=== PATIENT | male | born 1950 | race Caucasian/White ===

== ENCOUNTER → 2017-10-10 11:02 | Outpatient (CLI) | payer MEDICARE, OTHER, SELFPAY ==
[2017-10-10 09:46] VITALS: BP 143/83; BMI 28.7
[2017-10-10 12:02] LABS: Absolute Neutrophil Count 2.9 X10^3/uL (2.0-7.7); Basophil# 0.03 X10^3/uL; Basophil% 0.5 % (0-1); Eosinophil# 0.08 X10^3/uL; Eosinophils% 1.4 % (0-5); Hemoglobin 15.8 g/dl (13.0-16.5); Lymphocyte % 37.4 % (19-41); Mean Corp Hgb Conc 32.9 g/gl (32-36); Mean Corpuscular Hgb 33.9 pg (27.0-32.0); Monocyte# 0.67 X10^3/uL; Monocyte% 11.4 % (0-10); Neutrophil # 2.89 X10^3/uL (2.7-7.7); Neutrophil % 49.1 % (47-70); POSITIVE COUNT NO; POSITIVE DIFFERENTIAL NO; POSITIVE MORPHOLOGY NO; Platelet Count 171 K/mm3 (150-450); RBC Distribution Width SD 52.3 fl (35.1-43.9); Red Blood Count 4.66 M/mm3 (4.6-6.2); White Blood Count 5.9 K/mm3 (4.4-11.0)
[2017-10-10 12:29] LABS: AST(SGOT) 16 U/L (15-37); Alanine Aminotransfer ALT/SGPT 26 U/L (16-61); Albumin, Serum 3.8 g/dL (3.2-5.0); Alkaline Phosphatase 64 U/L (45-117); Anion Gap 5 (5-15); BUN 15 mg/dL (7-18); BUN/Creat Ratio 14.9 RATIO (10-20); Calcium,Total 8.8 mg/dL (8.5-10.1); Chloride 106 mmol/L (98-107); Cholesterol 232 mg/dL (200); Creatinine, Serum 1.01 mg/dL (0.70-1.30); EST Glomerular Filtration Rate 78 mL/min (>60); Est Glom Filt Rate - Afr Amer 95 mL/min (>60); Globulin 3.7 g/dL (2.2-4.2); Glucose 93 mg/dL (70-110); High Density Lipoprotein 37 mg/dL; Potassium 4.5 mmol/L (3.5-5.1); Protein, Total 7.5 g/dL (6.4-8.2); Sodium Level 138 mmol/L (136-145); Thyroid Stim Hormone (TSH) 1.85 uIU/mL (0.358-3.74); Triglycerides 117 mg/dL; Very Low Density Lipoprotein 23 mg/dL (5-40)
== END ==
PROVIDERS: Family Provider Internal Medicine; PCP Internal Medicine; Visit Provider Nurse Practitioner Family
DX: E78.5 Hyperlipidemia, unspecified (principal); J44.9 Chronic obstructive pulmonary disease, unspecified; G47.33 Obstructive sleep apnea (adult) (pediatric); N40.0 Benign prostatic hyperplasia without lower urinary tract symptoms; K64.9 Unspecified hemorrhoids; E66.9 Obesity, unspecified; Z13.29 Encounter for screening for other suspected endocrine disorder
CPT/HCPCS: 80053; 80061; 84443; 85025

== ENCOUNTER → 2017-12-04 09:36 | Outpatient (CLI) | payer MEDICARE, OTHER, SELFPAY ==
--- NOTE | 2017-12-04 09:55 | EKG12_ITS ---
Test Reason : PRE-OP Blood Pressure : / mmHG Vent. Rate : 050 BPM Atrial Rate : 050 BPM P-R Int : 150 ms QRS Dur : 088 ms QT Int : 448 ms P-R-T Axes : 062 073 064 degrees QTc Int : 408 ms Sinus bradycardia Otherwise normal ECG Confirmed by ISABEL GUNDERSON, OBN ([id number]), editor school photograph CARLY NOE ([id number]) on 12/05/2017 3:20:13 PM Referred By: Yang Abdul Confirmed By:BON HALL MD
--- NOTE | 2017-12-04 10:10 | RAD_ITS ---
STUDY: X-RAY CHEST REASON FOR EXAM: Male, 67 years old. Post operative evaluation for left knee arthroscopy, medial meniscectomy and chondroplasty. TECHNIQUE: PA and lateral views of the chest. COMPARISON: Prior chest radiograph of June 18, 2017. FINDINGS: Mild hyperexpansion. Negative for consolidation, focal atelectasis or pleural effusion. There is no demonstrated pleural abnormality. Normal size heart. Normal mediastinum and cher. Normal visualized pulmonary arteries. Normal visualized aortic arch and descending thoracic aorta. There are diffuse degenerative changes of the visualized thoracic spine. Normal visualized ribs, clavicles, and shoulders. There is no demonstrated abnormality of the visualized soft tissue structures of the upper abdomen. RAD/Chest PA and Lateral IMPRESSION: Mild hyperexpansion suggesting a component of COPD without other acute cardiopulmonary findings. Electronically Signed: Maribell Ellison MD at 22:43 EDT , Service support ,
[2017-12-04 10:30] LABS: Hematocrit 49.5 % (40-54); Hemoglobin 16.3 g/dl (13.0-16.5); Mean Corp Hgb Conc 32.9 g/gl (32-36); Mean Corpuscular Hgb 33.7 pg (27.0-32.0); Mean Corpuscular Volume 102.3 fL (80-94); Mean Platelet Vol. 10.1 fl (6.2-12.0); Platelet Count 160 K/mm3 (150-450); RBC Distribution Width CV 13.6 % (11.6-14.6); RBC Distribution Width SD 51.1 fl (35.1-43.9); Red Blood Count 4.84 M/mm3 (4.6-6.2); White Blood Count 5.3 K/mm3 (4.4-11.0)
[2017-12-04 10:33] LABS: Scan Indicated on CBC? Y/N NO
[2017-12-04 10:53] LABS: Anion Gap 6 (5-15); BUN 14 mg/dL (7-18); BUN/Creat Ratio 14.2 RATIO (10-20); Calcium,Total 8.8 mg/dL (8.5-10.1); Chloride 104 mmol/L (98-107); Creatinine, Serum 0.98 mg/dL (0.70-1.30); EST Glomerular Filtration Rate 81 mL/min (>60); Est Glom Filt Rate - Afr Amer 98 mL/min (>60); Glucose 104 mg/dL (74-106); Potassium 4.4 mmol/L (3.5-5.1); Sodium Level 137 mmol/L (136-145)
== END ==
PROVIDERS: Family Provider Internal Medicine; PCP Internal Medicine; Visit Provider Orthopaedic Surgery
DX: Z01.810 Encounter for preprocedural cardiovascular examination (principal); Z01.811 Encounter for preprocedural respiratory examination; Z01.818 Encounter for other preprocedural examination
CPT/HCPCS: 36415; 71046; 80048; 85027; 93005

== ENCOUNTER → 2017-12-13 11:09 | Outpatient (CLI) | payer MEDICARE, OTHER, SELFPAY ==
--- NOTE | 2017-12-13 11:11 | VDLE_ITS ---
Reason For Study: LLE PAIN RIGHT LEFT CFV is compressible, spontaneous, phasic, GSV is normal. competent and demonstrates normal CFV is compressible, spontaneous, phasic, augmentation. competent, and demonstrates normal Procedure augmentation. Exam performed in department. FV is compressible, spontaneous, phasic, The study was technically difficult. competent and demonstrates normal PT could not tolerate compression at left augmentation. knee area; relied on color and pulsed wave POP V is spontaneous, phasic, competent and doppler. demonstrates normal augmentation. Unable to A preliminary report was called and/or faxed compress due to knee pain; relied on color to Dr. Abdul @ [phone] @ 11:45 am. doppler and pulsed wave doppler to assess. T/P Trunk is compressible. PTV is compressible. LT PerV is compressible. Interpretation Summary Deep veins of the left lower extremity are patent and compressible segmentally. There is no evidence of left lower extremity deep vein thrombosis. Valvular competence appears intact within the proximal deep venous system on the left . The left greater saphenous vein appears patent and compressible segmentally. Ordering Physician: Yang Abdul Referring Physician: Wade Padilla Performed By: Deana Downey, SABRINA, RVT
== END ==
PROVIDERS: Family Provider Internal Medicine; PCP Internal Medicine; Visit Provider Orthopaedic Surgery
DX: M79.662 Pain in left lower leg (principal); M17.12 Unilateral primary osteoarthritis, left knee; S83.232A Complex tear of medial meniscus, current injury, left knee, initial encounter; X58.XXXA Exposure to other specified factors, initial encounter; Y93.9 Activity, unspecified; Y92.9 Unspecified place or not applicable; Y99.9 Unspecified external cause status
CPT/HCPCS: 93971

== ENCOUNTER 2018-04-12 18:05 | Emergency (ER) | payer MEDICARE, OTHER, SELFPAY ==
[2018-04-12 18:06] VITALS: BP 119/68; PULSE 76; RESP 16; TEMP 36.9; O2SAT 99; BMI 28.8
[2018-04-12 18:52] LABS: D-Dimer Quantitative (DVT/PE) 1.02 FEU/ug/m (0.27-0.49)
--- NOTE | 2018-04-12 19:07 | ED.VISSUMM ---
- ER Visit Summary Date of Service: 04/12/18 Chief Complaint: [Pain and swelling left leg] History of Present Illness: The patient is a 67 M [presents the emergency department with complaint of pain and swelling in his left leg that he has had off and on for quite some time. Patient states that he supposed to wear compression stockings in his left leg but has not on a regular basis.] Patient states that today he was working in the yard when he came in he noticed some rash and redness to the foot and ankle became concerned. Patient also is complaining of discomfort in his ankle and is concerned about possibility of gout. Patient denies any trauma to his leg. He denies recent travel or surgery. 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 Physical Examination: [HEENT-PERRLA, EOMI. Cranial nerves II through XII grossly intact. TMs clear. Mucous membranes moist. No adenopathy. Cardiovascular-regular rate and rhythm without murmur or ectopy Lungs-clear to auscultation, chest wall stable without crepitus or subcu emphysema Abdomen-normoactive bowel sounds, soft, nontender, no rebound or rigidity, no peritoneal signs. Extremities-intact ?4, normal range of motion, normal pulses, atraumatic. Left leg-patient does have some faint erythema over the area of the ankle and dorsum of the foot with patchy erythematous rash noted. No lymphogenic streaking noted. Neurovascular intact. Patient has some mild soft tissue swelling about the ankle. Mild tenderness on range of motion of the ankle. D-dimer obtained was elevated at one-point Test Results: [02.] Emergency Department Course and Treatment: Patient was given 1 dose of Xarelto 20 mg p.o. and 1 dose of Keflex 500 mg's p.o. [] Treatment Plan: [Patient will be treated with Keflex and I will have him come back tomorrow to have an ultrasound of the left lower extremity rule out DVT. At this point my suspicion for gout is low although I did advise patient to use ibuprofen as tolerated for discomfort. Patient also states he has pain medication at home.] Disposition: [Discharged home in stable condition] Impression: [Left ankle pain Cellulitis] This note was generated with [employer] dictation software. It may contain incorrect words, spelling, and punctuation that were not noted in review of the chart prior to signing ED Disposition - Plan for ED Patient: Chief Complaint: Lower Extremity Injury Referrals: Wade Padilla MD [Primary Care Provider] -
--- NOTE | 2018-04-12 19:10 | ED.RN ---
DR MITCHELL NOTIFIED OF DDIMER RESULTS
--- NOTE | 2018-04-12 19:14 | ED.DEP ---
ED Disposition - Plan for ED Patient: Chief Complaint: Lower Extremity Injury Instructions: ED Infec Skin Cellulitis Prescriptions: Cephalexin [Keflex] 500 mg PO Q6 #40 cap Referrals: Wade Padilla MD [Primary Care Provider] - 5-7 Days
[2018-04-12] MEDS: Cephalexin Suspension 250 MG/5 ML PO.SYRINGE 500 MG PO (19:30)
[2018-04-12] MEDS: Rivaroxaban 20 MG Tablet PO (19:30)
== END 2018-04-12 19:36 | disposition home or self-care (01) ==
PROVIDERS: Emergency Provider Emergency Medicine; Family Provider Internal Medicine; PCP Internal Medicine
DX: M25.572 Pain in left ankle and joints of left foot (principal); L03.116 Cellulitis of left lower limb; R74.9 Abnormal serum enzyme level, unspecified; G47.30 Sleep apnea, unspecified; Z72.0 Tobacco use; Z79.82 Long term (current) use of aspirin; Z79.899 Other long term (current) drug therapy; Z86.718 Personal history of other venous thrombosis and embolism
CPT/HCPCS: 85379; 99283

== ENCOUNTER 2018-04-13 09:49 | Emergency (ER) | payer MEDICARE, OTHER, SELFPAY ==
[2018-04-13 09:50] VITALS: BP 149/74; PULSE 55; RESP 18; TEMP 36.6; O2SAT 96; BMI 27.1
--- NOTE | 2018-04-13 10:10 | VDLE_ITS ---
Reason For Study: SWELLING Procedure LEFT Exam performed portable in patient room. GSV is normal. A preliminary report was called and/or faxed CFV is compressible, spontaneous, phasic, to ED. competent, and demonstrates normal augmentation. FV is compressible, spontaneous, phasic, competent and demonstrates normal augmentation. POP V is compressible, spontaneous, phasic, competent and demonstrates normal augmentation. T/P Trunk is compressible. PTV is compressible. LT PerV is compressible. Interpretation Summary Deep veins of the left lower extremity are patent and compressible segmentally. There is no evidence of left lower extremity deep vein thrombosis. Valvular competence appears intact within the proximal deep venous system on the left . The left greater saphenous vein appears patent and compressible segmentally. Ordering Physician: Kathia Gamez Referring Physician: Ida Cruz Performed By: Lilli Pham, SABRINA, RVT
--- NOTE | 2018-04-13 10:11 | ED.VISSUMM ---
- ER Visit Summary Date of Service: 04/13/18 Chief Complaint: [] Rash to the left leg, now the right leg, now the hands, sore throat needs duplex scan History of Present Illness: The patient is a 67 M [] he reports that basically for a few days he has noticed swelling to the left lower extremity with a rash he does report history of DVT in that lower extremity related to knee surgery about a year or 2 ago, he has had persistent intermittent edema to that extremity, then in January 2018 had recurrent knee surgery in his knee condition and leg problems seem to improve, he reports was out working in the yard he suffered no direct trauma he cannot explain why he has a rash and he indicates he has history of gout and is concerned that gout may be contributing to part of his condition Was seen yesterday in the emergency department workup was generally unremarkable he was instructed to have a duplex scan done today, to rule out DVT in the left leg, he was not called by the duplex technologist he reports and he presents to the emergency department to obtain a duplex scan, In addition today he reports he noticed small similar bumps on the right leg that are present on the left leg but they were not present yesterday, he further reports that today he has the same types of bumps on the palms of his hands, he has had a sore throat for a few days he did not mention to the physicians yesterday There is also believe that his granddaughter has similar lesions on her hands and feet and sore throat He indicates he believes his daughter might have some type of a URI process Been eating and drinking well no chest pain shortness of breath no fever no cough his review of systems otherwise negative Physical Examination: [] Is resting comfortably in the bed he has about 2+ edema to the left ankle region, he does have small papules scattered throughout the foot dorsal plantar left, he has similar lesions now on the right foot dorsal and plantar surface, he has no real pain to the extremity except some mild discomfort when he tries to dorsiflex the left ankle there is no signs of joint infection, he has no skin breakdown petechia or purpura anywhere in his body, his hands he has similar small bumps on the palms of his hands and dorsal surface of hands, his throat shows some redness no obvious vesicles Is resting in the bed no distress speaking full sentences his neck is very supple his lungs are clear his heart tones are normal the abdomen soft nontender the upper lower extremity skin exam are as above Now this all began with left lower extremity rash and edema and some mild pain the patient has progressed now to have rash on both lower extremities and the hands and a sore throat this is consistent with ghmo-bznc-tfa-mouth condition, 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 and was to obtain an outpatient duplex scan he is interested in having the duplex scan done and will contact the duplex tach and they will be in to do his scan shortly The patient's labs CBC chemistry are all generally unremarkable x-ray of the ankle were unremarkable duplex scan showed no signs of DVT may be some regional lymph nodes While in the ED the patient's granddaughter came in to be evaluated by the other providers and was found to have emve-uyiq-fej-mouth disease Test Results: [] Explained all the above the patient I explained to visually no signs of cellulitis this is likely abpt-synd-gwd-mouth disease contributing to his constellation of symptoms he was given 1 dose of Keflex yesterday I provide him additional dose of Keflex as a iwvb-gja-fcc measure if he feels the rash is getting worse he can take the Keflex otherwise and follow-up his family doctor tomorrow if he needs walking aid such as a walker will provide that Aircast and he will return for change in symptoms and we also discussed the concept of pdkl-ihgt-hyf-mouth disease contagious nature how to manage the condition etc. Emergency Department Course and Treatment: [] Treatment Plan: [] Disposition: [] Home stable Impression: [] Lesions on hand and feet oral cavity suspect hand-foot mouth disease, left lower extremity edema This note was generated with [employer] dictation software. It may contain incorrect words, spelling, and punctuation that were not noted in review of the chart prior to signing ED Disposition - Plan for ED Patient: Chief Complaint: Cellulitis Referrals: Wade Padilla MD [Primary Care Provider] -
--- NOTE | 2018-04-13 10:16 | ED.DCSUM_ITS ---
- ER Visit Summary Date of Service: 04/13/18 Chief Complaint: [] Rash to the left leg, now the right leg, now the hands, sore throat needs duplex scan History of Present Illness: The patient is a 67 M [] he reports that basically for a few days he has noticed swelling to the left lower extremity with a rash he does report history of DVT in that lower extremity related to knee surgery about a year or 2 ago, he has had persistent intermittent edema to that extremity, then in January 2018 had recurrent knee surgery in his knee condition and leg problems seem to improve, he reports was out working in the yard he suffered no direct trauma he cannot explain why he has a rash and he indicates he has history of gout and is concerned that gout may be contributing to part of his condition Was seen yesterday in the emergency department workup was generally unremarkable he was instructed to have a duplex scan done today, to rule out DVT in the left leg, he was not called by the duplex technologist he reports and he presents to the emergency department to obtain a duplex scan, In addition today he reports he noticed small similar bumps on the right leg that are present on the left leg but they were not present yesterday, he further reports that today he has the same types of bumps on the palms of his hands, he has had a sore throat for a few days he did not mention to the physicians yesterday There is also believe that his granddaughter has similar lesions on her hands and feet and sore throat He indicates he believes his daughter might have some type of a URI process Been eating and drinking well no chest pain shortness of breath no fever no cough his review of systems otherwise negative Physical Examination: [] Is resting comfortably in the bed he has about 2+ edema to the left ankle region, he does have small papules scattered throughout the foot dorsal plantar left, he has similar lesions now on the right foot dorsal and plantar surface, he has no real pain to the extremity except some mild discomfort when he tries to dorsiflex the left ankle there is no signs of joint infection, he has no skin breakdown petechia or purpura anywhere in his body, his hands he has similar small bumps on the palms of his hands and dorsal surface of hands, his throat shows some redness no obvious vesicles Is resting in the bed no distress speaking full sentences his neck is very supple his lungs are clear his heart tones are normal the abdomen soft nontender the upper lower extremity skin exam are as above Now this all began with left lower extremity rash and edema and some mild pain the patient has progressed now to have rash on both lower extremities and the hands and a sore throat this is consistent with fhva-fexm-ixl-mouth condition, 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 and was to obtain an outpatient duplex scan he is interested in having the duplex scan done and will contact the duplex tach and they will be in to do his scan shortly The patient's labs CBC chemistry are all generally unremarkable x-ray of the ankle were unremarkable duplex scan showed no signs of DVT may be some regional lymph nodes While in the ED the patient's granddaughter came in to be evaluated by the other providers and was found to have txie-iyeh-mie-mouth disease Test Results: [] Explained all the above the patient I explained to visually no signs of cellulitis this is likely nyda-puvi-yhh-mouth disease contributing to his constellation of symptoms he was given 1 dose of Keflex yesterday I provide him additional dose of Keflex as a iyqo-iii-jxj measure if he feels the rash is getting worse he can take the Keflex otherwise and follow-up his family doctor tomorrow if he needs walking aid such as a walker will provide that Aircast and he will return for change in symptoms and we also discussed the concept of hand- para-obx-jjkrw disease contagious nature how to manage the condition etc. Emergency Department Course and Treatment: [] Treatment Plan: [] Disposition: [] Home stable Impression: [] Lesions on hand and feet oral cavity suspect hand-foot mouth disease, left lower extremity edema This note was generated with [employer] dictation software. It may contain incorrect words, spelling, and punctuation that were not noted in review of the chart prior to signing ED Disposition - Plan for ED Patient: Chief Complaint: Cellulitis Referrals: Wade Padilla MD [Primary Care Provider] -
--- NOTE | 2018-04-13 10:30 | RAD_ITS ---
STUDY: X-RAY - LEFT ANKLE REASON FOR EXAM: Male, 67 years old. History of rash. No known injury. TECHNIQUE: 3 view(s) of the ankle. COMPARISON: None. FINDINGS: Normal visualized distal tibia and fibula. Normal medial and lateral malleoli. Normal tibiotalar articulation and ankle mortise. There is a plantar calcaneal spur. The visualized subtalar, talonavicular, calcaneocuboid and tarsal articulations are normal. There is no demonstrated fracture. There is diffuse soft tissue swelling. RAD/Ankle min 3 Views IMPRESSION: Diffuse soft tissue swelling. No demonstrated acute osseous injury. Electronically Signed: Silver Fam MD at 11:20 EDT Tel , Service support ,
[2018-04-13 10:49] LABS: Absolute Lymphocyte Count 1.51 X10^3/ul (0.83-4.51); Absolute Neutrophil Count 1.4 X10^3/uL (2.0-7.7); Basophil# 0.02 X10^3/uL; Basophil% 0.5 % (0-1); Eosinophil# 0.06 X10^3/uL; Eosinophils% 1.6 % (0-5); Hematocrit 46.3 % (40-54); Hemoglobin 15.1 g/dl (13.0-16.5); Lymphocyte # 1.51 X10^3/ul (4.0); Mean Corp Hgb Conc 32.6 g/gl (32-36); Mean Corpuscular Hgb 33.6 pg (27.0-32.0); Mean Corpuscular Volume 103.1 fL (80-94); Mean Platelet Vol. 9.6 fl (6.2-12.0); Monocyte# 0.74 X10^3/uL; Monocyte% 20.1 % (0-10); Neutrophil # 1.35 X10^3/uL (2.7-7.7); Neutrophil % 36.8 % (47-70); Platelet Count 141 K/mm3 (150-450); RBC Distribution Width SD 53.1 fl (35.1-43.9); Red Blood Count 4.49 M/mm3 (4.6-6.2); White Blood Count 3.7 K/mm3 (4.4-11.0)
[2018-04-13 10:50] LABS: POSITIVE COUNT NO; POSITIVE DIFFERENTIAL NO; POSITIVE MORPHOLOGY NO
[2018-04-13] MEDS: Ondansetron 4 MG/2 ML Vial IV (10:58)
[2018-04-13] MEDS: 0.9% Normal Saline 1,000 ML 100 ML IV (10:58)
[2018-04-13] MEDS: Morphine 4 MG/ML Syringe IV (10:58)
[2018-04-13 11:01] LABS: Anion Gap 9 (5-15); BUN 11 mg/dL (7-18); BUN/Creat Ratio 12.2 RATIO (10-20); Calcium,Total 8.6 mg/dL (8.5-10.1); Chloride 106 mmol/L (98-107); EST Glomerular Filtration Rate 89 mL/min (>60); Est Glom Filt Rate - Afr Amer 108 mL/min (>60); Estimated Creatinine Clearance 84.83 ml/min; Glucose 96 mg/dL (74-106); Potassium 4.3 mmol/L (3.5-5.1); Sodium Level 141 mmol/L (136-145)
--- NOTE | 2018-04-13 12:54 | ED.DEP ---
ED Disposition - Plan for ED Patient: Chief Complaint: Cellulitis Instructions: ED Hand Foot Mouth Disease Ch Prescriptions: Hydrocodone/Acetaminophen [[place] 5-325 Tablet] 1 ea PO BID #7 tab Referrals: Wade Padilla MD [Primary Care Provider] -
--- NOTE | 2018-04-13 12:58 | DCINST.ED_ITS ---
ED Disposition - Plan for ED Patient: Chief Complaint: Cellulitis Instructions: ED Hand Foot Mouth Disease Ch Prescriptions: Cephalexin [Keflex] 500 mg PO Q6 #40 cap Hydrocodone/Acetaminophen [[place] 5-325 Tablet] 1 ea PO BID #7 tab Referrals: Wade Padilla MD [Primary Care Provider] -
--- NOTE | 2018-04-13 13:22 | ED.DEP ---
ED Disposition - Plan for ED Patient: Chief Complaint: Cellulitis Instructions: ED Hand Foot Mouth Disease Ch Prescriptions: Cephalexin [Keflex] 500 mg PO Q6 #40 cap Hydrocodone/Acetaminophen [[place] 5-325 Tablet] 1 ea PO BID #7 tab Walker [Ultra-Light Rollator] 1 ea MC BID #1 ea Referrals: Wade Padilla MD [Primary Care Provider] -
[2018-04-13 13:38] VITALS: BP 138/87; PULSE 58; RESP 16; O2SAT 98
== END 2018-04-13 13:39 | disposition home or self-care (01) ==
PROVIDERS: Emergency Provider Emergency Medicine; Family Provider Internal Medicine; PCP Internal Medicine
DX: B08.4 Enteroviral vesicular stomatitis with exanthem (principal); R60.0 Localized edema; Z79.82 Long term (current) use of aspirin; Z79.899 Other long term (current) drug therapy; Z86.718 Personal history of other venous thrombosis and embolism
CPT/HCPCS: 73610; 80048; 85025; 93971; 96361; 96374; 96375; 99284; J7030; A4216; J2405

== ENCOUNTER → 2018-04-28 08:53 | Outpatient (CLI) | payer MEDICARE, OTHER, SELFPAY ==
[2017-10-15 09:11] VITALS: BP 150/72
[2017-10-15 09:26] VITALS: BMI 28.7
[2018-04-28 09:46] VITALS: PULSE 55; PULSE 57; PULSE 67; PULSE 74; PULSE 77; PULSE 78; PULSE 79; O2SAT 96; O2SAT 97; O2SAT 98; O2SAT 99
--- NOTE | 2018-04-28 13:23 | PCM.PSN.6M ---
PSN 6 Minute Walk Test - 6 Minute Walk Test 6 Minute Walk Test: 6 Minute Walk Test PSN:6-Minute Walk Test Start: 04/28/18 09:46 Freq: Status: Active Protocol: RESP.6MINW Document 04/28/18 09:46 JERILYN (Rec: 04/28/18 09:48 JERILYN [id number]) 6 Minute Walk Test Date Performed 04/28/18 Time Performed 09:05 Height 5 ft 10 in Weight: 87.543 kg Weight in Pounds 193.[address]: Oswaldo La Assistive device used: None Pre-test Oxygen Delivery Method Room Air Pulse Ox (%) 98 Pulse Rate (60-100 beats/min) 55 L Dyspnea David Scale (0-10) 0 Exertion David Scale (6-20) 6 1st minute Oxygen Delivery Method Room Air Pulse Ox (%) 98 Pulse Rate (60-100 beats/min) 67 2nd minute Oxygen Delivery Method Room Air Pulse Ox (%) 97 Pulse Rate (60-100 beats/min) 74 3rd minute Oxygen Delivery Method Room Air Pulse Ox (%) 99 Pulse Rate (60-100 beats/min) 77 4th minute Oxygen Delivery Method Room Air Pulse Ox (%) 98 Pulse Rate (60-100 beats/min) 78 5th minute Oxygen Delivery Method Room Air Pulse Ox (%) 96 Pulse Rate (60-100 beats/min) 79 6th minute Oxygen Delivery Method Room Air Pulse Ox (%) 98 Pulse Rate (60-100 beats/min) 79 Dyspnea David Scale (0-10) 0.5 Exertion David Scale (6-20) 13 Post-test Oxygen Delivery Method Room Air Pulse Ox (%) 99 Pulse Rate (60-100 beats/min) 57 L Full Laps Walked 18 Partial Lap, Number of Tiles Walked 10 Total Distance Walked (ft) 1072 - Interpretation Interpretation: The patient was able to ambulate 1072 feet over the course of 6 minutes on room air with no assistive devices or breaks. There is no significant desaturation or tachycardia noted. These findings are consistent with a normal exercise tolerance. - Recommendations Recommendations: No supplemental oxygen is indicated at this time.
== END ==
PROVIDERS: Family Provider Internal Medicine; PCP Internal Medicine; Visit Provider Nurse Practitioner Acute Care
DX: J41.0 Simple chronic bronchitis (principal)
CPT/HCPCS: 94618

== ENCOUNTER → 2018-05-02 08:00 | Outpatient (CLI) | payer MEDICARE, OTHER, SELFPAY | PROVIDERS: Family Provider Internal Medicine; PCP Internal Medicine; Visit Provider Internal Medicine | DX: R06.02 Shortness of breath (principal); E78.5 Hyperlipidemia, unspecified; I10 Essential (primary) hypertension | CPT/HCPCS: 93005; 93306 ==

== ENCOUNTER → 2018-05-08 06:44 | Outpatient (CLI) | payer MEDICARE, OTHER, SELFPAY ==
[2017-10-15 09:11] VITALS: BP 150/72
[2017-10-15 09:26] VITALS: BMI 28.7
--- NOTE | 2018-05-08 11:12 | PFT ---
INTRODUCTION: The patient is a 67-year-old male that presents for pulmonary function testing secondary to a diagnosis of dyspnea. Respiratory therapy reports good patient effort. Bronchodilators were used during testing. Forced expiration spirometry INTERPRETATION: Forced expiration spirometry demonstrates no evidence of a large airways obstructive ventilatory defect. There was no significant response to aerosolized bronchodilators. Spirograms are of good quality and plateau normally. The respiratory flow volume loop appears normal. Body plethysmography was performed and reveals lung volumes to be within normal limits. Diffusing capacity by single breath CO is also within normal limits. IMPRESSION: Grossly normal pulmonary function testing.
== END ==
PROVIDERS: Family Provider Internal Medicine; PCP Internal Medicine; Visit Provider Nurse Practitioner Acute Care
DX: J41.0 Simple chronic bronchitis (principal); R06.00 Dyspnea, unspecified
CPT/HCPCS: 94060; 94726; 94729

== ENCOUNTER → 2018-05-10 08:27 | Outpatient (CLI) | payer MEDICARE, OTHER, SELFPAY ==
[2018-05-10 10:18] LABS: Anion Gap 8 (5-15); BUN 17 mg/dL (7-18); BUN/Creat Ratio 17.8 RATIO (10-20); Calcium,Total 8.9 mg/dL (8.5-10.1); Chloride 105 mmol/L (98-107); Cholesterol 149 mg/dL (200); Creatinine, Serum 0.96 mg/dL (0.70-1.30); EST Glomerular Filtration Rate 83 mL/min (>60); Est Glom Filt Rate - Afr Amer 101 mL/min (>60); Glucose 104 mg/dL (74-106); High Density Lipoprotein 36 mg/dL; Potassium 4.2 mmol/L (3.5-5.1); Sodium Level 139 mmol/L (136-145); T4 Free Direct 0.87 ng/dL (0.76-1.46); Triglycerides 97 mg/dL; Very Low Density Lipoprotein 19 mg/dL (5-40)
== END ==
PROVIDERS: Family Provider Internal Medicine; PCP Internal Medicine; Visit Provider Internal Medicine
DX: I10 Essential (primary) hypertension (principal); E78.5 Hyperlipidemia, unspecified; R00.1 Bradycardia, unspecified
CPT/HCPCS: 36415; 80048; 80061; 84439; 84443

== ENCOUNTER → 2018-06-16 11:29 | Outpatient (CLI) | payer MEDICARE, OTHER, SELFPAY ==
--- NOTE | 2018-06-16 11:32 | RAD_ITS ---
STUDY: X-RAY - PELVIS AND RIGHT HIP REASON FOR EXAM: Male, 67 years old. Right hip pain. TECHNIQUE: Radiological exam, hip, unilateral, with pelvis when performed; 2 or 3 views. COMPARISON: None. FINDINGS: There is a non-specific bowel gas pattern. Normal visualized soft tissue structures. Normal bilateral iliac wings, sacroiliac joints and visualized sacrum. Normal bilateral superior and inferior pubic rami. Normal pubic symphysis. Normal bilateral ischial tuberosities. Normal visualized femoral head. Normal acetabulum. Normal hip joint. RAD/HIP, UNI W/ Pelvis 2-3 Views IMPRESSION: Normal x-ray examination of the pelvis and right hip. Electronically Signed: Fitz Rayo MD at 13:42 EDT , Service support ,
--- NOTE | 2018-06-16 11:32 | RAD_ITS ---
STUDY: X-RAY - LUMBAR SPINE REASON FOR EXAM: Male, 67 years old. Low back pain. TECHNIQUE: 5 view(s) of the lumbar spine were obtained. COMPARISON: None FINDINGS: Normal lumbar lordosis. There is no substantial scoliosis. There is a normal alignment of the vertebrae. 6 lumbar type vertebral bodies. 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 Using the above convention, there is minimal anterior wedging of the superior endplates of L1 and L2 vertebral bodies. Mild narrowing of the L4-L5 disc space height. Minimal posterior intradiscal calcification at L5 L6 disc level. No acute fractures. Extensive vascular calcifications of the lower abdominal aorta and the common iliac arteries. RAD/L/S Spine Min 4 Views IMPRESSION: 1. No acute osseous abnormality of the lumbar spine. 2. 6 lumbar type vertebral bodies. 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 3. Minimal anterior wedging of the L1 and L2 superior endplates may be developmental or from remote injury. 4. Mild L4-L5 degenerative disc space height narrowing. 5. Minimal posterior intradiscal calcifications at L5 L6 disc level. Electronically Signed: Fitz Rayo MD at 13:45 EDT , Service support ,
== END ==
PROVIDERS: Family Provider Internal Medicine; PCP Internal Medicine; Referring Provider Internal Medicine; Visit Provider Internal Medicine
DX: M54.9 Dorsalgia, unspecified (principal); M25.551 Pain in right hip
CPT/HCPCS: 72110; 73502

== ENCOUNTER 2018-06-25 19:45 | Emergency (ER) | payer MEDICARE, OTHER, SELFPAY ==
[2018-06-25 19:46] VITALS: BP 138/77; PULSE 78; RESP 18; TEMP 36.4; O2SAT 96; BMI 28.0
--- NOTE | 2018-06-25 20:25 | ED.VISSUMM ---
- ER Visit Summary Date of Service: 06/25/18 Chief Complaint: Back pain History of Present Illness: The patient is a [address] Abdul and Dr. Padilla. 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 States that over the same timeframe he is developed low back pain. He describes an aching pain that is 10 out of 10 severity at worst and 9 out of 10 currently. Is worsened by nothing including movement. States that it is partially relieved by a hot tub and ice. He is taken a Medrol Dosepak, [place], and nabumetone without relief. States that it radiates to the anterior surface of his right thigh and he has right hip pain as well. He denies any numbness or weakness. No problems with his bowels or his bladder. No groin numbness. No other trauma. No fall or MVA. Physical Examination: Vitals: Stable. Afebrile. General: A&O x 3. NAD. Cardiovascular exam: Regular rate and rhythm, no murmur, rub or gallop. Respiratory exam: Clear to auscultation bilaterally. No wheezes or stridor. Abdominal exam: Soft, nontender, nondistended, normal bowel sounds. No peritoneal signs. Back: Moderate tenderness to palpation over the paraspinous musculature in the right lumbar region. No point tenderness. Negative straight leg bilaterally. 5/5 DF, PF, EHL bilaterally. Normal sensation to light touch throughout. No rash to suggest shingles. Extremity: No clubbing, cyanosis, or edema. No pain with internal or external rotation of his hip. Test Results: Patient had already had x-rays of his LS spine and hip. These were reviewed as were the reads and it showed nothing acute. Emergency Department Course and Treatment: Had a prolonged discussion the patient at this time I do not have a whole lot more to offer. He was given a dose of Kenalog IM. Treatment Plan: I suggested to the patient that if his back began hurting when he started this job that he take some time off and see if it improves. He will have his [place] changed to Percocet. I also discussed with him getting in to see Dr. Chantell Pandya as soon as possible. With pain radiating to his right leg he may have a radiculopathy. The signs and symptoms of cauda equina syndrome were discussed and he was instructed to return for these. Disposition: To home in improved and stable condition. Impression: 1. Low back pain. This note was generated with [employer] dictation software. It may contain incorrect words, spelling, and punctuation that were not noted in review of the chart prior to signing ED Disposition - Plan for ED Patient: Disposition: Home or Assisted Living Chief Complaint: Back Instructions: ED Neck Back Pain General Prescriptions: Oxycodone HCl/Acetaminophen [Percocet 5/325] 1 tablet PO Q6H PRN PRN 5 Days #20 tablet PRN Reason: Pain Docusate Sodium [Colace] 100 mg PO DAILY #20 capsule Referrals: Yang Abdul DO [STAFF PHYSICIAN] - As soon as possible
[2018-06-25] MEDS: Triamcinolone Acetonide 40 MG/ML Vial 80 MG IM (20:34)
[2018-06-25] MEDS: oxyCODONE 5 MG Tablet PO (20:35)
== END 2018-06-25 20:51 | disposition home or self-care (01) ==
LOC: ED 20:41
PROVIDERS: Emergency Provider Emergency Medicine; Family Provider Internal Medicine; PCP Internal Medicine
DX: M54.5 Low back pain (principal); M25.551 Pain in right hip; M79.651 Pain in right thigh; I10 Essential (primary) hypertension; R05 Cough; G47.33 Obstructive sleep apnea (adult) (pediatric); Z72.0 Tobacco use; Z79.82 Long term (current) use of aspirin; Z79.899 Other long term (current) drug therapy
CPT/HCPCS: 96372; 99282

== ENCOUNTER 2018-06-30 03:04 | Emergency (ER) | payer MEDICARE, OTHER, SELFPAY ==
[2018-06-30 03:05] VITALS: BP 174/78; PULSE 65; RESP 18; TEMP 36.4; O2SAT 96; BMI 28.0
--- NOTE | 2018-06-30 03:42 | RAD_ITS ---
STUDY: X-RAY - RIGHT KNEE REASON FOR EXAM: Male, 67 years old. Pain TECHNIQUE: 4 view(s) of the knee. COMPARISON: None. FINDINGS: Normal visualized distal femur. Normal visualized proximal tibia and fibula. Normal proximal tibiofibular articulation. Normal medial femorotibial compartment. Normal lateral femorotibial compartment. Normal patellofemoral articulation. There is prepatellar soft tissue swelling. There is NO joint effusion. RAD/Knee 4 or More Views IMPRESSION: Normal x-ray examination of the knee. Electronically Signed: Rahat Alvarez MD at 4:13 EDT , Service support ,
[2018-06-30] MEDS: Ondansetron 4 MG/2 ML Vial IM (04:03)
[2018-06-30] MEDS: morphine 10 MG/ML Syringe 8 MG IM (04:04)
--- NOTE | 2018-06-30 04:46 | CT_ITS ---
STUDY: CT ABDOMEN AND PELVIS WITHOUT CONTRAST REASON FOR EXAM: Male, 67 years old. Flank pain RADIATION DOSAGE (If Supplied By Facility): CTDIvol = ( 16.20 ) mGy, DLP = ( 781.06 ) mGycm TECHNIQUE: Transaxial images were obtained from the dome of the diaphragm to the symphysis pubis without oral contrast, and without intravenous contrast. Sagittal and coronal images were reconstructed. Individualized dose optimization techniques were used for this CT. COMPARISON: 11/19/2016 FINDINGS: The visualized lung bases are unremarkable. The visualized portions of the heart are within normal limits. Normal liver. Normal gallbladder and extrahepatic biliary system. Normal spleen. Normal pancreas. Normal bilateral adrenal glands. Normal right kidney. Normal left kidney. Normal visualized stomach. Normal small intestine. Normal colon. The appendix is visualized and appears normal. There is diffuse atherosclerotic calcification of the abdominal aorta, without a demonstrated aneurysm. Normal inferior vena cava. Normal retroperitoneum. Normal urinary bladder. There is NO ascites or free air, abscess or adenopathy. Normal abdominal wall. Normal osseous structures. CT/Abdomen/Pelvis without Cont IMPRESSION: There is NO acute intra-abdominal abnormality. Electronically Signed: Rahat Alvarez MD at 6:05 EDT , Service support ,
[2018-06-30] MEDS: diazePAM 5 MG Tablet PO (05:00)
--- NOTE | 2018-06-30 05:05 | ED.DCSUM_ITS ---
- ER Visit Summary Date of Service: 06/30/18 Chief Complaint: Back pain History of Present Illness: The patient is a 67 M presenting with back pain. He states this has been ongoing for the past month. He was seen in the ED last week for same complaints. He has been on steroids, muscle relaxers, and Perco cet. He states he does still have Percocet available to him. He does not believe it is helping. He had no new injury. He states this started after going back to work a month ago. 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 He denies fever. Denies chest pain or shortness of breath. Denies bowel or bladder incontinence. Physical Examination: Vitals are stable. Patient is afebrile. Alert no acute distress. HEENT exam is unremarkable. Neck is supple. Lungs are clear and equal bilaterally. Heart is regular rate and rhythm. Abdomen is soft nontender nondistended. Back: Right paraspinal lumbar muscle tenderness, no midline tenderness Extremities mild anterior right knee tenderness with no effusion. No erythema or warmth. Active full range of motion. Skin is warm and dry. No focal neurologic deficit. Remainder of exam is unremarkable. Emergency Department Course and Treatment: Patient given morphine, Zofran IM. Right knee x-ray shows no acute process. He declined lumbar x-ray. He was given Valium p.o. CT abdomen pelvis without contrast shows no acute process. On reevaluation, patient is resting comfortably. He is advised to follow-up with his primary care physician and his orthopedic surgeon as scheduled. Advised return to ED for worsening complaints. Disposition: Discharge home Impression: Acute on chronic back pain This note was generated with [employer] dictation software. It may contain incorrect words, spelling, and punctuation that were not noted in review of the chart prior to signing ED Disposition - Plan for ED Patient: Chief Complaint: Back Instructions: ED Neck Back Pain General Referrals: Wade Padilla MD [Primary Care Provider] - Yang Abdul DO [STAFF PHYSICIAN] -
--- NOTE | 2018-06-30 06:26 | ED.DEP ---
ED Disposition - Plan for ED Patient: Chief Complaint: Back Instructions: ED Neck Back Pain General Referrals: Wade Padilla MD [Primary Care Provider] - Yang Abdul DO [STAFF PHYSICIAN] -
[2018-06-30 06:35] VITALS: BP 140/76; PULSE 83; RESP 16; O2SAT 93
== END 2018-06-30 07:11 | disposition home or self-care (01) ==
LOC: ED 03:45
PROVIDERS: Emergency Provider Emergency Medicine; Family Provider Internal Medicine; PCP Internal Medicine
DX: M54.9 Dorsalgia, unspecified (principal); G89.29 Other chronic pain; M25.551 Pain in right hip; I10 Essential (primary) hypertension; K59.00 Constipation, unspecified; Z72.0 Tobacco use; Z79.82 Long term (current) use of aspirin; Z79.899 Other long term (current) drug therapy
CPT/HCPCS: 73564; 74176; 96372; 99282; 99283; J2405

== ENCOUNTER 2018-06-30 15:20 | Emergency (ER) | payer MEDICARE, OTHER, SELFPAY ==
[2018-06-30 15:21] VITALS: BP 165/77; PULSE 62; RESP 18; TEMP 36.6; O2SAT 97; BMI 27.3
[2018-06-30] MEDS: HYDROmorphone 1 MG/ML Syringe IM (16:00)
--- NOTE | 2018-06-30 16:01 | ED.DCSUM_ITS ---
- ER Visit Summary Date of Service: 06/30/18 Chief Complaint: Right hip pain History of Present Illness: The patient is a 67 M in the ER earlier this morning by the overnight physician. At that time had a CT of his abdomen done which showed no acute abnormality. He states he has had recent LS spine and right hip x-rays which were unremarkable I did review these films and I agree. He is complaining of pain primarily in his right hip radiates down to his right groin. He denies any fall or trauma. No fever. He is on no blood thinners. He does state at times he is tingling or numbness in his right foot but currently that is not the case. He denies any weakness. He denies any bowel or bladder in continence. He was placed on Percocet for this which is causing some constipation but he did have a bowel movement today. He denies any fever. He denies any weight loss. He denies any prior back surgery. Physical Examination: Well-appearing older male. Vital signs are stable afebrile. H EENT exam unremarkable. Lungs clear to auscultation bilaterally. Heart regular rhythm no murmur. Abdomen soft nontender. Normal bowel sounds no peritoneal signs. Patient is moving all 4 extremities. Neurovascular intact. 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 5 out of 5 dorsi plantar flexion and dorsiflexion in both lower extremities. Normal touch sensation. No cauda equina. No saddle anesthesia. Negative straight leg raise bilaterally. His back is currently nontender both to the spine and paraspinal soft tissues. Negative SI joint tenderness. He does have reproducible pain on his right hip. And is worse with internal rotation of his right hip. Test Results: None done. I did review the patient's recent LS spine films which were unremarkable. In his right hip and pelvis x-ray again both were unremarkable. Emergency Department Course and Treatment: Treated with IM Dilaudid. On repeat exam his pain is improved with IM Dilaudid. Explained to patient that he needs an MRI of his hip if this does not show a specific cause of his hip pain that he needs an MRI of his LS spine. He is frustrated that this can be done today explained to him these are outpatient test and need insurance authorization. I have his primary care physician on page to discuss this with her. Treatment Plan: Continue his Percocet for pain. Follow-up with his primary care physician to get the MRI is ordered of his right hip and/or lumbar spine. Disposition: Discharge Impression: Acute right hip pain of musculoskeletal etiology This note was generated with [employer] dictation software. It may contain incorrect words, spelling, and punctuation that were not noted in review of the chart prior to signing ED Disposition - Plan for ED Patient: Chief Complaint: Back Referrals: Wade Padilla MD [Primary Care Provider] -
--- NOTE | 2018-06-30 17:21 | ED.DEP ---
ED Disposition - Plan for ED Patient: Disposition: Home or Assisted Living Chief Complaint: Back Referrals: Wade Padilla MD [Primary Care Provider] - As soon as possible Additional Instructions: Continue your Percocet for pain. Call follow-up with your primary care physician Dr. Padilla. You will need to have the schedule you an MRI of your hip and if that does not specifically diagnose the cause your pain you may need an MRI of your lower back.
[2018-06-30 17:26] VITALS: RESP 18
== END 2018-06-30 17:35 | disposition home or self-care (01) ==
PROVIDERS: Emergency Provider Emergency Medicine; Family Provider Internal Medicine; PCP Internal Medicine
DX: M25.551 Pain in right hip (principal); M54.9 Dorsalgia, unspecified; G89.29 Other chronic pain; I10 Essential (primary) hypertension; K59.00 Constipation, unspecified; Z72.0 Tobacco use; Z79.82 Long term (current) use of aspirin; Z79.899 Other long term (current) drug therapy

== ENCOUNTER 2018-07-05 09:03 | Inpatient (IN) | payer MEDICARE, OTHER, SELFPAY ==
[2018-07-05 09:11] VITALS: BP 169/69; PULSE 68; RESP 18; TEMP 36.7; O2SAT 96; BMI 27.0
[2018-07-05 09:19] VITALS: BP 168/56; RESP 18
--- NOTE | 2018-07-05 09:26 | CT_ITS ---
STUDY: CT ABDOMEN AND PELVIS WITHOUT CONTRAST REASON FOR EXAM: Male, 67 years old. No bowel movement for 10 days, low back pain RADIATION DOSAGE (If Supplied By Facility): CTDIvol = ( 18.62 ) mGy, DLP = ( 907.14 ) mGycm TECHNIQUE: Transaxial images were obtained from the dome of the diaphragm to the symphysis pubis without oral contrast, and without intravenous contrast. Sagittal and coronal images were reconstructed. Individualized dose optimization techniques were used for this CT. COMPARISON: 06/30/2018 FINDINGS: The visualized lung bases are unremarkable. The visualized portions of the heart are within normal limits. Normal liver. Normal gallbladder and extrahepatic biliary system. Normal spleen. Normal pancreas. Normal bilateral adrenal glands. Normal right kidney. Normal left kidney. Normal visualized stomach. Normal small intestine. Probable constipation. The appendix is visualized and appears normal. There is diffuse atherosclerotic calcification of the abdominal aorta, without a demonstrated aneurysm. Normal inferior vena cava. Normal retroperitoneum. Normal urinary bladder. There are prostatic calcifications. Normal abdominal wall. Normal osseous structures. CT/Abdomen/Pelvis without Cont IMPRESSION: Probable constipation. No CT evidence of acute abdominopelvic pathology. No evidence of appendicitis, acute intestinal pathology, or acute obstructive uropathy. Electronically Signed: Cal Ramirez MD at 10:23 EDT Tel , Service support ,
[2018-07-05] MEDS: proMETHazine 25 MG/ML Syringe 6.25 MG IV (09:44)
[2018-07-05] MEDS: 0.9% Normal Saline 1,000 ML 1000 ML IV (09:44)
[2018-07-05] MEDS: HYDROmorphone 1 MG/ML Syringe IV ×2 (09:46→11:07)
[2018-07-05 10:07] LABS: Absolute Lymphocyte Count 2.33 X10^3/ul (0.83-4.51); Absolute Neutrophil Count 4.6 X10^3/uL (2.0-7.7); Basophil# 0.02 X10^3/uL; Basophil% 0.3 % (0-1); Eosinophils% 1.3 % (0-5); Hematocrit 47.4 % (40-54); Hemoglobin 16.3 g/dl (13.0-16.5); Lymphocyte # 2.33 X10^3/ul (4.0); Lymphocyte % 30.9 % (19-41); Mean Corp Hgb Conc 34.4 g/gl (32-36); Mean Corpuscular Hgb 35.1 pg (27.0-32.0); Mean Corpuscular Volume 101.9 fL (80-94); Mean Platelet Vol. 9.3 fl (6.2-12.0); Monocyte# 0.53 X10^3/uL; Neutrophil # 4.55 X10^3/uL (2.7-7.7); Neutrophil % 60.2 % (47-70); Platelet Count 173 K/mm3 (150-450); RBC Distribution Width SD 52.1 fl (35.1-43.9); Red Blood Count 4.65 M/mm3 (4.6-6.2); White Blood Count 7.6 K/mm3 (4.4-11.0)
[2018-07-05 10:09] LABS: POSITIVE COUNT NO; POSITIVE DIFFERENTIAL NO; POSITIVE MORPHOLOGY NO
[2018-07-05 10:17] LABS: Anion Gap 6 (5-15); BUN 23 mg/dL (7-18); BUN/Creat Ratio 23.8 RATIO (10-20); Calcium,Total 8.9 mg/dL (8.5-10.1); Chloride 103 mmol/L (98-107); Creatinine, Serum 0.97 mg/dL (0.70-1.30); EST Glomerular Filtration Rate 82 mL/min (>60); Est Glom Filt Rate - Afr Amer 100 mL/min (>60); Estimated Creatinine Clearance 78.71 ml/min; Glucose 91 mg/dL (74-106); Sodium Level 134 mmol/L (136-145)
[2018-07-05 10:30] LABS: Bacteria 0 SEEN /hpf (None Seen); Mucous, Urine 0 SEEN /hpf (<or=2+); Red Blood Cells-Urine 0 SEEN /hpf (0-5); White Blood Cells 0 SEEN /hpf (0-5)
[2018-07-05 10:35] LABS: Color, Urine Yellow (Yellow); Glucose, Dipstick Normal (Normal); Ketone-Dipstick Negative (Negative); Leukocyte Esterase-Dipstick Negative /ul (Negative); Nitrite-Dipstick Negative (Negative); Occult Blood-Urine Negative /ul (Negative); Protein-Dipstick Negative (Negative); Specific Gravity, Urine 1.015 (1.002-1.030); Urine Bilirubin Dipstick Negative (Negative); Urine Clarity Clear (Clear); Urine Urobilinogen Normal (Normal)
[2018-07-05 10:45] LABS: Squamous Epithelial Cells - UA 0-5 SEEN /hpf (0-5)
--- NOTE | 2018-07-05 10:54 | ED.DCSUM_ITS ---
- ER Visit Summary Date of Service: 07/05/18 Chief Complaint: [Right hip and groin pain and constipation] History of Present Illness: The patient is a 67 M [presents the emergency department complaint of right hip and groin pain that he has had for at least a month. Patient is currently being seen by orthopedics and had an MRI of his hip and lumbar spine yesterday but he has no results. Patient denies any falls or injuries. Patient denies weakness in the extremities. He denies any saddle anesthesia. Patient states that he is not had a bowel movement in about 10 days. Patient has used enemas but only getting small results. Patient states that the pain at times is positional and he stands while I am in the room with him. Patient denies any trauma to his back or hip. He has not had any fevers.] Physical Examination: HEENT-PERRLA, EOMI. Cranial nerves II through XII grossly intact. TMs clear. Mucous membranes moist. No adenopathy. Cardiovascular-regular rate and rhythm without murmur or ectopy Lungs-clear to auscultation, chest wall stable without crepitus or subcu emphysema Abdomen-normoactive bowel sounds, soft, nontender, no rebound or rigidity, no peritoneal signs. Patient has some mild tenderness in the right groin on palpation however no masses or hernias palpated. Testicles are both descended and nontender. No evidence for torsion. Rectal exam-no masses palpated, no impaction Back exam-no significant tenderness over the thoracic or lumbar spine. Patient has no tenderness over the paraspinal musculature. Patient does have tenderness over the right SI joint. He does have a positive straight leg raise with pain at 30 degrees while laying supine. Deep tendon reflexes are plus 2 out of 4 bilaterally at the patella and Achilles. Patient has normal L5 extension. She has normal sensation to light touch. Extremities-intact ?4, normal range of motion, normal pulses, atraumatic]. Patient has no erythema or warmth over of the right hip. And no significant pain noted with logrolling or range of motion at the hip itself. Test Results: [CBC with differential obtained was normal. Chemistries were normal. Urinalysis was normal. CT abdomen pelvis showed evidence for constipation otherwise nothing acute.] Emergency Department Course and Treatment: [She was medicated with Dilaudid and Zofran and had no pain relief with that he was given a second dose of Dilaudid. Patient continues to complain of significant pain.] I do not feel patient has a septic hip. I suspect patient may have a lumbar radiculopathy. Treatment Plan: [Patient will be admitted for pain control and further evaluation of his back and hip pain. Disposition: [Admit] Impression: [Intractable right hip pain-suspect radiculopathy Constipation] This note was generated with [employer] dictation software. It may contain incorrect words, spelling, and punctuation that were not noted in review of the chart prior to signing ED Disposition - Plan for ED Patient: Chief Complaint: Other, Pain/Inj Referrals: Wade Padilla MD [Primary Care Provider] -
--- NOTE | 2018-07-05 11:00 | NURSING ---
DR PERERA FOR DR MITCHELL
--- NOTE | 2018-07-05 11:02 | NURSING ---
MED SURG INTRACTABLE PAIN, CONSTIPATION TREVER
[2018-07-05 11:03] VITALS: BP 164/65; PULSE 51; RESP 16; O2SAT 96
[2018-07-05 12:50] VITALS: BP 171/73; PULSE 57; RESP 18; TEMP 36.6; O2SAT 94; BMI 27.4
[2018-07-05 12:52] VITALS: BMI 27.3
--- NOTE | 2018-07-05 12:54 | HP.PCM_ITS ---
Problem List (1) Acute right hip pain Status: Acute (2) Constipation Status: Acute Qualifiers: Constipation type: drug induced constipation Qualified Code(s): K59.03 - Drug induced constipation (3) Hypertension Status: Chronic (4) BPH (benign prostatic hyperplasia) Status: Chronic Qualifiers: Lower urinary tract symptom presence: symptoms present Lower urinary tract symptom detail: urinary frequency Qualified Code(s): N40.1 - Benign prostatic hyperplasia with lower urinary tract symptoms; R35.0 - Frequency of micturition (5) Hyperlipidemia Status: Chronic Qualifiers: Hyperlipidemia type: unspecified Qualified Code(s): E78.5 - Hyperlipidemia, unspecified (6) Tobacco abuse Status: Chronic (7) LIZA (obstructive sleep apnea) Status: Chronic (8) COPD (chronic obstructive pulmonary disease) Status: Chronic Qualifiers: COPD type: unspecified COPD Qualified Code(s): J44.9 - Chronic obstructive pulmonary disease, unspecified History of Present Illness Date of Admission: 07/05/18 Chief Complaint: Right hip pain severe Patient is a 67-year-old white male with known history of hypertension, COPD, BPH, heart murmur, hyperlipidemia, tobacco use, obstructive sleep apnea on CPAP, who has been having right hip pain for over 1 month, on as needed pain medications, coming in with intractable hip pain and constipation. 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 Went to see his primary care orthopedist starting about 2 weeks ago for progressive pack pain and was tried on NSAIDs, steroid injections, and Percocet for increasing pain. Patient states that his pain is 10 out of 10 sharp stabbing with numbness and tingling assoc iated. Increased pain nothing decreased pain sometimes ice packs and hot tub. Patient is also getting relief and sometimes my Percocet and ran out of medications however yesterday. Patient however had an MRI of the back, CT scan today showed some constipation as it was a stone search for differential for the pain. We are asked to admit for further evaluation and care Past Medical History Past Medical History (Chronic Problems): Chronic Problems (Last Updated 07/05/18 @ 12:55 by Howard Hudson MD) COPD (chronic obstructive pulmonary disease) (Chronic) LIZA (obstructive sleep apnea) (Chronic) Tobacco abuse (Chronic) Hyperlipidemia (Chronic) Peripheral neuropathy (Chronic) Obesity (Chronic) Hemorrhoids (Chronic) BPH (benign prostatic hyperplasia) (Chronic) Chronic bronchitis (Chronic) Carotid artery stenosis (Chronic) Hypertension (Chronic) SOB (shortness of breath) (Chronic) Medical History: Medical History (Last Updated 07/05/18 @ 12:55 by Howard Hudson MD) Hernia K46.9 [address] had a [address] for umbilical hernia Acute sinusitis J01.90 Asthma with acute exacerbation J45.901 Cough R05 Dyspnea R06.00 Wheezing R06.2 Bronchitis J40 COPD (chronic obstructive pulmonary disease) J44.9 Chronic sinusitis J32.9 Heart murmur R01.1 Hyperlipidemia E78.5 Hypersomnia G47.10 Tobacco abuse Z72.0 Allergies Iodinated Contrast- Oral and IV Dye [Iodinated Contrast Media - IV Dye] Allergy (Verified 07/05/18 09:15) Unknown Home Medications: Ambulatory Orders Medication Instructions Recorded c-pap MISCELLANEOUS 10/10/17 Aspirin [Aspirin, Baby] 81 mg PO DAILY@0800 04/12/18 Walker [Ultra-Light Rollator] 1 ea MC BID #1 ea 04/13/18 hydrochlorothiazide 25 mg tablet 25 mg PO QDAY #90 tab 05/30/18 oxycodone-acetaminophen 5 mg-325 1 tab PO Q6H 06/30/18 mg tablet rosuvastatin 10 mg tablet 10 mg PO DAILY 06/30/18 Gabapentin [Neurontin] 300 mg PO TIDCM 07/05/18 Sennosides/Docusate Sodium 1 each PO DAILY 07/05/18 [Docusate Sodium-Sennosides Tab] Surgical History: Surgical History (Last Updated 07/05/18 @ 12:55 by Howard Hudson MD) hammer toe surgery H/O knee surgery Z98.890 Left arthroscopic x2 Right foot operation after an accident Right nostril growth removed ruptured naval Surgical History: herniorrhaphy, - - Rafael, please see above Psychiatric History: No pertinent psych hx Lives: Spouse/ Significant Other Smoking Status: Current every day smoker - Patient smokes half a pack to pack per day for 40 years Tobacco Use: Cigarettes Alcohol: Occasional Drugs: None - *Family History Maternal Family History: Family History (Last Reviewed 06/30/18 @ 14:41 by Ysabel Arellano) Father Lung cancer Uncle Cancer Grandfather Myocardial infarction Grandmother Myocardial infarction Mother Myocardial infarction, Onset Age: 90 Review of Systems Constitutional: Reports: Fatigue Eyes: Denies: Blurred vision, Cataracts, Drainage HEENT: Reports: Difficulty Swallowing - Some sore throat. Denies: Head Aches, Sinus Congestion, Sinus Drainage Cardiovascular: Denies: Chest Pain, Palpitations Respiratory: Denies: Cough, Shortness of breath at rest, Sputum production Gastrointestinal: Denies: Abdominal Pain, Nausea, Vomiting Genitourinary: Reports: Frequency - Has BPH, Hesitancy Musculoskeletal: Reports: Back Pain, Joint Tenderness - Right hip Skin: Denies: Rash, Wounds Neurological: Denies: Numbness, Tingling, Focal weakness Psychiatric: Denies: Anxiety, Depression, Homicidal Ideations, Suicidal Ideations Hematologic/ Lymphatic: Denies: Easy Bruising, Easy Bleeding VTE Information - Inpt Only VTE Present on Admission: Yes VTE Mechan Device Prophylaxis: SCD's VTE Pharm Prophylaxis ordered?: Yes Patient Problems: Active and Suspected Problems (Last Updated 07/05/18 @ 12:55 by Howard Hudson MD) Acute right hip pain (Acute) Constipation (Acute) Subjective: As above - Physical Exam General: Alert, Oriented x3, Cooperative HEENT: Atraumatic, PERRLA, EOMI Oral: No Gingival or Mucosal Lesions/ Ulcerations, Dry Mucosa Neck: Supple, No JVD, Trachea Midline Lungs: No rales, Diminished - Prolonged expiratory phase, Wheezes Cardiovascular: Regular rate, Normal S1, Normal S2, Murmur - Systolic Abdomen: Bowel Sounds Present, Non Tender, Non-Distended, Distended Extremities: No clubbing, No cyanosis, No edema, Tenderness - Patient is tender to palpation as well leg on manipulation, - - Postop surgical changes with cramping of toe Skin: No rashes, No breakdown Musculoskeletal: Tenderness - Positive back pain on tenderness on palpation and manipulation Lymphatic: No Cervical, Supraclavicular, or Inguinal Adenopathy Neurological: Cranial nerves II-XII grossly intact, Neuro grossly intact Psych/Mental Status: Normal Affect, Appropriate, Alert and oriented to time, place, person, mood and affect Vital Signs Temp Pulse Resp BP Pulse Ox 98.1 F 51 L 16 164/65 H 96 07/05/18 09:11 07/05/18 11:03 07/05/18 11:03 07/05/18 11:03 07/05/18 11:03 Oxygen Delivery Method Room Air Weight: 87.997 kg Body Mass Index (BMI) 27.0 Laboratory Tests Past 24 Hrs 07/05/18 07/05/18 07/05/18 09:57 09:57 10:25 WBC 7.6 RBC 4.65 Hgb 16.3 Hct 47.4 MCV 101.9 H MCH 35.1 H MCHC 34.4 RDW 14.0 RDW Differential 52.1 H Plt Count 173 MPV 9.3 Immature Gran % (Auto) 0.300 Neut % (Auto) 60.2 Lymph % (Auto) 30.9 [place] % (Auto) 7.0 Eos % (Auto) 1.3 Baso % (Auto) 0.3 Absolute Neuts (auto) 4.6 Absolute Lymphs (auto) 2.33 Total Counted Not Reportable Sodium 134 L Potassium 4.0 Chloride 103 Carbon Dioxide 25.0 Anion Gap 6 BUN 23 H Creatinine 0.97 Estim Creat Clear Calc 78.71 Est GFR (MDRD) Af Amer 100 Est GFR (MDRD) Non-Af 82 BUN/Creatinine Ratio 23.8 H Glucose 91 Calcium 8.9 Urine Color Yellow Urine Clarity Clear Urine pH 6.0 Ur Specific Knox 1.015 Urine Protein Negative Urine Glucose (UA) Normal Urine Ketones Negative Urine Occult Blood Negative Urine Nitrite Negative Urine Bilirubin Negative Urine Urobilinogen Normal Ur Leukocyte Esterase Negative Urine RBC 0 SEEN Urine WBC 0 SEEN Ur Squamous Epith Cells 0-5 SEEN Urine Bacteria 0 SEEN Urine Mucus 0 SEEN Assessment/Plan All Active Problems (Last Updated 07/05/18 @ 12:55 by Howard Hudson MD) dyspnea (Acute) PND (post-nasal drip) (Acute) Hand, foot and mouth disease (Acute) Sacroiliitis (Acute) Acute right hip pain (Acute) Constipation (Acute) Patient is a 67-year-old white male with known history of hypertension, COPD, BPH, heart murmur, hyperlipidemia, tobacco use, obstructive sleep apnea on CPAP, who has been having right hip pain for over 1 month, on as needed pain medications, coming in with intractable hip pain and constipation. Acute right hip pain MRI has already been done waiting for read, will consult orthopedics again PT OT patient has been ambulating with a rolling walker currently. We will give patient as needed oxycodone, morphine, L, await recommendations of PT OT and orthopedics. We will try to treat patient's pain aggressively as possible and monitor recommendations of orthopedics. Constipation Patient likely has constipation secondary to pain medications. We will give MiraLAX, Colace, Dulcolax suppository and Fleet enemas as needed. Hypertension Start home medications, as needed hydralazine for blood pressure is probably secondary to pain. BPH (benign prostatic hyperplasia) Was supposed to get a procedure however did not wish it, will start patient on Flomax, which will also help with blood pressure. Hyperlipidemia Continue statin therapy Tobacco abuse Counseled patient to stop smoking, nicotine patch LIZA (obstructive sleep apnea) CPAP at night COPD (chronic obstructive pulmonary disease) PRN DuoNeb's, patient seems to be satting okay Diet cardiac CODE STATUS full DVT heparin SCDs Disposition patient admitted to hospital for further evaluation and care and orthopedic evaluation. Unclear patient's treatment course as we need more information i.e. MRI results for further determination. Chart is dictated with certified emergency vehicle technician software. Errors may occur in dictation that may change providers meaning. This note was generated with [employer] dictation software. It may contain incorrect words, spelling, and punctuation that were not noted in checking the note before signing. Code Visit OBSV E&M: 60887 Initial observation care L3
[2018-07-05] MEDS: 0.9% Normal Saline 1,000 ML 125 ML IV ×2 (13:34→20:50)
[2018-07-05] MEDS: Heparin Injection (Vial) 5,000 UNIT/ML VIAL 5000 UNIT SC ×2 (13:34→20:54)
[2018-07-05] MEDS: Gabapentin 300 MG Capsule PO ×2 (13:34→17:51)
[2018-07-05] MEDS: Docusate Sodium 100 MG Capsule 200 MG PO (13:34)
[2018-07-05] MEDS: Morphine 2 MG/ML Syringe IV ×2 (13:38→22:24)
[2018-07-05] MEDS: oxyCODONE 5 MG Tablet 10 MG PO ×2 (15:13→20:44)
[2018-07-05] MEDS: Acetaminophen 325 MG Tablet 650 MG PO (15:13)
[2018-07-05 15:42] VITALS: BP 124/47; PULSE 55; RESP 18; TEMP 36.6; O2SAT 92
[2018-07-05] MEDS: Magnesium Citrate 300 ML PO (15:44)
[2018-07-05] MEDS: Mineral Oil 1 BOTTLE ENEMA 1 ML RECTAL (15:49)
[2018-07-05] MEDS: Tamsulosin HCl 0.4 MG Capsule PO (15:53)
[2018-07-05 20:37] VITALS: BP 134/55; PULSE 58; RESP 18; TEMP 36.6; O2SAT 93
[2018-07-05] MEDS: Famotidine 20 MG Tablet PO (20:54)
--- NOTE | 2018-07-05 20:56 | NURSING ---
[facility] CALLED TO SET UP HOME CPAP
[2018-07-05] MEDS: 0.9% NaCl Peripheral Flush Adult/Peds IV (22:25)
[2018-07-06] MEDS: Acetaminophen 325 MG Tablet 650 MG PO ×2 (00:14→20:31)
[2018-07-06] MEDS: oxyCODONE 5 MG Tablet 10 MG PO ×5 (01:22→21:32)
[2018-07-06] MEDS: 0.9% Normal Saline 1,000 ML 125 ML IV (04:01)
[2018-07-06 04:15] VITALS: BP 132/55; PULSE 59; RESP 16; TEMP 36.6; O2SAT 94
[2018-07-06] MEDS: 0.9% NaCl Peripheral Flush Adult/Peds IV ×4 (04:16→20:10)
[2018-07-06] MEDS: HYDROmorphone 1 MG/ML Syringe IV ×4 (04:16→20:10)
[2018-07-06] MEDS: Heparin Injection (Vial) 5,000 UNIT/ML VIAL 5000 UNIT SC ×2 (05:57→15:04)
[2018-07-06 07:31] LABS: Absolute Lymphocyte Count 2.19 X10^3/ul (0.83-4.51); Absolute Neutrophil Count 2.8 X10^3/uL (2.0-7.7); Basophil# 0.02 X10^3/uL; Basophil% 0.4 % (0-1); Eosinophils% 1.8 % (0-5); Hematocrit 42.6 % (40-54); Hemoglobin 13.9 g/dl (13.0-16.5); Lymphocyte # 2.19 X10^3/ul (4.0); Lymphocyte % 38.8 % (19-41); Mean Corp Hgb Conc 32.6 g/gl (32-36); Mean Corpuscular Hgb 33.9 pg (27.0-32.0); Mean Corpuscular Volume 103.9 fL (80-94); Mean Platelet Vol. 9.6 fl (6.2-12.0); Monocyte# 0.52 X10^3/uL; Monocyte% 9.2 % (0-10); Neutrophil # 2.82 X10^3/uL (2.7-7.7); Neutrophil % 49.8 % (47-70); Platelet Count 155 K/mm3 (150-450); White Blood Count 5.7 K/mm3 (4.4-11.0)
[2018-07-06 07:49] LABS: POSITIVE COUNT NO; POSITIVE DIFFERENTIAL NO; POSITIVE MORPHOLOGY NO
[2018-07-06 08:08] LABS: ALB/GLOB Ratio 0.9 RATIO (0.9-2.4); AST(SGOT) 12 U/L (15-37); Alanine Aminotransfer ALT/SGPT 23 U/L (16-61); Alkaline Phosphatase 48 U/L (45-117); Anion Gap 8 (5-15); BUN 17 mg/dL (7-18); BUN/Creat Ratio 19.7 RATIO (10-20); Calcium,Total 7.9 mg/dL (8.5-10.1); Chloride 107 mmol/L (98-107); Creatinine, Serum 0.86 mg/dL (0.70-1.30); EST Glomerular Filtration Rate 94 mL/min (>60); Est Glom Filt Rate - Afr Amer 113 mL/min (>60); Estimated Creatinine Clearance 88.77 ml/min; Globulin 3.3 g/dL (2.2-4.2); Glucose 100 mg/dL (74-106); Magnesium 2.6 mg/dL (1.6-2.6); Phosphorus 2.7 mg/dL (2.5-4.9); Potassium 3.9 mmol/L (3.5-5.1); Protein, Total 6.3 g/dL (6.4-8.2); Sodium Level 140 mmol/L (136-145)
[2018-07-06 08:15] VITALS: BP 150/62; PULSE 56; RESP 16; TEMP 36.6; O2SAT 95
[2018-07-06] MEDS: Aspirin 81 MG TAB.CHEW PO (08:40)
[2018-07-06] MEDS: Gabapentin 300 MG Capsule PO ×3 (08:40→17:46)
[2018-07-06] MEDS: hydroCHLOROthiazide 25 MG Tablet PO (09:59)
[2018-07-06] MEDS: Famotidine 20 MG Tablet PO ×2 (09:59→21:32)
[2018-07-06] MEDS: Atorvastatin Calcium 20 MG Tablet PO (10:04)
--- NOTE | 2018-07-06 11:54 | PCM.PN.HOSP ---
Patient Problems: Active and Suspected Problems (Last Updated 07/05/18 @ 12:55 by Howard Hudson MD) Acute right hip pain (Acute) Constipation (Acute) Subjective: Patient is a 67-year-old white male with known history of hypertension, COPD, BPH, heart murmur, hyperlipidemia, tobacco use, obstructive sleep apnea on CPAP, who has been having right hip pain for over 1 month, on as needed pain medications, coming in with intractable hip pain and constipation. Patient's MCV was noticed to be elevated, check to be b-12 level see if this is secondary to neuropathy due to vitamin deficiency. Will go ahead and supplement patient with 1 dose of B12, patient has had several bowel movements, still having extreme amount of pain, waiting for orthopedic opinion, trying to pull up MRI from outpatient visit. Patient has worked with PT OT having intractable pain and mobility. Vitals/I&O's: Vital Signs Temp Pulse Resp BP Pulse Ox 97.8 F 56 L 16 150/62 H 95 07/06/18 08:15 07/06/18 08:15 07/06/18 08:15 07/06/18 08:15 07/06/18 08:15 Oxygen Delivery Method Room Air Weight: 89.131 kg Body Mass Index (BMI) 27.3 Intake and Output for Last 24 Hours 07/04/18 07/05/18 07/06/18 23:59 23:59 23:59 Intake Total 275 / 275 2074 / 2074 Output Total 2500 / 2500 Balance 275 / 275 -426 / -426 General: Alert, Oriented x3, Cooperative HEENT: Atraumatic, PERRLA, EOMI, Normocephalic Neck: Supple, No JVD, Negative Carotid Bruits Lungs: Clear to auscultation, Normal air movement Cardiovascular: Regular rate, No murmurs Abdomen: Bowel Sounds Present, Soft, Non Tender, Passing Flatus Extremities: No clubbing, No cyanosis, No edema, Capillary Refill Less than 3 Seconds, Tenderness - Patient having severe pain in the right hip and back area on manipulation Skin: No rashes, No breakdown Musculoskeletal: Tenderness Lymphatic: No Cervical, Supraclavicular, or Inguinal Adenopathy Neurological: Cranial nerves II-XII grossly intact, Neuro grossly intact Psych/Mental Status: Normal Affect, Appropriate, Alert and oriented to time, place, person, mood and affect Laboratory Results 07/06/18 07:00: WBC 5.7, RBC 4.10 L, Hgb 13.9, Hct 42.6, MCV 103.9 H, MCH 33.9 H, MCHC 32.6, RDW 14.0, RDW Differential 53.0 H, Plt Count 155, MPV 9.6, Immature Gran % (Auto) 0.000, Neut % (Auto) 49.8, Lymph % (Auto) 38.8, Hinds % (Auto) 9.2, Eos % (Auto) 1.8, Baso % (Auto) 0.4, Absolute Neuts (auto) 2.8, Absolute Lymphs (auto) 2.19, Total Counted Not Reportable 07/06/18 07:00: Sodium 140, Potassium 3.9, Chloride 107, Carbon Dioxide 25.0, Anion Gap 8, BUN 17, Creatinine 0.86, Estim Creat Clear Calc 88.77, Est GFR (MDRD) Af Amer 113, Est GFR (MDRD) Non-Af 94, BUN/Creatinine Ratio 19.7, Glucose 100, Calcium 7.9 L, Phosphorus 2.7, Magnesium 2.6, Total Bilirubin 0.40, AST 12 L, ALT 23, Alkaline Phosphatase 48, Total Protein 6.3 L, Albumin 3.0 L, Globulin 3.3, Albumin/Globulin Ratio 0.9 07/06/18 07:00: Vitamin B12 Pending Current Medications Acetaminophen (Tylenol) 650 mg PO Q4H PRN PRN PRN Reason: PAIN Last Admin: 07/06/18 00:14 Dose: 650 mg Albuterol/Ipratropium (Duoneb) 3 ml INHALATION Q6H.RT PRN PRN Reason: sob Aspirin (Aspirin, Baby) 81 mg PO DAILY@0800 REPLACED BY [facility] Last Admin: 07/06/18 08:40 Dose: 81 mg Atorvastatin Calcium (Lipitor) 20 mg PO DAILY REPLACED BY [facility] Last Admin: 07/06/18 10:04 Dose: 20 mg Cyanocobalamin (Vitamin B12) 1,000 mcg IM X1 ONE Stop: 07/06/18 11:54 Docusate Sodium (Colace) 200 mg PO BID REPLACED BY [facility] Last Admin: 07/06/18 09:56 Dose: Not Given Famotidine (Pepcid) 20 mg PO BID REPLACED BY [facility] Last Admin: 07/06/18 09:59 Dose: 20 mg Gabapentin (Neurontin) 300 mg PO TIDCM REPLACED BY [facility] Last Admin: 07/06/18 08:40 Dose: 300 mg Heparin Sodium (Porcine) (Heparin Na) 5,000 unit SC Q8 REPLACED BY [facility] Last Admin: 07/06/18 05:57 Dose: 5,000 unit Hydralazine HCl (Apresoline Iv) 5 mg IV Q4H PRN PRN PRN Reason: BLOOD PRESSURE ELEVATION Hydrochlorothiazide (Hctz) 25 mg PO DAILY REPLACED BY [facility] Last Admin: 07/06/18 09:59 Dose: 25 mg Hydromorphone HCl (Dilaudid Inj) 1 mg IV Q4H PRN PRN PRN Reason: SEVERE PAIN (6-10/10) Last Admin: 07/06/18 08:40 Dose: 1 mg Sodium Chloride () 1,000 mls @ 125 mls/hr IV .Q8H REPLACED BY [facility] Stop: 07/06/18 12:43 Last Admin: 07/06/18 04:01 Dose: 125 mls/hr Magnesium Hydroxide (Milk Of Magnesia) 30 ml PO DAILY PRN PRN PRN Reason: Constipation Nicotine (Nicoderm Cq (Pbkc)) 21 mg TRANSDERM. DAILY REPLACED BY [facility] Last Admin: 07/06/18 09:59 Dose: 21 mg Ondansetron HCl (Zofran) 4 mg IV Q6H PRN PRN PRN Reason: NAUSEA Oxycodone HCl (Oxyir) 10 mg PO Q4H PRN PRN PRN Reason: SEVERE PAIN (6-10/10) Last Admin: 07/06/18 10:09 Dose: 10 mg Sodium Chloride () 5 - 30 ml IV UD PRN PRN Reason: SALINE FLUSH Last Admin: 07/06/18 08:40 Dose: 10 ml Tamsulosin HCl (Flomax) 0.4 mg PO DAILY@1730 REPLACED BY [facility] Last Admin: 07/05/18 15:53 Dose: 0.4 mg Throat Lozenges (Cepacol Sore Throat Lozenge) 2 lozenge MUCOUS MEM Q2H PRN PRN PRN Reason: SORE THROAT Medical Necessity - Tobacco Use Smoking Status: Current every day smoker Tobacco Use: Cigarettes Assessment/Plan All Active Problems (Last Updated 07/05/18 @ 12:55 by Howard Hudson MD) dyspnea (Acute) PND (post-nasal drip) (Acute) Hand, foot and mouth disease (Acute) Sacroiliitis (Acute) Acute right hip pain (Acute) Constipation (Acute) Patient is a 67-year-old white male with known history of hypertension, COPD, BPH, heart murmur, hyperlipidemia, tobacco use, obstructive sleep apnea on CPAP, who has been having right hip pain for over 1 month, on as needed pain medications, coming in with intractable hip pain and constipation. Acute right hip pain MRI has already been done according to the patient had passed the nursing staff to try to find, awaiting orthopedics consultation, continue to work with PT OT, will try to correct for low B12 levels given the patient has elevated MCV which could cause neuropathy to be worse. We will continue current pain medications. Constipation Resolved continue current regimen, constipation secondary to pain medications. Hypertension Continue home medications, as needed hydralazine increased blood pressure is probably secondary to pain. BPH (benign prostatic hyperplasia) Was supposed to get a procedure however did not wish it, on Flomax Hyperlipidemia Continue statin therapy Tobacco abuse Counseled patient to stop smoking, nicotine patch LIZA (obstructive sleep apnea) CPAP at night COPD (chronic obstructive pulmonary disease) PRN DuoNeb's, patient seems to be satting okay Diet cardiac CODE STATUS full DVT heparin SCDs Disposition orthopedics, official read of MRI, will continue current therapy. Chart is dictated with pathology secretary/transcriptionist software. Errors may occur in dictation that may change providers meaning. This note was generated with [employer] dictation software. It may contain incorrect words, spelling, and punctuation that were not noted in checking the note before signing.
--- NOTE | 2018-07-06 11:58 | PN_ITS ---
Patient Problems: Active and Suspected Problems (Last Updated 07/05/18 @ 12:55 by Howard Hudson MD) Acute right hip pain (Acute) Constipation (Acute) Subjective: Patient is a 67-year-old white male with known history of hypertension, COPD, BPH, heart murmur, hyperlipidemia, tobacco use, obstructive sleep apnea on CPAP, who has been having right hip pain for over 1 month, on as needed pain medications, coming in with intractable hip pain and constipation. Patient's MCV was noticed to be elevated, check to be b-12 level see if this is secondary to neuropathy due to vitamin deficiency. Will go ahead and supplement patient with 1 dose of B12, patient has had several bowel movements, still having extreme amount of pain, waiting for orthopedic opinion, trying to pull up MRI from outpatient visit. Patient has worked with PT OT having intractable pain and mobility. Vitals/I&O's: Vital Signs Temp Pulse Resp BP Pulse Ox 97.8 F 56 L 16 150/62 H 95 07/06/18 08:15 07/06/18 08:15 07/06/18 08:15 07/06/18 08:15 07/06/18 08:15 Oxygen Delivery Method Room Air Weight: 89.131 kg Body Mass Index (BMI) 27.3 Intake and Output for Last 24 Hours 07/04/18 07/05/18 07/06/18 23:59 23:59 23:59 Intake Total 275 / 275 2074 / 2074 Output Total 2500 / 2500 Balance 275 / 275 -426 / -426 General: Alert, Oriented x3, Cooperative HEENT: Atraumatic, PERRLA, EOMI, Normocephalic Neck: Supple, No JVD, Negative Carotid Bruits Lungs: Clear to auscultation, Normal air movement Cardiovascular: Regular rate, No murmurs Abdomen: Bowel Sounds Present, Soft, Non Tender, Passing Flatus Extremities: No clubbing, No cyanosis, No edema, Capillary Refill Less than 3 Seconds, Tenderness - Patient having severe pain in the right hip and back area on manipulation Skin: No rashes, No breakdown Musculoskeletal: Tenderness Lymphatic: No Cervical, Supraclavicular, or Inguinal Adenopathy Neurological: Cranial nerves II-XII grossly intact, Neuro grossly intact Psych/Mental Status: Normal Affect, Appropriate, Alert and oriented to time, place, person, mood and affect Laboratory Results 07/06/18 07:00: WBC 5.7, RBC 4.10 L, Hgb 13.9, Hct 42.6, MCV 103.9 H, MCH 33.9 H , MCHC 32.6, RDW 14.0, RDW Differential 53.0 H, Plt Count 155, MPV 9.6, Immature Gran % (Auto) 0.000, Neut % (Auto) 49.8, Lymph % (Auto) 38.8, [place] % (Auto) 9.2, Eos % (Auto) 1.8, Baso % (Auto) 0.4, Absolute Neuts (auto) 2.8, Absolute Lymphs (auto) 2.19, Total Counted Not Reportable 07/06/18 07:00: Sodium 140, Potassium 3.9, Chloride 107, Carbon Dioxide 25.0, Anion Gap 8, BUN 17, Creatinine 0.86, Estim Creat Clear Calc 88.77, Est GFR (MDRD) Af Amer 113, Est GFR (MDRD) Non-Af 94, BUN/Creatinine Ratio 19.7, Glucose 100, Calcium 7.9 L, Phosphorus 2.7, Magnesium 2.6, Total Bilirubin 0.40, AST 12 L, ALT 23, Alkaline Phosphatase 48, Total Protein 6.3 L, Albumin 3.0 L, Globulin 3.3, Albumin/Globulin Ratio 0.9 07/06/18 07:00: Vitamin B12 Pending Current Medications Acetaminophen (Tylenol) 650 mg PO Q4H PRN PRN PRN Reason: PAIN Last Admin: 07/06/18 00:14 Dose: 650 mg Albuterol/Ipratropium (Duoneb) 3 ml INHALATION Q6H.RT PRN PRN Reason: sob Aspirin (Aspirin, Baby) 81 mg PO DAILY@0800 [facility] Last Admin: 07/06/18 08:40 Dose: 81 mg Atorvastatin Calcium (Lipitor) 20 mg PO DAILY [facility] Last Admin: 07/06/18 10:04 Dose: 20 mg Cyanocobalamin (Vitamin B12) 1,000 mcg IM X1 ONE Stop: 07/06/18 11:54 Docusate Sodium (Colace) 200 mg PO BID [facility] Last Admin: 07/06/18 09:56 Dose: Not Given Famotidine (Pepcid) 20 mg PO BID [facility] Last Admin: 07/06/18 09:59 Dose: 20 mg Gabapentin (Neurontin) 300 mg PO TIDCM [facility] Last Admin: 07/06/18 08:40 Dose: 300 mg Heparin Sodium (Porcine) (Heparin Na) 5,000 unit SC Q8 [facility] Last Admin: 07/06/18 05:57 Dose: 5,000 unit Hydralazine HCl (Apresoline Iv) 5 mg IV Q4H PRN PRN PRN Reason: BLOOD PRESSURE ELEVATION Hydrochlorothiazide (Hctz) 25 mg PO DAILY [facility] Last Admin: 07/06/18 09:59 Dose: 25 mg Hydromorphone HCl (Dilaudid Inj) 1 mg IV Q4H PRN PRN PRN Reason: SEVERE PAIN (6-10/10) Last Admin: 07/06/18 08:40 Dose: 1 mg Sodium Chloride () 1,000 mls @ 125 mls/hr IV .Q8H [facility] Stop: 07/06/18 12:43 Last Admin: 07/06/18 04:01 Dose: 125 mls/hr Magnesium Hydroxide (Milk Of Magnesia) 30 ml PO DAILY PRN PRN PRN Reason: Constipation Nicotine (Nicoderm Cq (Pbkc)) 21 mg TRANSDERM. DAILY [facility] Last Admin: 07/06/18 09:59 Dose: 21 mg Ondansetron HCl (Zofran) 4 mg IV Q6H PRN PRN PRN Reason: NAUSEA Oxycodone HCl (Oxyir) 10 mg PO Q4H PRN PRN PRN Reason: SEVERE PAIN (6-10/10) Last Admin: 07/06/18 10:09 Dose: 10 mg Sodium Chloride () 5 - 30 ml IV UD PRN PRN Reason: SALINE FLUSH Last Admin: 07/06/18 08:40 Dose: 10 ml Tamsulosin HCl (Flomax) 0.4 mg PO DAILY@1730 [facility] Last Admin: 07/05/18 15:53 Dose: 0.4 mg Throat Lozenges (Cepacol Sore Throat Lozenge) 2 lozenge MUCOUS MEM Q2H PRN PRN PRN Reason: SORE THROAT Medical Necessity - Tobacco Use Smoking Status: Current every day smoker Tobacco Use: Cigarettes Assessment/Plan All Active Problems (Last Updated 07/05/18 @ 12:55 by Howard Hudson MD) dyspnea (Acute) PND (post-nasal drip) (Acute) Hand, foot and mouth disease (Acute) Sacroiliitis (Acute) Acute right hip pain (Acute) Constipation (Acute) Patient is a 67-year-old white male with known history of hypertension, COPD, BPH, heart murmur, hyperlipidemia, tobacco use, obstructive sleep apnea on CPAP, who has been having right hip pain for over 1 month, on as needed pain medications, coming in with intractable hip pain and constipation. Acute right hip pain MRI has already been done according to the patient had passed the nursing staff to try to find, awaiting orthopedics consultation, continue to work with PT OT, will try to correct for low B12 levels given the patient has elevated MCV which could cause neuropathy to be worse. We will continue current pain medications. Constipation Resolved continue current regimen, constipation secondary to pain med ications. Hypertension Continue home medications, as needed hydralazine increased blood pressure is probably secondary to pain. BPH (benign prostatic hyperplasia) Was supposed to get a procedure however did not wish it, on Flomax Hyperlipidemia Continue statin therapy Tobacco abuse Counseled patient to stop smoking, nicotine patch LIZA (obstructive sleep apnea) CPAP at night COPD (chronic obstructive pulmonary disease) PRN DuoNeb's, patient seems to be satting okay Diet cardiac CODE STATUS full DVT heparin SCDs Disposition orthopedics, official read of MRI, will continue current therapy. Chart is dictated with clinical staff rn software. Errors may occur in dictation that may change providers meaning. This note was generated with Nitro PDF dictation software. It may contain incorrect words, spelling, and punctuation that were not noted in checking the note before signing.
--- NOTE | 2018-07-06 14:29 | CON.PCM_ITS ---
Reason for Consult Date of Consultation: 07/06/18 History of Present Illness: The patient is a 67 year old male that has been having right lower back pain for approximately 1 month. Patient cannot remember one specific injury or cause. He did go back to work about 6 weeks ago. Patient also had been treated for dkav-abip-jxn-mouth disease he believes in March. Patient's right lower back and buttock pain have radiated to the right lateral hip, groin, with pain down to the right anterior knee. He denies any significant pain below the knee. He does have some numbness going down to the right foot and toes. Patient has been seen by his primary care physician for this. Patient has been seen by Dr. Dawson phipps. MRI of the lumbar spine in hip was performed July 04 at [facility]. Reports currently not available. Patient states pain started off a month ago as a constant mild ache. Pain has gotten more severe. He has been to the emergency room 4 times for this. Most recently he was there yesterday and was admitted for the first time. Only new complaint was increasing groin pain. Back pain, bowel bladder function have not changed over the past week or 2. patient has not been to physical therapy. He has tried medications at home including Percocet that he has been on several weeks. He developed constipation at about the same time he started using the Percocet. Patient also has been using gabapentin. He has done enemas at home. He had enema yesterday which was successful. He is still passing gas. Patient states his bladder function has not been completely normal. He feels his urinary stream has changed. Patient has not lost control of his urinary function.l he has been on oral steroids with minimal relief. Patient has had injections at the ER that were successful for pain. He denies fever chills nausea vomiting or weight loss. He does have trouble sleeping because of his night pain. He is currently laying on his side. He states his pain was 10 out of 10 yesterday. He states it is almost just as bad now. Despite this he seems to be laying comfortably speaking easily in full sentences. he has used a walker intermittently since his woop-qago-hxa-mouth disease [] Past Medical History Past Medical History (Chronic Problems): Chronic Problems (Last Updated 07/05/18 @ 12:55 by Howard Hudson MD) COPD (chronic obstructive pulmonary disease) (Chronic) LIZA (obstructive sleep apnea) (Chronic) Tobacco abuse (Chronic) Hyperlipidemia (Chronic) Peripheral neuropathy (Chronic) Obesity (Chronic) Hemorrhoids (Chronic) BPH (benign prostatic hyperplasia) (Chronic) Chronic bronchitis (Chronic) Carotid artery stenosis (Chronic) Hypertension (Chronic) SOB (shortness of breath) (Chronic) Medical History: Medical History (Last Updated 07/05/18 @ 12:55 by Howard Hudson MD) Hernia K46.9 Patient had a mass place for umbilical hernia Acute sinusitis J01.90 Asthma with acute exacerbation J45.901 Cough R05 Dyspnea R06.00 Wheezing R06.2 Bronchitis J40 COPD (chronic obstructive pulmonary disease) J44.9 Chronic sinusitis J32.9 Heart murmur R01.1 Hyperlipidemia E78.5 Hypersomnia G47.10 Tobacco abuse Z72.0 Allergies Iodinated Contrast- Oral and IV Dye [Iodinated Contrast Media - IV Dye] Allergy (Verified 07/05/18 09:15) Unknown Home Medications: Ambulatory Orders Medication Instructions Recorded c-pap MISCELLANEOUS 10/10/17 Aspirin [Aspirin, Baby] 81 mg PO DAILY@0800 04/12/18 Walker [Ultra-Light Rollator] 1 ea MC BID #1 ea 04/13/18 hydrochlorothiazide 25 mg tablet 25 mg PO QDAY #90 tab 05/30/18 oxycodone-acetaminophen 5 mg-325 1 tab PO Q6H 06/30/18 mg tablet rosuvastatin 10 mg tablet 10 mg PO DAILY 06/30/18 Gabapentin [Neurontin] 300 mg PO TIDCM 07/05/18 Sennosides/Docusate Sodium 1 each PO DAILY 07/05/18 [Docusate Sodium-Sennosides Tab] Surgical History: Surgical History (Last Updated 07/05/18 @ 12:55 by Howard Hudson MD) hammer toe surgery H/O knee surgery Z98.890 Left arthroscopic x2 Right foot operation after an accident Right nostril growth removed ruptured naval Surgical History: herniorrhaphy, - - Rafael, please see above Psychiatric History: No pertinent psych hx Lives: Spouse/ Significant Other Smoking Status: Current every day smoker Tobacco Use: Cigarettes Alcohol: Occasional Drugs: None - *Family History Maternal Family History: Family History (Last Reviewed 06/30/18 @ 14:41 by Alvivilion Arellano) Father Lung cancer Uncle Cancer Grandfather Myocardial infarction Grandmother Myocardial infarction Mother Myocardial infarction, Onset Age: 90 Patient Problems: Active and Suspected Problems (Last Updated 07/05/18 @ 12:55 by Howard Hudson MD) Acute right hip pain (Acute) Constipation (Acute) Objective: Patient seems to be laying comfortably on his left side. He has pain on palpation to lower lumbar spine and right sacroiliac joint region. He has pain about the right buttock. No significant pain directly over the right greater trochanteric bursa. No warmth or redness or abnormal masses palpated. He had normal sensation about the buttock, and diffusely about the right and left lower extremities. He has grade 5 strength throughout the legs. He has a positive straight leg raise on the right. Positive contralateral straight leg raise on the left. He had normal reflexes at the knees and ankles. 1 beat clonus bilaterally. Negative Babinski signs. No calf pain or swelling. Negative Homans sign. X-rays and CAT scans of the lumbar spine, pelvis, hips reviewed showing no obvious acute fractures or dislocations of the lumbar spine or hips. Minimal degenerative change of the hips. Moderate degenerative change of the lumbar spine. Laboratory work and vital signs reviewed - Physical Exam Vital Signs Temp Pulse Resp BP Pulse Ox 97.8 F 56 L 16 150/62 H 95 07/06/18 08:15 07/06/18 08:15 07/06/18 08:15 07/06/18 08:15 07/06/18 08:15 Oxygen Delivery Method Room Air Weight: 89.131 kg Body Mass Index (BMI) 27.3 Intake and Output for Last 24 Hours 07/04/18 07/05/18 07/06/18 23:59 23:59 23:59 Intake Total 275 / 275 2074 / 2074 Output Total 2500 / 2500 Balance 275 / 275 -426 / -426 Laboratory Tests Past 24 Hrs 07/06/18 07/06/18 07/06/18 07:00 07:00 07:00 WBC 5.7 RBC 4.10 L Hgb 13.9 Hct 42.6 MCV 103.9 H MCH 33.9 H MCHC 32.6 RDW 14.0 RDW Differential 53.0 H Plt Count 155 MPV 9.6 Immature Gran % (Auto) 0.000 Neut % (Auto) 49.8 Lymph % (Auto) 38.8 [place] % (Auto) 9.2 Eos % (Auto) 1.8 Baso % (Auto) 0.4 Absolute Neuts (auto) 2.8 Absolute Lymphs (auto) 2.19 Total Counted Not Reportable Sodium 140 Potassium 3.9 Chloride 107 Carbon Dioxide 25.0 Anion Gap 8 BUN 17 Creatinine 0.86 Estim Creat Clear Calc 88.77 Est GFR (MDRD) Af Amer 113 Est GFR (MDRD) Non-Af 94 BUN/Creatinine Ratio 19.7 Glucose 100 Calcium 7.9 L Phosphorus 2.7 Magnesium 2.6 Total Bilirubin 0.40 AST 12 L ALT 23 Alkaline Phosphatase 48 Total Protein 6.3 L Albumin 3.0 L Globulin 3.3 Albumin/Globulin Ratio 0.9 Vitamin B12 Pending Assessment/Plan All Active Problems (Last Updated 07/05/18 @ 12:55 by Howard Hduson MD) dyspnea (Acute) PND (post-nasal drip) (Acute) Hand, foot and mouth disease (Acute) Sacroiliitis (Acute) Acute right hip pain (Acute) Constipation (Acute) Low back right hip and leg pain?probable lumbar radiculopathy I will attempt to review his MRI at the office today. We will try to expedite a copy of the MRI reports making it to [facility] as soon as possible Saturday. I will make Dr. Abdul aware of the patient's hospitalization. he understands I do not do back surgery and Dr. Abdul does not do back surgery. Possible referral for pain management and/or spine surgeon consult may be recommended depending upon clinical course and MRI findings. Continue with current pain medications. Patient can be weightbearing as tolerated with assistance as needed. Walker if needed.
[2018-07-06 15:01] VITALS: BP 160/67; PULSE 69; RESP 16; TEMP 36.7; O2SAT 99
[2018-07-06] MEDS: Cyanocobalamin (B12) 1,000 MCG/ML Vial 1000 MCG IM (15:07)
[2018-07-06] MEDS: Tamsulosin HCl 0.4 MG Capsule PO (17:46)
--- NOTE | 2018-07-06 20:23 | NURSING ---
[address] Noriega who informed this RN that he was able to read MRI results that were taken in the Office on Saturday07/04/18 and that pt has a hernia disc at L2, L3 and that Dr. Noriega spoke with a Spine Surgeon at [facility] who is willing to accept this pt. and that he will need to be transferred up their tonight or when bed available. [address] Ramsey, maintenance supervisor 2nd shift Hospitalist of this new information and that she will work on his paper work. 1924 Went into room to inform pt of results that Dr. Noriega told me.. showed pt were L2, L3 were on the spine. Pt asking questions ex. how long surgery, what they do, recovery time. Informed pt that this RN does not know this information that when pt goes to [facility] that he would meet with the Dr. [place] and he would be able to answer all his questions prior to going to surgery.. Pt unsure of what to do, pt wants to speak to . 1934 Pt unsure what to do unable to reach . [address] Noriega so he could talk with pt and answer some of his questions this RN can not answer - Pt spoke with Dr. Noriega. 2019 Pt reached at this time and is talking with her.
--- NOTE | 2018-07-06 20:27 | NURSING ---
Surendra, the delivery supervisor for the transport center at [facility] ([phone]) called this RN to ask about transferring this pt. I advised him that the pt had just received this news and was trying to decide what to do. I told him I would advise him as soon as we know. He indicated they would have a bed available for this pt once the pt made his decision.
[2018-07-06 20:45] VITALS: BP 158/67; PULSE 64; RESP 18; TEMP 36.6
--- NOTE | 2018-07-06 21:00 | NURSING ---
pt and son here. pt has decided to go to [facility] as he was advised earlier by Dr. Noriega that he needs surgery for his back. Charge nurse and other primary rn aware.
--- NOTE | 2018-07-06 21:00 | PCM.DC.SUM ---
Discharge Date and Diagnosis - Problem List Patient Problems: Active and Suspected Problems (Last Updated 07/05/18 @ 12:55 by Howard Hudson MD) Acute right hip pain (Acute) Constipation (Acute) Date of Admission: 07/05/18 Date of Discharge: 07/06/18 - Primary Discharge Diagnosis Active and Suspected Problems (Last Updated 07/05/18 @ 12:55 by Howard Hudson MD) (1) Acute on chronic right hip pain and right lower extremity radiculopathy pain secondary to Large L2-L3 herniated disc (2) Abdominal discomfort secondary to Acute Constipation (3) HTN (4) HLD (5) LIZA (6) Chronic COPD (7) Tobacco use - Secondary Discharge Diagnosis Chronic Problems (Last Updated 07/05/18 @ 12:55 by Howard Hudson MD) COPD (chronic obstructive pulmonary disease) (Chronic) LIZA (obstructive sleep apnea) (Chronic) Tobacco abuse (Chronic) Hyperlipidemia (Chronic) Peripheral neuropathy (Chronic) Obesity (Chronic) Hemorrhoids (Chronic) BPH (benign prostatic hyperplasia) (Chronic) Chronic bronchitis (Chronic) Carotid artery stenosis (Chronic) Hypertension (Chronic) SOB (shortness of breath) (Chronic) Hospital Course and Treatment Dr. Noriega Orthopedic surgery Operations: None Procedures: None Summary of Care Provided: The patient is a 67 y/o M w/ PMHx: HTN, HLD, LIAZ on q HS CPAP, Chronic COPD, Tobacco use who presented to the [facility] ED on 07/05/18 with history of ongoing progressively worsening R hip and RLE radicular pain x 1 months with severe debility and as a result of recently increased narcotics acute constipation. Patient was admitted to CT, bowel regimen initiated w/ CT A/P only notable for constipation, Dr. Noriega orthopedic surgery consulted and evaluation performed w/ MRI lumbar spine performed recently in the office and upon his review noted large L2-L3 herniated disc as etiology for his ongoing pain. Dr. Noriega assisted in arranging transfer to [facility]/ Orthopedic Surgeon Dr. [place]. Patient discussed transfer recommendations with Dr. Noriega and once amenable patient was transferred with planned surgical intervention. VS: T 97.9, heart rate 64, BP 158/67, respiratory rate 18, 99% on room air. General: Alert, Oriented x3, Cooperative HEENT: Atraumatic, PERRLA, EOMI, Normocephalic Neck: Supple, No JVD, Negative Carotid Bruits Lungs: Clear to auscultation, Normal air movement Cardiovascular: Regular rate, No murmurs Abdomen: Bowel Sounds Present, Soft, Non Tender, Passing Flatus Extremities: No clubbing, No cyanosis, No edema, Capillary Refill Less than 3 Seconds, Tenderness - Patient having severe pain in the right hip and back area on manipulation Skin: No rashes, No breakdown Musculoskeletal: Tenderness Lymphatic: No Cervical, Supraclavicular, or Inguinal Adenopathy Neurological: Cranial nerves II-XII grossly intact, Neuro grossly intact Psych/Mental Status: Normal Affect, Appropriate, Alert and oriented to time, place, person, mood and affect Patient Problems: Active and Suspected Problems (Last Updated 07/05/18 @ 12:55 by Howard Hudson MD) Acute right hip pain (Acute) Constipation (Acute) - Physical Exam Vital Signs Temp Pulse Resp BP Pulse Ox 97.9 F 64 18 158/67 H 99 07/06/18 20:45 07/06/18 20:45 07/06/18 20:45 07/06/18 20:45 07/06/18 15:01 Oxygen Delivery Method Room Air Weight: 196 lb 8 oz Body Mass Index (BMI) 27.3 Intake and Output for Last 24 Hours 07/04/18 07/05/18 07/06/18 23:59 23:59 23:59 Intake Total 275 / 275 2474 / 2474 Output Total 3050 / 3050 Balance 275 / 275 -576 / -576 Laboratory Tests Past 24 Hrs 07/06/18 07/06/18 07/06/18 07:00 07:00 07:00 WBC 5.7 RBC 4.10 L Hgb 13.9 Hct 42.6 MCV 103.9 H MCH 33.9 H MCHC 32.6 RDW 14.0 RDW Differential 53.0 H Plt Count 155 MPV 9.6 Immature Gran % (Auto) 0.000 Neut % (Auto) 49.8 Lymph % (Auto) 38.8 [place] % (Auto) 9.2 Eos % (Auto) 1.8 Baso % (Auto) 0.4 Absolute Neuts (auto) 2.8 Absolute Lymphs (auto) 2.19 Total Counted Not Reportable Sodium 140 Potassium 3.9 Chloride 107 Carbon Dioxide 25.0 Anion Gap 8 BUN 17 Creatinine 0.86 Estim Creat Clear Calc 88.77 Est GFR (MDRD) Af Amer 113 Est GFR (MDRD) Non-Af 94 BUN/Creatinine Ratio 19.7 Glucose 100 Calcium 7.9 L Phosphorus 2.7 Magnesium 2.6 Total Bilirubin 0.40 AST 12 L ALT 23 Alkaline Phosphatase 48 Total Protein 6.3 L Albumin 3.0 L Globulin 3.3 Albumin/Globulin Ratio 0.9 Vitamin B12 Pending Home Medications: Medications to take at Discharge c-pap MISCELLANEOUS 10/10/17 Aspirin [Aspirin, Baby] 81 mg PO DAILY@0800 04/12/18 Walker [Ultra-Light Rollator] 1 ea MC BID #1 ea 04/13/18 hydrochlorothiazide 25 mg tablet 25 mg PO QDAY #90 tab 05/30/18 oxycodone-acetaminophen 5 mg-325 mg tablet 1 tab PO Q6H 06/30/18 rosuvastatin 10 mg tablet 10 mg PO DAILY 06/30/18 Gabapentin [Neurontin] 300 mg PO TIDCM 07/05/18 Sennosides/Docusate Sodium [Docusate Sodium-Sennosides Tab] 1 each PO DAILY 07/05/18 Primary Care Physician: Wade Padilla MD [Primary Care Provider] - Disposition: Acute care Hospital Minutes spent on discharge:: 35 Patient Condition:: Fair Medical Necessity - Tobacco Use Smoking Status: Current every day smoker Tobacco Use: Cigarettes Meaningful Use Info Meaningful Use Diagnoses (Choose all that apply): None applicable Code Visit Inpatient E&M: 33230 Disch Hosp
--- NOTE | 2018-07-06 21:04 | DS.PCM_ITS ---
Discharge Date and Diagnosis - Problem List Patient Problems: Active and Suspected Problems (Last Updated 07/05/18 @ 12:55 by Howard Hudson MD) Acute right hip pain (Acute) Constipation (Acute) Date of Admission: 07/05/18 Date of Discharge: 07/06/18 - Primary Discharge Diagnosis Active and Suspected Problems (Last Updated 07/05/18 @ 12:55 by Howard Hudson MD) (1) Acute on chronic right hip pain and right lower extremity radiculopathy pain secondary to Large L2-L3 herniated disc (2) Abdominal discomfort secondary to Acute Constipation (3) HTN (4) HLD (5) LIZA (6) Chronic COPD (7) Tobacco use - Secondary Discharge Diagnosis Chronic Problems (Last Updated 07/05/18 @ 12:55 by Howard Hudson MD) COPD (chronic obstructive pulmonary disease) (Chronic) LIZA (obstructive sleep apnea) (Chronic) Tobacco abuse (Chronic) Hyperlipidemia (Chronic) Peripheral neuropathy (Chronic) Obesity (Chronic) Hemorrhoids (Chronic) BPH (benign prostatic hyperplasia) (Chronic) Chronic bronchitis (Chronic) Carotid artery stenosis (Chronic) Hypertension (Chronic) SOB (shortness of breath) (Chronic) Hospital Course and Treatment Dr. Noriega Orthopedic surgery Operations: None Procedures: None Summary of Care Provided: The patient is a 67 y/o M w/ PMHx: HTN, HLD, LIZA on q HS CPAP, Chronic COPD, Tobacco use who presented to the [facility] ED on 07/05/18 with history of ongoing progressively worsening R hip and RLE radicular pain x 1 months with severe debility and as a result of recently increased narcotics acute constipation. Patient was admitted to DC, bowel regimen initiated w/ CT A/P only notable for constipation, Dr. Noriega orthopedic surgery consulted and evaluation performed w / MRI lumbar spine performed recently in the office and upon his review noted large L2-L3 herniated disc as etiology for his ongoing pain. Dr. Noriega assisted in arranging transfer to [facility]/ Orthopedic Surgeon Dr. Spain. Patient discussed transfer recommendations with Dr. Noriega and once amenable patient was transferred with planned surgical intervention. VS: T 97.9, heart rate 64, BP 158/67, respiratory rate 18, 99% on room air. General: Alert, Oriented x3, Cooperative HEENT: Atraumatic, PERRLA, EOMI, Normocephalic Neck: Supple, No JVD, Negative Carotid Bruits Lungs: Clear to auscultation, Normal air movement Cardiovascular: Regular rate, No murmurs Abdomen: Bowel Sounds Present, Soft, Non Tender, Passing Flatus Extremities: No clubbing, No cyanosis, No edema, Capillary Refill Less than 3 Seconds, Tenderness - Patient having severe pain in the right hip and back area on manipulation Skin: No rashes, No breakdown Musculoskeletal: Tenderness Lymphatic: No Cervical, Supraclavicular, or Inguinal Adenopathy Neurological: Cranial nerves II-XII grossly intact, Neuro grossly intact Psych/Mental Status: Normal Affect, Appropriate, Alert and oriented to time, place, person, mood and affect Patient Problems: Active and Suspected Problems (Last Updated 07/05/18 @ 12:55 by Howard Hudson MD) Acute right hip pain (Acute) Constipation (Acute) - Physical Exam Vital Signs Temp Pulse Resp BP Pulse Ox 97.9 F 64 18 158/67 H 99 07/06/18 20:45 07/06/18 20:45 07/06/18 20:45 07/06/18 20:45 07/06/18 15:01 Oxygen Delivery Method Room Air Weight: 196 lb 8 oz Body Mass Index (BMI) 27.3 Intake and Output for Last 24 Hours 07/04/18 07/05/18 07/06/18 23:59 23:59 23:59 Intake Total 275 / 275 2474 / 2474 Output Total 3050 / 3050 Balance 275 / 275 -576 / -576 Laboratory Tests Past 24 Hrs 07/06/18 07/06/18 07/06/18 07:00 07:00 07:00 WBC 5.7 RBC 4.10 L Hgb 13.9 Hct 42.6 MCV 103.9 H MCH 33.9 H MCHC 32.6 RDW 14.0 RDW Differential 53.0 H Plt Count 155 MPV 9.6 Immature Gran % (Auto) 0.000 Neut % (Auto) 49.8 Lymph % (Auto) 38.8 Pitkin % (Auto) 9.2 Eos % (Auto) 1.8 Baso % (Auto) 0.4 Absolute Neuts (auto) 2.8 Absolute Lymphs (auto) 2.19 Total Counted Not Reportable Sodium 140 Potassium 3.9 Chloride 107 Carbon Dioxide 25.0 Anion Gap 8 BUN 17 Creatinine 0.86 Estim Creat Clear Calc 88.77 Est GFR (MDRD) Af Amer 113 Est GFR (MDRD) Non-Af 94 BUN/Creatinine Ratio 19.7 Glucose 100 Calcium 7.9 L Phosphorus 2.7 Magnesium 2.6 Total Bilirubin 0.40 AST 12 L ALT 23 Alkaline Phosphatase 48 Total Protein 6.3 L Albumin 3.0 L Globulin 3.3 Albumin/Globulin Ratio 0.9 Vitamin B12 Pending Home Medications: Medications to take at Discharge c-pap MISCELLANEOUS 10/10/17 Aspirin [Aspirin, Baby] 81 mg PO DAILY@0800 04/12/18 Walker [Ultra-Light Rollator] 1 ea MC BID #1 ea 04/13/18 hydrochlorothiazide 25 mg tablet 25 mg PO QDAY #90 tab 05/30/18 oxycodone-acetaminophen 5 mg-325 mg tablet 1 tab PO Q6H 06/30/18 rosuvastatin 10 mg tablet 10 mg PO DAILY 06/30/18 Gabapentin [Neurontin] 300 mg PO TIDCM 07/05/18 Sennosides/Docusate Sodium [Docusate Sodium-Sennosides Tab] 1 each PO DAILY 07/05/18 Primary Care Physician: Wade Padilla MD [Primary Care Provider] - Disposition: Acute care Hospital Minutes spent on discharge:: 35 Patient Condition:: Fair Medical Necessity - Tobacco Use Smoking Status: Current every day smoker Tobacco Use: Cigarettes Meaningful Use Info Meaningful Use Diagnoses (Choose all that apply): None applicable Code Visit Inpatient E&M: 70731 Disch Hosp
--- NOTE | 2018-07-06 21:40 | NURSING ---
Called report to Heather Quezada [phone] for room # 830.
--- NOTE | 2018-07-06 21:45 | NURSING ---
Directed transport back to pt's room. Pt's and son were in the room.
[2018-07-07 08:35] LABS: Vitamin B12 234 pg/mL (211-911)
== END 2018-07-06 21:58 | disposition short-term general hospital (02) | DRG 552 ==
LOC: ED 09:35 → MS3 11:29
PROVIDERS: Admitting Provider Internal Medicine; Emergency Provider Emergency Medicine; Family Provider Internal Medicine; PCP Internal Medicine; Visit Provider Internal Medicine
DX: M51.16 Intervertebral disc disorders with radiculopathy, lumbar region (principal); N40.0 Benign prostatic hyperplasia without lower urinary tract symptoms; E78.5 Hyperlipidemia, unspecified; G47.33 Obstructive sleep apnea (adult) (pediatric); J44.9 Chronic obstructive pulmonary disease, unspecified; I10 Essential (primary) hypertension; Z72.0 Tobacco use; K59.00 Constipation, unspecified; G62.9 Polyneuropathy, unspecified
CPT/HCPCS: 36415; 74176; 80048; 80053; 81001; 82607; 83735; 84100; 85025; 97162; 97166; 99282; 99406; J7030; A4216; J3420

== ENCOUNTER 2018-07-10 12:27 | Inpatient (IN) | payer MEDICARE, OTHER, SELFPAY ==
[2018-07-10 12:40] VITALS: BP 129/66; PULSE 60; RESP 18; TEMP 36.5; O2SAT 93; BMI 27.3; BMI 27.4
--- NOTE | 2018-07-10 13:08 | HP.PCM.COS_ITS ---
History of Present Illness Date of Admission: 07/10/18 Chief Complaint: Microdiscectomy, L2-L3 right The patient is a 67 year old right handed male who was admitted to the rehab unit for rehabilitation, s/p Microdiscectomy, L2 - L3 right, by Dr. Spain, of [facility], with out complications, he originally was discharged home on 07/08. He was doing well postoperatively and his leg pain was essentially gone. He is admitted today for worsening pain and continued problems with constipation and bloating. He has a PMH of HTN, COPD, BPH, ILZA on CPAP and HLD. He presented to this [facility] about a week ago with worsening right hip pain and RLE radicular pain. He was then transferred on the to [place] under the care of Dr. Spain for surgical intervention of his L2-3 herniated disk which he had on 07/07. He lives with his spouse in a single story home, he was previously completely functionally independent and is admitted to the rehab unit in order to restore his previous level of functional independence. Past Medical History Past Medical History (Chronic Problems): Chronic Problems (Last Updated 07/05/18 @ 12:55 by Howard Hudson MD) COPD (chronic obstructive pulmonary disease) (Chronic) LIZA (obstructive sleep apnea) (Chronic) Tobacco abuse (Chronic) Hyperlipidemia (Chronic) Peripheral neuropathy (Chronic) Obesity (Chronic) Hemorrhoids (Chronic) BPH (benign prostatic hyperplasia) (Chronic) Chronic bronchitis (Chronic) Carotid artery stenosis (Chronic) Hypertension (Chronic) SOB (shortness of breath) (Chronic) Medical History: Medical History (Last Updated 07/05/18 @ 12:55 by Howard Hudson MD) Acute sinusitis J01.90 Asthma with acute exacerbation J45.901 Cough R05 Dyspnea R06.00 Hernia K46.9 Patient had a mass place for umbilical hernia Wheezing R06.2 Bronchitis J40 COPD (chronic obstructive pulmonary disease) J44.9 Chronic sinusitis J32.9 Heart murmur R01.1 Hyperlipidemia E78.5 Hypersomnia G47.10 Tobacco abuse Z72.0 Allergies Iodinated Contrast- Oral and IV Dye [Iodinated Contrast Media - IV Dye] Allergy (Verified 07/10/18 13:00) Unknown per pt had to lay flat for 8 hours after receiving it years agol Home Medications: Ambulatory Orders Medication Instructions Recorded Aspirin [Aspirin, Baby] 81 mg PO DAILY@0800 04/12/18 rosuvastatin 10 mg tablet 10 mg PO DAILY 06/30/18 Gabapentin [Neurontin] 300 mg PO TIDCM 07/05/18 Hydrochlorothiazide [Hctz] 25 mg PO QDAY 07/10/18 Surgical History: Surgical History (Last Updated 07/05/18 @ 12:55 by Howard Hudson MD) hammer toe surgery H/O knee surgery Z98.890 Left arthroscopic x2 Right foot operation after an accident Right nostril growth removed ruptured naval Surgical History: herniorrhaphy, - - Hammertoe, please see above Psychiatric History: No pertinent psych hx Lives: Spouse/ Significant Other Smoking Status: Heavy Smoker (>10/day) Tobacco Use: Cigarettes Alcohol: Occasional Drugs: None Review of Systems Constitutional: Denies: Chills, Fever, Weight Change HEENT: Denies: Head Aches, Sinus Congestion, Sinus Drainage Cardiovascular: Denies: Chest Pain, Palpitations Respiratory: Denies: Cough, Shortness of breath at rest, Sputum production Gastrointestinal: Denies: Abdominal Pain, Nausea, Vomiting Genitourinary: Denies: Dysuria Musculoskeletal: Denies: Joint Pain, Joint Tenderness Skin: Denies: Rash, Wounds Neurological: Denies: Numbness, Tingling, Focal weakness Psychiatric: Denies: Anxiety, Depression, Homicidal Ideations, Suicidal Ideations Hematologic/ Lymphatic: Denies: Easy Bruising, Easy Bleeding VTE Information - Inpt Only VTE Present on Admission: No VTE Mechan Device Prophylaxis: SCD's, Knee High NELSY Hose VTE Pharm Prophylaxis ordered?: Yes - Physical Exam General: Alert, Oriented x3, Cooperative HEENT: Atraumatic, PERRLA, EOMI, Normocephalic Neck: Supple, No JVD, Negative Carotid Bruits Lungs: Clear to auscultation, Normal air movement Cardiovascular: Regular rate, No murmurs Abdomen: Bowel Sounds Present, Soft, Non Tender Extremities: No edema, Capillary Refill Less than 3 Seconds Skin: No rashes, No breakdown Musculoskeletal: No Tenderness to Palpation of Joints or Extremities Neurological: Cranial nerves II-XII grossly intact Psych/Mental Status: Normal Affect, Appropriate Vital Signs Temp Pulse Resp BP Pulse Ox 97.7 F L 60 18 129/66 H 93 07/10/18 12:40 07/10/18 12:40 07/10/18 12:40 07/10/18 12:40 07/10/18 12:40 Oxygen Delivery Method Room Air Weight: 89 kg Body Mass Index (BMI) 27.3 Assessment/Plan All Active Problems (Last Updated 07/05/18 @ 12:55 by Howard Hudson MD) dyspnea (Acute) PND (post-nasal drip) (Acute) Hand, foot and mouth disease (Acute) Sacroiliitis (Acute) Acute right hip pain (Acute) Constipation (Acute) Debility status post Microdiscectomy, L2-L3 right surgery. Goal of rehab is pentecostalism of prior level of functional independence. Plan: - Physical therapy for gait and balance - Occupational Therapy for ADLs - As needed analgesics - Bowel protocol - DVT prophylaxis: Lovenox, SCDs and Nelsy Helenes - Hx of HTN - continue home medication of HCTZ - Tobacco Abuse => start on Nicoderm patch 14mg x21 days - Hx BPH => stable - continue home medication - Hx HLD - continue Lipitor 20mg at hs - LIZA - on CPAP at home - continue here on his settings - Hx of COPD - may do Duonebs if needed - Constipation - Senna 2 tabs BID, Miralax BID, and MOM - Neuropathy/pain - continue on home dose of GPN
--- NOTE | 2018-07-10 13:47 | PCM.PN.HOSP ---
Subjective: 67 yo M with ah/o HTN, COPD, BPH, LIZA on CPAP and HLD presenting for rehab after he presented to this hospital about a week ago with worsening right hip pain and RLE radicular pain. He was transferred on the to [place] under the care of Dr. Spain for surgical intervention of his L2-3 herniated disk which he had on 07/07. He is doing well postoperatively and his leg pain is essentially gone. He is having leg pain and continued problems with constipation and bloating. Vitals/I&O's: Vital Signs Temp Pulse Resp BP Pulse Ox 97.7 F L 60 18 129/66 H 93 07/10/18 12:40 07/10/18 12:40 07/10/18 12:40 07/10/18 12:40 07/10/18 12:40 Oxygen Delivery Method Room Air Weight: 196 lb 3.382 oz Body Mass Index (BMI) 27.3 General: Alert, Oriented x3, Cooperative, No apparent distress HEENT: Atraumatic, PERRLA, EOMI, Normocephalic Oral: Moist Mucosa Neck: Supple, No JVD Lungs: Clear to auscultation, Normal air movement, No rhonchi, No wheeze, No rales Cardiovascular: Regular rate, Regular Rhythm, Normal S1, Normal S2, Murmur Abdomen: Soft, Non Tender, Non-Distended, No Hepato-splenomegaly Extremities: No edema, Capillary Refill Less than 3 Seconds Skin: No rashes, No breakdown, Incision - Dressing intact Neurological: Neuro grossly intact, Sensory exam intact to light touch and pain Psych/Mental Status: Normal Affect, Appropriate Current Medications Aspirin (Aspirin, Baby) 81 mg PO DAILY@0800 [facility] Gabapentin (Neurontin) 300 mg PO TIDCM [facility] Hydrochlorothiazide (Hctz) 25 mg PO QDAY [facility] Non-Formulary Medication (Rosuvastatin Calcium [Rosuvastatin Calcium]) 10 mg PO DAILY [facility] Medical Necessity - Tobacco Use Smoking Status: Heavy Smoker (>10/day) Tobacco Use: Cigarettes Assessment/Plan All Active Problems (Last Updated 07/05/18 @ 12:55 by Howard Hudson MD) dyspnea (Acute) PND (post-nasal drip) (Acute) Hand, foot and mouth disease (Acute) Sacroiliitis (Acute) Acute right hip pain (Acute) Constipation (Acute) 1. S/p Surgical intervention for L2-3 herniated disk/constipation - c./w pain medications PRN, try to wean Juliet given his constipation - Miralax and colace BID, can add an enema if needed - PT/OT 2. HTN/HLD - stable at the moment SBP 129 - C/w home medications 3. BPH - stable - C/w home medications 4. LIZA - he wear CPAP at home and can continue here 5. COPD - stable at the moment no wheezing on exam and he denies SOB - Can do duonebs if needed DVT: Ambulation Code Visit Inpatient E&M: 32739 Subs Hosp L3
--- NOTE | 2018-07-10 13:52 | PN_ITS ---
Subjective: 67 yo M with ah/o HTN, COPD, BPH, LIZA on CPAP and HLD presenting for rehab after he presented to this hospital about a week ago with worsening right hip pain and RLE radicular pain. He was transferred on the to [place] under the care of Dr. Spain for surgical intervention of his L2-3 herniated disk which he had on 07/07. He is doing well postoperatively and his leg pain is essentially gone. He is having leg pain and continued problems with constipation and bloating. Vitals/I&O's: Vital Signs Temp Pulse Resp BP Pulse Ox 97.7 F L 60 18 129/66 H 93 07/10/18 12:40 07/10/18 12:40 07/10/18 12:40 07/10/18 12:40 07/10/18 12:40 Oxygen Delivery Method Room Air Weight: 196 lb 3.382 oz Body Mass Index (BMI) 27.3 General: Alert, Oriented x3, Cooperative, No apparent distress HEENT: Atraumatic, PERRLA, EOMI, Normocephalic Oral: Moist Mucosa Neck: Supple, No JVD Lungs: Clear to auscultation, Normal air movement, No rhonchi, No wheeze, No rales Cardiovascular: Regular rate, Regular Rhythm, Normal S1, Normal S2, Murmur Abdomen: Soft, Non Tender, Non-Distended, No Hepato-splenomegaly Extremities: No edema, Capillary Refill Less than 3 Seconds Skin: No rashes, No breakdown, Incision - Dressing intact Neurological: Neuro grossly intact, Sensory exam intact to light touch and pain Psych/Mental Status: Normal Affect, Appropriate Current Medications Aspirin (Aspirin, Baby) 81 mg PO DAILY@0800 [facility] Gabapentin (Neurontin) 300 mg PO TIDCM [facility] Hydrochlorothiazide (Hctz) 25 mg PO QDAY [facility] Non-Formulary Medication (Rosuvastatin Calcium [Rosuvastatin Calcium]) 10 mg PO DAILY [facility] Medical Necessity - Tobacco Use Smoking Status: Heavy Smoker (>10/day) Tobacco Use: Cigarettes Assessment/Plan All Active Problems (Last Updated 07/05/18 @ 12:55 by Howard Hudson MD) dyspnea (Acute) PND (post-nasal drip) (Acute) Hand, foot and mouth disease (Acute) Sacroiliitis (Acute) Acute right hip pain (Acute) Constipation (Acute) 1. S/p Surgical intervention for L2-3 herniated disk/constipation - c./w pain medications PRN, try to wean Juliet given his constipation - Miralax and colace BID, can add an enema if needed - PT/OT 2. HTN/HLD - stable at the moment SBP 129 - C/w home medications 3. BPH - stable - C/w home medications 4. LIZA - he wear CPAP at home and can continue here 5. COPD - stable at the moment no wheezing on exam and he denies SOB - Can do duonebs if needed DVT: Ambulation Code Visit Inpatient E&M: 00080 Subs Hosp L3
[2018-07-10] MEDS: oxyCODONE 5 MG Tablet PO ×3 (14:17→23:29)
[2018-07-10] MEDS: NYSTATIN 500,000 UNIT/5 ML UDC 500000 UNIT PO ×3 (14:51→20:20)
[2018-07-10] MEDS: Magnesium Hydroxide 30 ML UDC PO (14:51)
[2018-07-10] MEDS: Aspirin 81 MG TAB.CHEW PO (14:52)
[2018-07-10] MEDS: Gabapentin 300 MG Capsule PO ×2 (14:52→21:38)
[2018-07-10] MEDS: hydroCHLOROthiazide 25 MG Tablet PO (14:53)
[2018-07-10] MEDS: Senna/Docusate Sodium 1 Tablet 2 TABLET PO ×2 (14:54→20:22)
[2018-07-10] MEDS: Atorvastatin Calcium 20 MG Tablet PO (20:19)
[2018-07-10] MEDS: Polyethylene Glycol 3350 17 GM PACKET PO (20:20)
[2018-07-10 20:26] VITALS: BP 148/69; PULSE 57; RESP 18; TEMP 36.4; O2SAT 97
--- NOTE | 2018-07-10 22:46 | NURSING ---
Reviewed and agree with LPNs fims and handoff
[2018-07-11 05:12] LABS: Absolute Lymphocyte Count 1.95 X10^3/ul (0.83-4.51); Absolute Neutrophil Count 3.9 X10^3/uL (2.0-7.7); Basophil# 0.02 X10^3/uL; Basophil% 0.3 % (0-1); Eosinophils% 1.5 % (0-5); Hematocrit 41.9 % (40-54); Hemoglobin 14.3 g/dl (13.0-16.5); Lymphocyte # 1.95 X10^3/ul (4.0); Mean Corp Hgb Conc 34.1 g/gl (32-36); Mean Corpuscular Hgb 34.7 pg (27.0-32.0); Mean Corpuscular Volume 101.7 fL (80-94); Mean Platelet Vol. 9.5 fl (6.2-12.0); Monocyte# 0.76 X10^3/uL; Monocyte% 11.3 % (0-10); Neutrophil # 3.88 X10^3/uL (2.7-7.7); Neutrophil % 57.6 % (47-70); POSITIVE COUNT NO; POSITIVE DIFFERENTIAL NO; POSITIVE MORPHOLOGY NO; Platelet Count 157 K/mm3 (150-450); RBC Distribution Width CV 13.5 % (11.6-14.6); RBC Distribution Width SD 49.4 fl (35.1-43.9); Red Blood Count 4.12 M/mm3 (4.6-6.2); White Blood Count 6.7 K/mm3 (4.4-11.0)
[2018-07-11 05:41] LABS: ALB/GLOB Ratio 0.8 RATIO (0.9-2.4); AST(SGOT) 13 U/L (15-37); Alanine Aminotransfer ALT/SGPT 22 U/L (16-61); Albumin, Serum 2.8 g/dL (3.2-5.0); Alkaline Phosphatase 47 U/L (45-117); Anion Gap 7 (5-15); BUN 16 mg/dL (7-18); BUN/Creat Ratio 20.5 RATIO (10-20); Calcium,Total 8.4 mg/dL (8.5-10.1); Chloride 101 mmol/L (98-107); Creatinine, Serum 0.78 mg/dL (0.70-1.30); EST Glomerular Filtration Rate 105 mL/min (>60); Est Glom Filt Rate - Afr Amer 127 mL/min (>60); Estimated Creatinine Clearance 76.35 ml/min; Globulin 3.7 g/dL (2.2-4.2); Glucose 105 mg/dL (74-106); Phosphorus 3.6 mg/dL (2.5-4.9); Potassium 4.1 mmol/L (3.5-5.1); Protein, Total 6.5 g/dL (6.4-8.2); Sodium Level 135 mmol/L (136-145)
[2018-07-11] MEDS: oxyCODONE 5 MG Tablet PO ×3 (05:54→20:04)
[2018-07-11 07:46] VITALS: BP 132/70; PULSE 55; RESP 16; TEMP 36.6; O2SAT 95
[2018-07-11] MEDS: Polyethylene Glycol 3350 17 GM PACKET PO ×2 (09:45→20:04)
[2018-07-11] MEDS: Senna/Docusate Sodium 1 Tablet 2 TABLET PO ×2 (09:45→20:04)
[2018-07-11] MEDS: Gabapentin 300 MG Capsule PO ×3 (09:45→17:08)
[2018-07-11] MEDS: hydroCHLOROthiazide 25 MG Tablet PO (09:45)
[2018-07-11] MEDS: Aspirin 81 MG TAB.CHEW PO (09:45)
[2018-07-11] MEDS: NYSTATIN 500,000 UNIT/5 ML UDC 500000 UNIT PO ×4 (09:47→20:04)
--- NOTE | 2018-07-11 10:42 | NURSING ---
Vania from Dr. Loza's office tel. stated we can start pt on Lovenox per our doctor's judgment, pt has appt with Dr. Loza on 07/28/2018 at 1300 and doctor wants to take out ashleigh then.
[2018-07-11] MEDS: fentaNYL 25 MCG Patch TRANSDERM. (11:23)
[2018-07-11 11:45] VITALS: O2SAT 98
--- NOTE | 2018-07-11 14:57 | REHABEVAL_ITS ---
Admission Information Status Changes from Prescreening?: No changes Identified Actual Problem List:: Pain, ALteration in Cmfrt, Mobility Impaired, Self Care Deficit, Ineffect.D/C Plan r/t Psy Potential Problem List:: DVT, Bleeding, Infection, UTI, Aspiration, Falls, Skin Integrity, Depression Risk of Complications DVT: LMWH, NELSY Hose, Sequential Compression Device Bleeding: Monitor Lab Values, Nursing to Teach Precautions for anti-coagulation therapy., Wound, if applicable, to be assessed every shift., Stroke patients assessed for lethargy or change in status. Infection: Clinical Staff to Monitor for S/S of infection:, S/S of infection include fever, redness, warmth, etc. Urinary Tract Infection: Monitor for frequency, burning, discomfort, or incontinence., Nursing will obtain urine sample for urinalysis and C&S when ordered. Aspiration: Clinical staff will monitor for coughing, drooling, congestion., Speech will evaluate swallowing and dsyphasia., Nursing will monitor patient swallowing during meals. Falls: Patient will be evaluated for Fall Precautions, Patient will be placed on Fall Precautions as indicated per protocol. Skin Breakdown: Nursing will assess skin daily using assessment tool., Nursing will place on Skin Breakdown Precautions as indicated. Pain: Clinical staff will assess patient's pain level per protocol., Medications will be given, if needed, and the pain level reassessed., Other methods: Massage, distraction, decrease stimulus, etc. used PRN. Plan of Care Patient requires physician specializing in physical medicine and rehab oversight to provide close medical supervision of rehab issues including: Pain Management, Sleep Problems, Bowel and Bladder, Medical and co-morbidity Management, DVT prophylaxis, Rehabilitation Leadership, Coordination of treatment team Patient needs Physical Therapy: For a minimum of 1 hour, At least 5 out of 7 days Patient needs Physical Therapy to improve:: Mobility, Mobility, Mobility, Strengthening, Transfers, Stretching, ROM, Endurance, Stairs, Gait, Balance Patient needs Occupational Therapy: For a minimum of 1 hour, At least 5 out of 7 days Patient needs Occupational Therapy to improve ADL's incl.: Eating, Grooming, Bathing, Dressing, Toileting, Toilet transfers, Community Reintegration, Higher functioning activities, Household tasks, Adaptive Equipment, Splinting, Other activities as determined Patient requires 24/ Rehabilitation Nursing for: Pain Issues, Identifying and preventing risk factors, Monitoring and reporting current medical conditions, Assisting with ambulation, transfer, and all ADL's, Teaching patients about disease process and medications, Family teaching, Providing safe environment, Bowel and Bladder Issues, Skin integrity, Medication Management Patient needs Director Of Academic Support/ Case Management for: Discharge Planning, Arranging Home Equipment or Services, Family Interventions Patient needs Dietary and Nutrition Services for: Adequate Nutrition, Nutritional Supplements, Nutritional Education Goals Patient will remain: free from falls, or injury at time of discharge. Patient will perform bed mobility at: MOD I level of assist. Patient will complete transfers from bed to chair at: MOD I level of assist. Patient will ambulate: 100 feet, with MOD I assist, with LRD Patient will complete upper body dressing at: MOD I level of assist. Patient will complete lower body dressing at: MOD I level of assist. Patient will complete toileting at: MOD I level of assist. Patient will perform bathing at: MOD I level of assist. Patient will complete grooming at: MOD I level of assist. Patient will complete home management skills at: MOD I level of assist. Patient will achieve: 12 stairs, at MOD I assist Patient will have pain level of: of 3 or less Patient's skin will: remain intact, free from infection. Patient will receive: adequate nutrition. Discharge Planning Pt Prognosis for Sig. Practical Improv. w/in Reasonable Time: Good Anticipated D/C Destination: Home with Outpt Therapy Was Preadmission Assessment Accurate?: Yes
--- NOTE | 2018-07-11 16:13 | CASEMGMT ---
Reviewed and approved social work student attached documentation. IKE HallW, PRIVATE HOUSEHOLD WORKER
[2018-07-11] MEDS: Magnesium Hydroxide 30 ML UDC PO (17:08)
--- NOTE | 2018-07-11 17:14 | CHAPLAIN ---
Type of Pastoral Visit _x__ Initial Visit ___ Follow-up Visit ___ On-call Visit ___ General Patient Visit ___ Spiritual Assessment ___ Family Conference ___ Bereavement ___ Rapid Response ___ Code Blue ___ Other (describe below) Pastoral Care Referral From _x__ Patient ___ Family ___ Nurse ___ Physician ___ News Broadcaster ___ Outsole Rounder ___ Other (describe below) Sacrament/Intervention _x__ Active listening ___ Anointing ___ Baptist ___ Bereavement ___ Communion _x__ Lawanda exploration ___ _x__ Life review _x__ Prayer ___ Reconciliation ___ Sacrament of Sick ___ Supportive presence ___ Wedding ___ Other (describe below) Pastoral Comments patient is talkative and would like to have future visits from photographic reproduction technician; pt sees his lawanda as very important in life; pt shares his life story and recent illness;
[2018-07-11] MEDS: Atorvastatin Calcium 20 MG Tablet PO (20:04)
[2018-07-11] MEDS: Calcium Carbonate 500 MG Tablet PO (20:05)
[2018-07-11 20:14] VITALS: BP 118/61; PULSE 71; RESP 16; TEMP 36.8; O2SAT 95
--- NOTE | 2018-07-12 05:30 | NURSING ---
Reviewed and agree with LPNs fims and handoff
[2018-07-12 06:55] VITALS: O2SAT 95
[2018-07-12] MEDS: hydroCHLOROthiazide 25 MG Tablet PO (08:56)
[2018-07-12] MEDS: Gabapentin 300 MG Capsule PO ×3 (08:56→17:28)
[2018-07-12] MEDS: Polyethylene Glycol 3350 17 GM PACKET PO (08:56)
[2018-07-12] MEDS: Senna/Docusate Sodium 1 Tablet 2 TABLET PO (08:56)
[2018-07-12] MEDS: Aspirin 81 MG TAB.CHEW PO (08:56)
[2018-07-12] MEDS: Enoxaparin 40 MG/0.4 ML Syringe SC (08:56)
[2018-07-12] MEDS: NYSTATIN 500,000 UNIT/5 ML UDC 500000 UNIT PO ×4 (08:57→22:51)
[2018-07-12 10:00] VITALS: BP 132/66; PULSE 73; RESP 16; TEMP 36.4; O2SAT 97
--- NOTE | 2018-07-12 11:27 | VDLE_ITS ---
Reason For Study: LE Pain RIGHT LEFT GSV is normal. GSV is normal. CFV is compressible, spontaneous, phasic, CFV is compressible, spontaneous, phasic, competent and demonstrates normal competent, and demonstrates normal augmentation. augmentation. FV is compressible, spontaneous, phasic, FV is compressible, spontaneous, phasic, competent and demonstrates normal competent and demonstrates normal augmentation. augmentation. POP V is compressible, spontaneous, phasic, POP V is compressible, spontaneous, phasic, competent and demonstrates normal competent and demonstrates normal augmentation. augmentation. T/P Trunk is compressible. T/P Trunk is compressible. PTV is compressible. PTV is compressible. RT PerV is compressible. LT PerV is compressible. Procedure Exam performed in department. A preliminary report was called and/or faxed to RU Nurse. <> Interpretation Summary No evidence for acute deep venous thrombosis bilateral lower extremities with patent and compressible bilateral great saphenous veins. Ordering Physician: Cruzito Montoya Referring Physician: Wade Padilla Performed By: Nora Cole RVT and Student
--- NOTE | 2018-07-12 11:51 | PCM.PN.HOSP ---
Patient Problems: Active and Suspected Problems (Last Updated 07/05/18 @ 12:55 by Howard Hudson MD) Chest pain (Acute) Subjective: had some transient midsternal chest tightness yesterday, associated with diaphoresis. Also, developed Left calf tenderness (had a DVT years ago in same leg with similar symptoms. Vitals/I&O's: Vital Signs Temp Pulse Resp BP Pulse Ox 36.4 C L 73 16 132/66 H 97 07/12/18 10:00 07/12/18 10:00 07/12/18 10:00 07/12/18 10:00 07/12/18 10:00 Oxygen Delivery Method Room Air Weight: 89 kg Body Mass Index (BMI) 27.3 Intake and Output for Last 24 Hours 07/10/18 07/11/18 07/12/18 23:59 23:59 23:59 Intake Total 480 / 480 240 / 240 Output Total 300 / 300 500 / 500 Balance -300 / -300 -20 / -20 240 / 240 General: Alert, Cooperative, No apparent distress HEENT: Atraumatic, Normocephalic Oral: Moist Mucosa, No Gingival or Mucosal Lesions/ Ulcerations Neck: No Nodes, Thyroid Normal Size and Texture Lungs: Clear to auscultation, Normal air movement, No rhonchi, No wheeze Cardiovascular: Regular rate, Regular Rhythm, Normal S1, Normal S2, No murmurs Abdomen: Bowel Sounds Present, Soft, Non Tender, Non-Distended, No Hepato-splenomegaly Extremities: No edema, - - left calf tenderness, without palpable cords Skin: No rashes, No breakdown Psych/Mental Status: Normal Affect, Appropriate Current Medications Aspirin (Aspirin, Baby) 81 mg PO DAILY@0800 [facility] Last Admin: 07/12/18 08:56 Dose: 81 mg Atorvastatin Calcium (Lipitor) 20 mg PO QHS [facility] Last Admin: 07/11/18 20:04 Dose: 20 mg Bisacodyl (Dulcolax) 10 mg RECTAL .PRN X 1 PRN PRN Reason: Constipation Calcium Carbonate (Tums) 500 mg PO Q4H PRN PRN PRN Reason: INDIGESTION Last Admin: 07/11/18 20:05 Dose: 500 mg Enoxaparin Sodium (Lovenox) 40 mg SC DAILY@0600 [facility] Fentanyl (Duragesic Patch) 25 mcg TRANSDERM. Q72H [facility] Last Admin: 07/11/18 11:23 Dose: 25 mcg Gabapentin (Neurontin) 300 mg PO TIDCM [facility] Last Admin: 07/12/18 11:28 Dose: 300 mg Hydrochlorothiazide (Hctz) 25 mg PO DAILY [facility] Last Admin: 07/12/18 08:56 Dose: 25 mg Magnesium Hydroxide (Milk Of Magnesia) 30 ml PO .PRN X 1 PRN PRN Reason: Constipation Last Admin: 07/11/18 17:08 Dose: 30 ml Nicotine (Nicoderm Cq (Pbkc)) 14 mg TRANSDERM. DAILY [facility] Last Admin: 07/12/18 08:57 Dose: 14 mg Nystatin (Nystatin) 500,000 unit PO 4X/DAY [facility] Last Admin: 07/12/18 08:57 Dose: 500,000 unit Oxycodone HCl (Oxyir) 5 - 10 mg PO Q4H PRN PRN PRN Reason: PAIN Last Admin: 07/11/18 20:04 Dose: 10 mg Polyethylene Glycol (Miralax) 17 gm PO BID [facility] Last Admin: 07/12/18 08:56 Dose: 17 gm Senna/Docusate Sodium (Senokot-S, Shelia-Colace) 2 tablet PO BID [facility] Last Admin: 07/12/18 08:56 Dose: 2 tablet Medical Necessity - Tobacco Use Smoking Status: Heavy Smoker (>10/day) Tobacco Use: Cigarettes Assessment/Plan All Active Problems (Last Updated 07/05/18 @ 12:55 by Howard Hudson MD) dyspnea (Acute) PND (post-nasal drip) (Acute) Hand, foot and mouth disease (Acute) Sacroiliitis (Acute) Acute right hip pain (Acute) Constipation (Acute) Chest pain (Acute) 1. chest pain: concern for PE check CTA chest 2. left calf tenderness duplex ordered 3. s/p L2-3 microdiscectomy continue with rehab services follow up with Dr. Loza as outpt 4. DVT proph: LMWH, however, if + VTE, then this will be discontinued in lieu of a NOAC Code Visit Inpatient E&M: 77194 Subs Hosp L2
--- NOTE | 2018-07-12 11:56 | PN_ITS ---
Patient Problems: Active and Suspected Problems (Last Updated 07/05/18 @ 12:55 by Howard Hudson MD) Chest pain (Acute) Subjective: had some transient midsternal chest tightness yesterday, associated with diaphoresis. Also, developed Left calf tenderness (had a DVT years ago in same leg with similar symptoms. Vitals/I&O's: Vital Signs Temp Pulse Resp BP Pulse Ox 36.4 C L 73 16 132/66 H 97 07/12/18 10:00 07/12/18 10:00 07/12/18 10:00 07/12/18 10:00 07/12/18 10:00 Oxygen Delivery Method Room Air Weight: 89 kg Body Mass Index (BMI) 27.3 Intake and Output for Last 24 Hours 07/10/18 07/11/18 07/12/18 23:59 23:59 23:59 Intake Total 480 / 480 240 / 240 Output Total 300 / 300 500 / 500 Balance -300 / -300 -20 / -20 240 / 240 General: Alert, Cooperative, No apparent distress HEENT: Atraumatic, Normocephalic Oral: Moist Mucosa, No Gingival or Mucosal Lesions/ Ulcerations Neck: No Nodes, Thyroid Normal Size and Texture Lungs: Clear to auscultation, Normal air movement, No rhonchi, No wheeze Cardiovascular: Regular rate, Regular Rhythm, Normal S1, Normal S2, No murmurs Abdomen: Bowel Sounds Present, Soft, Non Tender, Non-Distended, No Hepato- splenomegaly Extremities: No edema, - - left calf tenderness, without palpable cords Skin: No rashes, No breakdown Psych/Mental Status: Normal Affect, Appropriate Current Medications Aspirin (Aspirin, Baby) 81 mg PO DAILY@0800 [facility] Last Admin: 07/12/18 08:56 Dose: 81 mg Atorvastatin Calcium (Lipitor) 20 mg PO QHS [facility] Last Admin: 07/11/18 20:04 Dose: 20 mg Bisacodyl (Dulcolax) 10 mg RECTAL .PRN X 1 PRN PRN Reason: Constipation Calcium Carbonate (Tums) 500 mg PO Q4H PRN PRN PRN Reason: INDIGESTION Last Admin: 07/11/18 20:05 Dose: 500 mg Enoxaparin Sodium (Lovenox) 40 mg SC DAILY@0600 [facility] Fentanyl (Duragesic Patch) 25 mcg TRANSDERM. Q72H [facility] Last Admin: 07/11/18 11:23 Dose: 25 mcg Gabapentin (Neurontin) 300 mg PO TIDCM [facility] Last Admin: 07/12/18 11:28 Dose: 300 mg Hydrochlorothiazide (Hctz) 25 mg PO DAILY [facility] Last Admin: 07/12/18 08:56 Dose: 25 mg Magnesium Hydroxide (Milk Of Magnesia) 30 ml PO .PRN X 1 PRN PRN Reason: Constipation Last Admin: 07/11/18 17:08 Dose: 30 ml Nicotine (Nicoderm Cq (Pbkc)) 14 mg TRANSDERM. DAILY [facility] Last Admin: 07/12/18 08:57 Dose: 14 mg Nystatin (Nystatin) 500,000 unit PO 4X/DAY [facility] Last Admin: 07/12/18 08:57 Dose: 500,000 unit Oxycodone HCl (Oxyir) 5 - 10 mg PO Q4H PRN PRN PRN Reason: PAIN Last Admin: 07/11/18 20:04 Dose: 10 mg Polyethylene Glycol (Miralax) 17 gm PO BID [facility] Last Admin: 07/12/18 08:56 Dose: 17 gm Senna/Docusate Sodium (Senokot-S, Shelia-Colace) 2 tablet PO BID [facility] Last Admin: 07/12/18 08:56 Dose: 2 tablet Medical Necessity - Tobacco Use Smoking Status: Heavy Smoker (>10/day) Tobacco Use: Cigarettes Assessment/Plan All Active Problems (Last Updated 07/05/18 @ 12:55 by Howard Hudson MD) dyspnea (Acute) PND (post-nasal drip) (Acute) Hand, foot and mouth disease (Acute) Sacroiliitis (Acute) Acute right hip pain (Acute) Constipation (Acute) Chest pain (Acute) 1. chest pain: * concern for PE * check CTA chest 2. left calf tenderness * duplex ordered 3. s/p L2-3 microdiscectomy * continue with rehab services * follow up with Dr. Loza as outpt 4. DVT proph: * LMWH, however, if + VTE, then this will be discontinued in lieu of a NOAC Code Visit Inpatient E&M: 22486 Subs Hosp L2
[2018-07-12] MEDS: oxyCODONE 5 MG Tablet PO ×3 (12:10→22:57)
--- NOTE | 2018-07-12 13:30 | NURSING ---
Dr. Montoya ordered CT of chest with contrast. Patient allergy is listed as contrast. He is unaware of the reaction, per patient he had a facet spinal block about 15 years ago and his surgeon told him to list it as an allergy. The hospital no longer assists to contact. I spoke with Millicent in [place], she pulled up a report that patient had a CT of chest with contrast to r/o PEs on 10/11/2007 as an out patient and no allergic reaction documentation was noted. I spoke with patient about his CT of chest in 2007, he does not recall a reaction. Dr. Montoya aware of this. new order for contrast allergy steroid preparation protocol for the 13-hour prep. patient is agreeable. patient is not in acute distress. Patient will have CT scan done at 0700 on 07/13/2018.
[2018-07-12] MEDS: Calcium Carbonate 500 MG Tablet PO ×2 (14:29→23:09)
[2018-07-12] MEDS: predniSONE 20 MG Tablet 50 MG PO (18:09)
[2018-07-12 19:00] VITALS: BP 142/68; PULSE 62; RESP 15; TEMP 36.9; O2SAT 96
[2018-07-12 22:00] VITALS: PULSE 62; RESP 15; O2SAT 96
[2018-07-12] MEDS: Atorvastatin Calcium 20 MG Tablet PO (22:51)
[2018-07-13] MEDS: predniSONE 20 MG Tablet 50 MG PO ×2 (01:12→06:03)
[2018-07-13] MEDS: Enoxaparin 40 MG/0.4 ML Syringe SC (06:04)
[2018-07-13] MEDS: 0.9% NaCl Peripheral Flush Adult/Peds IV (06:05)
--- NOTE | 2018-07-13 07:00 | CT_ITS ---
STUDY: CTA CHEST REASON FOR EXAM: Male, 67 years old. Acute substernal chest pain RADIATION DOSAGE (If Supplied By Facility): CTDIvol = ( 13.80 ) mGy, DLP = ( 518.05 ) mGycm TECHNIQUE: The examination was performed with the intravenous administration of 75ML ml of Isovue 370 contrast material. Post-processing of the angiographic images was performed, with multiplanar reformation and 3D reconstruction. Individualized dose optimization techniques were used for this CT. COMPARISON: None. FINDINGS: Normal enhancement of the main pulmonary artery and right and left pulmonary arteries. Normal enhancement of the bilateral peripheral pulmonary arteries. There is no demonstrated pulmonary embolism. Normal thoracic aorta and visualized great vessels. There is no demonstrated aortic dissection. Normal heart and pericardium. Normal mediastinum. Normal hilar regions. There is peribronchial thickening. The lungs are well expanded. Normal pulmonary parenchyma. Normal pleura. Normal chest wall structures. There are degenerative changes of thoracic spine. Normal visualized upper abdomen. CT/CTA Chest W/WO Contrast IMPRESSION: No demonstrated PE, or thoracic aortic aneurysm or dissection Chronic interstitial changes with evidence of chronic bronchitis but no superimposed acute pulmonary process Degenerative bony changes Electronically Signed: Papa Pearson MD at 8:34 EST , Service support ,
[2018-07-13 07:12] VITALS: BP 125/75; PULSE 70; RESP 16; TEMP 36.8; O2SAT 94
[2018-07-13 07:50] VITALS: O2SAT 94
--- NOTE | 2018-07-13 07:54 | NURSING ---
patient was taken down for ct scan by life science research assistant at 0730 instead of 0700 d/t request from CT d/t there was a generator check. patient returned at this time to unit. no adverse reaction noted from IV contrast. patient is sitting up eating breakfast and fluids encouraged.
[2018-07-13] MEDS: Aspirin 81 MG TAB.CHEW PO (08:45)
[2018-07-13] MEDS: NYSTATIN 500,000 UNIT/5 ML UDC 500000 UNIT PO ×4 (08:45→20:48)
[2018-07-13] MEDS: Gabapentin 300 MG Capsule PO ×3 (08:45→17:07)
[2018-07-13] MEDS: hydroCHLOROthiazide 25 MG Tablet PO (08:45)
[2018-07-13] MEDS: oxyCODONE 5 MG Tablet PO ×2 (08:47→20:57)
--- NOTE | 2018-07-13 12:43 | PCA ---
pt. ambulated over 150 ft. in halls with minimal assistance.
--- NOTE | 2018-07-13 12:53 | PCM.PN.HOSP ---
Patient Problems: Active and Suspected Problems (Last Updated 07/05/18 @ 12:55 by Howard Hudson MD) Chest pain (Acute) Subjective: had another episode today of diaphoresis--no chest pain, no syncope. Vitals/I&O's: Vital Signs Temp Pulse Resp BP Pulse Ox 36.8 C 70 16 125/75 H 94 07/13/18 07:12 07/13/18 07:12 07/13/18 07:12 07/13/18 07:12 07/13/18 07:50 Oxygen Delivery Method Room Air Weight: 89 kg Body Mass Index (BMI) 27.3 Intake and Output for Last 24 Hours 07/11/18 07/12/18 07/13/18 23:59 23:59 22:59 Intake Total 480 / 480 740 / 740 580 / 580 Output Total 500 / 500 200 / 200 250 / 250 Balance -20 / -20 540 / 540 330 / 330 General: Alert, Cooperative, No apparent distress HEENT: Atraumatic, Normocephalic Oral: Moist Mucosa, No Gingival or Mucosal Lesions/ Ulcerations Psych/Mental Status: Normal Affect, Appropriate Current Medications Aspirin (Aspirin, Baby) 81 mg PO DAILY@0800 [facility] Last Admin: 07/13/18 08:45 Dose: 81 mg Atorvastatin Calcium (Lipitor) 20 mg PO QHS [facility] Last Admin: 07/12/18 22:51 Dose: 20 mg Bisacodyl (Dulcolax) 10 mg RECTAL .PRN X 1 PRN PRN Reason: Constipation Calcium Carbonate (Tums) 500 mg PO Q4H PRN PRN PRN Reason: INDIGESTION Last Admin: 07/12/18 23:09 Dose: 500 mg Enoxaparin Sodium (Lovenox) 40 mg SC DAILY@0600 [facility] Last Admin: 07/13/18 06:04 Dose: 40 mg Fentanyl (Duragesic Patch) 25 mcg TRANSDERM. Q72H [facility] Last Admin: 07/11/18 11:23 Dose: 25 mcg Gabapentin (Neurontin) 300 mg PO TIDCM [facility] Last Admin: 07/13/18 12:14 Dose: 300 mg Hydrochlorothiazide (Hctz) 25 mg PO DAILY [facility] Last Admin: 07/13/18 08:45 Dose: 25 mg Magnesium Hydroxide (Milk Of Magnesia) 30 ml PO .PRN X 1 PRN PRN Reason: Constipation Last Admin: 07/11/18 17:08 Dose: 30 ml Nicotine (Nicoderm Cq (Pbkc)) 14 mg TRANSDERM. DAILY [facility] Last Admin: 07/13/18 08:45 Dose: 14 mg Nystatin (Nystatin) 500,000 unit PO 4X/DAY [facility] Last Admin: 07/13/18 08:45 Dose: 500,000 unit Oxycodone HCl (Oxyir) 5 - 10 mg PO Q4H PRN PRN PRN Reason: PAIN Last Admin: 07/13/18 08:47 Dose: 10 mg Polyethylene Glycol (Miralax) 17 gm PO BID [facility] Last Admin: 07/12/18 18:12 Dose: Not Given Senna/Docusate Sodium (Senokot-S, Shelia-Colace) 2 tablet PO BID [facility] Last Admin: 07/12/18 18:12 Dose: Not Given Sodium Chloride () 5 - 30 ml IV UD PRN PRN Reason: SALINE FLUSH Last Admin: 07/13/18 06:05 Dose: 10 ml Medical Necessity - Tobacco Use Smoking Status: Heavy Smoker (>10/day) Tobacco Use: Cigarettes Assessment/Plan All Active Problems (Last Updated 07/05/18 @ 12:55 by Howard Hudson MD) Chest pain (Acute) dyspnea (Acute) PND (post-nasal drip) (Acute) Hand, foot and mouth disease (Acute) Sacroiliitis (Acute) Acute right hip pain (Acute) Constipation (Acute) 1. diaphoresis: CTA negative for PE may be vasovagal. 2. left calf tenderness duplex ordered improved 3. s/p L2-3 microdiscectomy continue with rehab services follow up with Dr. Loza as outpt 4. DVT proph: LMWH, however, if + VTE, then this will be discontinued in lieu of a NOAC Greater than 25 minutes of which greater than 50% of the time was discussing results and diaphoresis. Code Visit Inpatient E&M: 85205 Subs Hosp L2
--- NOTE | 2018-07-13 12:59 | PN_ITS ---
Patient Problems: Active and Suspected Problems (Last Updated 07/05/18 @ 12:55 by Howard Hudson MD) Chest pain (Acute) Subjective: had another episode today of diaphoresis--no chest pain, no syncope. Vitals/I&O's: Vital Signs Temp Pulse Resp BP Pulse Ox 36.8 C 70 16 125/75 H 94 07/13/18 07:12 07/13/18 07:12 07/13/18 07:12 07/13/18 07:12 07/13/18 07:50 Oxygen Delivery Method Room Air Weight: 89 kg Body Mass Index (BMI) 27.3 Intake and Output for Last 24 Hours 07/11/18 07/12/18 07/13/18 23:59 23:59 22:59 Intake Total 480 / 480 740 / 740 580 / 580 Output Total 500 / 500 200 / 200 250 / 250 Balance -20 / -20 540 / 540 330 / 330 General: Alert, Cooperative, No apparent distress HEENT: Atraumatic, Normocephalic Oral: Moist Mucosa, No Gingival or Mucosal Lesions/ Ulcerations Psych/Mental Status: Normal Affect, Appropriate Current Medications Aspirin (Aspirin, Baby) 81 mg PO DAILY@0800 [facility] Last Admin: 07/13/18 08:45 Dose: 81 mg Atorvastatin Calcium (Lipitor) 20 mg PO QHS [facility] Last Admin: 07/12/18 22:51 Dose: 20 mg Bisacodyl (Dulcolax) 10 mg RECTAL .PRN X 1 PRN PRN Reason: Constipation Calcium Carbonate (Tums) 500 mg PO Q4H PRN PRN PRN Reason: INDIGESTION Last Admin: 07/12/18 23:09 Dose: 500 mg Enoxaparin Sodium (Lovenox) 40 mg SC DAILY@0600 [facility] Last Admin: 07/13/18 06:04 Dose: 40 mg Fentanyl (Duragesic Patch) 25 mcg TRANSDERM. Q72H [facility] Last Admin: 07/11/18 11:23 Dose: 25 mcg Gabapentin (Neurontin) 300 mg PO TIDCM [facility] Last Admin: 07/13/18 12:14 Dose: 300 mg Hydrochlorothiazide (Hctz) 25 mg PO DAILY [facility] Last Admin: 07/13/18 08:45 Dose: 25 mg Magnesium Hydroxide (Milk Of Magnesia) 30 ml PO .PRN X 1 PRN PRN Reason: Constipation Last Admin: 07/11/18 17:08 Dose: 30 ml Nicotine (Nicoderm Cq (Pbkc)) 14 mg TRANSDERM. DAILY [facility] Last Admin: 07/13/18 08:45 Dose: 14 mg Nystatin (Nystatin) 500,000 unit PO 4X/DAY [facility] Last Admin: 07/13/18 08:45 Dose: 500,000 unit Oxycodone HCl (Oxyir) 5 - 10 mg PO Q4H PRN PRN PRN Reason: PAIN Last Admin: 07/13/18 08:47 Dose: 10 mg Polyethylene Glycol (Miralax) 17 gm PO BID [facility] Last Admin: 07/12/18 18:12 Dose: Not Given Senna/Docusate Sodium (Senokot-S, Shelia-Colace) 2 tablet PO BID [facility] Last Admin: 07/12/18 18:12 Dose: Not Given Sodium Chloride () 5 - 30 ml IV UD PRN PRN Reason: SALINE FLUSH Last Admin: 07/13/18 06:05 Dose: 10 ml Medical Necessity - Tobacco Use Smoking Status: Heavy Smoker (>10/day) Tobacco Use: Cigarettes Assessment/Plan All Active Problems (Last Updated 07/05/18 @ 12:55 by Howard Hudson MD) Chest pain (Acute) dyspnea (Acute) PND (post-nasal drip) (Acute) Hand, foot and mouth disease (Acute) Sacroiliitis (Acute) Acute right hip pain (Acute) Constipation (Acute) 1. diaphoresis: * CTA negative for PE * may be vasovagal. 2. left calf tenderness * duplex ordered * improved 3. s/p L2-3 microdiscectomy * continue with rehab services * follow up with Dr. Loza as outpt 4. DVT proph: * LMWH, however, if + VTE, then this will be discontinued in lieu of a NOAC Greater than 25 minutes of which greater than 50% of the time was discussing results and diaphoresis. Code Visit Inpatient E&M: [id number] Subs Hosp L2
[2018-07-13] MEDS: Atorvastatin Calcium 20 MG Tablet PO (20:48)
[2018-07-13 21:05] VITALS: BP 139/72; PULSE 62; RESP 18; TEMP 36.4; O2SAT 93
[2018-07-14] MEDS: Enoxaparin 40 MG/0.4 ML Syringe SC (06:19)
[2018-07-14 09:01] VITALS: BP 116/53; PULSE 61; RESP 18; TEMP 36.5; O2SAT 95
[2018-07-14] MEDS: hydroCHLOROthiazide 25 MG Tablet PO (09:07)
[2018-07-14] MEDS: Gabapentin 300 MG Capsule PO ×3 (09:07→17:08)
[2018-07-14] MEDS: Aspirin 81 MG TAB.CHEW PO (09:07)
--- NOTE | 2018-07-14 12:28 | PCM.PN.NEU ---
Subjective: Patient seen and examined, over the weekend has a couple of episodes where he was diaphoretic. Denies any dizziness, shortness of breath or chest pains. We discussed the possibility of the Duragesic patch or the nicotine patch causing his 'Hot Flashes will decrease both to a lower dose and see how he feels tomorrow. Pain is well controlled. No issues with GI/. - Physical Exam General: Alert, Oriented x3, Cooperative HEENT: Atraumatic, PERRLA, EOMI, Normocephalic Neck: Supple, No JVD, Negative Carotid Bruits Lungs: Clear to auscultation, Normal air movement Cardiovascular: Regular rate, No murmurs Abdomen: Bowel Sounds Present, Soft, Non Tender Extremities: No edema, Capillary Refill Less than 3 Seconds Skin: No rashes, No breakdown Musculoskeletal: No Tenderness to Palpation of Joints or Extremities Neurological: Cranial nerves II-XII grossly intact Psych/Mental Status: Normal Affect, Appropriate, Alert and oriented to time, place, person, mood and affect Vital Signs Temp Pulse Resp BP Pulse Ox 97.7 F L 61 18 116/53 L 95 07/14/18 09:01 07/14/18 09:01 07/14/18 09:01 07/14/18 09:01 07/14/18 09:01 Oxygen Delivery Method Room Air Weight: 89 kg Body Mass Index (BMI) 27.3 Intake and Output for Last 24 Hours 07/13/18 07/13/18 07/14/18 00:59 23:59 23:59 Intake Total Output Total Balance Active Medications Aspirin (Aspirin, Baby) 81 mg PO DAILY@0800 [facility] Last Admin: 07/14/18 09:07 Dose: 81 mg Atorvastatin Calcium (Lipitor) 20 mg PO QHS [facility] Last Admin: 07/13/18 20:48 Dose: 20 mg Bisacodyl (Dulcolax) 10 mg RECTAL .PRN X 1 PRN PRN Reason: Constipation Calcium Carbonate (Tums) 500 mg PO Q4H PRN PRN PRN Reason: INDIGESTION Last Admin: 07/12/18 23:09 Dose: 500 mg Enoxaparin Sodium (Lovenox) 40 mg SC DAILY@0600 [facility] Last Admin: 07/14/18 06:19 Dose: 40 mg Fentanyl (Duragesic Patch) 12 mcg TRANSDERM. Q72H [facility] Last Admin: 07/14/18 10:38 Dose: 12 mcg Gabapentin (Neurontin) 300 mg PO TIDCM [facility] Last Admin: 07/14/18 09:07 Dose: 300 mg Hydrochlorothiazide (Hctz) 25 mg PO DAILY [facility] Last Admin: 07/14/18 09:07 Dose: 25 mg Magnesium Hydroxide (Milk Of Magnesia) 30 ml PO .PRN X 1 PRN PRN Reason: Constipation Last Admin: 07/11/18 17:08 Dose: 30 ml Nicotine (Nicoderm Cq (Pbkc)) 7 mg TRANSDERM. DAILY [facility] Last Admin: 07/14/18 10:29 Dose: 7 mg Oxycodone HCl (Oxyir) 5 - 10 mg PO Q4H PRN PRN PRN Reason: PAIN Last Admin: 07/13/18 20:57 Dose: 10 mg Polyethylene Glycol (Miralax) 17 gm PO DAILY PRN PRN Reason: Constipation Senna/Docusate Sodium (Senokot-S, Shelia-Colace) 2 tablet PO BID [facility] Last Admin: 07/14/18 09:05 Dose: Not Given Sodium Chloride () 5 - 30 ml IV UD PRN PRN Reason: SALINE FLUSH Last Admin: 07/13/18 06:05 Dose: 10 ml Medical Necessity - Tobacco Use Smoking Status: Heavy Smoker (>10/day) Tobacco Use: Cigarettes Assessment/Plan All Active Problems (Last Updated 07/05/18 @ 12:55 by Howard Hudson MD) Chest pain (Acute) dyspnea (Acute) PND (post-nasal drip) (Acute) Hand, foot and mouth disease (Acute) Sacroiliitis (Acute) Acute right hip pain (Acute) Constipation (Acute) Debility status post Microdiscectomy, L2-L3 right surgery. Goal of rehab is nondenominational of prior level of functional independence. Plan: - Physical therapy for gait and balance - Occupational Therapy for ADLs - As needed analgesics - Bowel protocol - DVT prophylaxis: Lovenox, SCDs and Sumit Hoses - Hx of HTN - continue home medication of HCTZ - Tobacco Abuse => start on Nicoderm patch 14mg x21 days - Hx BPH => stable - continue home medication - Hx HLD - continue Lipitor 20mg at hs - LIZA - on CPAP at home - continue here on his settings - Hx of COPD - may do Duonebs if needed - Constipation - Senna 2 tabs BID, Miralax BID, and MOM - Neuropathy/pain - continue on home dose of GPN
[2018-07-14] MEDS: oxyCODONE 5 MG Tablet PO ×2 (13:06→21:35)
[2018-07-14 21:30] VITALS: BP 118/57; PULSE 48; RESP 16; TEMP 36.5; O2SAT 98
[2018-07-14] MEDS: Calcium Carbonate 500 MG Tablet PO (21:34)
[2018-07-14] MEDS: Atorvastatin Calcium 20 MG Tablet PO (21:35)
[2018-07-15] MEDS: oxyCODONE 5 MG Tablet PO ×3 (04:08→21:04)
--- NOTE | 2018-07-15 04:51 | NURSING ---
Reviewed and agree with HEAD OF TRAINING AND DEVELOPMENT documentation and FIMs charting.
--- NOTE | 2018-07-15 04:55 | NURSING ---
Reviewed and agree with FAMILY SUPPORT WORKER documentation and FIMS charting.
[2018-07-15] MEDS: Enoxaparin 40 MG/0.4 ML Syringe SC (05:03)
[2018-07-15] MEDS: Aspirin 81 MG TAB.CHEW PO (07:54)
[2018-07-15] MEDS: Gabapentin 300 MG Capsule PO ×3 (07:54→16:57)
[2018-07-15] MEDS: hydroCHLOROthiazide 25 MG Tablet PO (07:54)
[2018-07-15 08:45] VITALS: BP 106/50; PULSE 51; RESP 18; TEMP 36.8; O2SAT 96
--- NOTE | 2018-07-15 10:52 | PCM.PN.NEU ---
Subjective: Patient seen and examined. This morning had a bright red rash on the right neck and chin area which has resolved, origin unknown. Denies rash anywhere else, or itching from rash site. Denies any more diaphoretic episodes, since Duragesic patch and nicotine patch strength was decreased yesterday. He is tolerating therapy, he walked greater than 300 feet with a cane. Pain is well controlled on current medication. - Physical Exam General: Alert, Oriented x3, Cooperative HEENT: Atraumatic, PERRLA, EOMI, Normocephalic Neck: Supple, No JVD, Negative Carotid Bruits Lungs: Clear to auscultation, Normal air movement Cardiovascular: Regular rate, No murmurs Abdomen: Bowel Sounds Present, Soft, Non Tender Extremities: No edema, Capillary Refill Less than 3 Seconds Skin: No rashes, No breakdown Musculoskeletal: No Tenderness to Palpation of Joints or Extremities Neurological: Cranial nerves II-XII grossly intact Psych/Mental Status: Normal Affect, Appropriate, Alert and oriented to time, place, person, mood and affect Vital Signs Temp Pulse Resp BP Pulse Ox 98.2 F 51 L 18 106/50 L 96 07/15/18 08:45 07/15/18 08:45 07/15/18 08:45 07/15/18 08:45 07/15/18 08:45 Oxygen Delivery Method Room Air Weight: 89 kg Body Mass Index (BMI) 27.3 Intake and Output for Last 24 Hours 07/13/18 07/14/18 07/15/18 23:59 23:59 23:59 Intake Total 240 / 240 Output Total Balance 240 / 240 Active Medications Aspirin (Aspirin, Baby) 81 mg PO DAILY@0800 [facility] Last Admin: 07/15/18 07:54 Dose: 81 mg Atorvastatin Calcium (Lipitor) 20 mg PO QHS [facility] Last Admin: 07/14/18 21:35 Dose: 20 mg Bisacodyl (Dulcolax) 10 mg RECTAL .PRN X 1 PRN PRN Reason: Constipation Calcium Carbonate (Tums) 500 mg PO Q4H PRN PRN PRN Reason: INDIGESTION Last Admin: 07/14/18 21:34 Dose: 500 mg Enoxaparin Sodium (Lovenox) 40 mg SC DAILY@0600 [facility] Last Admin: 07/15/18 05:03 Dose: 40 mg Fentanyl (Duragesic Patch) 12 mcg TRANSDERM. Q72H [facility] Last Admin: 07/14/18 10:38 Dose: 12 mcg Gabapentin (Neurontin) 300 mg PO TIDCM [facility] Last Admin: 07/15/18 07:54 Dose: 300 mg Hydrochlorothiazide (Hctz) 25 mg PO DAILY [facility] Last Admin: 07/15/18 07:54 Dose: 25 mg Magnesium Hydroxide (Milk Of Magnesia) 30 ml PO .PRN X 1 PRN PRN Reason: Constipation Last Admin: 07/11/18 17:08 Dose: 30 ml Nicotine (Nicoderm Cq (Pbkc)) 7 mg TRANSDERM. DAILY [facility] Last Admin: 07/15/18 07:54 Dose: 7 mg Oxycodone HCl (Oxyir) 5 - 10 mg PO Q4H PRN PRN PRN Reason: PAIN Last Admin: 07/15/18 04:08 Dose: 10 mg Polyethylene Glycol (Miralax) 17 gm PO DAILY PRN PRN Reason: Constipation Senna/Docusate Sodium (Senokot-S, Shelia-Colace) 2 tablet PO BID [facility] Last Admin: 07/15/18 07:55 Dose: Not Given Sodium Chloride () 5 - 30 ml IV UD PRN PRN Reason: SALINE FLUSH Last Admin: 07/13/18 06:05 Dose: 10 ml Medical Necessity - Tobacco Use Smoking Status: Heavy Smoker (>10/day) Tobacco Use: Cigarettes Assessment/Plan All Active Problems (Last Updated 07/05/18 @ 12:55 by Howard Hudson MD) Chest pain (Acute) dyspnea (Acute) PND (post-nasal drip) (Acute) Hand, foot and mouth disease (Acute) Sacroiliitis (Acute) Acute right hip pain (Acute) Constipation (Acute) Debility status post Microdiscectomy, L2-L3 right surgery. Goal of rehab is confucianist of prior level of functional independence. Plan: - Physical therapy for gait and balance - Occupational Therapy for ADLs - As needed analgesics - Bowel protocol - DVT prophylaxis: Lovenox, SCDs and Sumit Hoses - Hx of HTN - continue home medication of HCTZ - Tobacco Abuse => start on Nicoderm patch 14mg x21 days - Hx BPH => stable - continue home medication - Hx HLD - continue Lipitor 20mg at hs - LIZA - on CPAP at home - continue here on his settings - Hx of COPD - may do Duonebs if needed - Constipation - Senna 2 tabs BID, Miralax BID, and MOM - Neuropathy/pain - continue on home dose of GPN
--- NOTE | 2018-07-15 10:57 | PN.NEURO_ITS ---
Subjective: Patient seen and examined. This morning had a bright red rash on the right neck and chin area which has resolved, origin unknown. Denies rash anywhere else, or itching from rash site. Denies any more diaphoretic episodes, since Duragesic patch and nicotine patch strength was decreased yesterday. He is tolerating therapy, he walked greater than 300 feet with a cane. Pain is well controlled on current medication. - Physical Exam General: Alert, Oriented x3, Cooperative HEENT: Atraumatic, PERRLA, EOMI, Normocephalic Neck: Supple, No JVD, Negative Carotid Bruits Lungs: Clear to auscultation, Normal air movement Cardiovascular: Regular rate, No murmurs Abdomen: Bowel Sounds Present, Soft, Non Tender Extremities: No edema, Capillary Refill Less than 3 Seconds Skin: No rashes, No breakdown Musculoskeletal: No Tenderness to Palpation of Joints or Extremities Neurological: Cranial nerves II-XII grossly intact Psych/Mental Status: Normal Affect, Appropriate, Alert and oriented to time, place, person, mood and affect Vital Signs Temp Pulse Resp BP Pulse Ox 98.2 F 51 L 18 106/50 L 96 07/15/18 08:45 07/15/18 08:45 07/15/18 08:45 07/15/18 08:45 07/15/18 08:45 Oxygen Delivery Method Room Air Weight: 89 kg Body Mass Index (BMI) 27.3 Intake and Output for Last 24 Hours 07/13/18 07/14/18 07/15/18 23:59 23:59 23:59 Intake Total 240 / 240 Output Total Balance 240 / 240 Active Medications Aspirin (Aspirin, Baby) 81 mg PO DAILY@0800 [facility] Last Admin: 07/15/18 07:54 Dose: 81 mg Atorvastatin Calcium (Lipitor) 20 mg PO QHS [facility] Last Admin: 07/14/18 21:35 Dose: 20 mg Bisacodyl (Dulcolax) 10 mg RECTAL .PRN X 1 PRN PRN Reason: Constipation Calcium Carbonate (Tums) 500 mg PO Q4H PRN PRN PRN Reason: INDIGESTION Last Admin: 07/14/18 21:34 Dose: 500 mg Enoxaparin Sodium (Lovenox) 40 mg SC DAILY@0600 [facility] Last Admin: 07/15/18 05:03 Dose: 40 mg Fentanyl (Duragesic Patch) 12 mcg TRANSDERM. Q72H [facility] Last Admin: 07/14/18 10:38 Dose: 12 mcg Gabapentin (Neurontin) 300 mg PO TIDCM [facility] Last Admin: 07/15/18 07:54 Dose: 300 mg Hydrochlorothiazide (Hctz) 25 mg PO DAILY [facility] Last Admin: 07/15/18 07:54 Dose: 25 mg Magnesium Hydroxide (Milk Of Magnesia) 30 ml PO .PRN X 1 PRN PRN Reason: Constipation Last Admin: 07/11/18 17:08 Dose: 30 ml Nicotine (Nicoderm Cq (Pbkc)) 7 mg TRANSDERM. DAILY [facility] Last Admin: 07/15/18 07:54 Dose: 7 mg Oxycodone HCl (Oxyir) 5 - 10 mg PO Q4H PRN PRN PRN Reason: PAIN Last Admin: 07/15/18 04:08 Dose: 10 mg Polyethylene Glycol (Miralax) 17 gm PO DAILY PRN PRN Reason: Constipation Senna/Docusate Sodium (Senokot-S, Shelia-Colace) 2 tablet PO BID [facility] Last Admin: 07/15/18 07:55 Dose: Not Given Sodium Chloride () 5 - 30 ml IV UD PRN PRN Reason: SALINE FLUSH Last Admin: 07/13/18 06:05 Dose: 10 ml Medical Necessity - Tobacco Use Smoking Status: Heavy Smoker (>10/day) Tobacco Use: Cigarettes Assessment/Plan All Active Problems (Last Updated 07/05/18 @ 12:55 by Howard Hudson MD) Chest pain (Acute) dyspnea (Acute) PND (post-nasal drip) (Acute) Hand, foot and mouth disease (Acute) Sacroiliitis (Acute) Acute right hip pain (Acute) Constipation (Acute) Debility status post Microdiscectomy, L2-L3 right surgery. Goal of rehab is sikh of prior level of functional independence. Plan: - Physical therapy for gait and balance - Occupational Therapy for ADLs - As needed analgesics - Bowel protocol - DVT prophylaxis: Lovenox, SCDs and Sumit Hoses - Hx of HTN - continue home medication of HCTZ - Tobacco Abuse => start on Nicoderm patch 14mg x21 days - Hx BPH => stable - continue home medication - Hx HLD - continue Lipitor 20mg at hs - LIZA - on CPAP at home - continue here on his settings - Hx of COPD - may do Duonebs if needed - Constipation - Senna 2 tabs BID, Miralax BID, and MOM - Neuropathy/pain - continue on home dose of GPN
[2018-07-15] MEDS: Pantoprazole Sodium 40 MG Tablet PO (12:49)
[2018-07-15 20:15] VITALS: BP 113/46; PULSE 57; RESP 19; TEMP 36.6; O2SAT 96
[2018-07-15] MEDS: Atorvastatin Calcium 20 MG Tablet PO (21:04)
--- NOTE | 2018-07-16 02:38 | NURSING ---
Reviewed and agree with LIVING SUPERVISOR documentation and FIMs charting.
[2018-07-16] MEDS: Enoxaparin 40 MG/0.4 ML Syringe SC (05:06)
[2018-07-16] MEDS: oxyCODONE 5 MG Tablet PO ×4 (05:08→21:53)
--- NOTE | 2018-07-16 05:23 | NURSING ---
Actual weight captured today with w/c, legs, & blanket = 21.8kg and pt weight of 61.6kg.
[2018-07-16 09:16] VITALS: BP 114/51; PULSE 50; RESP 18; TEMP 36.5; O2SAT 96
[2018-07-16] MEDS: hydroCHLOROthiazide 25 MG Tablet PO (09:32)
[2018-07-16] MEDS: Pantoprazole Sodium 40 MG Tablet PO (09:33)
[2018-07-16] MEDS: Gabapentin 300 MG Capsule PO ×3 (09:33→17:17)
[2018-07-16] MEDS: Aspirin 81 MG TAB.CHEW PO (09:33)
--- NOTE | 2018-07-16 12:07 | PCM.PN.NEU ---
- Physical Exam Vital Signs Temp Pulse Resp BP Pulse Ox 36.5 C L 50 L 18 114/51 L 96 07/16/18 09:16 07/16/18 09:16 07/16/18 09:16 07/16/18 09:16 07/16/18 09:16 Oxygen Delivery Method Room Air Weight: 61.6 kg Body Mass Index (BMI) 27.3 Intake and Output for Last 24 Hours 07/14/18 07/15/18 07/16/18 23:59 23:59 23:59 Intake Total 480 / 480 240 / 240 Balance 480 / 480 240 / 240 Medical Necessity - Tobacco Use Smoking Status: Heavy Smoker (>10/day) Tobacco Use: Cigarettes Assessment/Plan All Active Problems (Last Updated 07/05/18 @ 12:55 by Howard Hudson MD) Chest pain (Acute) dyspnea (Acute) PND (post-nasal drip) (Acute) Hand, foot and mouth disease (Acute) Sacroiliitis (Acute) Acute right hip pain (Acute) Constipation (Acute) Debility status post Microdiscectomy, L2-L3 right surgery. Goal of rehab is oriental orthodox of prior level of functional independence. Plan: - Physical therapy for gait and balance - Occupational Therapy for ADLs - As needed analgesics - Bowel protocol - DVT prophylaxis: Lovenox, SCDs and Sumit Hoses - Hx of HTN - continue home medication of HCTZ - Tobacco Abuse => start on Nicoderm patch 14mg x21 days - Hx BPH => stable - continue home medication - Hx HLD - continue Lipitor 20mg at hs - LIZA - on CPAP at home - continue here on his settings - Hx of COPD - may do Duonebs if needed - Constipation - Senna 2 tabs BID, Miralax BID, and MOM - Neuropathy/pain - continue on home dose of GPN
[2018-07-16 21:39] VITALS: BP 139/57; PULSE 56; RESP 16; TEMP 36.5; O2SAT 97
[2018-07-16 21:45] VITALS: PULSE 56; RESP 16; O2SAT 97
[2018-07-16] MEDS: Senna/Docusate Sodium 1 Tablet 2 TABLET PO (21:53)
[2018-07-16] MEDS: Atorvastatin Calcium 20 MG Tablet PO (21:53)
--- NOTE | 2018-07-17 02:38 | NURSING ---
REVIEWED AND AGREE WITH REGULATORY COMPLIANCE OFFICER'S FIM AND HANDOFF CHARTING.
[2018-07-17] MEDS: Enoxaparin 40 MG/0.4 ML Syringe SC (05:40)
[2018-07-17] MEDS: oxyCODONE 5 MG Tablet PO ×4 (06:19→20:35)
[2018-07-17 07:05] VITALS: BP 121/65; PULSE 97; RESP 20; TEMP 36.6; O2SAT 95
--- NOTE | 2018-07-17 07:20 | NURSING ---
pt reports that he feels that he is not emptying all the way with some discomfort with urination and some burning , pt bladder scanned and value 546cc. day shift rn made aware
[2018-07-17] MEDS: hydroCHLOROthiazide 25 MG Tablet PO (08:11)
[2018-07-17] MEDS: Pantoprazole Sodium 40 MG Tablet PO (08:11)
[2018-07-17] MEDS: Gabapentin 300 MG Capsule PO ×3 (08:11→17:25)
[2018-07-17] MEDS: Aspirin 81 MG TAB.CHEW PO (08:11)
[2018-07-17] MEDS: Senna/Docusate Sodium 1 Tablet 2 TABLET PO ×2 (08:11→20:35)
[2018-07-17 10:00] VITALS: PULSE 64
--- NOTE | 2018-07-17 11:31 | PCM.PN.NEU ---
Patient Problems: Active and Suspected Problems (Last Updated 07/05/18 @ 12:55 by Howard Hudson MD) Urinary retention (Acute) Constipation (Acute) Subjective: No issues overnight. Staffed in team meeting today. All questions were answered. With PT for transfers he is stand by assist, walks with cane. With OT ADLs-set up /stand by assist, minimal assist while using bath tubs, but stand by assist for shower, uses equipment. 67 M with PMH HTN, HLD, COPD, BPH, LIZA on CPAP, admitted to [facility] on 07/10/2018 with debility s/p microdiscectomy at L2-L3 by Dr. Spain at [facility], for > 3 hrs therapy daily, with a goal of returning back home at or near his prior level of functional independence. Following admission he has been tolerating therapies well. His incision ashleigh are to be removed by surgeon on 07/28/18. Following admission patient had LE venous Dopplers which did not show any DVT, and CTA chest which did not show any PE. - Physical Exam General: Alert HEENT: Normocephalic Neck: Supple Lungs: Normal air movement Cardiovascular: Normal S1, Normal S2 Abdomen: Bowel Sounds Present Extremities: No cyanosis Neurological: - - consious, alert, AoAx3, CN 2-12 grossly intact, moves all 4 extremities, denies any sensory loss, no cerebellar signs, Reflexes + B/L B/S/T/K/A, gait deferred Psych/Mental Status: Normal Affect Vital Signs Temp Pulse Resp BP Pulse Ox 97.8 F 64 20 H 121/65 H 95 07/17/18 07:05 07/17/18 10:00 07/17/18 07:05 07/17/18 07:05 07/17/18 07:05 Oxygen Delivery Method Room Air Weight: 61.6 kg Body Mass Index (BMI) 27.3 Intake and Output for Last 24 Hours 07/15/18 07/16/18 07/17/18 23:59 23:59 23:59 Intake Total 480 / 480 240 / 240 240 / 240 Balance 480 / 480 240 / 240 240 / 240 Medical Necessity - Tobacco Use Smoking Status: Heavy Smoker (>10/day) Tobacco Use: Cigarettes Assessment/Plan All Active Problems (Last Updated 07/05/18 @ 12:55 by Howard Hudson MD) Urinary retention (Acute) Chest pain (Resolved) dyspnea (Acute) PND (post-nasal drip) (Acute) Hand, foot and mouth disease (Acute) Sacroiliitis (Acute) Acute right hip pain (Acute) Constipation (Acute) 67 M with PMH HTN, HLD, COPD, BPH, LIZA on CPAP, admitted to [facility] on 07/10/2018 with debility s/p microdiscectomy at L2-L3 by Dr. Spain at [facility], for > 3 hrs therapy daily, with a goal of returning back home at or near his prior level of functional independence. Following admission he has been tolerating therapies well. His incision ashleigh are to be removed by surgeon on 07/28/18. Following admission patient had LE venous Dopplers which did not show any DVT, and CTA chest which did not show any PE. Per patient he was diagnosed with BPH, has urinary retention while sitting but not while standing up and per patient he has been recommended surgery/procedure by his urologist (he does not remember the name of the urologist and not further details available at this point). Plan: - Physical therapy for gait and balance - Occupational Therapy for ADLs - As needed analgesics - Bowel protocol - DVT prophylaxis: Lovenox, SCDs and Sumit Hoses - Hx of HTN - continue home medication of HCTZ - Hx HLD - continue Lipitor 20mg at hs - Tobacco Abuse => start on Nicoderm patch 14mg x21 days - Hx BPH => started on Flomax - LIZA - on CPAP at home - continue here on his settings - Hx of COPD - may do Duonebs if needed - Constipation - Senna 2 tabs BID, Miralax BID, and MOM - Pain - continue on home dose of GPN. On Fentanyl patch - GI/DVT prophylaxis - Fall precautions - Further medical management per hospitalist recommendations.
--- NOTE | 2018-07-17 12:05 | CASEMGMT ---
Team meeting held. Patient present as well as patient family. No discharge date set at this time. Patient to continue with further care and treatment on the Inpatient Rehab Unit. Patient approved 20 days with Medicare with a discharge on or by 07/30/18. Patient is doing well. Plan is to re-team patient on Saturday and then set a discharge date from there. Patient plans to discharge to home with spouse at time of discharge. Support given. Will continue to follow. LINDA Hall, LAUNDRY ATTENDANT
--- NOTE | 2018-07-17 14:14 | NURSING ---
pt voided 150cc approx 45min ago, bladder scanned at this time for 441cc. pt now voided 175cc. will cont to monitor.
--- NOTE | 2018-07-17 14:15 | NURSING ---
warm prune juice given per pt request for no bm since 07/14.
--- NOTE | 2018-07-17 14:22 | PCM.PN.HOSP ---
Patient Problems: Active and Suspected Problems (Last Updated 07/05/18 @ 12:55 by Howard Hudson MD) Urinary retention (Acute) Constipation (Acute) Subjective: No further chest pain. Constipation. Urinary retention, which is chronic issue. Vitals/I&O's: Vital Signs Temp Pulse Resp BP Pulse Ox 36.6 C 64 20 H 121/65 H 95 07/17/18 07:05 07/17/18 10:00 07/17/18 07:05 07/17/18 07:05 07/17/18 07:05 Oxygen Delivery Method Room Air Weight: 61.6 kg Body Mass Index (BMI) 27.3 Intake and Output for Last 24 Hours 07/15/18 07/16/18 07/17/18 23:59 23:59 23:59 Intake Total 480 / 480 240 / 240 480 / 480 Balance 480 / 480 240 / 240 480 / 480 General: Alert, Cooperative, No apparent distress HEENT: Atraumatic, Normocephalic Neurological: Coordination normal, Gait narrow based and stable Psych/Mental Status: Normal Affect, Appropriate Current Medications Acetaminophen (Tylenol) 650 mg PO Q6H PRN PRN PRN Reason: PAIN Aspirin (Aspirin, Baby) 81 mg PO DAILY@0800 [facility] Last Admin: 07/17/18 08:11 Dose: 81 mg Atorvastatin Calcium (Lipitor) 20 mg PO QHS [facility] Last Admin: 07/16/18 21:53 Dose: 20 mg Bisacodyl (Dulcolax) 10 mg RECTAL .PRN X 1 PRN PRN Reason: Constipation Calcium Carbonate (Tums) 500 mg PO Q4H PRN PRN PRN Reason: INDIGESTION Last Admin: 07/14/18 21:34 Dose: 500 mg Enoxaparin Sodium (Lovenox) 40 mg SC DAILY@0600 [facility] Last Admin: 07/17/18 05:40 Dose: 40 mg Fentanyl (Duragesic Patch) 12 mcg TRANSDERM. Q72H [facility] Last Admin: 07/17/18 10:05 Dose: 12 mcg Gabapentin (Neurontin) 300 mg PO TIDCM [facility] Last Admin: 07/17/18 11:18 Dose: 300 mg Hydrochlorothiazide (Hctz) 25 mg PO DAILY [facility] Last Admin: 07/17/18 08:11 Dose: 25 mg Magnesium Hydroxide (Milk Of Magnesia) 30 ml PO .PRN X 1 PRN PRN Reason: Constipation Last Admin: 07/11/18 17:08 Dose: 30 ml Nicotine (Nicoderm Cq (Pbkc)) 7 mg TRANSDERM. DAILY [facility] Last Admin: 07/17/18 10:04 Dose: 7 mg Oxycodone HCl (Oxyir) 5 - 10 mg PO Q4H PRN PRN PRN Reason: PAIN Last Admin: 07/17/18 11:18 Dose: 10 mg Pantoprazole Sodium (Protonix) 40 mg PO DAILY [facility] Last Admin: 07/17/18 08:11 Dose: 40 mg Polyethylene Glycol (Miralax) 17 gm PO DAILY PRN PRN Reason: Constipation Senna/Docusate Sodium (Senokot-S, Shelia-Colace) 2 tablet PO BID [facility] Last Admin: 07/17/18 08:11 Dose: 2 tablet Sodium Chloride () 5 - 30 ml IV UD PRN PRN Reason: SALINE FLUSH Last Admin: 07/13/18 06:05 Dose: 10 ml Tamsulosin HCl (Flomax) 0.4 mg PO DAILY@1730 [facility] Medical Necessity - Tobacco Use Smoking Status: Heavy Smoker (>10/day) Tobacco Use: Cigarettes Assessment/Plan All Active Problems (Last Updated 07/05/18 @ 12:55 by Howard Hudson MD) Urinary retention (Acute) Chest pain (Resolved) dyspnea (Acute) PND (post-nasal drip) (Acute) Hand, foot and mouth disease (Acute) Sacroiliitis (Acute) Acute right hip pain (Acute) Constipation (Acute) 1. diaphoresis: resolved, may be due to medications CTA negative for PE may be vasovagal. 2. left calf tenderness likely 2/2 muscle strain duplex negative 3. s/p L2-3 microdiscectomy continue with rehab services follow up with Dr. Loza as outpt 4. DVT proph: LMWH Code Visit Inpatient E&M: 51316 Subs Hosp L1
--- NOTE | 2018-07-17 14:25 | PN_ITS ---
Patient Problems: Active and Suspected Problems (Last Updated 07/05/18 @ 12:55 by Howard Hudson MD) Urinary retention (Acute) Constipation (Acute) Subjective: No further chest pain. Constipation. Urinary retention, which is chronic issue. Vitals/I&O's: Vital Signs Temp Pulse Resp BP Pulse Ox 36.6 C 64 20 H 121/65 H 95 07/17/18 07:05 07/17/18 10:00 07/17/18 07:05 07/17/18 07:05 07/17/18 07:05 Oxygen Delivery Method Room Air Weight: 61.6 kg Body Mass Index (BMI) 27.3 Intake and Output for Last 24 Hours 07/15/18 07/16/18 07/17/18 23:59 23:59 23:59 Intake Total 480 / 480 240 / 240 480 / 480 Balance 480 / 480 240 / 240 480 / 480 General: Alert, Cooperative, No apparent distress HEENT: Atraumatic, Normocephalic Neurological: Coordination normal, Gait narrow based and stable Psych/Mental Status: Normal Affect, Appropriate Current Medications Acetaminophen (Tylenol) 650 mg PO Q6H PRN PRN PRN Reason: PAIN Aspirin (Aspirin, Baby) 81 mg PO DAILY@0800 [facility] Last Admin: 07/17/18 08:11 Dose: 81 mg Atorvastatin Calcium (Lipitor) 20 mg PO QHS [facility] Last Admin: 07/16/18 21:53 Dose: 20 mg Bisacodyl (Dulcolax) 10 mg RECTAL .PRN X 1 PRN PRN Reason: Constipation Calcium Carbonate (Tums) 500 mg PO Q4H PRN PRN PRN Reason: INDIGESTION Last Admin: 07/14/18 21:34 Dose: 500 mg Enoxaparin Sodium (Lovenox) 40 mg SC DAILY@0600 [facility] Last Admin: 07/17/18 05:40 Dose: 40 mg Fentanyl (Duragesic Patch) 12 mcg TRANSDERM. Q72H [facility] Last Admin: 07/17/18 10:05 Dose: 12 mcg Gabapentin (Neurontin) 300 mg PO TIDCM [facility] Last Admin: 07/17/18 11:18 Dose: 300 mg Hydrochlorothiazide (Hctz) 25 mg PO DAILY [facility] Last Admin: 07/17/18 08:11 Dose: 25 mg Magnesium Hydroxide (Milk Of Magnesia) 30 ml PO .PRN X 1 PRN PRN Reason: Constipation Last Admin: 07/11/18 17:08 Dose: 30 ml Nicotine (Nicoderm Cq (Pbkc)) 7 mg TRANSDERM. DAILY [facility] Last Admin: 07/17/18 10:04 Dose: 7 mg Oxycodone HCl (Oxyir) 5 - 10 mg PO Q4H PRN PRN PRN Reason: PAIN Last Admin: 07/17/18 11:18 Dose: 10 mg Pantoprazole Sodium (Protonix) 40 mg PO DAILY [facility] Last Admin: 07/17/18 08:11 Dose: 40 mg Polyethylene Glycol (Miralax) 17 gm PO DAILY PRN PRN Reason: Constipation Senna/Docusate Sodium (Senokot-S, Shelia-Colace) 2 tablet PO BID [facility] Last Admin: 07/17/18 08:11 Dose: 2 tablet Sodium Chloride () 5 - 30 ml IV UD PRN PRN Reason: SALINE FLUSH Last Admin: 07/13/18 06:05 Dose: 10 ml Tamsulosin HCl (Flomax) 0.4 mg PO DAILY@1730 [facility] Medical Necessity - Tobacco Use Smoking Status: Heavy Smoker (>10/day) Tobacco Use: Cigarettes Assessment/Plan All Active Problems (Last Updated 07/05/18 @ 12:55 by Howard Hudson MD) Urinary retention (Acute) Chest pain (Resolved) dyspnea (Acute) PND (post-nasal drip) (Acute) Hand, foot and mouth disease (Acute) Sacroiliitis (Acute) Acute right hip pain (Acute) Constipation (Acute) 1. diaphoresis: * resolved, may be due to medications * CTA negative for PE * may be vasovagal. 2. left calf tenderness * likely 2/2 muscle strain * duplex negative 3. s/p L2-3 microdiscectomy * continue with rehab services * follow up with Dr. Loza as outpt 4. DVT proph: * LMWH Code Visit Inpatient E&M: 44755 Subs Hosp L1
[2018-07-17] MEDS: Tamsulosin HCl 0.4 MG Capsule PO (17:25)
[2018-07-17 20:32] VITALS: BP 119/60; PULSE 60; RESP 18; TEMP 36.4; O2SAT 96
[2018-07-17] MEDS: Atorvastatin Calcium 20 MG Tablet PO (20:35)
[2018-07-17 20:45] VITALS: PULSE 60; RESP 18
[2018-07-18] MEDS: oxyCODONE 5 MG Tablet PO ×4 (03:26→18:12)
[2018-07-18] MEDS: Enoxaparin 40 MG/0.4 ML Syringe SC (06:14)
[2018-07-18 07:00] VITALS: BP 118/50; PULSE 59; RESP 20; TEMP 36.6; O2SAT 98
[2018-07-18] MEDS: hydroCHLOROthiazide 25 MG Tablet PO (08:13)
[2018-07-18] MEDS: Pantoprazole Sodium 40 MG Tablet PO (08:13)
[2018-07-18] MEDS: Aspirin 81 MG TAB.CHEW PO (08:13)
[2018-07-18] MEDS: Senna/Docusate Sodium 1 Tablet 2 TABLET PO ×2 (08:13→20:18)
[2018-07-18] MEDS: Gabapentin 300 MG Capsule PO ×3 (08:13→18:11)
--- NOTE | 2018-07-18 12:17 | PN.NEURO_ITS ---
Patient Problems: Active and Suspected Problems (Last Updated 07/05/18 @ 12:55 by Howard Hudson MD) Urinary retention (Acute) Constipation (Acute) Subjective: No issues overnight. Discussed care with nursing staff. Patient complaints of some burning in the urine with flank pain. - Physical Exam General: Alert HEENT: Normocephalic Neck: Supple Lungs: Normal air movement Cardiovascular: Normal S1, Normal S2 Abdomen: Bowel Sounds Present Extremities: No cyanosis Neurological: - - consious, alert, AoAx3, CN 2-12 grossly intact, moves all 4 extremities, denies any sensory loss, no cerebellar signs, Reflexes + B/L B/S/T/K/A, gait deferred Psych/Mental Status: Normal Affect Vital Signs Temp Pulse Resp BP Pulse Ox 97.9 F 59 L 20 H 118/50 L 98 07/18/18 07:00 07/18/18 07:00 07/18/18 07:00 07/18/18 07:00 07/18/18 07:00 Oxygen Delivery Method Room Air Weight: 61.6 kg Body Mass Index (BMI) 27.3 Intake and Output for Last 24 Hours 07/16/18 07/17/18 07/18/18 23:59 23:59 23:59 Intake Total 240 / 240 480 / 480 240 / 240 Balance 240 / 240 480 / 480 240 / 240 Medical Necessity - Tobacco Use Smoking Status: Heavy Smoker (>10/day) Tobacco Use: Cigarettes Assessment/Plan All Active Problems (Last Updated 07/05/18 @ 12:55 by Howard Hudson MD) Urinary retention (Acute) Chest pain (Resolved) dyspnea (Acute) PND (post-nasal drip) (Acute) Hand, foot and mouth disease (Acute) Sacroiliitis (Acute) Acute right hip pain (Acute) Constipation (Acute) 67 M with PMH HTN, HLD, COPD, BPH, LIZA on CPAP, admitted to [facility] on 07/10/2018 with debility s/p microdiscectomy at L2-L3 by Dr. Spain at [facility], for > 3 hrs therapy daily, with a goal of returning back home at or near his prior level of functional independence. Following admission he has been tolerating therapies well. His incision ashleigh are to be removed by surgeon on 07/28/18. Following admission patient had LE venous Dopplers which did not show any DVT, and CTA chest which did not show any PE. Per patient he was diagnosed with BPH, has urinary retention while sitting but not while standing up and per patient he has been recommended surgery/procedure by his urologist (he does not remember the name of the urologist and not further details available at this point). Plan: - Physical therapy for gait and balance - Occupational Therapy for ADLs - As needed analgesics - Bowel protocol - DVT prophylaxis: Amarilis, Zoraida and Sumit Jin - Check UA and renal ultrasound (for burning/pain while urinating and flank pain) - Hx of HTN - continue home medication of HCTZ - Hx HLD - continue Lipitor 20mg at hs - Tobacco Abuse => start on Nicoderm patch 14mg x21 days - Hx BPH => started on Flomax - LIZA - on CPAP at home - continue here on his settings - Hx of COPD - may do Duonebs if needed - Constipation - Senna 2 tabs BID, Miralax BID, and MOM - Pain - continue on home dose of GPN. On Fentanyl patch - GI/DVT prophylaxis - Fall precautions - Further medical management per hospitalist recommendations.
--- NOTE | 2018-07-18 13:17 | US_ITS ---
STUDY: RENAL ULTRASOUND - COMPLETE REASON FOR EXAM: Male, 67 years old. Bilateral flank pain TECHNIQUE: Ultrasound evaluation of the kidneys was performed with real-time and static wilson-scale imaging. COMPARISON: Previous ultrasound of the abdomen of October 20, 2016 FINDINGS: RIGHT KIDNEY: Normal location of the right kidney, which is normal in size. The right kidney measures 12.5 x 5.3 x 5.2 cm. There is a normal cortex of the right kidney. The renal cortex measures 1.6 cm. There is no right renal mass or cyst. There are no right renal calculi. There is no right hydronephrosis. DISTAL RIGHT URETER: There is non-visualization of the distal right ureter. There is no demonstrated right ureterovesical junction calculus. There is a visualized right ureteral jet. LEFT KIDNEY: Normal location of the left kidney, which is normal in size. The left kidney measures 13.2 x 4.9 x 4.8 cm. There is a normal cortex of the left kidney. The renal cortex measures 1.9 cm. There is no left renal mass or cyst. There are no left renal calculi. There is no left hydronephrosis. DISTAL LEFT URETER: There is non-visualization of the distal left ureter. There is no demonstrated left ureterovesical junction calculus. There is a visualized left ureteral jet. BLADDER: The distended urinary bladder has a volume of 246 ml. There is a normal wall thickness of the distended urinary bladder. There is no demonstrated mass within the urinary bladder. There are no demonstrated bladder calculi. The prostate is generous in size, measuring 4.2 x 5.0 x 2.4 cm. US/Kidney and Bladder IMPRESSION: Unremarkable kidneys. The prostate is generous in size. Electronically Signed: Brandan South MD at 16:57 EST , Service support ,
[2018-07-18 15:06] LABS: Bacteria 0 SEEN /hpf (None Seen); Mucous, Urine 0 SEEN /hpf (<or=2+); Red Blood Cells-Urine 0 SEEN /hpf (0-5); Squamous Epithelial Cells - UA 0 SEEN /hpf (0-5); White Blood Cells 0 SEEN /hpf (0-5)
[2018-07-18 16:01] LABS: Color, Urine Yellow (Yellow); Glucose, Dipstick Normal (Normal); Ketone-Dipstick Negative (Negative); Leukocyte Esterase-Dipstick Negative /ul (Negative); Nitrite-Dipstick Negative (Negative); Occult Blood-Urine Negative /ul (Negative); Protein-Dipstick Negative (Negative); Urine Bilirubin Dipstick Negative (Negative); Urine Clarity Clear (Clear); Urine Urobilinogen Normal (Normal)
[2018-07-18] MEDS: Tamsulosin HCl 0.4 MG Capsule PO (18:11)
--- NOTE | 2018-07-18 18:13 | NURSING ---
Dr. Gaston aware of UA and Kub results, nno's at this time.
[2018-07-18 19:04] VITALS: BP 116/60; PULSE 59; RESP 16; TEMP 36.4; O2SAT 98
[2018-07-18] MEDS: Atorvastatin Calcium 20 MG Tablet PO (20:18)
[2018-07-18 22:00] VITALS: PULSE 59; RESP 15; O2SAT 98
[2018-07-19] MEDS: oxyCODONE 5 MG Tablet PO ×2 (04:06→13:53)
[2018-07-19] MEDS: Enoxaparin 40 MG/0.4 ML Syringe SC (05:05)
[2018-07-19 07:57] VITALS: BP 113/55; PULSE 53; RESP 20; TEMP 36.4; O2SAT 95
[2018-07-19] MEDS: Senna/Docusate Sodium 1 Tablet 2 TABLET PO (08:03)
[2018-07-19] MEDS: hydroCHLOROthiazide 25 MG Tablet PO (08:04)
[2018-07-19] MEDS: Gabapentin 300 MG Capsule PO ×3 (08:04→16:54)
[2018-07-19] MEDS: Aspirin 81 MG TAB.CHEW PO (08:04)
[2018-07-19] MEDS: Pantoprazole Sodium 40 MG Tablet PO (08:04)
--- NOTE | 2018-07-19 13:25 | PCM.PN.NEU ---
Patient Problems: Active and Suspected Problems (Last Updated 07/05/18 @ 12:55 by Howard Hudson MD) Urinary retention (Acute) Constipation (Acute) Subjective: No new complaints. Tolerating p.o. Tolerating therapies. No insomnia. Back pain is controlled. - Physical Exam General: Alert, Oriented x3, Cooperative, No apparent distress Neurological: Cranial nerves II-XII grossly intact, Neuro grossly intact Psych/Mental Status: Normal Affect, Alert and oriented to time, place, person, mood and affect Vital Signs Temp Pulse Resp BP Pulse Ox 36.4 C L 53 L 20 H 113/55 L 95 07/19/18 07:57 07/19/18 07:57 07/19/18 07:57 07/19/18 07:57 07/19/18 07:57 Oxygen Delivery Method Room Air Weight: 61.6 kg Body Mass Index (BMI) 27.3 Intake and Output for Last 24 Hours 07/17/18 07/18/18 07/19/18 23:59 23:59 23:59 Intake Total 480 / 480 720 / 720 480 / 480 Balance 480 / 480 720 / 720 480 / 480 Laboratory Tests Past 24 Hrs 07/18/18 14:30 Urine Color Yellow Urine Clarity Clear Urine pH 6.0 Ur Specific [place] 1.010 Urine Protein Negative Urine Glucose (UA) Normal Urine Ketones Negative Urine Occult Blood Negative Urine Nitrite Negative Urine Bilirubin Negative Urine Urobilinogen Normal Ur Leukocyte Esterase Negative Urine RBC 0 SEEN Urine WBC 0 SEEN Ur Squamous Epith Cells 0 SEEN Urine Bacteria 0 SEEN Urine Mucus 0 SEEN Medical Necessity - Tobacco Use Smoking Status: Heavy Smoker (>10/day) Tobacco Use: Cigarettes Assessment/Plan All Active Problems (Last Updated 07/05/18 @ 12:55 by Howard Hudson MD) Urinary retention (Acute) Chest pain (Resolved) dyspnea (Acute) PND (post-nasal drip) (Acute) Hand, foot and mouth disease (Acute) Sacroiliitis (Acute) Acute right hip pain (Acute) Constipation (Acute) Debility status post Microdiscectomy, L2-L3 right surgery. Goal of rehab is quaker of prior level of functional independence. Plan: - Physical therapy for gait and balance - Occupational Therapy for ADLs - As needed analgesics - Bowel protocol - DVT prophylaxis: Lovenox, SCDs and Sumit Hoses - Hx of HTN - continue home medication of HCTZ - Tobacco Abuse => start on Nicoderm patch 14mg x21 days: No evidence of withdrawal at this point - Hx BPH => stable - continue home medication: ultrasound shows enlarged prostate but stable otherwise - Hx HLD - continue Lipitor 20mg at hs - LIZA - on CPAP at home - continue here on his settings - Hx of COPD - may do Duonebs if needed - Constipation - Senna 2 tabs BID, Miralax BID, and MOM and resolved - Neuropathy/pain - continue on home dose of GPN
--- NOTE | 2018-07-19 14:30 | NURSING ---
Patient yelled at [facility] about having to wait to use the restroom on Saturday. Then patient was apologetic to [facility] and stated that it was not the staff's fault today. patient's sister is present and was tearful because patient yelled at his sister when she asked him to stop yelling at the STAY CUTTER. The STAY CUTTER came and got this nurse and I addressed his complaints. He also went on and stating that the unit was short staff yesterday and I proceeded to tell him that the unit was appropriately staffed based on our census. Then he apologized. He also complained that previous shift pulled his curtain and he could not see the white board. I asked if he called to ask the curtain to pulled back he sated, no. I asked if this occurs that the curtain is pulled to far, to ask for the curtain to pulled back to see the white board and that I will pass it along to the next shift. He also stated that he called to be up in the w/c but no one came to put him in it so he can wheel in the hallways. I stated that this nurse answered his call light and when I went right into his room he was on the phone and I asked him to call me when he was off to get up in the w/c. He stated, That's right, I forgot. He proceeded to apologized. I did discuss that physical therapy did give him the approval to be up in his w/c only in the multipurpose room and in hallways. As well as not to self transfer from w/c and can not be allowed to sit in room up in w/c. patient verbalized understanding. Kyleigh Garcia national account director aware and she will address this with patient on Saturday. Patient was updated that Kyleigh will speak with patient on Saturday, he stated, That is not necessary.
[2018-07-19] MEDS: Tamsulosin HCl 0.4 MG Capsule PO (16:54)
--- NOTE | 2018-07-19 18:00 | NURSING ---
Patient did not have any further complaints this shift. patient talkative and smiling. patient was up in w/c multiple times with family present and was off unit before supper with family on ground floor to say bye to sister that was leaving the hospital.
--- NOTE | 2018-07-19 19:13 | NURSING ---
Per therapy, pt is okay to be in W/C self propelling throughout hallways and in MP room. Pt is not allowed to be in W/C while in room and is to call out to staff to for transferring into W/C. Pt verbalized understanding of this.
[2018-07-19] MEDS: Atorvastatin Calcium 20 MG Tablet PO (19:41)
--- NOTE | 2018-07-19 20:15 | NURSING ---
upon doing hs assessment, pt voicing concerns of prior incident today with lashing out at staff. pt apologetic. when this nurse stated, i understand your frustrations. this nurse attempted to proceed with hs assessment. pt became tearful and stating that staff from previous shift did not answer his call light when he called, and had to call x2 to go to the restroom. this nurse told pt that in report, this nurse was told that his call light was answered whenever he had to go to the restroom. pt stated well i asked to get up and get in my wheelchair and they never came. This nurse told pt that in report, nurse from previous shift stated that she walked in to get tray and was going to get pt in wheelchair, but pt was on the phone, so she wanted to come back after the conversation was finished. pt states no one will take me to the bathroom, next time i need to go to the bathroom, i'm not wasting my clothes, i'll shit on your things. this nurse told pt that when he has to use the restroom, put on his call light and staff will immediately assist as long as we are not in another room with a patient. pt states that when you get more people up here, you should have more staff to help the patients. this nurse responded sir, our unit has the appropriate number of staff members for the patients. there are times whena patient requires a little more assistance and there are 2 of us helping. I understand your frustrations, but we will try to assist you as soon as possible when you ring. pt understanding of the situation. this nurse told pt that [facility] L[facility] would take care of the situation and we would do what we can until then. pt understands. pt states there is something in my medications that is making me crazy. its giving me mood swings. this nurse went over all medications with pt and what medications were for. pt states my son went crazy on oxycodone. this nurse asked patient if he had an allergy to oxycodone and pt was unaware of an allergy. this nurse told pt that tylenol 650 can be utilized instead of oxy for pain to see if that helps with his mood. pt agreeable and stated he would call for pain medication when needed. this nurse told pt that we can address his concerns about medication with the dr on saturday. pt understanding.
[2018-07-19] MEDS: Acetaminophen 325 MG Tablet 650 MG PO (21:40)
[2018-07-19 22:00] VITALS: BP 117/66; PULSE 87; RESP 20; TEMP 36.7; O2SAT 95
--- NOTE | 2018-07-20 01:19 | NURSING ---
When checking on pt well being at , pt states I am fine. Voiced no c/o. Encouragement given to call staff for any needs and transfers. Pt agreeable. Approx one hour later, pt talking about possible side effects from oxyir...I'm not myself and I never lash out like I have been - I wonder if it is the meds. Pt states I'm not taking any more oxyir, just the tylenol. Pt also concerned about having to have bm urgently and staff not arriving in time. This RN explained need to stay in bed or chair until staff arrived. RN explained to pt that once PT and OT cleared pt to get up byself (MOD I) that he could then freely go to the bathroom without calling for help. This would only be when PT and OT felt he was safe enough to do so. Pt appears to understand and appears to be agreeable. Pt appears more relaxed at by the end of conversation. JACKERMAN in room with RN during discussion. Pt aware that Christina, nurse community marketing manager will talk also with him on Saturday to answer any questions
--- NOTE | 2018-07-20 02:02 | NURSING ---
Reviewed and agree with LPNs fims and handoff
[2018-07-20] MEDS: Acetaminophen 325 MG Tablet 650 MG PO ×3 (04:02→19:48)
[2018-07-20] MEDS: Enoxaparin 40 MG/0.4 ML Syringe SC (06:48)
[2018-07-20 07:18] VITALS: BP 105/53; PULSE 52; RESP 16; TEMP 36.6; O2SAT 96
[2018-07-20] MEDS: Pantoprazole Sodium 40 MG Tablet PO (07:39)
[2018-07-20] MEDS: Aspirin 81 MG TAB.CHEW PO (07:39)
[2018-07-20] MEDS: hydroCHLOROthiazide 25 MG Tablet PO (07:39)
[2018-07-20] MEDS: Gabapentin 300 MG Capsule PO ×3 (07:39→17:07)
--- NOTE | 2018-07-20 11:29 | NURSING ---
up and ambulated around halls with walker and standby assist today
--- NOTE | 2018-07-20 14:50 | NURSING ---
patient had no complaints this shift. patient talkative and pleasant with staff and patients. patient stated that he does not want to take prn oxyir because he feels that the oxyir is causing him confusion and feeling emotional.
[2018-07-20] MEDS: Tamsulosin HCl 0.4 MG Capsule PO (17:07)
[2018-07-20] MEDS: Atorvastatin Calcium 20 MG Tablet PO (19:47)
[2018-07-20 20:00] VITALS: BP 114/53; PULSE 60; RESP 16; TEMP 36.6; O2SAT 95
--- NOTE | 2018-07-21 01:02 | NURSING ---
REviewed and agree with LPNs fims and handoff
[2018-07-21] MEDS: Acetaminophen 325 MG Tablet 650 MG PO ×4 (02:27→22:28)
[2018-07-21] MEDS: Enoxaparin 40 MG/0.4 ML Syringe SC (06:15)
[2018-07-21] MEDS: Gabapentin 300 MG Capsule PO ×3 (08:51→16:31)
[2018-07-21] MEDS: Aspirin 81 MG TAB.CHEW PO (08:51)
[2018-07-21] MEDS: Pantoprazole Sodium 40 MG Tablet PO (08:51)
[2018-07-21] MEDS: hydroCHLOROthiazide 25 MG Tablet PO (08:51)
[2018-07-21 08:58] VITALS: BP 134/59; PULSE 55; RESP 18; TEMP 36.4; O2SAT 95
--- NOTE | 2018-07-21 09:59 | PCM.PN.NEU ---
Patient Problems: Active and Suspected Problems (Last Updated 07/05/18 @ 12:55 by Howard Hudson MD) Urinary retention (Acute) Constipation (Acute) Subjective: The patient is somewhat upset today about his restrictions but he was addressed in team meeting and it is felt that he can be made modified independent today with discharge to home on Saturday. No new complaints. He wants to discontinue his OxyContin. - Physical Exam General: Alert, Oriented x3, Cooperative Neurological: Cranial nerves II-XII grossly intact Psych/Mental Status: Normal Affect Vital Signs Temp Pulse Resp BP Pulse Ox 36.4 C L 55 L 18 134/59 H 95 07/21/18 08:58 07/21/18 08:58 07/21/18 08:58 07/21/18 08:58 07/21/18 08:58 Oxygen Delivery Method Room Air Weight: 61.6 kg Body Mass Index (BMI) 27.3 Intake and Output for Last 24 Hours 07/19/18 07/20/18 07/21/18 23:59 23:59 23:59 Intake Total 480 / 480 240 / 240 240 / 240 Balance 480 / 480 240 / 240 240 / 240 Current Home Med List Medication Instructions Recorded Confirmed Type Aspirin [Aspirin, Baby] 81 mg PO DAILY@0800 04/12/18 07/10/18 History rosuvastatin 10 mg tablet 10 mg PO DAILY 06/30/18 07/10/18 History Gabapentin [Neurontin] 300 mg PO TIDCM 07/05/18 07/10/18 History Hydrochlorothiazide [Hctz] 25 mg PO QDAY 07/10/18 07/10/18 History Medical Necessity - Tobacco Use Smoking Status: Heavy Smoker (>10/day) Tobacco Use: Cigarettes Assessment/Plan All Active Problems (Last Updated 07/05/18 @ 12:55 by Howard Hudson MD) Urinary retention (Acute) Chest pain (Resolved) dyspnea (Acute) PND (post-nasal drip) (Acute) Hand, foot and mouth disease (Acute) Sacroiliitis (Acute) Acute right hip pain (Acute) Constipation (Acute) Debility status post Microdiscectomy, L2-L3 right surgery. Goal of rehab is confucianist of prior level of functional independence. Plan: - Physical therapy for gait and balance - Occupational Therapy for ADLs - As needed analgesics - Bowel protocol - DVT prophylaxis: Lovenox, SCDs and Sumit Hoses - Hx of HTN - continue home medication of HCTZ - Tobacco Abuse => start on Nicoderm patch 14mg x21 days: No evidence of withdrawal at this point - Hx BPH => stable - continue home medication: ultrasound shows enlarged prostate but stable otherwise - Hx HLD - continue Lipitor 20mg at hs - LIZA - on CPAP at home - continue here on his settings - Hx of COPD - may do Duonebs if needed - Constipation - Senna 2 tabs BID, Miralax BID, and MOM and resolved - Neuropathy/pain - continue on home dose of GPN Plan for DC home on Saturday.
--- NOTE | 2018-07-21 10:09 | DCINST_ITS ---
- Discharge Diagnoses Current Active Problems: Current Active and Chronic Problems (Last Updated 07/05/18 @ 12:55 by Howard Hudson MD) Urinary retention (Acute) Constipation (Acute) Reason(s) for Visit for Discharge Instructions: debility s/p laminectomy You will use the following diet at home:: No restrictions Your food should be the consistency of: Regular Your liquids should be the consistency of: Regular/Thin Discharge Activity: Return to Normal Activity, May Not Drive Weight Bearing Status: Weight bearing as tolerated Lifting Restrictions: 10 lbs Call your doctor if your incision/area has: Continuous Slow Oozing, Sudden Increased Bleeding, Increased Pain/ Swelling Call your doctor if you observe: Fever of 101 or Higher Allergies/Adverse Reactions: Allergies Iodinated Contrast- Oral and IV Dye [Iodinated Contrast Media - IV Dye] Allergy (Verified 07/13/18 11:41) Unknown per patient unsure of reaction had facet spinal block about 15 years ago and per patient his surgeon said to torey iv contrast as allergy. patient was premedicated with 13-hour prep with prednisone before CT of chest with IV contrast on 07/13/2018, no reaction noted after CT. Medications to take at Discharge Aspirin [Aspirin, Baby] 81 mg PO DAILY@0800 04/12/18 rosuvastatin 10 mg tablet 10 mg PO DAILY 06/30/18 Hydrochlorothiazide [Hctz] 25 mg PO QDAY 07/10/18 Acetaminophen [Tylenol Tablet] 650 mg PO Q6H PRN PRN tablet 07/21/18 Gabapentin [Neurontin] 300 mg PO TIDCM #90 cap 07/21/18 Pantoprazole Sodium [Protonix] 40 mg PO DAILY #30 tab 07/21/18 Tamsulosin HCl [Flomax] 0.4 mg PO DAILY@1730 #30 cap 07/21/18 The following prescriptions were given: Pantoprazole Sodium [Protonix] 40 mg PO DAILY #30 tab Tamsulosin HCl [Flomax] 0.4 mg PO DAILY@1730 #30 cap Gabapentin [Neurontin] 300 mg PO TIDCM #90 cap Primary Care Physician: Wade Padilla MD [Primary Care Provider] - Test Results: Test results from this visit will be discussed in further detail at your follow- up appointment, if applicable. Please Follow Up With: Dr. Loza
--- NOTE | 2018-07-21 10:09 | PCM.RU.DC ---
Rehab Discharge Summary DATE OF ADMISSION: 07/10/18 DATE OF DISCHARGE: 07/21/18 - Rehab Diagnosis debility s/p laminectomy Patient Problems: Active and Suspected Problems (Last Updated 07/05/18 @ 12:55 by Howard Hudson MD) Urinary retention (Acute) Constipation (Acute) - Physical Exam General: Alert, Oriented x3, Cooperative, No apparent distress HEENT: PERRLA, EOMI, Normocephalic Neurological: Cranial nerves II-XII grossly intact Psych/Mental Status: Normal Affect Vital Signs Temp Pulse Resp BP Pulse Ox 36.4 C L 55 L 18 134/59 H 95 07/21/18 08:58 07/21/18 08:58 07/21/18 08:58 07/21/18 08:58 07/21/18 08:58 Oxygen Delivery Method Room Air Weight: 61.6 kg Body Mass Index (BMI) 27.3 Intake and Output for Last 24 Hours 07/19/18 07/20/18 07/21/18 23:59 23:59 23:59 Intake Total 480 / 480 240 / 240 240 / 240 Balance 480 / 480 240 / 240 240 / 240 Discharge Diet: No Restrictions Discharge Activity: Return to Normal Activity, May Not Drive Weight Bearing Status: Weight bearing as tolerated Lifting Restrict to (lbs):: 10 Call your doctor if your incision/area has: Continuous Slow Oozing, Sudden Increased Bleeding, Increased Pain/ Swelling Call your doctor if you observe: Fever of 101 or Higher Home Medications: Medications to take at Discharge RX: Aspirin [Aspirin, Baby] 81 mg PO DAILY@0800 04/12/18 rosuvastatin 10 mg tablet 10 mg PO DAILY 06/30/18 RX: Hydrochlorothiazide [Hctz] 25 mg PO QDAY 07/10/18 RX: Acetaminophen [Tylenol Tablet] 650 mg PO Q6H PRN PRN tablet 07/21/18 RX: Gabapentin [Neurontin] 300 mg PO TIDCM #90 cap 07/21/18 RX: Pantoprazole Sodium [Protonix] 40 mg PO DAILY #30 tab 07/21/18 RX: Tamsulosin HCl [Flomax] 0.4 mg PO DAILY@1730 #30 cap 07/21/18 Following Prescrptions Were Given to Patient: RX: Pantoprazole Sodium [Protonix] 40 mg PO DAILY #30 tab RX: Tamsulosin HCl [Flomax] 0.4 mg PO DAILY@1730 #30 cap RX: Gabapentin [Neurontin] 300 mg PO TIDCM #90 cap Primary Care Physician: Wade Padilla MD [Primary Care Provider] - Please Follow Up With: Dr. Loza Disposition: Home Minutes spent on discharge:: 40 Patient Condition:: Good Rehab Course The patient is a 67 year old right handed male who was admitted to the rehab unit for rehabilitation, s/p Microdiscectomy, L2 - L3 right, by Dr. Spain, of [facility], with out complications, he originally was discharged home on 07/08. He was doing well postoperatively and his leg pain was essentially gone. He is admitted today for worsening pain and continued problems with constipation and bloating. He has a PMH of HTN, COPD, BPH, LIZA on CPAP and HLD. He presented to this [facility] with worsening right hip pain and RLE radicular pain. He was then transferred on the to [place] under the care of Dr. Spain for surgical intervention of his L2-3 herniated disk which he had on 07/07. He lives with his spouse in a single story home, he was previously completely functionally independent and is admitted to the rehab unit in order to restore his previous level of functional independence. Therapies were initiated and well-tolerated. He did well. He improved to the extent that he could be discharged home in good condition with outpatient therapies. Meaningful Use Info Meaningful Use Diagnoses (Choose all that apply): None applicable
--- NOTE | 2018-07-21 16:02 | CASEMGMT ---
Addendum entered by Michelle Potter 07/21/18 16:34: Spoke with pt and he would like outpt PT at [facility]. Pt has walker and cane. He will obtain needed bathroom DME at store of choice. LINDA Dunham Original Note: Team meeting held today with pt present. Pt is progressing well in therapy and d/c date has been set for 07/23/18. Pt will be returning home with his . Therapy is recommending outpt PT and pt is agreeable. SW will continue to followup for d/c planning. LINDA Dunham
--- NOTE | 2018-07-21 16:06 | CHAPLAIN ---
Type of Pastoral Visit ___ Initial Visit _x__ Follow-up Visit ___ On-call Visit ___ General Patient Visit ___ Spiritual Assessment ___ Family Conference ___ Bereavement ___ Rapid Response ___ Code Blue ___ Other (describe below) Pastoral Care Referral From _x__ Patient ___ Family ___ Nurse ___ Physician ___ Nuclear Design Engineer ___ Flavor Extractor ___ Other (describe below) Sacrament/Intervention _x__ Active listening ___ Anointing ___ Alevism ___ Bereavement ___ Communion ___ Lawanda exploration ___ ___ Life review _x__ Prayer ___ Reconciliation ___ Sacrament of Sick ___ Supportive presence ___ Wedding ___ Other (describe below) Pastoral Comments patient expressed concerns of bathroom assistance and privacy curtains; this issue has been addressed he says; pt wanted to repeat his health history with surgery at another facility; pt was talkative and animated; pt speaks of great care from therapists and seeing good progress; pt is looking forward to discharge; pt welcomes prayer support and visit of nurse practitioner manager
[2018-07-21] MEDS: Tamsulosin HCl 0.4 MG Capsule PO (16:31)
[2018-07-21 20:00] VITALS: BP 139/66; PULSE 66; RESP 18; TEMP 36.4; O2SAT 95
[2018-07-21] MEDS: Atorvastatin Calcium 20 MG Tablet PO (20:23)
--- NOTE | 2018-07-22 03:39 | NURSING ---
Reviewed and agree with PHP DEVELOPER documentation and FIMs charting.
[2018-07-22] MEDS: Acetaminophen 325 MG Tablet 650 MG PO ×4 (04:34→23:04)
[2018-07-22] MEDS: Enoxaparin 40 MG/0.4 ML Syringe SC (05:05)
[2018-07-22 07:03] VITALS: BP 110/57; PULSE 53; RESP 18; TEMP 36.6; O2SAT 100
[2018-07-22] MEDS: Aspirin 81 MG TAB.CHEW PO (07:48)
[2018-07-22] MEDS: Gabapentin 300 MG Capsule PO ×3 (07:48→16:49)
[2018-07-22] MEDS: Pantoprazole Sodium 40 MG Tablet PO (07:49)
[2018-07-22] MEDS: hydroCHLOROthiazide 25 MG Tablet PO (07:49)
--- NOTE | 2018-07-22 16:31 | CASEMGMT ---
Addendum entered by Lory Miles 07/22/18 16:34: Correction: Discharge date is 07/23/18. Original Note: Social Work Telephone call Juliana Weldon, outpatient physical therapy appointment set up for 07/25/18 @ 9:00am. Order faxed. Spoke with patient in room. Patient agreeable to appointment time and date. Patient reporting to have no further needs at this time. Patient spouse to provide transportation home for patient at time of discharge. Support given. Proposed discharge date: 07/25/18 PLAN: Discharge to home with spouse and outpatient physical therapy. Lory Miles, LINDA, DETAIL ASSEMBLER
[2018-07-22] MEDS: Tamsulosin HCl 0.4 MG Capsule PO (16:49)
[2018-07-22 21:00] VITALS: PULSE 50; RESP 16; O2SAT 99
[2018-07-22 21:01] VITALS: BP 120/48; PULSE 50; RESP 16; TEMP 36.6; O2SAT 99
[2018-07-22] MEDS: Atorvastatin Calcium 20 MG Tablet PO (21:16)
--- NOTE | 2018-07-23 03:57 | NURSING ---
Reviewed and agree with INTEGRATION AIDE documentation and FIMs charting.
[2018-07-23] MEDS: Enoxaparin 40 MG/0.4 ML Syringe SC (05:36)
[2018-07-23] MEDS: Acetaminophen 325 MG Tablet 650 MG PO ×2 (05:36→16:18)
[2018-07-23] MEDS: Aspirin 81 MG TAB.CHEW PO (07:59)
[2018-07-23] MEDS: Pantoprazole Sodium 40 MG Tablet PO (07:59)
[2018-07-23] MEDS: hydroCHLOROthiazide 25 MG Tablet PO (07:59)
[2018-07-23] MEDS: Gabapentin 300 MG Capsule PO ×3 (07:59→16:18)
[2018-07-23 09:49] VITALS: BP 136/69; PULSE 54; RESP 18; TEMP 36.4; O2SAT 97
--- NOTE | 2018-07-23 16:08 | NURSING ---
Patient getting discharged today and expressed concern that he wants to make sure we are not to take out his ashleigh here before he leaves. This nurse called Dr. Loza orthopedic surgeon office and clinical desk staff confirmed that will take out the ashleigh on Saturday at his f/u appt which is the information nursing had here at this hospital. Patient given this information. He verbalized understanding. This nurse told patient his ashleigh to back are intact, no redness noted, no swellling, no drainage. Incision looks WNL.
[2018-07-23] MEDS: Tamsulosin HCl 0.4 MG Capsule PO (16:20)
[2018-07-23 18:45] VITALS: BP 136/69; PULSE 54; RESP 16; TEMP 36.4; O2SAT 97
--- NOTE | 2018-07-23 18:45 | NURSING ---
Patient and verbalized understanding to discharge instructions given, patient received prescriptions from [facility], given instruct on incisional care. l
--- NOTE | 2018-07-23 19:33 | NURSING ---
Grace LEMA and this nurse wasted 12 mcg duragesic patch in RX destroyer.
== END 2018-07-23 18:45 | disposition home or self-care (01) | DRG 561 ==
PROVIDERS: Nurse Practitioner Acute Care; Psychiatry & Neurology Neurology; Admitting Provider Psychiatry & Neurology Neurology; Family Provider Internal Medicine; PCP Internal Medicine; Referring Provider Psychiatry & Neurology Neurology; Visit Provider Internal Medicine
DX: Z47.89 Encounter for other orthopedic aftercare (principal); I10 Essential (primary) hypertension; G47.33 Obstructive sleep apnea (adult) (pediatric); J44.9 Chronic obstructive pulmonary disease, unspecified; E78.5 Hyperlipidemia, unspecified; G62.9 Polyneuropathy, unspecified; F17.210 Nicotine dependence, cigarettes, uncomplicated; M46.1 Sacroiliitis, not elsewhere classified; M51.26 Other intervertebral disc displacement, lumbar region; K59.00 Constipation, unspecified; N40.1 Benign prostatic hyperplasia with lower urinary tract symptoms; R33.8 Other retention of urine
CPT/HCPCS: 36415; 71275; 76770; 80053; 81001; 83735; 84100; 85025; 93970; 97110; 97116; 97162; 97166; 97530; 97535; 99406; Q9967; A4216

== ENCOUNTER → 2018-09-26 13:02 | Outpatient (CLI) | payer MEDICARE, OTHER, SELFPAY ==
[2018-07-29 10:07] VITALS: BMI 27.8
[2018-09-26 13:13] LABS: Bacteria 0 SEEN /hpf (None Seen); Mucous, Urine 0 SEEN /hpf (<or=2+); Red Blood Cells-Urine 0 SEEN /hpf (0-5); Squamous Epithelial Cells - UA 0 SEEN /hpf (0-5); White Blood Cells 0 SEEN /hpf (0-5)
[2018-09-26 14:20] LABS: Color, Urine Yellow (Yellow); Glucose, Dipstick Normal (Normal); Ketone-Dipstick Negative (Negative); Leukocyte Esterase-Dipstick Negative /ul (Negative); Nitrite-Dipstick Negative (Negative); Occult Blood-Urine Negative /ul (Negative); Protein-Dipstick Negative (Negative); Urine Bilirubin Dipstick Negative (Negative); Urine Clarity Clear (Clear); Urine Urobilinogen Normal (Normal)
[2018-09-26 14:26] LABS: Anion Gap 8 (5-15); BUN 12 mg/dL (7-18); Chloride 105 mmol/L (98-107); Creatinine, Serum 0.86 mg/dL (0.70-1.30); EST Glomerular Filtration Rate 94 mL/min (>60); Est Glom Filt Rate - Afr Amer 114 mL/min (>60); Glucose 82 mg/dL (74-106); Potassium 4.2 mmol/L (3.5-5.1); Sodium Level 139 mmol/L (136-145)
[2018-09-26 14:38] LABS: Cholesterol 231 mg/dL (200); High Density Lipoprotein 45 mg/dL; Triglycerides 156 mg/dL; Very Low Density Lipoprotein 31 mg/dL (5-40)
--- OUTSIDE RECORDS SUMMARY | 2018-12-01 03:04 | XMS RPT_ITS ---
:1950 Author Organization [employer] Address [address] [place] [address] Phone Care Team Providers Name Role Phone Cruz'Kunal PA-CGrace Unavailable Reason for Visit Reason For Visit Description Start Date Postop - 1st visit Preliminary reason for visit data, not yet signed by the author as of lower back post L2-L3 Microdiscectomy on 07/06/2018 Preliminary reason for visit data, not yet signed by the author as of Chief Complaint Chief Complaint Description Start Date lower back post L2-L3 Microdiscectomy on 07/06/2018 Preliminary chief complaint data, not yet signed by the author as of Instructions Instruction Description Start Date Please follow-up with Primary Care Physician or Blast Hole Driller for treatment or adjustment of medication regarding elevated blood pressure.Patient advised to follow-up with Primary Care Physician for BMI management. Plan of Care Type Date Detail Patient education \cps-[email or web address]\CPS_PtEducation\ht n.pdf Medications Medication Instructions Start Date Stop Date Generic Name NDC Provider DID NOT BRING DID NOT Grace LIST BRING LIST D'Kunal PA-C Conditions or Problems Problem Name Problem Onset Status Entry Provider Comment Standard Annotate Code Date Date Description S/P lumbar 914628299 Active Grace History of L2-3 microdiscectomy (SNOMED CT) 09/27 10/03 D'Kunal operative PA-C procedure on lumbar spinal structure Allergies, Adverse Reactions, Alerts Observed no known allergies at Social History Concept Description Observation Name Observation Value Units Start Date Alcohol use ETOH USE No Preliminary social history data, not yet signed by the author as of Details of drug DRUG USE No misuse behavior Preliminary social history data, not yet signed by the author as of Unknown if ever SMOK STATUS unknown if ever smoked smoked Preliminary social history data, not yet signed by the author as of Vital Signs Date Name Value Unit Description BMI (Body Mass 28.00 kg/m2 Body Mass Index Index) [Ratio] Preliminary vital sign data, not yet signed by the author as of BP Diastolic 64 mm[Hg] blood pressure, diastolic Preliminary vital sign data, not yet signed by the author as of BP Diastolic 64 mm[Hg] blood pressure, diastolic, second observation Preliminary vital sign data, not yet signed by the author as of BP Systolic 159 mm[Hg] blood pressure, systolic Preliminary vital sign data, not yet signed by the author as of BP Systolic 147 mm[Hg] blood pressure, systolic, second observation Preliminary vital sign data, not yet signed by the author as of Heart Rate 57 /min pulse rate E&M Preliminary vital sign data, not yet signed by the author as of Height 71 [in_us] height E&M Preliminary vital sign data, not yet signed by the author as of Height 180 cm height in centimeters E&M Preliminary vital sign data, not yet signed by the author as of Weight Measured 200 [lb_av] weight E&M Preliminary vital sign data, not yet signed by the author as of Weight Measured 91 kg weight in kilograms E&M Preliminary vital sign data, not yet signed by the author as of Results Date Name Value Unit Range Flag Description Office Visit: Postop - 1st visit, Rm: 1 MEDS REVIEW Done Documentation of current medications (procedure) Preliminary observation data, not yet signed by the author as of Preliminary observation data, not yet signed by the author as of SMOK STATUS unknown if ever Tobacco smoked smoking status NJIS Preliminary observation data, not yet signed by the author as of Clinical Summary: HMSPatientID OOP account number Clinical Summary: Scanned ROS Summary ROS COMM Painful genitourinary system Urination,Frequenent review of systems, Urination comments ROS: Complains genitourinary review of systems, E&M ROS GI COM Heart Gastrointestional Burn,Constipation,Nausea review of systems, ,Diarrhea,Blood In Stool comment ROS: GI Complains ROS gastrointestinal E&M ROS ENDO COM Weight Loss endocrine system, review of, comments ROS ENDO Complains endocrine ROS ROS MSK COMM Pain,Stiffness,Arthritis ROS Musculoskeletal comments ROS:MUSCSKEL Complains ROS musculoskeletal E&M ROSPSYCHCOMM Difficulty Sleeping ROS Psych comment ROS: PSYCH Complains ROS psychiatric E&M ROS_HEME_COM Abnormal Bruising Review of Systems heme/lymphatic comment ROS HEME Complains ROS hematologic/lymphati c E&M ROS SKIN Denies ROS skin E&M ROS ENT COMM Runny Nose,Sore ROS ENT comment Throat,Dentures ROS ENT Complains ROS ENT E&M ROS GEN COMM Chills,Sweats,Fatigue ROS General Comments ROS:GENERAL Complains ROS general E&M ROS_NEUR_COM Numbness,Tingling Review of Systems Neurologic comment ROS: NEURO Complains ROS neurological E&M ROSPULMCOMM Shortness Of ROS Pulmonary Breath,Cough,Wheezing,As comment thma ROS:PULMON Complains ROS pulmonary E&M ROS CARD COM Ankle Swelling,Leg ROS Cardiac: Swelling,Murmur Comments ROS: CARDIAC Complains ROS cardiovascular E&M Procedures Code Procedure Name Date Entry Date G8730 Pain assessment documented as positive - follow-up documented G8427 Current medications documented 4004F-8P Tobacco screening or cessation counseling not performed - unknown reason G8417 BMI documented as above normal parameters - follow-up documented G8950 Blood pressure outside of normal parameters - follow-up documented [id number] Patient Encounter Medications Administered No information available. Immunizations No information available. Advance Directives There may be information available, but it has not been provided by the sender. Assessments There may be information available, but it has not been provided by the sender. Review of Systems There may be information available, but it has not been provided by the sender. Family History There may be information available, but it has not been provided by the sender. History of Past Illness There may be information available, but it has not been provided by the sender. History of Present Illness There may be information available, but it has not been provided by the sender.
--- OUTSIDE RECORDS SUMMARY | 2018-12-01 03:04 | XMS RPT_ITS ---
:1950 Author Organization [employer] Address [address] [place] [address] Phone Care Team Providers Name Role Phone Daniel Spain MD Unavailable Reason for Visit Reason For Visit Description Start Date Postop - subsequent visit Preliminary reason for visit data, not [...] as of Instructions Instruction Description Start Date Patient advised to follow-up with Primary Care Physician for BMI management. Plan of Care Type Date Detail Appointment 10:20 AM Daniel Spain MD, [address] [facility], [place], [address], Pending order MRI lumbar with and without contrast Patient education \cps-sql1\CPS_PtEducation\qu [id number], \cps-sql1\CPS_PtEducation\qu itting_[id number] Medications Medication Instructions Start Stop Generic Name NDC Provider Date Date FLOMAX 0.4 MG 1 cap daily TAMSULOSIN 10547770633 Daniel Quezada CAPS 8 HCL Grabiel GUNDERSON ASPIRIN ADULT 1 tab daily ASPIRIN 26264657966 Daniel Quezada LOW DOSE 81 MG 8 Grabiel GUNDERSON BANNER DID NOT BRING DID NOT BRING Grace LIST 9 LIST D'Kunal PA-C Conditions or Problems Problem Name Problem Onset Status Entry Provider Comment Standard Annotate Code Date Date Description Radiculopathy [id number] Active Daniel M Lumbar of lumbar (SNOMED 09/26 09/26 Grabiel GUNDERSON radiculopathy region CT) 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 Daniel M Spondylolisthesis esis at L4-L5 (SNOMED 09/26 09/[address]) S/P lumbar 211011917 Active Grace History of L2-3 microdiscecto (SNOMED 09/27 10/[address]) PA-C procedure on lumbar spinal structure Allergies, Adverse Reactions, Alerts Allergy Name Reaction Start Date Severity Status Provider Description IODINE - IV patient is unsure Critical Active Daniel M if he is truely Grabiel GUNDERSON allergic to this but would like it listed Social History Concept Description Observation Name Observation Value Units Start Date Current every day SMOK STATUS current everyday smoker smoker Preliminary social history data, not yet signed by the author as of Vital Signs Date Name Value Unit Description BMI (Body Mass 28.00 kg/m2 Body Mass Index Index) [Ratio] Preliminary vital sign data, not yet signed by the author as of BP Diastolic 71 mm[Hg] blood pressure, diastolic Preliminary vital sign data, not yet signed by the author as of BP Systolic 135 mm[Hg] blood pressure, systolic Preliminary vital sign [...] Range Flag Description Office Visit: Postop - subsequent visit, Rm: 22 MEDS REVIEW Done Documentation of current medications (procedure) Preliminary observation data, not yet signed by the author as of SMOK STATUS current everyday Tobacco smoker smoking status NHIS Preliminary observation data, not yet signed by the author as of Preliminary observation data, not yet signed by the author as of Clinical Summary: HMSPatientID OOP account number Procedures Code Procedure Name Date Entry Date CPT-42408 XR LUMBAR 4VWS FLEX/EX G8730 Pain assessment documented as positive - follow-up documented G8427 Current medications documented 4004F-8P Tobacco screening or cessation counseling not performed - unknown reason G8417 BMI documented as above normal parameters - follow-up documented G8783 Blood pressure within normal parameters - no follow-up required [facility]-[id number] Patient Encounter Medications Administered No information available. [...]
--- OUTSIDE RECORDS SUMMARY | 2018-12-01 03:05 | XMS RPT_ITS ---
:1950 Author Organization [place] Support Name Relationship Address Phone [employer] Unavailable [address] + [place] [address] RAFF, TROY Unavailable [address] + [place] [address] [employer] Unavailable [address] + [place] [address] RAFF, TROY Unavailable [address] + [place] [address] [employer] Unavailable [address] + [place] [address] RAFF, TROY Unavailable [address] + [place] [address] [employer] Unavailable [address] + [place] [address] RAFF, TROY Unavailable [address] + [place] [address] [employer] Unavailable [address] + [place] [address] RAFF, TROY Unavailable [address] + [place] [address] [employer] Unavailable [address] + [place] [address] RAFF, TROY Unavailable [address] + [place] [address] [employer] Unavailable [address] + [place] [address] RAFF, TROY Unavailable [address] + [place] [address] [employer] Unavailable [address] + [place] [address] RAFF, TROY Unavailable [address] + [place] [address] [employer] Unavailable [address] + [place] [address] RAFF, TROY Unavailable [address] + [place] [address] [employer] Unavailable [address] + [place] [address] RAFF, TROY Unavailable [address] + [place] [address] [employer] Unavailable [address] + [place] [address] RAFF, TROY Unavailable [address] + [place] [address] [employer] Unavailable [address] + [place] [address] RAFF, TROY Unavailable [address] + [place] [address] [employer] Unavailable [address] + [place] [address] RAFF, TROY Unavailable [address] + [place] [address] [employer] Unavailable [address] + [place] [address] RAFF, TROY Unavailable [address] + [place] [address] [employer] Unavailable [address] + [place] [address] RAFF, TROY Unavailable [address] + [place] [address] [employer] Unavailable [address] + [place] [address] RAFF, TROY Unavailable [address] + [place] [address] [employer] Unavailable [address] + [place] [address] RAFF, TROY Unavailable [address] + [place] [address] [employer] Unavailable [address] + [place] [address] RAFF, TROY Unavailable [address] + [place] [address] [employer] Unavailable [address] + [place] [address] RAFF, TROY Unavailable [address] + [place] [address] [employer] Unavailable [address] + [place] [address] RAFF, TROY Unavailable [address] + [place] [address] [employer] Unavailable [address] + [place] [address] RAFF, TROY Unavailable [address] + [place] [address] [employer] Unavailable [address] + [place] [address] RAFF, TROY Unavailable [address] + [place] [address] [employer] Unavailable [address] + [place] [address] RAFF, TROY Unavailable [address] + [place] [address] [employer] Unavailable [address] + [place] [address] RAFF, TROY Unavailable [address] + [place] [address] [employer] Unavailable [address] + [place] [address] RAFF, TROY Unavailable [address] + [place] [address] [employer] Unavailable [address] + [place] [address] RAFF, TROY Unavailable [address] + [place] [address] [employer] Unavailable [address] + [place] [address] RAFF, TROY Unavailable [address] + [place] [address] [employer] Unavailable [address] + [place] [address] RAFF, TROY Unavailable [address] + [place] [address] [employer] Unavailable [address] + [place] [address] RAFF, TROY Unavailable [address] + [place] [address] [employer] Unavailable [address] + [place] [address] RAFF, TROY Unavailable [address] + [place] [address] [employer] Unavailable [address] + [place] [address] RAFF, TROY Unavailable [address] + [place] [address] [employer] Unavailable [address] + [place] [address] RAFF, TROY Unavailable [address] + [place] [address] [employer] Unavailable [address] + [place] [address] RAFF, TROY Unavailable [address] + [place] [address] [employer] Unavailable [address] + [place] [address] RAFF, TROY Unavailable [address] + [place] [address] [employer] Unavailable [address] + [place] [address] RAFF, TROY Unavailable [address] + [place] [address] [employer] Unavailable [address] + [place] [address] RAFF, TROY Unavailable [address] + [place] [address] [employer] Unavailable [address] + [place] [address] RAFF, TROY Unavailable [address] + [place] [address] Care Team Providers Name Role Phone Chris Scanlon NATURAL SCIENCES MANAGER-C Attending Unavailable Chris Scanlon NATURAL SCIENCES MANAGER-C Referring Unavailable Oleghe, Efewongbe Primary Care Unavailable Daniel Spain Consulting Unavailable Lexii Montoya Attending Unavailable Chris Scanlon NATURAL SCIENCES MANAGER-C Attending Unavailable Oleghe, Efewongbe Referring Unavailable Oleghe, Efewongbe Primary Care Unavailable Chris Scanlon NATURAL SCIENCES MANAGER-C Attending Unavailable Oleghe, Efewongbe Primary Care Unavailable Stephie Dickinson Attending Unavailable Oleghe, Efewongbe Referring Unavailable Yang Abdul Attending Unavailable Yang Abdul Referring Unavailable Oleghe, Efewongbe Primary Care Unavailable Yang Abdul Attending Unavailable Oleghe, Efewongbe Primary Care Unavailable Chris Scanlon NP-Ya Attending Unavailable Oleghe, Efewongbe Referring Unavailable Oleghe, Efewongbe Primary Care Unavailable Josafat Rhodes Attending Unavailable Yang Abdul Referring Unavailable Oleghe, Efewongbe Primary Care Unavailable Ungur Remus Attending Unavailable Ungur, Remus Referring Unavailable Oleghe, Efewongbe Primary Care Unavailable Jeannette Gamez Attending Unavailable Chris Scanlon NATURAL SCIENCES MANAGER-C Attending Unavailable Oleghe, Efewongbe Referring Unavailable Oleghe, Efewongbe Primary Care Unavailable Stephie Dickinson Attending Unavailable Stephie Dickinson Referring Unavailable Oleghe, Efewongbe Primary Care Unavailable Oleghe, Efewongbe Attending Unavailable Oleghe, Efewongbe Referring Unavailable Oleghe, Efewongbe Primary Care Unavailable Oleghe, Efewongbe Attending Unavailable Oleghe, Efewongbe Referring Unavailable Oleghe, Efewongbe Primary Care Unavailable Stephie Dickinson Attending Unavailable Stephie Dickinson Referring Unavailable Oleghe, Efewongbe Primary Care Unavailable Oswaldo La Attending Unavailable Stephie Dickinson Referring Unavailable Oleghe, Efewongbe Attending Unavailable Oleghe, Efewongbe Referring Unavailable Oleghe, Efewongbe Primary Care Unavailable Livan Oconnor D.O. Attending Unavailable Stephie Dickinson Referring Unavailable Howard Cheng Attending Unavailable Oleghe, Efewongbe Referring Unavailable Oleghe, Efewongbe Attending Unavailable Oleghe, Efewongbe Referring Unavailable Oleghe, Efewongbe Primary Care Unavailable Oleghe, Efewongbe Attending Unavailable Oleghe, Efewongbe Referring Unavailable Oleghe, Efewongbe Attending Unavailable Oleghe, Efewongbe Referring Unavailable Oleghe, Efewongbe Primary Care Unavailable Oleghe, Efewongbe Primary Care Unavailable Reno Tesfaye Attending Unavailable Oleghe, Efewongbe Primary Care Unavailable Bruna Torrez Attending Unavailable Chris Scanlon NP-C Attending Unavailable Oleghe, Efewongbe Referring Unavailable Oleghe, Efewongbe Primary Care Unavailable Yazan Coles Attending Unavailable Oleghe, Efewongbe Primary Care Unavailable Howard Hudson Admitting Unavailable Howard Hudson Attending Unavailable Yang Abdul Consulting Unavailable Howard Hudson Admitting Unavailable Howard Hudson Attending Unavailable Oleghe, Efewongbe Primary Care Unavailable Howard Hudson Consulting Unavailable Howard Hudson Admitting Unavailable Oleghe, Efewongbe Primary Care Unavailable Yang Abdul Consulting Unavailable Sushma Ramsey Attending Unavailable Howard Hudson Consulting Unavailable Justin, Michael Admitting Unavailable Justin, Michael Referring Unavailable Oleghe, Efewongbe Primary Care Unavailable Babak Nicholson F Consulting Unavailable Chris Pete Attending Unavailable Justin, Michael Admitting Unavailable KoBabak garcia F Attending Unavailable Justin, Michael Referring Unavailable Oleghe, Efewongbe Primary Care Unavailable Kyleeonitima Babak F Consulting Unavailable Justin, Michael Consulting Unavailable Justin, Michael Admitting Unavailable Cruzito Montoya Attending Unavailable Justin, Michael Referring Unavailable Oleghe, Efewongbe Primary Care Unavailable Kotsonis, Babak F Consulting Unavailable Jopperi, Cruzito Consulting Unavailable Justin, Michael Admitting Unavailable Jopperi, Cruzito Attending Unavailable Margoth, Michael Referring Unavailable Oleghe, Efewongbe Primary Care Unavailable Kotsonis, Babak F Consulting Unavailable Jopperi, Cruzito Consulting Unavailable Margoth, Michael Admitting Unavailable Jopperi, Cruzito Attending Unavailable Justin, Michael Referring Unavailable Olee, Efewongbe Primary Care Unavailable Lyn, Babak F Consulting Unavailable Jopperi, Cruzito Consulting Unavailable Chris Scanlon NATURAL SCIENCES MANAGER-C Attending Unavailable Oleghe, Efewongbe Referring Unavailable Fredo Stuart Attending Unavailable Jopperi, Cruzito Referring Unavailable PROBLEMS PROBLEMS DATE TYPE CONDITION / CODE ATTENDING STATUS SOURCE 07/29/2018 Unknown R30.0 - Dysuria / Chris Scanlon NATURAL SCIENCES MANAGER-C Active [place] R30.0(ICD-10) [facility] Repository 08/07/2018 Unknown M79.661 - Pain in Fredo Stuart Active [place] right lower leg / Community M79.661(ICD-10) Hospital Repository 08/07/2018 Unknown M79.662 - Pain in Fredo Stuart Active [place] left lower leg / Community M79.662(ICD-10) Hospital Repository 06/25/2018 Unknown M54.9 - Dorsalgia, Reno Tesfaye Active [place] unspecified / Community M54.9(ICD-10) Hospital Repository 06/16/2018 Unknown M25.551 - Pain in Oleamairanie, Active [place] right hip / [facility] M25.551(ICD-10) Hospital Repository 05/30/2018 Unknown I10 - Essential Oleghe, Active [place] (primary) [facility] hypertension / Hospital I10(ICD-10) Repository 05/10/2018 Unknown E78.5 - Oleghe, Active [place] Hyperlipidemia, [facility] unspecified / Hospital E78.5(ICD-10) Repository 05/08/2018 Unknown J41.0 - Simple Dickinson, Active [place] chronic bronchitis / [facility] J41.0(ICD-10) Hospital Repository 05/26/2018 Unknown R06.00 - Dyspnea, Livan Brown, Active [place] unspecified / [facility] R06.00(ICD-10) Hospital Repository 05/29/2018 Unknown R06.02 - Shortness Howard Cheng Active [place] of breath / Community R06.02(ICD-10) Hospital Repository 04/13/2018 Unknown R52 - Pain, Yamilkayekaran, Active [place] unspecified / [facility] Hospital Repository 01/09/2018 Unknown E66.9 - Obesity, Scanlon, Chris NATURAL SCIENCES MANAGER-C Active [place] unspecified / Community E66.9(ICD-10) Hospital Repository 12/27/2017 Unknown Z01.810 - Encounter Yang Abdul Active [place] for preprocedural [facility] examination / Repository Z01.810(ICD-10) 01/15/2018 Unknown R00.1 - Bradycardia, Meagan, Josafat Active [place] unspecified / Community R00.1(ICD-10) Hospital Repository 11/05/2017 Unknown G47.33 - Obstructive Dickinson, Active [place] sleep apnea (adult) [facility] (pediatric) / Hospital G47.33(ICD-10) Repository 11/05/2017 Unknown Z72.0 - Tobacco use Dickinson, Active [place] / Z72.0(ICD-10) [facility] Repository 11/05/2017 Unknown R09.82 - Postnasal Dickinson, Active [place] drip / [facility] R09.82(ICD-10) Hospital Repository 10/10/2017 Unknown K64.9 - Unspecified Scanlon, Chris NATURAL SCIENCES MANAGER-C Active [place] hemorrhoids / Community K64.9(ICD-10) Hospital Repository 10/10/2017 Unknown J44.9 - Chronic Scanlon, Chris NATURAL SCIENCES MANAGER-C Active [place] obstructive Community pulmonary disease, Hospital unspecified / Repository J44.9(ICD-10) 10/10/2017 Unknown N40.0 - Benign Scanlon, Chris NATURAL SCIENCES MANAGER-C Active [place] prostatic Community hyperplasia without Hospital lower urinary tract Repository symptoms / N40.0(ICD-10) 10/10/2017 Unknown Z13.29 - Encounter Scanlon, Chris NATURAL SCIENCES MANAGER-C Active [place] for screening for Community other suspected Hospital endocrine disorder / Repository Z13.29(ICD-10) 10/10/2017 Unknown Z12.5 - Encounter Scanlon, Chris NATURAL SCIENCES MANAGER-C Active [place] for screening for Community malignant neoplasm Hospital of prostate / Repository Z12.5(ICD-10) PROCEDURES PROCEDURES No Procedure Records FoundRESULTS RESULTS URINALYSIS, COMPLETE Collected: 09/26/2018 Status: F Source: [place] 1:12 PM [facility] REPOSITORY Order Comment: How was Urine Obtained? WIND TECHNICIAN TO SPECIFY TYPE CODE TESTS RESULT OUT OF RANGE REFERENCE UNITS LAB L400.3000 Yellow COLOR Normal Yellow LAB L400.3050 Clear Normal CLARITY Clear LAB L400.3200 Normal mg/dl Normal GLUCOSE, UR Normal LAB L400.3300 Negative mg/dL Normal BILIRUBIN URINE Negative LAB L400.3400 Negative mg/dl Normal KETONE UR Negative LAB L400.3465 1.002-1.030 Normal SP.GR. DIPSTX 1.010 LAB L400.3550 5.0 - 8.0 pH UR Normal 6.0 LAB L400.3600 Negative mg/dl PROT Normal DIPSTX Negative LAB L400.3700 Normal mg/dl Normal UROBILI Normal LAB L400.3750 Negative Normal NITRITE UR Negative LAB L400.3780 Negative /ul Normal OCCULT BLOOD-UR Negative LAB L400.3800 Negative /ul LEUK Normal ESTERASE Negative LAB L400.4050 0-5 /hpf WBC 0 Normal SEEN LAB L400.4100 0-5 /hpf 0 Normal RBC-UA SEEN LAB L400.4150 0-5 /hpf SQUAM 0 Normal EPI SEEN LAB L400.4300 None Seen /hpf 0 Normal BACTERIA SEEN LAB L400.4350 <or=2+ /hpf 0 Normal MUCUS, URINE SEEN Performed By: #### L400.0001 #### [facility] [address] [place], [place], [address] BASIC METABOLIC Collected: 09/26/2018 Status: F Source: [place] PROFILE (BMP) 1:12 PM [facility] REPOSITORY TYPE CODE TESTS RESULT OUT OF RANGE REFERENCE UNITS LAB L501.0100 74-106 mg/dL Normal GLU 82 Result Comment: Please note revised GLUCOSE reference range effective 2017. LAB L501.1000 7-18 mg/dL Normal BUN 12 LAB L501.1100 0.70-1.30 mg/dL Normal CREAT,SERUM 0.86 Result Comment: The validity of the calculated GFR AND GFRAA in patients over 70 years has not been determined. Clinical correlation is essential. LAB L501.1110 >60 mL/min Normal EST GFR 94 Result Comment: Non- GFR Calc LAB L501.1115 >60 mL/min Normal EST GFR - AA 114 Result Comment: GFR Calc LAB L501.1300 10-20 RATIO Normal BUN/CRE 14.0 LAB L501.2200 8.5-10.1 mg/dL CA Normal 9.0 LAB L501.5300 136-145 mmol/L NA Normal 139 LAB L501.5600 3.5-5.1 mmol/L K Normal 4.2 LAB L501.5900 98-107 mmol/L CL Normal 105 LAB L501.6100 21.0-32.0 mmol/L Normal CO2 26.0 LAB L501.6200 5-15 Normal GAP 8 Performed By: #### L500.2500 #### [facility] [address] [place], [address] LIPID PROFILE Collected: 09/26/2018 Status: F Source: [place] 1:12 PM [facility] REPOSITORY TYPE CODE TESTS RESULT OUT OF RANGE REFERENCE UNITS LAB L501.4900 200 mg/dL High CHOL 231 Result Comment: <200 mg/dL Desirable 200-240 mg/dL Borderline >240 mg/dL High Risk LAB L501.5000 mg/dL Normal TRIG 156 Result Comment: The drugs N-Acetylcysteine and Metamizole may falsely depress this assay. Serum Triglycerides Reference Interval Normal <150 mg/dL Borderline high 150 - 199 mg/dL High 200 - 499 mg/dL Very High > or = 500 mg/dL LAB L501.6400 mg/dL Normal HDL 45 Result Comment: The drugs N-Acetylcysteine and Metamizole may falsely depress this assay. Reference Range HDL <40 mg/dL Low HDL Cholesterol HDL >or= 60 mg/dL High HDL Cholesterol LAB L501.6500 0-130 mg/dL High LDL 155 LAB L501.6600 5-40 mg/dL Normal VLDL 31 Performed By: #### L500.4100 #### [facility] [address] [place], [address] INTERNAL MEDICINE Observed: 08/05/2018 Status: F Source: [place] OFFICE VISIT 11:22 AM [facility] REPOSITORY [facility] [address] [place] [address] [place] [address] OFFICE VISIT Date of Service: 07/29/18 MR#: [id number] Acct: [id number] Name: NAKUL BASSETT Rep #: [id number] : 1950 Provider: Chris Scanlon NP Age/Sex: 67/M [place] [facility] Status: Signed Intake Vital Signs07/29/18 Height 5 ft 10 in Intake Visit Reasons: SCHED BY IP REHAB Chief Complaint: f/u post surgery Is patient in pain?: No Allergies Iodinated Contrast- Oral and IV Dye [Iodinated Contrast Media - IV Dye] Allergy (Verified 07/13/18 11:41) Unknown Medications Aspirin [Aspirin, Baby] 81 mg PO DAILY@0800 04/12/18 [History Confirmed 07/29/18] rosuvastatin 10 mg tablet 10 mg PO DAILY 06/30/18 [History Confirmed 07/10/18] Hydrochlorothiazide [Hctz] 25 mg PO QDAY 07/10/18 [History Confirmed 07/29/18] Acetaminophen [Tylenol Tablet] 650 mg PO Q6H PRN PRN tab 07/21/18 [Rx Confirmed 07/29/18] Pantoprazole Sodium [Protonix] 40 mg PO DAILY #30 tab 07/21/18 [Rx Confirmed 07/29/18] Tamsulosin HCl [Flomax] 0.4 mg PO DAILY@1730 #30 cap 07/21/18 [Rx Confirmed 07/29/18] docusate sodium 50 mg capsule 50 mg PO DAILY 07/29/18 [History Confirmed 07/29/18] fluticasone 50 mcg/actuation blister powder for inhalation 1 inh INHALATION BID 07/29/18 [History Confirmed 07/29/18] nicotine 7 mg/24 hr daily transdermal patch 1 patch TRANSDERMAL Q24H #30 patch 07/29/18 [Rx Confirmed 07/29/18] PFSH Medical History Acute sinusitis (Acute) Asthma with acute exacerbation (Acute) Cough (Acute) Dyspnea (Acute) Hernia (Acute) Wheezing (Acute) Bronchitis (Chronic) COPD (chronic obstructive pulmonary disease) (Chronic) Chronic sinusitis (Chronic) Heart murmur (Chronic) Hyperlipidemia (Chronic) Hypersomnia (Chronic) Tobacco abuse (Chronic) Surgical History History of back surgery (Acute) hammer toe surgery (Acute) H/O knee surgery (Resolved) Right foot operation after an accident (Resolved) Right nostril growth removed (Resolved) ruptured naval (Resolved) Family History Father Lung cancer Uncle Cancer Grandfather Myocardial infarction Grandmother Myocardial infarction Mother Myocardial infarction, Onset Age: 90 Social History Smoking Status: Heavy Smoker (>10/day) alcohol intake: current alcohol intake frequency: a few times a month substance use type: does not use what type of physical activity do you participate in: none HPI HPI Chief Complaint: f/u post surgery Details: NAKUL BASSETT, is a 67 M who presents to the office today for follow-up for recent laminectomy and rehab stay. Patient has past medical history as listed above. On July 07, 2018 patient had laminectomy, Dr. Spain, with short stay at [facility] rehab unit from July 10 - July 21. Patient presents today stating he feels much better, pain is under control with Tylenol and ice. He saw Dr. Spain yesterday who released him from his service. He is receiving physical therapy outpatient and currently using a walker. He does complain of some pain when he urinates he states this is been going on since surgery. He performs adls well at home with minimal assistance and denies any falls or numbness, tingling, or weakness to BLLE. The patient otherwise denies any fever, chills, nausea, vomiting, shortness of breath, chest pain or pressure, palpitations, orthopnea, lower extremity edema, syncope or presyncopal episodes. ROS Const Constitutional: No weight change, body ache, chills, fatigue, sleep problems, fever(s), change in appetite, snoring, weakness, frequent falls, headache(s) or excessive sweating Eyes Eyes: No change in vision, eye pain, light sensitivity or blurry vision ENT ENT: No headache(s), abnormal hearing, ear pain, tinnitus, nasal congestion, sore throat or neck pain Resp Respiratory: No snoring, cough, shortness of breath or wheezing Cardio Cardiology: No excessive sweating, chest pain at rest, chest pain with exertion, shortness of breath, dyspnea on exertion, palpitations, orthopnea or lightheadedness Gastro GI: No abdominal pain, change in bowel habits, constipation, diarrhea, vomiting, nausea/dyspepsia or cramping Genitourinary Male: Positive for other (strong odor to urine); no painful urination, urinary incontinence, urinary frequency, urinary urgency, blood in urine or testicle pain Musc Musculoskeletal: No neck pain, abnormal walking, joint pain, back pain, limited range of motion, numbness, tingling or muscle weakness Skin Skin: No redness, dry skin, itching, lesions, wounds or rash Neuro Neurology: No weakness, frequent falls, headache(s), abnormal hearing, abnormal walking, numbness, tingling, abnormal speech, dizziness or memory loss Psych Psychiatric: No change in appetite, No memory loss, No anxiety, No depression, No Thoughts of harming yourself/Others Endo Endocrine: No fatigue, excessive sweating, cold intolerance, increased thirst/drinking, heat intolerance, flushing or increased hunger Aller/Imm Allergy/Immunologic: No wheezing, itchy eyes, hives or seasonal allergy symptoms Titi/Lymp Hematologic/Lymphatic: No easy bleeding, easy bruising or enlarged lymph nodes Exam Const General: cooperative, comfortable, no acute distress Nutritional Appearance: average body habitus, well nourished Orientation: alert, oriented x3 Limitations: mental status not altered Other: Walker used with ambulation Eyes General: appearance normal, both eyes and all related structures Resp Effort AND Inspection: normal respiratory effort, able to speak in complete sentences, normal respiratory pattern, symmetric chest movement, no audible wheezes, no cough Auscultation: Bilateral: Clear to Auscultation Cardio Palpation: normal PMI Rate: regular rate Heart Sounds: S1 normal, S2 normal, normal S1 and S2, no click, no gallops, no murmurs, no rubs Musc Musculoskeletal: No joint tenderness, decreased ROM or muscle weakness Skin General: no rashes or lesions noted, elasticity normal, turgor normal Lesions: no lesions Rashes: no rashes Wounds: wounds noted (Back incision well approximated no signs or symptoms of infection) Neuro General: alert, awake, oriented x3, CN's II-XI intact bilaterally Speech: speech normal Gait: normal gait Motor: muscle tone normal throughout Extrem General: normal to inspection, normal gait, no edema, no pedal edema Psych Appearance: grossly normal Mental Status: mental status grossly normal Affect: normal affect Attitude: cooperative Thought Process: normal Assessment AND Plan 1. Debility R53.81 Plan Status post recent laminectomy with recent rehab stay. Pain and mobility improving. Patient following with outpatient physical / occupational therapy. Patient continues to use walker with ambulation. denies any recent falls 2. Status post laminectomy Z98.890 Plan See plan above 3. Dysuria R30.0 Plan Ongoing dysuria, patient sees urology. Will check UA to rule out UTI. Discussed signs and symptoms that would require urgent medical attention. Orders Orders: 4. Drug-induced constipation K59.03 Plan Resolved after discontinuing narcotic analgesics. Patient will continue Colace as needed. patient encouraged adequate fluid and fiber intake. 5. Tobacco abuse Z72.0 Plan Patient to continue with attempts at smoking cessation, the nicotine replacement patch was called to his pharmacy. Advised on how to use it. Patient to follow-up in 2 months or sooner if needed Plan Detail Other Medications New: Follow Up 2 months or sooner if needed Coding Level of Care Code Off vis,est,level 3 Diagnoses Debility R53.81 Status post laminectomy Z98.890 Dysuria R30.0 Drug-induced constipation K59.03 Constipation type: drug induced constipation Tobacco abuse Z72.0 08/05/18 1122 <Electronically signed by Chris DEL RIO> Date Chris DEL RIO Cosigner Signature: Date (if applicable) CC: DISCHARGE SUMMARY Observed: 07/23/2018 Status: F Source: [place] 11:38 AM [facility] Medical Records Department [address] [place] [address] Discharge Summary 07/21/18 1009 MR#: [id number] Acct: [id number] Name: NAKUL BASSETT Rep #: [id number] : 1950 67 From: Michael Justin MD PCP: Wade Padilla MD Status: ADM IN Location: [place] [address] Rehab Discharge Summary DATE OF ADMISSION: 07/10/18 DATE OF DISCHARGE: 07/21/18 - Rehab Diagnosis debility s/p laminectomy Patient Problems: Active and Suspected Problems (Last Updated 07/05/18 @ 12:55 by Howard Hudson MD) Urinary retention (Acute) Constipation (Acute) - Physical Exam General: Alert, Oriented x3, Cooperative, No apparent distress HEENT: PERRLA, EOMI, Normocephalic Neurological: Cranial nerves II-XII grossly intact Psych/Mental Status: Normal Affect Vital Signs Temp Pulse Resp BP Pulse Ox 36.4 C L 55 L 18 134/59 H 95 07/21/18 08:58 07/21/18 08:58 07/21/18 08:58 07/21/18 08:58 07/21/18 08:58 Oxygen Delivery Method Room Air Weight: 61.6 kg Body Mass Index (BMI) 27.3 Intake and Output for Last 24 Hours Intake Total 480 / 480 240 / 240 240 / 240 Balance 480 / 480 240 / 240 240 / 240 Discharge Diet: No Restrictions Discharge Activity: Return to Normal Activity, May Not Drive Weight Bearing Status: Weight bearing as tolerated Lifting Restrict to (lbs):: 10 Call your doctor if your incision/area has: Continuous Slow Oozing, Sudden Increased Bleeding, Increased Pain/ Swelling Call your doctor if you observe: Fever of 101 or Higher Home Medications: Medications to take at Discharge RX: Aspirin [Aspirin, Baby] 81 mg PO DAILY@0800 04/12/18 rosuvastatin 10 mg tablet 10 mg PO DAILY 06/30/18 RX: Hydrochlorothiazide [Hctz] 25 mg PO QDAY 07/10/18 RX: Acetaminophen [Tylenol Tablet] 650 mg PO Q6H PRN PRN tablet 07/21/18 RX: Gabapentin [Neurontin] 300 mg PO TIDCM #90 cap 07/21/18 RX: Pantoprazole Sodium [Protonix] 40 mg PO DAILY #30 tab 07/21/18 RX: Tamsulosin HCl [Flomax] 0.4 mg PO DAILY@1730 #30 cap 07/21/18 Following Prescrptions Were Given to Patient: RX: Pantoprazole Sodium [Protonix] 40 mg PO DAILY #30 tab RX: Tamsulosin HCl [Flomax] 0.4 mg PO DAILY@1730 #30 cap RX: Gabapentin [Neurontin] 300 mg PO TIDCM #90 cap Primary Care Physician: Wade Padilla MD [Primary Care Provider] - Please Follow Up With: Dr. Loza Disposition: Home Minutes spent on discharge:: 40 Patient Condition:: Good Rehab Course The patient is a 67 year old right handed male who was admitted to the rehab unit for rehabilitation, s/p Microdiscectomy, L2 - L3 right, by Dr. Spain, of [facility], with out complications, he originally was discharged home on 07/08. He was doing well postoperatively and his leg pain was essentially gone. He is admitted today for worsening pain and continued problems with constipation and bloating. He has a PMH of HTN, COPD, BPH, LIZA on CPAP and HLD. He presented to this [facility] with worsening right hip pain and RLE radicular pain. He was then transferred on the to [place] under the care of Dr. Spain for surgical intervention of his L2-3 herniated disk which he had on 07/07. He lives with his spouse in a single story home, he was previously completely functionally independent and is admitted to the rehab unit in order to restore his previous level of functional independence. Therapies were initiated and well-tolerated. He did well. He improved to the extent that he could be discharged home in good condition with outpatient therapies. Meaningful Use Info Meaningful Use Diagnoses (Choose all that apply): None applicable 07/23/18 1138 <Electronically signed by Michael Justin MD> Date Michael Justin MD Cosigner Signature (if applicable): Date CC: Wade Padilla MD; Michael Justin MD Signed DISCHARGE INSTRUCTION Observed: 07/21/2018 Status: F Source: [place] 10:09 AM [facility] Medical Records Department [address] [place] [address] Instructions for Home/Discharge Instructions 07/21/18 1006 MR#: [id number] Acct: [id number] Name: NAKUL BASSETT Rep #: [id number] : 1950 67 From: Michael Justin MD PCP: Wade Padilla MD Status: ADM IN - Discharge Diagnoses Current Active Problems: Current Active and Chronic Problems (Last Updated 07/05/18 @ 12:55 by Howard Hudson MD) Urinary retention (Acute) Constipation (Acute) Reason(s) for Visit for Discharge Instructions: debility s/p laminectomy You will use the following diet at home:: No restrictions Your food should be the consistency of: Regular Your liquids should be the consistency of: Regular/Thin Discharge Activity: Return to Normal Activity, May Not Drive Weight Bearing Status: Weight bearing as tolerated Lifting Restrictions: 10 lbs Call your doctor if your incision/area has: Continuous Slow Oozing, Sudden Increased Bleeding, Increased Pain/ Swelling Call your doctor if you observe: Fever of 101 or Higher Allergies/Adverse Reactions: Allergies Iodinated Contrast- Oral and IV Dye [Iodinated Contrast Media - IV Dye] Allergy (Verified 07/13/18 11:41) Unknown per patient unsure of reaction had facet spinal block about 15 years ago and per patient his surgeon said to chris iv contrast as allergy. patient was premedicated with 13-hour prep with prednisone before CT of chest with IV contrast on 07/13/2018, no reaction noted after CT. Medications to take at Discharge Aspirin [Aspirin, Baby] 81 mg PO DAILY@0800 04/12/18 rosuvastatin 10 mg tablet 10 mg PO DAILY 06/30/18 Hydrochlorothiazide [Hctz] 25 mg PO QDAY 07/10/18 Acetaminophen [Tylenol Tablet] 650 mg PO Q6H PRN PRN tablet 07/21/18 Gabapentin [Neurontin] 300 mg PO TIDCM #90 cap 07/21/18 Pantoprazole Sodium [Protonix] 40 mg PO DAILY #30 tab 07/21/18 Tamsulosin HCl [Flomax] 0.4 mg PO DAILY@1730 #30 cap 07/21/18 The following prescriptions were given: Pantoprazole Sodium [Protonix] 40 mg PO DAILY #30 tab Tamsulosin HCl [Flomax] 0.4 mg PO DAILY@1730 #30 cap Gabapentin [Neurontin] 300 mg PO TIDCM #90 cap Primary Care Physician: Wade Padilla MD [Primary Care Provider] - Test Results: Test results from this visit will be discussed in further detail at your follow-up appointment, if applicable. Please Follow Up With: Dr. Loza 07/21/18 1009 <Electronically signed by Michael Justin MD> Date Michael Justin MD CC: Wade Padilla MD; Babak Nicholson MD URINALYSIS, COMPLETE Collected: 07/18/2018 Status: F Source: [place] 2:30 PM [facility] Order Comment: Order Date: 07/18/18 How was Urine Obtained? CLEAN CATCH TYPE CODE TESTS RESULT OUT OF RANGE REFERENCE UNITS LAB L400.3000 Yellow COLOR Normal Yellow LAB L400.3050 Clear Normal CLARITY Clear LAB L400.3200 Normal mg/dl Normal GLUCOSE, UR Normal LAB L400.3300 Negative mg/dL Normal BILIRUBIN URINE Negative LAB L400.3400 Negative mg/dl Normal KETONE UR Negative LAB L400.3465 1.002-1.030 Normal SP.GR. DIPSTX 1.010 LAB L400.3550 5.0 - 8.0 pH UR Normal 6.0 LAB L400.3600 Negative mg/dl PROT Normal DIPSTX Negative LAB L400.3700 Normal mg/dl Normal UROBILI Normal LAB L400.3750 Negative Normal NITRITE UR Negative LAB L400.3780 Negative /ul Normal OCCULT BLOOD-UR Negative LAB L400.3800 Negative /ul LEUK Normal ESTERASE Negative LAB L400.4050 0-5 /hpf WBC 0 Normal SEEN LAB L400.4100 0-5 /hpf 0 Normal RBC-UA SEEN LAB L400.4150 0-5 /hpf SQUAM 0 Normal EPI SEEN LAB L400.4300 None Seen /hpf 0 Normal BACTERIA SEEN LAB L400.4350 <or=2+ /hpf 0 Normal MUCUS, URINE SEEN Performed By: #### L400.0001 #### [facility] [address] [place], [address] KIDNEY AND BLADDER Observed: 07/18/2018 Status: F Source: [place] 1:18 PM [facility] Imaging [place] [address] Kidney and Bladder MR#: [id number] Acct: [id number] Name: NAKUL BASSETT Rep #: [id number] : 1950 67 From: Brandan South MD PCP: Wade Padilla MD Status: ADM IN Study: Kidney and Bladder Date of Exam: 07/18/18 Exam# [id number] Ordering Dr: Robi Gaston MD STUDY: RENAL ULTRASOUND - COMPLETE REASON FOR EXAM: Male, 67 years old. Bilateral flank pain TECHNIQUE: Ultrasound evaluation of the kidneys was performed with real-time and static wilson-scale imaging. COMPARISON: Previous ultrasound of the abdomen of October 20, 2016 FINDINGS: RIGHT KIDNEY: Normal location of the right kidney, which is normal in size. The right kidney measures 12.5 x 5.3 x 5.2 cm. There is a normal cortex of the right kidney. The renal cortex measures 1.6 cm. There is no right renal mass or cyst. There are no right renal calculi. There is no right hydronephrosis. DISTAL RIGHT URETER: There is non-visualization of the distal right ureter. There is no demonstrated right ureterovesical junction calculus. There is a visualized right ureteral jet. LEFT KIDNEY: Normal location of the left kidney, which is normal in size. The left kidney measures 13.2 x 4.9 x 4.8 cm. There is a normal cortex of the left kidney. The renal cortex measures 1.9 cm. There is no left renal mass or cyst. There are no left renal calculi. There is no left hydronephrosis. DISTAL LEFT URETER: There is non-visualization of the distal left ureter. There is no demonstrated left ureterovesical junction calculus. There is a visualized left ureteral jet. BLADDER: The distended urinary bladder has a volume of 246 ml. There is a normal wall thickness of the distended urinary bladder. There is no demonstrated mass within the urinary bladder. There are no demonstrated bladder calculi. The prostate is generous in size, measuring 4.2 x 5.0 x 2.4 cm. US/Kidney and Bladder IMPRESSION: Unremarkable kidneys. The prostate is generous in size. Electronically Signed: Brandan South MD at 16:57 EST , Service support , CC: Rabia Gaston MD; Wade Padilla MD Hostel Parent: Signed H AND P W/ COSIGN Observed: 07/15/2018 Status: F Source: [place] 1:14 PM [facility] Medical Records Department [address] [place] [address] H AND P w/ Cosign 07/10/18 1306 MR#: [id number] Acct: [id number] Name: NAKUL BASSETT Rep #: [id number] : 1950 67 From: Keke Knight NATURAL SCIENCES MANAGER-C PCP: Wade Padilla MD Status: ADM IN Location: [place] [address] History of Present Illness Date of Admission: 07/10/18 Chief Complaint: Microdiscectomy, L2-L3 right The patient is a 67 year old right handed male who was admitted to the rehab unit for rehabilitation, s/p Microdiscectomy, L2 - L3 right, by Dr. Spain, of [facility] [place], with out complications, he originally was discharged home on 07/08. He was doing well postoperatively and his leg pain was essentially gone. He is admitted today for worsening pain and continued problems with constipation and bloating. He has a PMH of HTN, COPD, BPH, LIZA on CPAP and HLD. He presented to this [facility] about a week ago with worsening right hip pain and RLE radicular pain. He was then transferred on the to [place] under the care of Dr. Spain for surgical intervention of his L2-3 herniated disk which he had on 07/07. He lives with his spouse in a single story home, he was previously completely functionally independent and is admitted to the rehab unit in order to restore his previous level of functional independence. Past Medical History Past Medical History (Chronic Problems): Chronic Problems (Last Updated 07/05/18 @ 12:55 by Howard Hudson MD) COPD (chronic obstructive pulmonary disease) (Chronic) LIZA (obstructive sleep apnea) (Chronic) Tobacco abuse (Chronic) Hyperlipidemia (Chronic) Peripheral neuropathy (Chronic) Obesity (Chronic) Hemorrhoids (Chronic) BPH (benign prostatic hyperplasia) (Chronic) Chronic bronchitis (Chronic) Carotid artery stenosis (Chronic) Hypertension (Chronic) SOB (shortness of breath) (Chronic) Medical History: Medical History (Last Updated 07/05/18 @ 12:55 by Howard Hudson MD) Acute sinusitis J01.90 Asthma with acute exacerbation J45.901 Cough R05 Dyspnea R06.00 Hernia K46.9 Patient had a mass place for umbilical hernia Wheezing R06.2 Bronchitis J40 COPD (chronic obstructive pulmonary disease) J44.9 Chronic sinusitis J32.9 Heart murmur R01.1 Hyperlipidemia E78.5 Hypersomnia G47.10 Tobacco abuse Z72.0 Allergies Iodinated Contrast- Oral and IV Dye [Iodinated Contrast Media - IV Dye] Allergy (Verified 07/10/18 13:00) Unknown per pt had to lay flat for 8 hours after receiving it years agol Home Medications: Ambulatory Orders Medication Instructions Recorded Aspirin [Aspirin, Baby] 81 mg PO DAILY@0800 04/12/18 Surgical History: Surgical History (Last Updated 07/05/18 @ 12:55 by Howard Hudson MD) hammer toe surgery H/O knee surgery Z98.890 Left arthroscopic x2 Right foot operation after an accident Right nostril growth removed ruptured naval Surgical History: herniorrhaphy, - - Hammertoe, please see above Psychiatric History: No pertinent psych hx Lives: Spouse/ Significant Other Smoking Status: Heavy Smoker (>10/day) Tobacco Use: Cigarettes Alcohol: Occasional Drugs: None Review of Systems Constitutional: Denies: Chills, Fever, Weight Change HEENT: Denies: Head Aches, Sinus Congestion, Sinus Drainage Cardiovascular: Denies: Chest Pain, Palpitations Respiratory: Denies: Cough, Shortness of breath at rest, Sputum production Gastrointestinal: Denies: Abdominal Pain, Nausea, Vomiting Genitourinary: Denies: Dysuria Musculoskeletal: Denies: Joint Pain, Joint Tenderness Skin: Denies: Rash, Wounds Neurological: Denies: Numbness, Tingling, Focal weakness Psychiatric: Denies: Anxiety, Depression, Homicidal Ideations, Suicidal Ideations Hematologic/ Lymphatic: Denies: Easy Bruising, Easy Bleeding VTE Information - Inpt Only VTE Present on Admission: No VTE Mechan Device Prophylaxis: SCD's, Knee High NELSY Hose VTE Pharm Prophylaxis ordered?: Yes - Physical Exam General: Alert, Oriented x3, Cooperative HEENT: Atraumatic, PERRLA, EOMI, Normocephalic Neck: Supple, No JVD, Negative Carotid Bruits Lungs: Clear to auscultation, Normal air movement Cardiovascular: Regular rate, No murmurs Abdomen: Bowel Sounds Present, Soft, Non Tender Extremities: No edema, Capillary Refill Less than 3 Seconds Skin: No rashes, No breakdown Musculoskeletal: No Tenderness to Palpation of Joints or Extremities Neurological: Cranial nerves II-XII grossly intact Psych/Mental Status: Normal Affect, Appropriate Vital Signs Temp Pulse Resp BP Pulse Ox 97.7 F L 60 18 129/66 H 93 07/10/18 12:40 07/10/18 12:40 07/10/18 12:40 07/10/18 12:40 07/10/18 12:40 Oxygen Delivery Method Room Air Weight: 89 kg Body Mass Index (BMI) 27.3 Assessment/Plan All Active Problems (Last Updated 07/05/18 @ 12:55 by Howard Hudson MD) dyspnea (Acute) PND (post-nasal drip) (Acute) Hand, foot and mouth disease (Acute) Sacroiliitis (Acute) Acute right hip pain (Acute) Constipation (Acute) Debility status post Microdiscectomy, L2-L3 right surgery. Goal of rehab is mosque of prior level of functional independence. Plan: - Physical therapy for gait and balance - Occupational Therapy for ADLs - As needed analgesics - Bowel protocol - DVT prophylaxis: Lovenox, SCDs and Nelsy Hoses - Hx of HTN - continue home medication of HCTZ - Tobacco Abuse => start on Nicoderm patch 14mg x21 days - Hx BPH => stable - continue home medication - Hx HLD - continue Lipitor 20mg at hs - LIZA - on CPAP at home - continue here on his settings - Hx of COPD - may do Duonebs if needed - Constipation - Senna 2 tabs BID, Miralax BID, and MOM - Neuropathy/pain - continue on home dose of GPN 07/11/18 1721 <Electronically signed by Keke Knight NATURAL SCIENCES MANAGER-C> Date Keke Knight NATURAL SCIENCES MANAGER-C 07/15/18 1314<Electronically signed by Michael Justin MD> Cosigner Signature (if applicable): Date Michael Justin MD CC: NATURAL SCIENCES MANAGER Keke Knight; Wade Padilla MD; Michael Justin MD Signed VENOUS DUPLEX LOWER Observed: 07/14/2018 Status: F Source: [place] EXTREMITY 12:46 PM [facility] Cardiovascular Services [address] [place] [address] Venous Duplex US - Souleymane Extrem 07/14/18 1130 MR#: [id number] Acct: [id number] Name: NAKUL BASSETT Rep #: [id number] : 1950 67 From: Fredo Stuart MD Attending Dr: Chris Pete DO Status: ADM IN Ordering Dr: Cruzito Montoya DO Date: 07/12/18 Location: Sex: M C Admitted: 07/10/18 Reason For Study: LE Pain RIGHT LEFT GSV is normal. GSV is normal. CFV is compressible, spontaneous, phasic, CFV is compressible, spontaneous, phasic, competent and demonstrates normal competent, and demonstrates normal augmentation. augmentation. FV is compressible, spontaneous, phasic, FV is compressible, spontaneous, phasic, competent and demonstrates normal competent and demonstrates normal augmentation. augmentation. POP V is compressible, spontaneous, phasic, POP V is compressible, spontaneous, phasic, competent and demonstrates normal competent and demonstrates normal augmentation. augmentation. T/P Trunk is compressible. T/P Trunk is compressible. PTV is compressible. PTV is compressible. RT PerV is compressible. LT PerV is compressible. Procedure Exam performed in department. A preliminary report was called and/or faxed to RU Nurse. <> Interpretation Summary No evidence for acute deep venous thrombosis bilateral lower extremities with patent and compressible bilateral great saphenous veins. Ordering Physician: Cruzito Montoya Referring Physician: Wade Padilla Performed By: Nora Cole RVT and Student 07/14/18 1245 Date Fredo Stuart MD CC: Wade Padilla MD; Cruzito Montoya DO; Chris Pete DO; Michael Justin MD Date Dictated: 07/14/18 1130 Date Transcribed: 07/14/18 1245 Hostel Parent: Signed CTA CHEST W/WO Observed: 07/12/2018 Status: F Source: [place] CONTRAST 11:57 AM [facility] Imaging Services [address] [place] [address] CTA Chest W/WO Contrast MR#: [id number] Acct: [id number] Name: NAKUL BASSETT Rep #: [id number] : 1950 M 67 From: Declan Pearson MD PCP: Wade Padilla MD Status: ADM IN Study: CTA Chest W/WO Contrast Date of Exam: 07/13/18 Exam# [id number] Ordering Dr: Cruzito Montoya DO STUDY: CTA CHEST REASON FOR EXAM: Male, 67 years old. Acute substernal chest pain RADIATION DOSAGE (If Supplied By Facility): CTDIvol = ( 13.80 ) mGy, DLP = ( 518.05 ) mGycm TECHNIQUE: The examination was performed with the intravenous administration of 75ML ml of Isovue 370 contrast material. Post-processing of the angiographic images was performed, with multiplanar reformation and 3D reconstruction. Individualized dose optimization techniques were used for this CT. COMPARISON: None. FINDINGS: Normal enhancement of the main pulmonary artery and right and left pulmonary arteries. Normal enhancement of the bilateral peripheral pulmonary arteries. There is no demonstrated pulmonary embolism. Normal thoracic aorta and visualized great vessels. There is no demonstrated aortic dissection. Normal heart and pericardium. Normal mediastinum. Normal hilar regions. There is peribronchial thickening. The lungs are well expanded. Normal pulmonary parenchyma. Normal pleura. Normal chest wall structures. There are degenerative changes of thoracic spine. Normal visualized upper abdomen. CT/CTA Chest W/WO Contrast IMPRESSION: No demonstrated PE, or thoracic aortic aneurysm or dissection Chronic interstitial changes with evidence of chronic bronchitis but no superimposed acute pulmonary process Degenerative bony changes Electronically Signed: Papa Pearson MD at 8:34 EST , Service support , CC: Wade Padilla MD; Cruzito Montoya DO Hostel Parent: Signed CBC W/DIFF, AUTOMATED Collected: 07/11/2018 Status: F Source: [place] 5:00 AM [facility] TYPE CODE TESTS RESULT OUT OF RANGE REFERENCE UNITS LAB L100.1000 4.4-11.0 K/mm3 Normal WBC 6.7 LAB L100.1200 4.6-6.2 M/mm3 Low RBC 4.12 LAB L100.1300 13.0-16.5 g/dl Normal HGB 14.3 LAB L100.1400 40-54 % Normal HCT 41.9 LAB L100.1500 80-94 fL High MCV 101.7 LAB L100.1600 27.0-32.0 pg High MCH 34.7 LAB L100.1700 32-36 g/gl Normal MCHC 34.1 LAB L100.1810 11.6-14.6 % Normal RDW CV 13.5 LAB L100.1820 35.1-43.9 fl High RDW SD 49.4 LAB L100.1900 150-450 K/mm3 Normal PLT 157 LAB L100.2000 6.2-12.0 fl Normal MPV 9.5 LAB L100.2100 47-70 % Normal NEUT% 57.6 LAB L100.2200 19-41 % Normal LY% 29.0 LAB L100.2300 0-10 % High MONO% 11.3 LAB L100.2400 0-5 % Normal EO% 1.5 LAB L100.2500 0-1 % Normal BASO% 0.3 LAB L100.2550 0.0-0.9 % Normal IM GRAN % 0.300 Result Comment: IG% - Immature Granulocytes (promyelocytes, myelocytes and metamyelocytes) > 1% indicates that a LEFT SHIFT is Present. LAB L100.2620 2.0-7.7 X10 3/uL Normal Absolute Neut 3.9 LAB L100.2720 0.83-4.51 X10 3/ul Normal Absolute Lymph 1.95 Performed By: #### L100.0100 #### [facility] [address] [place], [address] COMPREHENSIVE METABOLIC Collected: 07/11/2018 Status: F Source: [facility] 5:00 AM [facility] TYPE CODE TESTS RESULT OUT OF RANGE REFERENCE UNITS LAB L501.0100 74-106 mg/dL Normal GLU 105 Result Comment: Fasting Glucose result from 100 to 125 mg/dL suggests IMPAIRED HOMEOSTASIS per A.D.A. criteria. Please note revised GLUCOSE reference range effective 2017. LAB L501.1000 7-18 mg/dL Normal BUN 16 LAB L501.1100 0.70-1.30 mg/dL Normal CREAT,SERUM 0.78 Result Comment: The validity of the calculated GFR AND GFRAA in patients over 70 years has not been determined. Clinical correlation is essential. LAB L501.1110 >60 mL/min Normal EST GFR 105 Result Comment: Non- GFR Calc LAB L501.1115 >60 mL/min Normal EST GFR - AA 127 Result Comment: GFR Calc LAB L501.1255 ml/min Normal Estimated CRCL 76.35 LAB L501.1300 10-20 RATIO High BUN/CRE 20.5 LAB L501.1500 6.4-8. g/dL Normal 2 T PROT 6.5 LAB L501.1800 3.2-5. g/dL Low 0 ALB 2.8 LAB L501.1950 2.2-4. g/dL Normal 2 GLOB 3.7 LAB L501.2000 0.9-2. RATIO Low 4 A/G 0.8 LAB L501.2200 8.5-10 mg/dL Low .1 CA 8.4 LAB L501.4100 15-37 U/L Low AST 13 LAB L501.4305 45-117 U/L Normal ALK P 47 LAB L501.4405 16-61 U/L Normal ALT 22 LAB L501.4600 0.20-1 mg/dL Normal .00 T BILI 0.70 LAB L501.5300 136-14 mmol/L Low 5 NA 135 LAB L501.5600 3.5-5. mmol/L Normal 1 K 4.1 LAB L501.5900 98-107 mmol/L Normal CL 101 LAB L501.6100 21.0-3 mmol/L Normal 2.0 CO2 27.0 LAB L501.6200 5-15 Normal GAP 7 Performed By: #### L500.4050, L501.2300, L501.5200 #### [facility] [address] [facility] [place], [place], [id number] PHOSPHORUS Collected: 07/11/2018 Status: F Source: [place] 5:00 AM [facility] TYPE CODE TESTS RESULT OUT OF RANGE REFERENCE UNITS LAB L501.2300 2.5-4.9 mg/dL Normal PHOS 3.6 Performed By: #### L500.4050, L501.2300, L501.5200 #### [facility] [address] [place], [place], [id number] MAGNESIUM Collected: 07/11/2018 Status: F Source: [place] 5:00 AM [facility] TYPE CODE TESTS RESULT OUT OF RANGE REFERENCE UNITS LAB L501.5200 1.6-2.6 mg/dL Normal MG 2.0 Performed By: #### L500.4050, L501.2300, L501.5200 #### [facility] [address] [place], [address] DISCHARGE SUMMARY Observed: 07/06/2018 Status: F Source: [place] 9:10 PM [facility] Medical Records Department [address] [facility] [place] [address] Discharge Summary 07/06/18 2100 MR#: [id number] Acct: [id number] Name: NAKUL BASSETT Rep #: [id number] : 1950 67 From: Sushma Ramsey PCP: Wade Padilla MD Status: ADM IN Location: [place] [address] Discharge Date and Diagnosis - Problem List Patient Problems: Active and Suspected Problems (Last Updated 07/05/18 @ 12:55 by Howard Hudson MD) Acute right hip pain (Acute) Constipation (Acute) Date of Admission: 07/05/18 Date of Discharge: 07/06/18 - Primary Discharge Diagnosis Active and Suspected Problems (Last Updated 07/05/18 @ 12:55 by Howard Hudson MD) (1) Acute on chronic right hip pain and right lower extremity radiculopathy pain secondary to Large L2-L3 herniated disc (2) Abdominal discomfort secondary to Acute Constipation (3) HTN (4) HLD (5) LIZA (6) Chronic COPD (7) Tobacco use - Secondary Discharge Diagnosis Chronic Problems (Last Updated 07/05/18 @ 12:55 by Howard Hudson MD) COPD (chronic obstructive pulmonary disease) (Chronic) LIZA (obstructive sleep apnea) (Chronic) Tobacco abuse (Chronic) Hyperlipidemia (Chronic) Peripheral neuropathy (Chronic) Obesity (Chronic) Hemorrhoids (Chronic) BPH (benign prostatic hyperplasia) (Chronic) Chronic bronchitis (Chronic) Carotid artery stenosis (Chronic) Hypertension (Chronic) SOB (shortness of breath) (Chronic) Hospital Course and Treatment Dr. Noriega Orthopedic surgery Operations: None Procedures: None Summary of Care Provided: The patient is a 67 y/o M w/ PMHx: HTN, HLD, LIZA on q HS CPAP, Chronic COPD, Tobacco use who presented to the [facility] ED on 07/05/18 with history of ongoing progressively worsening R hip and RLE radicular pain x 1 months with severe debility and as a result of recently increased narcotics acute constipation. Patient was admitted to [place], bowel regimen initiated w/ CT A/P only notable for constipation, Dr. Noriega orthopedic surgery consulted and evaluation performed w/ MRI lumbar spine performed recently in the office and upon his review noted large L2-L3 herniated disc as etiology for his ongoing pain. Dr. Noriega assisted in arranging transfer to [facility] w/ Orthopedic Surgeon Dr. Spain. Patient discussed transfer recommendations with Dr. Noriega and once amenable patient was transferred with planned surgical intervention. VS: T 97.9, heart rate 64, BP 158/67, respiratory rate 18, 99% on room air. General: Alert, Oriented x3, Cooperative HEENT: Atraumatic, PERRLA, EOMI, Normocephalic Neck: Supple, No JVD, Negative Carotid Bruits Lungs: Clear to auscultation, Normal air movement Cardiovascular: Regular rate, No murmurs Abdomen: Bowel Sounds Present, Soft, Non Tender, Passing Flatus Extremities: No clubbing, No cyanosis, No edema, Capillary Refill Less than 3 Seconds, Tenderness - Patient having severe pain in the right hip and back area on manipulation Skin: No rashes, No breakdown Musculoskeletal: Tenderness Lymphatic: No Cervical, Supraclavicular, or Inguinal Adenopathy Neurological: Cranial nerves II-XII grossly intact, Neuro grossly intact Psych/Mental Status: Normal Affect, Appropriate, Alert and oriented to time, place, person, mood and affect Patient Problems: Active and Suspected Problems (Last Updated 07/05/18 @ 12:55 by Howard Hudson MD) Acute right hip pain (Acute) Constipation (Acute) - Physical Exam Vital Signs Temp Pulse Resp BP Pulse Ox 97.9 F 64 18 158/67 H 99 07/06/18 20:45 07/06/18 20:45 07/06/18 20:45 07/06/18 20:45 07/06/18 15:01 Oxygen Delivery Method Room Air Weight: 196 lb 8 oz Body Mass Index (BMI) 27.3 Intake and Output for Last 24 Hours Intake Total 275 / 275 2474 / 2474 Output Total 3050 / 3050 Balance 275 / 275 -576 / -576 Laboratory Tests Past 24 Hrs Home Medications: Medications to take at Discharge c-pap MISCELLANEOUS 10/10/17 Aspirin [Aspirin, Baby] 81 mg PO DAILY@0800 04/12/18 Walker [Ultra-Light Rollator] 1 ea MC BID #1 ea 04/13/18 hydrochlorothiazide 25 mg tablet 25 mg PO QDAY #90 tab 05/30/18 oxycodone-acetaminophen 5 mg-325 mg tablet 1 tab PO Q6H 06/30/18 rosuvastatin 10 mg tablet 10 mg PO DAILY 06/30/18 Gabapentin [Neurontin] 300 mg PO TIDCM 07/05/18 Sennosides/Docusate Sodium [Docusate Sodium-Sennosides Tab] 1 each PO DAILY 07/05/18 Primary Care Physician: Wade Padilla MD [Primary Care Provider] - Disposition: Acute care Hospital Minutes spent on discharge:: 35 Patient Condition:: Fair Medical Necessity - Tobacco Use Smoking Status: Current every day smoker Tobacco Use: Cigarettes Meaningful Use Info Meaningful Use Diagnoses (Choose all that apply): None applicable Code Visit Inpatient E AND M: 91799 Disch Hosp 07/06/182109 <Electronically signed by Sushma Ramsey > Date Sushma Ramsey Cosigner Signature (if applicable): Date CC: Sushma Ramsey; Wade Padilla MD Signed CONSULTATION Observed: 07/06/2018 Status: F Source: JULIANA 2:36 PM [facility] Medical Records Department [address] [place] [address] Consultation 07/06/18 1424 MR#: [id number] Acct: [id number] Name: NAKUL BASSETT Rep #: [id number] : 1950 67 From: Bill Noriega MD PCP: Wade Padilla MD Status: ADM DEVI Y Location: MS3 [id number] Reason for Consult Date of Consultation: 07/06/18 History of Present Illness: The patient is a 67 year old male that has been having right lower back pain for approximately 1 month. Patient cannot remember one specific injury or cause. He did go back to work about 6 weeks ago. Patient also had been treated for sfmj-xoze-nom-mouth disease he believes in March. Patient's right lower back and buttock pain have radiated to the right lateral hip, groin, with pain down to the right anterior knee. He denies any significant pain below the knee. He does have some numbness going down to the right foot and toes. Patient has been seen by his primary care physician for this. Patient has been seen by Dr. Abdul. MRI of the lumbar spine in hip was performed July 04 at [facility] [place] [facility]. Reports currently not available. Patient states pain started off a month ago as a constant mild ache. Pain has gotten more severe. He has been to the emergency room 4 times for this. Most recently he was there yesterday and was admitted for the first time. Only new complaint was increasing groin pain. Back pain, bowel bladder function have not changed over the past week or 2. patient has not been to physical therapy. He has tried medications at home including Percocet that he has been on several weeks. He developed constipation at about the same time he started using the Percocet. Patient also has been using gabapentin. He has done enemas at home. He had enema yesterday which was successful. He is still passing gas. Patient states his bladder function has not been completely normal. He feels his urinary stream has changed. Patient has not lost control of his urinary function.l he has been on oral steroids with minimal relief. Patient has had injections at the ER that were successful for pain. He denies fever chills nausea vomiting or weight loss. He does have trouble sleeping because of his night pain. He is currently laying on his side. He states his pain was 10 out of 10 yesterday. He states it is almost just as bad now. Despite this he seems to be laying comfortably speaking easily in full sentences. he has used a walker intermittently since his nhgd-fyqo-wep-mouth disease [] Past Medical History Past Medical History (Chronic Problems): Chronic Problems (Last Updated 07/05/18 @ 12:55 by Howard Hudson MD) COPD (chronic obstructive pulmonary disease) (Chronic) LIZA (obstructive sleep apnea) (Chronic) Tobacco abuse (Chronic) Hyperlipidemia (Chronic) Peripheral neuropathy (Chronic) Obesity (Chronic) Hemorrhoids (Chronic) BPH (benign prostatic hyperplasia) (Chronic) Chronic bronchitis (Chronic) Carotid artery stenosis (Chronic) Hypertension (Chronic) SOB (shortness of breath) (Chronic) Medical History: Medical History (Last Updated 07/05/18 @ 12:55 by Howard Hudson MD) Hernia K46.9 Patient had a mass place for umbilical hernia Acute sinusitis J01.90 Asthma with acute exacerbation J45.901 Cough R05 Dyspnea R06.00 Wheezing R06.2 Bronchitis J40 COPD (chronic obstructive pulmonary disease) J44.9 Chronic sinusitis J32.9 Heart murmur R01.1 Hyperlipidemia E78.5 Hypersomnia G47.10 Tobacco abuse Z72.0 Allergies Iodinated Contrast- Oral and IV Dye [Iodinated Contrast Media - IV Dye] Allergy (Verified 07/05/18 09:15) Unknown Home Medications: Ambulatory Orders Medication Instructions Recorded c-pap MISCELLANEOUS 10/10/17 Aspirin [Aspirin, Baby] 81 mg PO DAILY@0800 04/12/18 Surgical History: Surgical History (Last Updated 07/05/18 @ 12:55 by Howard Hudson MD) hammer toe surgery H/O knee surgery Z98.890 Left arthroscopic x2 Right foot operation after an accident Right nostril growth removed ruptured naval Surgical History: herniorrhaphy, - - Ashwiniertoe, please see above Psychiatric History: No pertinent psych hx Lives: Spouse/ Significant Other Smoking Status: Current every day smoker Tobacco Use: Cigarettes Alcohol: Occasional Drugs: None - *Family History Maternal Family History: Family History (Last Reviewed 06/30/18 @ 14:41 by Ysabel Arellano) Father Lung cancer Uncle Cancer Grandfather Myocardial infarction Grandmother Myocardial infarction Mother Myocardial infarction, Onset Age: 90 Patient Problems: Active and Suspected Problems (Last Updated 07/05/18 @ 12:55 by Howard Hudson MD) Acute right hip pain (Acute) Constipation (Acute) Objective: Patient seems to be laying comfortably on his left side. He has pain on palpation to lower lumbar spine and right sacroiliac joint region. He has pain about the right buttock. No significant pain directly over the right greater trochanteric bursa. No warmth or redness or abnormal masses palpated. He had normal sensation about the buttock, and diffusely about the right and left lower extremities. He has grade 5 strength throughout the legs. He has a positive straight leg raise on the right. Positive contralateral straight leg raise on the left. He had normal reflexes at the knees and ankles. 1 beat clonus bilaterally. Negative Babinski signs. No calf pain or swelling. Negative Homans sign. X-rays and CAT scans of the lumbar spine, pelvis, hips reviewed showing no obvious acute fractures or dislocations of the lumbar spine or hips. Minimal degenerative change of the hips. Moderate degenerative change of the lumbar spine. Laboratory work and vital signs reviewed - Physical Exam Vital Signs Temp Pulse Resp BP Pulse Ox 97.8 F 56 L 16 150/62 H 95 07/06/18 08:15 07/06/18 08:15 07/06/18 08:15 07/06/18 08:15 07/06/18 08:15 Oxygen Delivery Method Room Air Weight: 89.131 kg Body Mass Index (BMI) 27.3 Intake and Output for Last 24 Hours Intake Total 275 / 275 2074 / 2074 Output Total 2500 / 2500 Balance 275 / 275 -426 / -426 Laboratory Tests Past 24 Hrs Assessment/Plan All Active Problems (Last Updated 07/05/18 @ 12:55 by Howard Hudson MD) dyspnea (Acute) PND (post-nasal drip) (Acute) Hand, foot and mouth disease (Acute) Sacroiliitis (Acute) Acute right hip pain (Acute) Constipation (Acute) Low back right hip and leg pain probable lumbar radiculopathy I will attempt to review his MRI at the office today. We will try to expedite a copy of the MRI reports making it to [facility] as soon as possible Saturday. I will make Dr. Abdul aware of the patient's hospitalization. he understands I do not do back surgery and Dr. Abdul does not do back surgery. Possible referral for pain management and/or spine surgeon consult may be recommended depending upon clinical course and MRI findings. Continue with current pain medications. Patient can be weightbearing as tolerated with assistance as needed. Walker if needed. 07/06/18 1436 <Electronically signed by Bill Noriega MD> Date Bill Noriega MD Cosigner Signature (if applicable): Date CC: Wade Padilla MD; Yang Abdul DO Signed CBC W/DIFF, AUTOMATED Collected: 07/06/2018 Status: F Source: JULIANA 7:00 AM [facility] REPOS[facility] TYPE CODE TESTS RESULT OUT OF RANGE REFERENCE UNITS LAB L100.1000 4.4-11.0 K/mm3 Normal WBC 5.7 LAB L100.1200 4.6-6.2 M/mm3 Low RBC 4.10 LAB L100.1300 13.0-16.5 g/dl Normal HGB 13.9 LAB L100.1400 40-54 % Normal HCT 42.6 LAB L100.1500 80-94 fL High MCV 103.9 LAB L100.1600 27.0-32.0 pg High MCH 33.9 LAB L100.1700 32-36 g/gl Normal MCHC 32.6 LAB L100.1810 11.6-14.6 % Normal RDW CV 14.0 LAB L100.1820 35.1-43.9 fl High RDW SD 53.0 LAB L100.1900 150-450 K/mm3 Normal PLT 155 LAB L100.2000 6.2-12.0 fl Normal MPV 9.6 LAB L100.2100 47-70 % Normal NEUT% 49.8 LAB L100.2200 19-41 % Normal LY% 38.8 LAB L100.2300 0-10 % Normal MONO% 9.2 LAB L100.2400 0-5 % Normal EO% 1.8 LAB L100.2500 0-1 % Normal BASO% 0.4 LAB L100.2550 0.0-0.9 % Normal IM GRAN % 0.000 Result Comment: IG% - Immature Granulocytes (promyelocytes, myelocytes and metamyelocytes) > 1% indicates that a LEFT SHIFT is Present. LAB L100.2620 2.0-7.7 X10 3/uL Normal Absolute Neut 2.8 LAB L100.2720 0.83-4.51 X10 3/ul Normal Absolute Lymph 2.19 Performed By: #### L100.0100 #### [facility] [address] [place], [address] COMPREHENSIVE METABOLIC Collected: 07/06/2018 Status: F Source: JULIANA PROFIL 7:00 AM [facility] TYPE CODE TESTS RESULT OUT OF RANGE REFERENCE UNITS LAB L501.0100 74-106 mg/dL Normal GLU 100 Result Comment: Fasting Glucose result from 100 to 125 mg/dL suggests IMPAIRED HOMEOSTASIS per A.D.A. criteria. Please note revised GLUCOSE reference range effective 2017. LAB L501.1000 7-18 mg/dL Normal BUN 17 LAB L501.1100 0.70-1.30 mg/dL Normal CREAT,SERUM 0.86 Result Comment: The validity of the calculated GFR AND GFRAA in patients over 70 years has not been determined. Clinical correlation is essential. LAB L501.1110 >60 mL/min Normal EST GFR 94 Result Comment: Non- GFR Calc LAB L501.1115 >60 mL/min Normal EST GFR - AA 113 Result Comment: GFR Calc LAB L501.1255 ml/min Normal Estimated CRCL 88.77 LAB L501.1300 10-20 RATIO Normal BUN/CRE 19.7 LAB L501.1500 6.4-8. g/dL Low 2 T PROT 6.3 LAB L501.1800 3.2-5. g/dL Low 0 ALB 3.0 LAB L501.1950 2.2-4. g/dL Normal 2 GLOB 3.3 LAB L501.2000 0.9-2. RATIO Normal 4 A/G 0.9 LAB L501.2200 8.5-10 mg/dL Low .1 CA 7.9 LAB L501.4100 15-37 U/L Low AST 12 LAB L501.4305 45-117 U/L Normal ALK P 48 LAB L501.4405 16-61 U/L Normal ALT 23 LAB L501.4600 0.20-1 mg/dL Normal .00 T BILI 0.40 LAB L501.5300 136-14 mmol/L Normal 5 NA 140 LAB L501.5600 3.5-5. mmol/L Normal 1 K 3.9 LAB L501.5900 98-107 mmol/L Normal CL 107 LAB L501.6100 21.0-3 mmol/L Normal 2.0 CO2 25.0 LAB L501.6200 5-15 Normal GAP 8 Performed By: #### L500.4050, L501.2300, L501.5200 #### [facility] [address] [place], [address] PHOSPHORUS Collected: 07/06/2018 Status: F Source: JULIANA 7:00 AM [facility] TYPE CODE TESTS RESULT OUT OF RANGE REFERENCE UNITS LAB L501.2300 2.5-4.9 mg/dL Normal PHOS 2.7 Performed By: #### L500.4050, L501.2300, L501.5200 #### [facility] [address] [place], [address] MAGNESIUM Collected: 07/06/2018 Status: F Source: JULIANA 7:00 AM [facility] TYPE CODE TESTS RESULT OUT OF RANGE REFERENCE UNITS LAB L501.5200 1.6-2.6 mg/dL Normal MG 2.6 Performed By: #### L500.4050, L501.2300, L501.5200 #### [facility] [address] [place], [address] VITAMIN B12 Collected: 07/06/2018 Status: F Source: JULIANA 7:00 AM [facility] Order Comment: ok to be drawn with morning labs per Amena on floor TYPE CODE TESTS RESULT OUT OF RANGE REFERENCE UNITS LAB L503.0105 211-911 pg/mL Normal Vitamin B12 234 Performed By: #### L503.0105 #### [facility] [address] [place], [address] HISTORY AND PHYSICAL Observed: 07/05/2018 Status: F Source: JULIANA EXAM 1:07 PM [facility] Medical Records Department [address] [place] [address] History and Physical 07/05/18 1248 MR#: [id number] Acct: [id number] Name: NAKUL BASSETT Rep #: [id number] : 1950 67 From: Howard Hudson MD PCP: Wade Padilla MD Status: ADM DEVI Y Location: [place] [address] Problem List (1) Acute right hip pain Status: Acute (2) Constipation Status: Acute Qualifiers: Constipation type: drug induced constipation Qualified Code(s): K59.03 - Drug induced constipation (3) Hypertension Status: Chronic (4) BPH (benign prostatic hyperplasia) Status: Chronic Qualifiers: Lower urinary tract symptom presence: symptoms present Lower urinary tract symptom detail: urinary frequency Qualified Code(s): N40.1 - Benign prostatic hyperplasia with lower urinary tract symptoms; R35.0 - Frequency of micturition (5) Hyperlipidemia Status: Chronic Qualifiers: Hyperlipidemia type: unspecified Qualified Code(s): E78.5 - Hyperlipidemia, unspecified (6) Tobacco abuse Status: Chronic (7) LIZA (obstructive sleep apnea) Status: Chronic (8) COPD (chronic obstructive pulmonary disease) Status: Chronic Qualifiers: COPD type: unspecified COPD Qualified Code(s): J44.9 - Chronic obstructive pulmonary disease, unspecified History of Present Illness Date of Admission: 07/05/18 Chief Complaint: Right hip pain severe Patient is a 67-year-old white male with known history of hypertension, COPD, BPH, heart murmur, hyperlipidemia, tobacco use, obstructive sleep apnea on CPAP, who has been having right hip pain for over 1 month, on as needed pain medications, coming in with intractable hip pain and constipation. 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 Went to see his primary care orthopedist starting about 2 weeks ago for progressive pack pain and was tried on NSAIDs, steroid injections, and Percocet for increasing pain. Patient states that his pain is 10 out of 10 sharp stabbing with numbness and tingling associated. Increased pain nothing decreased pain sometimes ice packs and hot tub. Patient is also getting relief and sometimes my Percocet and ran out of medications however yesterday. Patient however had an MRI of the back, CT scan today showed some constipation as it was a stone search for differential for the pain. We are asked to admit for further evaluation and care Past Medical History Past Medical History (Chronic Problems): Chronic Problems (Last Updated 07/05/18 @ 12:55 by Howard Hudson MD) COPD (chronic obstructive pulmonary disease) (Chronic) LIZA (obstructive sleep apnea) (Chronic) Tobacco abuse (Chronic) Hyperlipidemia (Chronic) Peripheral neuropathy (Chronic) Obesity (Chronic) Hemorrhoids (Chronic) BPH (benign prostatic hyperplasia) (Chronic) Chronic bronchitis (Chronic) Carotid artery stenosis (Chronic) Hypertension (Chronic) SOB (shortness of breath) (Chronic) Medical History: Medical History (Last Updated 07/05/18 @ 12:55 by Howard Hudson MD) Hernia K46.9 Patient had a mass place for umbilical hernia Acute sinusitis J01.90 Asthma with acute exacerbation J45.901 Cough R05 Dyspnea R06.00 Wheezing R06.2 Bronchitis J40 COPD (chronic obstructive pulmonary disease) J44.9 Chronic sinusitis J32.9 Heart murmur R01.1 Hyperlipidemia E78.5 Hypersomnia G47.10 Tobacco abuse Z72.0 Allergies Iodinated Contrast- Oral and IV Dye [Iodinated Contrast Media - IV Dye] Allergy (Verified 07/05/18 09:15) Unknown Home Medications: Ambulatory Orders Medication Instructions Recorded c-pap MISCELLANEOUS 10/10/17 Aspirin [Aspirin, Baby] 81 mg PO DAILY@0800 04/12/18 Surgical History: Surgical History (Last Updated 07/05/18 @ 12:55 by Howard Hudson MD) hammer toe surgery H/O knee surgery Z98.890 Left arthroscopic x2 Right foot operation after an accident Right nostril growth removed ruptured naval Surgical History: herniorrhaphy, - - Hammertoe, please see above Psychiatric History: No pertinent psych hx Lives: Spouse/ Significant Other Smoking Status: Current every day smoker - Patient smokes half a pack to pack per day for 40 years Tobacco Use: Cigarettes Alcohol: Occasional Drugs: None - *Family History Maternal Family History: Family History (Last Reviewed 06/30/18 @ 14:41 by Ysabel Arellano) Father Lung cancer Uncle Cancer Grandfather Myocardial infarction Grandmother Myocardial infarction Mother Myocardial infarction, Onset Age: 90 Review of Systems Constitutional: Reports: Fatigue Eyes: Denies: Blurred vision, Cataracts, Drainage HEENT: Reports: Difficulty Swallowing - Some sore throat. Denies: Head Aches, Sinus Congestion, Sinus Drainage Cardiovascular: Denies: Chest Pain, Palpitations Respiratory: Denies: Cough, Shortness of breath at rest, Sputum production Gastrointestinal: Denies: Abdominal Pain, Nausea, Vomiting Genitourinary: Reports: Frequency - Has BPH, Hesitancy Musculoskeletal: Reports: Back Pain, Joint Tenderness - Right hip Skin: Denies: Rash, Wounds Neurological: Denies: Numbness, Tingling, Focal weakness Psychiatric: Denies: Anxiety, Depression, Homicidal Ideations, Suicidal Ideations Hematologic/ Lymphatic: Denies: Easy Bruising, Easy Bleeding VTE Information - Inpt Only VTE Present on Admission: Yes VTE Mechan Device Prophylaxis: SCD's VTE Pharm Prophylaxis ordered?: Yes Patient Problems: Active and Suspected Problems (Last Updated 07/05/18 @ 12:55 by Howard Hudson MD) Acute right hip pain (Acute) Constipation (Acute) Subjective: As above - Physical Exam General: Alert, Oriented x3, Cooperative HEENT: Atraumatic, PERRLA, EOMI Oral: No Gingival or Mucosal Lesions/ Ulcerations, Dry Mucosa Neck: Supple, No JVD, Trachea Midline Lungs: No rales, Diminished - Prolonged expiratory phase, Wheezes Cardiovascular: Regular rate, Normal S1, Normal S2, Murmur - Systolic Abdomen: Bowel Sounds Present, Non Tender, Non-Distended, Distended Extremities: No clubbing, No cyanosis, No edema, Tenderness - Patient is tender to palpation as well leg on manipulation, - - Postop surgical changes with cramping of toe Skin: No rashes, No breakdown Musculoskeletal: Tenderness - Positive back pain on tenderness on palpation and manipulation Lymphatic: No Cervical, Supraclavicular, or Inguinal Adenopathy Neurological: Cranial nerves II-XII grossly intact, Neuro grossly intact Psych/Mental Status: Normal Affect, Appropriate, Alert and oriented to time, place, person, mood and affect Vital Signs Temp Pulse Resp BP Pulse Ox 98.1 F 51 L 16 164/65 H 96 07/05/18 09:11 07/05/18 11:03 07/05/18 11:03 07/05/18 11:03 07/05/18 11:03 Oxygen Delivery Method Room Air Weight: 87.997 kg Body Mass Index (BMI) 27.0 Laboratory Tests Past 24 Hrs Assessment/Plan All Active Problems (Last Updated 07/05/18 @ 12:55 by Howard Hudson MD) dyspnea (Acute) PND (post-nasal drip) (Acute) Hand, foot and mouth disease (Acute) Sacroiliitis (Acute) Acute right hip pain (Acute) Constipation (Acute) Patient is a 67-year-old white male with known history of hypertension, COPD, BPH, heart murmur, hyperlipidemia, tobacco use, obstructive sleep apnea on CPAP, who has been having right hip pain for over 1 month, on as needed pain medications, coming in with intractable hip pain and constipation. Acute right hip pain MRI has already been done waiting for read, will consult orthopedics again PT OT patient has been ambulating with a rolling walker currently. We will give patient as needed oxycodone, morphine, L, await recommendations of PT OT and orthopedics. We will try to treat patient's pain aggressively as possible and monitor recommendations of orthopedics. Constipation Patient likely has constipation secondary to pain medications. We will give MiraLAX, Colace, Dulcolax suppository and Fleet enemas as needed. Hypertension Start home medications, as needed hydralazine for blood pressure is probably secondary to pain. BPH (benign prostatic hyperplasia) Was supposed to get a procedure however did not wish it, will start patient on Flomax, which will also help with blood pressure. Hyperlipidemia Continue statin therapy Tobacco abuse Counseled patient to stop smoking, nicotine patch LIZA (obstructive sleep apnea) CPAP at night COPD (chronic obstructive pulmonary disease) PRN DuoNeb's, patient seems to be satting okay Diet cardiac CODE STATUS full DVT heparin SCDs Disposition patient admitted to hospital for further evaluation and care and orthopedic evaluation. Unclear patient's treatment course as we need more information i.e. MRI results for further determination. Chart is dictated with social work supervisor software. Errors may occur in dictation that may change providers meaning. This note was generated with [employer] dictation software. It may contain incorrect words, spelling, and punctuation that were not noted in checking the note before signing. Code Visit OBSV E AND M: 19249 Initial observation care L3 07/05/18 1307 <Electronically signed by Howard Hudson MD> Date Howard Hudson MD Cosigner Signature: Date (if applicable) CC: Wade Padilla MD; Howard Hudson MD Signed EMERGENCY DEPARTMENT Observed: 07/05/2018 Status: F Source: [place] SUMMARY 10:54 AM [facility] Medical Records Department [address] [place] [address] Emergency Department Summary 07/05/18 1049 MR#: [id number] Acct: [id number] Name: NAKUL BASSETT Rep #: [id number] : 1950 67 From: Ida Cruz DO PCP: Wade Padilla MD Status: REG ER - ER Visit Summary Date of Service: 07/05/18 Chief Complaint: [Right hip and groin pain and constipation] History of Present Illness: The patient is a 67 M [presents the emergency department complaint of right hip and groin pain that he has had for at least a month. Patient is currently being seen by orthopedics and had an MRI of his hip and lumbar spine yesterday but he has no results. Patient denies any falls or injuries. Patient denies weakness in the extremities. He denies any saddle anesthesia. Patient states that he is not had a bowel movement in about 10 days. Patient has used enemas but only getting small results. Patient states that the pain at times is positional and he stands while I am in the room with him. Patient denies any trauma to his back or hip. He has not had any fevers.] Physical Examination: HEENT-PERRLA, EOMI. Cranial nerves II through XII grossly intact. TMs clear. Mucous membranes moist. No adenopathy. Cardiovascular-regular rate and rhythm without murmur or ectopy Lungs-clear to auscultation, chest wall stable without crepitus or subcu emphysema Abdomen-normoactive bowel sounds, soft, nontender, no rebound or rigidity, no peritoneal signs. Patient has some mild tenderness in the right groin on palpation however no masses or hernias palpated. Testicles are both descended and nontender. No evidence for torsion. Rectal exam-no masses palpated, no impaction Back exam-no significant tenderness over the thoracic or lumbar spine. Patient has no tenderness over the paraspinal musculature. Patient does have tenderness over the right SI joint. He does have a positive straight leg raise with pain at 30 degrees while laying supine. Deep tendon reflexes are plus 2 out of 4 bilaterally at the patella and Achilles. Patient has normal L5 extension. She has normal sensation to light touch. Extremities-intact 4, normal range of motion, normal pulses, atraumatic]. Patient has no erythema or warmth over of the right hip. And no significant pain noted with logrolling or range of motion at the hip itself. Test Results: [CBC with differential obtained was normal. Chemistries were normal. Urinalysis was normal. CT abdomen pelvis showed evidence for constipation otherwise nothing acute.] Emergency Department Course and Treatment: [She was medicated with Dilaudid and Zofran and had no pain relief with that he was given a second dose of Dilaudid. Patient continues to complain of significant pain.] I do not feel patient has a septic hip. I suspect patient may have a lumbar radiculopathy. Treatment Plan: [Patient will be admitted for pain control and further evaluation of his back and hip pain. Disposition: [Admit] Impression: [Intractable right hip pain-suspect radiculopathy Constipation] This note was generated with [employer]ista dictation software. It may contain incorrect words, spelling, and punctuation that were not noted in review of the chart prior to signing ED Disposition - Plan for ED Patient: Chief Complaint: Other, Pain/Inj Referrals: Wade Padilla MD [Primary Care Provider] - What to do if you have Problems For any increased pain, shortness of breath, bleeding, nausea or vomiting, chest pain, or any unexpected problems, contact your Primary Care Provider. Call [facility] ([phone]) or report to the closest Emergency Room. Call 911 if necessary. 07/05/18 1050 <Electronically signed by Ida Cruz DO> Date Remus Ungkrista DO Cosigner Signature (If Indicated): Date CC: Wade Padilla MD URINALYSIS, COMPLETE Collected: 07/05/2018 Status: F Source: [place] 10:25 AM [facility] Order Comment: Order Date: 07/05/18 How was Urine Obtained? CLEAN CATCH TYPE CODE TESTS RESULT OUT OF RANGE REFERENCE UNITS LAB L400.3000 Yellow COLOR Normal Yellow LAB L400.3050 Clear Normal CLARITY Clear LAB L400.3200 Normal mg/dl Normal GLUCOSE, UR Normal LAB L400.3300 Negative mg/dL Normal BILIRUBIN URINE Negative LAB L400.3400 Negative mg/dl Normal KETONE UR Negative LAB L400.3465 1.002-1.030 Normal SP.GR. DIPSTX 1.015 LAB L400.3550 5.0 - 8.0 pH UR Normal 6.0 LAB L400.3600 Negative mg/dl PROT Normal DIPSTX Negative LAB L400.3700 Normal mg/dl Normal UROBILI Normal LAB L400.3750 Negative Normal NITRITE UR Negative LAB L400.3780 Negative /ul Normal OCCULT BLOOD-UR Negative LAB L400.3800 Negative /ul LEUK Normal ESTERASE Negative LAB L400.4050 0-5 /hpf WBC 0 Normal SEEN LAB L400.4100 0-5 /hpf 0 Normal RBC-UA SEEN LAB L400.4150 0-5 /hpf SQUAM Normal EPI 0-5 SEEN LAB L400.4300 None Seen /hpf 0 Normal BACTERIA SEEN LAB L400.4350 <or=2+ /hpf 0 Normal MUCUS, URINE SEEN Performed By: #### L400.0001 #### [facility] [address] [place], [address] CBC W/DIFF, AUTOMATED Collected: 07/05/2018 Status: F Source: [place] 9:57 AM [facility] TYPE CODE TESTS RESULT OUT OF RANGE REFERENCE UNITS LAB L100.1000 4.4-11.0 K/mm3 Normal WBC 7.6 LAB L100.1200 4.6-6.2 M/mm3 Normal RBC 4.65 LAB L100.1300 13.0-16.5 g/dl Normal HGB 16.3 LAB L100.1400 40-54 % Normal HCT 47.4 LAB L100.1500 80-94 fL High MCV 101.9 LAB L100.1600 27.0-32.0 pg High MCH 35.1 LAB L100.1700 32-36 g/gl Normal MCHC 34.4 LAB L100.1810 11.6-14.6 % Normal RDW CV 14.0 LAB L100.1820 35.1-43.9 fl High RDW SD 52.1 LAB L100.1900 150-450 K/mm3 Normal PLT 173 LAB L100.2000 6.2-12.0 fl Normal MPV 9.3 LAB L100.2100 47-70 % Normal NEUT% 60.2 LAB L100.2200 19-41 % Normal LY% 30.9 LAB L100.2300 0-10 % Normal MONO% 7.0 LAB L100.2400 0-5 % Normal EO% 1.3 LAB L100.2500 0-1 % Normal BASO% 0.3 LAB L100.2550 0.0-0.9 % Normal IM GRAN % 0.300 Result Comment: IG% - Immature Granulocytes (promyelocytes, myelocytes and metamyelocytes) > 1% indicates that a LEFT SHIFT is Present. LAB L100.2620 2.0-7.7 X10 3/uL Normal Absolute Neut 4.6 LAB L100.2720 0.83-4.51 X10 3/ul Normal Absolute Lymph 2.33 Performed By: #### L100.0100 #### [facility] [address] [place] [address]. [place], [place], [id number] BASIC METABOLIC Collected: 07/05/2018 Status: F Source: [place] PROFILE (BMP) 9:57 AM [facility] TYPE CODE TESTS RESULT OUT OF RANGE REFERENCE UNITS LAB L501.0100 74-106 mg/dL Normal GLU 91 Result Comment: Please note revised GLUCOSE reference range effective 2017. LAB L501.1000 7-18 mg/dL High BUN 23 LAB L501.1100 0.70-1.30 mg/dL Normal CREAT,SERUM 0.97 Result Comment: The validity of the calculated GFR AND GFRAA in patients over 70 years has not been determined. Clinical correlation is essential. LAB L501.1110 >60 mL/min Normal EST GFR 82 Result Comment: Non- GFR Calc LAB L501.1115 >60 mL/min Normal EST GFR - AA 100 Result Comment: GFR Calc LAB L501.1255 ml/min Normal Estimated CRCL 78.71 LAB L501.1300 10-20 RATIO High BUN/CRE 23.8 LAB L501.2200 8.5-10 mg/dL Normal .1 CA 8.9 LAB L501.5300 136-14 mmol/L Low 5 NA 134 LAB L501.5600 3.5-5. mmol/L Normal 1 K 4.0 LAB L501.5900 98-107 mmol/L Normal CL 103 LAB L501.6100 21.0-3 mmol/L Normal 2.0 CO2 25.0 LAB L501.6200 5-15 Normal GAP 6 Performed By: #### L500.2500 #### [facility] [address] [facility] [place], [address] ABDOMEN/PELVIS WITHOUT Observed: 07/05/2018 Status: F Source: [place] CONT 9:28 AM [facility] Imaging Services [address] [place] [address] Abdomen/Pelvis without Cont MR#: [id number] Acct: [id number] Name: SCARDEONTE HutchisonNAKUL A Rep #: [id number] : 1950 M 67 From: Cal Ramirez MD PCP: Wade Padilla MD Status: REG ER Study: Abdomen/Pelvis without Cont Date of Exam: 07/05/18 Exam# [id number] Ordering Dr: Ida Cruz DO STUDY: CT ABDOMEN AND PELVIS WITHOUT CONTRAST REASON FOR EXAM: Male, 67 years old. No bowel movement for 10 days, low back pain RADIATION DOSAGE (If Supplied By Facility): CTDIvol = ( 18.62 ) mGy, DLP = ( 907.14 ) mGycm TECHNIQUE: Transaxial images were obtained from the dome of the diaphragm to the symphysis pubis without oral contrast, and without intravenous contrast. Sagittal and coronal images were reconstructed. Individualized dose optimization techniques were used for this CT. COMPARISON: 06/30/2018 FINDINGS: The visualized lung bases are unremarkable. The visualized portions of the heart are within normal limits. Normal liver. Normal gallbladder and extrahepatic biliary system. Normal spleen. Normal pancreas. Normal bilateral adrenal glands. Normal right kidney. Normal left kidney. Normal visualized stomach. Normal small intestine. Probable constipation. The appendix is visualized and appears normal. There is diffuse atherosclerotic calcification of the abdominal aorta, without a demonstrated aneurysm. Normal inferior vena cava. Normal retroperitoneum. Normal urinary bladder. There are prostatic calcifications. Normal abdominal wall. Normal osseous structures. CT/Abdomen/Pelvis without Cont IMPRESSION: Probable constipation. No CT evidence of acute abdominopelvic pathology. No evidence of appendicitis, acute intestinal pathology, or acute obstructive uropathy. Electronically Signed: Cal Ramirez MD at 10:23 EDT Tel , Service support , CC: Wade Padilla MD; Ida Cruz DO Hostel Parent: Signed DISCHARGE INSTRUCTION Observed: 06/30/2018 Status: F Source: [place] 11:30 PM [facility] Medical Records Department [address] [place] [address] Discharge Instruction 06/30/18 1721 MR#: [id number] Acct: [id number] Name: NAKUL BASSETT Rep #: [id number] : 1950 67 From: Yazan Coles MD PCP: Wade Padilla MD Status: DEP ER ED Disposition - Plan for ED Patient: Disposition: Home or Assisted Living Chief Complaint: Back Referrals: Wade Padilla MD [Primary Care Provider] - As soon as possible Additional Instructions: Continue your Percocet for pain. Call follow-up with your primary care physician Dr. Padilla. You will need to have the schedule you an MRI of your hip and if that does not specifically diagnose the cause your pain you may need an MRI of your lower back. What to do if you have Problems For any increased pain, shortness of breath, bleeding, nausea or vomiting, chest pain, or any unexpected problems, contact your Primary Care Provider. Call [facility] ([phone]) or report to the closest Emergency Room. Call 911 if necessary. 06/30/18 3920 <Electronically signed by Yazan Coles MD> Date Yazan Coles MD Cosigner Signature (If Indicated): Date CC: Wade Padilla MD EMERGENCY DEPARTMENT Observed: 06/30/2018 Status: F Source: [place] SUMMARY 11:30 PM [facility] Medical Records Department [address] [place] [address] Emergency Department Summary 06/30/18 1558 MR#: [id number] Acct: [id number] Name: NAKUL BASSETT Rep #: [id number] : 1950 67 From: Yazan Coles MD PCP: Wade Padilla MD Status: DEP ER - ER Visit Summary Date of Service: 06/30/18 Chief Complaint: Right hip pain History of Present Illness: The patient is a 67 M in the ER earlier this morning by the overnight physician. At that time had a CT of his abdomen done which showed no acute abnormality. He states he has had recent LS spine and right hip x-rays which were unremarkable I did review these films and I agree. He is complaining of pain primarily in his right hip radiates down to his right groin. He denies any fall or trauma. No fever. He is on no blood thinners. He does state at times he is tingling or numbness in his right foot but currently that is not the case. He denies any weakness. He denies any bowel or bladder incontinence. He was placed on Percocet for this which is causing some constipation but he did have a bowel movement today. He denies any fever. He denies any weight loss. He denies any prior back surgery. Physical Examination: Well-appearing older male. Vital signs are stable afebrile. H EENT exam unremarkable. Lungs clear to auscultation bilaterally. Heart regular rhythm no murmur. Abdomen soft nontender. Normal bowel sounds no peritoneal signs. Patient is moving all 4 extremities. Neurovascular intact. He has 5 out of 5 renderer strength in both upper extremities. 5 out of 5 dorsi plantar flexion and dorsiflexion in both lower extremities. Normal touch sensation. No cauda equina. No saddle anesthesia. Negative straight leg raise bilaterally. His back is currently nontender both to the spine and paraspinal soft tissues. Negative SI joint tenderness. He does have reproducible pain on his right hip. And is worse with internal rotation of his right hip. Test Results: None done. I did review the patient's recent LS spine films which were unremarkable. In his right hip and pelvis x-ray again both were unremarkable. Emergency Department Course and Treatment: Treated with IM Dilaudid. On repeat exam his pain is improved with IM Dilaudid. Explained to patient that he needs an MRI of his hip if this does not show a specific cause of his hip pain that he needs an MRI of his LS spine. He is frustrated that this can be done today explained to him these are outpatient test and need insurance authorization. I have his primary care physician on page to discuss this with her. Treatment Plan: Continue his Percocet for pain. Follow-up with his primary care physician to get the MRI is ordered of his right hip and/or lumbar spine. Disposition: Discharge Impression: Acute right hip pain of musculoskeletal etiology This note was generated with [employer] dictation software. It may contain incorrect words, spelling, and punctuation that were not noted in review of the chart prior to signing ED Disposition - Plan for ED Patient: Chief Complaint: Back Referrals: Wade Padilla MD [Primary Care Provider] - What to do if you have Problems For any increased pain, shortness of breath, bleeding, nausea or vomiting, chest pain, or any unexpected problems, contact your Primary Care Provider. Call [facility] ([phone]) or report to the closest Emergency Room. Call 911 if necessary. 06/30/18 2330 <Electronically signed by Yazan Coles MD> Date Yazan Coles MD Cosigner Signature (If Indicated): Date CC: Wade Padilla MD INTERNAL MEDICINE Observed: 06/30/2018 Status: F Source: [place] OFFICE VISIT 3:13 PM [facility] Internal Medicine [facility] [place] [address] OFFICE VISIT Date of Service: 06/30/18 MR#: [id number] Acct: [id number] Name: NAKUL BASSETT Rep #: [id number] : 1950 Provider: Chris Scanlon NP Age/Sex: 67/M Location: [facility] Status: Signed Intake Vital Signs06/30/18 Height 5 ft 11 in Intake Visit Reasons: ER FU Chief Complaint: ER FU Is patient in pain?: Yes (right hip, lower back, right leg) Pain scale (1-10): 10 Allergies Iodinated Contrast- Oral and IV Dye [Iodinated Contrast Media - IV Dye] Allergy (Verified 06/30/18 04:02) Unknown Medications c-pap MISCELLANEOUS 10/10/17 [History Confirmed 06/16/18] Aspirin [Aspirin, Baby] 81 mg PO DAILY@0800 04/12/18 [History Confirmed 06/30/18] Walker [Ultra-Light Rollator] 1 ea MC BID #1 ea 04/13/18 [Rx Confirmed 06/30/18] hydrochlorothiazide 25 mg tablet 25 mg PO QDAY #90 tab 05/30/18 [Rx Confirmed 06/30/18] oxycodone-acetaminophen 5 mg-325 mg tablet 1 tab PO Q6H 06/30/18 [History Confirmed 06/30/18] rosuvastatin 10 mg tablet 10 mg PO DAILY 06/30/18 [History Confirmed 06/30/18] [facility] Medical History Hypertension (Chronic) Acute sinusitis (Acute) Asthma with acute exacerbation (Acute) Cough (Acute) Dyspnea (Acute) Wheezing (Acute) Bronchitis (Chronic) COPD (chronic obstructive pulmonary disease) (Chronic) Chronic sinusitis (Chronic) Heart murmur (Chronic) Hyperlipidemia (Chronic) Hypersomnia (Chronic) Tobacco abuse (Chronic) Surgical History hammer toe surgery (Acute) H/O knee surgery (Resolved) Right foot operation after an accident (Resolved) Right nostril growth removed (Resolved) ruptured naval (Resolved) Family History Father Lung cancer Uncle Cancer Grandfather Myocardial infarction Grandmother Myocardial infarction Mother Myocardial infarction, Onset Age: 90 Social History Smoking Status: Current every day smoker alcohol intake: current alcohol intake frequency: a few times a month substance use type: does not use what type of physical activity do you participate in: none HPI HPI Chief Complaint: ER FU Details: NAKUL BASSETT, is a 67 M who presents for a courtesy nurse visit. He was seen in the ER earlier today for back pain and was given morphine. He presents to the office now in a severe 10 out of 10 back pain that radiates to his right lower extremity. He does state that he has an appointment with Dr. Abdul on Saturday, however his pain is out of control and he cannot wait that long. He has been taking Percocet every 4 hour without any relief and is requesting stronger pain control. Patient remains tearful. Informed patient that he could trial taking his anti-inflammatories in conjunction with his Percocet, however patient still concerned over the severity of his pain and will seek medical attention at the emergency department. Brief report called to Skylar charge nurse in [facility] ER ROS Const Constitutional: Positive for headache(s); no weight change, body ache, chills, fatigue, sleep problems, fever(s), change in appetite, snoring, weakness, frequent falls or excessive sweating Eyes Eyes: No change in vision, eye pain, light sensitivity or blurry vision ENT ENT: Positive for headache(s); no abnormal hearing, ear pain, tinnitus, nasal congestion, sore throat or neck pain Resp Respiratory: No snoring, cough, shortness of breath or wheezing Cardio Cardiology: No excessive sweating, chest pain at rest, chest pain with exertion, shortness of breath, dyspnea on exertion, palpitations, orthopnea or lightheadedness Gastro GI: Positive for constipation and blood in stool; no abdominal pain, change in bowel habits, diarrhea, vomiting, nausea/dyspepsia or cramping Genitourinary Male: No painful urination, urinary incontinence, urinary frequency, urinary urgency, blood in urine, testicle pain or other Musc Musculoskeletal: Positive for back pain (lower), numbness (right) and other (pain in the right hip and leg); no neck pain, abnormal walking, joint pain, limited range of motion or tingling Skin Skin: No redness, dry skin, itching, lesions, wounds or rash Neuro Neurology: Positive for headache(s) and numbness (right); no weakness, frequent falls, abnormal hearing, abnormal walking, tingling, abnormal speech, dizziness or memory loss Psych Psychiatric: No change in appetite, No memory loss, No anxiety, No depression, No Thoughts of harming yourself/Others Endo Endocrine: No fatigue, excessive sweating, cold intolerance, increased thirst/drinking, heat intolerance, flushing or increased hunger Aller/Imm Allergy/Immunologic: No wheezing, itchy eyes, hives or seasonal allergy symptoms Titi/Lymp Hematologic/Lymphatic: No easy bleeding, easy bruising or enlarged lymph nodes Coding Level of Care Code No Charge 06/30/18 1513 <Electronically signed by Chris DEL RIO> Date Chris DEL RIO Cosigner Signature: Date (if applicable) CC: EMERGENCY DEPARTMENT Observed: 06/30/2018 Status: F Source: [place] SUMMARY 6:30 AM [facility] Medical Records Department [address] [place] [address] Emergency Department Summary 06/30/18 0503 MR#: [id number] Acct: [id number] Name: NAKUL BASSETT Rep #: [id number] : 1950 67 From: Bruna Torrez MD PCP: Wade Padilla MD Status: REG ER - ER Visit Summary Date of Service: 06/30/18 Chief Complaint: Back pain History of Present Illness: The patient is a 67 M presenting with back pain. He states this has been ongoing for the past month. He was seen in the ED last week for same complaints. He has been on steroids, muscle relaxers, and Percocet. He states he does still have Percocet available to him. He does not believe it is helping. He had no new injury. He states this started after going back to work a month ago. 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 He denies fever. Denies chest pain or shortness of breath. Denies bowel or bladder incontinence. Physical Examination: Vitals are stable. Patient is afebrile. Alert no acute distress. HEENT exam is unremarkable. Neck is supple. Lungs are clear and equal bilaterally. Heart is regular rate and rhythm. Abdomen is soft nontender nondistended. Back: Right paraspinal lumbar muscle tenderness, no midline tenderness Extremities mild anterior right knee tenderness with no effusion. No erythema or warmth. Active full range of motion. Skin is warm and dry. No focal neurologic deficit. Remainder of exam is unremarkable. Emergency Department Course and Treatment: Patient given morphine, Zofran IM. Right knee x-ray shows no acute process. He declined lumbar x-ray. He was given Valium p.o. CT abdomen pelvis without contrast shows no acute process. On reevaluation, patient is resting comfortably. He is advised to follow-up with his primary care physician and his orthopedic surgeon as scheduled. Advised return to ED for worsening complaints. Disposition: Discharge home Impression: Acute on chronic back pain This note was generated with [employer] dictation software. It may contain incorrect words, spelling, and punctuation that were not noted in review of the chart prior to signing ED Disposition - Plan for ED Patient: Chief Complaint: Back Instructions: ED Neck Back Pain General Referrals: Wade Padilla MD [Primary Care Provider] - Yang Abdul DO [STAFF PHYSICIAN] - What to do if you have Problems For any increased pain, shortness of breath, bleeding, nausea or vomiting, chest pain, or any unexpected problems, contact your Primary Care Provider. Call [facility] ([phone]) or report to the closest Emergency Room. Call 911 if necessary. 06/30/18629 <Electronically signed by Bruna Torrez MD> Date Bruna Torrez MD Cosigner Signature (If Indicated): Date CC: Wade Padilla MD DISCHARGE INSTRUCTION Observed: 06/30/2018 Status: F Source: [place] 6:27 AM [facility] Medical Records Department [address] [place] [address] Discharge Instruction 06/30/18625 MR#: [id number] Acct: [id number] Name: NAKUL BASSETT Rep #: [id number] : 1950 67 From: Bruna Torrez MD PCP: Wade Padilla MD Status: REG ER ED Disposition - Plan for ED Patient: Chief Complaint: Back Instructions: ED Neck Back Pain General Referrals: Wade Padilla MD [Primary Care Provider] - Yang Abdul DO [STAFF PHYSICIAN] - What to do if you have Problems For any increased pain, shortness of breath, bleeding, nausea or vomiting, chest pain, or any unexpected problems, contact your Primary Care Provider. Call [facility] ([phone]) or report to the closest Emergency Room. Call 911 if necessary. 06/30/18626 <Electronically signed by Bruna Torrez MD> Date Bruna Torrez MD Cosigner Signature (If Indicated): Date CC: Wade Padilla MD ABDOMEN/PELVIS WITHOUT Observed: 06/30/2018 Status: F Source: [place] CONT 4:46 AM [facility] [facility] Imaging Services [address] [place] [address] Abdomen/Pelvis without Cont MR#: [id number] Acct: [id number] Name: NAKUL BASSETT Rep #: [id number] : 1950 M 67 From: [place] PCP: Wade Padilla MD Status: REG ER Study: Abdomen/Pelvis without Cont Date of Exam: 06/30/18 Exam# [id number] Ordering Dr: Bruna Torrez MD STUDY: CT ABDOMEN AND PELVIS WITHOUT CONTRAST REASON FOR EXAM: Male, 67 years old. Flank pain RADIATION DOSAGE (If Supplied By Facility): CTDIvol = ( 16.20 ) mGy, DLP = ( 781.06 ) mGycm TECHNIQUE: Transaxial images were obtained from the dome of the diaphragm to the symphysis pubis without oral contrast, and without intravenous contrast. Sagittal and coronal images were reconstructed. Individualized dose optimization techniques were used for this CT. COMPARISON: 11/19/2016 FINDINGS: The visualized lung bases are unremarkable. The visualized portions of the heart are within normal limits. Normal liver. Normal gallbladder and extrahepatic biliary system. Normal spleen. Normal pancreas. Normal bilateral adrenal glands. Normal right kidney. Normal left kidney. Normal visualized stomach. Normal small intestine. Normal colon. The appendix is visualized and appears normal. There is diffuse atherosclerotic calcification of the abdominal aorta, without a demonstrated aneurysm. Normal inferior vena cava. Normal retroperitoneum. Normal urinary bladder. There is NO ascites or free air, abscess or adenopathy. Normal abdominal wall. Normal osseous structures. CT/Abdomen/Pelvis without Cont IMPRESSION: There is NO acute intra-abdominal abnormality. Electronically Signed: Rahat Alvarez MD at 6:05 EDT , Service support , CC: Bruna Torrez MD; Wade Padilla MD Hostel Parent: Signed KNEE 4 OR MORE Observed: 06/30/2018 Status: F Source: [place] VIEWS 3:42 AM [facility] Imaging Services [address] [place] [address] Knee 4 or More Views MR#: [id number] Acct: [id number] Name: NAKUL BASSETT Rep #: [id number] : 1950 [facility] From: Rahat Alvarez PCP: Wade Padilla MD Status: REG ER Study: Knee 4 or More Views Date of Exam: 06/30/18 Exam# [id number] Ordering Dr: Bruna Torrez MD STUDY: X-RAY - RIGHT KNEE REASON FOR EXAM: Male, 67 years old. Pain TECHNIQUE: 4 view(s) of the knee. COMPARISON: None. FINDINGS: Normal visualized distal femur. Normal visualized proximal tibia and fibula. Normal proximal tibiofibular articulation. Normal medial femorotibial compartment. Normal lateral femorotibial compartment. Normal patellofemoral articulation. There is prepatellar soft tissue swelling. There is NO joint effusion. RAD/Knee 4 or More Views IMPRESSION: Normal x-ray examination of the knee. Electronically Signed: Rahat Alvarez MD at 4:13 EDT , Service support , CC: Bruna Torrez MD; Wade Padilla MD Hostel Parent: Signed EMERGENCY DEPARTMENT Observed: 06/25/2018 Status: F Source: [place] SUMMARY 11:19 PM [facility] Medical Records Department [address] [place] [address] Emergency Department Summary 06/25/182024 MR#: [id number] Acct: [id number] Name: NAKUL BASSETT Rep #: [id number] : 1950 67 From: [place] Tesfaye MD PCP: Wade Padilla MD Status: DEP ER - ER Visit Summary Date of Service: 06/25/18 Chief Complaint: Back pain History of Present Illness: The patient is a [address] Abdul and Dr. Padilla. 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 States that over the same timeframe he is developed low back pain. He describes an aching pain that is 10 out of 10 severity at worst and 9 out of 10 currently. Is worsened by nothing including movement. States that it is partially relieved by a hot tub and ice. He is taken a Medrol Dosepak, Rhodes, and nabumetone without relief. States that it radiates to the anterior surface of his right thigh and he has right hip pain as well. He denies any numbness or weakness. No problems with his bowels or his bladder. No groin numbness. No other trauma. No fall or MVA. Physical Examination: Vitals: Stable. Afebrile. General: A AND O x 3. NAD. Cardiovascular exam: Regular rate and rhythm, no murmur, rub or gallop. Respiratory exam: Clear to auscultation bilaterally. No wheezes or stridor. Abdominal exam: Soft, nontender, nondistended, normal bowel sounds. No peritoneal signs. Back: Moderate tenderness to palpation over the paraspinous musculature in the right lumbar region. No point tenderness. Negative straight leg bilaterally. 5/5 DF, PF, EHL bilaterally. Normal sensation to light touch throughout. No rash to suggest shingles. Extremity: No clubbing, cyanosis, or edema. No pain with internal or external rotation of his hip. Test Results: Patient had already had x-rays of his LS spine and hip. These were reviewed as were the reads and it showed nothing acute. Emergency Department Course and Treatment: Had a prolonged discussion the patient at this time I do not have a whole lot more to offer. He was given a dose of Kenalog IM. Treatment Plan: I suggested to the patient that if his back began hurting when he started this job that he take some time off and see if it improves. He will have his Rhodes changed to Percocet. I also discussed with him getting in to see Dr. Chantell Pandya as soon as possible. With pain radiating to his right leg he may have a radiculopathy. The signs and symptoms of cauda equina syndrome were discussed and he was instructed to return for these. Disposition: To home in improved and stable condition. Impression: 1. Low back pain. This note was generated with [employer] dictation software. It may contain incorrect words, spelling, and punctuation that were not noted in review of the chart prior to signing ED Disposition - Plan for ED Patient: Disposition: Home or Assisted Living Chief Complaint: Back Instructions: ED Neck Back Pain General Prescriptions: Oxycodone HCl/Acetaminophen [Percocet 5/325] 1 tablet PO Q6H PRN PRN 5 Days #20 tablet PRN Reason: Pain Docusate Sodium [Colace] 100 mg PO DAILY #20 capsule Referrals: Yang Abdul, DO [STAFF PHYSICIAN] - As soon as possible What to do if you have Problems For any increased pain, shortness of breath, bleeding, nausea or vomiting, chest pain, or any unexpected problems, contact your Primary Care Provider. Call [facility] ([phone]) or report to the closest Emergency Room. Call 911 if necessary. 06/25/18 9244 <Electronically signed by Reno Tesfaye MD> Date Reno Tesfaye MD Cosigner Signature (If Indicated): Date CC: Wade Padilla MD INTERNAL MEDICINE Observed: 06/17/2018 Status: F Source: [place] OFFICE VISIT 12:12 PM [facility] [address] [place] [address] OFFICE VISIT Date of Service: 06/16/18 MR#: [id number] Acct: [id number] Name: NAKUL BASSETT Rep #: [id number] : 1950 Provider: Wade Padilla MD Age/Sex: 67/M Location[place] [facility] Status: Signed Intake Vital Signs06/16/18 Height 5 ft 10 in Intake Visit Reasons: 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 arm Is patient in pain?: Yes (Rt hip pain) Pain scale (1-10): 9 Allergies Iodinated Contrast- Oral and IV Dye [Iodinated Contrast Media - IV Dye] Allergy (Verified 05/30/18 08:17) Unknown Medications c-pap MISCELLANEOUS 10/10/17 [History Confirmed 06/16/18] rosuvastatin 10 mg tablet 10 mg PO QHS #90 tab 01/09/18 [Rx Confirmed 06/16/18] Aspirin [Aspirin, Baby] 81 mg PO DAILY@0800 04/12/18 [History Confirmed 06/16/18] Walker [Ultra-Light Rollator] 1 ea MC BID #1 ea 04/13/18 [Rx Confirmed 05/30/18] hydrochlorothiazide 25 mg tablet 25 mg PO QDAY #90 tab 05/30/18 [Rx Confirmed 06/16/18] methylprednisolone 4 mg tablets in a dose pack See Rx Instructions PO PER PKG DIR #21 tab 06/16/18 [Rx Confirmed 06/16/18] PFSH Medical History Hypertension (Chronic) Acute sinusitis (Acute) Asthma with acute exacerbation (Acute) Cough (Acute) Dyspnea (Acute) Wheezing (Acute) Bronchitis (Chronic) COPD (chronic obstructive pulmonary disease) (Chronic) Chronic sinusitis (Chronic) Heart murmur (Chronic) Hyperlipidemia (Chronic) Hypersomnia (Chronic) Tobacco abuse (Chronic) Surgical History hammer toe surgery (Acute) H/O knee surgery (Resolved) Right foot operation after an accident (Resolved) Right nostril growth removed (Resolved) ruptured naval (Resolved) Family History Father Lung cancer Uncle Cancer Grandfather Myocardial infarction Grandmother Myocardial infarction Mother Myocardial infarction, Onset Age: 90 Social History Smoking Status: Current every day smoker alcohol intake: current alcohol intake frequency: a few times a month substance use type: does not use what type of physical activity do you participate in: none HPI HPI Chief Complaint: Rt hip pain and lump under Rt. arm Details: NAKUL BASSETT, is a 67yo M who presents to the office today for follow-up of his right-sided pain and swelling noted in his right arm pit. During his last visit, he had reported right-sided hip / buttock pain. Anti-inflammatories were recommended however, patient presents today with persistent pain. He also reports midline low back pain. He denies any change in his bowel or bladder habits. He also denies falls. He P reports that about 2 weeks ago he noted a swelling in his right arm pit. Swelling was said to be tender. He has not noted any worsening or continued tenderness or discomfort in the area. Feels well otherwise.. ROS Const Constitutional: No weight change, body ache, chills, fatigue, sleep problems, fever(s), change in appetite, snoring, weakness, frequent falls, headache(s) or excessive sweating Eyes Eyes: No change in vision, eye pain, light sensitivity or blurry vision ENT ENT: No headache(s), abnormal hearing, ear pain, tinnitus, nasal congestion, sore throat or neck pain Resp Respiratory: No snoring, cough, shortness of breath or wheezing Cardio Cardiology: No excessive sweating, chest pain at rest, chest pain with exertion, shortness of breath, dyspnea on exertion, palpitations, orthopnea or lightheadedness Gastro GI: No abdominal pain, change in bowel habits, constipation, diarrhea, vomiting, nausea/dyspepsia or cramping Genitourinary Male: No painful urination, urinary incontinence, urinary frequency, urinary urgency, blood in urine, testicle pain or other Musc Musculoskeletal: Positive for other (Rt. hip pain); no neck pain, abnormal walking, joint pain, back pain, limited range of motion, numbness or tingling Skin Skin: Positive for lesions (under Rt arm ); no redness, dry skin, itching, wounds or rash Neuro Neurology: No weakness, frequent falls, headache(s), abnormal hearing, abnormal walking, numbness, tingling, abnormal speech, dizziness or memory loss Psych Psychiatric: No change in appetite, No memory loss, No anxiety, No depression, No Thoughts of harming yourself/Others Endo Endocrine: No fatigue, excessive sweating, cold intolerance, increased thirst/drinking, heat intolerance, flushing or increased hunger Aller/Imm Allergy/Immunologic: No wheezing, itchy eyes, hives or seasonal allergy symptoms Titi/Lymp Hematologic/Lymphatic: No easy bleeding, easy bruising or enlarged lymph nodes Exam Const General: cooperative, no acute distress Orientation: alert, awake, oriented x3 [facility] Head: atraumatic, normocephalic, normal to inspection Ears: hearing grossly normal bilaterally Resp Effort AND Inspection: normal respiratory effort, able to speak in complete sentences Auscultation: Bilateral: Clear to Auscultation Cardio Rate: regular rate Rhythm: regular rhythm Heart Sounds: S1 normal, S2 normal GI Palpation: soft, no hepatosplenomegaly Musc Musculoskeletal: Yes joint tenderness Thoracic/Lumbar Spine: paraspinal tenderness Neuro General: alert, awake, oriented x3, moves all extremities, CN's II-XI intact bilaterally Extrem General: no clubbing, cyanosis or edema Psych Appearance: grossly normal Mood: congruent mood Affect: normal affect Assessment AND Plan 1. Low back pain M54.5 Plan Persistent. Also reports persistent right hip pain. Prior NSAIDs and hydrocodone received from his orthopedic surgeon not very helpful with his pain. Prescription for Medrol Dosepak given. X-rays also ordered. Advised to follow-up with his orthopedic surgeon. May benefit from physical therapy. 2. Right axillary swelling M79.89 Plan No swelling appreciated on examination. Will monitor for now 3. Healthcare maintenance Z00.00 Plan Declined flu shot. This note was generated with [employer] software. It may contain incorrect words, spelling, and punctuation that were not noted in checking the note before signing. Plan Detail Other Orders Orders: Other Medications New: Coding Level of Care Code Off vis,est,level 3 Diagnoses Low back pain M54.5 Right axillary swelling M79.89 Healthcare maintenance Z00.00 06/17/18 1212 <Electronically signed by Wade Padilla MD> Date Wade Padilla MD Cosigner Signature: Date (if applicable) CC: HIP, UNI W/ PELVIS Observed: 06/16/2018 Status: F Source: [place] 2-3 VIEWS 11:32 AM [facility] Imaging Services [address] [place] [address] HIP, UNI W/ Pelvis 2-3 Views MR#: [id number] Acct: [id number] Name: NAKUL BASSETT Rep #: [id number] : 1950 67 From: Fitz Rayo MD PCP: Wade Padilla MD Status: REG CLI Study: HIP, UNI W/ Pelvis 2-3 Views Date of Exam: 06/16/18 Exam# [id number] Ordering Dr: Wade Padilla MD STUDY: X-RAY - PELVIS AND RIGHT HIP REASON FOR EXAM: Male, 67 years old. Right hip pain. TECHNIQUE: Radiological exam, hip, unilateral, with pelvis when performed; 2 or 3 views. COMPARISON: None. FINDINGS: There is a non-specific bowel gas pattern. Normal visualized soft tissue structures. Normal bilateral iliac wings, sacroiliac joints and visualized sacrum. Normal bilateral superior and inferior pubic rami. Normal pubic symphysis. Normal bilateral ischial tuberosities. Normal visualized femoral head. Normal acetabulum. Normal hip joint. RAD/HIP, UNI W/ Pelvis 2-3 Views IMPRESSION: Normal x-ray examination of the pelvis and right hip. Electronically Signed: Fitz Rayo MD at 13:42 EDT , Service support , CC: Wade Padilla MD Hostel Parent: Signed L/S SPINE MIN 4 Observed: 06/16/2018 Status: F Source: [place] VIEWS 11:32 AM [facility] Imaging Services [address] [place] [address] L/S Spine Min 4 Views MR#: [id number] Acct: [id number] Name: NAKUL BASSETT Rep #: [id number] : 1950 [facility] From: Fitz Rayo MD PCP: Wade Padilla MD Status: REG CLI Study: L/S Spine Min 4 Views Date of Exam: 06/16/18 Exam# [id number] Ordering Dr: Wade Padilla MD STUDY: X-RAY - LUMBAR SPINE REASON FOR EXAM: Male, 67 years old. Low back pain. TECHNIQUE: 5 view(s) of the lumbar spine were obtained. COMPARISON: None FINDINGS: Normal lumbar lordosis. There is no substantial scoliosis. There is a normal alignment of the vertebrae. 6 lumbar type vertebral bodies. 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 Using the above convention, there is minimal anterior wedging of the superior endplates of L1 and L2 vertebral bodies. Mild narrowing of the L4-L5 disc space height. Minimal posterior intradiscal calcification at L5 L6 disc level. No acute fractures. Extensive vascular calcifications of the lower abdominal aorta and the common iliac arteries. RAD/L/S Spine Min 4 Views IMPRESSION: 1. No acute osseous abnormality of the lumbar spine. 2. 6 lumbar type vertebral bodies. 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 3. Minimal anterior wedging of the L1 and L2 superior endplates may be developmental or from remote injury. 4. Mild L4-L5 degenerative disc space height narrowing. 5. Minimal posterior intradiscal calcifications at L5 L6 disc level. Electronically Signed: Fitz Rayo MD at 13:45 EDT , Service support , CC: Wade Padilla MD Hostel Parent: Signed INTERNAL MEDICINE Observed: 05/30/2018 Status: F Source: [place] OFFICE VISIT 1:23 PM [facility] [address] [place] [address] [place] [address] OFFICE VISIT Date of Service: 05/30/18 MR#: [id number] Acct: [id number] Name: NAKUL BASSETT Rep #: [id number] : 1950 Provider: Wade Padilla MD Age/Sex: 67/M Location[place] [facility] Status: Signed Intake Vital Signs05/30/18 Height 5 ft 10 in 05/30/18 Weight: 198 lb 05/30/18 Body Mass Index (BMI) 28.4 05/30/18 Blood Pressure 146/73 Intake Visit Reasons: 1 MO FU Chief Complaint: 1 Mo follow-up. Is patient in pain?: Yes (Rt hip AND low back) Pain scale (1-10): 7 Allergies Iodinated Contrast- Oral and IV Dye [Iodinated Contrast Media - IV Dye] Allergy (Verified 05/30/18 08:17) Unknown Medications c-pap MISCELLANEOUS 10/10/17 [History Confirmed 05/30/18] rosuvastatin 10 mg tablet 10 mg PO QHS #90 tab 01/09/18 [Rx Confirmed 05/30/18] Aspirin [Aspirin, Baby] 81 mg PO DAILY@0800 04/12/18 [History Confirmed 05/30/18] Walker [Ultra-Light Rollator] 1 ea MC BID #1 ea 04/13/18 [Rx Confirmed 05/30/18] hydrochlorothiazide 25 mg tablet 25 mg PO QDAY #90 tab 05/30/18 [Rx Confirmed 05/30/18] PFSH Medical History Hypertension (Chronic) Acute sinusitis (Acute) Asthma with acute exacerbation (Acute) Cough (Acute) Dyspnea (Acute) Wheezing (Acute) Bronchitis (Chronic) COPD (chronic obstructive pulmonary disease) (Chronic) Chronic sinusitis (Chronic) Heart murmur (Chronic) Hyperlipidemia (Chronic) Hypersomnia (Chronic) Tobacco abuse (Chronic) Surgical History hammer toe surgery (Acute) H/O knee surgery (Resolved) Right foot operation after an accident (Resolved) Right nostril growth removed (Resolved) ruptured naval (Resolved) Family History Father Lung cancer Uncle Cancer Grandfather Myocardial infarction Grandmother Myocardial infarction Mother Myocardial infarction, Onset Age: 90 Social History Smoking Status: Current every day smoker alcohol intake: current alcohol intake frequency: a few times a month substance use type: does not use what type of physical activity do you participate in: none HPI HPI Chief Complaint: 1 Mo follow-up. Details: NAKUL BASSETT, is a 67yo M who presents to the office today for follow-up. Recently started on hydrochlorothiazide due to poorly controlled blood pressure. He has no complaints at this time. Blood pressure though better, is still not optimal. He reports right-sided buttock and hip pain which is been ongoing for 7 days. He has no recollection of any significant trauma. Pain is said to be worse on some movements and laying down. ROS Const Constitutional: No chills, fatigue, fever(s), frequent falls, malaise, weakness, sleep problems or change in appetite Eyes Eyes: No blurry vision, change in vision, double vision, discharge or visual disturbances ENT ENT: No abnormal hearing, ear pain, ear pressure, tinnitus or dizziness/vertigo Resp Respiratory: No cough, shortness of breath or wheezing Cardio Cardiology: No chest pain at rest, chest pain with exertion, shortness of breath, dyspnea on exertion, generalized swelling, irregular heart rhythm, lightheadedness, orthopnea, fast heart rate or palpitations Gastro GI: No abdominal pain, change in bowel habits, constipation, diarrhea, nausea/dyspepsia or vomiting Genitourinary Male: No difficulty urinating, burning urination, painful urination, urinary incontinence, urinary frequency, urinary urgency, urinary hesitancy, urinary retention, blood in urine, Frequent nighttime urination/ nocturia, sexual problems, testicle lump or testicle pain Musc Musculoskeletal: Positive for joint pain (Rt hip ) and back pain (Low back); no joint swelling, limited range of motion, numbness or tingling Skin Skin: No change in skin color, itching, rash or wounds Breast Breast: No breast lump or breast pain Neuro Neurology: No frequent falls, weakness, abnormal hearing, numbness, tingling, unsteady gait/balance, dizziness, loss of vision, memory loss or visual disturbances Psych Psychiatric: No memory loss, No anxiety, No change in appetite, No depression, No Thoughts of harming yourself/Others Endo Endocrine: No fatigue, heat intolerance, increased thirst/drinking, increased hunger or increased urination Aller/Imm Allergy/Immunologic: No wheezing, itchy eyes or seasonal allergy symptoms Titi/Lymp Hematologic/Lymphatic: No easy bleeding, easy bruising or enlarged lymph nodes Exam Const General: cooperative, no acute distress Orientation: alert, awake, oriented x3 [facility] Head: atraumatic, normocephalic, normal to inspection Ears: hearing grossly normal bilaterally Resp Effort AND Inspection: normal respiratory effort, able to speak in complete sentences Auscultation: Bilateral: Clear to Auscultation Cardio Rate: regular rate Rhythm: regular rhythm Heart Sounds: S1 normal, S2 normal GI Palpation: soft, no hepatosplenomegaly Musc Musculoskeletal: Yes joint tenderness (Right sacroiliac joint) Neuro General: alert, awake, oriented x3, moves all extremities, CN's II-XI intact bilaterally Extrem General: no clubbing, cyanosis or edema Psych Appearance: grossly normal Mood: congruent mood Affect: normal affect Assessment AND Plan 1. Hypertension I10 Plan Still not optimally controlled. Increase hydrochlorothiazide to 25 mg daily. Last BMP with potassium within range. Continue increase of potassium rich foods. Continue although lifestyle and dietary modifications. Follow-up in 3 months with a BMP. Orders Orders: 2. Sacroiliitis M46.1 Plan Right sided. Anti-inflammatories recommended for now. Advised to call with worsening or persistent symptoms. 3. Carotid artery stenosis I65.29 Plan Stable. Continue follow-up with vascular surgery. Scheduled for repeat ultrasound soon. 4. LIZA (obstructive sleep apnea) G47.33 Plan Stable. CPAP use recommended. 5. Healthcare maintenance Z00.00 Plan Declines flu shot. This note was generated with [employer] dictation software. It may contain incorrect words, spelling, and punctuation that were not noted in checking the note before signing. Plan Detail Other Medications Changed: Coding Level of Care Code Off vis,est,level 4 Diagnoses Hypertension I10 Sacroiliitis M46.1 Carotid artery stenosis I65.29 LIZA (obstructive sleep apnea) G47.33 Healthcare maintenance Z00.00 05/30/18 1323 <Electronically signed by Wade Padilla MD> Date Wade Padilla MD Cosigner Signature: Date (if applicable) CC: BASIC METABOLIC Collected: 05/10/2018 Status: F Source: [place] PROFILE (BMP) 8:33 AM [facility] Order Comment: Comments: Fasting Comments: Fasting TYPE CODE TESTS RESULT OUT OF RANGE REFERENCE UNITS LAB L501.0100 74-106 mg/dL Normal GLU 104 Result Comment: Fasting Glucose result from 100 to 125 mg/dL suggests IMPAIRED HOMEOSTASIS per A.D.A. criteria. Please note revised GLUCOSE reference range effective 2017. LAB L501.1000 7-18 mg/dL Normal BUN 17 LAB L501.1100 0.70-1.30 mg/dL Normal CREAT,SERUM 0.96 Result Comment: The validity of the calculated GFR AND GFRAA in patients over 70 years has not been determined. Clinical correlation is essential. LAB L501.1110 >60 mL/min Normal EST GFR 83 Result Comment: Non- GFR Calc LAB L501.1115 >60 mL/min Normal EST GFR - AA 101 Result Comment: GFR Calc LAB L501.1300 10-20 RATIO Normal BUN/CRE 17.8 LAB L501.2200 8.5-10.1 mg/dL CA Normal 8.9 LAB L501.5300 136-145 mmol/L NA Normal 139 LAB L501.5600 3.5-5.1 mmol/L K Normal 4.2 LAB L501.5900 98-107 mmol/L CL Normal 105 LAB L501.6100 21.0-32.0 mmol/L Normal CO2 26.0 LAB L501.6200 5-15 Normal GAP 8 Performed By: #### L500.2500, L500.4100, L501.9520, L506.0400 #### [facility] [address] [place], [place], [address] LIPID PROFILE Collected: 05/10/2018 Status: F Source: [place] 8:33 AM [facility] Order Comment: Comments: Fasting Comments: Fasting TYPE CODE TESTS RESULT OUT OF RANGE REFERENCE UNITS LAB L501.4900 200 mg/dL Normal CHOL 149 Result Comment: <200 mg/dL Desirable 200-240 mg/dL Borderline >240 mg/dL High Risk LAB L501.5000 mg/dL Normal TRIG 97 Result Comment: The drugs N-Acetylcysteine and Metamizole may falsely depress this assay. Serum Triglycerides Reference Interval Normal <150 mg/dL Borderline high 150 - 199 mg/dL High 200 - 499 mg/dL Very High > or = 500 mg/dL LAB L501.6400 mg/dL Low HDL 36 Result Comment: The drugs N-Acetylcysteine and Metamizole may falsely depress this assay. Reference Range HDL <40 mg/dL Low HDL Cholesterol HDL >or= 60 mg/dL High HDL Cholesterol LAB L501.6500 0-130 mg/dL Normal LDL 94 LAB L501.6600 5-40 mg/dL Normal VLDL 19 Performed By: #### L500.2500, L500.4100, L501.9520, L506.0400 #### [facility] [address] [place], [place], [id number] THYROID STIM HORMONE Collected: 05/10/2018 Status: F Source: JULIANA (TSH) 8:33 AM [facility] REPOS[facility] Order Comment: Comments: Fasting Comments: Fasting TYPE CODE TESTS RESULT OUT OF RANGE REFERENCE UNITS LAB L501.9520 0.358-3.74 uIU/mL Normal TSH 2.30 Performed By: #### L500.2500, L500.4100, L501.9520, L506.0400 #### [facility] [address] [place], [address] T4 FREE DIRECT Collected: 05/10/2018 Status: F Source: JULIANA 8:33 AM [facility] Order Comment: Comments: Fasting Comments: Fasting TYPE CODE TESTS RESULT OUT OF RANGE REFERENCE UNITS LAB L506.0400 0.76-1.46 ng/dL Normal T4 FREE 0.87 DIRECT Performed By: #### L500.2500, L500.4100, L501.9520, L506.0400 #### [facility] [address] [place], [address] PULMONARY FUNCTION Observed: 05/08/2018 Status: F Source: JULIANA TEST 11:16 AM [facility] REPOSITORY [facility] Pulmonary Services/Neurology [address] [place] [address] MR#: [id number] Acct: [id number] Name: NAKUL BASSETT Rep #: [id number] : 1950 67 From: Livan Oconnor DO Referring Dr: Stephie Dickinson NP Status: REG CLI Ordering Dr: Date: Location: [facility] Sex: M C INTRODUCTION: The patient is a 67-year-old male that presents for pulmonary function testing secondary to a diagnosis of dyspnea. Respiratory therapy reports good patient effort. Bronchodilators were used during testing. Forced expiration spirometry INTERPRETATION: Forced expiration spirometry demonstrates no evidence of a large airways obstructive ventilatory defect. There was no significant response to aerosolized bronchodilators. Spirograms are of good quality and plateau normally. The respiratory flow volume loop appears normal. Body plethysmography was performed and reveals lung volumes to be within normal limits. Diffusing capacity by single breath CO is also within normal limits. IMPRESSION: Grossly normal pulmonary function testing. 05/08/18 1116 <Electronically signed by Livan Oconnor DO> Date Livan Oconnor DO CC: Stephie Olvera Oleghe, MD Date Dictated: 05/08/18 1112 Date Transcribed: 05/08/18 111 Hostel Parent: ISA Signed 12 LEAD ELECTROCARDIOGRAM Observed: 05/06/2018 Status: F Source: JULIANA 1:34 PM [facility] REPOSITORY [facility] Cardiovascular Services [address] [place] [address] 12 Lead EKG 05/02/18 0905 MR#: [id number] Acct: [id number] Name: NAKUL BASSETT Rep #: [id number] : 1950 67 From: Josafat Rhodes MD Attending Dr: Wade Padilla MD Status: REG CLI Ordering Dr: Wade Padilla MD Date: 05/02/18 Location: [facility] Sex: M C Admitted: Test Reason : SOB Blood Pressure : / mmHG Vent. Rate : 048 BPM Atrial Rate : 048 BPM P-R Int : 152 ms QRS Dur : 088 ms QT Int : 442 ms P-R-T Axes : 061 075 064 degrees QTc Int : 394 ms Marked sinus bradycardia Abnormal ECG Confirmed by MEAGAN GUNDERSON, JOSAFAT ([id number]), international editorial producer CARLY NORIEGA ([id number]) on 05/06/2018 1:33:56 PM Referred By: Wade Padilla Confirmed By:JOSAFAT RHODES MD 05/06/18 1334 Date Josafat Rhodes MD CC: Wade Padilla MD Signed ECHOCARDIOGRAM COMPLETE Observed: 05/05/2018 Status: F Source: JULIANA 8:39 AM [facility] REPOSITORY [facility] Cardiovascular Services [address] [place] [address] Echo Complete 05/02/18 0809 MR#: [id number] Acct: [id number] Name: NAKUL BASSETT Rep #: [id number] : 1950 67 From: Howard Cheng MD Attending Dr: Wade Padilla MD Status: REG CLI Ordering Dr: Wade Padilla MD Date: 05/02/18 Location: [facility] Sex: M C Admitted: Reason For Study: dyspnea/SOB Procedure This was a 2D Doppler, Color Flow transthoracic echocardiogram. The exam was of adequate technical quality. Exam performed in department. Left Ventricle Normal LV size. Left ventricular systolic function is normal. The estimated ejection fraction is 60 %. No regional wall motion abnormalities noted. Right Ventricle Normal RV size. Normal systolic function. Atria Normal left atrium. Normal right atrium. No doppler evidence for ASD. Mitral Valve There is moderate mitral annular calcification. Extension of the mitral annular calcification onto the mitral valve leaflets. Mild (1+) mitral valve insufficiency. Tricuspid Valve Normal tricuspid valve. Mild tricuspid valve insufficiency. Right ventricular systolic pressure estimated to be 25 mmHg. Aortic Valve Trisinus/trileaflet aortic valve. Mild focal aortic valve calcification. Mild aortic stenosis. Mild (1+) eccentric aortic valve insufficiency. Pulmonic Valve The pulmonic valve is not well visualized. Great Vessels Normal sized aortic root. Pericardium/Pleural No pericardial effusion. MMode/2D Measurements AND Calculations LVIDd: 5.1 cm IVSd: 0.95 cm LVOT diam: 2.1 cm LVIDs: 3.3 cm LVPWd: 1.2 cm LVOT area: 3.5 cm2 RVDd: 3.3 cm FS: 34.6 % Ao root diam: 3.0 cm LAV(MOD-bp): 51.7 ml LA A4 area: 17.7 cm2 LA dimension: 3.6 cm LAV(MOD-bp) Indexed: 25.1 ml/m2 LAV(MOD-sp2): 50.9 ml LAV(MOD-sp4): 50.2 ml RA A4 area: 14.8 cm2 Doppler Measurements AND Calculations MV E max josephine: 120.2 cm/sec Lat Peak E' Josephine: 8.3 cm/sec Med Peak E' Josephine: 11.6 cm/sec MV A max josephine: 84.3 cm/sec E/E' lat: 14.5 E/E' med: 10.3 MV E/A: 1.4 Ao V2 max: 287.2 cm/sec AI max josephine: 360.3 cm/sec LV V1 max: 123.5 cm/sec Ao max P.0 mmHg AI max P.0 mmHg LV V1 max P.1 mmHg Ao V2 mean: 179.5 cm/sec AI dec slope: 135.0 cm/sec2 LV V1 mean P.6 mmHg Ao mean P.7 mmHg AI P1/2t: 782.0 msec LV V1 mean: 74.7 cm/sec Ao V2 VTI: 65.2 cm LV V1 VTI: 27.6 cm ANTONINA(I,D): 1.5 cm2 ANTONINA(V,D): 1.5 cm2 SV(LVOT): 95.6 ml PA V2 max: 80.9 cm/sec TR max josephine: 238.8 cm/sec TR max P.8 mmHg Interpretation Summary Left ventricular systolic function is normal. The estimated ejection fraction is 60 %. There is moderate mitral annular calcification. Extension of the mitral annular calcification onto the mitral valve leaflets. Mild (1+) mitral valve insufficiency. Mild tricuspid valve insufficiency. Mild aortic stenosis. Mild (1+) eccentric aortic valve insufficiency. Right ventricular systolic pressure estimated to be 25 mmHg. Transmitral diastolic flow velocities suggest diastolic dysfunction (pseudonormal pattern). Ordering Physician: Wade Padilla Referring Physician: Wade Padilla Performed By: Deana Downey, SABRINA, RVT 05/05/18837 Date Howard Cheng MD CC: Wade Padilla MD Date Dictated: 05/02/18808 Date Transcribed: 05/05/18837 Hostel Parent: Signed INTERNAL MEDICINE Observed: 04/29/2018 Status: F Source: JULIANA OFFICE VISIT 4:33 PM [facility] [address] [place] [address] [place] [address] OFFICE VISIT Date of Service: 04/29/18 MR#: [id number] Acct: [id number] Name: NAKUL BASSETT Rep #: [id number] : 1950 Provider: Wade Padilla MD Age/Sex: 67/M Location: [facility] Status: Signed Intake Vital Signs04/29/18 Height 5 ft 10 in Intake Visit Reasons: 3 MO FU Chief Complaint: follow-up. Is patient in pain?: Yes (feet and abdomen from rash) Pain scale (1-10): 3 Allergies Iodinated Contrast- Oral and IV Dye [Iodinated Contrast Media - IV Dye] Allergy (Verified 04/13/18 09:50) Unknown Medications c-pap MISCELLANEOUS 10/10/17 [History Confirmed 01/09/18] rosuvastatin 10 mg tablet 10 mg PO QHS #90 tab 01/09/18 [Rx Confirmed 04/12/18] Aspirin [Aspirin, Baby] 81 mg PO DAILY@0800 04/12/18 [History Confirmed 04/12/18] Cephalexin [Keflex] 500 mg PO Q6 #40 cap 04/12/18 [Rx] Hydrocodone/Acetaminophen [Rhodes 5-325 Tablet] 1 ea PO BID #7 tab 04/13/18 [Rx] Walker [Ultra-Light Rollator] 1 ea MC BID #1 ea 04/13/18 [Rx] lidocaine 2 % mucosal solution 10 ml MUCOUS MEMBRANE Q8H PRN #100 ml 04/15/18 [Rx Confirmed 04/15/18] nabumetone 750 mg tablet 750 mg PO BID PRN 04/15/18 [History Confirmed 04/15/18] hydrochlorothiazide 25 mg tablet 12.5 mg PO QDAY #30 tab 04/29/18 [Rx Confirmed 04/29/18] PFSH Medical History Acute sinusitis (Acute) Asthma with acute exacerbation (Acute) Cough (Acute) Dyspnea (Acute) Wheezing (Acute) Bronchitis (Chronic) COPD (chronic obstructive pulmonary disease) (Chronic) Chronic sinusitis (Chronic) Heart murmur (Chronic) Hyperlipidemia (Chronic) Hypersomnia (Chronic) Tobacco abuse (Chronic) Surgical History hammer toe surgery (Acute) H/O knee surgery (Resolved) Right foot operation after an accident (Resolved) Right nostril growth removed (Resolved) ruptured naval (Resolved) Family History Father Lung cancer Uncle Cancer Grandfather Myocardial infarction Grandmother Myocardial infarction Mother Myocardial infarction, Onset Age: 90 Social History Smoking Status: Current every day smoker alcohol intake: current alcohol intake frequency: a few times a month substance use type: does not use what type of physical activity do you participate in: none HPI HPI Chief Complaint: follow-up. Details: NAKUL BASSETT, is a 67yo M who presents to the office today for follow-up. He was recently seen at the ER and had a follow-up visit here for wblk-zyni-wsb-mouth disease. Symptoms are said to be improving/resolving. Blood pressure is however noted to be again elevated. On review of his flow sheet, blood pressure has been elevated for at least 2 years. He is currently not on any medication for hypertension. He has a history of hyperlipidemia and is not compliant with his medication. Current everyday smoker and a significant family history of heart disease. ROS Const Constitutional: No weight change, body ache, chills, fatigue, sleep problems, fever(s), change in appetite, snoring, weakness, frequent falls, headache(s) or excessive sweating Eyes Eyes: No change in vision, eye pain, light sensitivity or blurry vision ENT ENT: No headache(s), abnormal hearing, ear pain, tinnitus, nasal congestion or neck pain Resp Respiratory: No snoring, cough, shortness of breath or wheezing Cardio Cardiology: No excessive sweating, chest pain with exertion, shortness of breath, dyspnea on exertion, palpitations, orthopnea or lightheadedness Gastro GI: No abdominal pain, change in bowel habits, constipation, diarrhea, vomiting, nausea/dyspepsia or cramping Genitourinary Male: No painful urination, urinary incontinence, urinary frequency, urinary urgency, blood in urine, testicle pain or other Musc Musculoskeletal: No neck pain, abnormal walking, joint pain, back pain, limited range of motion, numbness or tingling Skin Skin: No redness, dry skin, itching, lesions, wounds or rash Neuro Neurology: No weakness, frequent falls, headache(s), abnormal hearing, abnormal walking, numbness, tingling, abnormal speech, dizziness or memory loss Psych Psychiatric: No change in appetite, No memory loss, No anxiety, No depression, No Thoughts of harming yourself/Others Endo Endocrine: No fatigue, excessive sweating, cold intolerance, increased thirst/drinking, heat intolerance, flushing or increased hunger Aller/Imm Allergy/Immunologic: No wheezing, itchy eyes, hives or seasonal allergy symptoms Titi/Lymp Hematologic/Lymphatic: No easy bleeding, easy bruising or enlarged lymph nodes Exam Const General: cooperative, no acute distress Orientation: alert, awake, oriented x3 HENMT Head: atraumatic, normocephalic, normal to inspection Ears: hearing grossly normal bilaterally Resp Effort AND Inspection: normal respiratory effort, able to speak in complete sentences Auscultation: Bilateral: Clear to Auscultation Cardio Rate: regular rate Rhythm: regular rhythm Heart Sounds: S1 normal, S2 normal GI Palpation: soft, no hepatosplenomegaly Neuro General: alert, awake, oriented x3, moves all extremities, CN's II-XI intact bilaterally Extrem General: no clubbing, cyanosis or edema Psych Appearance: grossly normal Mood: congruent mood Affect: normal affect Assessment AND Plan 1. Hypertension I10 Plan Chronic. Now open to going on the medication. Will start on hydrochlorothiazide. BMP in 2 weeks. Lifestyle modifications discussed. Follow-up in 1 month. Orders Orders: 2. Hyperlipidemia E78.5 Plan Chronic. Also history of coronary artery stenosis. Scheduled for repeat ultrasound in July. Compliance with his statins discussed. Lifestyle modifications also discussed. Orders Orders: 3. SOB (shortness of breath) R06.02 Plan Also history of bilateral lower extremity swelling. Echo ordered. Smoking cessation encouraged. Follow-up with results. Orders Orders: 4. Hand, foot and mouth disease B08.4 Plan Resolving. Continue conservative management. Follow-up at next visit. This note was generated with [employer] dictation software. It may contain incorrect words, spelling, and punctuation that were not noted in checking the note before signing. Plan Detail Other Medications New: Follow Up 1 Month Coding Level of Care Code Off vis,est,level 4 Diagnoses Hypertension I10 Hyperlipidemia E78.5 SOB (shortness of breath) R06.02 Hand, foot and mouth disease B08.4 04/29/18 1633 <Electronically signed by Wade Padilla MD> Date Wade Padilla MD Cosigner Signature: Date (if applicable) CC: 6 MINUTE WALK TEST Observed: 04/28/2018 Status: F Source: JULIANA 1:23 PM [facility] REPOSITORY [facility] Pulmonary Services/Neurology [address] [place] [address] MR#: [id number] Acct: [id number] Name: NAKUL BASSETT Rep #: [id number] : 1950 67 From: Oswaldo La MD Referring Dr: Stephie Dickinson NP Date: Ordering Dr: Sex: M C Location: PSN PSN 6 Minute Walk Test - 6 Minute Walk Test 6 Minute Walk Test: 6 Minute Walk Test PSN:6-Minute Walk Test Start: 04/28/18 09:46 Freq: Status: Active Protocol: RESP.6MINW Document 04/28/18 09:46 SFENTON (Rec: 04/28/18 09:48 SFENTON [id number]) 6 Minute Walk Test Date Performed 04/28/18 Time Performed 09:05 Height 5 ft 10 in Weight: 87.543 kg Weight in Pounds 193.[address]: Oswaldo La Assistive device used: None Pre-test Oxygen Delivery Method Room Air Pulse Ox (%) 98 Pulse Rate (60-100 beats/min) 55 L Dyspnea David Scale (0-10) 0 Exertion David Scale (6-20) 6 1st minute Oxygen Delivery Method Room Air Pulse Ox (%) 98 Pulse Rate (60-100 beats/min) 67 2nd minute Oxygen Delivery Method Room Air Pulse Ox (%) 97 Pulse Rate (60-100 beats/min) 74 3rd minute Oxygen Delivery Method Room Air Pulse Ox (%) 99 Pulse Rate (60-100 beats/min) 77 4th minute Oxygen Delivery Method Room Air Pulse Ox (%) 98 Pulse Rate (60-100 beats/min) 78 5th minute Oxygen Delivery Method Room Air Pulse Ox (%) 96 Pulse Rate (60-100 beats/min) 79 6th minute Oxygen Delivery Method Room Air Pulse Ox (%) 98 Pulse Rate (60-100 beats/min) 79 Dyspnea David Scale (0-10) 0.5 Exertion David Scale (6-20) 13 Post-test Oxygen Delivery Method Room Air Pulse Ox (%) 99 Pulse Rate (60-100 beats/min) 57 L Full Laps Walked 18 Partial Lap, Number of Tiles Walked 10 Total Distance Walked (ft) 1072 - Interpretation Interpretation: The patient was able to ambulate 1072 feet over the course of 6 minutes on room air with no assistive devices or breaks. There is no significant desaturation or tachycardia noted. These findings are consistent with a normal exercise tolerance. - Recommendations Recommendations: No supplemental oxygen is indicated at this time. 04/28/183 <Electronically signed by Oswaldo La MD> Date Oswaldo La MD CC: Date Dictated: 04/28/18 1323 Date Transcribed: 04/28/181322 Hostel Parent: Oswaldo Boyd INTERNAL MEDICINE Observed: 04/16/2018 Status: F Source: JULIANA OFFICE VISIT 10:07 AM [facility] [place] [address] OFFICE VISIT Date of Service: 04/15/18 MR#: [id number] Acct: [id number] Name: NAKUL BASSETT Spencer Rep #: [id number] : 1950 Provider: Chris Scanlon NP Age/Sex: 67/M Location[place] [facility] Status: Signed Intake Vital Signs04/15/18 Height 5 ft 11 in Intake Visit Reasons: S/P [facility] ED HAND, FOOT, MOUTH Chief Complaint: hand, foot, and mouth disease Is patient in pain?: Yes (feet) Pain scale (1-10): 9 Allergies Iodinated Contrast- Oral and IV Dye [Iodinated Contrast Media - IV Dye] Allergy (Verified 04/13/18 09:50) Unknown Medications c-pap MISCELLANEOUS 10/10/17 [History Confirmed 01/09/18] rosuvastatin 10 mg tablet 10 mg PO QHS #90 tab 01/09/18 [Rx Confirmed 04/12/18] Aspirin [Aspirin, Baby] 81 mg PO DAILY@0800 04/12/18 [History Confirmed 04/12/18] Cephalexin [Keflex] 500 mg PO Q6 #40 cap 04/12/18 [Rx] Hydrocodone/Acetaminophen [Rhodes 5-325 Tablet] 1 ea PO BID #7 tab 04/13/18 [Rx] Walker [Ultra-Light Rollator] 1 ea MC BID #1 ea 04/13/18 [Rx] lidocaine 2 % mucosal solution 10 ml MUCOUS MEMBRANE Q8H PRN #100 ml 04/15/18 [Rx Confirmed 04/15/18] nabumetone 750 mg tablet 750 mg PO BID PRN 04/15/18 [History Confirmed 04/15/18] PFSH Medical History Acute sinusitis (Acute) Asthma with acute exacerbation (Acute) Cough (Acute) Dyspnea (Acute) Wheezing (Acute) Bronchitis (Chronic) COPD (chronic obstructive pulmonary disease) (Chronic) Chronic sinusitis (Chronic) Heart murmur (Chronic) Hyperlipidemia (Chronic) Hypersomnia (Chronic) Tobacco abuse (Chronic) Surgical History hammer toe surgery (Acute) H/O knee surgery (Resolved) Right foot operation after an accident (Resolved) Right nostril growth removed (Resolved) ruptured naval (Resolved) Family History Father Lung cancer Uncle Cancer Grandfather Myocardial infarction Grandmother Myocardial infarction Mother Myocardial infarction, Onset Age: 90 Social History Smoking Status: Current every day smoker alcohol intake: current alcohol intake frequency: a few times a month substance use type: does not use what type of physical activity do you participate in: none HPI HPI Chief Complaint: hand, foot, and mouth disease Details: NAKUL BASSETT, is a 67 M who presents to the office today for follow up on hand, foot, and mouth disease. His PMH includes; BPH, obesity, peripheral neuropathy, hyperlipidemia, tobacco use, LIZA, and COPD. Patient presented to the [facility] ER on April 12, 2018 for complaints of left leg swelling and pain. Patient was working in the yard and noticed some rash or redness to his left foot and ankle. He has a history of DVT in his left leg after knee surgery in the past. Patient was given 1 dose of Xarelto 20 mg until duplex study to his lower extremity could be obtained the next day and 1 dose of Keflex 500mg. Patient presented back to emergency department on April 13, 2018 for his duplex study which was was negative for DVT, Xarelto no longer continued. He did have a CBC and an x-ray which was unremarkable. He was diagnosed with rmdi-eapr-jak-mouth disease and placed on keflex as well. Patient has have pain to the left foot and describes it as a constant throbbing pain at 9/10. Patient was prescribed Percocet as needed for pain from the ER. He stated it helps with his left foot pain in addition to the Aircast that he wears for support was provided from the ER. He currently has a prescription for nabumetone that was prescribed by Dr. Chantell jhaveri as needed for pain, but has not tried taking it at this time. He does have history of bilateral lower leg edema and wears compression stockings as needed, but is unable to wear them due to the rash on the left foot. The patient otherwise denies any fever, itching, chills, nausea, vomiting, shortness of breath, chest pain or pressure, palpitations, orthopnea, syncope or presyncopal episodes. ROS Const Constitutional: No weight change, body ache, chills, fatigue, sleep problems, fever(s), change in appetite, snoring, weakness, frequent falls, headache(s) or excessive sweating Eyes Eyes: No change in vision, eye pain, light sensitivity or blurry vision ENT ENT: Positive for sore throat and nasal discharge; no headache(s) Resp Respiratory: No snoring, cough, shortness of breath or wheezing Cardio Cardiology: No excessive sweating, chest pain at rest, chest pain with exertion, shortness of breath, dyspnea on exertion, palpitations, orthopnea or lightheadedness Gastro GI: Positive for abdominal pain; no change in bowel habits, constipation, diarrhea, vomiting, nausea/dyspepsia or cramping Genitourinary Male: No painful urination, urinary incontinence, urinary frequency, urinary urgency, blood in urine, testicle pain or other Musc Musculoskeletal: Positive for tingling and numbness (hands and feet, chronic) Skin Skin: Positive for skin swelling, rash and other (hand, foot, and mouth outbreak) Breast Breast: Positive for other (hand, foot, and mouth outbreak) Neuro Neurology: Positive for tingling and numbness (hands and feet, chronic); no weakness, frequent falls, headache(s) or memory loss Psych Psychiatric: No change in appetite, No anxiety, No depression, No memory loss, No Thoughts of harming yourself/Others Endo Endocrine: No fatigue, excessive sweating, cold intolerance, increased thirst/drinking, heat intolerance, flushing or increased hunger Aller/Imm Allergy/Immunologic: No wheezing, hives or seasonal allergy symptoms Titi/Lymp Hematologic/Lymphatic: No easy bleeding, easy bruising or enlarged lymph nodes Exam Const General: cooperative, comfortable, no acute distress Nutritional Appearance: average body habitus, well nourished Orientation: alert, oriented x3 Limitations: mental status not altered [facility] Head: normal to inspection, normocephalic, atraumatic Nose: external nose normal, nares normal, no nasal polyps, no nasal discharge Face and sinus: normal facial exam, face symmetric, sinuses nontender Mouth: lip normal, tongue normal, oral mucosae normal Throat: uvula midline, posterior oropharynx abnormal (scattered small amounts of pinpoint reddened areas ) Other: denies dysphagia Eyes General: appearance normal, both eyes and all related structures Resp Effort AND Inspection: normal respiratory effort, able to speak in complete sentences, normal respiratory pattern, symmetric chest movement, no audible wheezes, no cough Auscultation: Bilateral: Clear to Auscultation Cardio Palpation: normal PMI Rate: regular rate Heart Sounds: S1 normal, S2 normal, normal S1 and S2, no click, no gallops, no murmurs, no rubs Pulses: normal peripheral pulses, radial pulses present GI Inspection: normal to inspection Auscultation: normal bowel sounds, no hyperactive bowel sounds, no hypoactive bowel sounds Palpation: soft, no hepatosplenomegaly Musc Other: pain diffusely present over left foot and ankle where vesicles are located Skin General: erythema (BLE, dorsal and plantar feet and soles of hands ) Lesions: lesion noted (vesicles dorsal and sole of feet ) Rashes: rashes noted (dorsal and plantar feet, soles of hands and orophyarnx ) Neuro General: alert, awake, oriented x3, CN's II-XI intact bilaterally Speech: speech normal Gait: normal gait Motor: muscle tone normal throughout Extrem General: full ROM, normal gait, edema Laterality: left Severity: 2+, pedal edema on the right Location: of the foot Severity: pitting and 1+, of the ankle Severity: pitting and 1+ and of the leg Severity: pitting and 1+ and on the left Location: of the foot Severity: 2+, of the ankle Severity: pitting and 2+ and of the leg Severity: 2+ Psych Appearance: grossly normal Mental Status: mental status grossly normal Affect: normal affect Attitude: cooperative Thought Process: normal Thought Content: normal Judgment: judgment good Assessment AND Plan Problems 1. Hand, foot and mouth disease B08.4 2. Left foot pain M79.672 Plan Viscous Lidocaine prescribed as needed orally due to non-raised reddened scattered areas on oropharynx. Education provided on comfort measures and reducing transmission, discussed proper hand hygeine. Discussed red flag symptoms and when to seek medical attention. Did discuss taking antinflammatories such as his nabumentone to help with pain and inflammation. Patient to continue to take Percocet as needed or nabumetone as needed. Discussed not take medications together. Continue left ankle Aircast for supportive measure. Patient to follow-up as previously scheduled or symptoms worsen. Medications New: lidocaine 2% (Lidocaine Viscous) s10 mL Mucous Membrane Q8H PRN mouth QUANG Delacruz wish/spit pain Discontinued: Plan Detail Follow Up Patient to follow-up as previously scheduled or symptoms worsen Coding Level of Care Code Off vis,est,level 3 Diagnoses Hand, foot and mouth disease B08.4 Left foot pain M79.672 04/16/18 1007 <Electronically signed by Chris DEL RIO> Date Chris DEL RIO Cosigner Signature: Date (if applicable) CC: VENOUS DUPLEX LOWER Observed: 04/13/2018 Status: F Source: [place] EXTREMITY 7:35 PM [facility] Cardiovascular Services [address] [place] [address] Venous Duplex US, Unilateral 04/13/18 1230 MR#: [id number] Acct: [id number] Name: NAKUL BASSETT Rep #: [id number] : 1950 67 From: Ivan De Luna MD Attending Dr: Status: DEP ER Ordering Dr: Jeannette Gamez MD Date: 04/13/18 Location: ED Sex: M C Admitted: Reason For Study: SWELLING Procedure LEFT Exam performed portable in patient room. GSV is normal. A preliminary report was called and/or faxed CFV is compressible, spontaneous, phasic, to ED. competent, and demonstrates normal augmentation. FV is compressible, spontaneous, phasic, competent and demonstrates normal augmentation. POP V is compressible, spontaneous, phasic, competent and demonstrates normal augmentation. T/P Trunk is compressible. PTV is compressible. LT PerV is compressible. Interpretation Summary Deep veins of the left lower extremity are patent and compressible segmentally. There is no evidence of left lower extremity deep vein thrombosis. Valvular competence appears intact within the proximal deep venous system on the left . The left greater saphenous vein appears patent and compressible segmentally. Ordering Physician: Kathia Gamez Referring Physician: Ida Cruz Performed By: Lilli Pham, RDLAYLA, RVT 04/13/181934 Date Ivan De Luna MD CC: MD Kathia Gamez; Wade Padilla MD Date Dictated: 04/13/18 1230 Date Transcribed: 04/13/181934 Hostel Parent: Signed EMERGENCY DEPARTMENT Observed: 04/13/2018 Status: F Source: [place] SUMMARY 3:40 PM [facility] Medical Records Department [address] [facility] [place] [address] Emergency Department Summary 04/13/18 1011 MR#: [id number] Acct: [id number] Name: NAKUL BASSETT Rep #: [id number] : 1950 67 From: Jeannette Gamez MD PCP: Wade Padilla MD Status: DEP ER - ER Visit Summary Date of Service: 04/13/18 Chief Complaint: [] Rash to the left leg, now the right leg, now the hands, sore throat needs duplex scan History of Present Illness: The patient is a 67 M [] he reports that basically for a few days he has noticed swelling to the left lower extremity with a rash he does report history of DVT in that lower extremity related to knee surgery about a year or 2 ago, he has had persistent intermittent edema to that extremity, then in January 2018 had recurrent knee surgery in his knee condition and leg problems seem to improve, he reports was out working in the yard he suffered no direct trauma he cannot explain why he has a rash and he indicates he has history of gout and is concerned that gout may be contributing to part of his condition Was seen yesterday in the emergency department workup was generally unremarkable he was instructed to have a duplex scan done today, to rule out DVT in the left leg, he was not called by the duplex technologist he reports and he presents to the emergency department to obtain a duplex scan, In addition today he reports he noticed small similar bumps on the right leg that are present on the left leg but they were not present yesterday, he further reports that today he has the same types of bumps on the palms of his hands, he has had a sore throat for a few days he did not mention to the physicians yesterday There is also believe that his granddaughter has similar lesions on her hands and feet and sore throat He indicates he believes his daughter might have some type of a URI process Been eating and drinking well no chest pain shortness of breath no fever no cough his review of systems otherwise negative Physical Examination: [] Is resting comfortably in the bed he has about 2+ edema to the left ankle region, he does have small papules scattered throughout the foot dorsal plantar left, he has similar lesions now on the right foot dorsal and plantar surface, he has no real pain to the extremity except some mild discomfort when he tries to dorsiflex the left ankle there is no signs of joint infection, he has no skin breakdown petechia or purpura anywhere in his body, his hands he has similar small bumps on the palms of his hands and dorsal surface of hands, his throat shows some redness no obvious vesicles Is resting in the bed no distress speaking full sentences his neck is very supple his lungs are clear his heart tones are normal the abdomen soft nontender the upper lower extremity skin exam are as above Now this all began with left lower extremity rash and edema and some mild pain the patient has progressed now to have rash on both lower extremities and the hands and a sore throat this is consistent with wqyd-acfk-bav-mouth condition, 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 and was to obtain an outpatient duplex scan he is interested in having the duplex scan done and will contact the duplex tach and they will be in to do his scan shortly The patient's labs CBC chemistry are all generally unremarkable x-ray of the ankle were unremarkable duplex scan showed no signs of DVT may be some regional lymph nodes While in the ED the patient's granddaughter came in to be evaluated by the other providers and was found to have bnvl-gopl-lpp-mouth disease Test Results: [] Explained all the above the patient I explained to visually no signs of cellulitis this is likely flle-tzqa-jym-mouth disease contributing to his constellation of symptoms he was given 1 dose of Keflex yesterday I provide him additional dose of Keflex as a smjl-wmu-spv measure if he feels the rash is getting worse he can take the Keflex otherwise and follow-up his family doctor tomorrow if he needs walking aid such as a walker will provide that Aircast and he will return for change in symptoms and we also discussed the concept of tsql-wnau-nbd-mouth disease contagious nature how to manage the condition etc. Emergency Department Course and Treatment: [] Treatment Plan: [] Disposition: [] Home stable Impression: [] Lesions on hand and feet oral cavity suspect hand-foot mouth disease, left lower extremity edema This note was generated with Evident [employer]ation software. It may contain incorrect words, spelling, and punctuation that were not noted in review of the chart prior to signing ED Disposition - Plan for ED Patient: Chief Complaint: Cellulitis Referrals: Wade Padilla MD [Primary Care Provider] - What to do if you have Problems For any increased pain, shortness of breath, bleeding, nausea or vomiting, chest pain, or any unexpected problems, contact your Primary Care Provider. Call [facility] ([phone]) or report to the closest Emergency Room. Call 911 if necessary. 04/13/18 1540 <Electronically signed by Jeannette Gamez MD> Date Jeannette Gamez MD Cosigner Signature (If Indicated): Date CC: Wade Padilla MD DISCHARGE INSTRUCTION Observed: 04/13/2018 Status: F Source: [place] 1:23 PM [facility] Medical Records Department [address] [place] [address] Discharge Instruction 04/13/18 1322 MR#: [id number] Acct: [id number] Name: NAKUL BASSETT Rep #: [id number] : 1950 67 From: Jeannette Gamez MD PCP: Wade Padilla MD Status: REG ER ED Disposition - Plan for ED Patient: Chief Complaint: Cellulitis Instructions: ED Hand Foot Mouth Disease Ch Prescriptions: Cephalexin [Keflex] 500 mg PO Q6 #40 cap Hydrocodone/Acetaminophen [Rhodes 5-325 Tablet] 1 ea PO BID #7 tab Walker [Ultra-Light Rollator] 1 ea MC BID #1 ea Referrals: Wade Padilla MD [Primary Care Provider] - What to do if you have Problems For any increased pain, shortness of breath, bleeding, nausea or vomiting, chest pain, or any unexpected problems, contact your Primary Care Provider. Call [facility] ([phone]) or report to the closest Emergency Room. Call 911 if necessary. 04/13/18 1323 <Electronically signed by Jeannette Gamez MD> Date Jeannette Gamez MD Cosigner Signature (If Indicated): Date CC: Wade Padilla MD DISCHARGE INSTRUCTION Observed: 04/13/2018 Status: F Source: [place] 12:58 PM [facility] Medical Records Department [address] [place] [address] Discharge Instruction 04/13/18 1257 MR#: [id number] Acct: [id number] Name: NAKUL BASSETT Rep #: [id number] : 1950 67 From: Jeannette Gamez MD PCP: Wade Padilla MD Status: REG ER ED Disposition - Plan for ED Patient: Chief Complaint: Cellulitis Instructions: ED Hand Foot Mouth Disease Ch Prescriptions: Cephalexin [Keflex] 500 mg PO Q6 #40 cap Hydrocodone/Acetaminophen [Rhodes 5-325 Tablet] 1 ea PO BID #7 tab Referrals: Wade Padilla MD [Primary Care Provider] - What to do if you have Problems For any increased pain, shortness of breath, bleeding, nausea or vomiting, chest pain, or any unexpected problems, contact your Primary Care Provider. Call [facility] ([phone]) or report to the closest Emergency Room. Call 911 if necessary. 04/13/18 1258 <Electronically signed by Jeannette Gamez MD> Date Jeannette Gamez MD Cosigner Signature (If Indicated): Date CC: Wade Padilla MD DISCHARGE INSTRUCTION Observed: 04/13/2018 Status: F Source: [place] 12:56 PM [facility] Medical Records Department [address] [place] [address] Discharge Instruction 04/13/18 1254 MR#: [id number] Acct: [id number] Name: NAKUL BASSETT Rep #: [id number] : 1950 67 From: Jeannette Gamez MD PCP: Wade Padilla MD Status: REG ER ED Disposition - Plan for ED Patient: Chief Complaint: Cellulitis Instructions: ED Hand Foot Mouth Disease Ch Prescriptions: Hydrocodone/Acetaminophen [Rhodes 5-325 Tablet] 1 ea PO BID #7 tab Referrals: Wade Padilla MD [Primary Care Provider] - What to do if you have Problems For any increased pain, shortness of breath, bleeding, nausea or vomiting, chest pain, or any unexpected problems, contact your Primary Care Provider. Call [facility] ([phone]) or report to the closest Emergency Room. Call 911 if necessary. 04/13/18 1256 <Electronically signed by Jeannette Gamez MD> Date Jeannette Gamez MD Cosigner Signature (If Indicated): Date CC: Wade Padilla MD CBC W/DIFF, AUTOMATED Collected: 04/13/2018 Status: F Source: [place] 10:35 AM [facility] TYPE CODE TESTS RESULT OUT OF RANGE REFERENCE UNITS LAB L100.1000 4.4-11.0 K/mm3 Low WBC 3.7 LAB L100.1200 4.6-6.2 M/mm3 Low RBC 4.49 LAB L100.1300 13.0-16.5 g/dl Normal HGB 15.1 LAB L100.1400 40-54 % Normal HCT 46.3 LAB L100.1500 80-94 fL High MCV 103.1 LAB L100.1600 27.0-32.0 pg High MCH 33.6 LAB L100.1700 32-36 g/gl Normal MCHC 32.6 LAB L100.1810 11.6-14.6 % Normal RDW CV 14.0 LAB L100.1820 35.1-43.9 fl High RDW SD 53.1 LAB L100.1900 150-450 K/mm3 Low PLT 141 LAB L100.2000 6.2-12.0 fl Normal MPV 9.6 LAB L100.2100 47-70 % Low NEUT% 36.8 LAB L100.2200 19-41 % Normal LY% 41.0 LAB L100.2300 0-10 % High MONO% 20.1 LAB L100.2400 0-5 % Normal EO% 1.6 LAB L100.2500 0-1 % Normal BASO% 0.5 LAB L100.2550 0.0-0.9 % Normal IM GRAN % 0.000 Result Comment: IG% - Immature Granulocytes (promyelocytes, myelocytes and metamyelocytes) > 1% indicates that a LEFT SHIFT is Present. LAB L100.2620 2.0-7.7 X10 3/uL Low Absolute Neut 1.4 LAB L100.2720 0.83-4.51 X10 3/ul Normal Absolute Lymph 1.51 Performed By: #### L100.0100 #### [facility] [address] [place], [place], [address] BASIC METABOLIC Collected: 04/13/2018 Status: F Source: [place] PROFILE (BMP) 10:35 AM [facility] TYPE CODE TESTS RESULT OUT OF RANGE REFERENCE UNITS LAB L501.0100 74-106 mg/dL Normal GLU 96 Result Comment: Please note revised GLUCOSE reference range effective 2017. LAB L501.1000 7-18 mg/dL Normal BUN 11 LAB L501.1100 0.70-1.30 mg/dL Normal CREAT,SERUM 0.90 Result Comment: The validity of the calculated GFR AND GFRAA in patients over 70 years has not been determined. Clinical correlation is essential. LAB L501.1110 >60 mL/min Normal EST GFR 89 Result Comment: Non- GFR Calc LAB L501.1115 >60 mL/min Normal EST GFR - AA 108 Result Comment: GFR Calc LAB L501.1255 ml/min Normal Estimated CRCL 84.83 LAB L501.1300 10-20 RATIO Normal BUN/CRE 12.2 LAB L501.2200 8.5-10 mg/dL Normal .1 CA 8.6 LAB L501.5300 136-14 mmol/L Normal 5 NA 141 LAB L501.5600 3.5-5. mmol/L Normal 1 K 4.3 LAB L501.5900 98-107 mmol/L Normal CL 106 LAB L501.6100 21.0-3 mmol/L Normal 2.0 CO2 26.0 LAB L501.6200 5-15 Normal GAP 9 Performed By: #### L500.2500 #### [facility] [address] [facility] [place], [address] ANKLE MIN 3 VIEWS Observed: 04/13/2018 Status: F Source: [place] 10:20 AM [facility] Imaging Services [address] [place] [address] Ankle min 3 Views MR#: [id number] Acct: [id number] Name: NAKUL BASSETT Rep #: [id number] : 1950 M 67 From: Silver Fam MD PCP: Wade Padilla MD Status: REG ER Study: Ankle min 3 Views Date of Exam: 04/13/18 Exam# [id number] Ordering Dr: Jeannette Gamez MD STUDY: X-RAY - LEFT ANKLE REASON FOR EXAM: Male, 67 years old. History of rash. No known injury. TECHNIQUE: 3 view(s) of the ankle. COMPARISON: None. FINDINGS: Normal visualized distal tibia and fibula. Normal medial and lateral malleoli. Normal tibiotalar articulation and ankle mortise. There is a plantar calcaneal spur. The visualized subtalar, talonavicular, calcaneocuboid and tarsal articulations are normal. There is no demonstrated fracture. There is diffuse soft tissue swelling. RAD/Ankle min 3 Views IMPRESSION: Diffuse soft tissue swelling. No demonstrated acute osseous injury. Electronically Signed: Silver Fam MD at 11:20 EDT Tel , Service support , CC: MD Kathia Gamez; Wade Padilla MD Hostel Parent: Signed DISCHARGE INSTRUCTION Observed: 04/12/2018 Status: F Source: [place] 7:17 PM [facility] Medical Records Department [address] [place] [address] Discharge Instruction 04/12/181913 MR#: [id number] Acct: [id number] Name: NAKUL BASSETT Rep #: [id number] : 1950 67 From: Ida Cruz DO PCP: Wade Padilla MD Status: REG ER ED Disposition - Plan for ED Patient: Chief Complaint: Lower Extremity Injury Instructions: ED Infec Skin Cellulitis Prescriptions: Cephalexin [Keflex] 500 mg PO Q6 #40 cap Referrals: Wade Padilla MD [Primary Care Provider] - 5-7 Days What to do if you have Problems For any increased pain, shortness of breath, bleeding, nausea or vomiting, chest pain, or any unexpected problems, contact your Primary Care Provider. Call [facility] ([phone]) or report to the closest Emergency Room. Call 911 if necessary. 04/12/181916 <Electronically signed by Ida Cruz DO> Date Ida Cruz DO Cosigner Signature (If Indicated): Date CC: Wade Padilla MD EMERGENCY DEPARTMENT Observed: 04/12/2018 Status: F Source: [place] SUMMARY 7:14 PM [facility] Medical Records Department [address] [place] [address] Emergency Department Summary 04/12/18 1907 MR#: [id number] Acct: [id number] Name: NAKUL BASSETT Rep #: [id number] : 1950 67 From: Ida Cruz DO PCP: Wade Padilla MD Status: REG ER - ER Visit Summary Date of Service: 04/12/18 Chief Complaint: [Pain and swelling left leg] History of Present Illness: The patient is a 67 M [presents the emergency department with complaint of pain and swelling in his left leg that he has had off and on for quite some time. Patient states that he supposed to wear compression stockings in his left leg but has not on a regular basis.] Patient states that today he was working in the yard when he came in he noticed some rash and redness to the foot and ankle became concerned. Patient also is complaining of discomfort in his ankle and is concerned about possibility of gout. Patient denies any trauma to his leg. He denies recent travel or surgery. 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 Physical Examination: [HEENT-PERRLA, EOMI. Cranial nerves II through XII grossly intact. TMs clear. Mucous membranes moist. No adenopathy. Cardiovascular-regular rate and rhythm without murmur or ectopy Lungs-clear to auscultation, chest wall stable without crepitus or subcu emphysema Abdomen-normoactive bowel sounds, soft, nontender, no rebound or rigidity, no peritoneal signs. Extremities-intact 4, normal range of motion, normal pulses, atraumatic. Left leg-patient does have some faint erythema over the area of the ankle and dorsum of the foot with patchy erythematous rash noted. No lymphogenic streaking noted. Neurovascular intact. Patient has some mild soft tissue swelling about the ankle. Mild tenderness on range of motion of the ankle. D-dimer obtained was elevated at one-point Test Results: [02.] Emergency Department Course and Treatment: Patient was given 1 dose of Xarelto 20 mg p.o. and 1 dose of Keflex 500 mg's p.o. [] Treatment Plan: [Patient will be treated with Keflex and I will have him come back tomorrow to have an ultrasound of the left lower extremity rule out DVT. At this point my suspicion for gout is low although I did advise patient to use ibuprofen as tolerated for discomfort. Patient also states he has pain medication at home.] Disposition: [Discharged home in stable condition] Impression: [Left ankle pain Cellulitis] This note was generated with [employer] dictation software. It may contain incorrect words, spelling, and punctuation that were not noted in review of the chart prior to signing ED Disposition - Plan for ED Patient: Chief Complaint: Lower Extremity Injury Referrals: Wade Padilla MD [Primary Care Provider] - What to do if you have Problems For any increased pain, shortness of breath, bleeding, nausea or vomiting, chest pain, or any unexpected problems, contact your Primary Care Provider. Call [facility] ([phone]) or report to the closest Emergency Room. Call 911 if necessary. 04/12/18 1914 <Electronically signed by Ida Cruz DO> Date Ida Cruz DO Cosigner Signature (If Indicated): Date CC: Wade Padilla MD D-DIMER QUANTITATIVE Collected: 04/12/2018 Status: F Source: [place] (DVT/PE) 6:30 PM [facility] REPOSITORY TYPE CODE TESTS RESULT OUT OF RANGE REFERENCE UNITS LAB L300.8000 0.27-0.49 FEU/ug/m High alert D-DIMER 1.02 QUANT Result Comment: D-Dimer ELEVATED (>0.49): Additional studies and clinical assessments are indicated to conclude diagnosis of: Deep Vein Thrombosis (DVT) or Pulmonary Embolism (PE) CRITICAL VALUE VERIFIED. CALLED TO ESPRINGER 04/12/18 1852 Rebecca Carey. RESULTS READ BACK BY SAME . Performed By: #### L300.8000 #### [facility] [address] [place], [address] INTERNAL MEDICINE Observed: 01/11/2018 Status: F Source: [place] OFFICE VISIT 9:14 AM [facility] [address] [place] [address] OFFICE VISIT Date of Service: 01/09/18 MR#: [id number] Acct: [id number] Name: NAKUL BASSETT Rep #: [id number] : 1950 Provider: Chris Scanlon NP Age/Sex: 67/M [place] [facility] Status: Signed Intake Vital Signs01/09/18 Body Mass Index (BMI) 28.7 01/09/18 Blood Pressure 143/83 01/09/18 Height 5 ft 10 in 01/09/18 Weight: 211 lb 01/09/18 Body Mass Index (BMI) 30.2 01/09/18 Blood Pressure 144/70 Intake Visit Reasons: 3 M FU Chief Complaint: 3 mo follow up Is patient in pain?: No Allergies Iodinated Contrast- Oral and IV Dye [Iodinated Contrast Media - IV Dye] Allergy (Verified 01/09/18 09:07) Unknown Medications c-pap MISCELLANEOUS 10/10/17 [History Confirmed 01/09/18] miscellaneous medical supply misc See Dose Instructions .ROUTE .MEDSUPPLY #1 ea 10/10/17 [History Confirmed 10/15/17] fluticasone 50 mcg/actuation nasal spray,suspension 2 spray INTRANASAL DAILY #16 g 10/15/17 [Rx Confirmed 01/09/18] amoxicillin 875 mg-potassium clavulanate 125 mg tablet 1 tab PO BID #20 tab 01/09/18 [Rx Confirmed 01/09/18] hydrocodone 5 mg-acetaminophen 325 mg tablet 1 tab PO Q6H PRN 01/09/18 [History Confirmed 01/09/18] meloxicam 15 mg tablet 15 mg PO QDAY 01/09/18 [History Confirmed 01/09/18] rosuvastatin 10 mg tablet 10 mg PO QHS #90 tab 01/09/18 [Rx Confirmed 01/09/18] [facility] Medical History Acute sinusitis (Acute) Asthma with acute exacerbation (Acute) Cough (Acute) Dyspnea (Acute) Wheezing (Acute) Bronchitis (Chronic) COPD (chronic obstructive pulmonary disease) (Chronic) Chronic sinusitis (Chronic) Heart murmur (Chronic) Hyperlipidemia (Chronic) Hypersomnia (Chronic) Tobacco abuse (Chronic) Surgical History hammer toe surgery (Acute) H/O knee surgery (Resolved) Right foot operation after an accident (Resolved) Right nostril growth removed (Resolved) ruptured naval (Resolved) Family History Father Lung cancer Uncle Cancer Grandfather Myocardial infarction Grandmother Myocardial infarction Mother Myocardial infarction, Onset Age: 90 Social History Smoking Status: Current every day smoker alcohol intake: current alcohol intake frequency: a few times a month substance use type: does not use what type of physical activity do you participate in: none HPI HPI Chief Complaint: 3 mo follow up Details: NAKUL BASSETT, is a 67 M who presents to the office today for a 3 month follow-up for his chronic conditions which include lower extremity peripheral neuropathy, COPD/chronic bronchitis, LIZA, hyperlipidemia, and tobacco use. With regard to his peripheral neuropathy the patient has been wearing his compression stockings throughout the day, and notes that this has significantly improved his symptoms. He notes that he also wears his CPAP every night and sometimes during daytime naps for his LIZA. He follows with pulmonary for his chronic lung disease and recently had a chest x-ray for an outpatient surgery that showed chronic changes consistent with COPD. With regard to his tobacco use, the patient notes he continues to smoke approximately half a pack of cigarettes a day, he is hesitant to try any pharmacologic management for smoking cessation at this time. With regard to his hyperlipidemia, recent lab work does show elevated LDL and cholesterol. The patient has not been on any lipid-lowering agents in the past and recent carotid artery duplex demonstrated less than 50% atherosclerotic changes bilaterally. Patient also complains of some intermittent left sinus pain, facial swelling, and fullness in his left ear for the past several weeks. He denies any associated fevers, chills, localized redness, or systemic symptoms of infection. The patient otherwise denies any nausea, vomiting, shortness of breath, chest pain or pressure, palpitations, orthopnea, lower extremity edema, syncope or presyncopal episodes. ROS Const Constitutional: Positive for decreased energy; no weakness, frequent falls, change in appetite, fatigue or excessive sweating Eyes Eyes: No blurry vision, change in vision, double vision, discharge or visual disturbances ENT ENT: Positive for ear pressure, sinus pain (L>R) and post nasal drip; no abnormal hearing, ear pain, tinnitus or dizziness/vertigo Resp Respiratory: Positive for cough (chronic); no shortness of breath or wheezing Cardio Cardiology: Positive for chest pain at rest (rare, intermittent, non-exertional, lasts seconds, in L 7th rib area) Symptoms: Sharp; no excessive sweating, orthopnea, radiating jaw, neck or arm pain or shortness of breath Gastro GI: No abdominal pain, change in bowel habits, constipation, diarrhea, nausea/dyspepsia or vomiting Genitourinary Male: No difficulty urinating, burning urination, painful urination, urinary incontinence, urinary frequency, urinary urgency, urinary hesitancy, urinary retention, blood in urine, Frequent nighttime urination/ nocturia, sexual problems, testicle lump or testicle pain Musc Musculoskeletal: Positive for other (Swelling Left face to ear off AND on); no joint pain, back pain, joint swelling, limited range of motion, muscle weakness, numbness or tingling Skin Skin: Positive for sores (Area above Rt knee); no change in skin color, itching, rash or wounds Breast Breast: No breast lump or breast pain Neuro Neurology: No abnormal hearing, numbness, tingling, unsteady gait/balance, dizziness, weakness, frequent falls, loss of vision, memory loss or visual disturbances Psych Psychiatric: No memory loss, No anxiety, No change in appetite, No depression, No Thoughts of harming yourself/Others Endo Endocrine: No fatigue, heat intolerance, increased thirst/drinking, increased hunger, increased urination or excessive sweating Aller/Imm Allergy/Immunologic: No wheezing, itchy eyes or seasonal allergy symptoms Titi/Lymp Hematologic/Lymphatic: No easy bleeding, easy bruising or enlarged lymph nodes Exam Const General: cooperative, comfortable, no acute distress, not in acute distress, well developed Nutritional Appearance: average body habitus, well nourished Orientation: alert, oriented x3 Limitations: mental status not altered [facility] Head: normal to inspection Ears: hearing grossly normal bilaterally, TM normal on the right, left TM abnormal, TM abnormal bulging on the left and with fluid behind the TM on the left Nose: external nose normal, nasal discharge clear Face and sinus: edema on the left maxilla, sinus tenderness maxillary (L>R) Mouth: oral mucosae normal Throat: postnasal drainage Neck Neck: normal visual inspection, full ROM Lymphatic: lymphadenopathy bilateral anterior cervical: tender and soft Resp Effort AND Inspection: prolonged expiratory phase, no use of accessory muscles, able to speak in complete sentences, symmetric chest movement, cough Quality of cough: dry, no respiratory distress, no pursed lip breathing Auscultation: Right: Clear to Auscultation, Inspiratory Wheezes, Bilateral: Diminished Base Tactile Fremitus: tactile fremitus absent Cardio Palpation: normal PMI Rate: regular rate Heart Sounds: S1 normal, S2 normal, normal S1 and S2, no click, no gallops, no murmurs, no rubs Musc Musculoskeletal: No muscle weakness Neuro General: alert, awake, oriented x3, CN's II-XI intact bilaterally Speech: speech normal Gait: normal gait Motor: muscle tone normal throughout Extrem General: normal to inspection, normal gait, no edema, no pedal edema, full ROM, no pedal edema Psych Appearance: grossly normal Mental Status: mental status grossly normal Affect: normal affect Speech and Movement: speech and movement normal Attitude: cooperative Thought Process: normal Thought Content: normal Judgment: judgment good Assessment AND Plan 1. Otitis media of left ear H66.92 Plan Given ear exam as above and feeling of fullness and tenderness for over a week, start patient on Augmentin twice daily for 10 days. Patient notes that he has Flonase at home, but takes it rarely. Patient encouraged to use his Flonase 1-2 sprays in each nostril twice a day. 2. Acute sinusitis J01.90 Plan See plan as above for otitis media. 3. Hyperlipidemia E78.5 Plan Patient is agreeable to starting Crestor 10 mg daily and continuing aspirin 81 mg daily. Patient is instructed on possible common side effects and advised to take the Crestor at bedtime to reduce likelihood of these. Patient is to have a CMP in 6 weeks and a repeat lipid panel in 3 months just prior to his next follow-up visit. Orders Orders: 4. Tobacco abuse Z72.0 Plan Unfortunately the patient is not interested in pharmacologic intervention for smoking cessation. He continues to smoke one half pack a day. Encouraged and advised patient that we will be available for assistance when desired. 5. HTN (hypertension) I10 Plan Patient's blood pressure slightly elevated at 144/70 in the office today. Patient notes that when he checked it at home recently his systolic blood pressure was somewhere in the 150s. Patient has not had a formal diagnosis of hypertension and is not currently on any antihypertensive. He is instructed to keep a log of blood pressures over the next 2 weeks and call the office to report these. Plan Detail Other Orders Orders: Other Medications New: Follow Up 3 months or sooner if needed Coding Level of Care Code Off vis,est,level 4 Diagnoses Otitis media of left ear H66.92 Acute sinusitis J01.90 Hyperlipidemia E78.5 Tobacco abuse Z72.0 HTN (hypertension) I10 01/11/18 0914 <Electronically signed by Chris DEL RIO> Date Chris DEL RIO Cosigner Signature: Date (if applicable) CC: VENOUS DUPLEX LOWER Observed: 12/15/2017 Status: F Source: [place] EXTREMITY 12:03 PM [facility] Cardiovascular Services [address] [place] [address] Venous Duplex US, Unilateral 12/13/17 1109 MR#: [id number] Acct: [id number] Name: NAKUL BASSETT Rep #: [id number] : 1950 67 From: Ivan De Luna MD Attending Dr: Yang Abudl DO Status: REG CLI Ordering Dr: Yang Abdul DO Date: 12/13/17 Location: CVS Sex: M C Admitted: Reason For Study: LLE PAIN RIGHT LEFT CFV is compressible, spontaneous, phasic, GSV is normal. competent and demonstrates normal CFV is compressible, spontaneous, phasic, augmentation. competent, and demonstrates normal Procedure augmentation. Exam performed in department. FV is compressible, spontaneous, phasic, The study was technically difficult. competent and demonstrates normal PT could not tolerate compression at left augmentation. knee area; relied on color and pulsed wave POP V is spontaneous, phasic, competent and doppler. demonstrates normal augmentation. Unable to A preliminary report was called and/or faxed compress due to knee pain; relied on color to Dr. Abdul @ [phone] @ 11:45 am. doppler and pulsed wave doppler to assess. T/P Trunk is compressible. PTV is compressible. LT PerV is compressible. Interpretation Summary Deep veins of the left lower extremity are patent and compressible segmentally. There is no evidence of left lower extremity deep vein thrombosis. Valvular competence appears intact within the proximal deep venous system on the left . The left greater saphenous vein appears patent and compressible segmentally. Ordering Physician: Yang Abdul Referring Physician: Wade Padilla Performed By: Deana Downey, RDCS, RVT 12/15/17 1202 Date Ivan De Luna MD CC: Wade Padilla MD; Yang Abdul DO Date Dictated: 12/13/17 1109 Date Transcribed: 12/15/17 1202 Hostel Parent: Signed 12 LEAD ELECTROCARDIOGRAM Observed: 12/05/2017 Status: F Source: JUL[place]NA 3:20 PM [facility] Cardiovascular Services [address] [place] [address] 12 Lead EKG 12/04/17 1002 MR#: [id number] Acct: [id number] Name: NAKUL BASSETT Rep #: [id number] : 1950 67 From: oJsafat Rhodes MD Attending Dr: Yang Abdul DO Status: REG CLI Ordering Dr: Yang Abdul DO Date: 12/04/17 Location: LAB Sex: M C Admitted: Test Reason : PRE-OP Blood Pressure : / mmHG Vent. Rate : 050 BPM Atrial Rate : 050 BPM P-R Int : 150 ms QRS Dur : 088 ms QT Int : 448 ms P-R-T Axes : 062 073 064 degrees QTc Int : 408 ms Sinus bradycardia Otherwise normal ECG Confirmed by MEAGAN GUNDERSON, JOSAFAT ([id number]), international editorial producer CARLY NORIEGA ([id number]) on 12/05/2017 3:20:13 PM Referred By: Yang Abdul Confirmed By:JOSAFAT RHODES MD 12/05/17 1520 Date Josafat Rhodes MD CC: Wade Padilla MD; Yang Abdul DO Signed CHEST PA AND LATERAL Observed: 12/04/2017 Status: F Source: JULIANA 10:07 AM [facility] REPOSITORY [facility] Imaging Services [address] [place] [address] Chest PA and Lateral MR#: [id number] Acct: [id number] Name: NAKUL BASSETT Rep #: [id number] : 1950 M 67 From: Maribell Ellison MD PCP: Wade Padilla MD Status: REG CLI Study: Chest PA and Lateral Date of Exam: 12/04/17 Exam# [id number] Ordering Dr: Yang Abdul DO STUDY: X-RAY CHEST REASON FOR EXAM: Male, 67 years old. Post operative evaluation for left knee arthroscopy, medial meniscectomy and chondroplasty. TECHNIQUE: PA and lateral views of the chest. COMPARISON: Prior chest radiograph of June 18, 2017. FINDINGS: Mild hyperexpansion. Negative for consolidation, focal atelectasis or pleural effusion. There is no demonstrated pleural abnormality. Normal size heart. Normal mediastinum and cher. Normal visualized pulmonary arteries. Normal visualized aortic arch and descending thoracic aorta. There are diffuse degenerative changes of the visualized thoracic spine. Normal visualized ribs, clavicles, and shoulders. There is no demonstrated abnormality of the visualized soft tissue structures of the upper abdomen. RAD/Chest PA and Lateral IMPRESSION: Mild hyperexpansion suggesting a component of COPD without other acute cardiopulmonary findings. Electronically Signed: Maribell Ellison MD at 22:43 EDT , Service support , CC: Wade Padilla MD; Yang Abdul DO Hostel Parent: Signed CBC-COMPLETE BLOOD CNT Collected: 12/04/2017 Status: F Source: JUL[place] NO DIFF 9:47 AM [facility] TYPE CODE TESTS RESULT OUT OF RANGE REFERENCE UNITS LAB L100.1000 4.4-11.0 K/mm3 Normal WBC 5.3 LAB L100.1200 4.6-6.2 M/mm3 Normal RBC 4.84 LAB L100.1300 13.0-16.5 g/dl Normal HGB 16.3 LAB L100.1400 40-54 % Normal HCT 49.5 LAB L100.1500 80-94 fL High MCV 102.3 LAB L100.1600 27.0-32.0 pg High MCH 33.7 LAB L100.1700 32-36 g/gl Normal MCHC 32.9 LAB L100.1810 11.6-14.6 % Normal RDW CV 13.6 LAB L100.1820 35.1-43.9 fl High RDW SD 51.1 LAB L100.1900 150-450 K/mm3 Normal PLT 160 LAB L100.2000 6.2-12.0 fl Normal MPV 10.1 Performed By: #### L100.0500 #### [facility] [address] [place], [address] BASIC METABOLIC Collected: 12/04/2017 Status: F Source: [place] PROFILE (BMP) 9:47 AM [facility] TYPE CODE TESTS RESULT OUT OF RANGE REFERENCE UNITS LAB L501.0100 74-106 mg/dL Normal GLU 104 Result Comment: Fasting Glucose result from 100 to 125 mg/dL suggests IMPAIRED HOMEOSTASIS per A.D.A. criteria. Please note revised GLUCOSE reference range effective 2017. LAB L501.1000 7-18 mg/dL Normal BUN 14 LAB L501.1100 0.70-1.30 mg/dL Normal CREAT,SERUM 0.98 Result Comment: The validity of the calculated GFR AND GFRAA in patients over 70 years has not been determined. Clinical correlation is essential. LAB L501.1110 >60 mL/min Normal EST GFR 81 Result Comment: Non- GFR Calc LAB L501.1115 >60 mL/min Normal EST GFR - AA 98 Result Comment: GFR Calc LAB L501.1300 10-20 RATIO Normal BUN/CRE 14.2 LAB L501.2200 8.5-10.1 mg/dL CA Normal 8.8 LAB L501.5300 136-145 mmol/L NA Normal 137 LAB L501.5600 3.5-5.1 mmol/L K Normal 4.4 LAB L501.5900 98-107 mmol/L CL Normal 104 LAB L501.6100 21.0-32.0 mmol/L Normal CO2 27.0 LAB L501.6200 5-15 Normal GAP 6 Performed By: #### L500.2500 #### [facility] [address] [place], [address] PULMONARY VISIT REPORT Observed: 10/15/2017 Status: F Source: JULIANA 12:20 PM [facility] [address] [place], [place] [address] OFFICE VISIT Date of Service: 10/15/17 MR#: [id number] Acct: [id number] Name: NAKUL BASSETT Rep #: [id number] : 1950 Provider: Stephie Dickinson Age/Sex: 66/M [facility] Status: Signed Assessment AND Plan 1. Simple chronic bronchitis J41.0 Status Chronic Plan He has not had any recent exacerbation of his bronchitis. Last pulmonary function test do not show COPD, however he continues to smoke. Repeat pulmonary function test in 6 months, follow-up with Dr. La in 6 months. The patient plans to finish the Stiolto that he currently has, he will then switch to bevespi. He will stop in the office for a sample of bevespi prior to changing medications. He has been encouraged to contact the office within 48 hours of developing symptoms of a COPD exacerbation, symptoms were covered with the patient which include increase in wheezing, purulent sputum or increase in shortness of breath. Orders Orders: 2. LIZA (obstructive sleep apnea) G47.33 Status Chronic Plan He has been successful at losing approximately 16 pounds, I did discuss the impact of obesity on obstructive sleep apnea. At some point, typically around 20% weight loss, the patient may require a titration study. The patient is using and benefiting from current CPAP settings. No indication for titration study at this time. He conveys understanding. Follow-up with Dr. La in 6 months. 3. Tobacco abuse Z72.0 Status Chronic Plan [place] 12 minute discussion with the patient on smoking cessation. He reports that he was previously smoking 1 pack per day, has cut back to one half pack per day. We discussed the nicotine addiction as well as the psychological addiction of smoking. We discussed nicotine replacements and also medication aids. At this time, he plans to stop smoking, cold turkey, once the cigarette he currently owns are gone. He would like to be smoke-free when he follows up with Dr. La in 6 months. continue to encourage smoking cessation. The patient has been educated that he will require pulmonary function testing every 6 months while he continues to smoke. 4. PND (post-nasal drip) R09.82 Status Acute Plan Postnasal drip is more bothersome at night. The patient will try Flonase 2 sprays each nostril 1 hour before bedtime. After using the medication for 2 weeks, if there is no sign of improvement with his symptoms he will stop taking the medication. Follow-up with Dr. La in 6 months. He has been encouraged to contact the office with an update on how he is doing on the new medication. Plan Detail Other Orders Orders: Other Medications New: Follow Up 6 Months ([facility]) HPI 3 M FU: Chief Complaint: LIZA HPI Comments Details: This is a 66 year old flex m, currently under the care of Dr. Padilla [facility], here to follow up for sleep apnea, chronic bronchitis. Current use of pressure support therapy is on average of 5 hours per night with current settings of 9 cmH2O. Last sleep study was completed on August 26, 2017, showing that is mild obstructive sleep apnea is controlled with a nasal continuous positive airway pressure of 9 cm of water. NAKUL denies any daytime somnolence, dry mouth in the morning, nocturia, snoring through the mask, morning headaches or difficulty with mask leaks. NAKUL reports feeling rested in the morning and is benefitting from current therapy. Compliance report was reviewed and shows 87% compliance, current AHI is 1.4 events per hour and leaks do not appear to be an issue. He has not been seen in the urgent care or emergency department for any respiratory illnesses since his last office visit. He has not required antibiotic or prednisone taper since his last office visit. He is compliant with his Stiolto daily. He denies any medication side effects such as sore throat or hoarseness. Currently, he denies any wheezing, chest tightness or shortness of breath at rest. He continues to have some mild shortness of breath on exertion. He does have a persistent dry cough. The cough is more prevalent at night, and he reports an increase in postnasal drip when lying down. He also reports an increase in nasal congestion in the morning following removing his CPAP. It typically resolves after a few hours, without additional intervention. Is not currently using any pheh-npj-weanqad medications. See complete review of systems. Intake Vital Signs10/15/17 Body Mass Index (BMI) 28.7 10/15/17 Height 5 ft 10 in 10/15/17 Weight: 203 lb Intake Visit Reasons: 3 M FU Chief Complaint: follow-up visit Accompanied by: Self Allergies Iodinated Contrast- Oral and IV Dye [Iodinated Contrast Media - IV Dye] Allergy (Verified 10/15/17 09:12) Unknown Medications c-pap MISCELLANEOUS 10/10/17 [History Confirmed 10/15/17] glycopyrrolate 9 mcg-formoterol 4.8 mcg HFA aerosol inhaler 2 puff INHALATION BID 10/10/17 [History Confirmed 10/15/17] miscellaneous medical supply misc See Dose Instructions .ROUTE .MEDSUPPLY #1 ea 10/10/17 [History Confirmed 10/15/17] fluticasone 50 mcg/actuation nasal spray,suspension 2 spray INTRANASAL DAILY #16 g 10/15/17 [Rx Confirmed 10/15/17] tiotropium 2.5 mcg-olodaterol 2.5 mcg/actuation mist for inhalation 2 puff INHALATION QDAY 10/15/17 [History Confirmed 10/15/17] [facility] Medical History Acute sinusitis (Acute) Asthma with acute exacerbation (Acute) Cough (Acute) Dyspnea (Acute) Wheezing (Acute) Bronchitis (Chronic) COPD (chronic obstructive pulmonary disease) (Chronic) Chronic sinusitis (Chronic) Heart murmur (Chronic) Hyperlipidemia (Chronic) Hypersomnia (Chronic) Tobacco abuse (Chronic) Surgical History hammer toe surgery (Acute) H/O knee surgery (Resolved) Right foot operation after an accident (Resolved) Right nostril growth removed (Resolved) ruptured naval (Resolved) Family History Father Lung cancer Uncle Cancer Grandfather Myocardial infarction Grandmother Myocardial infarction Mother Myocardial infarction, Onset Age: 90 Social History Smoking Status: Current every day smoker alcohol intake: current alcohol intake frequency: a few times a month substance use type: does not use what type of physical activity do you participate in: none Review of Systems Const CONSTITUTIONAL: Positive body ache and sleeping in chair; negative anorexia, chills, daytime sleepiness, fever(s), night sweats, oral thrush, stops breathing during sleep, weight loss, fatigue, weight loss, weight gain, frequent colds, seasonal allergies, other, headache(s) or orthopnea EETM Ear Nose Throat Mouth: Positive hearing normal, dry mouth in morning, nasal discharge and post nasal drip; negative hard of hearing, hoarseness, change in vision, itchy eyes, eye pain, swallowing Difficulty, ear pain, nose bleed, headache(s), mouth pain, nasal congestion, sinus pain, sinus pressure, sore throat or other Cardio Cardiovascular: Positive irregular heart rhythm, edema and murmur; negative chest pain, chest pain at rest, chest pain with activity, shortness of breath when lying down, palpitations or other Resp Respiratory: Positive as per HPI and cough cough: Positive productive color: Positive white; negative shortness of breath, pain with cough, wheezing, chest congestion, chest tightness, pain on inspiration, inhalers, increase use of rescue inhalers, snoring, apnea or other Gastro Gastrointestional: Negative bloody stools, change in appetite, difficulty swallowing, reflux, hematemesis, melena stool, loose stool, constipation or other Genitourinary: Positive nocturia; negative blood in urine, pain with urination or other Musc Musculoskeletal: Positive back pain; negative body pain, neck pain or other Skin/Breast Skin/Breast: Positive itching; negative dry skin, rash, unusual bruising, breast lump or other Neuro Neurological: Negative restless legs, confusion, weakness or other Psych Psychocological: Negative abnormal sleep pattern, anxiety, thoughts of hurting self/others, hopelessness or other Lymph Lymphatic: Positive easy bleeding and easy bruising; negative swollen lymph nodes or other Exam Const Constitutional: Positive conversant, cooperative, in no acute respiratory distress, healthy appearing, well developed, well nourished and good hygiene Head Head: Positive normocephalic and atraumatic; negative cyanosis of lips/distal nose Eyes Eye: Positive clear conjunctiva and nystagmus; negative scleral abnormality Ears Ear: Positive hearing normal and external ears normal; negative hard of hearing Nose Nose: Positive external nose normal and no nasal discharge; negative epistaxis Mouth Mouth: Positive post nasal drip, oral mucosae normal, no lesions, dentures and posterior oropharynx is adequate; negative malodorous breath or oral thrush present Mallampati Score: II: Mallampati Score Neck Neck: Positive normal visual inspection, full ROM and trachea midline; negative lymphadenopathy, JVD or tender Chest Wall Chest: Positive normal inspection of the chest and symmetric chest movement; negative increased A/P diameter Resp lung sounds: Positive clear to auscultation, good air exchange, normal expiratory time and normal respiratory effort; negative diminished, wheezes, rhonchi, rales, dullness to percussion or wheeze present on forced exhalation Cardio Cardiac: Positive murmur murmur: Positive RUSB, LUSB and systolic, regular rate, regular rhythm, S1 normal and S2 normal GI GI: Positive normal to inspection and normal bowel sounds; negative distended Genitourinary: Positive deferred Musc Musculoskeletal: Positive steady gait and ROM normal; negative kyphosis or scoliosis Skin Pulmonary Skin Exam: Positive intact; negative rash, lesion, ulcers, erythema, scaly or dermal atrophy Pulses Pulse: Yes pulses normal x4 extremities Extremities Extremities: Yes capillary refill normal, No clubbing, No cyanosis, No edema, No stasis dermatitis Neuro Neurologic: Yes conversant, Yes no focal neuro deficits, Yes cooperative, Yes normal cognition, Yes normal coordination, Yes understands questions, Yes normal concentration Lymph Lymphatic: No lymphadenopathy, No tenderness, No cervical adenopathy, No axillary adenopathy Psych Appearance: Positive grossly normal, eye contact and well kempt Mental Status: Positive mental status grossly normal Mood: Positive congruent mood Affect: Positive normal affect Office Procedures Smoking Cessation Time Spent greater than 10 minutes: Yes Coding Level of Care Code Off vis,est,level 4 Diagnoses Simple chronic bronchitis J41.0 Chronic bronchitis type: simple LIZA (obstructive sleep apnea) G47.33 Tobacco abuse Z72.0 PND (post-nasal drip) R09.82 Additional Codes Time Spent - greater than 10 minutes: Yes ([id number]) 10/15/17 1220 <Electronically signed by Stephie DEL RIO> Date Stephie DEL RIO Cosigner Signature: Date (if applicable) CC: Wade Padilla MD INTERNAL MEDICINE Observed: 10/11/2017 Status: F Source: JULIANA OFFICE VISIT 10:49 AM [facility] [address] [place] [address] OFFICE VISIT Date of Service: 10/10/17 MR#: [id number] Acct: [id number] Name: ANKUL BASSETT Rep #: [id number] : 1950 Provider: Chris Scanlon NP Age/Sex: 66/M Location[place] [facility] Status: Signed Intake Vital Signs10/10/17 Height 5 ft 10 in 10/10/17 Weight: 200 lb 10/10/17 Body Mass Index (BMI) 28.7 10/10/17 Blood Pressure 143/83 10/10/17 Blood Pressure Location Lt brachial Intake Visit Reasons: 3 M FU Chief Complaint: follow-up visit Is patient in pain?: Yes (tail bone intermittently) Pain scale (1-10): 7 Allergies Iodinated Contrast- Oral and IV Dye [Iodinated Contrast Media - IV Dye] Allergy (Verified 11/19/16 15:31) Unknown Medications c-pap MISCELLANEOUS 10/10/17 [History Confirmed 10/10/17] glycopyrrolate 9 mcg-formoterol 4.8 mcg HFA aerosol inhaler 2 puff INHALATION BID 10/10/17 [History Confirmed 10/10/17] miscellaneous medical supply misc See Dose Instructions .ROUTE .MEDSUPPLY #1 ea 10/10/17 [History Confirmed 10/10/17] [facility] Medical History (Reviewed 10/11/17 @ 9:46 am by QUANG Delacruz) Acute sinusitis (Acute) Asthma with acute exacerbation (Acute) Cough (Acute) Dyspnea (Acute) Wheezing (Acute) Bronchitis (Chronic) COPD (chronic obstructive pulmonary disease) (Chronic) Chronic sinusitis (Chronic) Heart murmur (Chronic) Hyperlipidemia (Chronic) Hypersomnia (Chronic) Tobacco abuse (Chronic) Surgical History (Reviewed 10/11/17 @ 9:46 am by QUANG Delacruz) hammer toe surgery (Acute) H/O knee surgery (Resolved) Right foot operation after an accident (Resolved) Right nostril growth removed (Resolved) ruptured naval (Resolved) Family History (Reviewed 10/11/17 @ 9:46 am by QUANG Delacruz) Father Lung cancer Uncle Cancer Grandfather Myocardial infarction Grandmother Myocardial infarction Mother Myocardial infarction, Onset Age: 90 Social History Smoking Status: Current every day smoker alcohol intake: current alcohol intake frequency: a few times a month substance use type: does not use what type of physical activity do you participate in: none HPI 3 M FU: Chief Complaint: follow-up visit Details: NAKUL BASSETT, is a 66 M who presents to the office today for a follow-up visit of his multiple chronic conditions and with acute complaint of rectal tags. He has a past medical history as listed above. The patient states that since his previous office visit, he has been doing well. He has been following up with multiple providers. He states that he had a venous study done by his vascular specialist and why there were no obvious abnormalities, they recommended that he start wearing compression stockings for his intermittent claudication and peripheral neuropathy. He states that he has been researching online and wonders if his peripheral neuropathy in his feet could be caused by undiagnosed diabetes. He denies any history of diabetes however. The patient states he is following up with pulmonology who diagnosed him with obstructive sleep apnea and he is currently on CPAP therapy. Unfortunately, he continues to smoke and is currently down to one half pack per day, he refuses pharmacologic therapy at this time. He also notes that he is following up with podiatry for a hammertoe surgery. In that he is following up with an orthopedic surgeon who gives him gel Visk injections in his knees for his osteoarthritis. His main concern today is that he wants his rectal tag examined. He states that he does have a past medical history of hemorrhoids, however they have not really bothered him in the past and he denies any blood in the stool. He does state he is up-to-date on his colonoscopy as he just had one within the past 2 years and was told that he had a 10 year window until it was recommended that his colonoscopy be repeated. ROS Const Constitutional: No weight change, body ache, chills, fatigue, sleep problems, fever(s), change in appetite, snoring, weakness, frequent falls, headache(s) or excessive sweating Eyes Eyes: No change in vision, eye pain, light sensitivity or blurry vision ENT ENT: No headache(s), abnormal hearing, ear pain, tinnitus, nasal congestion, sore throat or neck pain Resp Respiratory: No snoring, cough, shortness of breath or wheezing Cardio Cardiology: No excessive sweating, chest pain at rest, chest pain with exertion, shortness of breath, dyspnea on exertion, palpitations, orthopnea or lightheadedness Gastro GI: No abdominal pain, change in bowel habits, constipation, diarrhea, vomiting, nausea/dyspepsia or cramping Musc Musculoskeletal: Positive for numbness, tingling (feet and toes) and other (left knee pain); no neck pain, abnormal walking, joint pain, back pain, limited range of motion or muscle weakness Skin Skin: No redness, dry skin, itching, lesions, wounds or rash Neuro Neurology: Positive for numbness and tingling (feet and toes); no weakness, frequent falls, headache(s), abnormal hearing, abnormal walking, abnormal speech, dizziness or memory loss Psych Psychiatric: No change in appetite, No memory loss, No anxiety, No depression, No Thoughts of harming yourself/Others Endo Endocrine: No fatigue, excessive sweating, cold intolerance, increased thirst/drinking, heat intolerance, flushing or increased hunger Aller/Imm Allergy/Immunologic: No wheezing, itchy eyes, hives or seasonal allergy symptoms Titi/Lymp Hematologic/Lymphatic: No easy bleeding, easy bruising or enlarged lymph nodes Exam Const General: cooperative, comfortable, no acute distress Nutritional Appearance: average body habitus, well nourished Orientation: alert, oriented x3 Limitations: mental status not altered [facility] Head: normal to inspection Ears: hearing grossly normal bilaterally Nose: external nose normal Eyes General: appearance normal, both eyes and all related structures Resp Effort AND Inspection: normal respiratory effort, able to speak in complete sentences, normal respiratory pattern, symmetric chest movement, no audible wheezes, no cough Auscultation: Bilateral: Diminished Lung Sounds, Expiratory Wheezes Cardio Palpation: normal PMI Rate: regular rate Heart Sounds: S1 normal, S2 normal, murmur systolic II/ and at the right sternal border GI Inspection: normal to inspection Auscultation: normal bowel sounds, no hyperactive bowel sounds, no hypoactive bowel sounds Palpation: soft, no hepatosplenomegaly Rectal Exam: hemorrhoids (non thrombosed external hemorrhoids present), visual inspection abnormal hemorrhoids Musc Musculoskeletal: No joint tenderness, decreased ROM or muscle weakness Skin General: no rashes or lesions noted, elasticity normal, turgor normal Lesions: no lesions Rashes: no rashes Neuro General: alert, awake, oriented x3, CN's II-XI intact bilaterally Speech: speech normal Gait: normal gait Motor: muscle tone normal throughout Extrem General: normal to inspection, normal gait, no edema, no pedal edema Psych Appearance: grossly normal Mental Status: mental status grossly normal Affect: normal affect Attitude: cooperative Thought Process: normal Diabetic Foot Inspection: Yes calluses/corns, No foot deformity, No ulceration Pulses: L dorsalis pedis pulse: normal, R dorsalis pedis pulse: normal Monofilament exam: L great toe: decreased, R great toe: decreased Tuning fork: L great toe: normal, R great toe: normal Pinprick: L great toe: normal, R great toe: normal Assessment AND Plan 1. Hemorrhoids K64.9 Plan The patient does have hemorrhoids based on general exam. There are nonthrombosed at this time and he is not having any symptomatic rectal bleeding. Advised him to eat a high-fiber diet, not to strain while having a bowel movement, and to increase his fluid intake. 2. Peripheral neuropathy G62.9 Plan The patient does have intermittent claudication and peripheral neuropathy which he has been seen by a vascular specialist for. Venous studies reviewed, patient was advised to utilize compression stockings, however he has not started using these yet. If he continues to have neuropathy, may consider the use of gabapentin. We will however hold off at this time and advised him to utilize the compression stockings. Ordered a fasting blood glucose as well. 3. COPD (chronic obstructive pulmonary disease) J44.9 Plan Controlled on current therapy, will continue following up with pulmonary. Orders Orders: 4. LIZA (obstructive sleep apnea) G47.33 Plan Currently on CPAP therapy, continue to follow up with pulmonary. Orders Orders: 5. Hyperlipidemia E78.5 Plan Patient is not on any lipid-lowering agents and has not had lipids checked in some time, will check a lipid panel and make adjustments based on the results. Orders Orders: 6. Tobacco abuse Z72.0 Plan Unfortunately the patient continues to smoke and is unwilling to discuss cessation at this time. He states that he is currently down to one half pack per day and is not interested in pharmacologic management at this time. Plan Detail Other Orders Orders: Follow Up 3 Months Coding Level of Care Code Off vis,est,level 4 Diagnoses Hemorrhoids K64.9 Peripheral neuropathy G62.9 COPD (chronic obstructive pulmonary disease) J44.9 LIZA (obstructive sleep apnea) G47.33 Hyperlipidemia E78.5 Tobacco abuse Z72.0 10/11/17 1049 <Electronically signed by Chris Scanlon NATURAL SCIENCES MANAGER-C> Date Chris Scanlon NATURAL SCIENCES MANAGER-C Cosigner Signature: Date (if applicable) CC: CBC W/DIFF, AUTOMATED Collected: 10/10/2017 Status: F Source: [place] 11:09 AM [facility] REPOSITORY TYPE CODE TESTS RESULT OUT OF RANGE REFERENCE UNITS LAB L100.1000 4.4-11.0 K/mm3 Normal WBC 5.9 LAB L100.1200 4.6-6.2 M/mm3 Normal RBC 4.66 LAB L100.1300 13.0-16.5 g/dl Normal HGB 15.8 LAB L100.1400 40-54 % Normal HCT 48.0 LAB L100.1500 80-94 fL High MCV 103.0 LAB L100.1600 27.0-32.0 pg High MCH 33.9 LAB L100.1700 32-36 g/gl Normal MCHC 32.9 LAB L100.1810 11.6-14.6 % Normal RDW CV 14.0 LAB L100.1820 35.1-43.9 fl High RDW SD 52.3 LAB L100.1900 150-450 K/mm3 Normal PLT 171 LAB L100.2000 6.2-12.0 fl Normal MPV 10.0 LAB L100.2100 47-70 % Normal NEUT% 49.1 LAB L100.2200 19-41 % Normal LY% 37.4 LAB L100.2300 0-10 % High MONO% 11.4 LAB L100.2400 0-5 % Normal EO% 1.4 LAB L100.2500 0-1 % Normal BASO% 0.5 LAB L100.2550 0.0-0.9 % Normal IM GRAN % 0.200 Result Comment: IG% - Immature Granulocytes (promyelocytes, myelocytes and metamyelocytes) > 1% indicates that a LEFT SHIFT is Present. LAB L100.2620 2.0-7.7 X10 3/uL Normal Absolute Neut 2.9 LAB L100.2720 0.83-4.51 X10 3/ul Normal Absolute Lymph 2.20 Performed By: #### L100.0100, L500.4050, L500.4100, L501.9520 #### [facility] [address] [place], [place], [address] COMPREHENSIVE METABOLIC Collected: 10/10/2017 Status: F Source: [facility] 11:09 AM [facility] REPOSITORY TYPE CODE TESTS RESULT OUT OF RANGE REFERENCE UNITS LAB L501.0100 70-110 mg/dL Normal GLU 93 LAB L501.1000 7-18 mg/dL Normal BUN 15 LAB L501.1100 0.70-1.30 mg/dL Normal 1.01 CREAT,SERUM Result Comment: The validity of the calculated GFR AND GFRAA in patients over 70 years has not been determined. Clinical correlation is essential. LAB L501.1110 >60 mL/min Normal EST GFR 78 Result Comment: Non- GFR Calc LAB L501.1115 >60 mL/min Normal EST GFR - AA 95 Result Comment: GFR Calc LAB L501.1300 10-20 RATIO Normal BUN/CRE 14.9 LAB L501.1500 6.4-8.2 g/dL T Normal PROT 7.5 LAB L501.1800 3.2-5.0 g/dL Normal ALB 3.8 LAB L501.1950 2.2-4.2 g/dL Normal GLOB 3.7 LAB L501.2000 0.9-2.4 RATIO Normal A/G 1.0 LAB L501.2200 8.5-10.1 mg/dL CA Normal 8.8 LAB L501.4100 15-37 U/L Normal AST 16 LAB L501.4305 45-117 U/L Normal ALK P 64 LAB L501.4405 16-61 U/L Normal ALT 26 Result Comment: Please note revised ALT reference range effective 2017. LAB L501.4600 0.20-1.00 mg/dL Normal T BILI 0.40 LAB L501.5300 136-145 mmol/L Normal NA 138 LAB L501.5600 3.5-5.1 mmol/L Normal K 4.5 LAB L501.5900 98-107 mmol/L Normal CL 106 LAB L501.6100 21.0-32.0 mmol/L Normal CO2 27.0 LAB L501.6200 5-15 Normal GAP 5 Performed By: #### L100.0100, L500.4050, L500.4100, L501.9520 #### [facility] [address] [place], [place], [address] LIPID PROFILE Collected: 10/10/2017 Status: F Source: [place] 11:09 AM [facility] REPOSITORY TYPE CODE TESTS RESULT OUT OF RANGE REFERENCE UNITS LAB L501.4900 200 mg/dL High CHOL 232 Result Comment: <200 mg/dL Desirable 200-240 mg/dL Borderline >240 mg/dL High Risk LAB L501.5000 mg/dL Normal TRIG 117 Result Comment: The drugs N-Acetylcysteine and Metamizole may falsely depress this assay. Serum Triglycerides Reference Interval Normal <150 mg/dL Borderline high 150 - 199 mg/dL High 200 - 499 mg/dL Very High > or = 500 mg/dL LAB L501.6400 mg/dL Low HDL 37 Result Comment: The drugs N-Acetylcysteine and Metamizole may falsely depress this assay. Reference Range HDL <40 mg/dL Low HDL Cholesterol HDL >or= 60 mg/dL High HDL Cholesterol LAB L501.6500 0-130 mg/dL High LDL 172 LAB L501.6600 5-40 mg/dL Normal VLDL 23 Performed By: #### L100.0100, L500.4050, L500.4100, L501.9520 #### [facility] [address] [place], [place], [address] THYROID STIM HORMONE Collected: 10/10/2017 Status: F Source: JULIANA (TSH) 11:09 AM [facility] REPOSITORY TYPE CODE TESTS RESULT OUT OF RANGE REFERENCE UNITS LAB L501.9520 0.358-3.74 uIU/mL Normal TSH 1.85 Performed By: #### L100.0100, L500.4050, L500.4100, L501.9520 #### [facility] [address] [place], [address] ALLERGIES ALLERGIES DATE TYPE / CODE NAME / CODE REACTION SEVERITY SOURCE 07/13/2018 Drug Iodinated Unknown Unknown [facility] [place] Allergy/416 [facility]- [facility] 380484(SNOM and IV Repository ED CT) Dye/[id number](R XNORM) ENCOUNTERS ENCOUNTERS ADMIT/DISCHARGE ACCOUNT ADMITTING ENCOUNTER LOCATION SOURCE NUMBER CLASS 09/26/2018 [id number] Ambulatory [place] 4 [facility] ing:LAB Repository 07/29/2018/ [id number] Ambulatory BMSBuilding:B [place] 8 9 [place].[facility] Repository 07/10/2018/ [id number] [place], Inpatient [place] 8 8 [place] [facility] ing:RURoom: Repository NY388Upe: 1 07/10/2018 [id number] [place] Ambulatory BMSBuilding:B [place] 3 Michael [place].[facility] Repository 07/10/2018 [id number] [place] Ambulatory BMSBuilding:B [place] 2 [place] Repository 07/10/2018 [id number] [place] Ambulatory BMSBuilding:B [place] 6 [place].[facility] Repository 07/10/2018 [id number] [place] Ambulatory BMSBuilding:B [place] 8 [place].[facility] Repository 07/10/2018/ [id number] Ambulatory BMSBuilding:B [place] 8 2 MS.CF.[facility] Repository 07/06/2018/ [id number] [place], Inpatient [place] 8 3 [place] Encounter [facility] ing:MS7Nltc: Repository JO060Spv: 1 07/05/2018 [id number] [place] Ambulatory BMSBuilding:B [place] 6 [place] Repository 07/05/2018 [id number] [place] Ambulatory BMSBuilding:B [place] 7 [place] Repository 06/30/2018/ [id number] Emergency [place] 8 1 [facility]ED Repository 06/30/2018/ [id number] Ambulatory BMSBuilding:B [place] 8 1 MS.ELMO [facility] Repository 06/30/2018/ [id number] Emergency [place] 8 1 [facility] ing:ED Repository 06/25/2018/ [id number] Emergency [place] 8 0 [facility] ing:ED Repository 06/16/2018 [id number] Ambulatory [place] 0 [facility] ing:HPRAD Repository 06/16/2018/ [id number] Ambulatory BMSBuilding:B [place] 8 6 MS.ELMO [facility] Repository 05/30/2018/ [id number] Ambulatory BMSBuilding:B [place] 8 9 MS.ELMO [facility] Repository 05/10/2018 [id number] Ambulatory [place] 8 [facility] ing:LAB Repository 05/08/2018 [id number] Ambulatory [place] 8 [facility] ing:PSN Repository 05/08/2018 [id number] Ambulatory BMSBuilding:W [place] 7 [facility] Repository 05/02/2018 [id number] Ambulatory [place] 2 [facility] ing:CVS Repository 05/02/2018 [id number] Ambulatory BMSBuilding:W [place] 1 [facility] Repository 04/29/2018/ [id number] Ambulatory BMSBuilding:B [place] 8 0 MS.ELMO [facility] Repository 04/28/2018 [id number] Ambulatory [place] 0 [facility] ing:PSN Repository 04/28/2018 [id number] Ambulatory BMSBuilding:W [place] 8 [facility] Repository 04/15/2018/ [id number] Ambulatory BMSBuilding:B [place] 8 5 MS.[facility] Repository 04/13/2018/ [id number] Emergency [place] 8 0 [facility] ing:ED Repository 04/12/2018/ [id number] Emergency [place] 8 9 [facility] ing:ED Repository 01/09/2018/ [id number] Ambulatory BMSBuilding:B [place] 8 1 MS.BIM [facility] Repository 12/13/2017 [id number] Ambulatory [place] 7 [facility] ing:CVS Repository 12/04/2017 [id number] Ambulatory [place] 2 [facility] ing:LAB Repository 12/04/2017 [id number] Ambulatory BMSBuilding:W [place] 2 [facility] Repository 10/15/2017/ [id number] Ambulatory BMSBuilding:B [place] 8 2 [facility] Repository 10/10/2017 [id number] Ambulatory [place] 1 [facility] ing:MTLAB Repository 10/10/2017/ [id number] Ambulatory BMSBuilding:B [place] 8 3 MS.[facility] Repository 10/10/2017 [id number] Ambulatory BMSBuilding:B [place] 8 [facility] Repository PAYERS PAYERS ENCOUNTER GUARANTOR PAYER SUBSCRIBER SOURCE 09/26/2018 NAKUL Spencer Primary NAKUL A [place] [id number] Insurance:MEDICARE [facility] [id number] Number: Repository [address]Ofd: [phone] [id number] () Date:2018-09-26 09/26/2018 Secondary NAKUL A [place] Insurance:AARPPolicy RAFFDOB: [facility] Number: [id number] Hospital [id number] Repository Date:9378-56-42[address], [place] [address]XE: 09/26/2018 Tertiary NOT GIVENUNK [place] Insurance:SELF PAY [facility] Number: Effective Repository Date:2018-09-26 07/29/2018 NAKUL A Primary NAKUL A [place] [id number] Insurance:MEDICARE RAFFDOB: Community FABIOLA PART A [facility] [id number] Number: Repository [address]Odb: 330 [id number] (HP) Date:2018-07-21 07/29/2018 Secondary NAKUL A [place] Insurance:AARPPolicy RAFFDOB: Community Number: [id number] Hospital [id number] Repository Date:5751-63-78MK [address], [place] [address]KX: 07/29/2018 Tertiary NOT GIVENUNK [place] Insurance:SELF PAY [facility] Number: Effective Repository Date:2018-07-29 07/10/2018 NAKUL A Primary NAKUL A [place] [id number] Insurance:MEDICARE RAFFDOB: Community FABIOLA PART A [facility] [id number] [place] Number: Repository [address]Lli: 330 [id number] (HP) Date:2018-07-10 07/10/2018 Secondary NAKUL A [place] Insurance:AARPPolicy RAFFDOB: Community Number: [id number] Hospital [id number] Repository Date:0578-95-62[address], [place] [address]TF: 07/10/2018 Tertiary NOT GIVENUNK [place] Insurance:SELF PAY [facility] Number: Effective Repository Date:2018-07-10 07/10/2018 NAKUL A Primary NAKUL A [place] [id number] Insurance:MEDICARE RAFFDOB: Community FABIOLA PART A [facility] [id number] Number: Repository [address]Yth: 330 [id number] (HP) Date:2018-07-10 07/10/2018 Secondary NAKUL A [place] Insurance:AARPPolicy RAFFDOB: Community Number: [id number] Hospital [id number] Repository Date:7070-71-38QB [address], [place] [address]BY: 07/10/2018 Tertiary NOT GIVENUNK [place] Insurance:SELF PAY [facility] Number: Effective Repository Date:2018-07-10 07/10/2018 NAKUL A Primary NAKUL A [place] [id number] Insurance:MEDICARE RAFFDOB: Community FABIOLA PART A [facility] [id number] Number: Repository [address]Cdk: 330 [id number] (HP) Date:2018-07-10 07/10/2018 Secondary NAKUL A [place] Insurance:AARPPolicy RAFFDOB: Community Number: [id number] Hospital [id number] Repository Date:6557-40-31AI [facility] [address], [place] [address]KR: 07/10/2018 Tertiary NOT GIVENUNK [place] Insurance:SELF PAY [facility] Number: Effective Repository Date:2018-07-10 07/10/2018 NAKUL A Primary NAKUL A [place] [id number] Insurance:MEDICARE RAFFDOB: Community FABIOLA PART A [facility] [id number] [place] Number: Repository [address]Daa: 330 [id number] () Date:2018-07-10 07/10/2018 Secondary NAKUL A [place] Insurance:AARPPolicy RAFFDOB: Community Number: [id number] Hospital [id number] Repository Date:8151-27-82QI [facility] [address], [place] [address]PA: 07/10/2018 Tertiary NOT GIVENUNK [place] Insurance:SELF PAY [facility] Number: Effective Repository Date:2018-07-10 07/10/2018 NAKUL A Primary NAKUL A [place] [id number] Insurance:MEDICARE RAFFDOB: Community FABIOLA PART A [facility] [id number] [place] Number: Repository [address]Shd: [phone] [id number] (HP) Date:2018-07-10 07/10/2018 Secondary NAKUL A [place] Insurance:AARPPolicy RAFFDOB: Community Number: [id number] Hospital [id number] Repository Date:0875-21-59CP [facility] [address], [place] [address]YF: 07/10/2018 Tertiary NOT GIVENUNK [place] Insurance:SELF PAY [facility] Number: Effective Repository Date:2018-07-10 07/10/2018 NAKUL A Primary NAKUL A [place] [id number] Insurance:MEDICARE RAFFDOB: Community FABIOLA PART A [facility] [id number] Number: Repository [address]Yir: 330 [id number] () Date:2018-07-10 07/10/2018 Secondary NAKUL A [place] Insurance:AARPPolicy RAFFDOB: Community Number: [id number] Hospital [id number] Repository Date:3671-98-43CP [address], [place] [address]HV: 07/10/2018 Tertiary NOT GIVENUNK [place] Insurance:SELF PAY [facility] Number: Effective Repository Date:2018-07-10 07/06/2018 NAKUL A Primary NAKUL A [place] [id number] Insurance:MEDICARE RAFFDOB: Community FABIOLA PART A [facility] [id number] Number: Repository [address]Map: 330 [id number] (HP) Date:2018-07-05 07/06/2018 Secondary NAKUL A [place] Insurance:AARPPolicy RAFFDOB: Community Number: [id number] Hospital [id number] Repository Date:1267-66-42HW [address], [place] [address]IV: 07/06/2018 Tertiary NOT GIVENUNK [place] Insurance:SELF PAY [facility] Number: Effective Repository Date:2018-07-05 07/05/2018 NAKUL A Primary NAKUL A [place] [id number] Insurance:MEDICARE RAFFDOB: Community FABIOLA PART A [facility] [id number] Number: Repository [address]Vvy: 330 [id number] () Date:2018-07-05 07/05/2018 Secondary NAKUL A [place] Insurance:AARPPolicy RAFFDOB: Community Number: [id number] Hospital [id number] Repository Date:8538-87-36SN [address]WVV[place], [place] [address]YU: 07/05/2018 Tertiary NOT GIVENUNK [place] Insurance:SELF PAY [facility] Number: Effective Repository Date:2018-07-05 07/05/2018 NAKUL A Primary NAKUL A [place] [id number] Insurance:MEDICARE RAFFDOB: Community FABIOLA PART A [facility] [id number], [place] Number: Repository [address]Ans: 330 [id number] () Date:2018-07-05 07/05/2018 Secondary NAKUL A [place] Insurance:AARPPolicy RAFFDOB: Community Number: [id number] Hospital [id number] Repository Date:5913-35-72[address], [place] [address]MW: 07/05/2018 Tertiary NOT GIVENUNK [place] Insurance:SELF PAY [facility] Number: Effective Repository Date:2018-07-05 06/30/2018 NAKUL A Primary NAKUL A [place] [id number] Insurance:MEDICARE RAFFDOB: Community FABIOLA PART A [facility] [id number], [place] Number: Repository [id number]: 330 [id number] (HP) Date:2018-06-30 06/30/2018 Secondary NAKUL A Juliana Insurance:AARPPolicy RAFFDOB: Community Number: [id number] [facility] [id number] Repository Date:8979-24-63QM [facility] 993724[place], [place] [address]WC: 06/30/2018 Tertiary NOT GIVENUNK [place] Insurance:SELF PAY [facility] Number: Effective Repository Date:2018-06-30 06/30/2018 NAKUL A Primary NAKUL A Juliana [id number] Insurance:MEDICARE RAFFDOB: Community FABIOLA PART A [facility] [id number] Number[place] Repository [address]Erl: 330 [id number] (HP) Date:2018-06-30 06/30/2018 Secondary NAKUL A Juliana Insurance:AARPPolicy RAFFDOB: [facility] Number: [id number] Hospital [id number] Repository Date:9810-76-06JM [facility] 703953QPUOFMB, [place] [address]IA: 06/30/2018 Tertiary NOT GIVENUNK [place] Insurance:SELF PAY [facility] Number: Effective Repository Date:2018-06-30 06/30/2018 NAKUL A Primary NAKUL A Juliana [id number] Insurance:MEDICARE RAFFDOB: Community FABIOLA PART A [facility] [id number] Number: Repository [address]Jgc: 330 [id number] () Date:2018-06-30 06/30/2018 Secondary NAKUL A [place] Insurance:AARPPolicy RAFFDOB: Community Number: [id number] Hospital [id number] Repository Date:6950-90-97GF [facility] 110318BMABYTY, [place] [address]NS: 06/30/2018 Tertiary NOT GIVENUNK [place] Insurance:SELF PAY [facility] Number: Effective Repository Date:2018-06-30 06/25/2018 NAKUL A Primary NAKUL A Jul[place] [id number] Insurance:MEDICARE RAFFDOB: Community FABIOLA PART A [facility] [id number] Number[place] Repository [address]Tvj: 330 [id number] (HP) Date:2018-06-25 06/25/2018 Secondary NAKUL A [place] Insurance:AARPPolicy RAFFDOB: Community Number: [id number] Hospital [id number] Repository Date:2385-82-44IG [facility] 131044UBUVOWV, [place] [address]ZK: 06/25/2018 Tertiary NOT GIVENUNK [place] Insurance:SELF PAY [facility] Number: Effective Repository Date:2018-06-25 06/16/2018 NAKUL A Primary NAKUL A [place] [id number] Insurance:MEDICARE RAFFDOB: Community FABIOLA PART A [facility] [id number] Number: Repository [address]Nsf: 330 [id number] () Date:2018-06-16 06/16/2018 Secondary NAKUL A [place] Insurance:AARPPolicy RAFFDOB: Community Number: [id number] [facility] [id number] Repository Date:2384-18-01NH [facility] 920327XKKUNYO, [place] [address]ZJ: 06/16/2018 Tertiary NOT GIVENUNK [place] Insurance:SELF PAY [facility] Number: Effective Repository Date:2018-06-16 06/16/2018 NAKUL A Primary NAKUL A [place] [id number] Insurance:MEDICARE RAFFDOB: Community FABIOLA PART A [facility] [id number] Number: Repository [address]Gwt: 330 [id number] (HP) Date:2018-06-10 06/16/2018 Secondary NAKUL A [place] Insurance:AARPPolicy RAFFDOB: Community Number: [id number] Hospital [id number] Repository Date:8251-04-15LR [facility] 534213FJPDJAG, [place] [address]YK: 06/16/2018 Tertiary NOT GIVENUNK [place] Insurance:SELF PAY Community [facility] Number: Effective Repository Date:2018-06-16 05/30/2018 NAKUL A Primary NAKUL A [place] [id number] Insurance:MEDICARE RAFFDOB: Community FABIOLA PART A [facility] [id number], [place] Number: Repository [address]Iqx: 330 [id number] (HP) Date:2018-04-29 05/30/2018 Secondary NAKUL A [place] Insurance:AARPPolicy RAFFDOB: Community Number: [id number] Hospital [id number] Repository Date:6088-06-13MM [facility] 926772IYS[place]OA, [place] [address]ET: 05/30/2018 Tertiary NOT GIVENUNK [place] Insurance:SELF PAY [facility] Number: Effective Repository Date:2018-05-30 05/10/2018 NAKUL A Primary NAKUL A Juliana [id number] Insurance:MEDICARE RAFFDOB: [facility] FABIOLA PART A [facility] [id number] [place] Number[place] Repository [address]Loi: 330 [id number] (HP) Date:2018-05-10 05/10/2018 Secondary NAKUL A [place] Insurance:AARPPolicy RAFFDOB: Community Number: [id number] Hospital [id number] Repository Date:5988-96-56LI [facility] 778491ADZQAQF, [place] [address]KE: 05/10/2018 Tertiary NOT GIVENUNK [place] Insurance:SELF PAY [facility] Number: Effective Repository Date:2018-05-10 05/08/2018 NAKUL A Primary NAKUL A [place] [id number] Insurance:MEDICARE RAFFDOB: Community FABIOLA PART A [facility] [id number] Number: Repository [address]Abu: 330 [id number] (HP) Date:2017-10-15 05/08/2018 Secondary NAKUL A [place] Insurance:AARPPolicy RAFFDOB: Community Number: [id number] Hospital [id number] Repository Date:8268-02-90AW [address]WIREFL, [place] [address]PI: 05/08/2018 Tertiary NOT GIVENUNK [place] Insurance:SELF PAY [facility] Number: Effective Repository Date:2018-04-24 05/08/2018 NAKUL A Primary NAKUL A Jul[place] [id number] Insurance:MEDICARE RAFFDOB: Community FABIOLA PART A [facility] [id number] Number: Repository [address]Elm: (650) [id number] () Date:2017-10-15 05/08/2018 Secondary NAKUL A Jul[place] Insurance:AARPPolicy RAFFDOB: Community Number: [id number] Hospital [id number] Repository Date:2874-62-97RA [address]BYVPMEN, [place] [address]DL: 05/08/2018 Tertiary NOT GIVENUNK [place] Insurance:SELF PAY [facility] Number: Effective Repository Date:2018-05-08 05/02/2018 NAKUL A Primary NAKUL A [place] [id number] Insurance:MEDICARE RAFFDOB: Community FABIOLA PART A [facility] [id number] Number: Repository [address]Zbo: 330 [id number] () Date:2018-04-29 05/02/2018 Secondary NAKUL A [place] Insurance:AARPPolicy RAFFDOB: Community Number: [id number] Hospital [id number] Repository Date:7954-50-53VQ [address]PTLBPZO, [place] [address]NL: 05/02/2018 Tertiary NOT GIVENUNK [place] Insurance:SELF PAY [facility] Number: Effective Repository Date:2018-04-29 05/02/2018 NAKUL A Primary NAKUL A [place] [id number] Insurance:MEDICARE RAFFDOB: Community FABOILA PART A [facility] [id number], [place] Number: Repository [address]Rvk: 330 [id number] (HP) Date:2018-04-29 05/02/2018 Secondary NAKUL A [place] Insurance:AARPPolicy RAFFDOB: Community Number: [id number] Hospital [id number] Repository Date:0096-94-85XZ [address]EPKSMJD, [place] [address]QV: 05/02/2018 Tertiary NOT GIVENUNK [place] Insurance:SELF PAY Community [facility] Number: Effective Repository Date:2018-05-02 04/29/2018 NAKUL A Primary NAKUL A [place] [id number] Insurance:MEDICARE RAFFDOB: Community FABIOLA PART A [facility] [id number] [place] Number: Repository [address]Zxp: 330 [id number] (HP) Date:2018-01-09 04/29/2018 Secondary NAKUL A Jul[place] Insurance:AARPPolicy RAFFDOB: Community Number: [id number] Hospital [id number] Repository Date:7895-76-61PT [address]FUZCXBY, [place] [address]YK: 04/29/2018 Tertiary NOT GIVENUNK [place] Insurance:SELF PAY [facility] Number: Effective Repository Date:2018-04-29 04/28/2018 NAKUL A Primary NAKUL A Juliana [id number] Insurance:MEDICARE RAFFDOB: Community FABIOLA PART A [facility] [id number] [place] Number: Repository [address]Koe: 330 [id number] (HP) Date:2017-10-15 04/28/2018 Secondary NAKUL A [place] Insurance:AARPPolicy RAFFDOB: Community Number: [id number] Hospital [id number] Repository Date:4998-60-03FZ [address]YLVKMYS, [place] [address]DH: 04/28/2018 Tertiary NOT GIVENUNK [place] Insurance:SELF PAY [facility] Number: Effective Repository Date:2017-10-15 04/28/2018 NAKUL A Primary NAKUL A [place] [id number] Insurance:MEDICARE RAFFDOB: Community FABIOLA PART A olic [id number], [place] Number: Repository [address]Lze: 330 [id number] (HP) Date:2017-10-15 04/28/2018 Secondary NAKUL A [place] Insurance:AARPPolicy RAFFDOB: Community Number: [id number] Hospital [id number] Repository Date:0266-52-31KC [address]EJODQJW, [place] [address]GF: 04/28/2018 Tertiary NOT GIVENUNK [place] Insurance:SELF PA[place] [facility] Number: Effective Repository Date:2018-04-28 04/15/2018 NAKUL A Primary NAKUL A Jul[place] [id number] Insurance:MEDICARE RAFFDOB: Community FABIOLA PART A [facility] [id number], [place] Number: Repository [address]Oks: 330 [id number] () Date:2018-04-14 04/15/2018 Secondary NAKUL A [place] Insurance:AARPPolicy RAFFDOB: Community Number: [id number] Hospital [id number] Repository Date:5026-35-23AB [address]KLVPGTL, [place] [address]SP: 04/15/2018 Tertiary NOT GIVENUNK [place] Insurance:SELF PA[place] [facility] Number: Effective Repository Date:2018-04-15 04/13/2018 NAKUL A Primary NAKUL A [place] [id number] Insurance:MEDICARE RAFFDOB: Community FABIOLA PART A [facility] [id number] [place] Number[place] Repository [address]Oqs: 330 [id number] (HP) Date:2018-04-13 04/13/2018 Secondary NAKUL A [place] Insurance:AARPPolicy RAFFDOB: Community Number: [id number] Hospital [id number] Repository Date:7932-26-55PL [address]APOTJFD, [place] [address]HD: 04/13/2018 Tertiary NOT GIVENUNK [place] Insurance:SELF PAY Community [facility] Number: Effective Repository Date:2018-04-13 04/12/2018 NAKUL A Primary NAKUL A [place] [id number] Insurance:MEDICARE RAFFDOB: Community FABIOLA PART A [facility] [id number] Number: Repository [address]Erz: (196) [id number] [phone] () Date:2018-04-12 04/12/2018 Secondary NAKUL A [place] Insurance:AARPPolicy RAFFDOB: Community Number: [id number] Hospital [id number] Repository Date:3520-58-06AC [address]AHQKRBQ, [place] [address]SF: 04/12/2018 Tertiary NOT GIVENUNK [place] Insurance:SELF PAY Community [facility] Number: Effective Repository Date:2018-04-12 01/09/2018 NAKUL A Primary NAKUL A Jul[place] [id number] Insurance:MEDICARE RAFFDOB: Community FABIOLA PART A [facility] [id number], [place] Number: Repository [address]Oiq: 330 [id number] [phone] () Date:2017-10-10 01/09/2018 Secondary NAKUL A [place] Insurance:AARPPolicy RAFFDOB: Community Number: [id number] Hospital [id number] Repository Date:5120-88-53VN [address]FPYQPNG, [place] [address]LB: 01/09/2018 Tertiary NOT GIVENUNK [place] Insurance:SELF PAY Community [facility] Number: Effective Repository Date:2018-01-09 12/13/2017 NAKUL A Primary NAKUL A [place] [id number] Insurance:MEDICARE RAFFDOB: Community FABIOLA PART A [facility] [id number], [place] Number: Repository [address]Jdh: 330 [id number] [phone] (HP) Date:2017-12-13 12/13/2017 Secondary NAKUL A [place] Insurance:AARPPolicy RAFFDOB: Community Number: [id number] Hospital [id number] Repository Date:4358-99-10UB [facility] 393341KBAGDXH, [place] [address]SC: 12/13/2017 Tertiary NOT GIVENUNK [place] Insurance:SELF PAY [facility] Number: Effective Repository Date:2017-12-13 12/04/2017 NAKUL A Primary NAKUL A [place] [id number] Insurance:MEDICARE RAFFDOB: Community FABIOLA PART A [facility] [id number] [place] Number: Repository [address]Vnh: 330 [id number] [phone] (HP) Date:2017-12-04 12/04/2017 Secondary NAKUL A [place] Insurance:AARPPolicy RAFFDOB: Community Number: [id number] Hospital [id number] Repository Date:8304-09-68PV [address]AYKFPQF, [place] [address]MY: 12/04/2017 Tertiary NOT GIVENUNK [place] Insurance:SELF PA[place] [facility] Number: Effective Repository Date:2017-12-04 12/04/2017 NAKUL A Primary NAKUL A [place] [id number] Insurance:MEDICARE RAFFDOB: Community FABIOLA PART A [facility] [id number] Number: Repository [address]Dtl: 330 [id number] [phone] () Date:2017-12-04 12/04/2017 Secondary NAKUL A [place] Insurance:AARPPolicy RAFFDOB: Community Number: [id number] Hospital [id number] Repository Date:4844-24-77HV [address]LQRIBTX, [place] [address]PC: 12/04/2017 Tertiary NOT GIVENUNK [place] Insurance:SELF PA[place] [facility] Number: Effective Repository Date:2017-12-04 10/15/2017 NAKUL A Primary NAKUL A [place] [id number] Insurance:MEDICARE RAFFDOB: Community FAIBOLA PART A [facility] [id number], [place] Number: Repository [address]Bor: 330 [id number] [phone] (HP) Date:2017-08-19 10/15/2017 Secondary NAKUL A [place] Insurance:AARPPolicy RAFFDOB: Community Number: [id number] Hospital [id number] Repository Date:0325-52-04HS [facility] 793064RUMVGSM, [place] [address]ZK: 10/15/2017 Tertiary NOT GIVENUNK [place] Insurance:SELF PAY [facility] Number: Effective Repository Date:2017-08-19 10/10/2017 NAKUL A Primary NAKUL A [place] [id number] Insurance:MEDICARE RAFFDOB: Community FABIOLA PART A [facility] [id number], [place] Number: Repository [address]Tfm: 330 [id number] [phone] (HP) Date:2017-10-10 10/10/2017 Secondary NAKUL A [place] Insurance:AARPPolicy RAFFDOB: Community Number: [id number] [facility] [id number] Repository Date:5922-67-38YN [facility] 932972WPYCELR, [place] [address]DR: 10/10/2017 Tertiary NOT GIVENUNK [place] Insurance:SELF PAY [facility] Number: Effective Repository Date:2017-10-10 10/10/2017 NAKUL A Primary NAKUL A [place] [id number] Insurance:MEDICARE RAFFDOB: Community FABIOLA PART A [facility] [id number], [place] Number: Repository [address]Ieb: 330 [id number] [phone] (HP) Date:2017-08-10 10/10/2017 Secondary NAKUL A [place] Insurance:AARPPolicy RAFFDOB: Community Number: [id number] Hospital [id number] Repository Date:3280-97-98GP [address]NTZVXED, [place] [address]FP: 10/10/2017 Tertiary NOT GIVENUNK [place] Insurance:SELF PAY [facility] Number: Effective Repository Date:2017-08-10 10/10/2017 NAKUL A Primary NAKUL A [place] [id number] Insurance:MEDICARE RAFFDOB: Community FABIOLA PART A [facility] [id number], [place] Number: Repository [id number]: (170) [id number] [phone] () Date:2017-10-10 10/10/2017 Secondary NAKUL A [place] Insurance:AARPPolicy RAFFDOB: Community Number: [id number] Hospital [id number] Repository Date:8153-18-23VB [address], [place] [address]RZ: 10/10/2017 Tertiary NOT GIVENUNK [place] Insurance:SELF PAY [facility] Number: Effective Repository Date:2017-10-10
== END ==
PROVIDERS: Family Provider Internal Medicine; PCP Internal Medicine; Referring Provider Nurse Practitioner Family; Visit Provider Nurse Practitioner Family
DX: I10 Essential (primary) hypertension (principal); E78.5 Hyperlipidemia, unspecified; R30.0 Dysuria; E66.9 Obesity, unspecified
CPT/HCPCS: 36415; 80048; 80061; 81001

== ENCOUNTER → 2018-11-05 08:52 | Outpatient (CLI) | payer MEDICARE, OTHER, SELFPAY ==
[2018-10-28 08:39] VITALS: BMI 27.8
--- NOTE | 2018-11-05 08:53 | ART_ITS ---
Reason For Study: Diinished Pulses, Intermittent Claudication Procedure A bilateral lower extremity continuous wave Doppler with analog waveform analysis and ankle brachial indexes. Left Segmental Pressures Left brachial= 136mmHg. Left posterior tibial artery = 145mmHg. Left dorsalis pedis artery = 139mmHg. Right Segmental Pressures Right brachial= 131mmHg. Right posterior tibial artery = 118mmHg. Right dorsalis pedis artery = 123mmHg. Indices The right ankle brachial index by the posterior tibial artery is 0.87. The right ankle brachial index by the dorsalis pedis is 0.90. The left ankle brachial index by the posterior tibial artery is 1.07. The left ankle brachial index by the dorsalis pedis is 1.02. Interpretation Summary Biphasic and triphasic Doppler waveforms are noted at ankle level on the right. Triphasic Doppler waveforms are noted at ankle level on the left. Pulse-volume waveform amplitudes appear satisfactory at ankle and digital level bilaterally. The resting ankle-brachial index is low normal on the right, and normal on the left. There is no evidence of significant arterial occlusive disease. Ordering Physician: Chris Scanlon Referring Physician: Chris Scanlon Performed By: Vanna Quintana RDCS/RVT
== END ==
PROVIDERS: Family Provider Internal Medicine; PCP Internal Medicine; Referring Provider Nurse Practitioner Family; Visit Provider Nurse Practitioner Family
DX: I70.213 Atherosclerosis of native arteries of extremities with intermittent claudication, bilateral legs (principal)
CPT/HCPCS: 93922

== ENCOUNTER → 2018-12-18 09:38 | Outpatient (CLI) | payer MEDICARE, OTHER, SELFPAY ==
[2018-12-09 08:47] VITALS: BMI 27.8
--- NOTE | 2018-12-18 09:40 | VDLE_ITS ---
Reason For Study: LEG SWELLING RIGHT LEFT CFV is compressible, spontaneous, phasic, GSV is normal. competent and demonstrates normal CFV is compressible, spontaneous, phasic, augmentation. competent, and demonstrates normal Procedure augmentation. Exam performed in department. Acute deep vein thrombosis is noted in the A preliminary report was called and/or faxed left femoral vein. to Dr. Moore. Acute deep vein thrombosis is noted in the left popliteal vein. Acute deep vein thrombosis is noted in the left peroneal vein. Acute deep vein thrombosis is noted in the left posterior tibial vein. Acute deep vein thrombosis is noted in the left soleus vein. Interpretation Summary Acute deep vein thrombosis is noted in the left femoral vein. Acute deep vein thrombosis is noted in the left popliteal vein. Acute deep vein thrombosis is noted in the left tibio-peroneal trunk. Acute deep vein thrombosis is noted in the left peroneal vein. Acute deep vein thrombosis is noted in the left posterior tibial vein. Acute deep vein thrombosis is noted in the left soleus vein. The left common femoral vein is patent, compressible, and competent. The left greater saphenous vein appears patent and compressible segmentally. Ordering Physician: Tonny Moore Referring Physician: Wade Padilla Performed By: Nora Cole RVT
== END ==
PROVIDERS: Family Provider Internal Medicine; PCP Internal Medicine; Referring Provider Anesthesiology Pain Medicine; Visit Provider Anesthesiology Pain Medicine
DX: M79.605 Pain in left leg (principal); M79.89 Other specified soft tissue disorders
CPT/HCPCS: 93971

== ENCOUNTER 2018-12-19 12:43 | Emergency (ER) | payer MEDICARE, OTHER, SELFPAY ==
[2018-12-18 12:54] VITALS: BMI 27.8
[2018-12-19 12:44] VITALS: BP 137/65; PULSE 72; RESP 14; TEMP 36.8; O2SAT 97; BMI 26.4
--- NOTE | 2018-12-19 13:03 | ED.VIS.GEN ---
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 He was diagnosed with a DVT and placed on Lovenox and Coumadin. The Lovenox and Coumadin was started today. Apparently last evening he had increased discoloration and swelling. He has no other associated symptoms. Prior similar symptoms: Yes Recent Illness/Hospitalization: Yes - Past Medical History (1) Deep vein thrombosis (DVT) Status: Acute (2) Sacroiliitis Status: Acute (3) Urinary retention Status: Acute (4) BPH (benign prostatic hyperplasia) Status: Chronic (5) COPD (chronic obstructive pulmonary disease) Status: Chronic (6) Carotid artery stenosis Status: Chronic (7) Chronic bronchitis Status: Chronic (8) Hyperlipidemia Status: Chronic (9) Hypertension Status: Chronic (10) Intermittent claudication Status: Chronic (11) LIZA (obstructive sleep apnea) Status: Chronic (12) Obesity Status: Chronic (13) Peripheral neuropathy Status: Chronic Past Medical History - Allergies and Home Meds Allergies/Adverse Reactions: Allergies Iodinated Contrast- Oral and IV Dye [Iodinated Contrast Media - IV Dye] Allergy (Verified 07/13/18 11:41) Unknown per patient unsure of reaction had facet spinal block about 15 years ago and per patient his surgeon said to torey iv contrast as allergy. patient was premedicated with 13-hour prep with prednisone before CT of chest with IV contrast on 07/13/2018, no reaction noted after CT. Primary Care Physician: Wade Padilla MD [Primary Care Provider] - Prior records reviewed: Yes Surgical History: herniorrhaphy, - - Rafael, please see above Lives: Alone Smoking Status: Heavy Smoker (>10/day) Alcohol: None Review of Systems General: Denies: Chills, Fever, Malaise, Subjective, Sweats, Weight loss Cardiovascular: Denies: Chest pain, Palpitations, Heart racing, -, - Respiratory: Denies: Dyspnea - Patient reports baseline dyspnea. His dyspnea is no worse., Cough, Dyspnea on exertion, Orthopnea, Paroxysmal nocturnal dyspnea Gastrointestinal: Denies: Abdominal pain, Nausea, Vomiting, Diarrhea, Melena, Hematochezia Hematologic: Denies: Easy bruising, Easy bleeding Allergy: Denies: Uticaria, Swelling of the mouth, Swelling of the tongue Physical Exam Vital Signs/Narrative: Vital Signs Temp Pulse Resp BP Pulse Ox 12/19/18 12:44 98.2 F 72 14 137/65 H 97 General: Well nourished, Well developed, No Acute Distress Head: Normocephalic, Atraumatic Eyes: Perrl, EOMI. Negative for: Pale conjunctiva, Scleral icterus ENT: Moist mucous membranes, No rhinorrhea Neck: Supple, Nontender, No lymphadenopathy, No JVD, - Cardiovascular: Regular rate, Regular rhythm, No murmurs, Normal S1, Normal S2 Respiratory: No distress, CTA bilaterally, Chest nontender Extremities: Tenderness, Edema, - - Phlegmasia cerulea dolens Skin: Normal color, No rash, Rash Neurological: Alert, Oriented x3, Cranial nerves II-XII grossly intact, Normal Strength, Normal Sensation Psychological: Normal affect, Normal Mood Diagnostic/Tx/Re-eval - Medical Decision Making Since patient was just started on Lovenox and Coumadin on surprised by his symptoms. Nothing further needs to be done since he has been diagnosed with a DVT and has findings consistent with phlegmasia cerulea dolens. He was instructed to return if he develops acute shortness of breath or chest pain. ED Disposition - Plan for ED Patient: Disposition: Home or Assisted Living Diagnosis: Phlegmasia cerulea dolens of left lower extremity Instructions: ED DVT Referrals: Wade Padilla MD [Primary Care Provider] - Keep Marquez appointment
== END 2018-12-19 13:45 | disposition home or self-care (01) ==
PROVIDERS: Emergency Provider Emergency Medicine; Family Provider Internal Medicine; PCP Internal Medicine
DX: I80.202 Phlebitis and thrombophlebitis of unspecified deep vessels of left lower extremity (principal); J42 Unspecified chronic bronchitis; I65.29 Occlusion and stenosis of unspecified carotid artery; I10 Essential (primary) hypertension; E78.5 Hyperlipidemia, unspecified; I73.9 Peripheral vascular disease, unspecified; G62.9 Polyneuropathy, unspecified; M46.1 Sacroiliitis, not elsewhere classified; N40.1 Benign prostatic hyperplasia with lower urinary tract symptoms; R33.8 Other retention of urine; G47.33 Obstructive sleep apnea (adult) (pediatric); E66.9 Obesity, unspecified; F17.200 Nicotine dependence, unspecified, uncomplicated
CPT/HCPCS: 99283

== ENCOUNTER → 2018-12-22 09:18 | Outpatient (CLI) | payer MEDICARE, OTHER, SELFPAY ==
[2018-12-19 12:44] VITALS: BMI 26.4
[2018-12-22 12:28] LABS: Absolute Lymphocyte Count 1.72 X10^3/ul (0.83-4.51); Absolute Neutrophil Count 3.6 X10^3/uL (2.0-7.7); Basophil# 0.02 X10^3/uL; Basophil% 0.3 % (0-1); Eosinophil# 0.21 X10^3/uL; Eosinophils% 3.4 % (0-5); Hemoglobin 15.5 g/dl (13.0-16.5); Lymphocyte # 1.72 X10^3/ul (4.0); Lymphocyte % 27.7 % (19-41); Mean Corp Hgb Conc 35.2 g/gl (32-36); Mean Corpuscular Hgb 34.4 pg (27.0-32.0); Mean Corpuscular Volume 97.6 fL (80-94); Mean Platelet Vol. 10.3 fl (6.2-12.0); Monocyte% 11.3 % (0-10); Neutrophil # 3.56 X10^3/uL (2.7-7.7); Neutrophil % 57.1 % (47-70); Platelet Count 159 K/mm3 (150-450); Red Blood Count 4.51 M/mm3 (4.6-6.2); White Blood Count 6.2 K/mm3 (4.4-11.0)
[2018-12-22 12:39] LABS: International Normalized Ratio 1.1; Prothrombin Time (Protime)PT. 14.2 SECONDS (11.7-14.9)
[2018-12-22 12:40] LABS: POSITIVE COUNT NO; POSITIVE DIFFERENTIAL NO; POSITIVE MORPHOLOGY NO
== END ==
PROVIDERS: Family Provider Internal Medicine; PCP Internal Medicine; Visit Provider Internal Medicine
DX: I82.409 Acute embolism and thrombosis of unspecified deep veins of unspecified lower extremity (principal)
CPT/HCPCS: 36415; 85025; 85610

== ENCOUNTER → 2018-12-26 09:09 | Outpatient (CLI) | payer MEDICARE, OTHER, SELFPAY ==
[2018-12-23 11:31] VITALS: BMI 26.4
[2018-12-26 13:01] LABS: International Normalized Ratio 1.4; Prothrombin Time (Protime)PT. 17.1 SECONDS (11.7-14.9)
== END ==
LOC: EPLAB 09:10 → BIMLAB 12-29 08:48
PROVIDERS: Family Provider Internal Medicine; PCP Internal Medicine; Visit Provider Internal Medicine
DX: I82.409 Acute embolism and thrombosis of unspecified deep veins of unspecified lower extremity (principal)
CPT/HCPCS: 36415; 85610

== ENCOUNTER 2019-01-05 09:21 | Outpatient (RCR) | payer MEDICARE, OTHER, SELFPAY ==
[2018-12-23 11:31] VITALS: BMI 26.4
[2018-12-29 12:30] LABS: International Normalized Ratio 2.7; Prothrombin Time (Protime)PT. 28.7 SECONDS (11.7-14.9)
[2019-01-05 12:34] LABS: International Normalized Ratio 3.3; Prothrombin Time (Protime)PT. 33.9 SECONDS (11.7-14.9)
== END 2019-01-06 23:59 ==
LOC: BIMLAB 09:21
PROVIDERS: Family Provider Internal Medicine; PCP Internal Medicine; Visit Provider Internal Medicine
DX: I82.409 Acute embolism and thrombosis of unspecified deep veins of unspecified lower extremity (principal); Z79.01 Long term (current) use of 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s
CPT/HCPCS: 36415; 85610

== ENCOUNTER → 2019-01-12 11:13 | Outpatient (CLI) | payer MEDICARE, OTHER, SELFPAY ==
[2019-01-12 10:12] VITALS: BMI 26.4
--- NOTE | 2019-01-12 11:19 | EKG12_ITS ---
Test Reason : ESSENTIAL HTN Blood Pressure : / mmHG Vent. Rate : 058 BPM Atrial Rate : 058 BPM P-R Int : 140 ms QRS Dur : 090 ms QT Int : 432 ms P-R-T Axes : 067 078 053 degrees QTc Int : [address] abnormality, possible digitalis effect Abnormal ECG Confirmed by ISABEL GUNDERSON, BON ([id number]), photography editor ISIDRA CARLOS ([id number]) on 01/13/2019 1:34:36 PM Referred By: Wade Padilla Confirmed By:BON HALL MD
== END ==
PROVIDERS: Family Provider Internal Medicine; PCP Internal Medicine; Referring Provider Internal Medicine; Visit Provider Internal Medicine
DX: I10 Essential (primary) hypertension (principal); I82.409 Acute embolism and thrombosis of unspecified deep veins of unspecified lower extremity; N40.0 Benign prostatic hyperplasia without lower urinary tract symptoms; Z79.01 Long term (current) use of 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s
CPT/HCPCS: 36415; 80048; 84153; 85610; 93005; G0103

== ENCOUNTER → 2019-01-26 06:11 | Outpatient (CLI) | payer MEDICARE, OTHER, SELFPAY ==
[2019-01-13 10:01] VITALS: BMI 29.4
--- NOTE | 2019-01-26 10:00 | STRESSREP ---
Stress Test Report Pharmacologic myocardial perfusion stress test. 68-year-old man with a history of chest pain. Stress protocol: Resting EKG demonstrates normal sinus rhythm with a rate of 58 bpm normal intervals are noted resting blood pressures 150/68 mmHg. 0.4 mg of regadenoson was infused per usual protocol followed by rapid intravenous saline flush injection continuous EKG monitoring was performed. The patient maintained sinus rhythm throughout the recording at rest there were no ST or T wave changes noted suggest abnormal flow reserve at peak infusion nonspecific ST-T wave changes were noted. The resting blood pressures 150/68 with a final blood pressure 130/60 mmHg. Myocardial perfusion protocol. 11.9 mCi of technetium 99m sestamibi was injected at rest. 0.4 mg of regadenoson was infused per usual protocol. Peak infusion 34.8 mCi of technetium 99m sestamibi was injected stress images were obtained stress and rest images were reconstructed and compared in the short axis vertical long horizontal long axis. Gated images were also obtained per Perfusion SPECT analysis: Review of the stress images demonstrate a normal cardiac silhouette size. There is mild reduction of perfusion noted in the inferior apical wall on the stress images with mild improvement on the resting images suggesting a mild amount of inferoapical ischemia. No previous infarct is noted. Gated SPECT analysis: The gated ejection fraction is noted to be 64%. Conclusion: Mildly abnormal pharmacologic myocardial perfusion stress test with evidence of inferior apical ischemia. Preserved ejection fraction.
== END ==
PROVIDERS: Family Provider Internal Medicine; PCP Internal Medicine; Referring Provider Internal Medicine; Visit Provider Internal Medicine
DX: R07.9 Chest pain, unspecified (principal)
CPT/HCPCS: 78452; 93017; A9500; A4216; J2785

== ENCOUNTER 2019-02-02 01:27 | Emergency (ER) | payer MEDICARE, OTHER, SELFPAY ==
[2019-01-13 10:01] VITALS: BMI 29.4
[2019-02-02 01:29] VITALS: BP 171/71; PULSE 77; RESP 18; TEMP 36.6; O2SAT 94; BMI 29.9
--- NOTE | 2019-02-02 01:51 | ED.DCSUM_ITS ---
- ER Visit Summary Date of Service: 02/02/19 Chief Complaint: Left lower leg swelling and pain with known DVT History of Present Illness: The patient is a 68 M no history of DVT and swelling in his left lower leg. Patient had back surgery for a disc, left knee surgery and most recently a left foot surgery for hammertoe. He was diagnosed in December with left lower extremity DVT. He has been on Coumadin since that time. He comes in tonight stating that the pain gets worse throughout the day as the swelling increases. At times the swelling is too bad he cannot wear his compression hose. He wants to know what to do to keep the swelling down. Patient is verbally and visually obviously frustrated. Physical Examination: Older male no acute distress. Vital signs are stable and afebrile. H EENT exam unremarkable. Neck nontender. Lungs clear to auscultation bilaterally. Heart regular rhythm no murmur. Abdomen soft nontender normal bowel sounds no peritoneal signs. Patient moving all 4 extremities. He has palpable DP pulses bilaterally. He does have obvious 1+ edema in his left lower extremity compared to the right. He has calf tenderness in the left. He has a prior well-healed post surgery. Left foot is neurovascular intact with normal touch sensation. Cap refill. Left lower leg from the knee to the foot is tender due to the swelling. Neurologically is awake and alert. Left lower extremity there is no signs of compartment syndrome. Test Results: None. Patient understands he does not need emergent ultrasound at this time and is not available this evening. I offered to check his Coumadin level which he deferred. Emergency Department Course and Treatment: Patient is obviously frustrated. I tried to explain to him that there was limited we could do the night in the emergency department. The best thing for swelling was elevation and compression stockings. Treatment Plan: Patient refused [place] home pack for pain. Follow-up with his doctor. Disposition: Discharge Impression: Acute on chronic left lower extremity swelling with known history of DVT This note was generated with [employer] dictation software. It may contain incorrect words, spelling, and punctuation that were not noted in review of the chart prior to signing ED Disposition - Plan for ED Patient: Disposition: Home or Assisted Living Instructions: ED DVT Referrals: Wade Padilla MD [Primary Care Provider] - As soon as possible Additional Instructions: Continuing your current medications. Have your Coumadin level rechecked on Saturday. Elevate your leg as much as possible to decrease swelling. When she gets the swelling down begin using your compression stocking. Limited [place] for pain. Follow-up with primary care physician
--- NOTE | 2019-02-02 02:11 | ED.RN ---
PT REFUSED [facility] SAYING HE WENT BERSERK WITH OXYCODONE. TRIED TO EDUCATE PT ON HYROCODONE VS OXYCODONE. DR. BANUELOS TO BEDSIDE. PT ADVISE TO TAKE TYLENOL. HE REFUSED [facility] HOME PACK. PT STATED HE WOULD TALK WITH HIS PCP IN THE AM.
== END 2019-02-02 02:13 | disposition home or self-care (01) ==
PROVIDERS: Emergency Provider Emergency Medicine; Family Provider Internal Medicine; PCP Internal Medicine
DX: I82.402 Acute embolism and thrombosis of unspecified deep veins of left lower extremity (principal); I82.502 Chronic embolism and thrombosis of unspecified deep veins of left lower extremity; M79.89 Other specified soft tissue disorders; Z72.0 Tobacco use; Z98.890 Other specified postprocedural states; Z79.01 Long term (current) use of 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s
CPT/HCPCS: 99282

== ENCOUNTER 2019-02-03 08:31 | Outpatient (RCR) | payer MEDICARE, OTHER, SELFPAY ==
[2018-12-23 11:31] VITALS: BMI 26.4
[2019-01-12 10:12] VITALS: BMI 26.4
[2019-01-12 12:09] LABS: International Normalized Ratio 1.8; Prothrombin Time (Protime)PT. 20.6 SECONDS (11.7-14.9)
[2019-01-12 12:19] LABS: PSA,Total - Annual Screen 0.34 ng/mL (0.00-4.00)
[2019-01-12 12:32] LABS: Anion Gap 5 (5-15); BUN 13 mg/dL (7-18); BUN/Creat Ratio 11.5 RATIO (10-20); Calcium,Total 9.1 mg/dL (8.5-10.1); Chloride 105 mmol/L (98-107); Creatinine, Serum 1.13 mg/dL (0.70-1.30); EST Glomerular Filtration Rate 69 mL/min (>60); Est Glom Filt Rate - Afr Amer 83 mL/min (>60); Glucose 104 mg/dL (74-106); Potassium 4.5 mmol/L (3.5-5.1); Sodium Level 137 mmol/L (136-145)
[2019-01-19 12:34] LABS: International Normalized Ratio 2.2; Prothrombin Time (Protime)PT. 24.8 SECONDS (11.7-14.9)
[2019-02-03 12:36] LABS: International Normalized Ratio 2.5; Prothrombin Time (Protime)PT. 27.2 SECONDS (11.7-14.9)
== END 2019-02-06 23:59 ==
LOC: BIMLAB 08:31
PROVIDERS: Family Provider Internal Medicine; PCP Internal Medicine; Visit Provider Internal Medicine
DX: I82.409 Acute embolism and thrombosis of unspecified deep veins of unspecified lower extremity (principal); Z79.01 Long term (current) use of 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s
CPT/HCPCS: 36415; 80048; 84153; 85610; G0103

== ENCOUNTER → 2019-02-03 15:40 | Outpatient (CLI) | payer MEDICARE, OTHER, SELFPAY ==
[2019-02-03 13:26] VITALS: BMI 29.7
[2019-02-03 16:32] LABS: Absolute Lymphocyte Count 2.19 X10^3/ul (0.83-4.51); Absolute Neutrophil Count 3.2 X10^3/uL (2.0-7.7); Anion Gap 6 (5-15); BUN 13 mg/dL (7-18); BUN/Creat Ratio 13.6 RATIO (10-20); Basophil# 0.02 X10^3/uL; Basophil% 0.3 % (0-1); Calcium,Total 8.8 mg/dL (8.5-10.1); Chloride 104 mmol/L (98-107); Creatinine, Serum 0.96 mg/dL (0.70-1.30); EST Glomerular Filtration Rate 83 mL/min (>60); Eosinophil# 0.08 X10^3/uL; Eosinophils% 1.3 % (0-5); Est Glom Filt Rate - Afr Amer 101 mL/min (>60); Glucose 87 mg/dL (74-106); Hematocrit 44.7 % (40-54); Hemoglobin 14.9 g/dl (13.0-16.5); Lymphocyte # 2.19 X10^3/ul (4.0); Lymphocyte % 35.8 % (19-41); Mean Corp Hgb Conc 33.3 g/gl (32-36); Mean Corpuscular Hgb 33.6 pg (27.0-32.0); Mean Corpuscular Volume 100.9 fL (80-94); Mean Platelet Vol. 9.5 fl (6.2-12.0); Monocyte# 0.62 X10^3/uL; Monocyte% 10.1 % (0-10); Neutrophil % 52.5 % (47-70); Platelet Count 247 K/mm3 (150-450); Potassium 3.8 mmol/L (3.5-5.1); RBC Distribution Width CV 14.5 % (11.6-14.6); RBC Distribution Width SD 53.6 fl (35.1-43.9); Red Blood Count 4.43 M/mm3 (4.6-6.2); Sodium Level 139 mmol/L (136-145); White Blood Count 6.1 K/mm3 (4.4-11.0)
[2019-02-03 16:33] LABS: POSITIVE COUNT NO; POSITIVE DIFFERENTIAL NO; POSITIVE MORPHOLOGY NO
== END ==
PROVIDERS: Family Provider Internal Medicine; PCP Internal Medicine; Referring Provider Specialist; Visit Provider Specialist
DX: R07.9 Chest pain, unspecified (principal); I82.409 Acute embolism and thrombosis of unspecified deep veins of unspecified lower extremity; Z79.01 Long term (current) use of 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s
CPT/HCPCS: 36415; 80048; 85025; 85610

== ENCOUNTER → 2019-02-16 10:54 | Outpatient (CLI) | payer MEDICARE, OTHER, SELFPAY ==
[2019-02-03 13:26] VITALS: BMI 29.7
[2019-02-09 11:28] VITALS: BMI 29.7
--- NOTE | 2019-02-16 11:07 | ECHOD_ITS ---
Reason For Study: MURMUR Procedure This was a 2D Doppler, Color Flow transthoracic echocardiogram. Exam performed in department. Left Ventricle Normal size and thickness. The estimated ejection fraction is 55 %. Stage 1 diastolic dysfunction. No regional wall motion abnormalities noted. Right Ventricle Normal RV size. Normal systolic function. Atria Normal left atrium. Normal right atrium. No doppler evidence for ASD. Mitral Valve There is moderate mitral annular calcification. There is no mitral valve stenosis. Mild (1+) mitral valve insufficiency. Tricuspid Valve There is no tricuspid stenosis. Unable to estimate RV systolic pressure due to insufficient tricuspid regurgitant envelope. Mild tricuspid valve insufficiency. Aortic Valve Trisinus/trileaflet aortic valve. Moderate diffuse aortic valve thickening. Moderate aortic stenosis. Mild-Moderate (1-2+) aortic valve insufficiency. Pulmonic Valve There is no pulmonic valvular stenosis. No pulmonic valve insufficiency. Great Vessels Normal aortic root. Pericardium/Pleural No pericardial effusion. MMode/2D Measurements & Calculations LVIDd: 5.4 cm IVSd: 0.73 cm LVOT diam: 2.0 cm LVIDs: 3.4 cm LVPWd: 0.93 cm LVOT area: 3.0 cm2 RVDd: 3.4 cm FS: 35.8 % Ao root diam: 3.1 cm LAV(MOD-bp): 58.1 ml LA A4 area: 18.8 cm2 LAV(MOD-bp) Indexed: 27.0 ml/m2 LAV(MOD-sp2): 59.8 ml LAV(MOD-sp4): 53.5 ml LA dimension(2D): 3.9 cm RA A4 area: 14.5 cm2 Time Measurements MV dec time: 0.23 sec Doppler Measurements & Calculations MV E max al: 116.3 cm/sec Lat Peak E' Al: 8.6 cm/sec Med Peak E' Al: 7.7 cm/sec MV A max al: 96.1 cm/sec E/E' lat: 13.6 E/E' med: 15.1 MV E/A: 1.2 Ao V2 max: 309.2 cm/sec AI max al: 383.4 cm/sec LV V1 max: 132.1 cm/sec Ao max P.3 mmHg AI max P.9 mmHg LV V1 max P.0 mmHg Ao V2 mean: 212.7 cm/sec AI dec slope: 251.1 cm/sec2 LV V1 mean P.4 mmHg Ao mean P.4 mmHg AI P1/2t: 447.1 msec LV V1 mean: 86.9 cm/sec Ao V2 VTI: 68.6 cm LV V1 VTI: 29.1 cm ANTONINA(I,D): 1.3 cm2 ANTONINA(V,D): 1.3 cm2 SV(LVOT): 87.5 ml PA V2 max: 110.6 cm/sec TR max al: 216.5 cm/sec TR max P.7 mmHg Interpretation Summary The estimated ejection fraction is 55 %. Stage 1 diastolic dysfunction. Mild (1+) mitral valve insufficiency. Moderate aortic stenosis. Mild-Moderate (1-2+) aortic valve insufficiency. Ordering Physician: Bob Kennedy Referring Physician: HILDA JANG Performed By: Lilli Pham RDCS, RVT
== END ==
PROVIDERS: Family Provider Internal Medicine; PCP Internal Medicine; Referring Provider Specialist; Visit Provider Specialist
DX: R01.1 Cardiac murmur, unspecified (principal)
CPT/HCPCS: 93306

== ENCOUNTER 2019-02-19 07:31 | Day surgery (SDC) | payer MEDICARE, OTHER, SELFPAY ==
[2019-02-03 13:26] VITALS: BMI 29.7
[2019-02-09 11:28] VITALS: BMI 29.7
[2019-02-16 11:39] LABS: International Normalized Ratio 1.6; Prothrombin Time (Protime)PT. 18.8 SECONDS (11.7-14.9)
[2019-02-18 08:50] VITALS: BMI 29.7
[2019-02-19 07:46] LABS: Prothrombin Time Fingerstick 13.2 SEC (11.9-14.4)
--- NOTE | 2019-02-19 10:30 | CL.D_ITS ---
Patient Name: NAKUL BASSETT Study Date: 02/19/2019 Performing: Bob Kennedy MD Ht: 70.86 inches 180 cm : 1950 Wt: 213.85 lbs 97 kg Age: 68 Gender: male BSA: 2.17 PROCEDURE(S) PERFORMED [id number]/COR/LV CLINICAL PROFILE AND INDICATIONS Indications: Suspected CAD Heart Failure: None Stress/Imaging Date: 01/26/19Stress Test with SPECT MPI: Positive Intermediate Risk CAD Presentations: Unstable angina. CONCLUSIONS No significant obstructive CAD Preserved LV systolic function No significant or MR RECOMMENDATIONS Risk factor modification DESCRIPTION OF PROCEDURE The patient arrived to the procedure lab. The risks and benefits of the procedure as well as a full d escription of our services here and current unavailability of surgical backup were fully explained to the patient and/or their significant other prior to the catheterization. The Timeout was completed, verifying the correct patient and procedure. The patient's procedural site was prepped and draped in the usual fashion. Local anesthetic was given subcutaneously to right radial region with Lidocaine 2% . Using a modified Seldinger technique, arterial access was obtained via the right radial artery, a 6 Fr sheath was inserted. Left Coronary Artery selective angiography was performed in multiple views u sing a 5 Fr. JL3.5 catheter. Right Coronary Artery selective angiography was then performed in multip le views using a 5 Fr. JR 4 catheter.The arterial sheath was pulled and a TR Band was applied for hem ostasis w/ 15 ml air CORONARY ANGIOGRAPHY DOMINANCE: Right Dominant LEFT HEART ASSESSMENT Left Ventricular Ejection Fraction: by LV Gram 55 % LEFT MAIN: Mild luminal irregularities LEFT ANTERIOR DESCENDING ARTERY: Mild luminal irregularities CIRCUMFLEX ARTERY: Mild luminal irregularities RIGHT CORONARY ARTERY: Mild luminal irregularities VALVE FINDINGS: No Aortic Valve Stenosis No Mitral Insufficency COMPLICATIONS No Complications PROCEDURE MEDICATIONS Versed 1 mg IV Fentanyl 50 mcg IV Oxygen: 2 L/min via nasal cannula Heparin given IA 02/19/2019 09:52:16 Verapamil 2.5mg, Ntg 100mcgs, 3000 units of Heparin given IA 02/19/2019 09:52:16 SUMMARY OF HEMODYNAMIC DATA Time AIR REST ECG 08:08:59 LV 110/-16, 5 09:57:05 LV 148/-13, 15 09:57:11 LVp 144/2, 25 09:57:38 AO 117/51 (70) 09:57:43 AO 91/51 (65) 09:58:24 Signed By Bob Kennedy MD On 02/19/2019 10:29:22 Bob Kennedy MD
== END 2019-02-19 12:30 | disposition home or self-care (01) ==
LOC: CLSP 07:32
PROVIDERS: Family Provider Internal Medicine; PCP Internal Medicine; Referring Provider Specialist; Visit Provider Specialist
DX: I25.110 Atherosclerotic heart disease of native coronary artery with unstable angina pectoris (principal); J44.9 Chronic obstructive pulmonary disease, unspecified; I10 Essential (primary) hypertension; E78.5 Hyperlipidemia, unspecified; R01.1 Cardiac murmur, unspecified; G62.9 Polyneuropathy, unspecified; G47.33 Obstructive sleep apnea (adult) (pediatric); K21.9 Gastro-esophageal reflux disease without esophagitis; E66.9 Obesity, unspecified; F17.200 Nicotine dependence, unspecified, uncomplicated; Z86.718 Personal history of other venous thrombosis and embolism; Z79.01 Long term (current) use of 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s; Z79.899 Other long term (current) drug therapy
CPT/HCPCS: 36415; 36416; 85610; 93458; 99152; 99153; J7040; Q9967; C1769; C1894

== ENCOUNTER → 2019-02-23 09:59 | Outpatient (CLI) | payer MEDICARE, OTHER, SELFPAY ==
[2019-02-18 08:50] VITALS: BMI 29.7
[2019-02-23 11:03] LABS: International Normalized Ratio 1.5; Prothrombin Time (Protime)PT. 18.3 SECONDS (11.7-14.9)
[2019-02-23 11:29] LABS: ALB/GLOB Ratio 0.8 RATIO (0.9-2.4); AST(SGOT) 35 U/L (15-37); Alanine Aminotransfer ALT/SGPT 46 U/L (16-61); Albumin, Serum 3.3 g/dL (3.2-5.0); Alkaline Phosphatase 66 U/L (45-117); Anion Gap 8 (5-15); BUN 10 mg/dL (7-18); Calcium,Total 8.7 mg/dL (8.5-10.1); Chloride 102 mmol/L (98-107); EST Glomerular Filtration Rate 79 mL/min (>60); Est Glom Filt Rate - Afr Amer 96 mL/min (>60); Globulin 4.1 g/dL (2.2-4.2); Glucose 108 mg/dL (74-106); Potassium 3.7 mmol/L (3.5-5.1); Protein, Total 7.4 g/dL (6.4-8.2); Sodium Level 137 mmol/L (136-145)
== END ==
PROVIDERS: Nurse Practitioner Family; Family Provider Internal Medicine; PCP Internal Medicine; Referring Provider Specialist; Visit Provider Specialist
DX: I82.409 Acute embolism and thrombosis of unspecified deep veins of unspecified lower extremity (principal); E78.5 Hyperlipidemia, unspecified; Z79.01 Long term (current) use of 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s
CPT/HCPCS: 36415; 80053; 85610

== ENCOUNTER 2019-03-04 07:33 | Outpatient (RCR) | payer MEDICARE, OTHER, SELFPAY ==
[2019-02-07 01:11] VITALS: BMI 26.4
[2019-02-18 08:50] VITALS: BMI 29.7
[2019-02-25 09:20] LABS: International Normalized Ratio 1.8
[2019-03-04 08:57] LABS: Anion Gap 9 (5-15); BUN 14 mg/dL (7-18); BUN/Creat Ratio 14.9 RATIO (10-20); Calcium,Total 8.4 mg/dL (8.5-10.1); Chloride 105 mmol/L (98-107); Creatinine, Serum 0.94 mg/dL (0.70-1.30); EST Glomerular Filtration Rate 85 mL/min (>60); Est Glom Filt Rate - Afr Amer 103 mL/min (>60); Glucose 93 mg/dL (74-106); Potassium 3.8 mmol/L (3.5-5.1); Sodium Level 140 mmol/L (136-145)
[2019-03-04 09:29] LABS: International Normalized Ratio 2.3; Prothrombin Time (Protime)PT. 25.3 SECONDS (11.7-14.9)
== END 2019-03-08 12:00 | disposition home or self-care (01) ==
LOC: LAB 07:33
PROVIDERS: Specialist; Family Provider Internal Medicine; PCP Internal Medicine; Visit Provider Internal Medicine
DX: I82.409 Acute embolism and thrombosis of unspecified deep veins of unspecified lower extremity (principal); Z79.01 Long term (current) use of 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s
CPT/HCPCS: 36415; 80048; 85610

== ENCOUNTER 2019-03-18 09:29 | Outpatient (RCR) | payer MEDICARE, OTHER, SELFPAY ==
[2019-02-18 08:50] VITALS: BMI 29.7
[2019-03-11 12:32] LABS: International Normalized Ratio 1.7; Prothrombin Time (Protime)PT. 19.8 SECONDS (11.7-14.9)
[2019-03-18 12:57] LABS: International Normalized Ratio 2.2; Prothrombin Time (Protime)PT. 24.1 SECONDS (11.7-14.9)
== END 2019-04-08 23:59 ==
LOC: BIMLAB 09:29
PROVIDERS: Family Provider Internal Medicine; PCP Internal Medicine; Visit Provider Internal Medicine
DX: I82.409 Acute embolism and thrombosis of unspecified deep veins of unspecified lower extremity (principal); Z79.01 Long term (current) use of 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s
CPT/HCPCS: 36415; 85610

== ENCOUNTER → 2019-04-09 07:01 | Outpatient (CLI) | payer MEDICARE, OTHER, SELFPAY ==
[2019-01-13 10:01] VITALS: BMI 29.4
[2019-03-25 11:01] VITALS: BMI 29.5
--- NOTE | 2019-04-10 08:46 | PFT ---
INTRODUCTION: The patient is a 68-year-old male that presents for pulmonary function studies secondary to a diagnosis of COPD. Respiratory therapy reports good patient effort. Bronchodilators were used during testing. INTERPRETATION: Forced expiration spirometry demonstrates no evidence of a large airways obstructive ventilatory defect. There was no significant response to aerosolized bronchodilators. Spirometry and lung volumes show a nonspecific pattern with spirometry suggestive of restriction and a normal total lung capacity. Spirograms are of good quality and plateau normally. Body plethysmography was performed and reveals lung volumes to be within normal limits. Diffusing capacity by single breath CO was also within normal limits. IMPRESSION: Grossly normal PFTs.
== END ==
PROVIDERS: Family Provider Internal Medicine; PCP Internal Medicine; Referring Provider Internal Medicine Critical Care Medicine; Visit Provider Internal Medicine Critical Care Medicine
DX: J44.9 Chronic obstructive pulmonary disease, unspecified (principal)
CPT/HCPCS: 94060; 94726; 94729

== ENCOUNTER 2019-04-10 09:30 | Outpatient (RCR) | payer MEDICARE, OTHER, SELFPAY ==
[2019-03-25 11:01] VITALS: BMI 29.5
--- NOTE | 2019-04-06 15:30 | HP.OTEVAL_ITS ---
Patient's Visit Information NAKUL BASSETT is a 68 year old M, referred to Occupational Therapy by ESPERANZA CALIX, with a diagnosis of LE lymphedema. Date of Evaluation: 04/06/19 Occupational Therapist: ILMA Renee/Austen, CHT - Subjective Subjective: This 68 year old male was seen for OT eval with dx of acute embolism and thrombosis of deep vein of left LE, and left lower extremity lymphedema. Pt states he had hammer toe sx in November following Pt developed the blood clot at that time in left LE. Pt is not sure how many but at least 5. Pt is currently using a compression sock- 15-20mmHg and has a compression sock 20-30mmHg. pt states he is unable to use the 20-30 mmHg because is causes pain in his leg. Pt states when he wakes up in the am edema is not as bad as in the PM. Pt states he would like to know what more he can do to help decrease the swelling. - Pain left LE 2 Pain Intensity Range: 3 - Lymphedema (Circumferential Measure) Mid-foot: right 25cm left 26cm Ankle: right 28cm left 28cm Lower calf: right 25.5cm left 27cm Largest calf: right 38.5cm left 39cm Below knee: right 35.6 left 36cm - Lower Limb Functional Index Lower Extremity Functional Score: 33 - Goals Demonstrate a 20% reduction in edema by d/c: Yes Demonstrate adequate knowledge skin care/prec by 2nd week: Yes Demonstrate adequate knowledge therapeutic exercises by d/c: Yes Select approp compression garment w/donning/care/wear by d/c: Yes Voice need to replace compression garment every 4-6mo by dc: Yes - Rehabilitation General Assessment: Pt demo with Left LE lymphedema- Pt would benefit from skilled OT services 2-3 visits to ed. pt on lymphedema mtg, skin care and precautions. pt also with acute embolism and deep vein thromobosis of left LE limiting circulation. Due to DVT compression wrap and MLD to LE not advised. Today therapist ed. pt on lymph stim ex to stimulate circulation. Therapist disc ussed tx options for pt- pt open and agree with lymphedema ex, use of compression socks and skin care. Pt was given handout on lymph ex and demo understanding and agreee to POC. Rehabilitation Potential: Fair - Anticipated Interventions Anticipated Interventions: Education re Diagnosis, Manual Lymph Drainage, Education re Life-long lymphedema Management, Education re Skin Care and Precautions, Education re Correct Donning Tech,Care&Wearing Sched Comp Garments, Home Program - Visit Plan Frequency: 1-2x /Week Duration: 2 Weeks TEXT: Thank you for the opportunity to evaluate your patient. For Medicare and Medicare HMO plans, please review the plan of care and approve it. It will need to be FAXED BACK to us at [phone] for Medicare purposes. Please let me know if there are questions or concerns regarding this plan of care. Physician Signature: Date:
--- NOTE | 2019-07-29 18:48 | HP.OT.NRP ---
HP - Discharge Summary - Patient Information NAKUL BASSETT was seen in my office for initial evaluation on 04/06/19. The following Plan of Care was established for this patient: Initial Frequency: 1-2x /Week Initial Duration: 2 Weeks - Anticipated Interventions Anticipated Interventions: Education re Diagnosis, Manual Lymph Drainage, Education re Life-long lymphedema Management, Education re Skin Care and Precautions, Education re Correct Donning Tech,Care&Wearing Sched Comp Garments, Home Program This patient was last seen in our office 04/10/19. Pertinent comments regarding their Occupational therapy will appear below: This pt was seen for 2 OT sessions for dx of lymphedema- pt has not scheduled further apts and is d/c at this time due to time lapse in care. At this point I will be discontinuing this patient from occupational therapy. I would be happy to see this patient again in the future if found appropriate by the physician. Thank you! Hetal Monsalve, OTR/L, CHT
== END 2019-04-10 19:00 | disposition home or self-care (01) ==
LOC: OT 09:30
PROVIDERS: Family Provider Internal Medicine; PCP Internal Medicine
DX: I82.492 Acute embolism and thrombosis of other specified deep vein of left lower extremity (principal); I89.0 Lymphedema, not elsewhere classified
CPT/HCPCS: 97110; 97166; 97530

== ENCOUNTER 2019-04-13 09:50 | Outpatient (RCR) | payer MEDICARE, OTHER, SELFPAY ==
[2019-04-13 09:15] VITALS: BMI 29.5
[2019-04-13 12:33] LABS: International Normalized Ratio 2.7; Prothrombin Time (Protime)PT. 28.7 SECONDS (11.7-14.9)
== END 2019-05-09 23:59 ==
LOC: BIMLAB 09:50
PROVIDERS: PCP Internal Medicine; Visit Provider Internal Medicine
DX: I82.409 Acute embolism and thrombosis of unspecified deep veins of unspecified lower extremity (principal); Z79.01 Long term (current) use of 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s
CPT/HCPCS: 36415; 85610

== ENCOUNTER 2019-06-24 10:30 | Outpatient (RCR) | payer MEDICARE, OTHER, SELFPAY ==
[2019-03-25 11:01] VITALS: BMI 29.5
[2019-04-14 09:03] VITALS: BMI 29.4
[2019-06-24 09:31] VITALS: BMI 29.4
[2019-06-24 12:51] LABS: International Normalized Ratio 2.7; Prothrombin Time (Protime)PT. 29.1 SECONDS (11.7-14.9)
== END 2019-07-09 23:59 ==
LOC: BIMLAB 10:30
PROVIDERS: PCP Internal Medicine; Visit Provider Internal Medicine
DX: Z86.718 Personal history of other venous thrombosis and embolism (principal); Z79.01 Long term (current) use of 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s
CPT/HCPCS: 36415; 85610

== ENCOUNTER 2019-08-24 10:07 | Outpatient (RCR) | payer MEDICARE, OTHER, SELFPAY ==
[2019-08-24 09:27] VITALS: BMI 30.1
[2019-08-24 10:10] LABS: Bacteria 0 SEEN /hpf (None Seen); Mucous, Urine 0 SEEN /hpf (<or=2+); Red Blood Cells-Urine 0 SEEN /hpf (0-5); Squamous Epithelial Cells - UA 0 SEEN /hpf (0-5); White Blood Cells 0 SEEN /hpf (0-5)
[2019-08-24 12:03] LABS: Absolute Lymphocyte Count 1.83 X10^3/uL (0.83-4.51); Absolute Neutrophil Count 3.1 X10^3/uL (2.0-7.7); Basophil# 0.03 X10^3/uL; Basophil% 0.5 % (0-1); Eosinophil# 0.12 X10^3/uL; Eosinophils% 2.1 % (0-5); Hematocrit 46.1 % (40-54); Hemoglobin 15.1 g/dL (13.0-16.5); Lymphocyte # 1.83 X10^3/ul (4.0); Lymphocyte % 31.6 % (19-41); Mean Corp Hgb Conc 32.8 g/dL (32-36); Mean Corpuscular Hgb 33.2 pg (27.0-32.0); Mean Corpuscular Volume 101.3 fL (80-94); Mean Platelet Vol. 9.6 fl (6.2-12.0); Monocyte# 0.69 X10^3/uL; Monocyte% 11.9 % (0-10); NRBC Flagged by Analyzer 0 % (0-5); Neutrophil # 3.11 X10^3/uL (2.7-7.7); Neutrophil % 53.7 % (47-70); Platelet Count 188 K/mm3 (150-450); RBC Distribution Width CV 14.6 % (11.6-14.6); RBC Distribution Width SD 54.4 fl (35.1-43.9); Red Blood Count 4.55 M/mm3 (4.6-6.2); White Blood Count 5.8 K/mm3 (4.4-11.0)
[2019-08-24 12:04] LABS: Color, Urine Yellow (Yellow); Glucose, Dipstick Normal (Normal); Ketone-Dipstick Negative (Negative); Leukocyte Esterase-Dipstick Negative /ul (Negative); Nitrite-Dipstick Negative (Negative); Occult Blood-Urine Negative /ul (Negative); Protein-Dipstick Negative (Negative); Specific Gravity, Urine 1.015 (1.002-1.030); Urine Bilirubin Dipstick Negative (Negative); Urine Clarity Clear (Clear); Urine Urobilinogen Normal (Normal)
[2019-08-24 12:16] LABS: ALB/GLOB Ratio 0.9 RATIO (0.9-2.4); AST(SGOT) 19 U/L (15-37); Alanine Aminotransfer ALT/SGPT 33 U/L (16-61); Albumin, Serum 3.6 g/dL (3.2-5.0); Alkaline Phosphatase 57 U/L (45-117); Anion Gap 1 (5-15); BUN 12 mg/dL (7-18); BUN/Creat Ratio 11.7 RATIO (10-20); Calcium,Total 8.6 mg/dL (8.5-10.1); Chloride 107 mmol/L (98-107); Cholesterol 135 mg/dL (200); Creatinine, Serum 1.03 mg/dL (0.70-1.30); EST Glomerular Filtration Rate 76 mL/min (>60); Est Glom Filt Rate - Afr Amer 92 mL/min (>60); Glucose 97 mg/dL (74-106); High Density Lipoprotein 39 mg/dL; Protein, Total 7.6 g/dL (6.4-8.2); Sodium Level 137 mmol/L (136-145); Triglycerides 105 mg/dL; Very Low Density Lipoprotein 21 mg/dL (5-40)
[2019-08-24 12:16] LABS: International Normalized Ratio 2.4; Prothrombin Time (Protime)PT. 26.3 SECONDS (11.7-14.9)
[2019-08-24 13:19] LABS: PSA,Total- Diagnostic 0.24 ng/mL (0.0-4.0)
== END 2019-09-08 23:59 ==
LOC: BIMLAB 10:07
PROVIDERS: Urology; Family Provider Internal Medicine; PCP Internal Medicine; Visit Provider Internal Medicine
DX: I82.409 Acute embolism and thrombosis of unspecified deep veins of unspecified lower extremity (principal); N40.1 Benign prostatic hyperplasia with lower urinary tract symptoms; E78.5 Hyperlipidemia, unspecified; I10 Essential (primary) hypertension; Z79.01 Long term (current) use of 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s
CPT/HCPCS: 36415; 80053; 80061; 81001; 84153; 85025; 85610

== ENCOUNTER → 2019-09-07 08:43 | Outpatient (CLI) | payer MEDICARE, OTHER, SELFPAY ==
[2019-08-24 09:27] VITALS: BMI 30.1
--- NOTE | 2019-09-07 08:43 | BI_ITS ---
MAMMOGRAPHY - BILATERAL DIAGNOSTIC REASON FOR EXAM: Male, 68 years old. BILAT DX FOR RT PAIN AT NIPPLE X 1 MONTH - MALE PT - FAM HX OF MAT GRANDMOTHER @? AGE - NO PREV SURG''S - U/S DONE SAME DAY = NEGATIVE FINDINGS PERTINENT HISTORY: Non-contributory. TECHNIQUE: Digital examination. Mediolateral oblique (MLO) and craniocaudad (CC) views of both breasts were obtained. CAD: CAD was performed on this study. COMPARISON: None. FINDINGS: There is a small region of asymmetric soft tissue density in the right subareolar region. There is no border forming nodule or mass identified in this region. There are no dominant masses or suspicious pleomorphic calcifications. No other significant abnormalities are identified. BI/DIAG MAMM W/CAD, BILAT IMPRESSION: Findings most consistent with asymmetric mild right gynecomastia. Please refer to sonography performed yesterday. ASSESSMENT CATEGORY: BIRADS Category 2: Benign. A letter regarding these results will be sent to the patient by the facility within 30 days. FOLLOW UP RECOMMENDATION: Follow up recommended within 3 months. (B) Approximately 10% of breast cancers are not detected by mammography. A normal mammogram should not delay biopsy of a clinically suspicious abnormality. Electronically Signed: Adolfo Soni MD at 15:06 EST , Service support ,
--- NOTE | 2019-09-07 08:47 | US_ITS ---
STUDY: ULTRASOUND BREAST - RIGHT REASON FOR EXAM: Male, 68 years old. Right retroareolar pain x1 month. TECHNIQUE: Axial and longitudinal images of the RIGHT breast were performed with a high resolution ultrasound transducer. # OF IMAGES: 24 COMPARISON: None. FINDINGS: RIGHT Breast: The right retroareolar and right subareolar area of patient demonstrated pain was sonographically evaluated utilizing various imaging planes. There is no sonographically evident focal/discrete cyst, nodule or mass. No fluid collection is identified. US/Breast Limited Unilateral IMPRESSION: No sonographically evident pathology. ASSESSMENT CATEGORY: BIRADS Category 1: Negative. A letter regarding these results will be sent to the patient by the facility within 30 days. Electronically Signed: Adolfo Soni MD at 14:15 EST , Service support ,
--- NOTE | 2019-09-07 09:44 | ART_ITS ---
Reason For Study: Decreased pedal pulses Procedure A bilateral lower extremity continuous wave Doppler with analog waveform analysis,segmental pressures,and ankle brachial indexes with exercise. Left Segmental Pressures Left brachial= 145mmHg. Left thigh = 157mmHg. Left calf = 138mmHg. Left posterior tibial artery = 141mmHg. Left dorsalis pedis artery = 130mmHg. Left digit = 97 mmHg. The left dorsalis pedis waveforms are biphasic. The left posterior tibial artery waveforms are triphasic. Right Segmental Pressures Right brachial= 144mmHg. Right thigh = 161mmHg. Right calf = 130mmHg. Right posterior tibial artery = 123mmHg. Right dorsalis pedis artery = 112mmHg. Right digit = 107 mmHg. The right dorsalis pedis waveforms are biphasic. The right posterior tibial artery waveforms are triphasic. Indices The right ankle brachial index by the dorsalis pedis is 0.77. The right ankle brachial index by the posterior tibial artery is 0.85. The right digital-brachial index is 0.74. The right post exercise ankle brachial index is 0.39. The left ankle brachial index by the dorsalis pedis is 0.90. The left ankle brachial index by the posterior tibial artery is 0.97. The left digital-brachial index is 0.67. The left post exercise ankle brachial index is 0.57. Interpretation Summary Abnormal right lower extremity arterial indices and waveforms consistent with moderately severe occlusive disease. Exercise indices demonstrate immediate decline and there is recovery by 5 minutes. This would correlate clinically with vascular claudication Abnormal left lower extremity arterial indices and waveforms at rest consistent with minimal disease. Exercise indices however demonstrate clinically significant decline with recovery by 5 minutes. This would correlate clinically with vascular claudication Ordering Physician: Wade Padilla Referring Physician: Wade Padilla Performed By: Kerry Mcmahon RVT
== END ==
PROVIDERS: Family Provider Internal Medicine; PCP Internal Medicine; Referring Provider Internal Medicine; Visit Provider Internal Medicine
DX: N64.4 Mastodynia (principal); I73.9 Peripheral vascular disease, unspecified
CPT/HCPCS: 76642; 77062; 77066; 93924; G0279

== ENCOUNTER → 2019-09-30 09:01 | Outpatient (CLI) | payer MEDICARE, OTHER, SELFPAY ==
[2019-09-29 16:13] VITALS: BMI 30.1
[2019-09-30 12:25] LABS: International Normalized Ratio 3.3; Prothrombin Time (Protime)PT. 33.4 SECONDS (11.7-14.9)
== END ==
LOC: BIMLAB 09:03
PROVIDERS: PCP Internal Medicine; Referring Provider Internal Medicine; Visit Provider Internal Medicine
DX: I82.409 Acute embolism and thrombosis of unspecified deep veins of unspecified lower extremity (principal); Z79.01 Long term (current) use of 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s
CPT/HCPCS: 36415; 85610

== ENCOUNTER 2019-10-09 08:55 | Outpatient (RCR) | payer MEDICARE, OTHER, SELFPAY ==
[2019-10-01 07:49] VITALS: BMI 30.1
[2019-10-02 12:45] LABS: International Normalized Ratio 2.7; Prothrombin Time (Protime)PT. 28.6 SECONDS (11.7-14.9)
[2019-10-09 12:51] LABS: International Normalized Ratio 2.7; Prothrombin Time (Protime)PT. 28.4 SECONDS (11.7-14.9)
== END 2019-10-09 23:59 ==
LOC: BIMLAB 08:55
PROVIDERS: Family Provider Internal Medicine; PCP Internal Medicine; Referring Provider Internal Medicine; Visit Provider Internal Medicine
DX: I82.409 Acute embolism and thrombosis of unspecified deep veins of unspecified lower extremity (principal); Z79.01 Long term (current) use of 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s
CPT/HCPCS: 36415; 85610

== ENCOUNTER → 2019-10-19 06:23 | Outpatient (CLI) | payer MEDICARE, OTHER, SELFPAY ==
[2019-04-14 09:03] VITALS: BMI 29.4
[2019-10-13 09:03] VITALS: BMI 29.5
--- NOTE | 2019-10-20 08:44 | PFT ---
INTRODUCTION: The patient is a 68-year-old male that presents for pulmonary function studies secondary to a diagnosis of COPD. Respiratory therapy reports good patient effort. Bronchodilators were used during testing. INTERPRETATION: Forced expiration spirometry demonstrates no evidence of a large airways obstructive ventilatory defect, based upon a postbronchodilator FEV1 to FVC of 71%. There was no significant response to aerosolized bronchodilators. Spirograms are of good quality and plateau normally. Body plethysmography was performed and reveals an elevated RV. Diffusing capacity by single breath CO is within normal limits at 90% of predicted. IMPRESSION: Possible small airways disease, although technically based upon spirometry there is no evidence of a large airways obstructive defect. RV elevation is of unclear significance, but can be related to air trapping.
== END ==
PROVIDERS: PCP Internal Medicine; Referring Provider Nurse Practitioner Acute Care; Visit Provider Nurse Practitioner Acute Care
DX: I10 Essential (primary) hypertension (principal); I35.0 Nonrheumatic aortic (valve) stenosis; R60.0 Localized edema; R01.1 Cardiac murmur, unspecified
CPT/HCPCS: 94060; 94726; 94729

== ENCOUNTER 2019-10-26 21:41 | Emergency (ER) | payer MEDICARE, OTHER, SELFPAY ==
[2019-10-20 06:01] VITALS: BMI 30.1
[2019-10-26 21:42] VITALS: BP 146/75; PULSE 78; RESP 16; TEMP 37.1; O2SAT 97; BMI 27.8
--- NOTE | 2019-10-26 21:56 | ED.DCSUM_ITS ---
History of Present Illness Chief Complaint: Complaint Detail of Chief Complaint: Dysuria and frequency Informant: Patient Onset: Today Current Severity: Mild Maximum Severity: Moderate Narrative: Patient presents with dysuria and frequency. He had some low-grade fevers and chills tonight. He has some mild but low back pain. Patient has a history of BPH but denies having history of UTIs. He has no other cold symptoms. - Past Medical History (1) Deep vein thrombosis (DVT) Status: Resolved (2) Asthma with acute exacerbation Status: Chronic (3) BPH (benign prostatic hyperplasia) Status: Chronic (4) COPD (chronic obstructive pulmonary disease) Status: Chronic (5) Carotid artery stenosis Status: Chronic (6) 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 reflux disease) Status: Chronic (7) Hyperlipidemia Status: Chronic (8) Hypertension Status: Chronic Past Medical History - Allergies and Home Meds Allergies/Adverse Reactions: Allergies Iodinated Contrast Media [Iodinated Contrast Media - IV Dye] Allergy (Verified 10/26/19 21:42) Unknown per patient unsure of reaction had facet spinal block about 15 years ago and per patient his surgeon said to torey iv contrast as allergy. patient was premedicated with 13-hour prep with prednisone before CT of chest with IV contrast on 07/13/2018, no reaction noted after CT. oxycodone Adverse Reaction (Verified 10/26/19 21:42) Other 'OFF THE WALL' Primary Care Physician: Wade Padilla MD [Primary Care Provider] - Prior records reviewed: Yes Surgical History: herniorrhaphy, - - Hammertoe, please see above Smoking Status: Current some day smoker Review of Systems General: Reports: Chills, Fever Eyes: Denies: Visual changes - bilaterally ENT: Denies: Bilateral ear pain Cardiovascular: Denies: Chest pain Respiratory: Denies: Dyspnea, Cough Gastrointestinal: Reports: Abdominal pain. Denies: Nausea, Vomiting, Diarrhea Genitourinary: Reports: Dysuria, Frequency Musculoskeletal: Denies: Extremity Pain Skin: Denies: Rash Allergy: Denies: Uticaria Physical Exam Vital Signs/Narrative: Vital Signs Temp Pulse Resp BP Pulse Ox 10/26/19 21:42 98.7 F 78 16 146/75 H 97 Inital Vital Signs reviewed: Yes General: Well nourished, Well developed Head: Normocephalic ENT: Moist mucous membranes Neck: Supple Cardiovascular: Regular rate, Regular rhythm Respiratory: No distress, CTA bilaterally Abdomen: Soft, Tender - Suprapubic tenderness. Back: Negative for: CVA tenderness Skin: Normal color Neurological: Alert, Oriented x3 Psychological: Normal affect Diagnostic/Tx/Re-eval Laboratory Results 10/26/19 22:15 Urine Color Yellow Urine Clarity Sl. Cloudy Urine pH 7.0 Ur Specific [place] 1.010 Urine Protein 30 H Urine Glucose (UA) Normal Urine Ketones Negative Urine Occult Blood 50 H Urine Nitrite Positive H Urine Bilirubin Negative Urine Urobilinogen Normal Ur Leukocyte Esterase 500 H Urine RBC 0-5 SEEN Urine WBC 50-100 SEEN Ur Squamous Epith Cells 0-5 SEEN Urine Bacteria 2+ Urine Mucus 0 SEEN - Medical Decision Making Post void residual bladder scan was performed and patient has no significant retention. Urine is infected and culture has been sent. Patient has no CVA tenderness and did not believe he has pyelonephritis. Patient will treat with a 3-day course of Bactrim. He was advised to have his Coumadin level rechecked late this week. ED Disposition - Plan for ED Patient: Disposition: Home or Assisted Living Diagnosis: Cystitis Instructions: Bladder Infection, Male (Adult) Prescriptions: Smz/Tmp Ds [Bactrim Ds] 1 tab PO BID #6 tab Transmission Status: Pending to [id number] Referrals: Wade Padilla MD [Primary Care Provider] - 5-7 Days
[2019-10-26 22:29] LABS: Mucous, Urine 0 SEEN /hpf (<or=2+)
[2019-10-26 22:32] LABS: Color, Urine Yellow (Yellow); Glucose, Dipstick Normal (Normal); Ketone-Dipstick Negative (Negative); Leukocyte Esterase-Dipstick 500 /ul (Negative); Nitrite-Dipstick Positive (Negative); Occult Blood-Urine 50 /ul (Negative); Protein-Dipstick 30 mg/dl (Negative); Urine Bilirubin Dipstick Negative (Negative); Urine Clarity Sl. Cloudy (Clear); Urine Urobilinogen Normal (Normal)
[2019-10-26 22:44] LABS: Bacteria 2+ /hpf (None Seen); Red Blood Cells-Urine 0-5 SEEN /hpf (0-5); Squamous Epithelial Cells - UA 0-5 SEEN /hpf (0-5); White Blood Cells 50-100 SEEN /hpf (0-5)
[2019-10-26 23:14] VITALS: PULSE 86; RESP 16; O2SAT 98
[2019-10-26] MEDS: Smz/Tmp Ds Tablet 1 TABLET PO (23:23)
== END 2019-10-26 23:27 | disposition home or self-care (01) ==
PROVIDERS: Emergency Provider Emergency Medicine; PCP Internal Medicine
DX: N30.90 Cystitis, unspecified without hematuria (principal); N40.0 Benign prostatic hyperplasia without lower urinary tract symptoms; J44.9 Chronic obstructive pulmonary disease, unspecified; I10 Essential (primary) hypertension; E78.5 Hyperlipidemia, unspecified; M54.5 Low back pain; K21.9 Gastro-esophageal reflux disease without esophagitis; F17.200 Nicotine dependence, unspecified, uncomplicated; Z79.01 Long term (current) use of 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s; Z79.899 Other long term (current) drug therapy; Z86.718 Personal history of other venous thrombosis and embolism
CPT/HCPCS: 81001; 87086; 87088; 87186; 99283

== ENCOUNTER 2019-11-02 09:52 | Outpatient (RCR) | payer MEDICARE, OTHER, SELFPAY ==
[2019-10-01 07:49] VITALS: BMI 30.1
[2019-10-30 09:59] LABS: Prothrombin Time (Protime)PT. 38.2 SECONDS (11.7-14.9)
[2019-10-30 10:05] LABS: International Normalized Ratio 3.9
[2019-11-02 12:27] LABS: International Normalized Ratio 2.9; Prothrombin Time (Protime)PT. 30.2 SECONDS (11.7-14.9)
== END 2019-11-07 23:59 ==
LOC: BIMLAB 09:52
PROVIDERS: Family Provider Internal Medicine; PCP Internal Medicine; Referring Provider Internal Medicine; Visit Provider Internal Medicine
DX: I82.409 Acute embolism and thrombosis of unspecified deep veins of unspecified lower extremity (principal); Z79.01 Long term (current) use of 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s
CPT/HCPCS: 36415; 85610

== ENCOUNTER → 2019-11-23 10:14 | Outpatient (CLI) | payer MEDICARE, OTHER, SELFPAY ==
[2019-11-23 09:36] VITALS: BMI 27.8
[2019-11-23 12:10] LABS: Mucous, Urine 0 SEEN /hpf (<or=2+)
[2019-11-23 12:45] LABS: Absolute Lymphocyte Count 1.39 X10^3/uL (0.83-4.51); Absolute Neutrophil Count 4.5 X10^3/uL (2.0-7.7); Basophil# 0.03 X10^3/uL; Basophil% 0.4 % (0-1); Eosinophils% 1.4 % (0-5); Hemoglobin 14.6 g/dL (13.0-16.5); Lymphocyte # 1.39 X10^3/ul (4.0); Lymphocyte % 19.8 % (19-41); Mean Corp Hgb Conc 31.7 g/dL (32-36); Mean Corpuscular Hgb 32.4 pg (27.0-32.0); Mean Corpuscular Volume 102.2 fL (80-94); Mean Platelet Vol. 9.9 fl (6.2-12.0); Monocyte# 0.94 X10^3/uL; Monocyte% 13.4 % (0-10); NRBC Flagged by Analyzer 0 % (0-5); Neutrophil # 4.54 X10^3/uL (2.7-7.7); Neutrophil % 64.7 % (47-70); Platelet Count 174 K/mm3 (150-450); RBC Distribution Width CV 14.8 % (11.6-14.6); RBC Distribution Width SD 55.9 fl (35.1-43.9)
[2019-11-23 13:24] LABS: Anion Gap 9 (5-15); BUN 14 mg/dL (7-18); BUN/Creat Ratio 13.3 RATIO (10-20); Chloride 104 mmol/L (98-107); Creatinine, Serum 1.05 mg/dL (0.70-1.30); EST Glomerular Filtration Rate 74 mL/min (>60); Est Glom Filt Rate - Afr Amer 90 mL/min (>60); Glucose 92 mg/dL (74-106); Potassium 4.2 mmol/L (3.5-5.1); Sodium Level 139 mmol/L (136-145)
[2019-11-23 15:50] LABS: Color, Urine Yellow (Yellow); Glucose, Dipstick Normal (Normal); Ketone-Dipstick Negative (Negative); Leukocyte Esterase-Dipstick 500 /ul (Negative); Nitrite-Dipstick Positive (Negative); Occult Blood-Urine 25 /ul (Negative); Protein-Dipstick 15 mg/dl (Negative); Specific Gravity, Urine 1.015 (1.002-1.030); Urine Bilirubin Dipstick Negative (Negative); Urine Clarity Cloudy (Clear); Urine Urobilinogen Normal (Normal)
[2019-11-23 16:16] LABS: Bacteria 2+ /hpf (None Seen); Red Blood Cells-Urine 0-5 SEEN /hpf (0-5)
[2019-11-23 16:17] LABS: Squamous Epithelial Cells - UA 0-5 SEEN /hpf (0-5); White Blood Cells >100 SEEN /hpf (0-5)
== END ==
PROVIDERS: PCP Internal Medicine; Referring Provider Internal Medicine; Visit Provider Internal Medicine
DX: N39.0 Urinary tract infection, site not specified (principal); R30.0 Dysuria
CPT/HCPCS: 36415; 80048; 81001; 85025; 87086; 87088; 87186

== ENCOUNTER 2019-12-07 11:15 | Outpatient (RCR) | payer MEDICARE, OTHER, SELFPAY ==
[2019-11-02 10:12] VITALS: BMI 27.8
[2019-11-18 12:38] LABS: Prothrombin Time (Protime)PT. 31.2 SECONDS (11.7-14.9)
[2019-11-25 12:35] LABS: International Normalized Ratio 2.9; Prothrombin Time (Protime)PT. 30.4 SECONDS (11.7-14.9)
[2019-11-27 16:56] LABS: International Normalized Ratio 2.8; Prothrombin Time (Protime)PT. 29.6 SECONDS (11.7-14.9)
[2019-12-01 12:17] LABS: International Normalized Ratio 3.1; Prothrombin Time (Protime)PT. 31.9 SECONDS (11.7-14.9)
[2019-12-03 12:23] LABS: International Normalized Ratio 3.3
[2019-12-07 15:00] LABS: Prothrombin Time (Protime)PT. 31.4 SECONDS (11.7-14.9)
== END 2019-12-07 18:00 | disposition home or self-care (01) ==
LOC: MTLAB 11:15
PROVIDERS: Family Provider Internal Medicine; PCP Internal Medicine; Referring Provider Internal Medicine; Visit Provider Internal Medicine
DX: I82.409 Acute embolism and thrombosis of unspecified deep veins of unspecified lower extremity (principal); Z79.01 Long term (current) use of 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s
CPT/HCPCS: 36415; 85610

== ENCOUNTER → 2019-12-10 11:41 | Outpatient (CLI) | payer MEDICARE, OTHER, SELFPAY ==
[2019-12-07 13:35] VITALS: BMI 27.8
== END ==
PROVIDERS: PCP Internal Medicine; Visit Provider Internal Medicine
DX: Z79.01 Long term (current) use of 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s (principal)
CPT/HCPCS: 85610

== ENCOUNTER → 2019-12-14 | Outpatient (CLI) | payer MEDICARE, OTHER, SELFPAY ==
[2019-12-07 13:35] VITALS: BMI 27.8
[2019-12-14 17:01] LABS: Prothrombin Time (Protime)PT. 21.8 SECONDS (11.7-14.9)
== END | disposition home or self-care (01) ==
LOC: LABSPEC 16:24
PROVIDERS: PCP Internal Medicine; Referring Provider Internal Medicine; Visit Provider Internal Medicine
DX: Z79.01 Long term (current) use of 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s (principal)
CPT/HCPCS: 85610

== ENCOUNTER → 2019-12-17 15:25 | Outpatient (CLI) | payer MEDICARE, OTHER, SELFPAY ==
[2019-12-15 10:47] VITALS: BMI 27.8
[2019-12-17 16:16] LABS: Bacteria 0 SEEN /hpf (None Seen); Mucous, Urine 0 SEEN /hpf (<or=2+)
[2019-12-17 16:33] LABS: Absolute Lymphocyte Count 2.06 X10^3/uL (0.83-4.51); Absolute Neutrophil Count 6.1 X10^3/uL (2.0-7.7); Basophil# 0.02 X10^3/uL; Basophil% 0.2 % (0-1); Eosinophil# 0.12 X10^3/uL; Eosinophils% 1.3 % (0-5); Hematocrit 43.4 % (40-54); Hemoglobin 14.1 g/dL (13.0-16.5); Lymphocyte # 2.06 X10^3/ul (4.0); Lymphocyte % 22.4 % (19-41); Mean Corp Hgb Conc 32.5 g/dL (32-36); Mean Corpuscular Hgb 32.2 pg (27.0-32.0); Mean Corpuscular Volume 99.1 fL (80-94); Mean Platelet Vol. 9.6 fl (6.2-12.0); Monocyte# 0.88 X10^3/uL; Monocyte% 9.6 % (0-10); NRBC Flagged by Analyzer 0 % (0-5); Neutrophil # 6.09 X10^3/uL (2.7-7.7); Neutrophil % 66.3 % (47-70); Platelet Count 220 K/mm3 (150-450); RBC Distribution Width CV 14.4 % (11.6-14.6); RBC Distribution Width SD 52.7 fl (35.1-43.9); Red Blood Count 4.38 M/mm3 (4.6-6.2); White Blood Count 9.2 K/mm3 (4.4-11.0)
[2019-12-17 16:38] LABS: International Normalized Ratio 1.8; Prothrombin Time (Protime)PT. 19.9 SECONDS (11.7-14.9)
[2019-12-17 16:43] LABS: Color, Urine Straw (Yellow); Glucose, Dipstick Normal (Normal); Ketone-Dipstick Negative (Negative); Leukocyte Esterase-Dipstick 500 /ul (Negative); Nitrite-Dipstick Positive (Negative); Occult Blood-Urine 10 /ul (Negative); Protein-Dipstick Negative (Negative); Urine Bilirubin Dipstick Negative (Negative); Urine Clarity Cloudy (Clear); Urine Urobilinogen Normal (Normal)
[2019-12-17 16:45] LABS: Anion Gap 6 (5-15); BUN 18 mg/dL (7-18); Calcium,Total 9.4 mg/dL (8.5-10.1); Chloride 104 mmol/L (98-107); Creatinine, Serum 0.95 mg/dL (0.70-1.30); EST Glomerular Filtration Rate 84 mL/min (>60); Est Glom Filt Rate - Afr Amer 101 mL/min (>60); Glucose 122 mg/dL (74-106); Potassium 3.6 mmol/L (3.5-5.1); Sodium Level 135 mmol/L (136-145)
[2019-12-17 17:08] LABS: Squamous Epithelial Cells - UA 0-5 SEEN /hpf (0-5)
[2019-12-17 17:10] LABS: White Blood Cells 50-100 SEEN /hpf (0-5)
[2019-12-17 17:11] LABS: Transitional Epithelial - Ur 0-5 SEEN /hpf (0-5)
[2019-12-17 17:12] LABS: Red Blood Cells-Urine 0-5 SEEN /hpf (0-5)
== END ==
PROVIDERS: Nurse Practitioner Family; PCP Internal Medicine; Referring Provider Internal Medicine; Visit Provider Internal Medicine
DX: N39.0 Urinary tract infection, site not specified (principal); I82.409 Acute embolism and thrombosis of unspecified deep veins of unspecified lower extremity
CPT/HCPCS: 80048; 81001; 85025; 85610

== ENCOUNTER 2019-12-24 20:06 | Inpatient (IN) | payer MEDICARE, OTHER, SELFPAY ==
[2019-12-24 09:33] VITALS: BMI 27.8
[2019-12-24 20:07] VITALS: BP 131/86; PULSE 79; RESP 18; TEMP 36.7; O2SAT 95; BMI 28.3
[2019-12-24 20:33] LABS: Mucous, Urine 0 SEEN /hpf (<or=2+); Squamous Epithelial Cells - UA 0 SEEN /hpf (0-5)
[2019-12-24 20:39] LABS: Color, Urine Yellow (Yellow); Glucose, Dipstick Normal (Normal); Ketone-Dipstick Negative (Negative); Leukocyte Esterase-Dipstick 500 /ul (Negative); Nitrite-Dipstick Positive (Negative); Occult Blood-Urine 150 /ul (Negative); Protein-Dipstick 100 mg/dl (Negative); Specific Gravity, Urine 1.015 (1.002-1.030); Urine Clarity Cloudy (Clear); Urine Urobilinogen 4 mg/dl (Normal)
[2019-12-24 20:40] VITALS: BP 110/64; PULSE 714; RESP 18; TEMP 36.7; O2SAT 97
[2019-12-24 20:41] LABS: Urine Bilirubin Dipstick 1 mg/dL (Negative)
[2019-12-24 20:50] LABS: White Blood Cells >100 SEEN /hpf (0-5)
[2019-12-24 20:51] LABS: Bacteria 1+ /hpf (None Seen); Red Blood Cells-Urine 5-10 SEEN /hpf (0-5)
[2019-12-24] MEDS: 0.9% Normal Saline 1,000 ML 150 ML IV (20:52)
[2019-12-24 20:56] LABS: Absolute Lymphocyte Count 2.24 X10^3/uL (0.83-4.51); Absolute Neutrophil Count 5.9 X10^3/uL (2.0-7.7); Basophil# 0.03 X10^3/uL; Basophil% 0.3 % (0-1); Eosinophil# 0.18 X10^3/uL; Hematocrit 42.1 % (40-54); Hemoglobin 13.8 g/dL (13.0-16.5); Lymphocyte # 2.24 X10^3/ul (4.0); Lymphocyte % 24.3 % (19-41); Mean Corp Hgb Conc 32.8 g/dL (32-36); Mean Corpuscular Hgb 32.9 pg (27.0-32.0); Mean Corpuscular Volume 100.2 fL (80-94); Mean Platelet Vol. 8.8 fl (6.2-12.0); Monocyte# 0.83 X10^3/uL; NRBC Flagged by Analyzer 0 % (0-5); Neutrophil # 5.91 X10^3/uL (2.7-7.7); Platelet Count 243 K/mm3 (150-450); RBC Distribution Width CV 14.2 % (11.6-14.6); RBC Distribution Width SD 52.9 fl (35.1-43.9); White Blood Count 9.2 K/mm3 (4.4-11.0)
[2019-12-24 21:11] LABS: Anion Gap 7 (5-15); BUN 17 mg/dL (7-18); BUN/Creat Ratio 17.6 RATIO (10-20); Chloride 103 mmol/L (98-107); Creatinine, Serum 0.96 mg/dL (0.70-1.30); EST Glomerular Filtration Rate 82 mL/min (>60); Est Glom Filt Rate - Afr Amer 99 mL/min (>60); Estimated Creatinine Clearance 77.35 ml/min; Glucose 94 mg/dL (74-106); Potassium 3.6 mmol/L (3.5-5.1); Sodium Level 137 mmol/L (136-145)
[2019-12-24] MEDS: Phenazopyridine 95 MG Tablet 190 MG PO (21:13)
[2019-12-24] MEDS: Ciprofloxacin 400 MG/200 ML BAG 200 MG IV (21:14)
--- NOTE | 2019-12-24 21:15 | RAD_ITS ---
STUDY: X-RAY CHEST REASON FOR EXAM: Male, 69 years old. FEVER, COUGH, PT HAS UTI TECHNIQUE: Single AP portable view of the chest. COMPARISON: December 04, 2017 FINDINGS: The lungs are clear and expanded. There is no demonstrated pleural abnormality. Normal size heart. Normal mediastinum and cher. Normal visualized pulmonary arteries. Normal visualized aortic arch and descending thoracic aorta. Normal visualized thoracic spine. Normal visualized ribs, clavicles, and shoulders. There is no demonstrated abnormality of the visualized soft tissue structures of the upper abdomen. RAD/Chest 1 View (Portable) IMPRESSION: Normal x-ray examination of the chest. Electronically Signed: Rashid Lehman MD at 21:49 EDT , Service support ,
--- NOTE | 2019-12-24 21:33 | ED.VISSUMM ---
- ER Visit Summary Date of Service: 12/24/19 Chief Complaint: [Dysuria and fever] History of Present Illness: The patient is a 69 M [presents the emergency department with symptoms off and on for the last 2 to 3 months. Patient states that he is had multiple urinary tract infections and has been on multiple rounds of antibiotics. Patient started again this week with fevers as well as chills and sweats. He complains of dysuria as well as frequency. Patient noticed some bloody tissue that he passed from his penis earlier today. He denies any nausea or vomiting. He also describes a cough that he is had for weeks as well as a sore throat that he is had for weeks. Patient is a smoker and has history of COPD. Patient with history of hypertension, BPH, DVT history, hypertension, and high cholesterol.] Patient currently on cephalexin daily. Physical Examination: [HEENT-PERRLA, EOMI. Cranial nerves II through XII grossly intact. TMs clear. Mucous membranes moist. No adenopathy. Cardiovascular-regular rate and rhythm without murmur or ectopy Lungs-clear to auscultation, chest wall stable without crepitus or subcu emphysema Abdomen-normoactive bowel sounds, soft. Patient has tenderness over suprapubic region on palpation. He is got some mild guarding. There is no rebound, rigidity, or peritoneal signs. Extremities-intact ?4, normal range of motion, normal pulses, atraumatic] Test Results: [CBC with differential obtained showed a white count of 9.2, hemoglobin 13.8, hematocrit 42, placed 243. Chemistries unremarkable. INR was 2.0. Urinalysis was positive for 500 cassette esterase as well as positive for nitrites and greater than 100 W BCs and +1 bacteria.] Emergency Department Course and Treatment: [Blood cultures ordered as well as urine cultures. Lactate ordered. Patient started on Cipro 400 mg IV. His last culture from last month grew out presumptive E. coli that was sensitive to Cipro.] Treatment Plan: Admit for IV antibiotics] Disposition: [Admit] Impression: [UTI-failed outpatient therapy] This note was generated with [employer] dictation software. It may contain incorrect words, spelling, and punctuation that were not noted in review of the chart prior to signing ED Disposition - Plan for ED Patient: Referrals: Wade Padilla MD [Primary Care Provider] -
[2019-12-24 21:34] LABS: Lactic Acid 1.1 mmol/L (0.4-1.9)
--- NOTE | 2019-12-24 21:35 | HP.PCM_ITS ---
History of Present Illness Date of Admission: 12/24/19 Chief Complaint: Dysuria and fever The patient is a 69 year old M with a PMH as below who presents with 1 week symptoms of dysuria, burning with urination as well as lower abdominal pelvic pain. He says that he has had recurrent UTIs over the last 2 to 3 months and chronic chills since then. He has been given multiple doses of oral antibiotics and nothing seems to be helping. This morning he says that he was not urinating while sitting down and noticed a bloody mucus discharge which is new. He sees urology as an outpatient. He is scheduled to have a cystoscopy January 18, though that will likely change given coronavirus. He states that he had had a fever at home but he has no fevers here, is not tachycardic and he does not have a leukocytosis. He does have perineal pain. UA on admission with positive nitrites, 500 leukocyte esterase, greater than 100 WBCs, and 1+ urine bacteria. 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 use of 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 (Chronic) Skin lesion (Chronic) Intermittent claudication (Chronic) Abdominal pain (Chronic) COPD (chronic obstructive pulmonary disease) (Chronic) LIZA (obstructive sleep apnea) (Chronic) Tobacco abuse (Chronic) Hyperlipidemia (Chronic) Peripheral neuropathy (Chronic) Obesity (Chronic) Hemorrhoids (Chronic) BPH (benign prostatic hyperplasia) (Chronic) Carotid artery stenosis (Chronic) Hypertension (Chronic) SOB (shortness of breath) (Chronic) Medical History: Medical History (Last Reviewed 12/24/19 @ 09:33 by Gerda Sanchez) Post-phlebitic syndrome (Chronic) I87.009 Hypersomnia (Chronic) G47.10 Tobacco abuse (Chronic) Z72.0 Heart murmur (Chronic) R01.1 COPD (chronic obstructive pulmonary disease) (Chronic) J44.9 Chronic sinusitis (Chronic) J32.9 Hyperlipidemia (Chronic) E78.5 Asthma with acute exacerbation (Chronic) J45.901 Hernia (Chronic) K46.9 [address] had [address] for umbilical hernia Deep vein blood clot of left lower extremity (Acute) I82.402 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 reflux disease) (Chronic) K21.9 buttermaker continuous churn current use of 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 (Chronic) Z79.01 Deep vein thrombosis (DVT) (Resolved) I82.409 Skin lesion (Chronic) L98.9 Intermittent claudication (Chronic) I73.9 Chest pain (Resolved) R07.9 COPD (chronic obstructive pulmonary disease) (Chronic) J44.9 LIZA (obstructive sleep apnea) (Chronic) G47.33 Tobacco abuse (Chronic) Z72.0 Hyperlipidemia (Chronic) E78.5 Peripheral neuropathy (Chronic) G62.9 Obesity (Chronic) E66.9 Carotid artery stenosis (Chronic) I65.29 Hypertension (Chronic) I10 SOB (shortness of breath) (Chronic) R06.02 Acute sinusitis J01.90 Bronchitis J40 Cough R05 Dyspnea R06.00 History of blood clots Z86.718 Wheezing R06.2 Allergies Iodinated Contrast Media [Iodinated Contrast Media - IV Dye] Allergy (Verified 12/24/19 20:09) Unknown per patient unsure of reaction had facet spinal block about 15 years ago and per patient his surgeon said to torey iv contrast as allergy. patient was premedicated with 13-hour prep with prednisone before CT of chest with IV contrast on 07/13/2018, no reaction noted after CT. oxycodone Adverse Reaction (Verified 12/24/19 20:09) Other 'OFF THE WALL' Home Medications: Ambulatory Orders Medication Instructions Recorded tamsulosin 0.4 mg capsule 0.4 mg PO DAILY@1730 #90 cap 12/09/18 warfarin 6 mg tablet 6 mg PO MOWESA tab 04/13/19 rosuvastatin 20 mg tablet 20 mg PO DAILY #90 tab 05/07/19 calcium carbonate 600 mg calcium 600 mg PO DAILY 08/24/19 (1,500 mg) tablet hydrochlorothiazide 25 mg tablet 25 mg PO QDAY #90 tab 08/28/19 glycopyrrolate 9 mcg-formoterol 2 puff INHALATION BID 11/02/19 4.8 mcg HFA aerosol inhaler cephalexin 250 mg capsule 250 mg PO DAILY #30 cap 12/07/19 gabapentin 300 mg capsule 300 mg PO BID 90 Days #180 cap 12/07/19 albuterol sulfate 90 mcg/actuation 2 puff INHALATION Q6H PRN #8.5 g 12/15/19 aerosol inhaler benzonatate 100 mg capsule 200 mg PO QHS PRN #90 cap 12/15/19 Warfarin Sodium 4 mg PO SUTUTHFR 12/24/19 phenazopyridine 100 mg tablet 100 mg PO TID PRN 7 Days #14 tab 12/24/19 Surgical History: Surgical History (Last Reviewed 12/24/19 @ 09:33 by Gerda Sanchez) History of wisdom tooth extraction (Resolved) K08.409 History of arthroscopy of left knee (Resolved) Z98.890 Status post hammer toe correction (Resolved) Z98.890, Z87.39 History of nasal polypectomy (Resolved) Z98.890, Z87.09 History of umbilical hernia repair (Resolved) Z98.890, Z87.19 Right foot operation after an accident (Resolved) History of back surgery Z98.890 07/06/2018, microdiscectomy, L2-L3 right. Surgical History: herniorrhaphy, - - Hammertoe, please see above Psychiatric History: No pertinent psych hx Smoking Status: Current some day smoker Tobacco Use: Cigarettes Alcohol: None Drugs: None - *Family History Maternal Family History: Family History (Last Reviewed 12/24/19 @ 09:33 by Gerda Sanchez) Father Lung cancer Uncle Cancer Grandfather Myocardial infarction Grandmother Myocardial infarction Mother Myocardial infarction, Onset Age: 90 Review of Systems Constitutional: Reports: Chills, Fever HEENT: Denies: Head Aches, Sinus Congestion, Sinus Drainage Cardiovascular: Denies: Chest Pain, Palpitations Respiratory: Denies: Cough, Shortness of breath at rest, Sputum production Gastrointestinal: Denies: Abdominal Pain, Nausea, Vomiting Genitourinary: Reports: Dysuria, Frequency, Hematuria, Retention, - - Perineal tenderness Musculoskeletal: Denies: Joint Pain, Joint Tenderness Skin: Denies: Rash, Wounds Neurological: Denies: Numbness, Tingling, Focal weakness Psychiatric: Denies: Anxiety, Depression Hematologic/ Lymphatic: Denies: Easy Bruising, Easy Bleeding VTE Information - Inpt Only VTE Present on Admission: No - Physical Exam Vitals/I&O's: Vital Signs Temp Pulse Resp BP Pulse Ox 98.1 F 714 H 18 110/64 97 12/24/19 20:40 12/24/19 20:40 12/24/19 20:40 12/24/19 20:40 12/24/19 20:40 Oxygen Delivery Method Room Air Weight: 203 lb Body Mass Index (BMI) 28.3 General: Alert, Oriented x3, Cooperative, No apparent distress HEENT: Atraumatic, PERRLA, EOMI, Normocephalic Oral: Moist Mucosa Neck: Supple, No JVD Lungs: Clear to auscultation, Normal air movement, No rhonchi, No wheeze, No rales, Diminished Cardiovascular: Regular rate, Regular Rhythm, Normal S1, Normal S2, No murmurs Abdomen: Soft, Non Tender, Non-Distended, No Hepato-splenomegaly, - - perineal tenderness to palpation Extremities: No edema, Capillary Refill Less than 3 Seconds Skin: No rashes, No breakdown Neurological: Neuro grossly intact, Sensory exam intact to light touch and pain Psych/Mental Status: Normal Affect, Appropriate Laboratory Results 12/24/19 20:20: Urine Color Yellow, Urine Clarity Cloudy, Urine pH 6.0, Ur Specific [place] 1.015, Urine Protein 100 H, Urine Glucose (UA) Normal, Urine Ketones Negative, Urine Occult Blood 150 H, Urine Nitrite Positive H, Urine Bilirubin 1 H, Urine Urobilinogen 4 H, Ur Leukocyte Esterase 500 H, Urine RBC 5- 10 SEEN, Urine WBC >100 SEEN, Ur Squamous Epith Cells 0 SEEN, Urine Bacteria 1+, Urine Mucus 0 SEEN 12/24/19 20:45: WBC 9.2, RBC 4.20 L, Hgb 13.8, Hct 42.1, MCV 100.2 H, MCH 32.9 H , MCHC 32.8, RDW Std Deviation 52.9 H, RDW Coeff of Marcelle 14.2, Plt Count 243, MPV 8.8, Immature Gran % (Auto) 0.400, Neut % (Auto) 64.0, Lymph % (Auto) 24.3, Floyd % (Auto) 9.0, Eos % (Auto) 2.0, Baso % (Auto) 0.3, Absolute Neuts (auto) 5.9, Absolute Lymphs (auto) 2.24, Nucleated RBC % 0 12/24/19 20:45: PT 22.0 H, INR 2.0 12/24/19 20:45: Sodium 137, Potassium 3.6, Chloride 103, Carbon Dioxide 27.0, Anion Gap 7, BUN 17, Creatinine 0.96, Estim Creat Clear Calc 77.35, Est GFR (MDRD) Af Amer 99, Est GFR (MDRD) Non-Af 82, BUN/Creatinine Ratio 17.6, Glucose 94, Calcium 9.0 12/24/19 20:45: Lactic Acid 1.1 Current Medications Sodium Chloride () 1,000 mls @ 150 mls/hr IV .[id number] CORTNEY Last Admin: 12/24/19 20:52 Dose: 150 mls/hr Documented by: Ciprofloxacin (Cipro) 400 mg in 200 mls @ 200 mls/hr IV X1 ONE Stop: 12/24/19 22:06 Last Admin: 12/24/19 21:14 Dose: 200 mls/hr Documented by: Assessment/Plan All Active Problems (Last Reviewed 12/24/19 @ 09:33 by Gerda Sanchez) History of wisdom tooth extraction (Resolved) History of arthroscopy of left knee (Resolved) Status post hammer toe correction (Resolved) History of nasal polypectomy (Resolved) History of umbilical hernia repair (Resolved) Edema (Acute) Aortic regurgitation (Acute) Aortic stenosis (Acute) Right foot operation after an accident (Resolved) Deep vein blood clot of left lower extremity (Acute) Deep vein thrombosis (DVT) (Resolved) Urinary retention (Acute) Chest pain (Resolved) dyspnea (Acute) Acute right hip pain (Resolved) Atypical chest pain (Resolved) Chronic bronchitis (Resolved) Constipation (Resolved) Hand, foot and mouth disease (Resolved) PND (post-nasal drip) (Resolved) Sacroiliitis (Resolved) 1. Prostatitis/BPH -Not septic, he is on chronic Keflex of 250 mg p.o. daily -We will transition to treatment dose Cipro for 6 weeks -Continue with Flomax -Urine culture is pending, his previous cultures at the end of November were E. coli that were sensitive to Cipro 2. History of provoked DVTs -He had a DVT after knee surgery and then he had DVT after hammertoe surgery and therefore he has been placed on Coumadin -I recommend that he follow-up with hematology as an outpatient as he could likely discontinue his anticoagulation since both previous DVTs were provoked -In the meantime we will continue with his Coumadin, INR is 2.0 given that he is going to be on Cipro he will likely need this adjusted to a lower dosing -We will decrease by half and continue to monitor his INR 3. HTN/HLD -Blood pressure is stable, continue with his home BP medication -Continue with his statin 4. COPD/tobacco abuse -Currently in exacerbation -Advised tobacco cessation -Continue with his home inhalers DVT: Coumadin OBSV E&M: [id number] Initial observation care L3
[2019-12-24 22:01] VITALS: BP 118/53; PULSE 69; RESP 20; TEMP 37.2; O2SAT 96
[2019-12-24 22:28] VITALS: BP 135/64; PULSE 75; RESP 16; TEMP 36.7; O2SAT 96; BMI 28.6
[2019-12-24 22:30] VITALS: BMI 28.5
[2019-12-24] MEDS: Acetaminophen 325 MG Tablet 650 MG PO (23:33)
[2019-12-24] MEDS: Gabapentin 300 MG Capsule PO (23:33)
[2019-12-25] VITALS (9 sets, daily range): BP systolic 110–151; BP diastolic 51–78; PULSE 60–79; RESP 16–20; TEMP 36.3–37.1; O2SAT 92–100
[2019-12-25] MEDS: Albuterol 2.5 MG/3 ML VIAL.NEB. INHALATION (04:29)
[2019-12-25] MEDS: Phenazopyridine 95 MG Tablet PO ×2 (05:04→21:54)
[2019-12-25] MEDS: 0.9% Saline Lock 10 ML Syringe IV ×3 (05:04→21:44)
[2019-12-25 05:45] LABS: Absolute Lymphocyte Count 2.19 X10^3/uL (0.83-4.51); Basophil# 0.03 X10^3/uL; Basophil% 0.3 % (0-1); Eosinophil# 0.14 X10^3/uL; Eosinophils% 1.5 % (0-5); Hematocrit 37.9 % (40-54); Hemoglobin 12.5 g/dL (13.0-16.5); Lymphocyte # 2.19 X10^3/ul (4.0); Mean Platelet Vol. 8.8 fl (6.2-12.0); Monocyte# 0.79 X10^3/uL; Monocyte% 8.6 % (0-10); NRBC Flagged by Analyzer 0 % (0-5); Neutrophil # 5.95 X10^3/uL (2.7-7.7); Neutrophil % 65.2 % (47-70); Platelet Count 207 K/mm3 (150-450); RBC Distribution Width CV 14.4 % (11.6-14.6); RBC Distribution Width SD 52.5 fl (35.1-43.9); Red Blood Count 3.79 M/mm3 (4.6-6.2); White Blood Count 9.1 K/mm3 (4.4-11.0)
[2019-12-25 06:02] LABS: Anion Gap 8 (5-15); BUN 15 mg/dL (7-18); Calcium,Total 8.3 mg/dL (8.5-10.1); Chloride 106 mmol/L (98-107); Creatinine, Serum 0.83 mg/dL (0.70-1.30); EST Glomerular Filtration Rate 97 mL/min (>60); Est Glom Filt Rate - Afr Amer 118 mL/min (>60); Estimated Creatinine Clearance 86.73 ml/min; Glucose 108 mg/dL (74-106); Potassium 3.3 mmol/L (3.5-5.1); Sodium Level 138 mmol/L (136-145)
[2019-12-25 06:08] LABS: Prothrombin Time (Protime)PT. 22.5 SECONDS (11.7-14.9)
[2019-12-25] MEDS: Ipratropium/Albuterol Sulfate 3 ML AMPUL.NEB INHALATION ×2 (07:06→18:51)
[2019-12-25] MEDS: hydroCHLOROthiazide 25 MG Tablet PO (08:21)
[2019-12-25] MEDS: Calcium Carbonate 500 MG Tablet PO (08:21)
[2019-12-25] MEDS: Gabapentin 300 MG Capsule PO ×2 (08:21→21:44)
[2019-12-25] MEDS: Acetaminophen 325 MG Tablet 650 MG PO ×2 (08:25→16:01)
[2019-12-25] MEDS: Ciprofloxacin 500 MG Tablet PO (08:26)
--- NOTE | 2019-12-25 11:00 | CASEMGMT ---
RN CM Assessment Note Presentation: Chronic UTI Intro role of CM and purpose of RN CM assessment to patient in room. Pt is awake, alert and able to participate in assessment. Demographics, PCP and Pharmacy verified. Pt states he does not use ambulatory DME, is independent and does not anticipate dc needs. PCP: Dr. Padilla Specialists: Dr. Arechiga Preferred Pharmacy: [facility] Insurance: [facility] Prescription Benefit: yes LNOK : , Taylor Lindquist Living Arrangements: Lives in one story home, kitchen is down a few stairs. Pt states he has no care needs, is independent in ADL's. Transportation: drives DME: Cpap HHC: none. SNF: Pt states he has been to [facility] rehab in past Patient DC goals: Home DC PLAN: Home on dc. RN CM advised to contact cm for any concerns/needs that may arise. Claudio COBB RN ACM
--- NOTE | 2019-12-25 12:16 | CON.PCM_ITS ---
Problem List (1) Gross hematuria Status: Acute Reason for Consult Date of Consultation: 12/25/19 Reason for Consultation: Hematuria UTI BPH History of Present Illness: The patient is a 69 year old male who I was seen as an outpatient for a work-up for BPH and also history of recurrent UTIs. He called me late yesterday reported bright red blood and bleeding burning with urination he is on Coumadin recommended to go to the hospital he was admitted and I was consulted to see the patient. The urine is now clear orange color which is better urine cultures are pending he is on broad-spectrum antibiotics. I had to have him do a CAT scan with IV contrast to further evaluate the bladder kidneys and ureter prostate to see with causing the bleeding rule out a tumor etc. 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) Z79.01 Deep vein thrombosis (DVT) (Resolved) I82.409 Skin lesion (Chronic) L98.9 Intermittent claudication (Chronic) I73.9 Chest pain (Resolved) R07.9 COPD (chronic obstructive pulmonary disease) (Chronic) J44.9 LIZA (obstructive sleep apnea) (Chronic) G47.33 Tobacco abuse (Chronic) Z72.0 Hyperlipidemia (Chronic) E78.5 Peripheral neuropathy (Chronic) G62.9 Obesity (Chronic) E66.9 Carotid artery stenosis (Chronic) I65.29 Hypertension (Chronic) I10 SOB (shortness of breath) (Chronic) R06.02 Acute sinusitis J01.90 Bronchitis J40 Cough R05 Dyspnea R06.00 History of blood clots Z86.718 Wheezing R06.2 Allergies Iodinated Contrast Media [Iodinated Contrast Media - IV Dye] Allergy (Verified 12/24/19 20:09) Unknown per patient unsure of reaction had facet spinal block about 15 years ago and per patient his surgeon said to torey iv contrast as allergy. patient was premedicated with 13-hour prep with prednisone before CT of chest with IV contrast on 07/13/2018, no reaction noted after CT. oxycodone Adverse Reaction (Verified 12/24/19 20:09) Other 'OFF THE WALL' Home Medications: Ambulatory Orders Medication Instructions Recorded tamsulosin 0.4 mg capsule 0.4 mg PO DAILY@1730 #90 cap 12/09/18 warfarin 6 mg tablet 6 mg PO MOWESA tab 04/13/19 rosuvastatin 20 mg tablet 20 mg PO DAILY #90 tab 05/07/19 calcium carbonate 600 mg calcium 600 mg PO DAILY 08/24/19 (1,500 mg) tablet hydrochlorothiazide 25 mg tablet 25 mg PO QDAY #90 tab 08/28/19 glycopyrrolate 9 mcg-formoterol 2 puff INHALATION BID 11/02/19 4.8 mcg HFA aerosol inhaler cephalexin 250 mg capsule 250 mg PO DAILY #30 cap 12/07/19 gabapentin 300 mg capsule 300 mg PO BID 90 Days #180 cap 12/07/19 albuterol sulfate 90 mcg/actuation 2 puff INHALATION Q6H PRN #8.5 g 12/15/19 aerosol inhaler benzonatate 100 mg capsule 200 mg PO QHS PRN #90 cap 12/15/19 Finasteride 5 mg PO QHS 12/24/19 Warfarin Sodium 4 mg PO SUTUTHFR 12/24/19 phenazopyridine 100 mg tablet 100 mg PO TID PRN 7 Days #14 tab 12/24/19 Surgical History: Surgical History (Last Reviewed 12/24/19 @ 09:33 by Gerda Sanchez) History of wisdom tooth extraction (Resolved) K08.409 History of arthroscopy of left knee (Resolved) Z98.890 Status post hammer toe correction (Resolved) Z98.890, Z87.39 History of nasal polypectomy (Resolved) Z98.890, Z87.09 History of umbilical hernia repair (Resolved) Z98.890, Z87.19 Right foot operation after an accident (Resolved) History of back surgery Z98.890 07/06/2018, microdiscectomy, L2-L3 right. Surgical History: herniorrhaphy, - - Hammertoe, please see above Psychiatric History: No pertinent psych hx Smoking Status: Current every day smoker Tobacco Use: Cigarettes Alcohol: None Drugs: None - *Family History Maternal Family History: Family History (Last Reviewed 12/24/19 @ 09:33 by Gerda Sanchez) Father Lung cancer Uncle Cancer Grandfather Myocardial infarction Grandmother Myocardial infarction Mother Myocardial infarction, Onset Age: 90 Review of Systems Constitutional: Denies: Chills, Fever, Weight Change HEENT: Denies: Head Aches, Sinus Congestion, Sinus Drainage Cardiovascular: Denies: Chest Pain, Palpitations Respiratory: Denies: Cough, Shortness of breath at rest, Sputum production Gastrointestinal: Denies: Abdominal Pain, Nausea, Vomiting Genitourinary: Reports: Dysuria, Hematuria Musculoskeletal: Denies: Joint Pain, Joint Tenderness Skin: Denies: Rash, Wounds Neurological: Denies: Numbness, Tingling, Focal weakness Psychiatric: Denies: Anxiety, Depression, Homicidal Ideations, Suicidal Ideations Hematologic/ Lymphatic: Denies: Easy Bruising, Easy Bleeding Physical Exam - Physical Exam Vital Signs Temp 98.3 F 12/25/19 11:39 Pulse 69 12/25/19 11:39 Resp 16 12/25/19 11:39 BP 116/78 12/25/19 11:39 Pulse Ox 92 12/25/19 11:39 Intake & Output 12/23/19 12/24/19 12/25/19 23:59 23:59 23:59 Intake Total 200 / 320 2870 / 2870 Output Total 1350 / 1350 Balance 200 / 220 1520 / 1520 Weight: 90.3 kg 90.3 kg Intake: Oral 1870 / 1870 Intake, IV Amount 200 / 200 1000 / 1000 0.9% Normal Saline 1,000 ML @ 1000 / 1000 150 mls/hr IV .Q6H40M [facility] Rx#: [id number] Cipro 400 mg In 200 ml @ 200 200 / 200 mls/hr IV X1 ONE Rx#:[id number] Output: Urine 1350 / 1350 General: Alert, Oriented x3 HEENT: Atraumatic Oral: Moist Mucosa Lungs: Normal air movement Cardiovascular: Regular rate, Regular Rhythm Abdomen: Soft, Obese Rectal: Exam deferred Microbiology Past 72 Hours 12/24/19 20:20 Urine Culture - Preliminary Urine, Clean Catch Presumptive E. coli Laboratory Tests Past 24 Hrs 12/24/19 12/24/19 12/24/19 20:20 20:45 20:45 WBC 9.2 RBC 4.20 L Hgb 13.8 Hct 42.1 MCV 100.2 H MCH 32.9 H MCHC 32.8 RDW Std Deviation 52.9 H RDW Coeff of Marcelle 14.2 Plt Count 243 MPV 8.8 Immature Gran % (Auto) 0.400 Neut % (Auto) 64.0 Lymph % (Auto) 24.3 [place] % (Auto) 9.0 Eos % (Auto) 2.0 Baso % (Auto) 0.3 Absolute Neuts (auto) 5.9 Absolute Lymphs (auto) 2.24 Nucleated RBC % 0 PT 22.0 H INR 2.0 Sodium Potassium Chloride Carbon Dioxide Anion Gap BUN Creatinine Estim Creat Clear Calc Est GFR (MDRD) Af Amer Est GFR (MDRD) Non-Af BUN/Creatinine Ratio Glucose Lactic Acid Calcium Urine Color Yellow Urine Clarity Cloudy Urine pH 6.0 Ur Specific [place] 1.015 Urine Protein 100 H Urine Glucose (UA) Normal Urine Ketones Negative Urine Occult Blood 150 H Urine Nitrite Positive H Urine Bilirubin 1 H Urine Urobilinogen 4 H Ur Leukocyte Esterase 500 H Urine RBC 5-10 SEEN Urine WBC >100 SEEN Ur Squamous Epith Cells 0 SEEN Urine Bacteria 1+ Urine Mucus 0 SEEN 12/24/19 12/24/19 12/25/19 20:45 20:45 05:28 WBC 9.1 RBC 3.79 L Hgb 12.5 L Hct 37.9 L MCV 100.0 H MCH 33.0 H MCHC 33.0 RDW Std Deviation 52.5 H RDW Coeff of Marcelle 14.4 Plt Count 207 MPV 8.8 Immature Gran % (Auto) 0.400 Neut % (Auto) 65.2 Lymph % (Auto) 24.0 [place] % (Auto) 8.6 Eos % (Auto) 1.5 Baso % (Auto) 0.3 Absolute Neuts (auto) 6.0 Absolute Lymphs (auto) 2.19 Nucleated RBC % 0 PT INR Sodium 137 Potassium 3.6 Chloride 103 Carbon Dioxide 27.0 Anion Gap 7 BUN 17 Creatinine 0.96 Estim Creat Clear Calc 77.35 Est GFR (MDRD) Af Amer 99 Est GFR (MDRD) Non-Af 82 BUN/Creatinine Ratio 17.6 Glucose 94 Lactic Acid 1.1 Calcium 9.0 Urine Color Urine Clarity Urine pH Ur Specific [place] Urine Protein Urine Glucose (UA) Urine Ketones Urine Occult Blood Urine Nitrite Urine Bilirubin Urine Urobilinogen Ur Leukocyte Esterase Urine RBC Urine WBC Ur Squamous Epith Cells Urine Bacteria Urine Mucus 12/25/19 12/25/19 05:28 05:28 WBC RBC Hgb Hct MCV MCH MCHC RDW Std Deviation RDW Coeff of Marcelle Plt Count MPV Immature Gran % (Auto) Neut % (Auto) Lymph % (Auto) [place] % (Auto) Eos % (Auto) Baso % (Auto) Absolute Neuts (auto) Absolute Lymphs (auto) Nucleated RBC % PT 22.5 H INR 2.0 Sodium 138 Potassium 3.3 L Chloride 106 Carbon Dioxide 24.0 Anion Gap 8 BUN 15 Creatinine 0.83 Estim Creat Clear Calc 86.73 Est GFR (MDRD) Af Amer 118 Est GFR (MDRD) Non-Af 97 BUN/Creatinine Ratio 18.0 Glucose 108 H Lactic Acid Calcium 8.3 L Urine Color Urine Clarity Urine pH Ur Specific [place] Urine Protein Urine Glucose (UA) Urine Ketones Urine Occult Blood Urine Nitrite Urine Bilirubin Urine Urobilinogen Ur Leukocyte Esterase Urine RBC Urine WBC Ur Squamous Epith Cells Urine Bacteria Urine Mucus Assessment/Plan All Active Problems (Last Reviewed 12/24/19 @ 09:33 by Gerda Sanchez) Gross hematuria (Acute) History of wisdom tooth extraction (Resolved) History of arthroscopy of left knee (Resolved) Status post hammer toe correction (Resolved) History of nasal polypectomy (Resolved) History of umbilical hernia repair (Resolved) Edema (Acute) Aortic regurgitation (Acute) Aortic stenosis (Acute) Right foot operation after an accident (Resolved) Deep vein blood clot of left lower extremity (Acute) Deep vein thrombosis (DVT) (Resolved) Urinary retention (Acute) Chest pain (Resolved) dyspnea (Acute) Acute right hip pain (Resolved) Atypical chest pain (Resolved) Chronic bronchitis (Resolved) Constipation (Resolved) Hand, foot and mouth disease (Resolved) PND (post-nasal drip) (Resolved) Sacroiliitis (Resolved) 69-year-old male with multiple medical problems he is on Coumadin history of recurrent UTIs BPH obstruction recent gross hematuria. Continue with IV antibiotics until cultures come back we can then switch him to oral antibiotics and discharge with oral antibiotics I will not do a cystoscopy at this point because of the active infection will hold off but will we will do a CT scan of the abdomen pelvis with IV contrast to further evaluate the kidneys ureter and bladder and I have my office and arrange for follow-up later this week for an outpatient cystoscopy once he is on adequate antibiotics. Please call me with Questions
--- NOTE | 2019-12-25 12:19 | CT_ITS ---
STUDY: CT ABDOMEN AND PELVIS WITH AND WITHOUT CONTRAST REASON FOR EXAM: Male, 69 years old. GROSS HEMATURIA/DYSURIA/LOW PELVIC PAIN. Recent UTI and quot; -- s. Hx of asthma, COPD and HTN. Pt premedicated for iodine allergy-did fine with contrast injection. Delays of 5 min and 12 min obtained through bladder. RADIATION DOSAGE (If Supplied By Facility): CTDIvol = ( 27.01 ) mGy, DLP = ( 4243.62 ) mGycm TECHNIQUE: Transaxial images were obtained from the dome of the diaphragm to the symphysis pubis without oral contrast. 100ml Isovue 300 was administered. Sagittal and coronal images were reconstructed. Individualized dose optimization techniques were used for this CT. COMPARISON: July 05, 2018. FINDINGS: The visualized lung bases are unremarkable. The visualized portions of the heart are within normal limits. Normal liver. The gallbladder is contracted. Normal spleen. Normal pancreas. Normal bilateral adrenal glands. Normal right kidney. Normal left kidney. No stones or hydronephrosis. No abnormal enhancement. Normal visualized stomach. Normal small intestine. Normal colon. There is abundant stool. The appendix is visualized and appears normal. There is diffuse atherosclerotic calcification of the abdominal aorta, without a demonstrated aneurysm. Normal inferior vena cava. Normal retroperitoneum. There is wall thickening of the urinary bladder. There is enlargement of the prostate gland. There is 4.2 cm low-density region of the right side of the prostate gland with necrotic mass versus urethral diverticulum. There is no free fluid in the abdomen or pelvis. Normal abdominal wall. Arthritic change of the spine and sacroiliac joints and hips. CT/CT Abd/Pelvis W/WO Contrast IMPRESSION: No stones or hydronephrosis. Bladder wall thickening. Enlarged prostate gland with necrotic/cystic mass versus urethral diverticulum. Electronically Signed: Rashid Lehman MD at 14:54 EDT , Service support ,
[2019-12-25] MEDS: DiphenhydrAMINE 50 MG/ML Syringe 25 MG IV (13:09)
[2019-12-25] MEDS: Hydrocortisone Sod Succinate 100 MG/2 ML Vial 200 MG IV (13:09)
--- NOTE | 2019-12-25 13:16 | NURSING ---
pt pre medicated for ct scan. notified ct scan that meds were given
--- NOTE | 2019-12-25 15:10 | PN_ITS ---
<Flip Horne - Last Filed: 12/25/19 15:10> Patient Problems: Active and Suspected Problems (Last Reviewed 12/25/19 @ 12:[address] Matthew Arechiga MD) Gross hematuria (Acute) Reason for Visit: UTI, recurrent Subjective: no further chills, ongoing dysuria, blood in urine, rectal pain, deep perineal discomfort. No nausea/vomiting,diarrhea, no SOB, cough. Vitals/I&O's: Vital Signs Temp Pulse Resp BP Pulse Ox 98 F 62 16 118/52 L 96 12/25/19 14:44 12/25/19 14:44 12/25/19 14:44 12/25/19 14:44 12/25/19 14:44 Oxygen Delivery Method Room Air Weight: 199 lb 1.239 oz Body Mass Index (BMI) 28.5 Intake and Output for Last 24 Hours 12/23/19 12/24/19 12/25/19 23:59 23:59 23:59 Intake Total 200 / 320 2870 / 2870 Output Total 1350 / 1350 Balance 200 / 220 1520 / 1520 General: Alert, Oriented x3, Cooperative HEENT: Atraumatic, PERRLA, EOMI, Normocephalic Neck: Supple, No JVD, Negative Carotid Bruits Lungs: Clear to auscultation, Normal air movement Cardiovascular: Regular rate, No murmurs Abdomen: Bowel Sounds Present, Soft, Non Tender Extremities: No edema, Capillary Refill Less than 3 Seconds Skin: No rashes, No breakdown Musculoskeletal: No Tenderness to Palpation of Joints or Extremities Neurological: Cranial nerves II-XII grossly intact Psych/Mental Status: Normal Affect, Appropriate, Alert and oriented to time, place, person, mood and affect Microbiology Past 72 Hours 12/24/19 20:20 Urine, Clean Catch Urine Culture - Preliminary Presumptive E. coli Laboratory Results 12/24/19 20:20: Urine Color Yellow, Urine Clarity Cloudy, Urine pH 6.0, Ur Specific [place] 1.015, Urine Protein 100 H, Urine Glucose (UA) Normal, Urine Ketones Negative, Urine Occult Blood 150 H, Urine Nitrite Positive H, Urine Bilirubin 1 H, Urine Urobilinogen 4 H, Ur Leukocyte Esterase 500 H, Urine RBC 5- 10 SEEN, Urine WBC >100 SEEN, Ur Squamous Epith Cells 0 SEEN, Urine Bacteria 1+, Urine Mucus 0 SEEN 12/24/19 20:45: WBC 9.2, RBC 4.20 L, Hgb 13.8, Hct 42.1, MCV 100.2 H, MCH 32.9 H , MCHC 32.8, RDW Std Deviation 52.9 H, RDW Coeff of Marcelle 14.2, Plt Count 243, MPV 8.8, Immature Gran % (Auto) 0.400, Neut % (Auto) 64.0, Lymph % (Auto) 24.3, [place] % (Auto) 9.0, Eos % (Auto) 2.0, Baso % (Auto) 0.3, Absolute Neuts (auto) 5.9, Absolute Lymphs (auto) 2.24, Nucleated RBC % 0 12/24/19 20:45: PT 22.0 H, INR 2.0 12/24/19 20:45: Sodium 137, Potassium 3.6, Chloride 103, Carbon Dioxide 27.0, Anion Gap 7, BUN 17, Creatinine 0.96, Estim Creat Clear Calc 77.35, Est GFR (MDRD) Af Amer 99, Est GFR (MDRD) Non-Af 82, BUN/Creatinine Ratio 17.6, Glucose 94, Calcium 9.0 12/24/19 20:45: Lactic Acid 1.1 12/25/19 05:28: WBC 9.1, RBC 3.79 L, Hgb 12.5 L, Hct 37.9 L, MCV 100.0 H, MCH 33.0 H, MCHC 33.0, RDW Std Deviation 52.5 H, RDW Coeff of Marcelle 14.4, Plt Count 207, MPV 8.8, Immature Gran % (Auto) 0.400, Neut % (Auto) 65.2, Lymph % (Auto) 24.0, [place] % (Auto) 8.6, Eos % (Auto) 1.5, Baso % (Auto) 0.3, Absolute Neuts (auto) 6.0, Absolute Lymphs (auto) 2.19, Nucleated RBC % 0 12/25/19 05:28: PT 22.5 H, INR 2.0 12/25/19 05:28: Sodium 138, Potassium 3.3 L, Chloride 106, Carbon Dioxide 24.0, Anion Gap 8, BUN 15, Creatinine 0.83, Estim Creat Clear Calc 86.73, Est GFR (MDRD) Af Amer 118, Est GFR (MDRD) Non-Af 97, BUN/Creatinine Ratio 18.0, Glucose 108 H, Calcium 8.3 L Current Medications Acetaminophen (Tylenol) 650 mg PO Q6H PRN PRN PRN Reason: Pain Score 1-10/Temp > 100.7 F Last Admin: 12/25/19 08:25 Dose: 650 mg Documented by: Albuterol Sulfate (Ventolin Aerosols) 2.5 mg INHALATION Q4H PRN PRN PRN Reason: shortness of breath/wheezing Last Admin: 12/25/19 04:29 Dose: 2.5 mg Documented by: Albuterol/Ipratropium (Duoneb) 3 ml INHALATION Q6HWA.RT [facility] Last Admin: 12/25/19 14:09 Dose: Not Given Documented by: Atorvastatin Calcium (Lipitor) 40 mg PO DAILY@2200 [facility] Benzonatate (Tessalon Perle) 200 mg PO QHS PRN PRN Reason: cough [facility] Last Admin: 12/25/19 08:21 Dose: 500 mg Documented by: Ciprofloxacin HCl (Cipro) 500 mg PO BID [facility] Last Admin: 12/25/19 08:26 Dose: 500 mg Documented by: Gabapentin (Neurontin) 300 mg PO BID [facility] Last Admin: 12/25/19 08:21 Dose: 300 mg Documented by: Hydrochlorothiazide (Hctz) 25 mg PO DAILY [facility] Last Admin: 12/25/19 08:21 Dose: 25 mg Documented by: Nutritional Formula (Lactose Free) (Ensure Enlive) 120 ml PO 4X/DAY [facility] Last Admin: 12/25/19 13:14 Dose: 120 ml Documented by: Phenazopyridine HCl (Azo Standard) 95 mg PO TID PRN PRN PRN Reason: urinary pain Last Admin: 12/25/19 05:04 Dose: 95 mg Documented by: Sodium Chloride () 10 - 40 ml IV UD PRN PRN Reason: SALINE FLUSH Last Admin: 12/25/19 13:09 Dose: 10 ml Documented by: Tamsulosin HCl (Flomax) 0.4 mg PO DAILY@1730 [facility] Warfarin Sodium (Coumadin (Pbkc)) 4 mg PO SuTuThFr@1700 [facility] Warfarin Sodium (Coumadin (Pbkc)) 6 mg PO MoWeSa@1700 [facility] STROKE Vital Signs/Narrative: Vital Signs Temp Pulse Resp BP Pulse Ox 12/25/19 14:44 98 F 62 16 118/52 L 96 12/25/19 11:39 98.3 F 69 16 116/78 92 Medical Necessity - Tobacco Use Smoking Status: Current every day smoker Tobacco Use: Cigarettes Assessment/Plan All Active Problems (Last Reviewed 12/25/19 @ 12:[address] Matthew Arechiga MD) Gross hematuria (Acute) History of wisdom tooth extraction (Resolved) History of arthroscopy of left knee (Resolved) Status post hammer toe correction (Resolved) History of nasal polypectomy (Resolved) History of umbilical hernia repair (Resolved) Edema (Acute) Aortic regurgitation (Acute) Aortic stenosis (Acute) Right foot operation after an accident (Resolved) Deep vein blood clot of left lower extremity (Acute) Deep vein thrombosis (DVT) (Resolved) Urinary retention (Acute) Chest pain (Resolved) dyspnea (Acute) Acute right hip pain (Resolved) Atypical chest pain (Resolved) Chronic bronchitis (Resolved) Constipation (Resolved) Hand, foot and mouth disease (Resolved) PND (post-nasal drip) (Resolved) Sacroiliitis (Resolved) 1. Recurrent UTI, suspect prostatitis - continue cipro, change to IV. Current showing presumptive E coli. Last cx with E coli R to Amp, I to zosyn. Pt to have cysto January [address] Arechiga who has come to eval the patient. Blood cx pending. CT abd w and w/o shows no stones or hydronephrosis. There is bladder wall thickening, enlarged prostate with necrotic / cystic mass vs urethral diverticulum. No fever or leukocytosis while here. 2. Hx BPH - flomax 3. 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 INR 2.0. 4. HTN - stable 5. COPD - nicotine abuse. no exacerbation. prn aerosols. 6. HLD - statin DVT ppx: INR 2.0 This patient was seen by Flip Horne PA-C under the supervision of Dr. Elizabeth. <Hallie Elizabeth - Last Filed: 12/25/19 15:56> Vitals/I&O's: Vital Signs Temp Pulse Resp BP Pulse Ox 98 F 62 16 118/52 L 96 12/25/19 14:44 12/25/19 14:44 12/25/19 14:44 12/25/19 14:44 12/25/19 14:44 Oxygen Delivery Method Room Air Weight: 90.3 kg Body Mass Index (BMI) 28.5 Intake and Output for Last 24 Hours 12/23/19 12/24/19 12/25/19 23:59 23:59 23:59 Intake Total 200 / 320 2870 / 2870 Output Total 1350 / 1350 Balance 200 / 220 1520 / 1520 Microbiology Past 72 Hours 12/24/19 20:20 Urine, Clean Catch Urine Culture - Preliminary Presumptive E. coli Laboratory Results 12/24/19 20:20: Urine Color Yellow, Urine Clarity Cloudy, Urine pH 6.0, Ur Specific [place] 1.015, Urine Protein 100 H, Urine Glucose (UA) Normal, Urine Ketones Negative, Urine Occult Blood 150 H, Urine Nitrite Positive H, Urine Bilirubin 1 H, Urine Urobilinogen 4 H, Ur Leukocyte Esterase 500 H, Urine RBC 5- 10 SEEN, Urine WBC >100 SEEN, Ur Squamous Epith Cells 0 SEEN, Urine Bacteria 1+, Urine Mucus 0 SEEN 12/24/19 20:45: WBC 9.2, RBC 4.20 L, Hgb 13.8, Hct 42.1, MCV 100.2 H, MCH 32.9 H , MCHC 32.8, RDW Std Deviation 52.9 H, RDW Coeff of Marcelle 14.2, Plt Count 243, MPV 8.8, Immature Gran % (Auto) 0.400, Neut % (Auto) 64.0, Lymph % (Auto) 24.3, [place] % (Auto) 9.0, Eos % (Auto) 2.0, Baso % (Auto) 0.3, Absolute Neuts (auto) 5.9, Absolute Lymphs (auto) 2.24, Nucleated RBC % 0 12/24/19 20:45: PT 22.0 H, INR 2.0 12/24/19 20:45: Sodium 137, Potassium 3.6, Chloride 103, Carbon Dioxide 27.0, Anion Gap 7, BUN 17, Creatinine 0.96, Estim Creat Clear Calc 77.35, Est GFR (MDRD) Af Amer 99, Est GFR (MDRD) Non-Af 82, BUN/Creatinine Ratio 17.6, Glucose 94, Calcium 9.0 12/24/19 20:45: Lactic Acid 1.1 12/25/19 05:28: WBC 9.1, RBC 3.79 L, Hgb 12.5 L, Hct 37.9 L, MCV 100.0 H, MCH 33.0 H, MCHC 33.0, RDW Std Deviation 52.5 H, RDW Coeff of Marcelle 14.4, Plt Count 207, MPV 8.8, Immature Gran % (Auto) 0.400, Neut % (Auto) 65.2, Lymph % (Auto) 24.0, [place] % (Auto) 8.6, Eos % (Auto) 1.5, Baso % (Auto) 0.3, Absolute Neuts (auto) 6.0, Absolute Lymphs (auto) 2.19, Nucleated RBC % 0 12/25/19 05:28: PT 22.5 H, INR 2.0 12/25/19 05:28: Sodium 138, Potassium 3.3 L, Chloride 106, Carbon Dioxide 24.0, Anion Gap 8, BUN 15, Creatinine 0.83, Estim Creat Clear Calc 86.73, Est GFR (MDRD) Af Amer 118, Est GFR (MDRD) Non-Af 97, BUN/Creatinine Ratio 18.0, Glucose 108 H, Calcium 8.3 L Current Medications Acetaminophen (Tylenol) 650 mg PO Q6H PRN PRN PRN Reason: Pain Score 1-10/Temp > 100.7 F Last Admin: 12/25/19 08:25 Dose: 650 mg Documented by: Albuterol Sulfate (Ventolin Aerosols) 2.5 mg INHALATION Q4H PRN PRN PRN Reason: shortness of breath/wheezing Last Admin: 12/25/19 04:29 Dose: 2.5 mg Documented by: Albuterol/Ipratropium (Duoneb) 3 ml INHALATION Q6HWA.RT [facility] Last Admin: 12/25/19 14:09 Dose: Not Given Documented by: Atorvastatin Calcium (Lipitor) 40 mg PO DAILY@2200 [facility] Benzonatate (Tessalon Perle) 200 mg PO QHS PRN PRN Reason: cough Calcium Carbonate (Tums) 500 mg PO DAILYCM [facility] Last Admin: 12/25/19 08:21 Dose: 500 mg Documented by: Gabapentin (Neurontin) 300 mg PO BID [facility] Last Admin: 12/25/19 08:21 Dose: 300 mg Documented by: Hydrochlorothiazide (Hctz) 25 mg PO DAILY [facility] Last Admin: 12/25/19 08:21 Dose: 25 mg Documented by: Ciprofloxacin (Cipro) 400 mg in 200 mls @ 200 mls/hr IV Q12 [facility] Nutritional Formula (Lactose Free) (Ensure Enlive) 120 ml PO 4X/DAY [facility] Last Admin: 12/25/19 13:14 Dose: 120 ml Documented by: Phenazopyridine HCl (Azo Standard) 95 mg PO TID PRN PRN PRN Reason: urinary pain Last Admin: 12/25/19 05:04 Dose: 95 mg Documented by: Sodium Chloride () 10 - 40 ml IV UD PRN PRN Reason: SALINE FLUSH Last Admin: 12/25/19 13:09 Dose: 10 ml Documented by: Tamsulosin HCl (Flomax) 0.4 mg PO DAILY@1730 [facility] Warfarin Sodium (Coumadin (Pbkc)) 4 mg PO SuTuThFr@1700 [facility] Warfarin Sodium (Coumadin (Pbkc)) 6 mg PO MoWeSa@1700 [facility] STROKE Vital Signs/Narrative: Vital Signs Temp Pulse Resp BP Pulse Ox 12/25/19 14:44 98 F 62 16 118/52 L 96 Assessment/Plan This patient was seen in conjunction with TYESHA Little. I have independently interviewed and examined the patient and reviewed pertinent historical, laboratory, and other data. Please refer to TYESHA Little note for his patient's presentation, findings, and recommendations. I have reviewed and his note and concur with his documentation 9-year-old male with past medical history of hypertension, history of DVT who comes in with urinary symptoms suggestive of UTI. This is his third UTI this year. Previous urine cultures were positive for E. coli. Patient has been started on oral Cipro. Urology consulted. Physical Exam: Gen: Comfortable, not pale, not jaundiced CVS:HS I +II, regular, no murmurs RESP: CTA GI: BS present and normal, soft, nontender, no palpable organs EXT:No edema ASSESSMENT: 1. Recurrent E. coli UTI 2. 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 History of DVT 4. BPH 5. COPD, not in acute exacerbation Plan: Continue on IV Cipro Appreciate urology consult; will follow-up on recommendations Follow-up on urine culture Inpatient E&M: [id number] Subs Hosp L2
--- NOTE | 2019-12-25 15:24 | CHAPLAIN ---
Type of Pastoral Visit _x__ Initial Visit ___ Follow-up Visit ___ On-call Visit ___ General Patient Visit ___ Spiritual Assessment ___ Family Conference ___ Bereavement ___ Rapid Response ___ Code Blue ___ Other (describe below) Pastoral Care Referral From _x__ Patient ___ Family ___ Nurse ___ Physician ___ Shuttle Threader ___ Studio Operator ___ Other (describe below) Sacrament/Intervention _x__ Active listening ___ Anointing ___ Gnosticism ___ Bereavement ___ Communion _x__ Lawanda exploration ___ _x__ Life review _x__ Prayer ___ Reconciliation ___ Sacrament of Sick _x__ Supportive presence ___ Wedding ___ Other (describe below) Pastoral Comments
[2019-12-25] MEDS: Tamsulosin HCl 0.4 MG Capsule PO (16:01)
[2019-12-25] MEDS: Ciprofloxacin 400 MG/200 ML BAG 200 MG IV (21:41)
[2019-12-25] MEDS: Atorvastatin Calcium 40 MG Tablet PO (21:44)
[2019-12-25] MEDS: Benzonatate 100 MG Capsule 200 MG PO (21:54)
[2019-12-26] VITALS (9 sets, daily range): BP systolic 116–123; BP diastolic 45–88; PULSE 67–94; RESP 16–22; TEMP 36.6–36.8; O2SAT 93–95
[2019-12-26] MEDS: Ipratropium/Albuterol Sulfate 3 ML AMPUL.NEB INHALATION ×4 (00:47→18:55)
[2019-12-26] MEDS: 0.9% Saline Lock 10 ML Syringe IV ×2 (02:12→21:50)
[2019-12-26 06:01] LABS: Absolute Lymphocyte Count 1.37 X10^3/uL (0.83-4.51); Absolute Neutrophil Count 9.6 X10^3/uL (2.0-7.7); Basophil# 0.01 X10^3/uL; Basophil% 0.1 % (0-1); Eosinophil# 0.01 X10^3/uL; Eosinophils% 0.1 % (0-5); Hematocrit 37.9 % (40-54); Hemoglobin 12.5 g/dL (13.0-16.5); Lymphocyte # 1.37 X10^3/ul (4.0); Lymphocyte % 11.6 % (19-41); Mean Corpuscular Hgb 32.7 pg (27.0-32.0); Mean Corpuscular Volume 99.2 fL (80-94); Mean Platelet Vol. 8.9 fl (6.2-12.0); Monocyte# 0.75 X10^3/uL; Monocyte% 6.4 % (0-10); NRBC Flagged by Analyzer 0 % (0-5); Neutrophil % 81.5 % (47-70); Platelet Count 218 K/mm3 (150-450); RBC Distribution Width CV 14.4 % (11.6-14.6); RBC Distribution Width SD 52.4 fl (35.1-43.9); Red Blood Count 3.82 M/mm3 (4.6-6.2); White Blood Count 11.8 K/mm3 (4.4-11.0)
[2019-12-26 06:18] LABS: International Normalized Ratio 1.9
[2019-12-26 06:26] LABS: Anion Gap 7 (5-15); BUN 17 mg/dL (7-18); BUN/Creat Ratio 17.9 RATIO (10-20); Chloride 106 mmol/L (98-107); Creatinine, Serum 0.95 mg/dL (0.70-1.30); EST Glomerular Filtration Rate 83 mL/min (>60); Est Glom Filt Rate - Afr Amer 101 mL/min (>60); Estimated Creatinine Clearance 75.77 ml/min; Glucose 124 mg/dL (74-106); Sodium Level 137 mmol/L (136-145)
[2019-12-26] MEDS: Gabapentin 300 MG Capsule PO ×2 (09:06→21:50)
[2019-12-26] MEDS: hydroCHLOROthiazide 25 MG Tablet PO (09:06)
[2019-12-26] MEDS: Calcium Carbonate 500 MG Tablet PO (09:06)
[2019-12-26] MEDS: Ciprofloxacin 400 MG/200 ML BAG 200 MG IV ×2 (09:12→21:49)
[2019-12-26] MEDS: Phenazopyridine 95 MG Tablet PO ×2 (09:12→20:35)
--- NOTE | 2019-12-26 11:10 | CASEMGMT ---
TOREY VICKERS Face to Face with patient for initial transition planning/care coordination assessment. RN CM introduced self and role at [facility]. Patient sitting on edge of bed, alert and oriented. Patient willing to participate in assessment and is able to answer all questions appropriately. Care providers, pharmacy, and demographics verified. Patient wishes to discharge home, denies need for home health at this time. Patient states he has no further needs or concerns at this time. CM to follow for discharge planning needs that may arise. PCP: Randy Specialists: Marcia, commissioner of officials; Hawk, urologist; Jina, card hand [facility]: [facility] Insurance: [facility], [employer] Prescription Benefit: yes Living Will/HPOA: none LNOK: , son Living Arrangements: Patient lives with and son in 3 story home with bed and bath on first level. Patient states he is independent at home. Transportation: self/family DME/HHC: Patient states that he has raised toilet, cane, walker, grab bars, and cpap at home. Patient denies previous HHC. Disposition Plan: Patient to discharge home with family support and follow-up plans in place. Kerry COBB, RN, CM
--- NOTE | 2019-12-26 13:47 | PN_ITS ---
<Flip Horne - Last Filed: 12/26/19 13:47> Patient Problems: Active and Suspected Problems (Last Reviewed 12/25/19 @ 12:[address] Matthew Arecihga MD) Gross hematuria (Acute) Reason for Visit: dysuria, hematuria Subjective: Pt tearful, frustrated about current medical problem, and potential mass on CT. Pt agreeable to o/p surgery on Sat. No further chills. Ongoing dysuria and rectal pain. No nausea/vomiting/diarrhea. No SOB. paroxysmal coughing bouts, non productive. Vitals/I&O's: Vital Signs Temp Pulse Resp BP Pulse Ox 98.2 F 72 16 116/45 L 94 12/26/19 08:15 12/26/19 08:15 12/26/19 08:15 12/26/19 08:15 12/26/19 08:15 Oxygen Delivery Method Room Air Weight: 199 lb 1.239 oz Body Mass Index (BMI) 28.5 Intake and Output for Last 24 Hours 12/24/19 12/25/19 12/26/19 23:59 23:59 23:59 Intake Total 200 / 320 3670 / 4070 1715.25 / 1715.25 Output Total 1500 / 1500 Balance 200 / 220 2170 / 2570 1715.25 / 1715.25 General: Alert, Oriented x3, Cooperative HEENT: Atraumatic, PERRLA, EOMI, Normocephalic Neck: Supple, No JVD, Negative Carotid Bruits Lungs: Clear to auscultation, Normal air movement Cardiovascular: Regular rate, No murmurs Abdomen: Bowel Sounds Present, Soft, Non Tender Extremities: No edema, Capillary Refill Less than 3 Seconds Skin: No rashes, No breakdown Musculoskeletal: No Tenderness to Palpation of Joints or Extremities Neurological: Cranial nerves II-XII grossly intact Psych/Mental Status: Anxious, - - tearful, Alert and oriented to time, place, person, mood and affect Microbiology Past 72 Hours 12/24/19 20:20 Urine, Clean Catch Urine Culture - Final Presumptive E. coli Laboratory Results 12/26/19 05:48: PT 21.0 H, INR 1.9 12/26/19 05:48: WBC 11.8 H, RBC 3.82 L, Hgb 12.5 L, Hct 37.9 L, MCV 99.2 H, MCH 32.7 H, MCHC 33.0, RDW Std Deviation 52.4 H, RDW Coeff of Marcelle 14.4, Plt Count 218, MPV 8.9, Immature Gran % (Auto) 0.300, Neut % (Auto) 81.5 H, Lymph % (Auto) 11.6 L, Boyle % (Auto) 6.4, Eos % (Auto) 0.1, Baso % (Auto) 0.1, Absolute Neuts (auto) 9.6 H, Absolute Lymphs (auto) 1.37, Nucleated RBC % 0 12/26/19 05:48: Sodium 137, Potassium 4.0, Chloride 106, Carbon Dioxide 24.0, Anion Gap 7, BUN 17, Creatinine 0.95, Estim Creat Clear Calc 75.77, Est GFR (MDRD) Af Amer 101, Est GFR (MDRD) Non-Af 83, BUN/Creatinine Ratio 17.9, Glucose 124 H, Calcium 9.0 Current Medications Acetaminophen (Tylenol) 650 mg PO Q6H PRN PRN PRN Reason: Pain Score 1-10/Temp > 100.7 F Last Admin: 12/25/19 16:01 Dose: 650 mg Documented by: Albuterol Sulfate (Ventolin Aerosols) 2.5 mg INHALATION Q4H PRN PRN PRN Reason: shortness of breath/wheezing Last Admin: 12/25/19 04:29 Dose: 2.5 mg Documented by: Albuterol/Ipratropium (Duoneb) 3 ml INHALATION Q6HWA.RT [facility] [place] Last Admin: 12/26/19 13:21 Dose: 3 ml Documented by: Atorvastatin Calcium (Lipitor) 40 mg PO DAILY@2200 [facility] [place] Last Admin: 12/25/19 21:44 Dose: 40 mg Documented by: Benzonatate (Tessalon Perle) 200 mg PO QHS PRN PRN Reason: cough Last Admin: 12/25/19 21:54 Dose: 200 mg Documented by: [facility]) [facility] Last Admin: 12/26/19 09:06 Dose: 500 mg Documented by: Gabapentin (Neurontin) 300 mg PO BID [facility] [place] Last Admin: 12/26/19 09:06 Dose: 300 mg Documented by: Hydrochlorothiazide (Hctz) 25 mg PO DAILY [facility] [place] Last Admin: 12/26/19 09:06 Dose: 25 mg Documented by: Ciprofloxacin (Cipro) 400 mg in 200 mls @ 200 mls/hr IV Q12 [facility] [place] Last Infusion: 12/26/19 10:15 Dose: Infused Documented by: Sodium Chloride () 250 mls @ 15 mls/hr IV .[id number] PRN PRN Reason: Saline Flush Last Infusion: 12/26/19 11:01 Dose: 0 mls/hr Documented by: Nutritional Formula (Lactose Free) (Ensure Enlive) 120 ml PO 4X/DAY [facility] [place] Last Admin: 12/26/19 09:11 Dose: 120 ml Documented by: Phenazopyridine HCl (Azo Standard) 95 mg PO TID PRN PRN PRN Reason: urinary pain Last Admin: 12/26/19 09:12 Dose: 95 mg Documented by: Sodium Chloride () 10 - 40 ml IV UD PRN PRN Reason: SALINE FLUSH Last Admin: 12/26/19 02:12 Dose: 10 ml Documented by: Tamsulosin HCl (Flomax) 0.4 mg PO DAILY@1730 [facility] [place] Last Admin: 12/25/19 16:01 Dose: 0.4 mg Documented by: Warfarin Sodium (Coumadin (Pbkc)) 4 mg PO SuTuThFr@1700 [facility] [place] Last Admin: 12/25/19 16:01 Dose: 4 mg Documented by: Warfarin Sodium (Coumadin (Pbkc)) 6 mg PO MoWeSa@1700 [facility] [place] Medical Necessity - Tobacco Use Smoking Status: Current every day smoker Tobacco Use: Cigarettes Assessment/Plan All Active Problems (Last Reviewed 12/25/19 @ 12:[address] Matthew Arechiga MD) Gross hematuria (Acute) History of wisdom tooth extraction (Resolved) History of arthroscopy of left knee (Resolved) Status post hammer toe correction (Resolved) History of nasal polypectomy (Resolved) History of umbilical hernia repair (Resolved) Edema (Acute) Aortic regurgitation (Acute) Aortic stenosis (Acute) Right foot operation after an accident (Resolved) Deep vein blood clot of left lower extremity (Acute) Deep vein thrombosis (DVT) (Resolved) Urinary retention (Acute) Chest pain (Resolved) dyspnea (Acute) Acute right hip pain (Resolved) Atypical chest pain (Resolved) Chronic bronchitis (Resolved) Constipation (Resolved) Hand, foot and mouth disease (Resolved) PND (post-nasal drip) (Resolved) Sacroiliitis (Resolved) 1. Recurrent UTI, prostatitis - continue IV cipro, plan for 28 day total course. Current showing presumptive E coli. Last cx with E coli R to Amp, I to zosyn. Blood cx pending. CT abd w and w/o shows no stones or hydronephrosis. There is bladder wall thickening, enlarged prostate with necrotic / cystic mass vs urethral diverticulum. No fever or leukocytosis while here. -Dr. Arechiga has evaluated the patient and plans to have cystoscopy Saturday as o/p. -Inc WBCs. , no fever. 2. Hx BPH - flomax 3. 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 INR 1.9. pt on cipro, will check again in AM prior to supplementing coumadin. 4. HTN - stable 5. COPD - nicotine abuse. no exacerbation. prn aerosols. pt instructed to continue incentive spirometer - has his own, also added PEP therapy. 6. HLD - statin DVT ppx: INR 1.9 DC planning: likely home tomorrow if improving on 1 month course of cipro. Pt to have o/p cysto with Dr. Arechiga Sat. This patient was seen by Flip Horne PA-C under the supervision of Dr. Elizabeth. <Hallie Elizabeth - Last Filed: 12/26/19 15:04> Vitals/I&O's: Vital Signs Temp Pulse Resp BP Pulse Ox 97.9 F 81 16 118/88 H 93 12/26/19 14:08 12/26/19 14:08 12/26/19 14:08 12/26/19 14:08 12/26/19 14:08 Oxygen Delivery Method Room Air Weight: 90.3 kg Body Mass Index (BMI) 28.5 Intake and Output for Last 24 Hours 12/24/19 12/25/19 12/26/19 23:59 23:59 23:59 Intake Total 200 / 320 3670 / 4070 1715.25 / 1715.25 Output Total 1500 / 1500 Balance 200 / 220 2170 / 2570 1715.25 / 1715.25 Microbiology Past 72 Hours 12/24/19 20:20 Urine, Clean Catch Urine Culture - Final Presumptive E. coli Laboratory Results 12/26/19 05:48: PT 21.0 H, INR 1.9 12/26/19 05:48: WBC 11.8 H, RBC 3.82 L, Hgb 12.5 L, Hct 37.9 L, MCV 99.2 H, MCH 32.7 H, MCHC 33.0, RDW Std Deviation 52.4 H, RDW Coeff of Marcelle 14.4, Plt Count 218, MPV 8.9, Immature Gran % (Auto) 0.300, Neut % (Auto) 81.5 H, Lymph % (Auto) 11.6 L, Boyle % (Auto) 6.4, Eos % (Auto) 0.1, Baso % (Auto) 0.1, Absolute Neuts (auto) 9.6 H, Absolute Lymphs (auto) 1.37, Nucleated RBC % 0 12/26/19 05:48: Sodium 137, Potassium 4.0, Chloride 106, Carbon Dioxide 24.0, Anion Gap 7, BUN 17, Creatinine 0.95, Estim Creat Clear Calc 75.77, Est GFR (MDRD) Af Amer 101, Est GFR (MDRD) Non-Af 83, BUN/Creatinine Ratio 17.9, Glucose 124 H, Calcium 9.0 Current Medications Acetaminophen (Tylenol) 650 mg PO Q6H PRN PRN PRN Reason: Pain Score 1-10/Temp > 100.7 F Last Admin: 12/25/19 16:01 Dose: 650 mg Documented by: Albuterol Sulfate (Ventolin Aerosols) 2.5 mg INHALATION Q4H PRN PRN PRN Reason: shortness of breath/wheezing Last Admin: 12/25/19 04:29 Dose: 2.5 mg Documented by: Albuterol/Ipratropium (Duoneb) 3 ml INHALATION Q6HWA.RT [facility] [place] Last Admin: 12/26/19 13:21 Dose: 3 ml Documented by: Atorvastatin Calcium (Lipitor) 40 mg PO DAILY@2200 [facility] [place] Last Admin: 12/25/19 21:44 Dose: 40 mg Documented by: Benzonatate (Tessalon Perle) 200 mg PO QHS PRN PRN Reason: cough Last Admin: 12/25/19 21:54 Dose: 200 mg Documented by: Calcium Carbonate (Tums) 500 mg PO DAILYCM [facility] [place] Last Admin: 12/26/19 09:06 Dose: 500 mg Documented by: Gabapentin (Neurontin) 300 mg PO BID [facility] [place] Last Admin: 12/26/19 09:06 Dose: 300 mg Documented by: Hydrochlorothiazide (Hctz) 25 mg PO DAILY [facility] [place] Last Admin: 12/26/19 09:06 Dose: 25 mg Documented by: Ciprofloxacin (Cipro) 400 mg in 200 mls @ 200 mls/hr IV Q12 [facility] [place] Last Infusion: 12/26/19 10:15 Dose: Infused Documented by: Sodium Chloride () 250 mls @ 15 mls/hr IV .[id number] PRN PRN Reason: Saline Flush Last Infusion: 12/26/19 11:01 Dose: 0 mls/hr Documented by: Nutritional Formula (Lactose Free) (Ensure Enlive) 120 ml PO 4X/DAY [facility] [place] Last Admin: 12/26/19 14:24 Dose: 120 ml Documented by: Phenazopyridine HCl (Azo Standard) 95 mg PO TID PRN PRN PRN Reason: urinary pain Last Admin: 12/26/19 09:12 Dose: 95 mg Documented by: Sodium Chloride () 10 - 40 ml IV UD PRN PRN Reason: SALINE FLUSH Last Admin: 12/26/19 02:12 Dose: 10 ml Documented by: Tamsulosin HCl (Flomax) 0.4 mg PO DAILY@1730 [facility] [place] Last Admin: 12/25/19 16:01 Dose: 0.4 mg Documented by: Warfarin Sodium (Coumadin (Pbkc)) 4 mg PO SuTuThFr@1700 [facility] [place] Last Admin: 12/25/19 16:01 Dose: 4 mg Documented by: Warfarin Sodium (Coumadin (Pbkc)) 6 mg PO MoWeSa@1700 [facility] [place] STROKE Vital Signs/Narrative: Vital Signs Temp Pulse Resp BP Pulse Ox 12/26/19 14:08 97.9 F 81 16 118/88 H 93 12/26/19 13:21 71 16 Assessment/Plan This patient was seen in conjunction with TYESHA Little. I have independently interviewed and examined the patient and reviewed pertinent historical, laboratory, and other data. Please refer to TYESHA Little note for his patient's presentation, findings, and recommendations. I have reviewed and his note and concur with his documentation Patient was seen and examined. Complains of dysuria, frequency. Denies any fever or chills. CT scan of the abdomen and pelvis was suggestive of necrotic mass in the right prostate Physical Exam: Gen: Comfortable, not pale, not jaundiced CVS:HS I +II, regular, no murmurs RESP: CTA GI: BS present and normal, soft, nontender, no palpable organs EXT:No edema ASSESSMENT: 1. Recurrent E. coli UTI 2. Prostatitis/suspected prostatic mass/necrosis 3. History of DVT 4. BPH 5. COPD, not in acute exacerbation Plan: Continue on IV Cipro Continue on Coumadin Possible DC in a.m. Inpatient E&M: 96312 Subs Hosp L2
[2019-12-26] MEDS: Senna/Docusate Sodium 1 Tablet PO (16:21)
[2019-12-26] MEDS: traMADol 50 MG Tablet PO ×2 (16:21→23:04)
[2019-12-26] MEDS: Tamsulosin HCl 0.4 MG Capsule PO (16:23)
--- NOTE | 2019-12-26 16:26 | NURSING ---
pt INR 1.9 prior to giving 6mg of coumadin this evening- 2.3 was entered in error on MAR
[2019-12-26] MEDS: Benzonatate 100 MG Capsule 200 MG PO (21:49)
[2019-12-26] MEDS: Atorvastatin Calcium 40 MG Tablet PO (21:50)
[2019-12-26] MEDS: Acetaminophen 325 MG Tablet 650 MG PO (21:52)
[2019-12-27 02:12] VITALS: RESP 18
[2019-12-27 03:35] VITALS: BP 120/52; PULSE 64; RESP 18; TEMP 36.4; O2SAT 95
[2019-12-27] MEDS: traMADol 50 MG Tablet PO (05:46)
[2019-12-27 07:05] LABS: Absolute Lymphocyte Count 2.19 X10^3/uL (0.83-4.51); Basophil# 0.03 X10^3/uL; Basophil% 0.4 % (0-1); Eosinophil# 0.12 X10^3/uL; Eosinophils% 1.5 % (0-5); Hematocrit 37.4 % (40-54); Lymphocyte # 2.19 X10^3/ul (4.0); Lymphocyte % 27.2 % (19-41); Mean Corp Hgb Conc 32.1 g/dL (32-36); Mean Corpuscular Hgb 32.7 pg (27.0-32.0); Mean Corpuscular Volume 101.9 fL (80-94); Mean Platelet Vol. 9.2 fl (6.2-12.0); Monocyte# 0.75 X10^3/uL; Monocyte% 9.3 % (0-10); NRBC Flagged by Analyzer 0 % (0-5); Neutrophil # 4.95 X10^3/uL (2.7-7.7); Neutrophil % 61.4 % (47-70); Platelet Count 239 K/mm3 (150-450); RBC Distribution Width CV 14.5 % (11.6-14.6); RBC Distribution Width SD 55.2 fl (35.1-43.9); Red Blood Count 3.67 M/mm3 (4.6-6.2); White Blood Count 8.1 K/mm3 (4.4-11.0)
[2019-12-27 07:11] VITALS: PULSE 70; RESP 16; O2SAT 93
[2019-12-27] MEDS: Ipratropium/Albuterol Sulfate 3 ML AMPUL.NEB INHALATION (07:11)
[2019-12-27 07:46] LABS: International Normalized Ratio 2.2; Prothrombin Time (Protime)PT. 23.6 SECONDS (11.7-14.9)
[2019-12-27 08:20] VITALS: BP 107/44; PULSE 75; RESP 20; TEMP 36.6; O2SAT 95
[2019-12-27] MEDS: Gabapentin 300 MG Capsule PO (08:33)
[2019-12-27] MEDS: Polyethylene Glycol 3350 17 GM PACKET PO (08:33)
[2019-12-27] MEDS: hydroCHLOROthiazide 25 MG Tablet PO (08:33)
[2019-12-27] MEDS: Calcium Carbonate 500 MG Tablet PO (08:34)
--- NOTE | 2019-12-27 09:02 | PCM.DC ---
- Discharge Diagnoses Current Active Problems: Current Active and Chronic Problems (Last Reviewed 12/25/19 @ 12:[address] Matthew Arechiga MD) Gross hematuria (Acute) You will use the following diet at home:: Cardiac Your food should be the consistency of: Regular Your liquids should be the consistency of: Regular/Thin Discharge Activity: Return to Normal Activity Additional Instructions: Call your doctor to have your INR checked in 2 days Allergies/Adverse Reactions: Allergies Iodinated Contrast Media [Iodinated Contrast Media - IV Dye] Allergy (Verified 12/24/19 20:09) Unknown per patient unsure of reaction had facet spinal block about 15 years ago and per patient his surgeon said to torey iv contrast as allergy. patient was premedicated with 13-hour prep with prednisone before CT of chest with IV contrast on 07/13/2018, no reaction noted after CT. oxycodone Adverse Reaction (Verified 12/24/19 20:09) Other 'OFF THE WALL' Medications to take at Discharge tamsulosin 0.4 mg capsule 0.4 mg PO DAILY@1730 #90 cap 12/09/18 warfarin 6 mg tablet 6 mg PO MOWESA tab 04/13/19 rosuvastatin 20 mg tablet 20 mg PO DAILY #90 tab 05/07/19 calcium carbonate 600 mg calcium (1,500 mg) tablet 600 mg PO DAILY 08/24/19 hydrochlorothiazide 25 mg tablet 25 mg PO QDAY #90 tab 08/28/19 glycopyrrolate 9 mcg-formoterol 4.8 mcg HFA aerosol inhaler 2 puff INHALATION BID 11/02/19 gabapentin 300 mg capsule 300 mg PO BID 90 Days #180 cap 12/07/19 albuterol sulfate 90 mcg/actuation aerosol inhaler 2 puff INHALATION Q6H PRN #8.5 g 12/15/19 benzonatate 100 mg capsule 200 mg PO QHS PRN #90 cap 12/15/19 Finasteride 5 mg PO QHS 12/24/19 Warfarin Sodium 4 mg PO SUTUTHFR 12/24/19 phenazopyridine 100 mg tablet 100 mg PO TID PRN 7 Days #14 tab 12/24/19 Acetaminophen [Tylenol Tablet] 650 mg PO Q6H PRN PRN tablet 12/27/19 Ciprofloxacin [Cipro] 500 mg PO BID #48 tab 12/27/19 Magnesium Hydroxide [Milk Of Magnesia] 30 ml PO DAILY PRN PRN udc 12/27/19 traMADol [Ultram] 50 mg PO Q6H PRN PRN 5 Days #20 tablet 12/27/19 The following prescriptions were given: Ciprofloxacin [Cipro] 500 mg PO BID #48 tab Transmission Status: Pending to [id number] traMADol [Ultram] 50 mg PO Q6H PRN PRN 5 Days #20 tablet PRN Reason: Pain Score 4-10/10 Transmission Status: Received by [id number] Primary Care Physician: Wade Padilla MD [Primary Care Provider] - Please follow up with your Primary Care Physician in: 1-2 weeks Test Results: Test results from this visit will be discussed in further detail at your follow-up appointment, if applicable. Please Follow Up With: Matthew Arechiga MD - Call for instructions regarding surgery. When: Saturday Proposed Discharge Date: 12/27/19
[2019-12-27] MEDS: Ciprofloxacin 400 MG/200 ML BAG 200 MG IV (09:42)
[2019-12-27] MEDS: 0.9% Saline Lock 10 ML Syringe IV (09:43)
--- NOTE | 2019-12-27 11:14 | PCM.DC.SUM ---
<Flip Horne - Last Filed: 12/27/19 11:14> Discharge Date and Diagnosis Date of Admission: 12/24/19 Date of Discharge: 12/27/19 - Primary Discharge Diagnosis Active and Suspected Problems (Last Reviewed 12/25/19 @ 12:[address] Matthew Arechiga MD) UTI, Prostatitis Prostate mass BPH hx DVTs HTN HLD COPD no exacerbation - Secondary Discharge Diagnosis Chronic Problems (Last Reviewed 12/25/19 @ 12:[address] 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 CT/CT Abd/Pelvis W/WO Contrast IMPRESSION: No stones or hydronephrosis. Bladder wall thickening. Enlarged prostate gland with necrotic/cystic mass versus urethral diverticulum. Consults: [facility] - Urology Operations: None Procedures: None Summary of Care Provided: Hospital course: The patient is a 69 year old M with pmhx of BPH, recurrent UTIs, COPD, BPH, DVTs HTN, HLD who presented to the ER with hamaturia, dysuria, chills, and rectal pain. He had no fever or leukocytosis, however the patient had a significant + UA for UTI. He was admitted and placed on cipro for suspected prostatitis. He continued to have severe symptoms. He was supposed to have a cystoscopy with Dr. Arechiga as an outpatient on January 18, so we consulted Dr. Arechiga to eval the patient. We obtained a contrast CT of the abd/pelvis which showed bladder wall thickening, enlarged prostate with necrotic/cystic mass versus urethral diverticulum, and no hydronephrosis. Dr. Arechiga arranged for the patient to have an outpatient cystoscopy on Saturday. The patient was kept one more night on IV cipro. He continues to have symotoms however they have improved. He has no fever/leukocytosis. He was transitioned to PO cipro to complete a total of 28 days of therapy. He will need to follow up with his PCP in 1-2 weeks. Follow up with Dr. Arechiga Saturday. He was instructed to call the office tomorrow for instructions for the cysto. He was instructed to have his INR checked Saturday. He was discharged home in stable condition. This patient was seen by Flip Horne PA-C under the supervision of Doctor Elizabeth. [] - Physical Exam Vitals/I&O's: Vital Signs Temp Pulse Resp BP Pulse Ox 98 F 75 20 H 107/44 L 95 12/27/19 08:20 12/27/19 08:20 12/27/19 08:20 12/27/19 08:20 12/27/19 08:20 Oxygen Delivery Method Room Air Weight: 199 lb 1.239 oz Body Mass Index (BMI) 28.5 Intake and Output for Last 24 Hours 12/25/19 12/26/19 12/27/19 23:59 23:59 23:59 Intake Total 3670 / 4070 2715.25 / 2715.25 484 / 484 Output Total 1500 / 1500 1050 / 1050 450 / 450 Balance 2170 / 2570 1665.25 / 1665.25 34 / 34 General: Alert, Oriented x3, Cooperative HEENT: Atraumatic, PERRLA, EOMI, Normocephalic Neck: Supple, No JVD, Negative Carotid Bruits Lungs: Clear to auscultation, Normal air movement Cardiovascular: Regular rate, No murmurs Abdomen: Bowel Sounds Present, Soft, Non Tender Extremities: No edema, Capillary Refill Less than 3 Seconds Skin: No rashes, No breakdown Musculoskeletal: No Tenderness to Palpation of Joints or Extremities Neurological: Cranial nerves II-XII grossly intact Psych/Mental Status: Normal Affect, Appropriate, Alert and oriented to time, place, person, mood and affect Microbiology Past 72 Hours 12/24/19 20:47 Blood Culture (Wb) - Right Wrist Blood Culture - Preliminary No growth in 48 hours. 12/24/19 20:45 Blood Culture (Wb) - Left Wrist Blood Culture - Preliminary No growth in 48 hours. 12/24/19 20:20 Urine, Clean Catch Urine Culture - Final Presumptive E. coli Laboratory Results 12/27/19 06:01: PT 23.6 H, INR 2.2 12/27/19 06:01: WBC 8.1, RBC 3.67 L, Hgb 12.0 L, Hct 37.4 L, MCV 101.9 H, MCH 32.7 H, MCHC 32.1, RDW Std Deviation 55.2 H, RDW Coeff of Marcelle 14.5, Plt Count 239, MPV 9.2, Immature Gran % (Auto) 0.200, Neut % (Auto) 61.4, Lymph % (Auto) 27.2, Wilson % (Auto) 9.3, Eos % (Auto) 1.5, Baso % (Auto) 0.4, Absolute Neuts (auto) 5.0, Absolute Lymphs (auto) 2.19, Nucleated RBC % 0 Current Medications Acetaminophen (Tylenol) 650 mg PO Q6H PRN PRN PRN Reason: Pain Score 1-10/Temp > 100.7 F Last Admin: 12/26/19 21:52 Dose: 650 mg Documented by: Albuterol Sulfate (Ventolin Aerosols) 2.5 mg INHALATION Q4H PRN PRN PRN Reason: shortness of breath/wheezing Last Admin: 12/25/19 04:29 Dose: 2.5 mg Documented by: Albuterol/Ipratropium (Duoneb) 3 ml INHALATION Q6HWA.RT [facility] Last Admin: 12/27/19 07:11 Dose: 3 ml Documented by: Atorvastatin Calcium (Lipitor) 40 mg PO DAILY@2200 [facility] Last Admin: 12/26/19 21:50 Dose: 40 mg Documented by: Benzonatate (Tessalon Perle) 200 mg PO QHS PRN PRN Reason: cough Last Admin: 12/26/19 21:49 Dose: 200 mg Documented by: Calcium Carbonate (Tums) 500 mg PO DAILYCM [facility] Last Admin: 12/27/19 08:34 Dose: 500 mg Documented by: Gabapentin (Neurontin) 300 mg PO BID [facility] Last Admin: 12/27/19 08:33 Dose: 300 mg Documented by: Hydrochlorothiazide (Hctz) 25 mg PO DAILY [facility] Last Admin: 12/27/19 08:33 Dose: 25 mg Documented by: Ciprofloxacin (Cipro) 400 mg in 200 mls @ 200 mls/hr IV Q12 [facility] Last Infusion: 12/27/19 11:06 Dose: Infused Documented by: Sodium Chloride () 250 mls @ 15 mls/hr IV .[id number] PRN PRN Reason: Saline Flush Last Infusion: 12/27/19 11:06 Dose: Infused Documented by: Magnesium Hydroxide (Milk Of Magnesia) 30 ml PO DAILY [facility] Last Admin: 12/27/19 09:45 Dose: Not Given Documented by: Nutritional Formula (Lactose Free) (Ensure Enlive) 120 ml PO 4X/DAY [facility] Last Admin: 12/27/19 08:33 Dose: 120 ml Documented by: Phenazopyridine HCl (Azo Standard) 95 mg PO TID PRN PRN PRN Reason: urinary pain Last Admin: 12/26/19 20:35 Dose: 95 mg Documented by: Polyethylene Glycol (Miralax) 17 gm PO DAILY [facility] Last Admin: 12/27/19 08:33 Dose: 17 gm Documented by: Senna/Docusate Sodium (Senokot-S, Shelia-Colace) 1 tablet PO DAILY PRN PRN PRN Reason: Constipation Last Admin: 12/26/19 16:21 Dose: 1 tablet Documented by: Sodium Chloride () 10 - 40 ml IV UD PRN PRN Reason: SALINE FLUSH Last Admin: 12/27/19 09:43 Dose: 10 ml Documented by: Tamsulosin HCl (Flomax) 0.4 mg PO DAILY@1730 [facility] Last Admin: 12/26/19 16:23 Dose: 0.4 mg Documented by: Tramadol HCl (Ultram) 50 mg PO Q6H PRN PRN PRN Reason: Pain Score 4-10/10 Last Admin: 12/27/19 05:46 Dose: 50 mg Documented by: Warfarin Sodium (Coumadin (Pbkc)) 4 mg PO SuTuThFr@1700 [facility] Last Admin: 12/25/19 16:01 Dose: 4 mg Documented by: Warfarin Sodium (Coumadin (Pbkc)) 6 mg PO MoWeSa@1700 [facility] Last Admin: 12/26/19 16:23 Dose: 6 mg Documented by: Discharge Diet: Low fat/ Low Cholesterol, 2000 mg Sodium Diet Discharge Activity: Return to Normal Activity Home Medications: Medications to take at Discharge tamsulosin 0.4 mg capsule 0.4 mg PO DAILY@1730 #90 cap 12/09/18 warfarin 6 mg tablet 6 mg PO MOWESA tab 04/13/19 rosuvastatin 20 mg tablet 20 mg PO DAILY #90 tab 05/07/19 calcium carbonate 600 mg calcium (1,500 mg) tablet 600 mg PO DAILY 08/24/19 hydrochlorothiazide 25 mg tablet 25 mg PO QDAY #90 tab 08/28/19 glycopyrrolate 9 mcg-formoterol 4.8 mcg HFA aerosol inhaler 2 puff INHALATION BID 11/02/19 gabapentin 300 mg capsule 300 mg PO BID 90 Days #180 cap 12/07/19 albuterol sulfate 90 mcg/actuation aerosol inhaler 2 puff INHALATION Q6H PRN #8.5 g 12/15/19 benzonatate 100 mg capsule 200 mg PO QHS PRN #90 cap 12/15/19 Finasteride 5 mg PO QHS 12/24/19 Warfarin Sodium 4 mg PO SUTUTHFR 12/24/19 phenazopyridine 100 mg tablet 100 mg PO TID PRN 7 Days #14 tab 12/24/19 Acetaminophen [Tylenol Tablet] 650 mg PO Q6H PRN PRN tab 12/27/19 Ciprofloxacin [Cipro] 500 mg PO BID #48 tab 12/27/19 Magnesium Hydroxide [Milk Of Magnesia] 30 ml PO DAILY PRN PRN udc 12/27/19 traMADol [Ultram] 50 mg PO Q6H PRN PRN 5 Days #20 tab 12/27/19 Following Prescrptions Were Given to Patient: Ciprofloxacin [Cipro] 500 mg PO BID #48 tab Transmission Status: [id number] traMADol [Ultram] 50 mg PO Q6H PRN PRN 5 Days #20 tab PRN Reason: Pain Score 4-10/10 Transmission Status: Received by [id number] Primary Care Physician: Wade Padilla MD [Primary Care Provider] - Please follow up with your Primary Care Physician in: 1-2 weeks Please Follow Up With: Matthew Arechiga MD When: Saturday Please Follow Up With: Wade Padilla MD When: 1-2 weeks Disposition: Home Minutes spent on discharge:: 35 Patient Condition:: Stable Medical Necessity - Tobacco Use Smoking Status: Current every day smoker Tobacco Use: Cigarettes Meaningful Use Info Meaningful Use Diagnoses (Choose all that apply): None applicable <[place] - Last Filed: 12/27/19 12:21> Discharge Date and Diagnosis - Secondary Discharge Diagnosis Chronic Problems (Last Reviewed 12/25/19 @ 12:[address] 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 I have independently interviewed and examined the patient and reviewed pertinent historical, laboratory, and other data. Please refer to TYESHA Little note for his patient's presentation, findings, and recommendations. I have reviewed and his note and concur with his documentation 69-year-old male with past medical history of BPH, recurrent UTIs who presented with dysuria, chills, hematuria and rectal pain. Patient was admitted on IV ciprofloxacin for UTI/prostatitis. Urology was consulted and the plan was for cystoscopy in [address] time. Patient underwent [address] of the abdomen and pelvis which showed a necrotic/cystic mass versus urethral diverticulum. Urine cultures were also positive for E. coli Patient continued to complains of dysuria and frequency. No fevers seen during the hospital stay. Just charged to complete a 28 course of Cipro. His INR was therapeutic at discharge. He will follow-up and have a repeat INR done. Physical Exam: Gen: Comfortable, not pale, not jaundiced CVS:HS I +II, regular, no murmurs RESP: CTA GI: BS present and normal, soft, nontender, no palpable organs EXT:No edema - Physical Exam Vitals/I&O's: Vital Signs Temp Pulse Resp BP Pulse Ox 98 F 75 20 H 107/44 L 95 12/27/19 08:20 12/27/19 08:20 12/27/19 08:20 12/27/19 08:20 12/27/19 08:20 Oxygen Delivery Method Room Air Weight: 90.3 kg Body Mass Index (BMI) 28.5 Intake and Output for Last 24 Hours 12/25/19 12/26/19 12/27/19 23:59 23:59 23:59 Intake Total 3670 / 4070 2715.25 / 2715.25 934 / 934 Output Total 1500 / 1500 1050 / 1050 450 / 450 Balance 2170 / 2570 1665.25 / 1665.25 484 / 484 Microbiology Past 72 Hours 12/24/19 20:47 Blood Culture (Wb) - Right Wrist Blood Culture - Preliminary No growth in 48 hours. 12/24/19 20:45 Blood Culture (Wb) - Left Wrist Blood Culture - Preliminary No growth in 48 hours. 12/24/19 20:20 Urine, Clean Catch Urine Culture - Final Presumptive E. coli Laboratory Results 12/27/19 06:01: PT 23.6 H, INR 2.2 12/27/19 06:01: WBC 8.1, RBC 3.67 L, Hgb 12.0 L, Hct 37.4 L, MCV 101.9 H, MCH 32.7 H, MCHC 32.1, RDW Std Deviation 55.2 H, RDW Coeff of Marcelle 14.5, Plt Count 239, MPV 9.2, Immature Gran % (Auto) 0.200, Neut % (Auto) 61.4, Lymph % (Auto) 27.2, Wilson % (Auto) 9.3, Eos % (Auto) 1.5, Baso % (Auto) 0.4, Absolute Neuts (auto) 5.0, Absolute Lymphs (auto) 2.19, Nucleated RBC % 0 Inpatient E&M: [id number] Subs Hosp L2
--- NOTE | 2019-12-28 14:51 | CASEMGMT ---
TOREY DC PHONE CALL DC DATE: 12.27.2019 DC DISPOSITION: Home DC DIAGNOSIS: UTI Prostatitis LACE/STRATA: 07/12 F/U APPTS MADE PRIOR TO DC: no, weekend discharge PRESCRIPTIONS ACQUIRED BY PT: X Attempted call to patient's home phone. no answer, and no message machine. Attempted call to cell phone. No answer, and carrier message that phone message service is not set up. Claudio COBB RN ACM
== END 2019-12-27 11:27 | disposition home or self-care (01) | DRG 728 ==
LOC: ED 21:36 → PCU 21:47
PROVIDERS: Physician Assistant; Admitting Provider Family Medicine; Emergency Provider Emergency Medicine; PCP Internal Medicine; Visit Provider Internal Medicine
DX: N41.9 Inflammatory disease of prostate, unspecified (principal); N39.0 Urinary tract infection, site not specified; N13.8 Other obstructive and reflux uropathy; B96.20 Unspecified Escherichia coli [E. coli] as the cause of diseases classified elsewhere; R31.0 Gross hematuria; N40.1 Benign prostatic hyperplasia with lower urinary tract symptoms; R35.0 Frequency of micturition; J44.9 Chronic obstructive pulmonary disease, unspecified; I10 Essential (primary) hypertension; E78.00 Pure hypercholesterolemia, unspecified; Z79.01 Long term (current) use of 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s; Z79.899 Other long term (current) drug therapy; Z87.440 Personal history of urinary (tract) infections; Z86.718 Personal history of other venous thrombosis and embolism; E78.5 Hyperlipidemia, unspecified; K21.9 Gastro-esophageal reflux disease without esophagitis; G62.9 Polyneuropathy, unspecified; G47.33 Obstructive sleep apnea (adult) (pediatric); E66.9 Obesity, unspecified; Z68.28 Body mass index [BMI] 28.0-28.9, adult; F17.210 Nicotine dependence, cigarettes, uncomplicated
CPT/HCPCS: 36415; 71045; 74178; 80048; 81001; 83605; 85025; 85610; 87040; 87086; 87088; 87186; 94640; 94667; 94668; 97802; 99285; 99406; J7030; J7050; Q9967; A4216; J0744

== ENCOUNTER → 2019-12-24 | Outpatient (CLI) | payer MEDICARE, OTHER, SELFPAY ==
[2019-12-24 09:33] VITALS: BMI 27.8
[2019-12-24 15:54] LABS: Mucous, Urine 0 SEEN /hpf (<or=2+)
[2019-12-24 16:01] LABS: Color, Urine Yellow (Yellow); Glucose, Dipstick Normal (Normal); Ketone-Dipstick Negative (Negative); Leukocyte Esterase-Dipstick 500 /ul (Negative); Nitrite-Dipstick Negative (Negative); Occult Blood-Urine 10 /ul (Negative); Protein-Dipstick Negative (Negative); Specific Gravity, Urine 1.015 (1.002-1.030); Urine Bilirubin Dipstick Negative (Negative); Urine Clarity Sl. Cloudy (Clear); Urine Urobilinogen Normal (Normal)
[2019-12-24 16:04] LABS: Absolute Neutrophil Count 5.1 X10^3/uL (2.0-7.7); Basophil# 0.04 X10^3/uL; Basophil% 0.5 % (0-1); Eosinophil# 0.12 X10^3/uL; Eosinophils% 1.6 % (0-5); Hematocrit 40.9 % (40-54); Hemoglobin 13.3 g/dL (13.0-16.5); Lymphocyte % 23.3 % (19-41); Mean Corp Hgb Conc 32.5 g/dL (32-36); Mean Corpuscular Hgb 32.4 pg (27.0-32.0); Mean Corpuscular Volume 99.5 fL (80-94); Mean Platelet Vol. 9.4 fl (6.2-12.0); Monocyte# 0.69 X10^3/uL; Monocyte% 8.9 % (0-10); NRBC Flagged by Analyzer 0 % (0-5); Neutrophil # 5.05 X10^3/uL (2.7-7.7); Neutrophil % 65.4 % (47-70); Platelet Count 210 K/mm3 (150-450); RBC Distribution Width CV 14.5 % (11.6-14.6); RBC Distribution Width SD 52.6 fl (35.1-43.9); Red Blood Count 4.11 M/mm3 (4.6-6.2); White Blood Count 7.7 K/mm3 (4.4-11.0)
[2019-12-24 16:24] LABS: Amorphous Sediment 1+ URATE; Bacteria RARE /hpf (None Seen); Red Blood Cells-Urine 0-5 SEEN /hpf (0-5); Squamous Epithelial Cells - UA 0-5 SEEN /hpf (0-5); White Blood Cells 10-25 SEEN /hpf (0-5)
[2019-12-24 16:26] LABS: International Normalized Ratio 2.1; Prothrombin Time (Protime)PT. 23.5 SECONDS (11.7-14.9)
== END | disposition home or self-care (01) ==
LOC: LABSPEC 15:41
PROVIDERS: PCP Internal Medicine; Referring Provider Nurse Practitioner Family; Visit Provider Nurse Practitioner Family
DX: R31.9 Hematuria, unspecified (principal); R10.9 Unspecified abdominal pain; Z79.01 Long term (current) use of 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s
CPT/HCPCS: 81001; 85025; 85610; 87086; 87088; 87186

== ENCOUNTER 2019-12-28 20:41 | Emergency (ER) | payer MEDICARE, OTHER, SELFPAY ==
[2019-12-28 20:42] VITALS: BP 138/74; PULSE 82; PULSE 83; RESP 16; RESP 17; TEMP 36.7; O2SAT 94; O2SAT 95; BMI 28.3
--- NOTE | 2019-12-28 20:58 | ED.VIS.GEN ---
History of Present Illness Chief Complaint: James C/O Detail of Chief Complaint: penile bleeding around catheter Informant: Patient Onset: Today - several hrs Context: Sudden Onset Timing: Continuous Quality: oozing blood Location: penis, around catheter Current Severity: Mild Maximum Severity: Moderate Worsened by: n/a Relieved by: n/a Associated Symptoms: no new sx; pelvic and perineal pain, and pain at glans/urethral meatus Narrative: Patient was just recently admitted to the hospital for several days with a diagnosis of prostatitis, on IV Cipro, he was having hematuria and is on warfarin because of DVTs. He states the warfarin was discontinued, they are planning on rechecking his INR tomorrow, yesterday it was 2.2. He went to the office today and they attempted cystoscopy after local anesthesia but it was unable to be performed because of scar tissue. Shortly after that he had a new James placed. It has been draining urine. It started leaking blood around the catheter, with a small amount within it, but still continuing to drain, and no other new symptoms. He did not call his urologist. He called his PCP, they directed him to the ER for this problem. He denies any new systemic symptoms. 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 (4) BPH (benign prostatic hyperplasia) Status: Chronic (5) COPD (chronic obstructive pulmonary disease) Status: Chronic (6) Carotid artery stenosis Status: Chronic (7) 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 reflux disease) Status: Chronic (8) Hyperlipidemia Status: Chronic (9) Hypertension Status: Chronic (10) LIZA (obstructive sleep apnea) Status: Chronic (11) Peripheral neuropathy Status: Chronic (12) Deep vein thrombosis (DVT) Status: Resolved Past Medical History - Allergies and Home Meds Allergies/Adverse Reactions: Allergies Iodinated Contrast Media [Iodinated Contrast Media - IV Dye] Allergy (Verified 12/28/19 20:42) Unknown per patient unsure of reaction had facet spinal block about 15 years ago and per patient his surgeon said to torey iv contrast as allergy. patient was premedicated with 13-hour prep with prednisone before CT of chest with IV contrast on 07/13/2018, no reaction noted after CT. oxycodone Adverse Reaction (Verified 12/28/19 20:42) Other 'OFF THE WALL' Primary Care Physician: Wade Padilla MD [Primary Care Provider] - Surgical History: herniorrhaphy, - - Rafael Smoking Status: Current every day smoker Review of Systems General: Denies: Chills, Fever, Sweats Respiratory: Reports: Cough. Denies: Dyspnea Gastrointestinal: Reports: Abdominal pain. Denies: Nausea, Vomiting, Diarrhea Genitourinary: Reports: Hematuria Musculoskeletal: Reports: Swelling - chronic BLE. Denies: Extremity Pain Skin: Denies: Rash, Wounds Neurological: Denies: Headache, Weakness, Numbness Physical Exam Vital Signs/Narrative: Vital Signs Temp Pulse Resp BP Pulse Ox 12/28/19 20:42 98.1 F 83 17 138/74 H 94 Inital Vital Signs reviewed: Yes General: Well nourished, Well developed, No Acute Distress Head: Normocephalic, Atraumatic Eyes: Perrl, EOMI ENT: Moist mucous membranes, No rhinorrhea Neck: Supple, Nontender Respiratory: No distress Abdomen: Soft, Nondistended, Normal bowel sounds, Tender - mild throughout pelvis. Negative for: Guarding, Rebound tenderness : - - James catheter in place at the urethral meatus. It is draining dark yellow non-grossly bloody urine, there are 1 or 2 small specks of blood clot in the bag. There is a small amount of blood present at the urethral meatus around the catheter with no active bleeding. The penis and testicles are otherwise unremarkable. Extremities: Nontender, Edema Skin: Normal color, No rash, No Trauma Neurological: Alert, Oriented x3, Cranial nerves II-XII grossly intact, Normal Strength, Normal Sensation, Normal Gait Psychological: Normal affect, Normal Mood, - - angry Diagnostic/Tx/Re-eval - Medical Decision Making Discussed with Dr. Arechiga. Patient has no symptoms of anemia. He agrees that he can safely be reassured and discharged home for follow-up/surgery as scheduled later this week. His bleeding is mild, he discontinued his warfarin, his INR was 2.2 yesterday which is why he is probably still bleeding, however it will stop since he already stopped his warfarin, with time, likely a short amount. We irrigated his catheter to ensure patency, and it is patent without gross hematuria. Patient is reassured and offered some analgesics, and discharged home with a couple of ABD pads. ED Disposition - Plan for ED Patient: Disposition: Home or Assisted Living Diagnosis: Bleeding from urethra in male Instructions: ED James Catheter Care Referrals: Matthew Arechiga MD [STAFF PHYSICIAN] - Keep Marquez appointment (In the meantime, call with any questions or concerns) Additional Instructions: Given your scenario with prostatitis and recent manipulation of the urethra/prostate and on Coumadin, bleeding around the catheter is normal and expected as long as it is relatively mild which it is at this time. This will likely stop in a short period of time since you have already discontinued your warfarin, as your INR comes down. It was 2.2 yesterday/Saturday. Use pads to help control any dripping of blood. Reasons to return to the ER include hemorrhage into the catheter that does not stop, clotting off of the James catheter with no drainage, absolute hemorrhage around the catheter that is out of control, symptoms of weakness, passing out, or shortness of breath with light exertion as if your blood counts are dangerously low.
[2019-12-28] MEDS: Morphine 4 MG/ML Syringe SC (21:51)
== END 2019-12-28 22:05 | disposition home or self-care (01) ==
PROVIDERS: Emergency Provider Emergency Medicine; PCP Internal Medicine
DX: N36.8 Other specified disorders of urethra (principal); N40.0 Benign prostatic hyperplasia without lower urinary tract symptoms; R31.9 Hematuria, unspecified; R10.2 Pelvic and perineal pain; Z98.890 Other specified postprocedural states; J44.9 Chronic obstructive pulmonary disease, unspecified; I10 Essential (primary) hypertension; E78.5 Hyperlipidemia, unspecified; G62.9 Polyneuropathy, unspecified; K21.9 Gastro-esophageal reflux disease without esophagitis; G47.33 Obstructive sleep apnea (adult) (pediatric); F17.200 Nicotine dependence, unspecified, uncomplicated; Z79.01 Long term (current) use of 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s; Z79.899 Other long term (current) drug therapy; Z88.8 Allergy status to other drugs, medicaments and biological substances; Z86.718 Personal history of other venous thrombosis and embolism
CPT/HCPCS: 96372; 99282

== ENCOUNTER 2019-12-31 11:14 | Outpatient (RCR) | payer MEDICARE, OTHER, SELFPAY ==
[2019-12-07 13:35] VITALS: BMI 27.8
[2019-12-31 12:10] LABS: International Normalized Ratio 1.3; Prothrombin Time (Protime)PT. 15.6 SECONDS (11.7-14.9)
== END 2020-01-07 18:00 | disposition home or self-care (01) ==
LOC: MTLAB 11:14
PROVIDERS: Family Provider Internal Medicine; PCP Internal Medicine; Referring Provider Internal Medicine; Visit Provider Internal Medicine
DX: I82.409 Acute embolism and thrombosis of unspecified deep veins of unspecified lower extremity (principal); Z79.01 Long term (current) use of 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s
CPT/HCPCS: 36415; 85610

== ENCOUNTER 2020-01-02 10:55 | Inpatient (IN) | payer MEDICARE, OTHER, SELFPAY ==
[2020-01-01] VITALS (12 sets, daily range): BP systolic 95–180; BP diastolic 37–99; PULSE 55–91; RESP 16–18; TEMP 36.7–38.8; O2SAT 91–99; BMI 29.0
--- NOTE | 2020-01-01 09:11 | EKG12_ITS ---
Test Reason : PRE OP Blood Pressure : / mmHG Vent. Rate : 067 BPM Atrial Rate : 067 BPM P-R Int : 144 ms QRS Dur : 094 ms QT Int : 414 ms P-R-T Axes : 065 064 043 degrees QTc Int : 437 ms Normal sinus rhythm Normal ECG When compared with ECG of 12-JAN-2019 11:31, No significant change was found Confirmed by ESPERANZA BENÍTEZ ([id number]), assignment desk editor CARLY NOE ([id number] on 01/08/2020 10:35:11 AM Referred By: Matthew Arechiga Confirmed By:ESPERANZA BENÍTEZ
[2020-01-01 09:36] LABS: Prothrombin Time Fingerstick 16.8 SEC (11.9-14.4)
[2020-01-01 09:55] LABS: International Normalized Ratio 1.2; Prothrombin Time (Protime)PT. 15.1 SECONDS (11.7-14.9)
[2020-01-01] MEDS: Lactated Ringers 1,000 ML 100 ML IV ×2 (10:00→13:56)
--- NOTE | 2020-01-01 11:23 | HP.PCM_ITS ---
History of Present Illness Date of Admission: 01/01/20 Chief Complaint: Prostate mass The patient is a 69 year old male who presented to the hospital with urinary tract infection cystoscopy was done at the place catheter and a very narrow stricture in the proximal urethra CAT scan was done to demonstrate a mass within the prostate concerned that he may have prostate cancer or prostatic abscess or diverticulum today we will proceed with a cystoscopy diagnostic and a transurethral resection of the prostate. He had to go home with a catheter tomorrow after the surgery. Past Medical History Past Medical History (Chronic Problems): Chronic Problems (Last Reviewed 12/25/19 @ 12:[address] 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) 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 reflux disease) (Chronic) alf current use of 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 (Chronic) Skin lesion (Chronic) Intermittent claudication (Chronic) Abdominal pain (Chronic) COPD (chronic obstructive pulmonary disease) (Chronic) LIZA (obstructive sleep apnea) (Chronic) Tobacco abuse (Chronic) Hyperlipidemia (Chronic) Peripheral neuropathy (Chronic) Obesity (Chronic) Hemorrhoids (Chronic) BPH (benign prostatic hyperplasia) (Chronic) Carotid artery stenosis (Chronic) Hypertension (Chronic) SOB (shortness of breath) (Chronic) Medical History: Medical History (Last Reviewed 12/25/19 @ 12:[address] 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) Z79.01 Deep vein thrombosis (DVT) (Resolved) I82.409 Skin lesion (Chronic) L98.9 Intermittent claudication (Chronic) I73.9 Chest pain (Resolved) R07.9 COPD (chronic obstructive pulmonary disease) (Chronic) J44.9 LIZA (obstructive sleep apnea) (Chronic) G47.33 Tobacco abuse (Chronic) Z72.0 Hyperlipidemia (Chronic) E78.5 Peripheral neuropathy (Chronic) G62.9 Obesity (Chronic) E66.9 Carotid artery stenosis (Chronic) I65.29 Hypertension (Chronic) I10 SOB (shortness of breath) (Chronic) R06.02 Acute sinusitis J01.90 Bronchitis J40 Cough R05 Dyspnea R06.00 History of blood clots Z86.718 Wheezing R06.2 Allergies Iodinated Contrast Media [Iodinated Contrast Media - IV Dye] Allergy (Verified 01/01/20 09:24) Unknown per patient unsure of reaction had facet spinal block about 15 years ago and per patient his surgeon said to torey iv contrast as allergy. patient was premedicated with 13-hour prep with prednisone before CT of chest with IV contrast on 07/13/2018, no reaction noted after CT. oxycodone Adverse Reaction (Verified 01/01/20 09:24) Other 'OFF THE WALL' Home Medications: Ambulatory Orders Medication Instructions Recorded tamsulosin 0.4 mg capsule 0.4 mg PO DAILY@1730 #90 cap 12/09/18 rosuvastatin 20 mg tablet 20 mg PO DAILY #90 tab 05/07/19 calcium carbonate 600 mg calcium 600 mg PO DAILY 08/24/19 (1,500 mg) tablet hydrochlorothiazide 25 mg tablet 25 mg PO QDAY #90 tab 08/28/19 gabapentin 300 mg capsule 300 mg PO BID 90 Days #180 cap 12/07/19 albuterol sulfate 90 mcg/actuation 2 puff INHALATION Q6H PRN #8.5 g 12/15/19 aerosol inhaler benzonatate 100 mg capsule 200 mg PO QHS PRN #90 cap 12/15/19 Finasteride 5 mg PO QHS 12/24/19 Warfarin Sodium 4 mg PO DAILY 12/24/19 Acetaminophen [Tylenol Tablet] 650 mg PO Q6H PRN PRN tab 12/27/19 Ciprofloxacin [Cipro] 500 mg PO BID #48 tab 12/27/19 Glycopyrrolate/Formoterol Fum 2 puff INHALATION BID 12/30/19 [Bevespi Aerosphere Inhaler] Polyethylene Glycol 3350 [Miralax] 17 gm PO DAILY 12/30/19 Surgical History: Surgical History (Last Reviewed 12/24/19 @ 09:33 by Gerda Sanchez) History of wisdom tooth extraction (Resolved) K08.409 History of arthroscopy of left knee (Resolved) Z98.890 Status post hammer toe correction (Resolved) Z98.890, Z87.39 History of nasal polypectomy (Resolved) Z98.890, Z87.09 History of umbilical hernia repair (Resolved) Z98.890, Z87.19 Right foot operation after an accident (Resolved) History of back surgery Z98.890 07/06/2018, microdiscectomy, L2-L3 right. Surgical History: herniorrhaphy, - - Hammertoe Psychiatric History: No pertinent psych hx Smoking Status: Former smoker Tobacco Use: Cigarettes Review of Systems Constitutional: Denies: Chills, Fever, Weight Change HEENT: Denies: Head Aches, Sinus Congestion, Sinus Drainage Cardiovascular: Denies: Chest Pain, Palpitations Respiratory: Denies: Cough, Shortness of breath at rest, Sputum production Gastrointestinal: Denies: Abdominal Pain, Nausea, Vomiting Genitourinary: Denies: Dysuria Musculoskeletal: Denies: Joint Pain, Joint Tenderness Skin: Denies: Rash, Wounds Neurological: Denies: Numbness, Tingling, Focal weakness Psychiatric: Denies: Anxiety, Depression, Homicidal Ideations, Suicidal Ideations Hematologic/ Lymphatic: Denies: Easy Bruising, Easy Bleeding VTE Information - Inpt Only VTE Present on Admission: No VTE Mechan Device Prophylaxis: SCD's - Physical Exam Vitals/I&O's: Vital Signs Temp Pulse Resp BP Pulse Ox 99 F 71 16 129/45 H 94 01/01/20 09:46 01/01/20 09:46 01/01/20 09:46 01/01/20 09:46 01/01/20 09:46 Oxygen Delivery Method Room Air Weight: 91.8 kg Body Mass Index (BMI) 29.0 General: Alert, Oriented x3, Cooperative HEENT: Atraumatic, PERRLA, EOMI, Normocephalic Neck: Supple, No JVD, Negative Carotid Bruits Lungs: Clear to auscultation, Normal air movement Cardiovascular: Regular rate, No murmurs Abdomen: Bowel Sounds Present, Soft, Non Tender Extremities: No edema, Capillary Refill Less than 3 Seconds Skin: No rashes, No breakdown Musculoskeletal: No Tenderness to Palpation of Joints or Extremities Neurological: Cranial nerves II-XII grossly intact Psych/Mental Status: Normal Affect, Appropriate Laboratory Results 01/01/20 09:26: POC PT 16.8 H, INR 1.40 01/01/20 09:40: PT 15.1 H, INR 1.2 Current Medications Cefazolin Sodium 2 gm/ Sodium (Chloride) 110 mls @ 150 mls/hr IV PREOP ONE Stop: 01/01/20 12:13 Lactated Ringer's () 1,000 mls @ 100 mls/hr IV .Q10H [facility] Last Admin: 01/01/20 10:00 Dose: 100 mls/hr Documented by: Assessment/Plan All Active Problems (Last Reviewed 12/25/19 @ 12:[address] Matthew Arechiga MD) Gross hematuria (Acute) History of wisdom tooth extraction (Resolved) History of arthroscopy of left knee (Resolved) Status post hammer toe correction (Resolved) History of nasal polypectomy (Resolved) History of umbilical hernia repair (Resolved) Edema (Acute) Right foot operation after an accident (Resolved) Deep vein thrombosis (DVT) (Resolved) Urinary retention (Acute) Chest pain (Resolved) dyspnea (Acute) Acute right hip pain (Resolved) Atypical chest pain (Resolved) Chronic bronchitis (Resolved) Constipation (Resolved) Hand, foot and mouth disease (Resolved) PND (post-nasal drip) (Resolved) Sacroiliitis (Resolved) 69-year-old male presented with recurrent UTIs possible prostatic abscess p rostate mass we can proceed with a cystoscopy diagnostic and transurethral resection of the prostate James catheter placement he will hold go home tomorrow with a catheter to a three-way irrigation overnight.
[2020-01-01] MEDS: Cefazolin 2 GM in 0.9% Normal Saline 100 ML IV (11:28)
--- NOTE | 2020-01-01 11:30 | PROS_PTH ---
PATIENT: NAKUL BASSETT LOC: MS3 U#:[id number] AGE/SX: 69/M ROOM: [facility] [place] RE01/02/[address]: Dr. Matthew Arechiga MD : 1950 BED: 1 DIS: 01/06/2020 SPEC #: [id number] RECD: 01/01/20 14:16 STATUS: BOB NOGUEIRA #: [id number] CALOS: 01/01/20 11:[address]: Matthew Arechiga DEPT: SURGICAL PATHOLOGY RECD BY: Deuce Nam ENTERED: 01/04/20 11:24 SP TYPE: TURP OTHR DR: MD Dr. Wade Ahmadi MD Tissues: Prostate, NOS Procedures: Surgery Specimen Level IV HEADER OPERATION: Cysto, TUR, prostate, Olympus PRE-OP DIAGNOSIS: Prostate mass vs abscess, BPH, cystitis TISSUE SUBMITTED: Prostate chips MICROSCOPIC DIAGNOSIS Prostate chips, TUR: Benign prostatic hyperplasia, glandular and stromal type. Focal moderate to marked acute and chronic inflammation and abscess formation. NEERAJ:arie 01/05/20 MICROSCOPIC DESCRIPTION Slides are reviewed. GROSS DESCRIPTION Received is one container labeled with the patient's name and designated prostate chips. The specimen consists of multiple irregular fragments of pink-luna, rubbery, soft tissue that in aggregate weigh 12.1 gm and measure in aggregate 6 x 6 x 2 cm. The entire specimen is submitted in 12 cassettes. / NEERAJ:arie 01/04/20 TC:5 CPT: 92029
--- NOTE | 2020-01-01 11:31 | PCM.DC.URO ---
Discharge Diet: Light diet - advance as tolerated Discharge Activity: Return to Normal Activity Call your doctor if your incision/area has: Sudden Increased Bleeding Call your doctor if you observe: Fever of 101 or Higher, Uncontrolled pain Suture Line Care: Avoid Pulling/Pushing, Avoid Pinching/Bending Catheter: James to leg bag, James to large bag Drain: [place] Allergies/Adverse Reactions: Allergies Iodinated Contrast Media [Iodinated Contrast Media - IV Dye] Allergy (Verified 01/01/20 09:24) Unknown per patient unsure of reaction had facet spinal block about 15 years ago and per patient his surgeon said to torey iv contrast as allergy. patient was premedicated with 13-hour prep with prednisone before CT of chest with IV contrast on 07/13/2018, no reaction noted after CT. oxycodone Adverse Reaction (Verified 01/01/20 09:24) Other 'OFF THE WALL' Medications to take at Discharge tamsulosin 0.4 mg capsule 0.4 mg PO DAILY@1730 #90 cap 12/09/18 rosuvastatin 20 mg tablet 20 mg PO DAILY #90 tab 05/07/19 calcium carbonate 600 mg calcium (1,500 mg) tablet 600 mg PO DAILY 08/24/19 hydrochlorothiazide 25 mg tablet 25 mg PO QDAY #90 tab 08/28/19 gabapentin 300 mg capsule 300 mg PO BID 90 Days #180 cap 12/07/19 albuterol sulfate 90 mcg/actuation aerosol inhaler 2 puff INHALATION Q6H PRN #8.5 g 12/15/19 benzonatate 100 mg capsule 200 mg PO QHS PRN #90 cap 12/15/19 Finasteride 5 mg PO QHS 12/24/19 Acetaminophen [Tylenol Tablet] 650 mg PO Q6H PRN PRN tab 12/27/19 Ciprofloxacin [Cipro] 500 mg PO BID #48 tab 12/27/19 Glycopyrrolate/Formoterol Fum [Bevespi Aerosphere Inhaler] 2 puff INHALATION BID 12/30/19 Polyethylene Glycol 3350 [Miralax] 17 gm PO DAILY 12/30/19 Primary Care Physician: Wade Padilla MD [Primary Care Provider] - Test Results: Test results from this visit will be discussed in further detail at your follow-up appointment, if applicable. Please Follow Up With: Matthew Arechiga MD When: please call to make an appointment. Proposed Discharge Date: 01/02/20
--- NOTE | 2020-01-01 12:14 | PCM.OPRPT ---
Report of Operation Date of Procedure: 01/01/20 Pre-Operative Diagnosis: Prostate abscess Post-Operative Diagnosis: The same Surgery/Procedure Performed:: Transurethral resection of the prostate and unroofing of prostatic abscess Description of Surgical Findings:: 69-year-old male who I saw in the office this past week he was in the hospital with a UTI CAT scan was that demonstrated a prostatic mass or abscess in the prostate cystoscopy in the office was not possible because he had a stricture in the bulbar urethra at the dilators to place a catheter he was then placed on the operative schedule as soon as possible for resection of this prostatic mass/abscess. Patient was taken back to the operating room after smooth induction of anesthesia he was placed supine on the table, patient was placed in dorsolithotomy position the penis and testicles were prepped and draped in the usual sterile fashion, catheter that had been in the bladder was removed I then went into the urethra with a 21 [place] rigid cystourethroscope for diagnostic cystoscopy entire length the urethra was normal the prosthetic urethra was normal but inside the bulbar urethra there was an area where the scar tissue is been stretched out as a raw area going through the bulbar urethra and then up to the sphincter. No obvious masses within the prostate but he did have bilateral hypertrophy obstruction and small median lobe identified the trigone left and right ureteral orifice. I then proceeded with the resection of the prostate we switched over to the 24 [place] noncontinuous flow resectoscope started resection at the 6 o'clock position of the floor the prostate all the way back to the verumontanum and then as I went to the right side of the prostate I encountered a capsule I opened up the capsule and antonio pus Started pouring out from the capsule I then unroofed the capsule completely and evacuated all the pus out of the the abscess pocket I then resected more the tissue proximal and distal to the abscess pocket in order to allow to drain into the bladder and into the prosthetic cavity and opened up unroofed the prostate abscess completely I then resected the left lobe of the prostate which was normal resected the apical tissue he had a nice open channel from the verumontanum into the bladder after resection was completed all the chips were Ellik out I obtained hemostasis and put a catheter in the bladder with continuous bladder irrigation and will keep in the hospital several days for his prostatic abscess. Type of Anesthesia:: General Drains: guillen - Admit VTE Documentation VTE Present on Admission: No VTE Mechan Device Prophylaxis: SCD's
[2020-01-01] MEDS: Ketorolac 15 MG/ML Vial IV (12:58)
--- NOTE | 2020-01-01 13:35 | SUR.PHASEI ---
1320 DR. FARIA BEDSIDE IN PACU. CBI NOTED TO BE CLOTTED OFF. ATTEMPTED TO BE FLUSHED PER DR. FARIA. FLUSHED CLOT OUT. CLOTTED OFF AGAIN. RANDOLPH CBI CHANGED TO RANDOLPH CATH. CBI DISCONTINUED.
--- NOTE | 2020-01-01 14:11 | SUR.PHASEI ---
1405 DR. FARIA BEDSIDE IRRIGATED RANDOLPH CATHETER IN PACU
[2020-01-01] MEDS: Ondansetron 4 MG/2 ML Vial IV (14:50)
[2020-01-01] MEDS: 0.9% Normal Saline 1,000 ML 75 ML IV (15:10)
[2020-01-01] MEDS: Acetaminophen 325 MG Tablet 650 MG PO (17:09)
[2020-01-01] MEDS: Tamsulosin HCl 0.4 MG Capsule PO (17:10)
[2020-01-01] MEDS: Ipratropium/Albuterol Sulfate 3 ML AMPUL.NEB INHALATION (18:58)
[2020-01-01] MEDS: Ciprofloxacin 400 MG/200 ML BAG 200 MG IV (21:15)
[2020-01-01] MEDS: HYDROcodone Bitartrate/Apap 5/325 Tablet PO (21:16)
[2020-01-01] MEDS: Docusate Sodium 100 MG Capsule PO (21:18)
[2020-01-01] MEDS: Finasteride 5 MG Tablet PO (21:19)
[2020-01-01] MEDS: Atorvastatin Calcium 40 MG Tablet PO (21:19)
[2020-01-02] VITALS (10 sets, daily range): BP systolic 110–134; BP diastolic 49–70; PULSE 68–83; RESP 16–20; TEMP 36.6–37.1; O2SAT 94–97; BMI 29.0
[2020-01-02] MEDS: 0.9% Normal Saline 1,000 ML 75 ML IV (05:24)
[2020-01-02] MEDS: HYDROcodone Bitartrate/Apap 5/325 Tablet PO ×2 (05:29→12:26)
[2020-01-02 06:02] LABS: Hematocrit 31.8 % (40-54); Hemoglobin 10.6 g/dL (13.0-16.5); Mean Corp Hgb Conc 33.3 g/dL (32-36); Mean Corpuscular Hgb 33.2 pg (27.0-32.0); Mean Corpuscular Volume 99.7 fL (80-94); Mean Platelet Vol. 8.8 fl (6.2-12.0); Platelet Count 243 K/mm3 (150-450); RBC Distribution Width CV 14.8 % (11.6-14.6); Red Blood Count 3.19 M/mm3 (4.6-6.2); White Blood Count 8.3 K/mm3 (4.4-11.0)
[2020-01-02 06:23] LABS: Anion Gap 4 (5-15); BUN 11 mg/dL (7-18); BUN/Creat Ratio 11.1 RATIO (10-20); Calcium,Total 7.8 mg/dL (8.5-10.1); Chloride 102 mmol/L (98-107); Creatinine, Serum 0.99 mg/dL (0.70-1.30); EST Glomerular Filtration Rate 80 mL/min (>60); Est Glom Filt Rate - Afr Amer 97 mL/min (>60); Estimated Creatinine Clearance 72.71 ml/min; Glucose 110 mg/dL (74-106); Potassium 3.8 mmol/L (3.5-5.1); Sodium Level 131 mmol/L (136-145)
[2020-01-02] MEDS: Ipratropium/Albuterol Sulfate 3 ML AMPUL.NEB INHALATION ×3 (06:54→19:04)
--- NOTE | 2020-01-02 08:37 | PN_ITS ---
Subjective: s/; turp for prostate abscess. - Physical Exam Vitals/I&O's: Vital Signs Temp Pulse Resp BP Pulse Ox 98.3 F 80 20 H 110/49 L 95 01/02/20 05:43 01/02/20 06:45 01/02/20 06:45 01/02/20 05:43 01/02/20 07:31 Oxygen Flow Rate (L/min) 2 Oxygen Delivery Method Nasal Cannula Weight: 91.8 kg Body Mass Index (BMI) 29.0 Intake and Output for Last 24 Hours 12/31/19 01/01/20 01/02/20 23:59 23:59 23:59 Intake Total 2436.67 / 2886.67 1700 / 1700 Output Total 900 / 900 500 / 500 Balance 1536.67 / 1986.67 1200 / 1200 General: Alert, Oriented x3, Cooperative HEENT: Atraumatic, PERRLA, EOMI, Normocephalic Neck: Supple, No JVD, Negative Carotid Bruits Lungs: Clear to auscultation, Normal air movement Cardiovascular: Regular rate, No murmurs Abdomen: Bowel Sounds Present, Soft, Non Tender Extremities: No edema, Capillary Refill Less than 3 Seconds Skin: No rashes, No breakdown Musculoskeletal: No Tenderness to Palpation of Joints or Extremities Neurological: Cranial nerves II-XII grossly intact Psych/Mental Status: Normal Affect, Appropriate Laboratory Results 01/01/20 09:26: POC PT 16.8 H, INR 1.40 01/01/20 09:40: PT 15.1 H, INR 1.2 01/02/20 05:52: WBC 8.3, RBC 3.19 L, Hgb 10.6 L, Hct 31.8 L, MCV 99.7 H, MCH 33.2 H, MCHC 33.3, RDW Std Deviation 54.0 H, RDW Coeff of Marcelle 14.8 H, Plt Count 243, MPV 8.8 01/02/20 05:52: Sodium 131 L, Potassium 3.8, Chloride 102, Carbon Dioxide 25.0, Anion Gap 4 L, BUN 11, Creatinine 0.99, Estim Creat Clear Calc 72.71, Est GFR (MDRD) Af Amer 97, Est GFR (MDRD) Non-Af 80, BUN/Creatinine Ratio 11.1, Glucose 110 H, Calcium 7.8 L Current Medications Acetaminophen (Tylenol) 650 mg PO Q6H PRN PRN PRN Reason: Pain Score 1-10/Temp > 100.7 F Last Admin: 01/01/20 17:09 Dose: 650 mg Documented by: Hydrocodone Bitart/Acetaminophen ([place] 5mg-325mg) 1 - 2 tablet PO Q6H PRN PRN PRN Reason: Pain Score 1-5/10 Last Admin: 01/02/20 05:29 Dose: 2 tablet Documented by: Al Hydroxide/Mg Hydroxide (Mylanta Ii) 30 ml PO Q4H PRN PRN PRN Reason: Heartburn Albuterol Sulfate (Ventolin Aerosols) 2.5 mg INHALATION Q4H PRN PRN Reason: shortness of breath or wheezin Albuterol/Ipratropium (Duoneb) 3 ml INHALATION Q6HWA.RT [facility] Last Admin: 01/02/20 06:54 Dose: 3 ml Documented by: Atorvastatin Calcium (Lipitor) 40 mg PO QHS [facility] Last Admin: 01/01/20 21:19 Dose: 40 mg Documented by: Belladonna Alkaloids/Opium (B & O) 60 mg RECTAL Q6H PRN PRN PRN Reason: Spasm Last Admin: 01/01/20 13:10 Dose: 60 mg Documented by: Benzonatate (Tessalon Perle) 200 mg PO QHS PRN PRN Reason: cough Calcium Carbonate (Os-Zackery 500) [facility] Docusate Sodium (Colace) 100 mg PO BID [facility] Last Admin: 01/01/20 21:18 Dose: 100 mg Documented by: Finasteride (Proscar) 5 mg PO QHS [facility] Last Admin: 01/01/20 21:19 Dose: 5 mg Documented by: Gabapentin (Neurontin) [facility] Last Admin: 01/01/20 17:17 Dose: Not Given Documented by: Hydrochlorothiazide (Hctz) 25 mg PO DAILY [facility] Lactated Ringer's () 1,000 mls @ 100 mls/hr IV .Q10H [facility] Last Infusion: 01/01/20 15:12 Dose: Infused Documented by: Sodium Chloride () 1,000 mls @ 75 mls/hr IV .[id number] [facility] Last Admin: 01/02/20 05:24 Dose: 75 mls/hr Documented by: Ciprofloxacin (Cipro) 400 mg in 200 mls @ 200 mls/hr IV Q12 [facility] Last Infusion: 01/01/20 22:47 Dose: Infused Documented by: Ibuprofen (Motrin) 600 mg PO Q6H PRN PRN PRN Reason: Pain Score 1-10/10 Ondansetron HCl (Zofran) 4 mg IV Q6H PRN PRN PRN Reason: Nausea Last Admin: 01/01/20 14:50 Dose: 4 mg Documented by: Oxycodone HCl (Oxyir) 5 mg PO Q4H PRN PRN PRN Reason: Pain Score 1-10/10 Pantoprazole Sodium (Protonix) 40 mg PO DAILY [facility] Polyethylene Glycol (Miralax) 17 gm PO DAILY [facility] Sodium Chloride () 10 - 40 ml IV UD PRN PRN Reason: SALINE FLUSH Tamsulosin HCl (Flomax) 0.4 mg PO DAILY@1730 [facility] Last Admin: 01/01/20 17:10 Dose: 0.4 mg Documented by: Tolterodine Tartrate (Detrol La) 4 mg PO DAILY PRN PRN PRN Reason: Spasms Medical Necessity - Tobacco Use Smoking Status: Former smoker Tobacco Use: Cigarettes Assessment/Plan All Active Problems (Last Reviewed 12/25/19 @ 12:[address] Matthew Arechiga MD) Gross hematuria (Acute) History of wisdom tooth extraction (Resolved) History of arthroscopy of left knee (Resolved) Status post hammer toe correction (Resolved) History of nasal polypectomy (Resolved) History of umbilical hernia repair (Resolved) Edema (Acute) Right foot operation after an accident (Resolved) Deep vein thrombosis (DVT) (Resolved) Urinary retention (Acute) Chest pain (Resolved) dyspnea (Acute) Acute right hip pain (Resolved) Atypical chest pain (Resolved) Chronic bronchitis (Resolved) Constipation (Resolved) Hand, foot and mouth disease (Resolved) PND (post-nasal drip) (Resolved) Sacroiliitis (Resolved) continue with guillen to gravity out of bed continue antibiotics.
[2020-01-02] MEDS: Ciprofloxacin 400 MG/200 ML BAG 200 MG IV ×2 (09:14→22:52)
[2020-01-02] MEDS: Pantoprazole Sodium 40 MG Tablet PO (09:15)
[2020-01-02] MEDS: Polyethylene Glycol 3350 17 GM PACKET PO (09:15)
[2020-01-02] MEDS: Gabapentin 300 MG Capsule PO ×2 (09:15→17:01)
[2020-01-02] MEDS: Docusate Sodium 100 MG Capsule PO ×2 (09:16→22:54)
[2020-01-02] MEDS: Calcium (Elemental) 500 MG Tablet PO (09:16)
[2020-01-02] MEDS: hydroCHLOROthiazide 25 MG Tablet PO (09:16)
--- NOTE | 2020-01-02 12:10 | CASEMGMT ---
TOREY VICKERS assessment: Face to Face with patient for initial transition planning/care coordination assessment. TOREY VICKERS introduced self and role at [facility], pt voices understanding and consents to assessment at this time. Pt is sitting up in bed in no distress at this time. Pt is A/Ox4 at this time and answers all questions appropriately at this time. Care providers, pharmacy, and demographics verified at this time. Presentation: Prostate abscess Admitting dx: Transurethral resection of prostate and unroofing of prostatic abscess PCP: Randy Specialists: Hawk, uro; Abhinav pulm; Marcia, cardio; Caroline, ortho in [place] Preferred Pharmacy: [facility] Insurance: [facility] A/B, AARP Prescription Benefit: [employer] Living Will/HPOA: Pt states has LW/HPOA and states that he brought in to be placed on chart this visit. Pt states that his , Taylor Lindquist, is HPOA. LNOK: Taylor Lindquist, Living Arrangements: Pt states lives with in 1 story home with couple steps to kitchen and states no concerns at home at this time. Transportation: Pt states drives self and states no transportation concerns at this time. DME/HHC: Pt states has the following DME but only uses occasionally: 3-4 canes, 2 sets crutches, walker, and grab bars. Pt states no hx of HHC or SNF in the past. Pt states no concerns with going home at time of discharge. Pt states is retired. Pt states smokes about 1/2pk cigarettes daily but is 'trying to quit.' Pt states drinks ETOH occasionally. Pt states no further concerns/needs at this time. CM to follow for any further discharge planning/needs. Advised pt to ask for CM if any further questions/concerns/needs arise, voices understanding. Pt Goal: Home Plan[place] TOREY VICKERS
[2020-01-02] MEDS: Tamsulosin HCl 0.4 MG Capsule PO (17:02)
[2020-01-02] MEDS: Atorvastatin Calcium 40 MG Tablet PO (22:54)
[2020-01-02] MEDS: Finasteride 5 MG Tablet PO (22:57)
[2020-01-03] VITALS (8 sets, daily range): BP systolic 110–133; BP diastolic 43–74; PULSE 53–89; RESP 17–20; TEMP 36.2–37.2; O2SAT 94–97
[2020-01-03] MEDS: Ibuprofen 600 MG Tablet PO (03:42)
[2020-01-03] MEDS: HYDROcodone Bitartrate/Apap 5/325 Tablet PO ×3 (04:35→20:14)
[2020-01-03] MEDS: 0.9% Normal Saline 1,000 ML 50 ML IV (06:00)
[2020-01-03] MEDS: Calcium (Elemental) 500 MG Tablet PO (07:34)
[2020-01-03] MEDS: Gabapentin 300 MG Capsule PO ×2 (07:35→17:14)
[2020-01-03] MEDS: Ciprofloxacin 400 MG/200 ML BAG 200 MG IV ×2 (09:13→21:29)
[2020-01-03] MEDS: Pantoprazole Sodium 40 MG Tablet PO (10:19)
[2020-01-03] MEDS: hydroCHLOROthiazide 25 MG Tablet PO (10:20)
--- NOTE | 2020-01-03 10:52 | PCM.PROGNOTE ---
Subjective: s/p tur prostate abcess prior cx ecoli no cbi with gravity 20 fr guillen nurses will flush as needed - Physical Exam Vitals/I&O's: Vital Signs Temp Pulse Resp BP Pulse Ox 98.9 F 62 18 110/44 L 94 01/03/20 02:08 01/03/20 02:08 01/03/20 02:08 01/03/20 02:08 01/03/20 02:08 Oxygen Flow Rate (L/min) 2 Oxygen Delivery Method Room Air Weight: 91.8 kg Body Mass Index (BMI) 29.0 Intake and Output for Last 24 Hours 01/01/20 01/02/20 01/03/20 23:59 23:59 23:59 Intake Total 2436.67 / 2886.67 4495 / 4695 1305 / 1305 Output Total 900 / 900 2300 / 3275 1425 / 1425 Balance 1536.67 / 1986.67 2195 / 1420 -120 / -120 Current Medications Acetaminophen (Tylenol) 650 mg PO Q6H PRN PRN PRN Reason: Pain Score 1-10/Temp > 100.7 F Last Admin: 01/01/20 17:09 Dose: 650 mg Documented by: Hydrocodone Bitart/Acetaminophen ([place] 5mg-325mg) 1 - 2 tablet PO Q6H PRN PRN PRN Reason: Pain Score 1-5/10 Last Admin: 01/03/20 10:18 Dose: 2 tablet Documented by: Al Hydroxide/Mg Hydroxide (Mylanta Ii) 30 ml PO Q4H PRN PRN PRN Reason: Heartburn Albuterol Sulfate (Ventolin Aerosols) 2.5 mg INHALATION Q4H PRN PRN Reason: shortness of breath or wheezin Albuterol/Ipratropium (Duoneb) 3 ml INHALATION Q6HWA.RT [facility] Last Admin: 01/03/20 07:40 Dose: Not Given Documented by: Atorvastatin Calcium (Lipitor) 40 mg PO QHS [facility] Last Admin: 01/02/20 22:54 Dose: 40 mg Documented by: Belladonna Alkaloids/Opium (B & O) 60 mg RECTAL Q6H PRN PRN PRN Reason: Spasm Last Admin: 01/03/20 03:42 Dose: 60 mg Documented by: Benzonatate (Tessalon Perle) 200 mg PO QHS PRN PRN Reason: cough Calcium Carbonate (Os-Zackery 500) [facility] Last Admin: 01/03/20 07:34 Dose: 500 mg Documented by: Docusate Sodium (Colace) 100 mg PO BID [facility] Last Admin: 01/03/20 10:20 Dose: Not Given Documented by: Finasteride (Proscar) 5 mg PO QHS [facility] Last Admin: 01/02/20 22:57 Dose: 5 mg Documented by: Gabapentin (Neurontin) [facility] Last Admin: 01/03/20 07:35 Dose: 300 mg Documented by: Hydrochlorothiazide (Hctz) 25 mg PO DAILY [facility] Last Admin: 01/03/20 10:20 Dose: 25 mg Documented by: Sodium Chloride () 1,000 mls @ 50 mls/hr IV .Q20H [facility] Last Admin: 01/03/20 06:00 Dose: 50 mls/hr Documented by: Ciprofloxacin (Cipro) 400 mg in 200 mls @ 200 mls/hr IV Q12 [facility] Last Admin: 01/03/20 09:13 Dose: 200 mls/hr Documented by: Ibuprofen (Motrin) 600 mg PO Q6H PRN PRN PRN Reason: Pain Score 1-10/10 Last Admin: 01/03/20 03:42 Dose: 600 mg Documented by: Ondansetron HCl (Zofran) 4 mg IV Q6H PRN PRN PRN Reason: Nausea Last Admin: 01/01/20 14:50 Dose: 4 mg Documented by: Oxycodone HCl (Oxyir) 5 mg PO Q4H PRN PRN PRN Reason: Pain Score 1-10/10 Pantoprazole Sodium (Protonix) 40 mg PO DAILY [facility] Last Admin: 01/03/20 10:19 Dose: 40 mg Documented by: Polyethylene Glycol (Miralax) 17 gm PO DAILY [facility] Last Admin: 01/03/20 10:20 Dose: Not Given Documented by: Sodium Chloride () 10 - 40 ml IV UD PRN PRN Reason: SALINE FLUSH Tamsulosin HCl (Flomax) 0.4 mg PO DAILY@1730 [facility] Last Admin: 01/02/20 17:02 Dose: 0.4 mg Documented by: Tolterodine Tartrate (Detrol La) 4 mg PO DAILY PRN PRN PRN Reason: Spasms Medical Necessity - Tobacco Use Smoking Status: Former smoker Tobacco Use: Cigarettes Assessment/Plan All Active Problems (Last Reviewed 12/25/19 @ 12:[address] Matthew Arechiga MD) Gross hematuria (Acute) History of wisdom tooth extraction (Resolved) History of arthroscopy of left knee (Resolved) Status post hammer toe correction (Resolved) History of nasal polypectomy (Resolved) History of umbilical hernia repair (Resolved) Edema (Acute) Right foot operation after an accident (Resolved) Deep vein thrombosis (DVT) (Resolved) Urinary retention (Acute) Chest pain (Resolved) dyspnea (Acute) Acute right hip pain (Resolved) Atypical chest pain (Resolved) Chronic bronchitis (Resolved) Constipation (Resolved) Hand, foot and mouth disease (Resolved) PND (post-nasal drip) (Resolved) Sacroiliitis (Resolved) continue wiht antibiotic continue cath flush prn
[2020-01-03] MEDS: Ipratropium/Albuterol Sulfate 3 ML AMPUL.NEB INHALATION ×2 (13:08→19:21)
[2020-01-03] MEDS: Tamsulosin HCl 0.4 MG Capsule PO (17:14)
[2020-01-03] MEDS: Docusate Sodium 100 MG Capsule PO (21:31)
[2020-01-03] MEDS: Atorvastatin Calcium 40 MG Tablet PO (21:31)
[2020-01-03] MEDS: Finasteride 5 MG Tablet PO (21:33)
[2020-01-04] VITALS (7 sets, daily range): BP systolic 98–137; BP diastolic 45–63; PULSE 56–87; RESP 15–22; TEMP 36.4–36.8; O2SAT 96–100
[2020-01-04] MEDS: Tolterodine Tartrate 4 MG CAP.SA PO (00:29)
[2020-01-04] MEDS: HYDROcodone Bitartrate/Apap 5/325 Tablet PO ×2 (02:46→21:33)
[2020-01-04] MEDS: 0.9% Normal Saline 1,000 ML 50 ML IV (02:57)
--- NOTE | 2020-01-04 03:51 | NURSING ---
Addendum entered by Judith Art 01/04/20 03:52: Patient ambulated one lap around unit. Original Note: Patient ambulated in hallway independently with walker.
[2020-01-04] MEDS: Ipratropium/Albuterol Sulfate 3 ML AMPUL.NEB INHALATION ×3 (06:59→19:50)
--- NOTE | 2020-01-04 07:26 | PCM.PROGNOTE ---
Subjective: Postoperative day #3 status post transurethral resection of a prostatic abscess. Not surprisingly the patient had a lot of pain and discomfort with a catheter given his prostate abscess also we did have to change the catheter in the PACU because it was clogged with a clot. Since then he has been with a 20 [place] catheter nurses have been irrigating as necessary. Finally today the urine is clear with no clots draining well. His pain is getting better. We can use Teller, BNO suppositories and IV Toradol for pain control hopefully this will help with his pain control has been very tender given his prostate abscess. - Physical Exam Vitals/I&O's: Vital Signs Temp Pulse Resp BP Pulse Ox 98.1 F 60 22 H 115/49 L 96 01/04/20 02:52 01/04/20 02:52 01/04/20 02:52 01/04/20 02:52 01/04/20 02:52 Oxygen Flow Rate (L/min) 2 Oxygen Delivery Method Room Air Weight: 91.8 kg Body Mass Index (BMI) 29.0 Intake and Output for Last 24 Hours 01/02/20 01/03/20 01/04/20 23:59 23:59 23:59 Intake Total 4495 / 4695 3855 / 4855 2850 / 2850 Output Total 2300 / 3275 5870 / 6320 1300 / 1300 Balance 2195 / 1420 -2014 / 1465 1550 / 1550 General: Alert, Oriented x3, Cooperative HEENT: Atraumatic, PERRLA, EOMI, Normocephalic Neck: Supple, No JVD, Negative Carotid Bruits Lungs: Clear to auscultation, Normal air movement Cardiovascular: Regular rate, No murmurs Abdomen: Bowel Sounds Present, Soft, Non Tender Extremities: No edema, Capillary Refill Less than 3 Seconds Skin: No rashes, No breakdown Musculoskeletal: No Tenderness to Palpation of Joints or Extremities Neurological: Cranial nerves II-XII grossly intact Psych/Mental Status: Normal Affect, Appropriate Current Medications Acetaminophen (Tylenol) 650 mg PO Q6H PRN PRN PRN Reason: Pain Score 1-10/Temp > 100.7 F Last Admin: 01/01/20 17:09 Dose: 650 mg Documented by: Hydrocodone Bitart/Acetaminophen ([place] 5mg-325mg) 1 - 2 tablet PO Q6H PRN PRN PRN Reason: Pain Score 1-5/10 Last Admin: 01/04/20 02:46 Dose: 2 tablet Documented by: Al Hydroxide/Mg Hydroxide (Mylanta Ii) 30 ml PO Q4H PRN PRN PRN Reason: Heartburn Albuterol Sulfate (Ventolin Aerosols) 2.5 mg INHALATION Q4H PRN PRN Reason: shortness of breath or wheezin Albuterol/Ipratropium (Duoneb) 3 ml INHALATION Q6HWA.RT [facility] Last Admin: 01/04/20 06:59 Dose: 3 ml Documented by: Atorvastatin Calcium (Lipitor) 40 mg PO QHS [facility] Last Admin: 01/03/20 21:31 Dose: 40 mg Documented by: Belladonna Alkaloids/Opium (B & O) 60 mg RECTAL Q6H PRN PRN PRN Reason: Spasm Last Admin: 01/04/20 02:46 Dose: 60 mg Documented by: Benzonatate (Tessalon Perle) 200 mg PO QHS PRN PRN Reason: cough Calcium Carbonate (Os-Zackery 500) [facility] Last Admin: 01/03/20 07:34 Dose: 500 mg Documented by: Docusate Sodium (Colace) 100 mg PO BID [facility] Last Admin: 01/03/20 21:31 Dose: 100 mg Documented by: Gabapentin ([facility]urontin) [facility] Last Admin: 01/03/20 17:14 Dose: 300 mg Documented by: Hydrochlorothiazide (Hctz) 25 mg PO DAILY [facility] Last Admin: 01/03/20 10:20 Dose: 25 mg Documented by: Sodium Chloride () 1,000 mls @ 50 mls/hr IV .Q20H [facility] Last Admin: 01/04/20 02:57 Dose: 50 mls/hr Documented by: Ciprofloxacin (Cipro) 400 mg in 200 mls @ 200 mls/hr IV Q12 [facility] Last Infusion: 01/04/20 00:18 Dose: Infused Documented by: Ondansetron HCl (Zofran) 4 mg IV Q6H PRN PRN PRN Reason: Nausea Last Admin: 01/01/20 14:50 Dose: 4 mg Documented by: Pantoprazole Sodium (Protonix) 40 mg PO DAILY [facility] Last Admin: 01/03/20 10:19 Dose: 40 mg Documented by: Polyethylene Glycol (Miralax) 17 gm PO DAILY [facility] Last Admin: 01/03/20 10:20 Dose: Not Given Documented by: Sodium Chloride () 10 - 40 ml IV UD PRN PRN Reason: SALINE FLUSH Tamsulosin HCl (Flomax) 0.4 mg PO DAILY@1730 [facility] Last Admin: 01/03/20 17:14 Dose: 0.4 mg Documented by: Tolterodine Tartrate (Detrol La) 4 mg PO DAILY PRN PRN PRN Reason: Spasms Last Admin: 01/04/20 00:29 Dose: 4 mg Documented by: Medical Necessity - Tobacco Use Smoking Status: Former smoker Tobacco Use: Cigarettes Assessment/Plan All Active Problems (Last Reviewed 12/25/19 @ 12:[address] Matthew Arechiga MD) Gross hematuria (Acute) History of wisdom tooth extraction (Resolved) History of arthroscopy of left knee (Resolved) Status post hammer toe correction (Resolved) History of nasal polypectomy (Resolved) History of umbilical hernia repair (Resolved) Edema (Acute) Right foot operation after an accident (Resolved) Deep vein thrombosis (DVT) (Resolved) Urinary retention (Acute) Chest pain (Resolved) dyspnea (Acute) Acute right hip pain (Resolved) Atypical chest pain (Resolved) Chronic bronchitis (Resolved) Constipation (Resolved) Hand, foot and mouth disease (Resolved) PND (post-nasal drip) (Resolved) Sacroiliitis (Resolved) Postop day #3 status post transurethral resection of prostatic abscess doing better urine is clear I think today we will get him out of bed tomorrow we will remove the catheter for voiding trial.
[2020-01-04] MEDS: Pantoprazole Sodium 40 MG Tablet PO (09:39)
[2020-01-04] MEDS: hydroCHLOROthiazide 25 MG Tablet PO (09:39)
[2020-01-04] MEDS: Docusate Sodium 100 MG Capsule PO ×2 (09:39→21:20)
[2020-01-04] MEDS: Gabapentin 300 MG Capsule PO ×2 (09:39→17:51)
[2020-01-04] MEDS: Ciprofloxacin 400 MG/200 ML BAG 200 MG IV ×2 (09:39→21:14)
[2020-01-04] MEDS: Calcium (Elemental) 500 MG Tablet PO (09:39)
[2020-01-04] MEDS: Polyethylene Glycol 3350 17 GM PACKET PO (09:39)
--- NOTE | 2020-01-04 11:27 | CON.PCM_ITS ---
Problem List (1) Gross hematuria Status: Acute (2) History of wisdom tooth extraction Status: Resolved (3) History of arthroscopy of left knee Status: Resolved (4) Status post hammer toe correction Status: Resolved (5) History of nasal polypectomy Status: Resolved (6) History of umbilical hernia repair Status: Resolved (7) Aortic stenosis Status: Chronic Qualifiers: Cardiac valve disease etiology: etiology unspecified Qualified Code(s): I35.0 - Nonrheumatic aortic (valve) stenosis (8) COPD (chronic obstructive pulmonary disease) Status: Chronic Qualifiers: COPD type: chronic bronchitis Chronic bronchitis type: mucopurulent Qualified Code(s): J41.1 - Mucopurulent chronic bronchitis (9) Right foot operation after an accident Status: Resolved (10) 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 reflux disease) Status: Chronic (11) USP current use of 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 Status: Chronic (12) Intermittent claudication Status: Chronic (13) LIZA (obstructive sleep apnea) Status: Chronic (14) Hyperlipidemia Status: Chronic Qualifiers: Hyperlipidemia type: unspecified Qualified Code(s): E78.5 - Hyperlipidemia, unspecified (15) Peripheral neuropathy Status: Chronic (16) Obesity Status: Chronic (17) BPH (benign prostatic hyperplasia) Status: Chronic Qualifiers: Lower urinary tract symptom presence: symptoms present Lower urinary tract symptom detail: urinary frequency Qualified Code(s): N40.1 - Benign prostatic hyperplasia with lower urinary tract symptoms; R35.0 - Frequency of micturition Reason for Consult Date of Consultation: 01/04/20 Reason for Consultation: Chronic cough History of Present Illness: The patient is a 69 year old M, with past medical history listed below and well- known to me from the outpatient office, who presented to [facility] on 01/01/2020 secondary to a urinary tract infection with a 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 Patient has been having some fevers and a chronic cough. This was investigated by CAT scan showing significant narrowing of the urethra. There was some concern for possible prostate cancer versus abscess versus diverticulum, so patient was being seen for cystoscopy with transurethral resection of the prostate. Patient underwent surgery on 01/01/2020 and tolerated well. Patient was noted to have antonio pus from the capsule. Postoperative course has been complicated by some hematuria. Patient has been reporting a dry cough along with fevers and there was some concern for possible respiratory infection. A pulmonary consult was obtained to see if further testing would be warranted. Patient reports he has been having a dry cough for about 3 weeks. Patient had been seen by his primary care physician and was placed on Tessalon Perles. Patient states that he feels it may have improved a little bit over the last 24 hours. Patient had reported fevers at home, but states he has had a significant improvement in his overall health in the last 24 hours. Patient woke up overnight with significant pelvic pain, but is not having any issues saturating. Patient states the cough is been productive of his baseline sputum. Patient denies any hemoptysis during this episode. Patient has not had any chest pain. Patient has been requiring bladder irrigations, which he states significantly helps his discomfort. Review of systems otherwise negative from a constitutional, HEENT, respiratory, cardiovascular, GI, genitourinary, musculoskeletal, skin, neurologic, psychiatric and hematologic system unless stated above. Past Medical History Past Medical History (Chronic Problems): Chronic Problems (Last Reviewed 12/25/19 @ 12:[address] 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) I82.402 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 reflux disease) (Chronic) K21.9 USP current use of 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 (Chronic) Z79.01 Deep vein thrombosis (DVT) (Resolved) I82.409 Skin lesion (Chronic) L98.9 Intermittent claudication (Chronic) I73.9 Chest pain (Resolved) R07.9 COPD (chronic obstructive pulmonary disease) (Chronic) J44.9 LIZA (obstructive sleep apnea) (Chronic) G47.33 Tobacco abuse (Chronic) Z72.0 Hyperlipidemia (Chronic) E78.5 Peripheral neuropathy (Chronic) G62.9 Obesity (Chronic) E66.9 Carotid artery stenosis (Chronic) I65.29 Hypertension (Chronic) I10 SOB (shortness of breath) (Chronic) R06.02 Acute sinusitis J01.90 Bronchitis J40 Cough R05 Dyspnea R06.00 History of blood clots Z86.718 Wheezing R06.2 Allergies Iodinated Contrast Media [Iodinated Contrast Media - IV Dye] Allergy (Verified 01/01/20 09:24) Unknown per patient unsure of reaction had facet spinal block about 15 years ago and per patient his surgeon said to torey iv contrast as allergy. patient was premedicated with 13-hour prep with prednisone before CT of chest with IV contrast on 07/13/2018, no reaction noted after CT. oxycodone Adverse Reaction (Verified 01/01/20 09:24) Other 'OFF THE WALL' Home Medications: Ambulatory Orders Medication Instructions Recorded tamsulosin 0.4 mg capsule 0.4 mg PO DAILY@1730 #90 cap 12/09/18 rosuvastatin 20 mg tablet 20 mg PO DAILY #90 tab 05/07/19 calcium carbonate 600 mg calcium 600 mg PO DAILY 08/24/19 (1,500 mg) tablet hydrochlorothiazide 25 mg tablet 25 mg PO QDAY #90 tab 08/28/19 gabapentin 300 mg capsule 300 mg PO BID 90 Days #180 cap 12/07/19 albuterol sulfate 90 mcg/actuation 2 puff INHALATION Q6H PRN #8.5 g 12/15/19 aerosol inhaler benzonatate 100 mg capsule 200 mg PO QHS PRN #90 cap 12/15/19 Finasteride 5 mg PO QHS 12/24/19 Acetaminophen [Tylenol Tablet] 650 mg PO Q6H PRN PRN tab 12/27/19 Ciprofloxacin [Cipro] 500 mg PO BID #48 tab 12/27/19 Glycopyrrolate/Formoterol Fum 2 puff INHALATION BID 12/30/19 [Bevespi Aerosphere Inhaler] Polyethylene Glycol 3350 [Miralax] 17 gm PO DAILY 12/30/19 Ciprofloxacin [Cipro] 500 mg PO BID #14 tab 01/01/20 Oxycodone HCl/Acetaminophen 1 tab PO Q4H PRN PRN 5 Days #14 tab 01/01/20 [Percocet 5/325] Surgical History: Surgical History (Last Reviewed 12/24/19 @ 09:33 by Gerda Sanchez) History of wisdom tooth extraction (Resolved) K08.409 History of arthroscopy of left knee (Resolved) Z98.890 Status post hammer toe correction (Resolved) Z98.890, Z87.39 History of nasal polypectomy (Resolved) Z98.890, Z87.09 History of umbilical hernia repair (Resolved) Z98.890, Z87.19 Right foot operation after an accident (Resolved) History of back surgery Z98.890 07/06/2018, microdiscectomy, L2-L3 right. Surgical History: herniorrhaphy, - - Hammertoe Psychiatric History: No pertinent psych hx Smoking Status: Former smoker Tobacco Use: Cigarettes Review of Systems Comment: See HPI Objective: Patient has not had any chest imaging during this hospitalization. Patient did recently have a pulmonary function test dated 10/19/2019 showing a moderate large airways obstructive ventilatory defect with preserved diffusion capacity, but no significant change since April of last year. Patient had a heart catheterization completed last year showing an EF of 55% and only mild luminal irregularities. No significant aortic valve stenosis was noted at that time. - Physical Exam Vitals/I&O's: Vital Signs Temp Pulse Resp BP Pulse Ox 36.4 C L 70 16 115/58 L 97 01/04/20 08:45 01/04/20 08:45 01/04/20 08:45 01/04/20 08:45 01/04/20 08:45 Oxygen Flow Rate (L/min) 2 Oxygen Delivery Method Room Air Weight: 91.8 kg Body Mass Index (BMI) 29.0 Intake and Output for Last 24 Hours 01/02/20 01/03/20 01/04/20 23:59 23:59 23:59 Intake Total 4495 / 4695 3855 / 4855 3385.83 / 3385.83 Output Total 2300 / 3275 5870 / 6320 1300 / 1300 Balance 2195 / 1420 -2014 / 1465 2085.83 / 2085.83 General: Alert, Oriented x3, Cooperative, No apparent distress, Well developed, Well nourished, - - No conversational dyspnea HEENT: Atraumatic, PERRLA, EOMI, Normocephalic, - - No scleral icterus or injection noted Oral: Moist Mucosa, No Gingival or Mucosal Lesions/ Ulcerations Neck: Supple, No JVD, No Nodes, Trachea Midline Lungs: No rhonchi, No rales, Diminished, Wheezes - Mild end expiratory wheezing Cardiovascular: Regular rate, Regular Rhythm, Normal S1, Normal S2, No murmurs, No rub noted, No Gallop Abdomen: Bowel Sounds Present, Soft, Non Tender, Non-Distended, - - James draining pale yellow urine Extremities: No clubbing, No cyanosis, No edema, Capillary Refill Less than 3 Seconds Skin: No rashes, No breakdown Musculoskeletal: No Tenderness to Palpation of Joints or Extremities Lymphatic: No Cervical, Supraclavicular, or Inguinal Adenopathy Neurological: Cranial nerves II-XII grossly intact, Neuro grossly intact, Motor Exam 5/5 strength throughout Psych/Mental Status: Alert and oriented to time, place, person, mood and affect Current Medications Acetaminophen (Tylenol) 650 mg PO Q6H PRN PRN PRN Reason: Pain Score 1-10/Temp > 100.7 F Last Admin: 01/01/20 17:09 Dose: 650 mg Documented by: Hydrocodone Bitart/Acetaminophen ([place] 5mg-325mg) 1 - 2 tablet PO Q6H PRN PRN PRN Reason: Pain Score 1-5/10 Last Admin: 01/04/20 02:46 Dose: 2 tablet Documented by: Al Hydroxide/Mg Hydroxide (Mylanta Ii) 30 ml PO Q4H PRN PRN PRN Reason: Heartburn Albuterol Sulfate (Ventolin Aerosols) 2.5 mg INHALATION Q4H PRN PRN Reason: shortness of breath or wheezin Albuterol/Ipratropium (Duoneb) 3 ml INHALATION Q6HWA.RT [facility] Last Admin: 01/04/20 06:59 Dose: 3 ml Documented by: Atorvastatin Calcium (Lipitor) 40 mg PO QHS [facility] Last Admin: 01/03/20 21:31 Dose: 40 mg Documented by: Belladonna Alkaloids/Opium (B & O) 60 mg RECTAL Q6H PRN PRN PRN Reason: Spasm Last Admin: 01/04/20 02:46 Dose: 60 mg Documented by: Benzonatate (Tessalon Perle) 200 mg PO QHS PRN PRN Reason: cough Budesonide (Pulmicort Aerosol) 0.5 mg INHALATION BID.RT [facility] Calcium Carbonate (Os-Zackery 500) [facility] Last Admin: 01/04/20 09:39 Dose: 500 mg Documented by: Docusate Sodium (Colace) 100 mg PO BID [facility] Last Admin: 01/04/20 09:39 Dose: 100 mg Documented by: Gabapentin (Neurontin) [facility] Last Admin: 01/04/20 09:39 Dose: 300 mg Documented by: Hydrochlorothiazide (Hctz) 25 mg PO DAILY [facility] Last Admin: 01/04/20 09:39 Dose: 25 mg Documented by: Sodium Chloride () 1,000 mls @ 50 mls/hr IV .Q20H [facility] Last Infusion: 01/04/20 10:40 Dose: 50 mls/hr Documented by: Ciprofloxacin (Cipro) 400 mg in 200 mls @ 200 mls/hr IV Q12 [facility] Last Infusion: 01/04/20 10:40 Dose: Infused Documented by: Ketorolac Tromethamine (Toradol (Bkc)) 15 mg IV Q6H PRN PRN PRN Reason: Pain Score 1-10/10 Stop: 01/09/20 07:25 Ondansetron HCl (Zofran) 4 mg IV Q6H PRN PRN PRN Reason: Nausea Last Admin: 01/01/20 14:50 Dose: 4 mg Documented by: Pantoprazole Sodium (Protonix) 40 mg PO DAILY [facility] Last Admin: 01/04/20 09:39 Dose: 40 mg Documented by: Polyethylene Glycol (Miralax) 17 gm PO DAILY [facility] Last Admin: 01/04/20 09:39 Dose: 17 gm Documented by: Sodium Chloride () 10 - 40 ml IV UD PRN PRN Reason: SALINE FLUSH Tamsulosin HCl (Flomax) 0.4 mg PO DAILY@1730 [facility] Last Admin: 01/03/20 17:14 Dose: 0.4 mg Documented by: Tolterodine Tartrate (Detrol La) 4 mg PO DAILY PRN PRN PRN Reason: Spasms Last Admin: 01/04/20 00:29 Dose: 4 mg Documented by: Assessment/Plan All Active Problems (Last Reviewed 12/25/19 @ 12:[address] Matthew Arechiga MD) Gross hematuria (Acute) History of wisdom tooth extraction (Resolved) History of arthroscopy of left knee (Resolved) Status post hammer toe correction (Resolved) History of nasal polypectomy (Resolved) History of umbilical hernia repair (Resolved) Edema (Acute) Right foot operation after an accident (Resolved) Deep vein thrombosis (DVT) (Resolved) Urinary retention (Acute) Chest pain (Resolved) dyspnea (Acute) Acute right hip pain (Resolved) Atypical chest pain (Resolved) Chronic bronchitis (Resolved) Constipation (Resolved) Hand, foot and mouth disease (Resolved) PND (post-nasal drip) (Resolved) Sacroiliitis (Resolved) RECOMMENDATIONS: 1. Initiate Pulmicort 2. Continue baseline bronchodilators 3. Continue antibiotic and James management per urology 4. No inpatient pulmonary testing would be indicated IMPRESSIONS: 1. Chronic cough/COPD Patient does have end expiratory wheezing on exam, but does not appear to be in an acute exacerbation. Given patient's prosthetic abscess, systemic steroids would be relatively contraindicated. Patient has not shown significant asthma difficulties in the past. Will place patient on Pulmicort therapy. Patient may have an element of increased airway inflammation secondary to his prostate abscess and this should improve with continued therapy. Patient does not appear to be in congestive heart failure clinically and heart catheterization was not suggestive of this as an etiology. Would not recommend any repeat echocardiogram or BNP at this time. Reasonable to continue baseline bronchodilator therapy. Would not recommend any inpatient pulmonary testing at this time. 2. Prostate abscess Management per urology. Patient appears to be responding well to therapy. Patient is on appropriate antibiotics from my perspective. No hemodynamic instability has been reported. Defer James management to urology. 3. Multiple surgeries/history of DVT/LIZA/hyperlipidemia/peripheral neuropathy/BPH Complicates care, management, recovery and prognosis. Patient can continue with his baseline LIZA therapy. Okay to continue with baseline medications from my perspective. Patient has already completed anticoagulation for previous DVT, but would recommend out of bed as tolerated and SCDs given relative immobility. Inpatient E&M: 96339 Init Hosp L2
[2020-01-04] MEDS: Ketorolac 15 MG/ML Vial IV (11:33)
[2020-01-04] MEDS: 0.9% Saline Lock 10 ML Syringe IV ×2 (11:33→22:42)
[2020-01-04] MEDS: Tamsulosin HCl 0.4 MG Capsule PO (17:51)
[2020-01-04] MEDS: Budesonide Respules 0.5 MG/2 ML AMPUL.NEB. INHALATION (19:50)
[2020-01-04] MEDS: Atorvastatin Calcium 40 MG Tablet PO (21:20)
[2020-01-05] VITALS (7 sets, daily range): BP systolic 109–122; BP diastolic 44–68; PULSE 52–70; RESP 16–18; TEMP 36.3–36.7; O2SAT 98–99
[2020-01-05] MEDS: HYDROcodone Bitartrate/Apap 5/325 Tablet PO ×3 (03:30→18:05)
[2020-01-05] MEDS: Tolterodine Tartrate 4 MG CAP.SA PO ×2 (06:45→08:38)
--- NOTE | 2020-01-05 06:51 | PCM.PN.PUL ---
Subjective: Patient did okay from a respiratory standpoint overnight. Significant pain has been reported. This is not significantly changed in character, but has been unrelenting. Patient believes his cough is improved, but states that all he can think about is the pain. - Physical Exam Vitals/I&O's: Vital Signs Temp Pulse Resp BP Pulse Ox 36.7 C 52 L 18 114/59 L 99 01/05/20 02:00 01/05/20 02:00 01/05/20 02:00 01/05/20 02:00 01/05/20 02:00 Oxygen Flow Rate (L/min) 2 Oxygen Delivery Method Room Air Weight: 91.8 kg Body Mass Index (BMI) 29.0 Intake and Output for Last 24 Hours 01/03/20 01/04/20 01/05/20 23:59 23:59 23:59 Intake Total 3855 / 4855 5788.75 / 5788.75 300 / 300 Output Total 5870 / 6320 2600 / 2600 500 / 500 Balance -2015 / -1465 3188.75 / 3188.75 -200 / -200 General: Alert, Oriented x3, Cooperative, - - Moderate distress secondary to pelvic pain HEENT: Atraumatic, PERRLA, EOMI, Normocephalic, - - No scleral icterus or injection Oral: Moist Mucosa, No Gingival or Mucosal Lesions/ Ulcerations Neck: Supple, No JVD, No Nodes, Trachea Midline Lungs: No rhonchi, No rales, Diminished, Wheezes - At end exhalation, - - Symmetric expansion Cardiovascular: Regular rate, Regular Rhythm, Normal S1, Normal S2, No murmurs, No rub noted, No Gallop Abdomen: Bowel Sounds Present, Soft, Non Tender, Non-Distended, - - James catheter in place with yellow urine noted. Extremities: No clubbing, No cyanosis, No edema, Capillary Refill Less than 3 Seconds Skin: No rashes, No breakdown Musculoskeletal: No Tenderness to Palpation of Joints or Extremities Lymphatic: No Cervical, Supraclavicular, or Inguinal Adenopathy Neurological: Cranial nerves II-XII grossly intact, Neuro grossly intact, Motor Exam 5/5 strength throughout Psych/Mental Status: Anxious, Restless Current Medications Acetaminophen (Tylenol) 650 mg PO Q6H PRN PRN PRN Reason: Pain Score 1-10/Temp > 100.7 F Last Admin: 01/01/20 17:09 Dose: 650 mg Documented by: Hydrocodone Bitart/Acetaminophen ([place] 5mg-325mg) 1 - 2 tablet PO Q6H PRN PRN PRN Reason: Pain Score 1-5/10 Last Admin: 01/05/20 03:30 Dose: 2 tablet Documented by: Al Hydroxide/Mg Hydroxide (Mylanta Ii) 30 ml PO Q4H PRN PRN PRN Reason: Heartburn Albuterol Sulfate (Ventolin Aerosols) 2.5 mg INHALATION Q4H PRN PRN Reason: shortness of breath or wheezin Albuterol/Ipratropium (Duoneb) 3 ml INHALATION Q6HWA.RT [facility] Last Admin: 01/04/20 19:50 Dose: 3 ml Documented by: Atorvastatin Calcium (Lipitor) 40 mg PO QHS [facility] Last Admin: 01/04/20 21:20 Dose: 40 mg Documented by: Belladonna Alkaloids/Opium (B & O) 60 mg RECTAL Q6H PRN PRN PRN Reason: Spasm Last Admin: 01/05/20 01:14 Dose: 60 mg Documented by: Benzonatate (Tessalon Perle) 200 mg PO QHS PRN PRN Reason: cough Budesonide (Pulmicort Aerosol) 0.5 mg INHALATION BID.RT [facility] Last Admin: 01/04/20 19:50 Dose: 0.5 mg Documented by: Calcium Carbonate (Os-Zackery 500) [facility] Last Admin: 01/04/20 09:39 Dose: 500 mg Documented by: Docusate Sodium (Colace) 100 mg PO BID [facility] Last Admin: 01/04/20 21:20 Dose: 100 mg Documented by: Gabapentin ([facility]urontin) [facility] Last Admin: 01/04/20 17:51 Dose: 300 mg Documented by: Hydrochlorothiazide (Hctz) 25 mg PO DAILY [facility] Last Admin: 01/04/20 09:39 Dose: 25 mg Documented by: Ciprofloxacin (Cipro) 400 mg in 200 mls @ 200 mls/hr IV Q12 [facility] Last Infusion: 01/04/20 22:14 Dose: Infused Documented by: Ketorolac Tromethamine (Toradol (Bkc)) 15 mg IV Q6H PRN PRN PRN Reason: Pain Score 1-1010 Stop: 01/09/20 07:25 Last Admin: 01/04/20 11:33 Dose: 15 mg Documented by: Ondansetron HCl (Zofran) 4 mg IV Q6H PRN PRN PRN Reason: Nausea Last Admin: 01/01/20 14:50 Dose: 4 mg Documented by: Pantoprazole Sodium (Protonix) 40 mg PO DAILY [facility] Last Admin: 01/04/20 09:39 Dose: 40 mg Documented by: Polyethylene Glycol (Miralax) 17 gm PO DAILY [facility] Last Admin: 01/04/20 09:39 Dose: 17 gm Documented by: Sodium Chloride () 10 - 40 ml IV UD PRN PRN Reason: SALINE FLUSH Last Admin: 01/04/20 22:42 Dose: 10 ml Documented by: Tamsulosin HCl (Flomax) 0.4 mg PO DAILY@1730 [facility] Last Admin: 01/04/20 17:51 Dose: 0.4 mg Documented by: Tolterodine Tartrate (Detrol La) 4 mg PO DAILY PRN PRN PRN Reason: Spasms Last Admin: 01/05/20 06:45 Dose: 4 mg Documented by: Medical Necessity - Tobacco Use Smoking Status: Former smoker Tobacco Use: Cigarettes Assessment/Plan All Active Problems (Last Reviewed 12/25/19 @ 12:[address] Matthew Arechiga MD) Gross hematuria (Acute) History of wisdom tooth extraction (Resolved) History of arthroscopy of left knee (Resolved) Status post hammer toe correction (Resolved) History of nasal polypectomy (Resolved) History of umbilical hernia repair (Resolved) Edema (Acute) Right foot operation after an accident (Resolved) Deep vein thrombosis (DVT) (Resolved) Urinary retention (Acute) Chest pain (Resolved) dyspnea (Acute) Acute right hip pain (Resolved) Atypical chest pain (Resolved) Chronic bronchitis (Resolved) Constipation (Resolved) Hand, foot and mouth disease (Resolved) PND (post-nasal drip) (Resolved) Sacroiliitis (Resolved) RECOMMENDATIONS: 1. Continue Pulmicort while in the hospital. This can be discontinued on discharge 2. Continue baseline bronchodilators 3. Continue antibiotic and James management per urology 4. No inpatient pulmonary testing would be indicated 5. Okay to discharge from a respiratory standpoint IMPRESSIONS: 1. Chronic cough/COPD Patient does have end expiratory wheezing on exam, but does not appear to be in an acute exacerbation. Given patient's prostate abscess, systemic steroids would be relatively contraindicated. Continue Pulmicort therapy for now, but this is likely not indicated on discharge. Patient may have an element of increased airway inflammation secondary to his prostate abscess and this should improve with continued therapy. Patient does not appear to be in congestive heart failure clinically and heart catheterization was not suggestive of this as an etiology. Would not recommend any repeat echocardiogram or BNP at this time. Reasonable to continue baseline bronchodilator therapy. Would not recommend any inpatient pulmonary testing at this time. 2. Prostate abscess Management per urology. Patient appears to be responding well to therapy. Patient is on appropriate antibiotics from my perspective. No hemodynamic instability has been reported. Defer James management to urology. Patient was significantly uncontrolled pain at this time. 3. Multiple surgeries/history of DVT/LIZA/hyperlipidemia/peripheral neuropathy/BPH Complicates care, management, recovery and prognosis. Patient can continue with his baseline LIZA therapy. Okay to continue with baseline medications from my perspective. Patient has already completed anticoagulation for previous DVT, but would recommend out of bed as tolerated and SCDs given relative immobility. Inpatient E&M: 20041 Subs Hosp L2
[2020-01-05] MEDS: Ipratropium/Albuterol Sulfate 3 ML AMPUL.NEB INHALATION ×3 (07:43→19:21)
[2020-01-05] MEDS: Budesonide Respules 0.5 MG/2 ML AMPUL.NEB. INHALATION ×2 (07:44→19:21)
[2020-01-05] MEDS: Acetaminophen 325 MG Tablet 650 MG PO (08:38)
[2020-01-05] MEDS: Calcium (Elemental) 500 MG Tablet PO (08:40)
[2020-01-05] MEDS: Pantoprazole Sodium 40 MG Tablet PO (08:40)
[2020-01-05] MEDS: Polyethylene Glycol 3350 17 GM PACKET PO (08:40)
[2020-01-05] MEDS: hydroCHLOROthiazide 25 MG Tablet PO (08:40)
[2020-01-05] MEDS: Docusate Sodium 100 MG Capsule PO ×2 (08:40→21:47)
[2020-01-05] MEDS: Gabapentin 300 MG Capsule PO ×2 (08:40→17:52)
--- NOTE | 2020-01-05 09:04 | PCM.PN.BLA ---
Progress Note 69 yo male s/p tur for prostate absces urine clearing d/c guillen for voiding trial today. STROKE Vital Signs/Narrative: Vital Signs Temp Pulse Resp BP Pulse Ox 01/05/20 08:50 97.4 F L 57 L 18 114/67 98 01/05/20 07:43 53 L 16 98
[2020-01-05] MEDS: 0.9% Saline Lock 10 ML Syringe IV ×2 (09:14→21:42)
[2020-01-05] MEDS: Ciprofloxacin 400 MG/200 ML BAG 200 MG IV ×2 (09:15→21:42)
--- NOTE | 2020-01-05 15:55 | DCINST_ITS ---
Discharge Diet: Light diet - advance as tolerated Discharge Activity: Return to Normal Activity Call your doctor if your incision/area has: Sudden Increased Bleeding Call your doctor if you observe: Fever of 101 or Higher, Uncontrolled pain Suture Line Care: Avoid Pulling/Pushing, Avoid Pinching/Bending Catheter: James to leg bag, James to large bag Drain: [place] Allergies/Adverse Reactions: Allergies Iodinated Contrast Media [Iodinated Contrast Media - IV Dye] Allergy (Verified 01/01/20 09:24) Unknown per patient unsure of reaction had facet spinal block about 15 years ago and per patient his surgeon said to torey iv contrast as allergy. patient was premedicated with 13-hour prep with prednisone before CT of chest with IV contrast on 07/13/2018, no reaction noted after CT. oxycodone Adverse Reaction (Verified 01/01/20 09:24) Other 'OFF THE WALL' Medications to take at Discharge tamsulosin 0.4 mg capsule 0.4 mg PO DAILY@1730 #90 cap 12/09/18 rosuvastatin 20 mg tablet 20 mg PO DAILY #90 tab 05/07/19 calcium carbonate 600 mg calcium (1,500 mg) tablet 600 mg PO DAILY 08/24/19 hydrochlorothiazide 25 mg tablet 25 mg PO QDAY #90 tab 08/28/19 gabapentin 300 mg capsule 300 mg PO BID 90 Days #180 cap 12/07/19 albuterol sulfate 90 mcg/actuation aerosol inhaler 2 puff INHALATION Q6H PRN #8.5 g 12/15/19 benzonatate 100 mg capsule 200 mg PO QHS PRN #90 cap 12/15/19 Finasteride 5 mg PO QHS 12/24/19 Acetaminophen [Tylenol Tablet] 650 mg PO Q6H PRN PRN tab 12/27/19 Ciprofloxacin [Cipro] 500 mg PO BID #48 tab 12/27/19 Glycopyrrolate/Formoterol Fum [Bevespi Aerosphere Inhaler] 2 puff INHALATION BID 12/30/19 Polyethylene Glycol 3350 [Miralax] 17 gm PO DAILY 12/30/19 Ciprofloxacin [Cipro] 500 mg PO BID #14 tab 01/01/20 Oxycodone HCl/Acetaminophen [Percocet 5/325] 1 tab PO Q4H PRN PRN 5 Days #14 tab 01/01/20 Ciprofloxacin [Cipro] 500 mg PO BID #14 tab 01/05/20 Hydrocodone/Acetaminophen [[place] 5-325 Tablet] 1 ea PO Q4H PRN PRN 5 Days #14 tab 01/05/20 The following prescriptions were given: Ciprofloxacin [Cipro] 500 mg PO BID #14 tab Transmission Status: Received by [facility] Ciprofloxacin [Cipro] 500 mg PO BID #14 tab Transmission Status: Sent to [facility] 181 Hydrocodone/Acetaminophen [[place] 5-325 Tablet] 1 ea PO Q4H PRN PRN 5 Days #14 tab PRN Reason: Pain Score 1-10/10 Transmission Status: Pending to [facility] 1811 Oxycodone HCl/Acetaminophen [Percocet 5/325] 1 tab PO Q4H PRN PRN 5 Days #14 tab PRN Reason: Pain Transmission Status: Received by [facility] 181 Primary Care Physician: Wade Padilla MD [Primary Care Provider] - Test Results: Test results from this visit will be discussed in further detail at your follow- up appointment, if applicable. Please Follow Up With: Matthew Arechiga MD When: please call to make an appointment. Proposed Discharge Date: 01/06/20
--- NOTE | 2020-01-05 15:56 | DS.PCM_ITS ---
Discharge Date and Diagnosis Date of Admission: 01/01/20 Date of Discharge: 01/06/20 - Secondary Discharge Diagnosis Chronic Problems (Last Reviewed 12/25/19 @ 12:[address] 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) 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 reflux disease) (Chronic) jail current use of 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 (Chronic) Skin lesion (Chronic) Intermittent claudication (Chronic) Abdominal pain (Chronic) COPD (chronic obstructive pulmonary disease) (Chronic) LIZA (obstructive sleep apnea) (Chronic) Tobacco abuse (Chronic) Hyperlipidemia (Chronic) Peripheral neuropathy (Chronic) Obesity (Chronic) Hemorrhoids (Chronic) BPH (benign prostatic hyperplasia) (Chronic) Carotid artery stenosis (Chronic) Hypertension (Chronic) SOB (shortness of breath) (Chronic) Hospital Course and Treatment Operations: None, TURP Summary of Care Provided: The patient is a 69 year old male who underwent a TURP was found to have a prostate abscess was kept in the hospital because of the abscess with IV antibiotics has been clinically stable catheter removed today been able to urinate spontaneously does have some frequency and urge incontinence explained to the patient this should get better with time, and surgery felt like the sphincter was intact. No constant leakage is has urgency but this should get better. Plan is to discharge home with antibiotics follow-up in 1 week in my office. - Physical Exam Vitals/I&O's: Vital Signs Temp Pulse Resp BP Pulse Ox 97.4 F L 58 L 16 114/67 98 01/05/20 08:50 01/05/20 13:44 01/05/20 13:44 01/05/20 08:50 01/05/20 08:50 Oxygen Flow Rate (L/min) 2 Oxygen Delivery Method Room Air Weight: 91.8 kg Body Mass Index (BMI) 29.0 Intake and Output for Last 24 Hours 01/03/20 01/04/20 01/05/20 23:59 23:59 23:59 Intake Total 3855 / 4855 5788.75 / 5788.75 500 / 500 Output Total 5870 / 6320 2600 / 2600 500 / 500 Balance -2015 / -1465 3188.75 / 3188.75 0 / 0 General: Alert, Oriented x3, Cooperative HEENT: Atraumatic, PERRLA, EOMI, Normocephalic Neck: Supple, No JVD, Negative Carotid Bruits Lungs: Clear to auscultation, Normal air movement Cardiovascular: Regular rate, No murmurs Abdomen: Bowel Sounds Present, Soft, Non Tender Extremities: No edema, Capillary Refill Less than 3 Seconds Skin: No rashes, No breakdown Musculoskeletal: No Tenderness to Palpation of Joints or Extremities Neurological: Cranial nerves II-XII grossly intact Psych/Mental Status: Normal Affect, Appropriate Current Medications Acetaminophen (Tylenol) 650 mg PO Q6H PRN PRN PRN Reason: Pain Score 1-10/Temp > 100.7 F Last Admin: 01/05/20 08:38 Dose: 650 mg Documented by: Hydrocodone Bitart/Acetaminophen ([place] 5mg-325mg) 1 - 2 tablet PO Q6H PRN PRN PRN Reason: Pain Score 1-5/10 Last Admin: 01/05/20 09:32 Dose: 2 tablet Documented by: Al Hydroxide/Mg Hydroxide (Mylanta Ii) 30 ml PO Q4H PRN PRN PRN Reason: Heartburn Albuterol Sulfate (Ventolin Aerosols) 2.5 mg INHALATION Q4H PRN PRN Reason: shortness of breath or wheezin Albuterol/Ipratropium (Duoneb) 3 ml INHALATION Q6HWA.RT [facility] Last Admin: 01/05/20 13:44 Dose: 3 ml Documented by: Atorvastatin Calcium (Lipitor) 40 mg PO QHS [facility] Last Admin: 01/04/20 21:20 Dose: 40 mg Documented by: Belladonna Alkaloids/Opium (B & O) 60 mg RECTAL Q6H PRN PRN PRN Reason: Spasm Last Admin: 01/05/20 01:14 Dose: 60 mg Documented by: Benzonatate (Tessalon Perle) 200 mg PO QHS PRN PRN Reason: cough Budesonide (Pulmicort Aerosol) 0.5 mg INHALATION BID.RT [facility] Last Admin: 01/05/20 07:44 Dose: 0.5 mg Documented by: Calcium Carbonate (Os[facility]Zackery 500) [facility] Last Admin: 01/05/20 08:40 Dose: 500 mg Documented by: Docusate Sodium (Colace) 100 mg PO BID [facility] Last Admin: 01/05/20 08:40 Dose: 100 mg Documented by: Gabap[facility]ontin) [facility] Last Admin: 01/05/20 08:40 Dose: 300 mg Documented by: Hydrochlorothiazide (Hctz) 25 mg PO DAILY [facility] Last Admin: 01/05/20 08:40 Dose: 25 mg Documented by: Ciprofloxacin (Cipro) 400 mg in 200 mls @ 200 mls/hr IV Q12 [facility] Last Infusion: 01/05/20 10:15 Dose: Infused Documented by: Ketorolac Tromethamine (Toradol (Bkc)) 15 mg IV Q6H PRN PRN PRN Reason: Pain Score 1-10/10 Stop: 01/09/20 07:25 Last Admin: 01/04/20 11:33 Dose: 15 mg Documented by: Ondansetron HCl (Zofran) 4 mg IV Q6H PRN PRN PRN Reason: Nausea Last Admin: 01/01/20 14:50 Dose: 4 mg Documented by: Pantoprazole Sodium (Protonix) 40 mg PO DAILY [facility] Last Admin: 01/05/20 08:40 Dose: 40 mg Documented by: Polyethylene Glycol (Miralax) 17 gm PO DAILY [facility] Last Admin: 01/05/20 08:40 Dose: 17 gm Documented by: Sodium Chloride () 10 - 40 ml IV UD PRN PRN Reason: SALINE FLUSH Last Admin: 01/05/20 09:14 Dose: 10 ml Documented by: Tamsulosin HCl (Flomax) 0.4 mg PO DAILY@1730 [facility] Last Admin: 01/04/20 17:51 Dose: 0.4 mg Documented by: Tolterodine Tartrate (Detrol La) 4 mg PO DAILY PRN PRN PRN Reason: Spasms Last Admin: 01/05/20 08:38 Dose: 4 mg Documented by: Discharge Diet: Light diet - advance as tolerated Discharge Activity: Return to Normal Activity Call your doctor if your incision/area has: Sudden Increased Bleeding Call your doctor if you observe: Fever of 101 or Higher, Uncontrolled pain Suture Line Care: Avoid Pulling/Pushing, Avoid Pinching/Bending Catheter: James to leg bag, James to large bag Drain: [place] Home Medications: Medications to take at Discharge tamsulosin 0.4 mg capsule 0.4 mg PO DAILY@1730 #90 cap 12/09/18 rosuvastatin 20 mg tablet 20 mg PO DAILY #90 tab 05/07/19 calcium carbonate 600 mg calcium (1,500 mg) tablet 600 mg PO DAILY 08/24/19 hydrochlorothiazide 25 mg tablet 25 mg PO QDAY #90 tab 08/28/19 gabapentin 300 mg capsule 300 mg PO BID 90 Days #180 cap 12/07/19 albuterol sulfate 90 mcg/actuation aerosol inhaler 2 puff INHALATION Q6H PRN #8.5 g 12/15/19 benzonatate 100 mg capsule 200 mg PO QHS PRN #90 cap 12/15/19 Finasteride 5 mg PO QHS 12/24/19 Acetaminophen [Tylenol Tablet] 650 mg PO Q6H PRN PRN tab 12/27/19 Ciprofloxacin [Cipro] 500 mg PO BID #48 tab 12/27/19 Glycopyrrolate/Formoterol Fum [Bevespi Aerosphere Inhaler] 2 puff INHALATION BID 12/30/19 Polyethylene Glycol 3350 [Miralax] 17 gm PO DAILY 12/30/19 Ciprofloxacin [Cipro] 500 mg PO BID #14 tab 01/01/20 Oxycodone HCl/Acetaminophen [Percocet 5/325] 1 tab PO Q4H PRN PRN 5 Days #14 tab 01/01/20 Ciprofloxacin [Cipro] 500 mg PO BID #14 tab 01/05/20 Hydrocodone/Acetaminophen [[place] 5-325 Tablet] 1 ea PO Q4H PRN PRN 5 Days #14 tab 01/05/20 Following Prescrptions Were Given to Patient: Ciprofloxacin [Cipro] 500 mg PO BID #14 tab Transmission Status: Received by [facility] 181 Ciprofloxacin [Cipro] 500 mg PO BID #14 tab Transmission Status: Sent to [facility] 181 Hydrocodone/Acetaminophen [[place] 5-325 Tablet] 1 ea PO Q4H PRN PRN 5 Days #14 tab PRN Reason: Pain Score 1-10/10 Transmission Status: Pending to [facility] 1811 Oxycodone HCl/Acetaminophen [Percocet 5/325] 1 tab PO Q4H PRN PRN 5 Days #14 tab PRN Reason: Pain Transmission Status: Received by [facility] 181 Primary Care Physician: Wade Padilla MD [Primary Care Provider] - Please Follow Up With: Matthew Arechiga MD When: please call to make an appointment. Medical Necessity - Tobacco Use Smoking Status: Former smoker Tobacco Use: Cigarettes Meaningful Use Info Meaningful Use Diagnoses (Choose all that apply): None applicable
[2020-01-05] MEDS: Tamsulosin HCl 0.4 MG Capsule PO (17:52)
[2020-01-05] MEDS: Atorvastatin Calcium 40 MG Tablet PO (21:47)
[2020-01-06] MEDS: HYDROcodone Bitartrate/Apap 5/325 Tablet PO (00:15)
[2020-01-06 03:48] VITALS: BP 132/56; PULSE 61; RESP 18; TEMP 36.6; O2SAT 97
[2020-01-06 08:10] VITALS: BP 120/61; PULSE 59; RESP 16; TEMP 36.6; O2SAT 98
[2020-01-06] MEDS: Calcium (Elemental) 500 MG Tablet PO (08:23)
[2020-01-06] MEDS: Gabapentin 300 MG Capsule PO (08:23)
--- NOTE | 2020-01-07 15:01 | CASEMGMT ---
TOREY VICKERS DC PHONE CALL DC DATE: 01.06.2020 DC DISPOSITION: Home DC DIAGNOSIS: TURP LACE/STRATA: 07/12 F/U APPTS MADE PRIOR TO DC: NO PRESCRIPTIONS ACQUIRED BY PT: yes Intro role of CM to patient. Lengthy phone call with patient who had concerns regarding re: location for recovery being on [address] when he was told it would be the first floor, AC nurse telling pt surgery procedure differing from what pt's told him was being done, painful re-insertion of guillen in recovery room, not having a cardiology consult in hospital (not ordered by attending), having to call during employee placement specialist as he was not getting response from call light. Pt did state he had called patient advocate Anand and explained his concerns. TOREY VICKERS addressed concerns with pt letting him know TOREY VICKERS would review with Anand pt advocate who would address with appropriate managers. RN RANCHO encouraged patient to speak with Dr. Arechiga re: his specific concerns with physician. -Call to Anand patient advocate. Reviewed pt's concerns above which were same as he was told. Anand states he has had conversations with pt and is in process of addressing concerns with appropriate managers. -pt stated he appreciated being able to voice concerns to TOREY VICKERS and Anand pt advocate. Claudio COBB RN [facility]
== END 2020-01-06 09:10 | disposition home or self-care (01) | DRG 713 ==
LOC: SDC 12:50 → MS3 12:50
PROVIDERS: Anesthesiology; Admitting Provider Urology; PCP Internal Medicine; Referring Provider Urology; Visit Provider Urology
PROC: 0VT08ZZ Resection of Prostate, Via Natural or Artificial Opening Endoscopic (ICD-10-PCS; principal; 2020-01-01 11:20)
DX: N41.2 Abscess of prostate (principal); N30.01 Acute cystitis with hematuria; N40.1 Benign prostatic hyperplasia with lower urinary tract symptoms; N35.011 Post-traumatic bulbous urethral stricture; N39.41 Urge incontinence; R33.8 Other retention of urine; R35.0 Frequency of micturition; R39.14 Feeling of incomplete bladder emptying; R39.12 Poor urinary stream; J44.9 Chronic obstructive pulmonary disease, unspecified; J45.20 Mild intermittent asthma, uncomplicated; I10 Essential (primary) hypertension; I87.009 Postthrombotic syndrome without complications of unspecified extremity; G47.33 Obstructive sleep apnea (adult) (pediatric); E78.5 Hyperlipidemia, unspecified; G62.9 Polyneuropathy, unspecified; K21.9 Gastro-esophageal reflux disease without esophagitis; F32.9 Major depressive disorder, single episode, unspecified; E66.9 Obesity, unspecified; Z68.29 Body mass index [BMI] 29.0-29.9, adult; Z79.01 Long term (current) use of 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s; Z79.899 Other long term (current) drug therapy; Z86.72 Personal history of thrombophlebitis; Z86.711 Personal history of pulmonary embolism; Z86.718 Personal history of other venous thrombosis and embolism; Z87.440 Personal history of urinary (tract) infections; Z87.891 Personal history of nicotine dependence
CPT/HCPCS: 36415; 36416; 80048; 85027; 85610; 88305; 93005; 94640; 99251; 99406; J7030; J7120; A4216; G0463; J0744; J2405

== ENCOUNTER → 2020-01-14 07:40 | Outpatient (CLI) | payer MEDICARE, OTHER, SELFPAY ==
[2019-02-03 13:26] VITALS: BMI 29.7
[2019-07-14 08:44] VITALS: BMI 29.7
[2020-01-13 09:16] VITALS: BMI 29.0
[2020-01-14 08:52] LABS: PSA,Total- Diagnostic 0.16 ng/mL (0.0-4.0)
== END ==
PROVIDERS: Family Provider Internal Medicine; PCP Internal Medicine; Referring Provider Urology; Visit Provider Urology
DX: N40.1 Benign prostatic hyperplasia with lower urinary tract symptoms (principal); R82.998 Other abnormal findings in urine; Z12.5 Encounter for screening for malignant neoplasm of prostate
CPT/HCPCS: 36415; 84153; 87086

== ENCOUNTER 2020-02-05 09:15 | Outpatient (RCR) | payer MEDICARE, OTHER, SELFPAY ==
[2020-01-01 14:39] VITALS: BMI 29.0
[2020-01-12 09:08] LABS: International Normalized Ratio 1.1; Prothrombin Time (Protime)PT. 13.8 SECONDS (11.7-14.9)
[2020-01-12 09:24] LABS: Anion Gap 2 (5-15); BUN 17 mg/dL (7-18); BUN/Creat Ratio 17.8 RATIO (10-20); Calcium,Total 8.9 mg/dL (8.5-10.1); Chloride 109 mmol/L (98-107); Creatinine, Serum 0.96 mg/dL (0.70-1.30); EST Glomerular Filtration Rate 83 mL/min (>60); Est Glom Filt Rate - Afr Amer 100 mL/min (>60); Glucose 105 mg/dL (74-106); Sodium Level 139 mmol/L (136-145)
[2020-01-18 09:49] LABS: International Normalized Ratio 1.3; Prothrombin Time (Protime)PT. 15.2 SECONDS (11.7-14.9)
[2020-01-22 09:24] LABS: International Normalized Ratio 2.1; Prothrombin Time (Protime)PT. 22.8 SECONDS (11.7-14.9)
[2020-02-05 12:56] LABS: International Normalized Ratio 2.1; Prothrombin Time (Protime)PT. 23.5 SECONDS (11.7-14.9)
[2020-02-05 13:12] LABS: Anion Gap 7 (5-15); BUN 13 mg/dL (7-18); BUN/Creat Ratio 14.3 RATIO (10-20); Chloride 108 mmol/L (98-107); Creatinine, Serum 0.91 mg/dL (0.70-1.30); EST Glomerular Filtration Rate 88 mL/min (>60); Est Glom Filt Rate - Afr Amer 106 mL/min (>60); Glucose 108 mg/dL (74-106); Magnesium 2.5 mg/dL (1.6-2.6); Sodium Level 139 mmol/L (136-145)
== END 2020-02-07 23:59 ==
LOC: BIMLAB 09:15
PROVIDERS: Specialist; Family Provider Internal Medicine; PCP Internal Medicine; Referring Provider Internal Medicine; Visit Provider Internal Medicine
DX: I82.409 Acute embolism and thrombosis of unspecified deep veins of unspecified lower extremity (principal); Z79.01 Long term (current) use of 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s; R60.9 Edema, unspecified; I10 Essential (primary) hypertension; I35.0 Nonrheumatic aortic (valve) stenosis; I35.1 Nonrheumatic aortic (valve) insufficiency
CPT/HCPCS: 36415; 80048; 83735; 85610

== ENCOUNTER → 2020-02-25 10:59 | Outpatient (CLI) | payer MEDICARE, OTHER, SELFPAY ==
[2020-02-05 08:44] VITALS: BMI 29.2
== END ==
PROVIDERS: PCP Internal Medicine; Referring Provider Urology; Visit Provider Urology
DX: R82.998 Other abnormal findings in urine (principal)
CPT/HCPCS: 87086; 87088

== ENCOUNTER 2020-04-04 08:30 | Outpatient (RCR) | payer MEDICARE, OTHER, SELFPAY ==
[2020-02-05 08:44] VITALS: BMI 29.2
[2020-03-23 13:20] VITALS: BMI 29.2
[2020-03-25 12:30] LABS: International Normalized Ratio 1.8; Prothrombin Time (Protime)PT. 20.8 SECONDS (11.7-14.9)
[2020-03-28 12:21] LABS: International Normalized Ratio 2.3; Prothrombin Time (Protime)PT. 24.6 SECONDS (11.7-14.9)
[2020-04-04 12:38] LABS: International Normalized Ratio 3.2; Prothrombin Time (Protime)PT. 32.1 SECONDS (11.7-14.9)
== END 2020-04-08 23:59 ==
LOC: BIMLAB 08:30
PROVIDERS: Family Provider Internal Medicine; PCP Internal Medicine; Referring Provider Internal Medicine; Visit Provider Internal Medicine
DX: I82.409 Acute embolism and thrombosis of unspecified deep veins of unspecified lower extremity (principal); Z79.01 Long term (current) use of 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s
CPT/HCPCS: 36415; 85610

== ENCOUNTER → 2020-04-11 08:48 | Outpatient (CLI) | payer MEDICARE, OTHER, SELFPAY ==
[2020-03-23 13:20] VITALS: BMI 29.2
[2020-04-11 12:36] LABS: International Normalized Ratio 2.2; Prothrombin Time (Protime)PT. 24.3 SECONDS (11.7-14.9)
== END ==
PROVIDERS: PCP Internal Medicine; Referring Provider Internal Medicine; Visit Provider Internal Medicine
DX: I82.409 Acute embolism and thrombosis of unspecified deep veins of unspecified lower extremity (principal); Z79.01 Long term (current) use of 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s
CPT/HCPCS: 36415; 85610

== ENCOUNTER → 2020-05-02 07:46 | Outpatient (CLI) | payer MEDICARE, OTHER, SELFPAY ==
[2020-04-25 08:19] VITALS: BMI 30.1
--- NOTE | 2020-05-02 07:46 | CT_ITS ---
STUDY: LOW DOSE CT LUNG CANCER SCREENING REASON FOR EXAM: Male, 69 years old. TOBACCO ABUSE, 1 PPD X 45 YRS, COPD, ASTHMA RADIATION DOSAGE (If Supplied By Facility): CTDIvol = ( 4.02 ) mGy, DLP = ( 131.90 ) mGycm TECHNIQUE: No contrast was administered. Low dose technique was utilized (average mAS-38 and kVp 120). 1.25 mm axial source images with a slice interval of 1.25-mm were reconstructed in lung windows. 2.5 mm axial source images with a slice interval of 2.5-mm were reconstructed in lung windows. 5.0 mm axial source images with a slice interval of 5.0-mm were reconstructed in soft tissue windows. Nodule measured using lung windows on PACS and/or independent workstation with automated measurement of minimum and maximum diameter. Nodule measurement reported as average diameter rounded to the nearest whole number. Growth is defined as an increase ins size of greater than 1.5 mm. COMPARISON: Comparison is made with prior examination dated 07/13/2008. NODULES: None. Emphysema: Mild bilateral apical scarring. Minimal scarring in the anterior lateral aspect of the lingular segment of the left upper lobe and medial aspect of the right middle lobe. This is unchanged. Endobronchial lesion: None Aorta: Atherosclerotic plaque formation of the aortic arch. Coronary arteries: Coronary artery calcification. Mediastinal nodes: Small benign-appearing mediastinal lymph nodes. Other chest and abdominal findings: Degenerative changes of the visualized lumbar and thoracic spine. CT/Low Dose CT Lung Screening IMPRESSION: Lung-RADS category 2 - Continue annual screening with LDCT in 12 months. IMPORTANT NOTES FOR USE: ACR Lung-RADS Version 1.0 Assessment Categories Release Date: January 04, 2014 Category: Coded 0-4 bases on nodule(s) with highest degree of suspicion. Negative screen is defined as categories 1 and 2; a positive screen is defined as categories 3 and 4. Category 3 and 4A nodules that are unchanged on interval CT should be coded as category 2, and individuals returned to screening in 12 months. Category 4X: Category 3 or 4 nodules with additional imaging findings that increase the suspicion of lung cancer, such as spiculation, GGN that doubles in size in 1 year, enlarged lymph notes, etc. Category Modifiers: S (significant finding unrelated to lung cancer) and C (prior history of treated lung cancer) may be added to the 0-4 Lung-RADS Electronically Signed: Grzegorz Delong, at 10:48 EDT , Service support ,
== END ==
PROVIDERS: PCP Internal Medicine; Referring Provider Nurse Practitioner Acute Care; Visit Provider Nurse Practitioner Acute Care
DX: F17.210 Nicotine dependence, cigarettes, uncomplicated (principal)
CPT/HCPCS: G0297

== ENCOUNTER 2020-05-06 10:20 | Outpatient (RCR) | payer MEDICARE, OTHER, SELFPAY ==
[2020-03-23 13:20] VITALS: BMI 29.2
[2020-04-25 08:19] VITALS: BMI 30.1
[2020-05-06 12:13] LABS: International Normalized Ratio 2.2; Prothrombin Time (Protime)PT. 24.3 SECONDS (11.7-14.9)
== END 2020-05-09 23:59 ==
LOC: BIMLAB 10:20
PROVIDERS: Family Provider Internal Medicine; PCP Internal Medicine; Referring Provider Internal Medicine; Visit Provider Internal Medicine
DX: I82.409 Acute embolism and thrombosis of unspecified deep veins of unspecified lower extremity (principal); Z79.01 Long term (current) use of 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s
CPT/HCPCS: 36415; 85610

== ENCOUNTER 2020-05-27 10:19 | Outpatient (RCR) | payer MEDICARE, OTHER, SELFPAY ==
[2020-04-25 08:19] VITALS: BMI 30.1
[2020-05-27 12:21] LABS: International Normalized Ratio 1.4; Prothrombin Time (Protime)PT. 17.1 SECONDS (11.7-14.9)
== END 2020-06-08 23:59 ==
LOC: BIMLAB 10:19
PROVIDERS: Family Provider Internal Medicine; PCP Internal Medicine; Referring Provider Internal Medicine; Visit Provider Internal Medicine
DX: I82.409 Acute embolism and thrombosis of unspecified deep veins of unspecified lower extremity (principal); Z79.01 Long term (current) use of 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s
CPT/HCPCS: 36415; 85610

== ENCOUNTER 2020-06-10 09:00 | Outpatient (RCR) | payer MEDICARE, OTHER, SELFPAY ==
[2020-05-30 12:41] VITALS: BMI 30.1
[2020-06-10 12:19] LABS: International Normalized Ratio 2.6; Prothrombin Time (Protime)PT. 27.3 SECONDS (11.7-14.9)
== END 2020-07-09 23:59 ==
LOC: BIMLAB 09:00
PROVIDERS: Family Provider Internal Medicine; PCP Internal Medicine; Referring Provider Internal Medicine; Visit Provider Internal Medicine
DX: I82.409 Acute embolism and thrombosis of unspecified deep veins of unspecified lower extremity (principal); Z79.01 Long term (current) use of 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s
CPT/HCPCS: 36415; 85610

== ENCOUNTER 2020-08-03 09:00 | Outpatient (RCR) | payer MEDICARE, OTHER, SELFPAY ==
[2020-05-30 12:41] VITALS: BMI 30.1
[2020-07-15 12:22] LABS: International Normalized Ratio 1.9; Prothrombin Time (Protime)PT. 21.1 SECONDS (11.7-14.9)
[2020-07-21 13:05] LABS: International Normalized Ratio 1.9; Prothrombin Time (Protime)PT. 21.5 SECONDS (11.7-14.9)
[2020-08-03 12:40] LABS: International Normalized Ratio 2.1; Prothrombin Time (Protime)PT. 22.8 SECONDS (11.7-14.9)
== END 2020-08-08 23:59 ==
LOC: BIMLAB 09:00
PROVIDERS: Family Provider Internal Medicine; PCP Internal Medicine; Referring Provider Internal Medicine; Visit Provider Internal Medicine
DX: I82.409 Acute embolism and thrombosis of unspecified deep veins of unspecified lower extremity (principal); Z79.01 Long term (current) use of 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s
CPT/HCPCS: 36415; 85610

== ENCOUNTER → 2020-08-15 10:09 | Outpatient (CLI) | payer MEDICARE, OTHER, SELFPAY ==
[2020-08-15 09:18] VITALS: BMI 28.8
[2020-08-15 12:25] LABS: Absolute Lymphocyte Count 1.61 X10^3/uL (0.83-4.51); Absolute Neutrophil Count 3.2 X10^3/uL (2.0-7.7); Basophil# 0.04 X10^3/uL; Basophil% 0.7 % (0-1); Eosinophil# 0.09 X10^3/uL; Eosinophils% 1.6 % (0-5); Hemoglobin 15.4 g/dL (13.0-16.5); Lymphocyte # 1.61 X10^3/ul (4.0); Lymphocyte % 28.8 % (19-41); Mean Corp Hgb Conc 32.8 g/dL (32-36); Mean Corpuscular Hgb 34.3 pg (27.0-32.0); Mean Corpuscular Volume 104.7 fL (80-94); Monocyte# 0.62 X10^3/uL; Monocyte% 11.1 % (0-10); NRBC Flagged by Analyzer 0 % (0-5); Neutrophil # 3.22 X10^3/uL (2.7-7.7); Neutrophil % 57.6 % (47-70); Platelet Count 201 K/mm3 (150-450); RBC Distribution Width SD 54.5 fl (35.1-43.9); Red Blood Count 4.49 M/mm3 (4.6-6.2); White Blood Count 5.6 K/mm3 (4.4-11.0)
[2020-08-15 12:45] LABS: AST(SGOT) 18 U/L (15-37); Alanine Aminotransfer ALT/SGPT 34 U/L (16-61); Albumin, Serum 3.7 g/dL (3.2-5.0); Alkaline Phosphatase 62 U/L (45-117); Anion Gap 4 (5-15); BUN 12 mg/dL (7-18); Chloride 107 mmol/L (98-107); Creatinine, Serum 0.92 mg/dL (0.70-1.30); EST Glomerular Filtration Rate 86 mL/min (>60); Est Glom Filt Rate - Afr Amer 104 mL/min (>60); Globulin 3.8 g/dL (2.2-4.2); Glucose 105 mg/dL (74-106); Potassium 4.3 mmol/L (3.5-5.1); Protein, Total 7.5 g/dL (6.4-8.2); Sodium Level 137 mmol/L (136-145)
== END ==
PROVIDERS: PCP Internal Medicine; Visit Provider Internal Medicine
DX: I10 Essential (primary) hypertension (principal); E78.5 Hyperlipidemia, unspecified; Z79.01 Long term (current) use of 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s
CPT/HCPCS: 36415; 80053; 85025

== ENCOUNTER → 2020-09-19 09:38 | Outpatient (CLI) | payer MEDICARE, OTHER, SELFPAY ==
[2020-04-25 08:19] VITALS: BMI 30.1
[2020-08-15 09:18] VITALS: BMI 28.8
--- NOTE | 2020-09-20 08:55 | PFT ---
INTRODUCTION: The patient is a 69-year-old male that presents for pulmonary function studies secondary to a diagnosis of COPD. Respiratory therapy reports good patient effort. Bronchodilators were used during testing. INTERPRETATION: Forced expiration spirometry demonstrates the presence of a moderately severe large airways obstructive ventilatory defect. There was a significant response to aerosolized bronchodilators noted. Spirograms are of good quality and do not plateau indicating slow emptying of the lungs. Body plethysmography was performed and revealed an elevated RV to 130% of predicted, indicative of underlying air trapping. Diffusing capacity by single breath CO is within normal limits. IMPRESSION: Partially reversible moderately severe large airways obstructive ventilatory defect with associated air trapping and preserved diffusing capacity.
== END ==
PROVIDERS: PCP Internal Medicine; Referring Provider Nurse Practitioner Acute Care; Visit Provider Nurse Practitioner Acute Care
DX: J44.9 Chronic obstructive pulmonary disease, unspecified (principal)
CPT/HCPCS: 94060; 94726; 94729

== ENCOUNTER → 2020-09-20 12:12 | Outpatient (CLI) | payer MEDICARE, OTHER, SELFPAY ==
[2020-04-25 08:19] VITALS: BMI 30.1
[2020-08-15 09:18] VITALS: BMI 28.8
[2020-09-20 12:43] VITALS: PULSE 102; PULSE 110; PULSE 65; PULSE 78; PULSE 90; PULSE 91; PULSE 92; PULSE 93; O2SAT 96; O2SAT 97; O2SAT 98
--- NOTE | 2020-09-20 12:52 | CPS ---
Mr Raff had to slow down at 3 1/2 mins due to lf leg and hip pain
--- NOTE | 2020-09-22 13:15 | WT_ITS ---
PSN 6 Minute Walk Test - 6 Minute Walk Test 6 Minute Walk Test: 6 Minute Walk Test PSN:6-Minute Walk Test Start: 09/20/20 12:43 Freq: Status: Active Protocol: [id number] Document 09/20/20 12:43 FR (Rec: 09/20/20 12:56 FR [id number]) 6 Minute Walk Test Date Performed 09/20/20 Time Performed 12:30 Height 5 ft 10 in Weight: 200 lb Weight in Pounds 200.[address]: Dr. La Assistive device used: None Pre-test Oxygen Delivery Method Room Air Pulse Ox (%) 98 Pulse Rate (60-100 beats/min) 65 Dyspnea David Scale (0-10) 4 Exertion David Scale (6-20) 8 1st minute Oxygen Delivery Method Room Air Pulse Ox (%) 97 Pulse Rate (60-100 beats/min) 92 2nd minute Oxygen Delivery Method Room Air Pulse Ox (%) 97 Pulse Rate (60-100 beats/min) 110 H 3rd minute Oxygen Delivery Method Room Air Pulse Ox (%) 97 Pulse Rate (60-100 beats/min) 102 H 4th minute Oxygen Delivery Method Room Air Pulse Ox (%) 97 Pulse Rate (60-100 beats/min) 91 5th minute Oxygen Delivery Method Room Air Pulse Ox (%) 97 Pulse Rate (60-100 beats/min) 93 6th minute Oxygen Delivery Method Room Air Pulse Ox (%) 96 Pulse Rate (60-100 beats/min) 90 Post-test Oxygen Delivery Method Room Air Pulse Ox (%) 98 Pulse Rate (60-100 beats/min) 78 Dyspnea David Scale (0-10) 4 Exertion David Scale (6-20) 8 Full Laps Walked 15 Partial Lap, Number of Tiles Walked 10 Total Distance Walked (ft) 895 09/20/20 12:52 Cardiopulmonary Services by Lali Gaffney Mr Ameena had to slow down at 3 1/2 mins due to lf leg and hip pain Initialized on 09/20/20 12:52 - END OF NOTE - Interpretation Interpretation: The patient ambulated 895 feet over the course of 6 minutes beginning on room air without assistive devices or breaks. Pretesting oxygen saturation was noted to be 98% on room air. With ambulation, the bonny oxygen saturation was 96%. There was no significant exertional oxygen desaturation. - Recommendations Recommendations: There is no indication for the use of supplemental oxygen at this time.
== END ==
PROVIDERS: PCP Internal Medicine; Referring Provider Nurse Practitioner Acute Care; Visit Provider Nurse Practitioner Acute Care
DX: J44.9 Chronic obstructive pulmonary disease, unspecified (principal)
CPT/HCPCS: 94618

== ENCOUNTER 2020-10-09 17:21 | Emergency (ER) | payer MEDICARE, OTHER, SELFPAY ==
[2020-10-06 07:08] VITALS: BMI 30.8
[2020-10-09 17:22] VITALS: BP 143/71; PULSE 58; RESP 17; TEMP 36.1; O2SAT 97; BMI 31.0
--- NOTE | 2020-10-09 17:35 | EKG12_ITS ---
Test Reason : CP Blood Pressure : / mmHG Vent. Rate : 058 BPM Atrial Rate : 058 BPM P-R Int : 148 ms QRS Dur : 092 ms QT Int : 440 ms P-R-T Axes : 068 083 061 degrees QTc Int : 431 ms Sinus bradycardia Nonspecific T wave abnormality Abnormal ECG Confirmed by ISABEL GUNDERSON, BON ([id number]), senior editor ISIDRA CARLOS ([id number]) on 10/10/2020 1:11:13 PM Referred By: RHODA Confirmed By:BON HALL MD
--- NOTE | 2020-10-09 17:37 | ED.VIS.GEN ---
History of Present Illness Chief Complaint: Palpitations Informant: Patient Narrative: 69-year-old male presents for evaluation of palpitations and diaphoresis. Patient states that about 30 minutes prior to arrival he had finished having a bowel movement and was coming up the stairs when he has sudden onset of fluttering sensation in the left side of his chest. He states he immediately broke out into a sweat. He tells me he still having those symptoms but to a much lesser extent. He tells me that his took his blood pressure and his pulse ox and they were normal. He did not obtain a heart rate. He tells me that about 2 to 3 weeks ago he had 4 days when it was constant. He discussed it with his supervisor [employer] who felt he should mention it to his plastic eye technician as it could represent A. fib. He has a history of moderate aortic stenosis and COPD. He is had prior DVT and is on Coumadin. 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 (5) 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 reflux disease) Status: Chronic (6) Hemorrhoids Status: Chronic (7) Hyperlipidemia Status: Chronic (8) Hypersomnia Status: Chronic (9) Hypertension Status: Chronic (10) LIZA (obstructive sleep apnea) Status: Chronic (11) Peripheral neuropathy Status: Chronic (12) Post-phlebitic syndrome Status: Chronic Past Medical History - Allergies and Home Meds Allergies/Adverse Reactions: Allergies Iodinated Contrast Media [Iodinated Contrast Media - IV Dye] Allergy (Verified 10/09/20 17:24) Unknown per patient unsure of reaction had facet spinal block about 15 years ago and per patient his surgeon said to torey iv contrast as allergy. patient was premedicated with 13-hour prep with prednisone before CT of chest with IV contrast on 07/13/2018, no reaction noted after CT. oxycodone Adverse Reaction (Verified 10/09/20 17:24) Other 'OFF THE WALL' Primary Care Physician: Maninder Kennedy MD [STAFF PHYSICIAN] - As soon as possible Surgical History: herniorrhaphy, - - [place] Lives: Spouse/ Significant Other Smoking Status: Current every day smoker Drugs: None Review of Systems General: Denies: Chills, Fever, Sweats Eyes: Denies: Visual changes - bilaterally, Diplopia ENT: Denies: Rhinorrhea, Sore throat Cardiovascular: Reports: Palpitations. Denies: Chest pain, Heart racing Respiratory: Denies: Dyspnea, Cough, Dyspnea on exertion Gastrointestinal: Denies: Abdominal pain, Nausea, Vomiting, Diarrhea, Melena, Hematochezia Genitourinary: Denies: Dysuria, Hematuria, Frequency Musculoskeletal: Denies: Back pain, Extremity Pain Skin: Reports: - - Diaphoresis. Denies: Rash, Wounds Neurological: Denies: Headache, Weakness, Numbness Physical Exam Vital Signs/Narrative: Vital Signs Temp Pulse Resp BP Pulse Ox 10/09/20 17:22 96.9 F L 58 L 17 143/71 H 97 Inital Vital Signs reviewed: Yes General: Well nourished, Well developed, Obese, No Acute Distress Head: Normocephalic, Atraumatic Eyes: Perrl, EOMI ENT: Moist mucous membranes, No rhinorrhea Neck: Supple, Nontender Cardiovascular: Regular rate, Regular rhythm, Normal S1, Murmur Respiratory: No distress, CTA bilaterally, Chest nontender Abdomen: Soft, Nontender, Nondistended, Normal bowel sounds Back: Nontender, Normal Inspection Extremities: Nontender, No edema Skin: Normal color, No rash Neurological: Alert, Oriented x3, Cranial nerves II-XII grossly intact, Normal Strength, Normal Sensation Psychological: Normal affect, Normal Mood Diagnostic/Tx/Re-eval Clinical Impression(s) from Imaging Studies Chest X-Ray 10/09/20 17:55 IMPRESSION: Normal x-ray examination of the chest. Electronically Signed: Paloma Restrepo MD at 18:19 EST Tel , Service support , Laboratory Last Values WBC 7.2 K/mm3 (4.4-11.0) 10/09/20 17:46 RBC 4.37 M/mm3 (4.6-6.2) L 10/09/20 17:46 Hgb 15.2 g/dL (13.0-16.5) 10/09/20 17:46 Hct 45.0 % (40-54) 10/09/20 17:46 MCV 103.0 fL (80-94) H 10/09/20 17:46 MCH 34.8 pg (27.0-32.0) H 10/09/20 17:46 MCHC 33.8 g/dL (32-36) 10/09/20 17:46 RDW Std Deviation 51.8 fl (35.1-43.9) H 10/09/20 17:46 RDW Coeff of Marcelle 13.4 % (11.6-14.6) 10/09/20 17:46 Plt Count 183 K/mm3 (150-450) 10/09/20 17:46 MPV 9.8 fl (6.2-12.0) 10/09/20 17:46 Immature Gran % (Auto) 0.300 % (0.0-0.9) 10/09/20 17:46 Neut % (Auto) 46.6 % (47-70) L 10/09/20 17:46 Lymph % (Auto) 39.2 % (19-41) 10/09/20 17:46 [place] % (Auto) 11.1 % (0-10) H 10/09/20 17:46 Eos % (Auto) 2.1 % (0-5) 10/09/20 17:46 Baso % (Auto) 0.7 % (0-1) 10/09/20 17:46 Absolute Neuts (auto) 3.4 X10^3/uL (2.0-7.7) 10/09/20 17:46 Absolute Lymphs (auto) 2.83 X10^3/uL (0.83-4.51) 10/09/20 17:46 Nucleated RBC % 0 % (0-5) 10/09/20 17:46 PT 31.7 SECONDS (11.7-14.9) H 10/09/20 17:46 INR 3.1 10/09/20 17:46 Sodium 139 mmol/L (136-145) 10/09/20 17:46 Potassium 3.5 mmol/L (3.5-5.1) 10/09/20 17:46 Chloride 104 mmol/L (98-107) 10/09/20 17:46 Carbon Dioxide 29.0 mmol/L (21.0-32.0) 10/09/20 17:46 Anion Gap 6 (5-15) 10/09/20 17:46 BUN 14 mg/dL (7-18) 10/09/20 17:46 Creatinine 1.03 mg/dL (0.70-1.30) 10/09/20 17:46 Estim Creat Clear Calc 69.89 ml/min 10/09/20 17:46 Est GFR (MDRD) Af Amer 92 mL/min (>60) 10/09/20 17:46 Est GFR (MDRD) Non-Af 76 mL/min (>60) 10/09/20 17:46 BUN/Creatinine Ratio 13.6 RATIO (10-20) 10/09/20 17:46 Glucose 137 mg/dL (74-106) H 10/09/20 17:46 Calcium 8.8 mg/dL (8.5-10.1) 10/09/20 17:46 Magnesium 2.4 mg/dL (1.6-2.6) 10/09/20 17:46 Troponin I < 0.015 ng/mL (<0.045) 10/09/20 17:46 TSH 3.49 uIU/mL (0.358-3.74) 10/09/20 17:46 - EKG Initial EKG Interpretation: Sinus Bradycardia - EKG demonstrates a sinus bradycardia at a rate of 58 with no concerning features of ACS. - Medical Decision Making Basic labs were obtained and were negative. EKG shows no evidence of ACS. My interpretation of the portable chest x-ray is no acute process. This is agreed upon with radiology. As the patient got here within 30 minutes of the onset of symptoms a delta troponin would be indicated. Patient is agreeable to stay. I discussed the case with Dr. Kennedy, his plastic eye technician. ED Disposition - Plan for ED Patient: Disposition: Home or Assisted Living Diagnosis: Palpitations Instructions: ED Palpitations Referrals: Maninder Kennedy MD [STAFF PHYSICIAN] - As soon as possible
--- NOTE | 2020-10-09 17:55 | RAD_ITS ---
STUDY: X-RAY CHEST REASON FOR EXAM: Male, 69 years old. PALPITATIONS X 1 WEEK. TECHNIQUE: Frontal view of the chest COMPARISON: 02 May 2020 FINDINGS: The lungs are clear and expanded. There is no demonstrated pleural abnormality. Normal size heart. Normal mediastinum and cher. Normal visualized pulmonary arteries. Normal visualized aortic arch and descending thoracic aorta. Normal visualized thoracic spine. Normal visualized ribs, clavicles, and shoulders. There is no demonstrated abnormality of the visualized soft tissue structures of the upper abdomen. RAD/Chest 1 View (Portable) IMPRESSION: Normal x-ray examination of the chest. Electronically Signed: Paloma Restrepo MD at 18:19 EST Tel , Service support ,
[2020-10-09 18:06] LABS: Absolute Lymphocyte Count 2.83 X10^3/uL (0.83-4.51); Absolute Neutrophil Count 3.4 X10^3/uL (2.0-7.7); Basophil# 0.05 X10^3/uL; Basophil% 0.7 % (0-1); Eosinophil# 0.15 X10^3/uL; Eosinophils% 2.1 % (0-5); Hemoglobin 15.2 g/dL (13.0-16.5); Lymphocyte # 2.83 X10^3/ul (4.0); Lymphocyte % 39.2 % (19-41); Mean Corp Hgb Conc 33.8 g/dL (32-36); Mean Corpuscular Hgb 34.8 pg (27.0-32.0); Mean Platelet Vol. 9.8 fl (6.2-12.0); Monocyte% 11.1 % (0-10); NRBC Flagged by Analyzer 0 % (0-5); Neutrophil # 3.37 X10^3/uL (2.7-7.7); Neutrophil % 46.6 % (47-70); Platelet Count 183 K/mm3 (150-450); RBC Distribution Width CV 13.4 % (11.6-14.6); RBC Distribution Width SD 51.8 fl (35.1-43.9); Red Blood Count 4.37 M/mm3 (4.6-6.2); White Blood Count 7.2 K/mm3 (4.4-11.0)
[2020-10-09 18:10] LABS: International Normalized Ratio 3.1; Prothrombin Time (Protime)PT. 31.7 SECONDS (11.7-14.9)
[2020-10-09 18:21] VITALS: BP 140/81; PULSE 58; RESP 19; O2SAT 95
[2020-10-09 18:22] LABS: Anion Gap 6 (5-15); BUN 14 mg/dL (7-18); BUN/Creat Ratio 13.6 RATIO (10-20); Calcium,Total 8.8 mg/dL (8.5-10.1); Chloride 104 mmol/L (98-107); Creatinine, Serum 1.03 mg/dL (0.70-1.30); EST Glomerular Filtration Rate 76 mL/min (>60); Est Glom Filt Rate - Afr Amer 92 mL/min (>60); Estimated Creatinine Clearance 69.89 ml/min; Glucose 137 mg/dL (74-106); Magnesium 2.4 mg/dL (1.6-2.6); Potassium 3.5 mmol/L (3.5-5.1); Sodium Level 139 mmol/L (136-145); Thyroid Stim Hormone (TSH) 3.49 uIU/mL (0.358-3.74)
[2020-10-09 19:00] VITALS: BP 144/57; PULSE 59; RESP 15; O2SAT 95
[2020-10-09 20:00] VITALS: BP 156/59; PULSE 54; RESP 18; O2SAT 93
[2020-10-09 21:00] VITALS: PULSE 57; RESP 20; O2SAT 93
== END 2020-10-09 22:16 | disposition home or self-care (01) ==
PROVIDERS: Emergency Provider Emergency Medicine; PCP Internal Medicine
DX: R00.2 Palpitations (principal); R61 Generalized hyperhidrosis; J44.9 Chronic obstructive pulmonary disease, unspecified; I10 Essential (primary) hypertension; E78.5 Hyperlipidemia, unspecified; G62.9 Polyneuropathy, unspecified; K21.9 Gastro-esophageal reflux disease without esophagitis; G47.33 Obstructive sleep apnea (adult) (pediatric); N40.0 Benign prostatic hyperplasia without lower urinary tract symptoms; E66.9 Obesity, unspecified; F17.200 Nicotine dependence, unspecified, uncomplicated; Z79.01 Long term (current) use of 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s; Z79.899 Other long term (current) drug therapy; Z86.718 Personal history of other venous thrombosis and embolism
CPT/HCPCS: 71045; 80048; 83735; 84443; 84484; 85025; 85610; 93005; 99285

== ENCOUNTER → 2020-10-24 09:57 | Outpatient (CLI) | payer MEDICARE, OTHER, SELFPAY ==
[2020-10-17 08:28] VITALS: BMI 31.2
--- NOTE | 2020-10-24 09:58 | ECHOD_ITS ---
Reason For Study: Murmur Procedure This was a 2D Doppler, Color Flow transthoracic echocardiogram. Exam performed in department. Left Ventricle Normal LV size. The estimated ejection fraction is 55 %. No evidence for diastolic dysfunction. No regional wall motion abnormalities noted. Right Ventricle Normal RV size. Normal systolic function. Atria Normal left atrium. Normal right atrium. No doppler evidence for ASD. Mitral Valve There is no mitral valve stenosis. Trivial mitral valve insufficiency. Tricuspid Valve There is no tricuspid stenosis. Unable to estimate RV systolic pressure due to insufficient tricuspid regurgitant envelope. Trivial tricuspid valve insufficiency. Aortic Valve Trisinus/trileaflet aortic valve. Moderate diffuse aortic valve thickening. Moderate aortic stenosis. Mild (1+) aortic valve insufficiency. Pulmonic Valve There is no pulmonic valvular stenosis. No pulmonic valve insufficiency. Great Vessels Normal aortic root. Pericardium/Pleural No pericardial effusion. MMode/2D Measurements & Calculations LVIDd: 5.6 cm IVSd: 0.86 cm LVOT diam: 2.0 cm LVIDs: 3.3 cm LVPWd: 1.1 cm LVOT area: 3.2 cm2 FS: 41.7 % LA dimension: 3.7 cm LAV(MOD-bp): 53.4 ml LA A4 area: 19.0 cm2 LAV(MOD-bp) Indexed: 24.7 ml/m2 LAV(MOD-sp2): 46.8 ml LAV(MOD-sp4): 54.8 ml RA A4 area: 18.0 cm2 Time Measurements MV dec time: 0.31 sec Doppler Measurements & Calculations MV E max al: 135.0 cm/sec Lat Peak E' Al: 9.0 cm/sec Med Peak E' Al: 12.5 cm/sec MV A max al: 108.7 cm/sec E/E' lat: 14.9 E/E' med: 10.8 MV E/A: 1.2 MV V2 max: 136.8 cm/sec MV P1/2t max al: 136.8 cm/sec Ao V2 max: 338.2 cm/sec MV max P.5 mmHg MV P1/2t: 114.7 msec Ao max P.8 mmHg MV V2 mean: 68.1 cm/sec MV dec slope: 349.2 cm/sec2 Ao V2 mean: 228.0 cm/sec MV mean P.3 mmHg Ao mean P.8 mmHg MV V2 VTI: 48.2 cm MVA(P1/2t): 1.9 cm2 Ao V2 VTI: 78.1 cm MVA(VTI): 1.9 cm2 ANTONINA(I,D): 1.1 cm2 ANTONINA(V,D): 1.2 cm2 AI max al: 348.8 cm/sec LV V1 max: 126.6 cm/sec MR max al: 582.4 cm/sec AI max P.7 mmHg LV V1 max P.4 mmHg MR max P.7 mmHg LV V1 mean P.7 mmHg AI dec slope: 178.7 cm/sec2 LV V1 mean: 73.6 cm/sec AI P1/2t: 571.7 msec LV V1 VTI: 27.9 cm SV(LVOT): 89.3 ml PA V2 max: 99.2 cm/sec Interpretation Summary The estimated ejection fraction is 55 %. No evidence for diastolic dysfunction. Moderate aortic stenosis. Mild (1+) aortic valve insufficiency. Ordering Physician: Hetal Garcia Referring Physician: Wade Padilla Performed By: Freddie Donald RCS
== END ==
PROVIDERS: PCP Internal Medicine; Referring Provider Physician Assistant Medical; Visit Provider Physician Assistant Medical
DX: I35.0 Nonrheumatic aortic (valve) stenosis (principal); R00.2 Palpitations
CPT/HCPCS: 93225; 93226; 93306

== ENCOUNTER 2020-10-28 08:48 | Outpatient (RCR) | payer MEDICARE, OTHER, SELFPAY ==
[2020-05-30 12:41] VITALS: BMI 30.1
[2020-10-17 08:28] VITALS: BMI 31.2
[2020-10-28 12:49] LABS: International Normalized Ratio 2.7; Prothrombin Time (Protime)PT. 28.3 SECONDS (11.7-14.9)
== END 2020-11-06 23:59 ==
LOC: BIMLAB 08:48
PROVIDERS: Family Provider Internal Medicine; PCP Internal Medicine; Referring Provider Internal Medicine; Visit Provider Internal Medicine
DX: I82.409 Acute embolism and thrombosis of unspecified deep veins of unspecified lower extremity (principal); Z79.01 Long term (current) use of 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s
CPT/HCPCS: 36415; 85610

== ENCOUNTER 2020-11-29 09:06 | Outpatient (RCR) | payer MEDICARE, OTHER, SELFPAY ==
[2020-10-17 08:28] VITALS: BMI 31.2
[2020-11-15 08:05] VITALS: BMI 31.2
[2020-11-15 12:23] LABS: International Normalized Ratio 2.5; Prothrombin Time (Protime)PT. 26.7 SECONDS (11.7-14.9)
[2020-11-29 12:16] LABS: International Normalized Ratio 2.5; Prothrombin Time (Protime)PT. 26.2 SECONDS (11.7-14.9)
[2020-11-29 12:43] LABS: Anion Gap 5 (5-15); BUN 15 mg/dL (7-18); BUN/Creat Ratio 14.9 RATIO (10-20); Calcium,Total 8.9 mg/dL (8.5-10.1); Chloride 104 mmol/L (98-107); Creatinine, Serum 1.01 mg/dL (0.70-1.30); EST Glomerular Filtration Rate 78 mL/min (>60); Est Glom Filt Rate - Afr Amer 94 mL/min (>60); Glucose 107 mg/dL (74-106); Potassium 4.2 mmol/L (3.5-5.1); Sodium Level 136 mmol/L (136-145)
== END 2020-12-07 23:59 ==
LOC: BIMLAB 09:06
PROVIDERS: Nurse Practitioner Family; Family Provider Internal Medicine; PCP Internal Medicine; Referring Provider Internal Medicine; Visit Provider Internal Medicine
DX: I82.409 Acute embolism and thrombosis of unspecified deep veins of unspecified lower extremity (principal); Z79.01 Long term (current) use of 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s; I10 Essential (primary) hypertension
CPT/HCPCS: 36415; 80048; 85610

== ENCOUNTER 2020-12-30 09:00 | Outpatient (RCR) | payer MEDICARE, OTHER, SELFPAY ==
[2020-11-15 08:05] VITALS: BMI 31.2
[2020-12-09 12:21] LABS: International Normalized Ratio 2.2; Prothrombin Time (Protime)PT. 23.4 SECONDS (11.7-14.9)
[2020-12-30 13:46] LABS: International Normalized Ratio 2.9; Prothrombin Time (Protime)PT. 29.6 SECONDS (11.7-14.9)
== END 2021-01-06 23:59 ==
LOC: BIMLAB 09:00
PROVIDERS: Family Provider Internal Medicine; PCP Internal Medicine; Referring Provider Internal Medicine; Visit Provider Internal Medicine
DX: I82.409 Acute embolism and thrombosis of unspecified deep veins of unspecified lower extremity (principal); Z79.01 Long term (current) use of 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s
CPT/HCPCS: 36415; 85610

== ENCOUNTER 2021-01-31 17:18 | Emergency (ER) | payer MEDICARE, OTHER, SELFPAY ==
[2020-11-15 08:05] VITALS: BMI 31.2
[2021-01-31 17:19] VITALS: BP 145/70; PULSE 64; RESP 16; TEMP 36.8; O2SAT 95; BMI 30.4
--- NOTE | 2021-01-31 17:31 | EX.ED.GENINJ ---
HPI History of Present Illness Chief Complaint: Trauma Informant: patient Narrative Narrative: 70-year-old male was riding on a riding lawnmower up an embankment when it tilted and rolled over. He pinned his left foot underneath the steering well. He is able to extricate and call for help. He notes most of his pain is in the foot and ankle but he also notes some medial knee pain. He notes pain in the left iliac crest region. He also notes some lateral pain in the left neck. No loss of conscious. He is on Coumadin. He denies striking his head or having any headache. [facility] Medical History (Updated 01/31/21 @ 18:[address] Javid Bray, DO) Acute sinusitis Asthma with acute exacerbation Bronchitis Carotid artery stenosis Chest pain Chronic sinusitis COPD (chronic obstructive pulmonary disease) COPD (chronic obstructive pulmonary disease) Cough Deep vein blood clot of left lower extremity Deep vein thrombosis (DVT) Dyspnea 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 reflux disease) Heart murmur Hernia History of blood clots Hyperlipidemia Hyperlipidemia Hypersomnia Hypertension Intermittent claudication [facility] current use of 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 Obesity LIZA (obstructive sleep apnea) Peripheral neuropathy Post-phlebitic syndrome Skin lesion SOB (shortness of breath) Tobacco abuse Tobacco abuse Wheezing Home Medications calcium carbonate 600 mg calcium (1,500 mg) tablet 600 mg PO DAILY 08/24/19 [History Last Taken 12/24/19 08:00] gabapentin 300 mg capsule 300 mg PO BID 90 Days #180 cap 12/07/19 [Rx Last Taken 01/01/20 04:00] albuterol sulfate 90 mcg/actuation aerosol inhaler 2 puff INHALATION Q6H PRN #8.5 g 12/15/19 [Rx Last Taken 12/23/19 22:00] hydrochlorothiazide 25 mg tablet 25 mg PO QDAY #90 tab 03/21/20 [Rx Last Taken Unknown] ascorbic acid (vitamin C) 1,000 mg tablet 1 g PO DAILY tab 03/23/20 [History Last Taken Unknown] rosuvastatin 20 mg tablet 20 mg PO DAILY #90 tab 06/20/20 [Rx Last Taken Unknown] warfarin 2 mg tablet 2 mg PO DAILY #90 tab 09/21/20 [Rx Last Taken Unknown] warfarin 4 mg tablet 4 mg PO DAILY #90 tab 09/21/20 [Rx Last Taken Unknown] fluticasone fur. 100 mcg-umeclid 62.5 mcg-vilant 25 mcg inhalat.powder 1 inh INHALATION DAILY #60 ea 10/06/20 [Rx Last Taken Unknown] lisinopril 10 mg tablet 10 mg PO DAILY #90 tab 11/15/20 [Rx Last Taken Unknown] nicotine 14 mg/24 hr daily transdermal patch 14 mg TD QDAY #42 patch 11/15/20 [Rx Last Taken Unknown] Allergy/AdvReac Type Severity Reaction Status Date / Time Iodinated Contrast Media Allergy Unknown Verified 01/31/21 17:19 [Iodinated Contrast Media - IV Dye] oxycodone AdvReac Other Verified 01/31/21 17:19 Family History Father Lung cancer Uncle Cancer Grandfather Myocardial infarction Grandmother Myocardial infarction Mother Myocardial infarction, Onset Age: 90 Surgical History History of arthroscopy of left knee History of back surgery History of nasal polypectomy History of transurethral resection of prostate (~01/2020) History of umbilical hernia repair History of wisdom tooth extraction Right foot operation after an accident Status post hammer toe correction Social History Smoking Status: Current every day smoker tobacco type: cigarettes Tobacco: How many years used: 50 second hand exposure: Yes quit status: considering quitting alcohol intake: current alcohol intake frequency: holidays/special occasions only substance use type: does not use caffeine: Yes Type: coffee Number of servings: 2 and tea Number of servings: 1 what type of physical activity do you participate in: none ROS ROS ED Constitutional Constitutional ED: Denies chills or weight loss Eyes Eyes: Denies change in vision or diplopia ENT ENT ED: Denies ear pain, rhinorrhea or sore throat Cardiovascular Cardiovascular: Denies chest pain, orthopnea, palpitations or racing heartbeat Respiratory/Chest Respiratory/Chest: Denies cough, dyspnea or orthopnea Gastrointestinal Gastrointestinal: Denies abdominal pain, diarrhea, nausea or vomiting Genitourinary Genitourinary ED: Denies dysuria, hematuria or urinary frequency Musculoskeletal Musculoskeletal: Reports other Details: See history of present illness ; Denies arthralgias or myalgias Integumentary Denies abscess or rash Neurologic Neurologic: Denies headache(s) or weakness Psychiatric Psychiatric: Denies anxiety, depression, suicidal ideation or suicidal thoughts Endocrine Endocrinology: Denies polydipsia, polyphagia or polyuria Allergic/Immunologic Allergic/Immunologic ED: Denies mouth swelling, tongue swelling or urticaria EXAM Physical Exam Const Vital Signs: 01/31/21 17:19 01/31/21 17:28 Temperature 98.2 F Temperature Source Temporal Pulse Rate 64 Respiratory Rate 16 Respiratory Effort Normal Non-Labored Respiratory Depth Normal Respiratory Pattern Normal Blood Pressure 145/70 H Blood Pressure Mean 95 Pulse Ox 95 Oxygen Delivery Method Room Air Positive well nourished and well developed General Appearance ED: well developed HEENT Reports normocephalic, head/scalp atraumatic and moist mucous membranes Eyes PERRL and EOMs intact bilaterally Neck no lymphadenopathy, supple and no JVD Neck Narrative: Tender palpation lateral neck musculature Resp normal respiratory effort and clear to auscultation bilaterally Cardio regular rate, regular rhythm and no murmurs GI normal to inspection, nondistended, normoactive bowel sounds and non-tender Palpation: soft Back/Spine no CVA tenderness and normal ROM Extremity Extremity Narrative: Venous stasis changes to the bilateral legs. Tenderness to palpation over the left foot and ankle diffusely. There is a hematoma and tenderness over the medial aspect of the left knee. Tender to palpation over the posterior left iliac crest. General Extremety ED: Negative for edema General Extremity: Negative for edema Neuro oriented x3 and CN's II-XII intact bilaterally Sensorium / Orientation: alert Motor Exam: strength 5/5 throughout Psych mental status grossly normal Mood & Affect: Negative for depressed or tearful Skin no rashes or lesions noted and no wounds MDM MDM MDM Narrative Medical decision making narrative: My interpretation of the plain films of the left foot, ankle, knee, pelvis, and neck is no acute fracture. Patient will be discharged home with instructions to ice and rest. He is is to expect bruising to continue to form as he is on Coumadin. Andrzej wrap to be applied to left foot and ankle for support. Follow-up with primary care 10 to 14 days if not improved Radiography Diagnostic Testing: Radiology Impression Ankle X-Ray 01/31/21 17:34 IMPRESSION: Mild soft tissue swelling around the ankle. Electronically Signed: Danyel Hargrove MD at 19:02 EDT , Service support , Knee X-Ray 01/31/21 17:39 IMPRESSION: Degenerative arthrosis. Electronically Signed: Danyel Hargrove MD at 19:03 EDT , Service support , Foot X-Ray 01/31/21 17:40 IMPRESSION: No acute process Electronically Signed: Danyel Hargrove MD at 19:07 EDT , Service support , Pelvis X-Ray 01/31/21 18:04 IMPRESSION: No visualized fracture Electronically Signed: Danyel Hargrove MD at 19:12 EDT , Service support , Cervical Spine X-Ray 01/31/21 18:06 IMPRESSION: Degenerative changes of the cervical spine. Electronically Signed: Danyel Hargrove MD at 19:14 EDT , Service support , Discharge Plan Triage Chief Complaint: Trauma ED Provider: Javid Bray Dx/Rx/DC Orders Clinical Impression: Acute cervical myofascial strain, Hematoma of left knee region, Contusion of left lower extremity Instructions: ED Soft Tissue Contusion Prescriptions: No Action calcium carbonate [Calcium 600] 600 mg calcium (1,500 mg) tablet 600 mg PO DAILY RF: 0 albuterol sulfate 90 mcg/actuation HFA aerosol inhaler 2 puff INHALATION Q6H PRN (Reason: shortness of breath or wheezing) Qty: 8.5 RF: 3 ascorbic acid (vitamin C) 1,000 mg tablet 1 g PO DAILY RF: 0 Trelegy Ellipta 100-62.5-25 mcg blister with device 1 inh INHALATION DAILY Qty: 60 RF: 11 lisinopril 10 mg tablet 10 mg PO DAILY Qty: 90 RF: 1 nicotine 14 mg/24 hr patch 24 hour 14 mg TD QDAY Qty: 42 RF: 0 gabapentin 300 mg capsule 300 mg PO BID 90 Days Qty: 180 RF: 2 hydrochlorothiazide 25 mg tablet 25 mg PO QDAY Qty: 90 RF: 3 rosuvastatin 20 mg tablet 20 mg PO DAILY Qty: 90 RF: 3 warfarin 4 mg tablet 4 mg PO DAILY Qty: 90 RF: 2 warfarin 2 mg tablet 2 mg PO DAILY Qty: 90 RF: 3 Primary Care Provider: Wade Padilla Referrals: Wade Padilla MD [Primary Care Provider] - 10-14 Days if not better Disposition Disposition: Home, self care
--- NOTE | 2021-01-31 17:34 | RAD_ITS ---
STUDY: X-RAY - LEFT ANKLE REASON FOR EXAM: Male, 70 years old. 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 COMPARISON: None. FINDINGS: Normal visualized distal tibia and fibula. Normal medial and lateral malleoli. Normal tibiotalar articulation and ankle mortise. Normal visualized talus and calcaneus. The visualized subtalar, talonavicular, calcaneocuboid and tarsal articulations are normal. There is no demonstrated fracture. Mild enthesopathy is present at the syndesmosis. Mild soft tissue swelling is present around the ankle. RAD/Ankle min 3 Views IMPRESSION: Mild soft tissue swelling around the ankle. Electronically Signed: Danyel Hargrove MD at 19:02 EDT , Service support ,
--- NOTE | 2021-01-31 17:39 | RAD_ITS ---
STUDY: X-RAY - LEFT KNEE REASON FOR EXAM: Male, 70 years old. 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 PAIN IS ON THE MEDIAL ASPECT. TECHNIQUE: 4 view(s) of the knee. COMPARISON: None. FINDINGS: Normal visualized distal femur. Normal visualized proximal tibia and fibula. Normal proximal tibiofibular articulation. There is no demonstrated fracture. There is severe degenerative arthrosis of the medial femorotibial compartment with severe joint space narrowing. Normal lateral femorotibial compartment. There is mild degenerative arthrosis of the patellofemoral articulation. There is a soft tissue prominence in the suprapatellar region suggesting a small volume joint effusion. There are atherosclerotic calcifications. RAD/Knee 4 or More Views IMPRESSION: Degenerative arthrosis. Electronically Signed: Danyel Hargrove MD at 19:03 EDT , Service support ,
--- NOTE | 2021-01-31 17:40 | RAD_ITS ---
STUDY: X-RAY - LEFT FOOT CLINICAL: Male, 70 years old. 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 TECHNIQUE: 4 view(s) of the foot. COMPARISON: None. FINDINGS: Small plantar calcaneal spur noted. Small screw and healed osteotomy defect of the second metatarsal head noted. Small radiopaque or metallic density seen in the proximal shaft region of the third proximal phalanx. No visualized acute fracture. Normal talus, calcaneus, and tarsal bones. Normal visualized subtalar, talonavicular, calcaneocuboid, tarsal and tarsometatarsal articulations. Normal metatarsi. Normal metatarsophalangeal joint of the great toe. Normal tibial and fibular sesamoid bones. Normal interphalangeal joint of the great toe. Normal phalanges of the great toe. Normal second through fifth metatarsophalangeal joints. Normal interphalangeal joints and phalanges of the lesser toes. The soft tissue structures are unremarkable. RAD/Foot min 3 Views IMPRESSION: No acute process Electronically Signed: Danyel Hargrove MD at 19:07 EDT , Service support ,
--- NOTE | 2021-01-31 18:04 | RAD_ITS ---
STUDY: X-RAY - PELVIS REASON FOR EXAM: Male, 70 years old. injury to pelvis after rolling a riding mower onto himself, left posterior pelvic pain. TECHNIQUE: One view of the pelvis was obtained. COMPARISON: None. FINDINGS: There is a non-specific bowel gas pattern. Normal visualized soft tissue structures. No visualized fracture. Atherosclerotic calcifications are present. Normal bilateral iliac wings, sacroiliac joints and visualized sacrum. Normal visualized bilateral superior and inferior pubic rami. There is narrowing with sclerosis of the pubic symphysis. Normal ischial tuberosities. Normal visualized right femoral head. Normal right acetabulum. Normal right hip joint. Normal visualized left femoral head. Normal left acetabulum. Normal left hip joint. RAD/Pelvis 1 or 2 Views IMPRESSION: No visualized fracture Electronically Signed: Danyel Hargrove MD at 19:12 EDT , Service support ,
--- NOTE | 2021-01-31 18:06 | RAD_ITS ---
STUDY: X-RAY - CERVICAL SPINE REASON FOR EXAM: Male, 70 years old. pain after rolling riding mower onto himself. TECHNIQUE: 4 view(s) of the cervical spine were obtained. COMPARISON: None FINDINGS: Normal anterior atlantoaxial articulation. Normal odontoid process. Normal cervical lordosis. Moderate to significant disc space narrowing is present at C5-C6. Moderate disc space narrowing is present at C6-C7. Small anterior osteophytes are present at both levels. Preserved remaining disc spaces. No visualized acute fracture. The soft tissue structures are unremarkable. RAD/Cerv Spine 2 or 3 Views IMPRESSION: Degenerative changes of the cervical spine. Electronically Signed: Danyel Hargrove MD at 19:14 EDT , Service support ,
== END 2021-01-31 19:34 | disposition home or self-care (01) ==
PROVIDERS: Emergency Provider Emergency Medicine; PCP Internal Medicine
DX: S16.1XXA Strain of muscle, fascia and tendon at neck level, initial encounter (principal); S80.02XA Contusion of left knee, initial encounter; S80.12XA Contusion of left lower leg, initial encounter; M79.89 Other specified soft tissue disorders; W28.XXXA Contact with powered lawn mower, initial encounter; Y93.H9 Activity, other involving exterior property and land maintenance, building and construction; Y92.9 Unspecified place or not applicable; Y99.9 Unspecified external cause status; J44.9 Chronic obstructive pulmonary disease, unspecified; M17.12 Unilateral primary osteoarthritis, left knee; I10 Essential (primary) hypertension; E78.5 Hyperlipidemia, unspecified; G62.9 Polyneuropathy, unspecified; G47.33 Obstructive sleep apnea (adult) (pediatric); K21.9 Gastro-esophageal reflux disease without esophagitis; E66.9 Obesity, unspecified; F17.210 Nicotine dependence, cigarettes, uncomplicated; Z79.01 Long term (current) use of 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s; Z79.899 Other long term (current) drug therapy; Z86.718 Personal history of other venous thrombosis and embolism
CPT/HCPCS: 72040; 72170; 73564; 73610; 73630; 99282

== ENCOUNTER 2021-02-16 08:28 | Outpatient (RCR) | payer MEDICARE, OTHER, SELFPAY ==
[2020-11-15 08:05] VITALS: BMI 31.2
[2021-02-09 09:12] VITALS: BMI 30.4
[2021-02-09 12:17] LABS: International Normalized Ratio 1.6; Prothrombin Time (Protime)PT. 18.8 SECONDS (11.7-14.9)
[2021-02-16 12:10] LABS: International Normalized Ratio 2.5; Prothrombin Time (Protime)PT. 26.6 SECONDS (11.7-14.9)
== END 2021-03-08 23:59 ==
LOC: BIMLAB 08:28
PROVIDERS: Family Provider Internal Medicine; PCP Internal Medicine; Referring Provider Internal Medicine; Visit Provider Internal Medicine
DX: I82.409 Acute embolism and thrombosis of unspecified deep veins of unspecified lower extremity (principal); Z79.01 Long term (current) use of 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s
CPT/HCPCS: 36415; 85610

== ENCOUNTER → 2021-03-22 18:13 | Outpatient (CLI) | payer MEDICARE, OTHER, SELFPAY ==
[2021-03-22 16:10] VITALS: BMI 30.4
== END ==
PROVIDERS: PCP Internal Medicine; Visit Provider Physician Assistant
DX: N39.0 Urinary tract infection, site not specified (principal)
CPT/HCPCS: 87086

== ENCOUNTER → 2021-04-19 | Outpatient (CLI) | payer MEDICARE, OTHER, SELFPAY ==
[2021-03-22 16:10] VITALS: BMI 30.4
[2021-04-19 15:23] LABS: Bacteria 0 SEEN /hpf (None Seen); Mucous, Urine 0 SEEN /hpf (<or=2+); Red Blood Cells-Urine 0 SEEN /hpf (0-5); Squamous Epithelial Cells - UA 0 SEEN /hpf (0-5); White Blood Cells 0 SEEN /hpf (0-5)
[2021-04-19 15:35] LABS: Color, Urine Yellow (Yellow); Glucose, Dipstick Normal (Normal); Ketone-Dipstick Negative (Negative); Leukocyte Esterase-Dipstick Negative /ul (Negative); Nitrite-Dipstick Negative (Negative); Occult Blood-Urine Negative /ul (Negative); Protein-Dipstick Negative (Negative); Urine Bilirubin Dipstick Negative (Negative); Urine Clarity Clear (Clear); Urine Urobilinogen Normal (Normal)
== END | disposition home or self-care (01) ==
LOC: LABSPEC 15:15
PROVIDERS: PCP Internal Medicine; Visit Provider Physician Assistant
DX: N40.1 Benign prostatic hyperplasia with lower urinary tract symptoms (principal); R32 Unspecified urinary incontinence; R35.0 Frequency of micturition
CPT/HCPCS: 81001; 87086

== ENCOUNTER → 2021-05-03 06:49 | Outpatient (CLI) | payer MEDICARE, OTHER, SELFPAY ==
[2021-03-22 16:10] VITALS: BMI 30.4
--- NOTE | 2021-05-03 06:53 | CT_ITS ---
STUDY: LOW DOSE CT LUNG CANCER SCREENING REASON FOR EXAM: Male, 70 years old. Smoker and gt; 40 pack years RADIATION DOSAGE (If Supplied By Facility): CTDIvol = ( 3.02 ) mGy, DLP = ( 110.61 ) mGycm TECHNIQUE: No contrast was administered. Low dose technique was utilized (average mAS-38 and kVp 120). 1.25 mm axial source images with a slice interval of 1.25-mm were reconstructed in lung windows. 2.5 mm axial source images with a slice interval of 2.5-mm were reconstructed in lung windows. 5.0 mm axial source images with a slice interval of 5.0-mm were reconstructed in soft tissue windows. Nodule measured using lung windows on PACS and/or independent workstation with automated measurement of minimum and maximum diameter. Nodule measurement reported as average diameter rounded to the nearest whole number. Growth is defined as an increase ins size of greater than 1.5 mm. COMPARISON: Comparison is made with prior examination 05/02/2020. NODULES: None Emphysema: Mild bilateral apical scarring. Stable minimal scarring in the anterior lateral aspect of the lingular segment of the left upper lobe. Endobronchial lesion: None Aorta: Atherosclerotic plaque formation of the aortic arch. Coronary arteries: Coronary artery calcification. Mediastinal nodes: Small benign-appearing mediastinal lymph nodes. Other chest and abdominal findings: Degenerative changes of the thoracic spine. CT/Low Dose CT Lung Screening IMPRESSION: Lung-RADS category 2 - Continue annual screening with LDCT in 12 months. IMPORTANT NOTES FOR USE: ACR Lung-RADS Version 1.1 Assessment Categories Release Date: 2018 Category: Coded 0-4 bases on nodule(s) with highest degree of suspicion. Negative screen is defined as categories 1 and 2; a positive screen is defined as categories 3 and 4. Category 3 and 4A nodules that are unchanged on interval CT should be coded as category 2, and individuals returned to screening in 12 months. Category 4X: Category 3 or 4 nodules with additional imaging findings that increase the suspicion of lung cancer, such as spiculation, GGN that doubles in size in 1 year, enlarged lymph notes, etc. Category Modifiers: S (significant finding unrelated to lung cancer) Electronically Signed: Grzegorz Delong MD at 13:05 EDT , Service support ,
== END ==
PROVIDERS: PCP Internal Medicine; Referring Provider Nurse Practitioner Acute Care; Visit Provider Nurse Practitioner Acute Care
DX: F17.210 Nicotine dependence, cigarettes, uncomplicated (principal)
CPT/HCPCS: 71271

== ENCOUNTER → 2021-05-31 09:34 | Outpatient (CLI) | payer MEDICARE, OTHER, SELFPAY ==
--- NOTE | 2021-05-31 09:36 | CDU_ITS ---
Reason For Study: Dizziness Rt. Velocities/BP Lt. Velocities/BP Prox CCA 84/7.6 cm/sec. Prox CCA 76.5/9 cm/sec. Mid CCA 88.9/14.9 cm/sec. Mid CCA 64.2/9 cm/sec. Dist CCA 63/8.2 cm/sec. Dist CCA 70.4/9 cm/sec. Prox ICA 119.2/20.4 cm/sec. Prox ICA 66.3/11.5 cm/sec. Mid ICA 117/16 cm/sec. Mid ICA 137.5/17 cm/sec. Dist ICA 103.8/18.2 cm/sec. Dist ICA 90/18.8. cm/sec. Rt. ICA/CCA = 1.42. Lt. ICA/CCA = 1.96. Prox ECA 138.9/7.2 cm/sec. Prox ECA 126.6/9.7 cm/sec. Rt. Vert. 81.9/18.2 cm/sec. Lt. Vert. 25.8/6.9 cm/sec. Right Extracranial There is homogeneous, smooth atherosclerotic plaque noted in the right common carotid artery. There is heterogeneous, irregular atherosclerotic plaque noted in the right internal carotid artery. There is homogeneous, smooth atherosclerotic plaque noted in the right external carotid artery. Antegrade flow is noted in the right vertebral artery. Left Extracranial There is homogeneous, smooth atherosclerotic plaque noted in the left common carotid artery. There is heterogeneous, irregular atherosclerotic plaque noted in the left internal carotid artery. There is homogeneous, smooth atherosclerotic plaque noted in the left external carotid artery. Abnormal wave morphology noted in the Left Vertebral artery. Procedure Carotid Duplex [id number]. This is a Carotid Duplex examination using B-mode, color flow and specral Doppler. Exam performed in department. VL/Carotid Duplex Ultrasound Interpretation Summary Irregular calcific plaque at the proximal right internal carotid artery with le ss than 50% stenosis. Less than 50% stenosis right external carotid artery Irregular calcific plaque at the proximal left internal carotid artery with 50 to 69% stenosis. Less than 50% stenosis left external carotid artery Patent and antegrade vertebral arteries bilaterally From a previous examination of September 12, 2017 there is no change involving the right internal carotid artery and slight progression of disease involving the left internal ca rotid artery where previously there had been less than 50% stenosis Ordering Physician: Hetal Garcia Referring Physician: Wade Padilla Performed By: Kerry Mcmahon RVT
== END ==
PROVIDERS: PCP Internal Medicine; Referring Provider Physician Assistant Medical; Visit Provider Physician Assistant Medical
DX: I65.23 Occlusion and stenosis of bilateral carotid arteries (principal); I82.409 Acute embolism and thrombosis of unspecified deep veins of unspecified lower extremity; Z79.01 Long term (current) use of 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s
CPT/HCPCS: 36415; 85610; 93880

== ENCOUNTER 2021-05-31 10:04 | Outpatient (RCR) | payer MEDICARE, OTHER, SELFPAY ==
[2021-02-09 09:12] VITALS: BMI 30.4
[2021-05-31 10:48] LABS: International Normalized Ratio 1.9; Prothrombin Time (Protime)PT. 21.1 SECONDS (11.7-14.9)
== END 2021-06-08 23:59 ==
LOC: BIMLAB 10:04
PROVIDERS: Family Provider Internal Medicine; PCP Internal Medicine; Referring Provider Internal Medicine; Visit Provider Internal Medicine
DX: I82.409 Acute embolism and thrombosis of unspecified deep veins of unspecified lower extremity (principal); Z79.01 Long term (current) use of 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s
CPT/HCPCS: 36415; 85610

== ENCOUNTER 2021-06-01 16:38 | Emergency (ER) | payer MEDICARE, OTHER, SELFPAY ==
[2021-06-01 16:39] VITALS: BP 151/60; PULSE 62; RESP 14; TEMP 35.8; O2SAT 96; BMI 30.2
--- NOTE | 2021-06-01 17:00 | RAD_ITS ---
STUDY: X-RAY - RIGHT SHOULDER REASON FOR EXAM: Male, 70 years old. Normal. TECHNIQUE: 3 view(s) of the shoulder. COMPARISON: Right clavicle, 06/01/2021. FINDINGS: Normal glenohumeral articulation. There is degenerative arthrosis of the acromioclavicular joint without inferior osseous spur formation. Normal acromion. No fracture Normal humeral head and visualized proximal humerus. The soft tissue structures are unremarkable. Normal visualized pulmonary apex. RAD/Shoulder min 2 Views IMPRESSION: Degenerative changes of the acromioclavicular joint. There is no acute fracture or dislocation. Electronically Signed: Michael Edge DO at 18:50 EDT Tel [phone], Service support ,
--- NOTE | 2021-06-01 17:00 | RAD_ITS ---
STUDY: X-RAY - RIGHT CLAVICLE REASON FOR EXAM: Male, 70 years old. Trauma. TECHNIQUE: 2 view(s) of the clavicle. COMPARISON: Older, 06/01/2021. FINDINGS: Normal clavicle. There is minimal widening of the AC joint consistent with a Type I acromioclavicular dislocation. There is no widening of the coracoclavicular distance. Normal visualized sternoclavicular articulation. Normal visualized pulmonary apex. RAD/Clavicle IMPRESSION: Degenerative changes of the acromioclavicular joint. Electronically Signed: Michael Edge DO at 18:50 EDT Tel [phone], Service support ,
[2021-06-01] MEDS: Ondansetron ODT 4 MG Tablet PO (17:18)
[2021-06-01] MEDS: Morphine 4 MG/ML Syringe IM (17:20)
--- NOTE | 2021-06-01 20:53 | EDS_ITS ---
HPI History of Present Illness Chief Complaint: Upper Extremity Injury Narrative Narrative: Patient is a 70-year-old male who states approximately 2 hours prior to arrival he was on his deck when he slipped and fell striking his right shoulder region into a wooden pole. He denies striking his head or any loss of consciousness or blood thinner use. 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 Obesity LIZA (obstructive sleep apnea) Peripheral neuropathy Post-phlebitic syndrome Skin lesion Tobacco abuse Urinary frequency Home Medications calcium carbonate 600 mg calcium (1,500 mg) tablet 600 mg PO DAILY 08/24/19 [History Last Taken 12/24/19 08:00] albuterol sulfate 90 mcg/actuation aerosol inhaler 2 puff INHALATION Q6H PRN #8.5 g 12/15/19 [Rx Last Taken 12/23/19 22:00] ascorbic acid (vitamin C) 1,000 mg tablet 1 g PO DAILY tab 03/23/20 [History Last Taken Unknown] rosuvastatin 20 mg tablet 20 mg PO DAILY #90 tab 06/20/20 [Rx Last Taken Unknown] warfarin 2 mg tablet 2 mg PO DAILY #90 tab 09/21/20 [Rx Last Taken Unknown] warfarin 4 mg tablet 4 mg PO DAILY #90 tab 09/21/20 [Rx Last Taken Unknown] fluticasone fur. 100 mcg-umeclid 62.5 mcg-vilant 25 mcg inhalat.powder 1 inh INHALATION DAILY #60 ea 10/06/20 [Rx Last Taken Unknown] leg brace #1 ea 02/09/21 [Rx Last Taken Unknown] leg brace #1 ea 02/09/21 [Rx Last Taken Unknown] gabapentin 300 mg capsule 300 mg PO BID 90 Days #180 cap 03/14/21 [Rx Last Taken Unknown] lisinopril 20 mg tablet 20 mg PO DAILY #90 tab 05/31/21 [Rx Last Taken Unknown] hydrocodone-acetaminophen 1 tab PO Q6H PRN 3 Days #12 tab 06/01/21 [Rx Last Taken Unknown] Allergy/AdvReac Type Severity Reaction Status Date / Time Iodinated Contrast Media Allergy Unknown Verified 06/01/21 16:39 [Iodinated Contrast Media - IV Dye] oxycodone AdvReac Other Verified 06/01/21 16:39 Family History Father Lung cancer Uncle Cancer Grandfather Myocardial infarction Grandmother Myocardial infarction Mother Myocardial infarction, Onset Age: 90 Surgical History History of arthroscopy of left knee History of back surgery History of nasal polypectomy History of transurethral resection of prostate (~01/2020) History of umbilical hernia repair History of wisdom tooth extraction Right foot operation after an accident Status post hammer toe correction Social History Smoking Status: Current every day smoker tobacco type: cigarettes Tobacco: How many years used: 50 second hand exposure: Yes quit status: considering quitting alcohol intake: current alcohol intake frequency: holidays/special occasions only substance use type: does not use caffeine: Yes Type: coffee Number of servings: 2 and tea Number of servings: 1 what type of physical activity do you participate in: none ROS ROS ED Constitutional Constitutional ED: Denies chills or fever(s) ENT ENT ED: Denies sore throat Cardiovascular Cardiovascular: Denies chest pain Respiratory/Chest Respiratory/Chest: Denies cough or dyspnea Gastrointestinal Gastrointestinal: Denies abdominal pain, diarrhea, nausea or vomiting Genitourinary Genitourinary ED: Denies dysuria Musculoskeletal Musculoskeletal: Reports other Details: Positive right shoulder pain ; Denies back pain, myalgias or neck pain Integumentary Denies Abrasions or rash Neurologic Neurologic: Denies headache(s) Hematologic/Lymphatic Hematologic/Lymphatic: Denies easy bleeding or easy bruising EXAM Physical Exam Const Vital Signs: 06/01/21 16:39 Temperature 96.4 F L Temperature Source Temporal Pulse Rate 62 Respiratory Rate 14 Blood Pressure 151/60 H Blood Pressure Mean 90 Pulse Ox 96 Oxygen Delivery Method Room Air Positive well nourished and well developed General Appearance ED: well developed HEENT Reports moist mucous membranes normocephalic and atraumatic Eyes PERRL and EOMs intact bilaterally Neck full ROM and supple Neck Narrative: No bony deformity or step-off of the cervical spine no midline pain with palpation Chest Wall palpation of chest normal Resp normal respiratory effort and clear to auscultation bilaterally Cardio regular rate and regular rhythm GI non-tender and non-distended Auscultation: normoactive bowel sounds Palpation: soft Back/Spine Back/Spine Narrative: No bony deformity step-off of the thoracic or lumbar spine Extremity Extremity Narrative: Right upper extremity is neurovascularly intact; AIN/PIN are intact and normal. Active range of motion is decreased secondary to pain. There is no obvious bony deformity or joint effusion. Negative sulcus sign. There is pain with palpation over top the AC joint. Otherwise the remainder the exam is normal Neuro oriented x3 and CN's II-XII intact bilaterally Sensorium / Orientation: alert Psych mental status grossly normal Skin no rashes or lesions noted MDM MDM MDM Narrative Medical decision making narrative: Patient reported mechanical fall and therefore there is no need for cardiac or syncope work-up. X-rays of the shoulder and clavicle were obtained which show changes consistent with a grade 1 AC joint separation but otherwise no acute fracture or dislocation. We did discuss patient could have damage to his supraspinatus but at this time as he is neurovascularly intact with no obvious dislocation or fracture he does not need further work-up other than a sling and can follow-up on an outpatient basis for further evaluation Radiography Diagnostic Testing: Radiology Impression Clavicle X-Ray 06/01/21 17:00 IMPRESSION: Degenerative changes of the acromioclavicular joint. Electronically Signed: Michael Edge DO at 18:50 EDT Tel [phone], Service support , Shoulder X-Ray 06/01/21 17:00 IMPRESSION: Degenerative changes of the acromioclavicular joint. There is no acute fracture or dislocation. Electronically Signed: Michael Edge DO at 18:50 EDT Tel [phone], Service support , Discharge Plan Triage Chief Complaint: Upper Extremity Injury ED Provider: Norman Bobby Dx/Rx/DC Orders Clinical Impression: Acromioclavicular joint separation, type 1 Instructions: Rotator Cuff Injury, ED Sprain AC Joint Prescriptions: New hydrocodone-acetaminophen 5-325 mg tablet 1 tab PO Q6H PRN (Reason: pain) 3 Days Qty: 12 RF: 0 No Action calcium carbonate [Calcium 600] 600 mg calcium (1,500 mg) tablet 600 mg PO DAILY RF: 0 albuterol sulfate 90 mcg/actuation HFA aerosol inhaler 2 puff INHALATION Q6H PRN (Reason: shortness of breath or wheezing) Qty: 8.5 RF: 3 ascorbic acid (vitamin C) 1,000 mg tablet 1 g PO DAILY RF: 0 Trelegy Ellipta 100-62.5-25 mcg blister with device 1 inh INHALATION DAILY Qty: 60 RF: 11 (DME) Ankle Brace Misc See Rx Instructions .ROUTE .MEDSUPPLY Qty: 1 RF: 0 (DME) Knee Support Brace Misc See Rx Instructions .ROUTE .MEDSUPPLY Qty: 1 RF: 0 rosuvastatin 20 mg tablet 20 mg PO DAILY Qty: 90 RF: 3 warfarin 4 mg tablet 4 mg PO DAILY Qty: 90 RF: 2 warfarin 2 mg tablet 2 mg PO DAILY Qty: 90 RF: 3 gabapentin 300 mg capsule 300 mg PO BID 90 Days Qty: 180 RF: 2 lisinopril 20 mg tablet 20 mg PO DAILY Qty: 90 RF: 3 Primary Care Provider: Wade Padilla Referrals: Wade Padilla MD [Primary Care Provider] - Disposition Disposition: Home, Self Care
[2021-06-01 21:31] VITALS: BP 139/65; PULSE 69; RESP 16; O2SAT 97
== END 2021-06-01 21:33 | disposition home or self-care (01) ==
PROVIDERS: Emergency Provider Emergency Medicine; PCP Internal Medicine
DX: S43.101A Unspecified dislocation of right acromioclavicular joint, initial encounter (principal); W01.10XA Fall on same level from slipping, tripping and stumbling with subsequent striking against unspecified object, initial encounter; Y93.9 Activity, unspecified; Y92.008 Other place in unspecified non-institutional (private) residence as the place of occurrence of the external cause; Y99.9 Unspecified external cause status; I35.0 Nonrheumatic aortic (valve) stenosis; J44.9 Chronic obstructive pulmonary disease, unspecified; I10 Essential (primary) hypertension; E78.5 Hyperlipidemia, unspecified; G62.9 Polyneuropathy, unspecified; J45.909 Unspecified asthma, uncomplicated; G47.33 Obstructive sleep apnea (adult) (pediatric); K21.9 Gastro-esophageal reflux disease without esophagitis; E66.9 Obesity, unspecified; F17.210 Nicotine dependence, cigarettes, uncomplicated; Z79.01 Long term (current) use of 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s; Z79.899 Other long term (current) drug therapy; Z86.718 Personal history of other venous thrombosis and embolism
CPT/HCPCS: 73000; 73030; 96372; 99283

== ENCOUNTER 2021-07-07 08:55 | Outpatient (RCR) | payer MEDICARE, OTHER, SELFPAY ==
[2021-06-09 00:06] VITALS: BMI 30.4
[2021-06-09 15:10] LABS: International Normalized Ratio 2.6
[2021-07-07 12:05] LABS: International Normalized Ratio 2.3; Prothrombin Time (Protime)PT. 24.3 SECONDS (11.7-14.9)
== END 2021-07-09 23:59 ==
LOC: BIMLAB 08:55
PROVIDERS: Family Provider Internal Medicine; PCP Internal Medicine; Referring Provider Internal Medicine; Visit Provider Internal Medicine
DX: I82.409 Acute embolism and thrombosis of unspecified deep veins of unspecified lower extremity (principal); Z79.01 Long term (current) use of 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s
CPT/HCPCS: 36415; 85610

== ENCOUNTER → 2021-07-19 | Outpatient (CLI) | payer MEDICARE, OTHER, SELFPAY | END | disposition home or self-care (01) | LOC: LABSPEC 11:07 | PROVIDERS: PCP Internal Medicine; Referring Provider Internal Medicine; Visit Provider Internal Medicine | DX: U07.1 COVID-19 (principal) | CPT/HCPCS: 87635; U0005; U0003 ==

== ENCOUNTER 2021-07-20 16:38 | Outpatient (CLI) | payer MEDICARE, OTHER, SELFPAY ==
[2021-07-20] MEDS: 0.9% Saline Lock 10 ML Syringe IV (16:53)
[2021-07-20 16:57] VITALS: BP 122/44; PULSE 70; RESP 16; TEMP 36.6; O2SAT 97; BMI 28.7
[2021-07-20 17:45] VITALS: BP 117/47; PULSE 64; RESP 16; TEMP 36.6; O2SAT 94
[2021-07-20 18:46] VITALS: BP 133/48; PULSE 67; RESP 16; TEMP 36.5; O2SAT 95
== END 2021-07-20 18:46 | disposition home or self-care (01) ==
LOC: MS3OUT 16:39 → MS3 16:40
PROVIDERS: PCP Internal Medicine; Visit Provider Nurse Practitioner Adult Health
DX: Z23 Encounter for immunization (principal); U07.1 COVID-19
CPT/HCPCS: J7050; M0245; Q0245; A4216

== ENCOUNTER → 2021-08-19 | Outpatient (CLI) | payer MEDICARE, OTHER, SELFPAY | END | disposition home or self-care (01) | LOC: LABSPEC 10:33 | PROVIDERS: PCP Internal Medicine; Referring Provider Otolaryngology Otolaryngology/Facial Plastic Surgery; Visit Provider Otolaryngology Otolaryngology/Facial Plastic Surgery | DX: B37.9 Candidiasis, unspecified (principal) | CPT/HCPCS: 87070; 87077; 87186 ==

== ENCOUNTER 2021-09-11 15:02 | Outpatient (CLI) | payer MEDICARE, OTHER, SELFPAY | END 2021-09-11 23:59 | disposition short-term general hospital (02) | LOC: LABSPEC 15:04 | PROVIDERS: PCP Internal Medicine; Referring Provider Otolaryngology Otolaryngology/Facial Plastic Surgery; Visit Provider Otolaryngology Otolaryngology/Facial Plastic Surgery | DX: J02.9 Acute pharyngitis, unspecified (principal) | CPT/HCPCS: 87070 ==

== ENCOUNTER 2021-09-22 08:42 | Outpatient (RCR) | payer MEDICARE, OTHER, SELFPAY ==
[2021-07-10 00:07] VITALS: BMI 30.4
[2021-09-15 12:52] LABS: International Normalized Ratio 3.4; Prothrombin Time (Protime)PT. 33.8 SECONDS (11.7-14.9)
[2021-09-15 13:18] LABS: Anion Gap 7 (5-15); BUN 16 mg/dL (7-18); BUN/Creat Ratio 16.3 RATIO (10-20); Calcium,Total 8.7 mg/dL (8.5-10.1); Chloride 108 mmol/L (98-107); Creatinine, Serum 0.98 mg/dL (0.70-1.30); EST Glomerular Filtration Rate 80 mL/min (>60); Est Glom Filt Rate - Afr Amer 97 mL/min (>60); Glucose 108 mg/dL (74-106); Potassium 3.8 mmol/L (3.5-5.1); Sodium Level 141 mmol/L (136-145)
[2021-09-22 11:17] LABS: International Normalized Ratio 1.9; Prothrombin Time (Protime)PT. 20.6 SECONDS (11.7-14.9)
== END 2021-10-09 23:59 ==
LOC: BIMLAB 08:42
PROVIDERS: Family Provider Internal Medicine; PCP Internal Medicine; Referring Provider Internal Medicine; Visit Provider Internal Medicine
DX: I10 Essential (primary) hypertension (principal); I82.409 Acute embolism and thrombosis of unspecified deep veins of unspecified lower extremity; Z79.01 Long term (current) use of 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s
CPT/HCPCS: 36415; 80048; 85610

== ENCOUNTER 2021-10-11 09:26 | Outpatient (RCR) | payer MEDICARE, OTHER, SELFPAY ==
[2021-10-10 00:04] VITALS: BMI 30.4
[2021-10-11 12:21] LABS: International Normalized Ratio 2.9; Prothrombin Time (Protime)PT. 29.5 SECONDS (11.7-14.9)
== END 2021-11-06 23:59 ==
LOC: BIMLAB 09:26
PROVIDERS: Family Provider Internal Medicine; PCP Internal Medicine; Referring Provider Internal Medicine; Visit Provider Internal Medicine
DX: I82.409 Acute embolism and thrombosis of unspecified deep veins of unspecified lower extremity (principal); Z79.01 Long term (current) use of 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s
CPT/HCPCS: 36415; 85610

== ENCOUNTER 2021-12-01 09:54 | Outpatient (RCR) | payer MEDICARE, OTHER, SELFPAY ==
[2021-11-07 00:13] VITALS: BMI 30.4
[2021-11-09 12:42] LABS: International Normalized Ratio 3.1; Prothrombin Time (Protime)PT. 31.1 SECONDS (11.7-14.9)
[2021-11-13 12:07] LABS: Absolute Lymphocyte Count 1.64 X10^3/uL (0.83-4.51); Absolute Neutrophil Count 3.2 X10^3/uL (2.0-7.7); Basophil# 0.03 X10^3/uL; Basophil% 0.5 % (0-1); Eosinophil# 0.15 X10^3/uL; Eosinophils% 2.6 % (0-5); Hematocrit 44.4 % (40-54); Hemoglobin 14.4 g/dL (13.0-16.5); Lymphocyte # 1.64 X10^3/ul (0.83-4.51); Lymphocyte % 28.3 % (19-41); Mean Corp Hgb Conc 32.4 g/dL (32-36); Mean Corpuscular Hgb 34.3 pg (27.0-32.0); Mean Corpuscular Volume 105.7 fL (80-94); Mean Platelet Vol. 10.3 fl (6.2-12.0); Monocyte# 0.76 X10^3/uL; Monocyte% 13.1 % (0-10); NRBC Flagged by Analyzer 0 % (0-5); Neutrophil # 3.19 X10^3/uL (2.7-7.7); Neutrophil % 55.2 % (47-70); Platelet Count 184 K/mm3 (150-450); RBC Distribution Width SD 54.5 fl (35.1-43.9); White Blood Count 5.8 K/mm3 (4.4-11.0)
[2021-11-13 12:19] LABS: International Normalized Ratio 3.1; Prothrombin Time (Protime)PT. 31.2 SECONDS (11.7-14.9)
[2021-11-13 12:27] LABS: ALB/GLOB Ratio 0.9 RATIO (0.9-2.4); AST(SGOT) 20 U/L (15-37); Alanine Aminotransfer ALT/SGPT 31 U/L (16-61); Albumin, Serum 3.6 g/dL (3.2-5.0); Alkaline Phosphatase 60 U/L (45-117); Anion Gap 4 (5-15); BUN 26 mg/dL (7-18); Calcium,Total 8.9 mg/dL (8.5-10.1); Chloride 107 mmol/L (98-107); Cholesterol 135 mg/dL (200); Creatinine, Serum 1.18 mg/dL (0.70-1.30); EST Glomerular Filtration Rate 65 mL/min (>60); Est Glom Filt Rate - Afr Amer 78 mL/min (>60); Glucose 120 mg/dL (74-106); High Density Lipoprotein 35 mg/dL; Potassium 4.6 mmol/L (3.5-5.1); Protein, Total 7.6 g/dL (6.4-8.2); Sodium Level 137 mmol/L (136-145); Triglycerides 88 mg/dL; Very Low Density Lipoprotein 18 mg/dL (5-40)
[2021-12-01 12:16] LABS: Prothrombin Time (Protime)PT. 30.2 SECONDS (11.7-14.9)
== END 2021-12-07 23:59 | disposition home or self-care (01) ==
LOC: BIMLAB 09:54
PROVIDERS: Family Provider Internal Medicine; PCP Internal Medicine; Referring Provider Internal Medicine; Visit Provider Internal Medicine
DX: I82.409 Acute embolism and thrombosis of unspecified deep veins of unspecified lower extremity (principal); Z79.01 Long term (current) use of 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s; E78.5 Hyperlipidemia, unspecified
CPT/HCPCS: 36415; 80053; 80061; 85025; 85610

== ENCOUNTER 2022-01-12 08:39 | Outpatient (RCR) | payer MEDICARE, OTHER, SELFPAY ==
[2021-12-08 00:17] VITALS: BMI 30.4
[2022-01-12 12:36] LABS: International Normalized Ratio 2.7; Prothrombin Time (Protime)PT. 27.9 SECONDS (11.7-14.9)
== END 2022-02-06 23:59 ==
LOC: BIMLAB 08:39
PROVIDERS: Family Provider Internal Medicine; PCP Internal Medicine; Referring Provider Internal Medicine; Visit Provider Internal Medicine
DX: Z79.01 Long term (current) use of 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s; Z86.718 Personal history of other venous thrombosis and embolism
CPT/HCPCS: 36415; 85610

== ENCOUNTER 2022-02-21 08:33 | Outpatient (RCR) | payer MEDICARE, OTHER, SELFPAY ==
[2022-02-07 00:10] VITALS: BMI 30.4
[2022-02-21 12:40] LABS: International Normalized Ratio 2.2; Prothrombin Time (Protime)PT. 23.7 SECONDS (11.7-14.9)
== END 2022-03-08 23:59 ==
LOC: BIMLAB 08:33
PROVIDERS: Family Provider Internal Medicine; PCP Internal Medicine; Referring Provider Internal Medicine; Visit Provider Internal Medicine
DX: Z79.01 Long term (current) use of 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s (principal)
CPT/HCPCS: 36415; 85610

== ENCOUNTER → 2022-03-19 | Outpatient (CLI) | payer MEDICARE, OTHER, SELFPAY | END | disposition home or self-care (01) | LOC: LABSPEC 14:32 | PROVIDERS: PCP Internal Medicine; Referring Provider Physician Assistant; Visit Provider Physician Assistant | DX: S50.819A Abrasion of unspecified forearm, initial encounter (principal); X58.XXXA Exposure to other specified factors, initial encounter | CPT/HCPCS: 87070; 87205 ==

== ENCOUNTER → 2022-03-27 | Outpatient (CLI) | payer MEDICARE, OTHER, SELFPAY ==
[2022-03-27 12:30] LABS: International Normalized Ratio 1.7
== END | disposition home or self-care (01) ==
LOC: BIMLAB 08:07
PROVIDERS: PCP Internal Medicine; Visit Provider Internal Medicine
DX: Z79.01 Long term (current) use of 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s (principal)
CPT/HCPCS: 36415; 85610

== ENCOUNTER → 2022-04-23 | Outpatient (CLI) | payer MEDICARE, OTHER, SELFPAY ==
--- NOTE | 2022-04-23 08:46 | ECHOD_ITS ---
Reason For Study: Murmur Procedure This was a 2D Doppler, Color Flow transthoracic echocardiogram. Exam performed in department. Left Ventricle Normal LV size. Left ventricular systolic function is normal. The estimated ejection fraction is 55 %. No regional wall motion abnormalities noted. Right Ventricle Normal RV size. Normal systolic function. Atria Normal left atrium. Normal right atrium. Mitral Valve Bileaflet diffuse mitral valve thickening. There is mild to moderate mitral annular calcification. Mild-Moderate (1-2+) eccentric mitral valve insufficiency. Tricuspid Valve Normal tricuspid valve. Mild tricuspid valve insufficiency. Aortic Valve Trisinus/trileaflet aortic valve. Moderate focal aortic valve thickening. Peak aortic valve gradient 56 mmHg. Mean aortic valve gradient 27 mmHg. Moderate aortic stenosis. Calculated aortic valve area (continuity equation) is 1.2 cm2. Mild (1+) aortic valve insufficiency. Pulmonic Valve Normal pulmonic valve. Great Vessels Normal aortic root. The pulmonary artery is normal size. Inferior vena cava collapse with respiration. Pericardium/Pleural No pericardial effusion. MMode/2D Measurements & Calculations LVIDd: 5.1 cm IVSd: 1.1 cm LVOT diam: 2.0 cm LVIDs: 3.5 cm LVPWd: 1.1 cm LVOT area: 3.3 cm2 RVDd: 4.0 cm FS: 32.0 % Ao root diam: 2.4 cm LAV(MOD-bp): 52.1 ml LA A4 area: 16.8 cm2 ACS: 1.1 cm LAV(MOD-bp) Indexed: 25.0 ml/m2 LA dimension: 3.8 cm LAV(MOD-sp2): 58.9 ml LAV(MOD-sp4): 46.4 ml RA A4 area: 17.3 cm2 Time Measurements MV dec time: 0.31 sec Doppler Measurements & Calculations MV E max josephine: 135.8 cm/sec MV V2 max: 146.0 cm/sec MV P1/2t max josephine: 146.7 cm/sec MV A max josephine: 88.4 cm/sec MV max P.5 mmHg MV P1/2t: 109.2 msec MV E/A: 1.5 MV V2 mean: 56.9 cm/sec MV dec slope: 393.3 cm/sec2 MV mean P.9 mmHg MV V2 VTI: 53.4 cm MVA(P1/2t): 2.0 cm2 MVA(VTI): 2.3 cm2 Ao V2 max: 373.4 cm/sec AI max josephine: 377.7 cm/sec LV V1 max: 138.9 cm/sec Ao max P.8 mmHg AI max P.1 mmHg LV V1 max P.7 mmHg Ao V2 mean: 243.7 cm/sec LV V1 mean P.8 mmHg Ao mean P.4 mmHg AI dec slope: 176.8 cm/sec2 LV V1 mean: 89.9 cm/sec Ao V2 VTI: 92.9 cm AI P1/2t: 625.8 msec LV V1 VTI: 38.3 cm ANTONINA(I,D): 1.3 cm2 ANTONINA(V,D): 1.2 cm2 MR max josephine: 636.2 cm/sec SV(LVOT): 124.9 ml PA V2 max: 88.5 cm/sec MR max P.9 mmHg PA V2 mean: 65.4 cm/sec MR mean josephine: 530.9 cm/sec MR mean P.1 mmHg MR VTI: 254.6 cm TR max josephine: 216.7 cm/sec TR max P.8 mmHg ECHO/Echo Complete Interpretation Summary Normal LV size. Left ventricular systolic function is normal. The estimated ejection fraction is 55 %. There is mild to moderate mitral annular calcification. Mild tricuspid valve insufficiency. Moderate focal aortic valve thickening. Moderate aortic stenosis. Mild (1+) aortic valve insufficiency. Mean aortic valve gradient 27 mmHg. Ordering Physician: Josafat Rhodes Referring Physician: Wade Padilla Performed By: Freddie Donald RCS
== END | disposition home or self-care (01) ==
LOC: CVS 08:43
PROVIDERS: PCP Internal Medicine; Visit Provider Internal Medicine Cardiovascular Disease
DX: R01.1 Cardiac murmur, unspecified (principal); G47.33 Obstructive sleep apnea (adult) (pediatric)
CPT/HCPCS: 93306

== ENCOUNTER 2022-05-25 08:27 | Outpatient (RCR) | payer MEDICARE, OTHER, SELFPAY ==
[2022-03-09 00:13] VITALS: BMI 30.4
[2022-05-25 12:23] LABS: International Normalized Ratio 2.7; Prothrombin Time (Protime)PT. 28.1 SECONDS (11.7-14.9)
== END 2022-06-08 23:59 ==
LOC: BIMLAB 08:27
PROVIDERS: Family Provider Internal Medicine; PCP Internal Medicine; Referring Provider Internal Medicine; Visit Provider Internal Medicine
DX: Z79.01 Long term (current) use of 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s (principal)
CPT/HCPCS: 36415; 85610

== ENCOUNTER 2022-07-06 08:30 | Outpatient (RCR) | payer MEDICARE, OTHER, SELFPAY ==
[2022-06-09 00:14] VITALS: BMI 30.4
[2022-06-27 12:11] LABS: International Normalized Ratio 3.4; Prothrombin Time (Protime)PT. 34.1 SECONDS (11.7-14.9)
[2022-06-27 12:21] LABS: Anion Gap 4 (5-15); BUN 17 mg/dL (7-18); BUN/Creat Ratio 14.4 RATIO (10-20); Calcium,Total 9.1 mg/dL (8.5-10.1); Chloride 105 mmol/L (98-107); Creatinine, Serum 1.18 mg/dL (0.70-1.30); EST Glomerular Filtration Rate 65 mL/min (>60); Est Glom Filt Rate - Afr Amer 78 mL/min (>60); Glucose 98 mg/dL (74-106); Potassium 4.4 mmol/L (3.5-5.1); Sodium Level 138 mmol/L (136-145)
[2022-07-06 14:22] LABS: International Normalized Ratio 2.7
== END 2022-07-09 23:59 ==
LOC: BIMLAB 08:30
PROVIDERS: Family Provider Internal Medicine; PCP Internal Medicine; Referring Provider Internal Medicine; Visit Provider Internal Medicine
DX: Z79.01 Long term (current) use of 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s (principal)
CPT/HCPCS: 36415; 80048; 85610

== ENCOUNTER → 2022-07-20 | Outpatient (CLI) | payer MEDICARE, OTHER, SELFPAY ==
[2022-07-20 13:38] LABS: Absolute Lymphocyte Count 2.13 X10^3/uL (0.83-4.51); Absolute Neutrophil Count 3.2 X10^3/uL (2.0-7.7); Basophil# 0.05 X10^3/uL; Basophil% 0.8 % (0-1); Eosinophil# 0.13 X10^3/uL; Eosinophils% 2.1 % (0-5); Hematocrit 44.8 % (40-54); Hemoglobin 14.7 g/dL (13.0-16.5); Lymphocyte # 2.13 X10^3/ul (0.83-4.51); Lymphocyte % 34.2 % (19-41); Mean Corp Hgb Conc 32.8 g/dL (32-36); Mean Corpuscular Hgb 33.5 pg (27.0-32.0); Mean Corpuscular Volume 102.1 fL (80-94); Monocyte# 0.69 X10^3/uL; Monocyte% 11.1 % (0-10); NRBC Flagged by Analyzer 0 % (0-5); Neutrophil % 51.5 % (47-70); Platelet Count 167 K/mm3 (150-450); RBC Distribution Width CV 13.9 % (11.6-14.6); RBC Distribution Width SD 53.2 fl (35.1-43.9); Red Blood Count 4.39 M/mm3 (4.6-6.2); White Blood Count 6.2 K/mm3 (4.4-11.0)
[2022-07-20 14:23] LABS: Thyroid Stim Hormone (TSH) 3.13 uIU/mL (0.358-3.74)
== END | disposition home or self-care (01) ==
PROVIDERS: PCP Internal Medicine; Visit Provider Physician Assistant Medical
DX: G47.10 Hypersomnia, unspecified (principal); E78.5 Hyperlipidemia, unspecified
CPT/HCPCS: 36415; 84443; 85025

== ENCOUNTER → 2022-08-15 | Outpatient (CLI) | payer MEDICARE, OTHER, SELFPAY ==
--- NOTE | 2022-08-15 17:10 | STRESSREP ---
Stress Test Report Pharmacologic myocardial perfusion stress test. 71-year-old man with a history of chest pain Resting EKG demonstrates sinus bradycardia with a rate of 59 bpm. Resting blood pressure is 136/60 mmHg. 0.4 mg of regadenoson was infused per usual protocol followed by rapid intravenous saline flush injection. Continuous EKG monitoring was performed. The maximum heart rate was 98 bpm which was 65% of max impacted heart rate the maximum workload was 1 metabolic equivalent. At rest there were no ST or T wave changes noted to suggest ischemia and at peak infusion nonspecific ST changes were noted with did not meet the criteria for ischemia. Occasional premature ventricular complexes noted. No clinical angina is noted. The final blood pressure was 138/60 mmHg. Myocardial perfusion protocol. 14.1 mCi of technetium 99m sestamibi was injected at rest. 0.4 mg of regadenoson was infused per usual protocol. At peak infusion 43.9 mCi of technetium 99m sestamibi was injected stress images were obtained stress and rest images were reconstructed and compared in the short axis vertical long and horizontal long axis. Gated images were also obtained. Perfusion SPECT analysis: Review of the stress images demonstrate normal uptake of tracer noted in all areas of the myocardium. The resting images similar demonstrated normal uptake of tracer noted in all areas of the myocardium. No areas of reversibility are noted to suggest ischemia and no previous infarct is noted. Gated SPECT analysis: The gated ejection fraction is 62%. Conclusion: Normal pharmacologic myocardial perfusion stress test. Preserved ejection fraction.
== END | disposition home or self-care (01) ==
LOC: CVS 06:44
PROVIDERS: PCP Internal Medicine; Referring Provider Physician Assistant Medical; Visit Provider Physician Assistant Medical
DX: R07.9 Chest pain, unspecified (principal)
CPT/HCPCS: 78452; 93017; A9500; A4216; J2785

== ENCOUNTER 2022-09-28 11:10 | Outpatient (RCR) | payer MEDICARE, SELFPAY ==
[2022-07-10 00:11] VITALS: BMI 30.4
[2022-09-28 12:43] LABS: International Normalized Ratio 2.4; Prothrombin Time (Protime)PT. 25.7 SECONDS (11.7-14.9)
== END 2022-10-09 23:59 ==
LOC: BIMLAB 11:10
PROVIDERS: Family Provider Internal Medicine; PCP Internal Medicine; Referring Provider Internal Medicine; Visit Provider Internal Medicine
DX: Z79.01 Long term (current) use of 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s (principal)
CPT/HCPCS: 36415; 85610

== ENCOUNTER 2022-10-26 09:18 | Outpatient (RCR) | payer MEDICARE, SELFPAY ==
[2022-10-10 00:10] VITALS: BMI 30.4
[2022-10-26 10:20] LABS: International Normalized Ratio 2.1; Prothrombin Time (Protime)PT. 23.4 SECONDS (11.7-14.9)
[2022-10-26 10:26] LABS: ALB/GLOB Ratio 0.9 RATIO (0.9-2.4); AST(SGOT) 26 U/L (15-37); Alanine Aminotransfer ALT/SGPT 23 U/L (16-61); Albumin, Serum 3.6 g/dL (3.2-5.0); Alkaline Phosphatase 49 U/L (45-117); Anion Gap 5 (5-15); BUN 19 mg/dL (7-18); BUN/Creat Ratio 17.6 RATIO (10-20); Calcium,Total 9.1 mg/dL (8.5-10.1); Chloride 105 mmol/L (98-107); Cholesterol 134 mg/dL (200); Creatinine, Serum 1.08 mg/dL (0.70-1.30); EST Glomerular Filtration Rate 72 mL/min (>60); Est Glom Filt Rate - Afr Amer 87 mL/min (>60); Globulin 3.8 g/dL (2.2-4.2); Glucose 124 mg/dL (74-106); High Density Lipoprotein 39 mg/dL; Potassium 3.9 mmol/L (3.5-5.1); Protein, Total 7.4 g/dL (6.4-8.2); Sodium Level 138 mmol/L (136-145); Triglycerides 111 mg/dL; Very Low Density Lipoprotein 22 mg/dL (5-40)
== END 2022-10-26 18:00 | disposition home or self-care (01) ==
LOC: LAB 09:18
PROVIDERS: Family Provider Internal Medicine; PCP Internal Medicine; Referring Provider Internal Medicine; Visit Provider Internal Medicine
DX: Z79.01 Long term (current) use of 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s (principal); I10 Essential (primary) hypertension; E78.5 Hyperlipidemia, unspecified
CPT/HCPCS: 36415; 80053; 80061; 85610

== ENCOUNTER 2022-11-16 09:44 | Outpatient (RCR) | payer MEDICARE, SELFPAY ==
[2022-11-06 22:36] VITALS: BMI 30.4
[2022-11-16 12:30] LABS: International Normalized Ratio 2.6; Prothrombin Time (Protime)PT. 27.7 SECONDS (11.7-14.9)
== END 2022-12-07 23:59 ==
LOC: BIMLAB 09:44
PROVIDERS: Family Provider Internal Medicine; PCP Internal Medicine; Referring Provider Internal Medicine; Visit Provider Internal Medicine
DX: Z79.01 Long term (current) use of 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s (principal)
CPT/HCPCS: 36415; 85610

== ENCOUNTER 2023-01-07 08:24 | Outpatient (RCR) | payer MEDICARE, SELFPAY ==
[2022-12-08 00:45] VITALS: BMI 30.4
[2023-01-07 12:34] LABS: Absolute Lymphocyte Count 1.55 X10^3/uL (0.83-4.51); Absolute Neutrophil Count 2.9 X10^3/uL (2.0-7.7); Basophil# 0.04 X10^3/uL; Basophil% 0.8 % (0-1); Eosinophil# 0.11 X10^3/uL; Eosinophils% 2.1 % (0-5); Hematocrit 41.1 % (40-54); Hemoglobin 13.7 g/dL (13.0-16.5); Lymphocyte # 1.55 X10^3/ul (0.83-4.51); Lymphocyte % 29.6 % (19-41); Mean Corp Hgb Conc 33.3 g/dL (32-36); Mean Corpuscular Hgb 34.9 pg (27.0-32.0); Mean Corpuscular Volume 104.8 fL (80-94); Mean Platelet Vol. 9.9 fl (6.2-12.0); Monocyte# 0.62 X10^3/uL; Monocyte% 11.9 % (0-10); NRBC Flagged by Analyzer 0 % (0-5); Neutrophil % 55.4 % (47-70); Platelet Count 211 K/mm3 (150-450); RBC Distribution Width CV 14.2 % (11.6-14.6); RBC Distribution Width SD 54.4 fl (35.1-43.9); Red Blood Count 3.92 M/mm3 (4.6-6.2); White Blood Count 5.2 K/mm3 (4.4-11.0)
[2023-01-07 12:42] LABS: International Normalized Ratio 2.9; Prothrombin Time (Protime)PT. 30.7 SECONDS (11.7-14.9)
[2023-01-07 12:53] LABS: ALB/GLOB Ratio 0.9 RATIO (0.9-2.4); AST(SGOT) 23 U/L (15-37); Alanine Aminotransfer ALT/SGPT 31 U/L (16-61); Albumin, Serum 3.6 g/dL (3.2-5.0); Alkaline Phosphatase 56 U/L (45-117); Anion Gap 6 (5-15); BUN 18 mg/dL (7-18); BUN/Creat Ratio 16.7 RATIO (10-20); Calcium,Total 9.2 mg/dL (8.5-10.1); Chloride 105 mmol/L (98-107); Creatinine, Serum 1.08 mg/dL (0.70-1.30); EST Glomerular Filtration Rate 71 mL/min (>60); Est Glom Filt Rate - Afr Amer 86 mL/min (>60); Globulin 3.8 g/dL (2.2-4.2); Glucose 109 mg/dL (74-106); Potassium 4.9 mmol/L (3.5-5.1); Protein, Total 7.4 g/dL (6.4-8.2); Sodium Level 135 mmol/L (136-145)
== END 2023-02-06 23:59 ==
LOC: BIMLAB 08:24
PROVIDERS: Family Provider Internal Medicine; PCP Internal Medicine; Referring Provider Internal Medicine; Visit Provider Internal Medicine
DX: Z79.01 Long term (current) use of 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s (principal); I10 Essential (primary) hypertension
CPT/HCPCS: 36415; 80053; 85025; 85610

== ENCOUNTER 2023-01-16 15:33 | Emergency (ER) | payer MEDICARE, SELFPAY ==
[2023-01-16 15:34] VITALS: BP 123/68; PULSE 64; RESP 18; TEMP 36.4; O2SAT 97; BMI 29.4
--- NOTE | 2023-01-16 15:36 | EDS_ITS ---
HPI History of Present Illness Chief Complaint: Hypotension Detail of Chief Complaint: Dizziness and low blood pressure Informant: patient Narrative Narrative: Patient presents to the emergency department with complaint of feeling intermitt ently lightheaded and dizzy over the last 2 weeks. Patient thinks it may be related to his blood pressure being low. Patient states that he had a spell at work where he felt lightheaded today and so he went to urgent care because his primary care physician cannot see him for a couple of weeks. At urgent care his blood pressure was 110/50 and he was referred to the emergency department. Patient does take blood pressure medicine including hydrochlorothiazide and lisinopril. Patient denies any falls or head injuries. He is on Coumadin for history of of DVTs. Patient denies recent illness. He denies urinary symptoms. He denies chest pain or shortness of breath out of the ordinary. Patient thinks dizzy spells may be brought on more by exertion. [facility] Medical History (Updated 01/16/23 @ 17:[address] 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 Lymphadenopathy Nail avulsion, toe Nonrheumatic aortic (valve) stenosis with insufficiency Obesity Oral thrush Orthostasis LIZA (obstructive sleep apnea) Peripheral neuropathy Post-phlebitic syndrome Recurrent epistaxis Sinusitis Skin lesion Upper respiratory tract infection Urinary frequency Home Medications calcium carbonate 600 mg calcium (1,500 mg) tablet (Calcium) 600 mg PO DAILY 08/24/19 [History Last Taken 12/24/19 08:00] ascorbic acid (vitamin C) 1,000 mg tablet 1 g PO DAILY 03/23/20 [History Last Taken Unknown] leg brace (Ankle Brace) #1 ea 02/09/21 [Rx Last Taken Unknown] leg brace (Knee Support Brace) #1 ea 02/09/21 [Rx Last Taken Unknown] gabapentin 300 mg capsule 300 mg PO BID 3 months #180 caps 04/23/22 [Rx Last Taken Unknown] hydrochlorothiazide 25 mg tablet 25 mg PO QDAY blood pressure #90 tabs 10/03/22 [Rx Last Taken Unknown] lisinopril 20 mg tablet 20 mg PO DAILY #90 tabs 10/03/22 [Rx Last Taken Unknown] cholecalciferol (vitamin D3) 75 mcg (3,000 unit) tablet 75 mcg PO DAILY 10/26/22 [History Last Taken Unknown] warfarin 4 mg tablet 4 mg PO 5XW #90 tabs 10/26/22 [Rx Last Taken Unknown] rosuvastatin 20 mg tablet 20 mg PO DAILY cholesterol #90 tabs 11/05/22 [Rx Last Taken Unknown] benzonatate 100 mg capsule 100 mg PO BID-TID PRN cough #90 caps 01/07/23 [Rx Last Taken Unknown] warfarin 2 mg tablet 6 mg PO 2XW #90 tabs 01/15/23 [Rx Last Taken Unknown] Allergy/AdvReac Type Severity Reaction Status Date / Time Iodinated Contrast Media Allergy Unknown Verified 01/16/23 15:36 [Iodinated Contrast Media - IV Dye] oxycodone AdvReac Other Verified 01/16/23 15:36 Family History Father Lung cancer Uncle Cancer Grandfather Myocardial infarction Grandmother Myocardial infarction Mother Myocardial infarction, Onset Age: 90 Surgical History History of arthroscopy of left knee History of back surgery History of nasal polypectomy History of transurethral resection of prostate (~01/2020) History of umbilical hernia repair History of wisdom tooth extraction Status post hammer toe correction Social History Smoking Status: Current every day smoker tobacco type: cigarettes Tobacco: How many years used: 50 second hand exposure: Yes quit status: considering quitting alcohol intake: current alcohol intake frequency: holidays/special occasions on ly substance use type: does not use caffeine: Yes Type: coffee Number of servings: 2 and tea Number of servings: 1 what type of physical activity do you participate in: none ROS ROS ED Review of Systems ROS Unobtainable: other Constitutional Constitutional ED: Reports lethargy; Denies chills, fever(s), sweats or weight loss Eyes Eyes: Denies blurry vision, change in vision or diplopia ENT ENT ED: Denies rhinorrhea or sore throat Cardiovascular Cardiovascular: Denies chest pain, orthopnea or racing heartbeat Respiratory/Chest Respiratory/Chest: Denies cough, dyspnea, dyspnea on exertion, orthopnea or sputum Gastrointestinal Gastrointestinal: Denies abdominal pain, diarrhea, nausea or vomiting Genitourinary Genitourinary ED: Denies dysuria, hematuria or urinary frequency Musculoskeletal Musculoskeletal: Denies arthralgias, back pain, myalgias or neck pain Integumentary Denies abscess, Abrasions or rash Neurologic Neurologic: Reports weakness and other Details: Dizziness ; Denies headache(s) Psychiatric Psychiatric: Denies anxiety, depression or suicidal thoughts Endocrine Endocrinology: Denies polydipsia, polyphagia or polyuria Hematologic/Lymphatic Hematologic/Lymphatic: Denies easy bleeding, easy bruising or lymphadenopathy Allergic/Immunologic Allergic/Immunologic ED: Denies mouth swelling, tongue swelling or urticaria EXAM Physical Exam Const Vital Signs: 01/16/23 15:34 01/16/23 16:12 01/16/23 16:13 Temperature 97.6 F L Temperature Source Temporal Pulse Rate 64 Pulse Rate [Lying] 55 L Pulse Rate [Sitting (for 1 minute prior to obtaining)] 58 L Pulse Rate [Standing (for 1 minute prior to obtaining)] 66 Respiratory Rate 18 Respiratory Effort Normal Respiratory Pattern Normal Blood Pressure 123/68 H Blood Pressure [Lying] 113/47 L Blood Pressure [Sitting (for 1 minute prior to obtaining)] 121/55 H Blood Pressure [Standing (for 1 minute prior to obtaining)] 143/47 H Blood Pressure Mean 86 Blood Pressure Mean [Lying] 69 Blood Pressure Mean [Sitting (for 1 minute prior to obtaining)] 77 Blood Pressure Mean [Standing (for 1 minute prior to obtaining)] 79 Pulse Ox 97 Oxygen Delivery Method Room Air Positive well nourished and well developed General Appearance ED: well developed and NAD HEENT Reports TM's clear and moist mucous membranes normocephalic and atraumatic; Negative for trauma or tenderness Tympanic Membrane ED: Yes TM's clear Eyes PERRL and EOMs intact bilaterally General Eye ED: Negative for pale conjunctiva or scleral icterus Neck no lymphadenopathy, supple and no JVD General: Negative for tenderness Chest Wall inspection of chest normal and palpation of chest normal Chest: Negative for tenderness Resp normal respiratory effort and clear to auscultation bilaterally Effort and Inspection: Negative for respiratory distress or pain with movement Auscultation: Negative for rhonchi, wheezes or diminished lung sounds Cardio regular rate, regular rhythm, S1 normal heart sound and S2 normal heart sound Peripheral Pulses: pulses 2+ throughout GI normal to inspection, nondistended, normoactive bowel sounds, soft to palpation, non-tender, non-distended and no masses Back/Spine no CVA tenderness and no thoracic nor lumbar tenderness Extremity normal to inspection General Extremety ED: Negative for edema General Extremity: Negative for edema Neuro oriented x3, CN's II-XII intact bilaterally, no sensory deficits noted and gait normal Sensorium / Orientation: awake, alert, oriented to person, oriented to place and oriented to time Motor Exam: strength 5/5 throughout and strength abnormal Psych mental status grossly normal Skin no rashes or lesions noted and no wounds MDM MDM MDM Narrative Medical decision making narrative: Patient presents with generalized weakness and lightheadedness. Patient believes may be related to his blood pressure. Currently on hydrochlorothiazide and lisinopril. Patient states that he was not having the symptoms when he was not taking the blood pressure medicine. In the differential would be hypotension versus infectious etiology versus cardiac etiology versus electrolyte abnormality. Patient also on Coumadin and been having lightheadedness in the differential would be intracranial hemorrhage. We did perform a CT scan of the brain without contrast that was unremarkable. CBC with differential was normal. Chemistries unremarkable. Troponin was normal. INR 2.7. Patient did have orthostatic vital signs performed and these were negative. At this time I feel patient can be discharged to home. He will discuss with his physicians whether to potentially discontinue his blood pressure medicine and follow his blood pressures carefully. Etiology of his dizziness and lightheadedness uncertain. Lab Data Attestation: I reviewed the patient's lab results. Labs: Laboratory Results - last 24 hr 01/16/23 01/16/23 01/16/23 16:05 16:05 16:05 WBC 6.0 RBC 3.94 L Hgb 13.3 Hct 41.4 MCV 105.1 H MCH 33.8 H MCHC 32.1 RDW Std Deviation 55.8 H RDW Coeff of Marcelle 14.2 Plt Count 187 MPV 9.3 Immature Gran % (Auto) 0.200 Neut % (Auto) 56.1 Lymph % (Auto) 29.8 [place] % (Auto) 11.6 H Eos % (Auto) 1.8 Baso % (Auto) 0.5 Absolute Neuts (auto) 3.4 Absolute Lymphs (auto) 1.79 Nucleated RBC % 0 PT 29.2 H INR 2.7 Sodium 138 Potassium 4.2 Chloride 105 Carbon Dioxide 23.0 Anion Gap 10 BUN 21 H Creatinine 1.23 Estim Creat Clear Calc 56.05 Est GFR (MDRD) Af Amer 74 Est GFR (MDRD) Non-Af 62 BUN/Creatinine Ratio 17.1 Glucose 108 H Calcium 9.2 Troponin I High Sens 8 Radiography Diagnostic Testing: Clinical Impression(s) from Imaging Studies Brain CT 01/16/23 15:47 IMPRESSION: Negative head/brain CT without intravenous contrast. Electronically Signed: Reji Augustine MD at 17:00 EDT , Chest X-Ray 01/16/23 16:09 IMPRESSION: There are no acute findings. Electronically Signed: Reji Augustine MD at 16:23 EDT , EKG Initial EKG: Attestation: I personally reviewed and interpreted this EKG as follows: Comments: Sinus bradycardia with a rate of 58 bpm with no acute ST segment changes Discharge Plan Triage Chief Complaint: Hypotension ED Provider: Ida Cruz Dx/Rx/DC Orders Clinical Impression: Dizziness, Weakness Instructions: ED Dizziness, Uncertain Cause, ED Weakness (Uncertain Cause) Prescriptions: No Action calcium carbonate [Calcium 600] 600 mg calcium (1,500 mg) tablet 600 mg PO DAILY ascorbic acid (vitamin C) 1,000 mg tablet 1 g PO DAILY (DME) Ankle Brace Misc See Rx Instructions .ROUTE .MEDSUPPLY Qty: 1 0RF Rx Instructions: As directed (DME) Knee Support Brace Misc See Rx Instructions .ROUTE .MEDSUPPLY Qty: 1 0RF Rx Instructions: As directed hydrochlorothiazide 25 mg tablet 25 mg PO QDAY Qty: 90 3RF lisinopril 20 mg tablet 20 mg PO DAILY Qty: 90 3RF cholecalciferol (vitamin D3) 75 mcg (3,000 unit) tablet 75 mcg PO DAILY benzonatate 100 mg capsule 100 mg PO BID-TID PRN (Reason: cough) Qty: 90 3RF gabapentin 300 mg capsule 300 mg PO BID 90 Days Qty: 180 1RF warfarin 4 mg tablet 4 mg PO 5XW Qty: 90 1RF Protocol: Dose Management Protocol Text: Patient Instructed to take: warfarin 4 mg (1 Tab) on [place], [place], , , [place], [place] warfarin 4 mg (1.5 Tabs) on [place] Rx Instructions: Coumadin 4mg daily except Mon and Fri rosuvastatin 20 mg tablet 20 mg PO DAILY Qty: 90 3RF warfarin 2 mg tablet 6 mg PO 2XW Qty: 90 3RF Rx Instructions: Mondays and Fridays only Primary Care Provider: Wade Padilla Referrals: Wade Padilla MD [Primary Care Provider] - 3-5 Days Activity Restrictions/Additional Instructions: Discussed with your physicians potentially decreasing or discontinuing some of your blood pressure medicine and then following closely these blood pressures. Disposition Disposition: Home, Self Care
--- NOTE | 2023-01-16 15:47 | CT_ITS ---
EXAM: CT HEAD WITHOUT INTRAVENOUS CONTRAST CLINICAL INDICATION: dizziness, anticoagulation TECHNIQUE: Multiple axial images were obtained of the head without intravenous contrast. This CT exam was performed using one or more of the following dose reduction techniques: automated exposure control, adjustment of the mA and/or kV according to patient size, and/or use of iterative reconstruction technique. RADIATION DOSE: CTDIvol = 44.99 mGy, DLP = 812.98 mGy-cm COMPARISON: No relevant prior studies available. FINDINGS: BRAIN AND EXTRA-AXIAL SPACES: Unremarkable. No intra- or extra-axial hemorrhage. No evidence of acute infarct. No intracranial mass or mass effect. There is preservation of the tovar/white matter interface. Posterior fossa structures are unremarkable. Ventricles are appropriate for age. No hydrocephalus. Basal cisterns are patent. BONES/JOINTS: Unremarkable. No discrete lytic or blastic abnormalities. SINUSES: Unremarkable as visualized. Clear. MASTOID AIR CELLS: Unremarkable. Clear. ORBITS: Visualized globes, extraocular muscles, optic nerves and retrobulbar fat appear unremarkable. CT/Brain/Head without Contrast IMPRESSION: Negative head/brain CT without intravenous contrast. Electronically Signed: Reji Augustine MD at 17:00 EDT ,
--- NOTE | 2023-01-16 15:47 | EKG12_ITS ---
Test Reason : DIZZINESS Blood Pressure : / mmHG Vent. Rate : 058 BPM Atrial Rate : 058 BPM P-R Int : 146 ms QRS Dur : 088 ms QT Int : 422 ms P-R-T Axes : 080 073 075 degrees QTc Int : 414 ms Sinus bradycardia Otherwise normal ECG Confirmed by ISABEL GUNDERSON, BON ([id number]), web editor ISIDRA CARLOS ([id number]) on 01/18/2023 8:02:07 AM Referred By: Confirmed By:BON HALL MD
--- NOTE | 2023-01-16 16:09 | RAD_ITS ---
STUDY: XR Chest 1 View 01/16/2023 4:10 PM REASON FOR EXAM: Male, 72 years old. CHEST PAIN weakness COMPARISON: 10/09/2020 TECHNIQUE: XR Chest 1 View FINDINGS: There is no demonstrated pleural abnormality. Normal heart size. Normal mediastinum. Normal cher. Prominent appearing increased interstitial lung markings. Normal visualized pulmonary arteries. There is atherosclerotic calcification of the aortic arch with tortuosity. There are diffuse degenerative changes of the visualized thoracic spine. There is degenerative osteoarthritis of the bilateral shoulders. There is no demonstrated abnormality of the visualized soft tissue structures of the upper abdomen. RAD/Chest 1 View (Portable) IMPRESSION: There are no acute findings. Electronically Signed: Reji Augustine MD at 16:23 EDT ,
[2023-01-16 16:10] LABS: Absolute Lymphocyte Count 1.79 X10^3/uL (0.83-4.51); Absolute Neutrophil Count 3.4 X10^3/uL (2.0-7.7); Basophil# 0.03 X10^3/uL; Basophil% 0.5 % (0-1); Eosinophil# 0.11 X10^3/uL; Eosinophils% 1.8 % (0-5); Hematocrit 41.4 % (40-54); Hemoglobin 13.3 g/dL (13.0-16.5); Lymphocyte # 1.79 X10^3/ul (0.83-4.51); Lymphocyte % 29.8 % (19-41); Mean Corp Hgb Conc 32.1 g/dL (32-36); Mean Corpuscular Hgb 33.8 pg (27.0-32.0); Mean Corpuscular Volume 105.1 fL (80-94); Mean Platelet Vol. 9.3 fl (6.2-12.0); Monocyte% 11.6 % (0-10); NRBC Flagged by Analyzer 0 % (0-5); Neutrophil # 3.37 X10^3/uL (2.7-7.7); Neutrophil % 56.1 % (47-70); Platelet Count 187 K/mm3 (150-450); RBC Distribution Width CV 14.2 % (11.6-14.6); RBC Distribution Width SD 55.8 fl (35.1-43.9); Red Blood Count 3.94 M/mm3 (4.6-6.2)
[2023-01-16 16:12] VITALS: BP 113/47; BP 121/55; BP 143/47; PULSE 55; PULSE 58; PULSE 66
[2023-01-16] MEDS: 0.9% Normal Saline 1,000 ML 150 ML IV (16:13)
[2023-01-16 16:30] LABS: Anion Gap 10 (5-15); BUN 21 mg/dL (7-18); BUN/Creat Ratio 17.1 RATIO (10-20); Calcium,Total 9.2 mg/dL (8.5-10.1); Chloride 105 mmol/L (98-107); Creatinine, Serum 1.23 mg/dL (0.70-1.30); EST Glomerular Filtration Rate 62 mL/min (>60); Est Glom Filt Rate - Afr Amer 74 mL/min (>60); Estimated Creatinine Clearance 56.05 ml/min; Glucose 108 mg/dL (74-106); Potassium 4.2 mmol/L (3.5-5.1); Sodium Level 138 mmol/L (136-145); Troponin-I HS 8 pg/mL (3.0-78.0)
[2023-01-16 16:46] LABS: International Normalized Ratio 2.7; Prothrombin Time (Protime)PT. 29.2 SECONDS (11.7-14.9)
[2023-01-16 17:10] VITALS: BP 109/48; PULSE 51; RESP 16; O2SAT 94
== END 2023-01-16 17:15 | disposition home or self-care (01) ==
PROVIDERS: Emergency Provider Emergency Medicine; PCP Internal Medicine; Visit Provider Emergency Medicine
DX: R42 Dizziness and giddiness (principal); R53.1 Weakness; I95.9 Hypotension, unspecified; I10 Essential (primary) hypertension; F17.210 Nicotine dependence, cigarettes, uncomplicated; Z79.01 Long term (current) use of 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s
CPT/HCPCS: 70450; 71045; 80048; 84484; 85025; 85610; 93005; 96360; 99285; J7030

== ENCOUNTER 2023-02-13 12:50 | Outpatient (CLI) | payer MEDICARE, SELFPAY ==
--- NOTE | 2023-02-13 12:52 | US_ITS ---
ACR Level 3 findings have been noted. An addendum which confirms receipt of the report will follow. History: BILATERAL AXILLARY LYMPHADENOPATHY FINDINGS: Multiple lymph nodes in the bilateral axilla. RIGHT AXILLA: 1.1 cm x 0.9 cm x 0.8 cm and 0.6 cm maximum diameter lymph nodes. Fatty cher. LEFT AXILLA: 1.6 cm x 1.0 cm x 0.8 cm lymph node and adjacent 1.2 cm long axis lymph node. Replaced fat in the hilum of the largest left axillary lymph node suggesting an infiltrative or inflammatory process. IMPRESSION: Minimally prominent lymph nodes. The largest mildly prominent lymph node in the left axilla has low-attenuation hilum instead of normal echogenic fatty hilum. This may be due to an infiltrative process such as neoplasm or inflammation, uncertain chronicity. Electronically Signed: Erma Gordon MD at 8:23 EDT Reading Location ID and State: [facility] / [place] Tel , Service support , History: BILATERAL AXILLARY LYMPHADENOPATHY FINDINGS: Multiple lymph nodes in the bilateral axilla. RIGHT AXILLA: 1.1 cm x 0.9 cm x 0.8 cm and 0.6 cm maximum diameter lymph nodes. Fatty cher. LEFT AXILLA: 1.6 cm x 1.0 cm x 0.8 cm lymph node and adjacent 1.2 cm long axis lymph node. Replaced fat in the hilum of the largest left axillary lymph node suggesting an infiltrative or inflammatory process. US/Ext Non Vasc Limited/Soft Tiss IMPRESSION: Minimally prominent lymph nodes. The largest mildly prominent lymph node in the left axilla has low-attenuation hilum instead of normal echogenic fatty hilum. This may be due to an infiltrative process such as neoplasm or inflammation, uncertain chronicity. Electronically Signed: Erma Gordon MD at 8:24 EDT ,
--- NOTE | 2023-02-13 12:52 | ART_ITS ---
Reason For Study: Claudication Procedure A bilateral lower extremity continuous wave Doppler with analog waveform analysis and ankle brachial indexes. Left Segmental Pressures Left brachial= 128mmHg. Left posterior tibial artery = 114mmHg. Left dorsalis pedis artery = 118mmHg. Left digit = 89 mmHg. The left posterior tibial artery waveforms are biphasic. The left dorsalis pedis waveforms are biphasic. Right Segmental Pressures Right brachial= 129mmHg. Right posterior tibial artery = 110mmHg. Right dorsalis pedis artery = 103mmHg. Right digit = 77 mmHg. The right posterior tibial artery waveforms are biphasic. The right dorsalis pedis waveforms are monophasic. Indices The right ankle brachial index by the posterior tibial artery is 0.85. The right ankle brachial index by the dorsalis pedis is 0.80. The right digital-brachial index is 0.60. The left ankle brachial index by the posterior tibial artery is 0.88. The left ankle brachial index by the dorsalis pedis is 0.91. The left digital-brachial index is 0.69. VL/Ankle Brachial Index Interpretation Summary Right NGOC 0.85, moderate arterial insufficiency. Doppler/PVR waveforms of the r ight ankle moderately diminished. Left NGOC 0.91, mild arterial insufficiency. Doppler/PVR waveforms of the left a nkle mildly diminished. Ordering Physician: Chris Scanlon Referring Physician: Wade Padilla Performed By: Laith Blankenship, RVT
== END 2023-02-13 23:59 | disposition home or self-care (01) ==
PROVIDERS: PCP Internal Medicine; Referring Provider Nurse Practitioner Family; Visit Provider Nurse Practitioner Family
DX: R59.1 Generalized enlarged lymph nodes (principal); I73.9 Peripheral vascular disease, unspecified
CPT/HCPCS: 76882; 93922

== ENCOUNTER → 2023-02-20 | Outpatient (CLI) | payer MEDICARE, SELFPAY ==
--- NOTE | 2023-02-20 16:52 | CT_ITS ---
STUDY: CT CHEST WITH CONTRAST REASON FOR EXAM: Male, 72 years old. abn US, axillary lymphadenopathy RADIATION DOSAGE (If Supplied By Facility): CTDIvol = ( 15.52 ) mGy, DLP = ( 676.09 ) mGycm TECHNIQUE: Transaxial imaging was performed following intravenous administration of IV 100mL Isovue-300. Multiplanar coronal and sagittal images were reformatted. Individualized dose optimization techniques were used for this CT. COMPARISON: Comparison is made with prior study dated May 03, 2021. FINDINGS: CHEST Small benign appearing bilateral axillary lymph nodes. Stable mild degree of bilateral apical scarring. There is no demonstrated pleural abnormality. There are calcifications of the coronary arteries. Normal mediastinum. Normal hilar regions. Normal unenhanced pulmonary arteries. Normal aorta arch and descending thoracic aorta. There are multi-level degenerative changes of the thoracic spine. There is no demonstrated abnormality of the visualized upper abdomen. CT/Chest WITH Contrast IMPRESSION: Small benign-appearing bilateral axillary lymph nodes. No acute abnormality seen. Electronically Signed: Grzegorz Delong MD at 13:41 EDT ,
[2023-02-20 17:16] LABS: EGFR FINGERSTICK > 60.0000 mL/min (>60)
== END | disposition home or self-care (01) ==
LOC: CT 16:51
PROVIDERS: PCP Internal Medicine; Referring Provider Nurse Practitioner Family; Visit Provider Nurse Practitioner Family
DX: R59.1 Generalized enlarged lymph nodes (principal)
CPT/HCPCS: 71260; Q9967

== ENCOUNTER → 2023-02-27 | Outpatient (CLI) | payer MEDICARE, SELFPAY ==
--- NOTE | 2023-02-27 08:08 | VDLE_ITS ---
Reason For Study: Bi lateral leg pain RIGHT LEFT CFV is compressible, spontaneous, phasic, CFV is compressible, spontaneous, phasic, competent and demonstrates normal competent, and demonstrates normal augmentation. augmentation. FV is compressible, spontaneous, phasic, FV is compressible, spontaneous, phasic, competent and demonstrates normal competent and demonstrates normal augmentation. augmentation. POP V is compressible, spontaneous, phasic, POP V is compressible, phasic, and competent and demonstrates normal INCOMPETENT for greater than 1.0 second. augmentation. T/P Trunk is compressible. T/P Trunk is compressible. PTV is compressible. PTV is compressible. LT PerV is compressible. RT PerV is compressible. SFJ is competent and measures 0.67 x 0.67 cm. SFJ is competent and measures 0.46 x 0.46 cm. GSV proximal thigh measures 0.42 x 0.42 cm. GSV proximal thigh measures 0.32 x 0.35 cm. GSV at knee measures 0.28 x 0.29 cm. GSV at knee measures 0.22 x 0.24 cm. GSV is competent throughout. GSV is competent throughout. SSV proximal calf is competent and measures SSV proximal calf is competent and measures 0.13 x 0.16 cm. 0.20 x 0.20 cm. Perforating vessel at mid calf is INCOMPETENT Perforating vessel at mid calf is INCOMPETENT for greater than 0.5 seconds and measures for greater than 0.5 seconds and measures 0.22 cm in long axis. 0.20 cm in long axis. Multiple varicosities noted at prox and mid Procedure from the posterior side of the calf. All Exam performed in department. appear to be compressible. The exam was diagnostic. VL/Venous Duplex US - Souleymane Extrem Interpretation Summary Deep veins of the bilateral lower extremities are patent and compressible segme ntally. There is no evidence of bilateral lower extremity deep vein thrombosis. The bilateral great saphenous veins appear patent and compressible segmentally. Positive for reflux in right calf silk spotter vein. Positive for reflux in the left popliteal vein and calf silk spotter vein Ordering Physician: Cruzito Tinajero Referring Physician: Wade Padilla Performed By: Laith Blankenship RVT
== END | disposition home or self-care (01) ==
LOC: CVS 08:07
PROVIDERS: PCP Internal Medicine; Referring Provider Surgery Trauma Surgery; Visit Provider Surgery Trauma Surgery
DX: R07.9 Chest pain, unspecified (principal); I87.2 Venous insufficiency (chronic) (peripheral)
CPT/HCPCS: 93970

== ENCOUNTER 2023-03-01 09:08 | Outpatient (RCR) | payer MEDICARE, SELFPAY ==
[2023-02-07 00:08] VITALS: BMI 30.4
[2023-03-01 12:22] LABS: International Normalized Ratio 1.9
[2023-03-01 12:33] LABS: Absolute Lymphocyte Count 1.44 X10^3/uL (0.83-4.51); Absolute Neutrophil Count 3.1 X10^3/uL (2.0-7.7); Basophil# 0.04 X10^3/uL; Basophil% 0.7 % (0-1); Eosinophil# 0.12 X10^3/uL; Eosinophils% 2.2 % (0-5); Hematocrit 43.3 % (40-54); Lymphocyte # 1.44 X10^3/ul (0.83-4.51); Lymphocyte % 26.4 % (19-41); Mean Corp Hgb Conc 32.3 g/dL (32-36); Mean Corpuscular Hgb 34.7 pg (27.0-32.0); Mean Corpuscular Volume 107.2 fL (80-94); Mean Platelet Vol. 9.9 fl (6.2-12.0); Monocyte# 0.78 X10^3/uL; Monocyte% 14.3 % (0-10); NRBC Flagged by Analyzer 0 % (0-5); Neutrophil # 3.06 X10^3/uL (2.7-7.7); Platelet Count 191 K/mm3 (150-450); RBC Distribution Width CV 14.4 % (11.6-14.6); RBC Distribution Width SD 57.7 fl (35.1-43.9); Red Blood Count 4.04 M/mm3 (4.6-6.2); White Blood Count 5.5 K/mm3 (4.4-11.0)
== END 2023-03-08 23:59 ==
LOC: BIMLAB 09:08
PROVIDERS: Nurse Practitioner Family; Family Provider Internal Medicine; PCP Internal Medicine; Referring Provider Internal Medicine; Visit Provider Internal Medicine
DX: Z79.01 Long term (current) use of 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s (principal); I10 Essential (primary) hypertension
CPT/HCPCS: 36415; 85025; 85610

== ENCOUNTER 2023-03-15 09:19 | Outpatient (RCR) | payer MEDICARE, SELFPAY ==
[2023-03-09 00:25] VITALS: BMI 30.4
[2023-03-15 12:36] LABS: International Normalized Ratio 2.2; Prothrombin Time (Protime)PT. 24.4 SECONDS (11.7-14.9)
== END 2023-04-08 23:59 ==
LOC: BIMLAB 09:19
PROVIDERS: Family Provider Internal Medicine; PCP Internal Medicine; Referring Provider Internal Medicine; Visit Provider Internal Medicine
DX: Z79.01 Long term (current) use of 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s (principal)
CPT/HCPCS: 36415; 85610

== ENCOUNTER → 2023-05-10 | Outpatient (CLI) | payer MEDICARE, SELFPAY ==
--- NOTE | 2023-05-10 09:43 | ECHOD_ITS ---
Reason For Study: AORTIC STENOSIS, LIZA Procedure This was a 2D Doppler, Color Flow transthoracic echocardiogram. Exam performed in department. Left Ventricle Normal LV size. Left ventricular systolic function is normal. The estimated ejection fraction is 65 %. No regional wall motion abnormalities noted. Right Ventricle Normal RV size. Normal systolic function. Atria Normal left atrium. Normal right atrium. Mitral Valve There is mild to moderate mitral annular calcification. Tricuspid Valve Normal tricuspid valve. Aortic Valve Trisinus/trileaflet aortic valve. Moderate focal aortic valve calcification. Peak aortic valve gradient 58 mmHg. Mean aortic valve gradient 32 mmHg. Moderate aortic stenosis. Mild (1+) aortic valve insufficiency. Pulmonic Valve Normal pulmonic valve. Great Vessels Normal aortic root. The pulmonary artery is normal size. Normal inferior vena cava. Pericardium/Pleural No pericardial effusion. MMode/2D Measurements & Calculations LVIDd: 5.7 cm IVSd: 0.90 cm LVOT diam: 2.0 cm LVIDs: 3.5 cm LVPWd: 1.0 cm LVOT area: 3.1 cm2 RVDd: 3.5 cm FS: 38.8 % Ao root diam: 2.9 cm LAV(MOD-bp): 53.9 ml LVAd ap4: 38.5 cm2 LAV(MOD-bp) Indexed: 25.6 ml/m2 LVLd ap4: 9.1 cm LAV(MOD-sp2): 53.3 ml EDV(MOD-sp4): 136.6 ml LAV(MOD-sp4): 52.1 ml EDV(sp4-el): 137.5 ml LVAs ap4: 20.6 cm2 LVLs ap4: 7.6 cm ESV(MOD-sp4): 52.9 ml ESV(sp4-el): 47.4 ml EF(MOD-sp4): 61.3 % EF(sp4-el): 65.5 % LVAd ap2: 38.5 cm2 SV(MOD-sp4): 83.7 ml SV(MOD-sp2): 87.1 ml LVLd ap2: 9.2 cm EDV(MOD-sp2): 138.1 ml EDV(sp2-el): 137.1 ml LVAs ap2: 20.9 cm2 LVLs ap2: 7.6 cm ESV(MOD-sp2): 51.1 ml ESV(sp2-el): 48.7 ml EF(MOD-sp2): 63.0 % SV(sp4-el): 90.1 ml LA dimension(2D): 3.7 cm LA A4 area: 18.3 cm2 RA A4 area: 17.8 cm2 Time Measurements MV dec time: 0.24 sec Doppler Measurements & Calculations MV E max al: 126.7 cm/sec Lat Peak E' Al: 6.1 cm/sec Med Peak E' Al: 9.2 cm/sec MV A max al: 102.2 cm/sec E/E' lat: 20.7 E/E' med: 13.8 MV E/A: 1.2 MV V2 max: 132.0 cm/sec Ao V2 max: 380.2 cm/sec AI max al: 316.7 cm/sec MV max P.0 mmHg Ao max P.8 mmHg AI max P.2 mmHg MV V2 mean: 68.3 cm/sec Ao V2 mean: 275.2 cm/sec MV mean P.4 mmHg Ao mean P.8 mmHg AI dec slope: 148.8 cm/sec2 MV V2 VTI: 51.0 cm Ao V2 VTI: 96.9 cm AI P1/2t: 623.4 msec AV (velocity ratio): 0.33 MVA(VTI): 2.0 cm2 ANTONINA(I,D): 1.0 cm2 ANTONINA(V,D): 0.96 cm2 LV V1 max: 117.5 cm/sec MR max al: 540.5 cm/sec SV(LVOT): 100.6 ml LV V1 max P.5 mmHg MR max P.8 mmHg LV V1 mean P.3 mmHg LV V1 mean: 87.4 cm/sec LV V1 VTI: 32.4 cm ECHO/Echo Complete Interpretation Summary Normal LV size. Left ventricular systolic function is normal. The estimated ejection fraction is 65 %. Moderate focal aortic valve calcification. Mean aortic valve gradient 32 mmHg. Moderate aortic stenosis. Mild (1+) aortic valve insufficiency. Compared to the previous the aortic valve is mildly worse Ordering Physician: Hetal Garcia Referring Physician: Wade Padilla Performed By: Deana Downey, SABRINA, RVT
== END | disposition home or self-care (01) ==
LOC: CVS 09:41
PROVIDERS: PCP Internal Medicine; Referring Provider Physician Assistant Medical; Visit Provider Physician Assistant Medical
DX: I35.2 Nonrheumatic aortic (valve) stenosis with insufficiency (principal); G47.33 Obstructive sleep apnea (adult) (pediatric)
CPT/HCPCS: 93306

== ENCOUNTER 2023-06-14 10:31 | Outpatient (RCR) | payer MEDICARE, SELFPAY ==
[2023-04-09 00:12] VITALS: BMI 30.4
[2023-06-14 12:33] LABS: International Normalized Ratio 2.9; Prothrombin Time (Protime)PT. 30.3 SECONDS (11.7-14.9)
== END 2023-07-09 23:59 ==
LOC: BIMLAB 10:31
PROVIDERS: Family Provider Internal Medicine; PCP Internal Medicine; Referring Provider Internal Medicine; Visit Provider Internal Medicine
DX: Z79.01 Long term (current) use of 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s (principal)
CPT/HCPCS: 36415; 85610

== ENCOUNTER 2023-07-19 09:43 | Outpatient (RCR) | payer MEDICARE, SELFPAY ==
[2023-07-10 00:06] VITALS: BMI 30.4
[2023-07-19 12:51] LABS: International Normalized Ratio 2.1; Prothrombin Time (Protime)PT. 24.1 SECONDS (11.7-14.9)
== END 2023-08-08 23:59 ==
LOC: BIMLAB 09:43
PROVIDERS: Family Provider Internal Medicine; PCP Internal Medicine; Referring Provider Internal Medicine; Visit Provider Internal Medicine
DX: Z79.01 Long term (current) use of 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s (principal)
CPT/HCPCS: 36415; 85610

== ENCOUNTER 2023-09-18 11:40 | Outpatient (RCR) | payer MEDICARE, SELFPAY ==
[2023-08-09 00:08] VITALS: BMI 30.4
--- NOTE | 2023-09-18 12:29 | RAD_ITS ---
INDICATION: Cough, Shortness of breath EXAMINATION/TECHNIQUE: X-RAY - XR Chest 2 Views COMPARISON: Prior study dated: 01/16/2023. FINDINGS: LINES/DEVICES: None. LUNGS: No consolidation, edema or effusion. No pneumothorax. MEDIASTINUM AND CARDIOVASCULAR STRUCTURES: Cardiac silhouette not enlarged. Central airways and mediastinal contour are unremarkable. BONES AND SOFT TISSUES: Unremarkable. RAD/Chest PA and Lateral IMPRESSION: No radiographic evidence of acute cardiopulmonary disease. Electronically Signed: Silver Fam MD at 13:03 EST ,
[2023-09-18 12:38] LABS: Absolute Lymphocyte Count 1.57 X10^3/uL (0.83-4.51); Absolute Neutrophil Count 2.7 X10^3/uL (2.0-7.7); Basophil# 0.04 X10^3/uL; Basophil% 0.8 % (0-1); Eosinophil# 0.16 X10^3/uL; Eosinophils% 3.1 % (0-5); Hematocrit 42.8 % (40-54); Hemoglobin 13.7 g/dL (13.0-16.5); Lymphocyte # 1.57 X10^3/ul (0.83-4.51); Lymphocyte % 30.7 % (19-41); Mean Corpuscular Hgb 33.2 pg (27.0-32.0); Mean Corpuscular Volume 103.6 fL (80-94); Mean Platelet Vol. 9.6 fl (6.2-12.0); Monocyte% 11.7 % (0-10); NRBC Flagged by Analyzer 0 % (0-5); Neutrophil # 2.73 X10^3/uL (2.7-7.7); Neutrophil % 53.3 % (47-70); Platelet Count 174 K/mm3 (150-450); RBC Distribution Width CV 14.5 % (11.6-14.6); RBC Distribution Width SD 55.6 fl (35.1-43.9); Red Blood Count 4.13 M/mm3 (4.6-6.2); White Blood Count 5.1 K/mm3 (4.4-11.0)
[2023-09-18 12:49] LABS: International Normalized Ratio 2.7; Prothrombin Time (Protime)PT. 29.1 SECONDS (11.7-14.9)
[2023-09-18 12:58] LABS: ALB/GLOB Ratio 0.9 RATIO (0.9-2.4); AST(SGOT) 20 U/L (15-37); Alanine Aminotransfer ALT/SGPT 24 U/L (16-61); Albumin, Serum 3.5 g/dL (3.2-5.0); Alkaline Phosphatase 53 U/L (45-117); Anion Gap 5 (5-15); BUN 14 mg/dL (7-18); BUN/Creat Ratio 13.6 RATIO (10-20); Calcium,Total 8.7 mg/dL (8.5-10.1); Chloride 107 mmol/L (98-107); Creatinine, Serum 1.03 mg/dL (0.70-1.30); EST Glomerular Filtration Rate 75 mL/min (>60); Est Glom Filt Rate - Afr Amer 91 mL/min (>60); Globulin 3.7 g/dL (2.2-4.2); Glucose 108 mg/dL (74-106); Potassium 4.1 mmol/L (3.5-5.1); Protein, Total 7.2 g/dL (6.4-8.2); Sodium Level 139 mmol/L (136-145)
[2023-09-18 13:07] LABS: BNP,B-Type NATRIURETIC PEPTIDE 17.4 pg/mL (0-100)
== END 2023-10-09 23:59 ==
LOC: BIMLAB 11:40
PROVIDERS: Family Provider Internal Medicine; PCP Internal Medicine; Referring Provider Internal Medicine; Visit Provider Internal Medicine
DX: Z79.01 Long term (current) use of 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s (principal); J44.9 Chronic obstructive pulmonary disease, unspecified; R06.02 Shortness of breath
CPT/HCPCS: 36415; 71046; 80053; 83880; 85025; 85610

== ENCOUNTER → 2023-09-19 | Outpatient (CLI) | payer MEDICARE, SELFPAY ==
--- OUTSIDE RECORDS SUMMARY | 2023-09-19 07:36 | XMS RPT_ITS | CCD ---
Author Name Unknown Address [address] [place] [address] Organization [facility] Team Providers Care Reflesher Name Role Phone Unknown, Pcp Unavailable Unavailable Carl Cruz Unavailable Unavailable Allergies Allergy Classification Reported Allergen(s) Allergy Type Date of Onset Reaction(s) Facility (1 source) Iodine Drug Allergy Unknown [facility] Medications Completed/Discontinued Medications Medication Drug Class(es) Dates Sig (Normalized) Sig (Original) NEGATED: Highlighted row has not occurred!No Current Medications (1 source) No Current Medic ations Problems Problem Classification Problem Date Documented Da te Episodic/Chronic Other injuries and condition s due to external causes (2 sources) Tear of skin 03-17-2022 Episodic Results Test Name Value Interpretation Reference Range Facil ity Vital Signs Date Time Vital Sign Value Performing Clinician Facility 03-17-2022 14:56-0400 Body height 177.8 cm Pcp Unknown [facility] 03-17-2022 14:56-0400 Body temperature 97.88 [degF] Pcp Unknown [facility] 03-17-2022 14:56-0400 Diastolic blood pressure 59 mm[Hg] Pcp Unknown [facility] 03-17-2022 14:56-0400 Heart rate 74 /min Pcp Unknown [facility] 03-17-2022 14:56-0400 SaO2% (BldA) [Mass fraction] 94 % Pcp Unknown [facility] 03-17-2022 14:56-0400 Systolic blood pressure 111 mm[Hg] Pcp Unknown [facility] Encounters Encounter Date Encounter Type Care Provider Facility Start: 03-17-2022 End: 03-17-2022 Emergency department patient visit Carl Cruz [facility] Payers Date Payer Category Payer Unknown Social History Date Type Detail Facility [facility] Tobacco smoking consumption unknown [facility] Summary Purpose Family History No Family History Records Found Advance Directives No Advanced Directives Records Found Additional Source Comments <item> Privacy Markings (unrecogniz ed section and content) Section Author: Gerda Sullivan PROHIBITION ON REDISCLOSURE OF CONFIDENTIAL INFORMATION This notice accompanies a disclosure of information concerning a client made to you with the consent of such client. (unrecognized sect ion and content) No Status Records Found INFORMATION SOURCE (unrecogn ized section and content) FOR RECORDS PERTAINING TO PATIENTS WHO ARE OR HAVE BEEN ENROLLED IN A CHEMICAL DEPENDENCY/SUBSTANCEABUSE PROGRAM, SOME INFORMATION MAY BE OMITTED. This clinical summary was aggregated from multiple sources. Caution should be exercised in using it in the provision of clinical care. This summary normalizes information from multiple sources, and as a consequence, information in this document may materially change the coding, format and clinical context of patient data. In addition, data may be omitted in some cases. CLINICAL DECISIONS SHOULD BE BASED ON THE PRIMARY CLINICAL RECORDS. [facility]. provides no warranty or guarantee of the accuracy or completeness of information in this document.
== END | disposition home or self-care (01) ==
LOC: LABSPEC 07:13
PROVIDERS: PCP Internal Medicine; Referring Provider Internal Medicine; Visit Provider Internal Medicine
DX: J44.9 Chronic obstructive pulmonary disease, unspecified (principal)
CPT/HCPCS: 87070; 87205

== ENCOUNTER 2023-09-25 08:54 | Inpatient (IN) | payer MEDICARE, SELFPAY ==
[2023-09-25] VITALS (8 sets, daily range): BP systolic 127–160; BP diastolic 58–71; PULSE 55–76; RESP 16–22; TEMP 35.9–36.6; O2SAT 94–98; BMI 32.2; BMI 31.8
--- NOTE | 2023-09-25 09:28 | EKG12_ITS ---
Test Reason : SOB/COUGH Blood Pressure : / mmHG Vent. Rate : 051 BPM Atrial Rate : 058 BPM P-R Int : 138 ms QRS Dur : 084 ms QT Int : 456 ms P-R-T Axes : 065 068 084 degrees QTc Int : 420 ms Sinus bradycardia Otherwise normal ECG Confirmed by ISABEL GUNDERSON, BON ([id number]), tape editor ISIDRA CARLOS ([id number]) on 09/27/2023 8:02:03 AM Referred By: Confirmed By:BON HALL MD
--- NOTE | 2023-09-25 09:32 | CT_ITS ---
STUDY: CTA CHEST REASON FOR EXAM: Male, 72 years old. rule out PE, possible mucus plugs RADIATION DOSAGE (If Supplied By Facility): CTDIvol = ( 9.06 ) mGy, DLP = ( 511.94 ) mGycm TECHNIQUE: The examination was performed with the intravenous administration of IV 100mL Isovue-370. Post-processing of the angiographic images was performed, with multiplanar reformation and 3D reconstruction. Individualized dose optimization techniques were used for this CT. COMPARISON: Chest x-ray dated September 18, 2023 FINDINGS: Normal enhancement of the main pulmonary artery and right and left pulmonary arteries. Normal enhancement of the bilateral peripheral pulmonary arteries. There is no demonstrated pulmonary embolism. There is atherosclerotic calcification of the aortic arch with tortuosity. There is no demonstrated aortic dissection. Normal heart and pericardium. There are calcifications of the coronary arteries. Normal mediastinum. Normal hilar regions. Normal visualized trachea and bronchi. The lungs are well expanded. Scattered interstitial fibrotic scarring is present in both lungs. There is no demonstrated pneumonic consolidation or infiltrates. No pulmonary edema or pleural effusion is seen. Normal pleura. Normal chest wall structures. There are degenerative changes of thoracic spine. Normal visualized upper abdomen. CT/CTA Chest W/WO Contrast IMPRESSION: 1. No demonstrated pulmonary embolism or arterial dissection. 2. Scattered interstitial fibrotic scarring is present in both lungs. There is no demonstrated pneumonic consolidation or infiltrates. No pulmonary edema or pleural effusion is seen Electronically Signed: Danyel Hargrove MD at 12:33 EST ,
--- NOTE | 2023-09-25 09:32 | CT_ITS ---
STUDY: CT FACIAL BONES WITHOUT CONTRAST REASON FOR EXAM: Male, 72 years old. Sinusitis. Sinus infection RADIATION DOSAGE (If Supplied By Facility): CTDIvol = ( 29.38 ) mGy, DLP = ( 576.84 ) mGycm TECHNIQUE: Axial CT images of the facial bones were obtained with multiplanar reconstruction. The protocol utilizes one or more of the following dose reduction techniques: automated exposure control, adjustment of the mA and/or KV according to the patient size, and/or use of iterative reconstruction techniques. Individualized dose optimization techniques were used for this CT. COMPARISON: Head CT dated January 16, 2023 FINDINGS: Soft Tissues: Normal: No focal or diffuse soft tissue swelling. Facial Bones: Normal: No fracture or destructive process. Mandible/TMJ: Normal. Orbital Contents: Normal globes, extraocular muscles, optic nerves, intraconal and extraconal spaces. Normal lamina papyracea. Visualized Paranasal Sinuses: Normal. There is diffuse polypoid formation/lobularity of the bilateral nasal turbinates and mild hypertrophy of the turbinates. Visualized Mastoid Air Cells: Normal. CT/Sinus/Facial Bone IMPRESSION: 1. Normal CT of the facial bones without contrast. 2. There is diffuse polypoid formation/lobularity of the bilateral nasal turbinates and mild hypertrophy of the turbinates. Electronically Signed: Danyel Hargrove MD at 12:16 EST ,
--- NOTE | 2023-09-25 09:38 | EX.ED.DYSGE1 ---
HPI History of Present Illness Chief Complaint: Cough Narrative Narrative: Patient is a 72-year-old male who is presenting to the ER today with chief complaint of cough, congestion, mild sinus headache in coughing which is worse at nighttime for the past 2 or 3 weeks. Patient PCP has placed patient on 2 different antibiotics. Patient was initially on amoxicillin, PCP then placed patient on Augmentin after a course of amoxicillin. Patient is been taking Robitussin [id number] and Tylenol. Patient also Tessalon Perles. Patient has a history of COPD. Patient states the cough is worse at nighttime. Patient is using no antihistamines, Flonase, or anything up to help dry the sinuses. Patient states initially the cough was whitish and very stringy, now with small yellowish clumps. Patient has mild sinus frontal headache. No chest pain, tightness. Patient has no significant shortness of breath. Patient uses albuterol inhaler intermittently. Patient does have other medication for COPD but is expensive, so he uses those intermittently. Patient does not wear oxygen at daytime, he does use CPAP at nighttime. Patient has not been using CPAP the last several nights secondary to coughing, congestion, and not able to be comfortable. Patient came into the ER for a second opinion. No abdominal pain, nausea or vomiting. Loose stool intermittently. No other acute complaints. Patient traveling, no other acute contacts. [facility] Medical History Acute sinusitis, unspecified Arterial insufficiency BPH (benign prostatic hyperplasia) Bronchitis Carotid artery stenosis Chronic sinusitis Colon cancer screening Cough COVID-19 (07/2021) Dysuria Essential hypertension 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 reflux disease) Health care maintenance Hemorrhoids Hernia Hypersomnia Hypotensive episode Intermittent claudication assisted current use of 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 Lymphadenopathy Nail avulsion, toe Nonrheumatic aortic (valve) stenosis with insufficiency Obesity Oral thrush Orthostasis LIZA (obstructive sleep apnea) Peripheral neuropathy Post-phlebitic syndrome Recurrent epistaxis Shortness of breath Sinusitis Skin lesion Upper respiratory tract infection Urinary frequency Home Medications calcium carbonate 600 mg calcium (1,500 mg) tablet (Calcium) 600 mg PO DAILY SUPPLEMENT 08/24/19 [History Last Taken 12/24/19 08:00] ascorbic acid (vitamin C) 1,000 mg tablet 1 g PO DAILY SUPPLEMENT 03/23/20 [History Last Taken Unknown] leg brace (Ankle Brace) #1 ea 02/09/21 [Rx Last Taken Unknown] leg brace (Knee Support Brace) #1 ea 02/09/21 [Rx Last Taken Unknown] rosuvastatin 20 mg tablet 20 mg PO DAILY CHOLESTEROL #90 tabs 11/05/22 [Rx Last Taken Unknown] gabapentin 300 mg capsule 300 mg PO BID NERVE PAIN 3 months #180 caps 05/10/23 [Rx Last Taken Unknown] warfarin 4 mg tablet 4 mg PO 5XW previous blood clots #90 tabs 09/16/23 [Rx Last Taken 09/24/23] benzonatate 100 mg capsule 100 mg PO BID-TID PRN cough #90 caps 09/19/23 [Rx Last Taken Unknown] cholecalciferol (vitamin D3) 25 mcg (1,000 unit) tablet (Vitamin D3) 25 mcg PO DAILY SUPPLEMENT 09/25/23 [History Last Taken Unknown] hydrochlorothiazide 25 mg tablet 25 mg PO DAILY BLOOD PRESSURE 09/25/23 [History Last Taken Unknown] warfarin 2 mg tablet 6 mg PO .mondays and fridays previous blood clots 09/25/23 [History Last Taken Unknown] zinc sulfate 50 mg zinc (220 mg) capsule 50 mg PO DAILY PRN SUPPLEMENT 09/25/23 [History Last Taken Unknown] Allergy/AdvReac Type Severity Reaction Status Date / Time Iodinated Contrast Media AdvReac Severe Other Verified 09/26/23 11:05 [Iodinated Contrast Media - IV Dye] oxycodone AdvReac Other Verified 09/18/23 11:13 Family History Father Lung cancer Uncle Cancer Grandfather Myocardial infarction Grandmother Myocardial infarction Mother Myocardial infarction, Onset Age: 90 Surgical History History of arthroscopy of left knee History of back surgery History of nasal polypectomy History of transurethral resection of prostate (~01/2020) History of umbilical hernia repair History of wisdom tooth extraction Status post hammer toe correction Social History Smoking Status: Current every day smoker tobacco type: cigarettes Tobacco: How many years used: 50 second hand exposure: Yes quit status: considering quitting alcohol intake: current alcohol intake frequency: holidays/special occasions only substance use type: does not use caffeine: Yes Type: coffee Number of servings: 2 and tea Number of servings: 1 what type of physical activity do you participate in: none ROS ROS ED ROS Narrative REVIEW OF SYSTEMS: Unless otherwise stated in this report the patient's positive and negative responses for review of systems for constitutional, eyes, ENT, cardiovascular, respiratory, gastrointestinal, neurological, , musculoskeletal, and integument systems and related systems to the presenting problem are either stated in the history of present illness or were not pertinent or were negative for the symptoms and/or complaints related to the presenting medical problem. EXAM Physical Exam Narrative Exam Narrative: Vital signs reviewed and patient is not hypoxic. General: The patient appears well and in no apparent distress. Patient is resting comfortably on cart. Not toxic, lethargic, or listless. Patient is having intermittent dry coughing throughout HPI and physical exam. Skin: Warm, dry, no pallor noted. There is no rash noted. Head: Normocephalic, atraumatic Eye: Normal conjunctiva, no drainage, EOMI. PERRL. Ears, Nose, Mouth, and Throat: oral mucosa is moist. Nares patent. Mouth without vesicles. Cardiovascular: Regular Rate and Rhythm, no murmurs, gallops, or rubs Respiratory: Patient is in no distress, no accessory muscle use, lungs are with diffuse wheezing, bilateral congestion, equal breath sounds bilateral. Back: non-tender, no CVA tenderness bilaterally to percussion. NO CTLS midline or paraspinal tenderness to palpation. GI: Soft, obese, no distention, no tenderness to palpation, no masses appreciated. No rebound, guarding, or rigidity noted. Musculoskeletal: The patient has full range of motion of all extremities and joints with no difficulty. Patient has no motor, no sensory deficits. Neurological: A&O x4, normal speech, no focal neurological deficits. Psychiatric: Cooperative Const Vital Signs: 09/25/23 08:54 09/25/23 09:42 Temperature 96.7 F L Temperature Source Temporal Pulse Rate 68 76 Respiratory Rate 16 22 H Respiratory Pattern Tachypnea Blood Pressure 127/58 H Blood Pressure Mean 81 Pulse Ox 98 Oxygen Delivery Method Room Air MDM MDM MDM Narrative Medical decision making narrative: Patient had a CT of the sinuses and CT of the chest that showed no significant findings. Patient's initial troponin was 250, repeat troponin will be done. Patient has been given IV fluids. Patient will be admitted to the hospital for failed outpatient therapy for bronchitis/COPD exacerbation along with elevated troponin. Patient did have a stress test and echocardiogram approximately 5 years ago along with a cardiac cath test approximately 5-7 years ago. Patient has no cardiac history. No cardiac stents. Patient does have COPD, he wears no oxygen at home. Patient was seen and evaluated by Dr. Pete in the ER as well and will be admitted. Dr. Pete spoke to cardiology about this patient as well. Patient has been given IV site measure, magnesium, and patient will be started on prophylactic antibiotics IV by Dr. Pete. Radiography Diagnostic Testing: Clinical Impression(s) from Imaging Studies Chest CTA 09/25/23 09:32 IMPRESSION: 1. No demonstrated pulmonary embolism or arterial dissection. 2. Scattered interstitial fibrotic scarring is present in both lungs. There is no demonstrated pneumonic consolidation or infiltrates. No pulmonary edema or pleural effusion is seen Electronically Signed: Danyel Hargrove MD at 12:33 EST Reading Location ID and State: [place] / [place] , Service support , Facial/Sinus 09/25/23 09:32 IMPRESSION: 1. Normal CT of the facial bones without contrast. 2. There is diffuse polypoid formation/lobularity of the bilateral nasal turbinates and mild hypertrophy of the turbinates. Electronically Signed: Danyel Hargrove MD at 12:16 EST , EKG Initial EKG: Attestation: I personally reviewed and interpreted this EKG as follows: (Sinus bradycardia 51 beats a minute. Normal axis deviation. No acute ST elevation, no acute ectopy. QTc of 420) Discharge Plan Dx/Rx/DC Orders Clinical Impression: Elevated troponin, COPD exacerbation Disposition Disposition: Acute Care Hospital [facility] Discharge Date/Time: 09/25/23 13:25 Capacity Legal [employer] Reflex Medical hold order details:: IF a medical hold is selected below, a suggested order for a MEDICAL HOLD will reflex upon signing the document. Next of kin: [place] law dictates a PRIORITY LIST for identifying legal decision-maker/legal next of kin in the following order (LNOK): 1st: The patient?s legal guardian, if any 2nd: The patient's spouse (if status is questionable, consult Risk Management) 3rd: The patient?s adult child(chadnler) (majority, if multiple children) 4th: The patient?s parents 5th: The patient?s adult siblings (majority, if multiple children siblings)
[2023-09-25] MEDS: Albuterol 2.5 MG/3 ML VIAL.NEB. INHALATION (09:43)
[2023-09-25] MEDS: Ipratropium/Albuterol Sulfate 3 ML AMPUL.NEB INHALATION ×2 (09:43→19:12)
[2023-09-25] MEDS: 0.9% Normal Saline (1000mL) 1,000 ML 999 ML IV (10:07)
[2023-09-25] MEDS: MethylPREDNISolone 125 MG/2 ML Vial IV (10:07)
[2023-09-25 10:28] LABS: Absolute Lymphocyte Count 2.28 X10^3/uL (0.83-4.51); Absolute Neutrophil Count 6.7 X10^3/uL (2.0-7.7); Basophil# 0.03 X10^3/uL; Basophil% 0.3 % (0-1); Eosinophil# 0.08 X10^3/uL; Eosinophils% 0.8 % (0-5); Hematocrit 38.8 % (40-54); Hemoglobin 12.6 g/dL (13.0-16.5); Lymphocyte # 2.28 X10^3/ul (0.83-4.51); Lymphocyte % 21.9 % (19-41); Mean Corp Hgb Conc 32.5 g/dL (32-36); Mean Corpuscular Hgb 33.4 pg (27.0-32.0); Mean Corpuscular Volume 102.9 fL (80-94); Mean Platelet Vol. 9.4 fl (6.2-12.0); Monocyte# 1.26 X10^3/uL; Monocyte% 12.1 % (0-10); NRBC Flagged by Analyzer 0 % (0-5); Neutrophil % 64.4 % (47-70); Platelet Count 168 K/mm3 (150-450); RBC Distribution Width CV 14.7 % (11.6-14.6); Red Blood Count 3.77 M/mm3 (4.6-6.2); White Blood Count 10.4 K/mm3 (4.4-11.0)
[2023-09-25 10:45] LABS: BNP,B-Type NATRIURETIC PEPTIDE 147.1 pg/mL (0-100)
[2023-09-25 11:11] LABS: Anion Gap 4 (5-15); BUN 22 mg/dL (7-18); BUN/Creat Ratio 20.6 RATIO (10-20); Calcium,Total 8.8 mg/dL (8.5-10.1); Chloride 103 mmol/L (98-107); Creatinine, Serum 1.07 mg/dL (0.70-1.30); EST Glomerular Filtration Rate 72 mL/min (>60); Est Glom Filt Rate - Afr Amer 87 mL/min (>60); Estimated Creatinine Clearance 74.63 ml/min; Glucose 108 mg/dL (74-106); Potassium 4.2 mmol/L (3.5-5.1); Sodium Level 136 mmol/L (136-145); Troponin-I HS 212 pg/mL (3.0-78.0)
[2023-09-25 12:06] LABS: International Normalized Ratio 3.2; Prothrombin Time (Protime)PT. 33.1 SECONDS (11.7-14.9)
--- NOTE | 2023-09-25 12:34 | PCM.CONS.C ---
Documented by User: Hetal ARAMBULA, TYESHA 09/25/23 14:21 Assessment & Plan Assessment/Plan (1) Elevated troponin: (2) Nonrheumatic aortic (valve) stenosis with insufficiency: (3) Essential hypertension: (4) Hyperlipidemia: QUALIFIERS: Hyperlipidemia type: unspecified Qualified Code(s): E78.5 - Hyperlipidemia, unspecified HPI Consult Data Date of Consult: 09/25/23 HPI Narrative HPI Narrative: NAKUL BASSETT, is a 72 M who presented with [facility] ER with concerns of a cough that had been going on for 2 weeks and has not gotten better after 2 courses of antibiotics. He troponin was noted to be elevated (212) with his labs. We were asked to consult on because of this. EKG demonstrated Sinus bradycardia 51 bpm. Normal axis deviation. No acute ST elevation, no acute ectopy. QTc of 420) He has a history of moderate aortic stenosis, COPD, hypertension, carotid artery stenosis, hyperlipidemia, obstructive sleep apnea, peripheral arterial disease, history of DVT. He was last seen in our office in 04/2023. Echocardiogram in 05/2023 demonstrated Moderate with an EF of 65%. In 08/2022 he had a normal pharmacologic myocardial perfusion stress test. Heart cath in 2019 demonstrated no significant obstructive CAD. [facility] Medical History Acute sinusitis, unspecified Arterial insufficiency BPH (benign prostatic hyperplasia) Bronchitis Carotid artery stenosis Chronic sinusitis Colon cancer screening Cough COVID-19 (07/2021) Dysuria Essential hypertension 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 reflux disease) Health care maintenance Hemorrhoids Hernia Hypersomnia Hypotensive episode Intermittent claudication retirement current use of 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 Lymphadenopathy Nail avulsion, toe Nonrheumatic aortic (valve) stenosis with insufficiency Obesity Oral thrush Orthostasis LIZA (obstructive sleep apnea) Peripheral neuropathy Post-phlebitic syndrome Recurrent epistaxis Shortness of breath Sinusitis Skin lesion Upper respiratory tract infection Urinary frequency Home Medications calcium carbonate 600 mg calcium (1,500 mg) tablet (Calcium) 600 mg PO DAILY SUPPLEMENT 08/24/19 [History Last Taken 12/24/19 08:00] ascorbic acid (vitamin C) 1,000 mg tablet 1 g PO DAILY SUPPLEMENT 03/23/20 [History Last Taken Unknown] leg brace (Ankle Brace) #1 ea 02/09/21 [Rx Last Taken Unknown] leg brace (Knee Support Brace) #1 ea 02/09/21 [Rx Last Taken Unknown] rosuvastatin 20 mg tablet 20 mg PO DAILY CHOLESTEROL #90 tabs 11/05/22 [Rx Last Taken Unknown] gabapentin 300 mg capsule 300 mg PO BID NERVE PAIN 3 months #180 caps 05/10/23 [Rx Last Taken Unknown] warfarin 4 mg tablet 4 mg PO 5XW previous blood clots #90 tabs 09/16/23 [Rx Last Taken 09/24/23] benzonatate 100 mg capsule 100 mg PO BID-TID PRN cough #90 caps 09/19/23 [Rx Last Taken Unknown] cholecalciferol (vitamin D3) 25 mcg (1,000 unit) tablet (Vitamin D3) 25 mcg PO DAILY SUPPLEMENT 09/25/23 [History Last Taken Unknown] hydrochlorothiazide 25 mg tablet 25 mg PO DAILY BLOOD PRESSURE 09/25/23 [History Last Taken Unknown] warfarin 2 mg tablet 6 mg PO .mondays and fridays previous blood clots 09/25/23 [History Last Taken Unknown] zinc sulfate 50 mg zinc (220 mg) capsule 50 mg PO DAILY PRN SUPPLEMENT 09/25/23 [History Last Taken Unknown] Allergy/AdvReac Type Severity Reaction Status Date / Time Iodinated Contrast Media AdvReac Severe Other Verified 09/26/23 11:05 [Iodinated Contrast Media - IV Dye] oxycodone AdvReac Other Verified 09/18/23 11:13 Family History Father Lung cancer Uncle Cancer Grandfather Myocardial infarction Grandmother Myocardial infarction Mother Myocardial infarction, Onset Age: 90 Surgical History History of arthroscopy of left knee History of back surgery History of nasal polypectomy History of transurethral resection of prostate (~01/2020) History of umbilical hernia repair History of wisdom tooth extraction Status post hammer toe correction Social History Smoking Status: Current every day smoker tobacco type: cigarettes Tobacco: How many years used: 50 second hand exposure: Yes quit status: considering quitting alcohol intake: current alcohol intake frequency: holidays/special occasions only substance use type: does not use caffeine: Yes Type: coffee Number of servings: 2 and tea Number of servings: 1 what type of physical activity do you participate in: none Physical Exam Const alert, oriented x3, no apparent distress and healthy appearing HEENT normocephalic, head/scalp atraumatic, hearing grossly normal bilaterally, external ears normal, external nose normal and moist oral mucous membranes Eyes PERRL, EOMs intact bilaterally, conjunctivae normal and no scleral icterus Neck no lymphadenopathy, supple and no JVD Resp normal respiratory effort and clear to auscultation bilaterally Cardio regular rate, regular rhythm, S1 normal heart sound, S2 normal heart sound, no rub, no gallops, no clicks, no JVD and peripheral pulses 2+ throughout Heart Sounds: murmur systolic II/ harsh GI normal to inspection, nondistended, normoactive bowel sounds, soft to palpation, non-tender and non-distended Extremity normal to inspection, normal capillary refill, no clubbing, cyanosis or edema and no pedal edema Neuro oriented x3, CN's II-XII intact bilaterally, moves all extremities and no focal motor deficits Psych cooperative and affect normal Risk Stratification Risk Stratification Applicable: Yes Age >/= 65: Yes >/= 3 CAD Risk Factors (HTN, HLD, DM, family hx of CAD, or current smoker): Yes Aspirin Use in the Past 7 Days: No Severe Angina (>/= episodes in 24 hours): No EKG ST Changes >/= 0.5mm: No Positive Cardiac Marker: Yes CEE Risk Stratification Score: 3 CEE % Risk: 13% Risk 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 Next of kin: [place] law dictates a PRIORITY LIST for identifying legal decision-maker/legal next of kin in the following order (LNOK): 1st: The patient?s legal guardian, if any 2nd: The patient's spouse (if status is questionable, consult Risk Management) 3rd: The patient?s adult child(chandler) (majority, if multiple children) 4th: The patient?s parents 5th: The patient?s adult siblings (majority, if multiple children siblings) Charges/Coding Visit Charges Office Visits / Consults: [id number] IP Consult L3 Objective Data Vital Signs: Vital Signs Temp Pulse Resp BP Pulse Ox O2 Del Method 96.7 F L 56 L 20 H 127/58 H 94 Room Air 09/25/23 08:54 09/25/23 10:04 09/25/23 10:04 09/25/23 08:54 09/25/23 10:04 09/25/23 10:04 Oxygen Delivery Method Room Air Weight: 224 lb 9.6 oz Body Mass Index (BMI) 32.2 Intake & Output: Intake and Output for Last 24 Hours 09/23/23 09/24/23 09/25/23 23:59 23:59 23:59 Intake Total 1000 / 1000 Balance 1000 / 1000 Lab / Micro Data 09/25/23 10:09 09/25/23 10:09 Labs: Laboratory Results - last 24 hr 09/25/23 10:00: PT 33.1 H, INR 3.2 09/25/23 10:09: WBC 10.4, RBC 3.77 L, Hgb 12.6 L, Hct 38.8 L, MCV 102.9 H, MCH 33.4 H, MCHC 32.5, RDW Std Deviation 56.0 H, RDW Coeff of Marcelle 14.7 H, Plt Count 168, MPV 9.4, Immature Gran % (Auto) 0.500, Neut % (Auto) 64.4, Lymph % (Auto) 21.9, [place] % (Auto) 12.1 H, Eos % (Auto) 0.8, Baso % (Auto) 0.3, Absolute Neuts (auto) 6.7, Absolute Lymphs (auto) 2.28, Nucleated RBC % 0, Sodium 136, Potassium 4.2, Chloride 103, Carbon Dioxide 29.0, Anion Gap 4 L, BUN 22 H, Creatinine 1.07, Estim Creat Clear Calc 74.63, Est GFR (MDRD) Af Amer 87, Est GFR (MDRD) Non-Af 72, BUN/Creatinine Ratio 20.6 H, Glucose 108 H, Calcium 8.8, Troponin I High Sens 212 H*, B-Natriuretic Peptide 147.1 H Micro: Microbiology 09/25/23 10:00 Mucosa - Nasopharyngeal SARS-CoV-2, Influenza & RSV (PCR) - Final Cardiology Labs/Tests 09/25/23 10:00: PT 33.1 H, INR 3.2 09/25/23 10:09: WBC 10.4, RBC 3.77 L, Hgb 12.6 L, Hct 38.8 L, MCV 102.9 H, MCH 33.4 H, MCHC 32.5, Plt Count 168, MPV 9.4, Immature Gran % (Auto) 0.500, Neut % (Auto) 64.4, Lymph % (Auto) 21.9, [place] % (Auto) 12.1 H, Eos % (Auto) 0.8, Baso % (Auto) 0.3, Absolute Neuts (auto) 6.7, Nucleated RBC % 0, Sodium 136, Potassium 4.2, Chloride 103, Carbon Dioxide 29.0, Anion Gap 4 L, BUN 22 H, Creatinine 1.07, Est GFR (MDRD) Af Amer 87, Est GFR (MDRD) Non-Af 72, BUN/Creatinine Ratio 20.6 H, Glucose 108 H, Calcium 8.8, B-Natriuretic Peptide 147.1 H Radiography Diagnostic Testing: Radiology Impression Facial/Sinus 09/25/23 09:32 IMPRESSION: 1. Normal CT of the facial bones without contrast. 2. There is diffuse polypoid formation/lobularity of the bilateral nasal turbinates and mild hypertrophy of the turbinates. Electronically Signed: Danyel Hargrove MD at 12:16 EST Reading Location ID and State: [address] [place] [address] , Service support , Documented by User: Dr. Ghassan Johnson MD 09/26/23 12:01 Assessment & Plan Assessment/Plan (1) Elevated troponin: (2) Nonrheumatic aortic (valve) stenosis with insufficiency: (3) Essential hypertension: (4) Hyperlipidemia: QUALIFIERS: Hyperlipidemia type: unspecified Qualified Code(s): E78.5 - Hyperlipidemia, unspecified HPI Consult Data Date of Consult: 09/26/23 HPI Narrative HPI Narrative: NAKUL BASSETT, is a 72 M who presented with [facility] ER with concerns of a cough that had been going on for 2 weeks and has not gotten better after 2 courses of antibiotics. He troponin was noted to be elevated (212) with his labs. We were asked to consult on because of this. EKG demonstrated Sinus bradycardia 51 bpm. Normal axis deviation. No acute ST elevation, no acute ectopy. QTc of 420) He has a history of moderate aortic stenosis, COPD, hypertension, carotid artery stenosis, hyperlipidemia, obstructive sleep apnea, peripheral arterial disease, history of DVT. He was last seen in our office in 04/2023. Echocardiogram in 05/2023 demonstrated Moderate with an EF of 65%. In 08/2022 he had a normal pharmacologic myocardial perfusion stress test. Heart cath in 2019 demonstrated no significant obstructive CAD. I saw this patient at bedside along with his family members and the nursing staff. 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 Kaplan and has been followed for moderate aortic stenosis. Will repeat an echocardiogram which showed moderate calcific aortic valve stenosis LV function is within normal He has a history of contrast allergy The clinical presentation is typical of type II FL with demand myocardial ischemia Warfarin had been discontinued and patient was scheduled for cardiac catheterization to assess for coronary artery disease. Risk-benefit explained in detail to the patient as well as to the family. 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 Lymphadenopathy Nail avulsion, toe Nonrheumatic aortic (valve) stenosis with insufficiency Obesity Oral thrush Orthostasis LIZA (obstructive sleep apnea) Peripheral neuropathy Post-phlebitic syndrome Recurrent epistaxis Shortness of breath Sinusitis Skin lesion Upper respiratory tract infection Urinary frequency Home Medications calcium carbonate 600 mg calcium (1,500 mg) tablet (Calcium) 600 mg PO DAILY SUPPLEMENT 08/24/19 [History Last Taken 12/24/19 08:00] ascorbic acid (vitamin C) 1,000 mg tablet 1 g PO DAILY SUPPLEMENT 03/23/20 [History Last Taken Unknown] leg brace (Ankle Brace) #1 ea 02/09/21 [Rx Last Taken Unknown] leg brace (Knee Support Brace) #1 ea 02/09/21 [Rx Last Taken Unknown] rosuvastatin 20 mg tablet 20 mg PO DAILY CHOLESTEROL #90 tabs 11/05/22 [Rx Last Taken Unknown] gabapentin 300 mg capsule 300 mg PO BID NERVE PAIN 3 months #180 caps 05/10/23 [Rx Last Taken Unknown] warfarin 4 mg tablet 4 mg PO 5XW previous blood clots #90 tabs 09/16/23 [Rx Last Taken 09/24/23] benzonatate 100 mg capsule 100 mg PO BID-TID PRN cough #90 caps 09/19/23 [Rx Last Taken Unknown] cholecalciferol (vitamin D3) 25 mcg (1,000 unit) tablet (Vitamin D3) 25 mcg PO DAILY SUPPLEMENT 09/25/23 [History Last Taken Unknown] hydrochlorothiazide 25 mg tablet 25 mg PO DAILY BLOOD PRESSURE 09/25/23 [History Last Taken Unknown] warfarin 2 mg tablet 6 mg PO .mondays and fridays previous blood clots 09/25/23 [History Last Taken Unknown] zinc sulfate 50 mg zinc (220 mg) capsule 50 mg PO DAILY PRN SUPPLEMENT 09/25/23 [History Last Taken Unknown] Allergy/AdvReac Type Severity Reaction Status Date / Time Iodinated Contrast Media AdvReac Severe Other Verified 09/26/23 11:05 [Iodinated Contrast Media - IV Dye] oxycodone AdvReac Other Verified 09/18/23 11:13 Family History Father Lung cancer Uncle Cancer Grandfather Myocardial infarction Grandmother Myocardial infarction Mother Myocardial infarction, Onset Age: 90 Surgical History History of arthroscopy of left knee History of back surgery History of nasal polypectomy History of transurethral resection of prostate (~01/2020) History of umbilical hernia repair History of wisdom tooth extraction Status post hammer toe correction Social History Smoking Status: Current every day smoker tobacco type: cigarettes Tobacco: How many years used: 50 second hand exposure: Yes quit status: considering quitting alcohol intake: current alcohol intake frequency: holidays/special occasions only substance use type: does not use caffeine: Yes Type: coffee Number of servings: 2 and tea Number of servings: 1 what type of physical activity do you participate in: none Risk Stratification Age >/= 65: Yes CEE Risk Stratification Score: 3 CEE % Risk: 13% Risk Lab / Micro Data 09/25/23 10:09 09/25/23 10:09
[2023-09-25 13:02] LABS: Troponin-I HS 175 pg/mL (3.0-78.0)
[2023-09-25 13:23] LABS: International Normalized Ratio 2.8; Prothrombin Time (Protime)PT. 29.6 SECONDS (11.7-14.9)
--- OUTSIDE RECORDS SUMMARY | 2023-09-25 14:05 | XMS RPT_ITS | CCD ---
Author Name Unknown Address [address] [place] [address] Organization [facility] Care Team Providers Care Community Relations Advisor Name Role Phone Unknown, Pcp Unavailable Unavailable Carl Cruz Unavailable Unavailable Allergies Allergy Classification Reported Allergen(s) Allergy Type Date of Onset Reaction(s) Facility (1 source) Iodine Drug Allergy Unknown [facility] Medications Completed/Discontinued Medications Medication Drug Class(es) Dates [...] 14:56-0400 Body height 177.8 cm Pcp Unknown [facility] 03-17-2022 14:56-0400 Body temperature 97.88 [degF] Pcp Unknown [facility] 03-17-2022 14:56-0400 Diastolic blood pressure 59 mm[Hg] Pcp Unknown [facility] 03-17-2022 14:56-0400 Heart rate 74 /min Pcp Unknown [facility] 03-17-2022 14:56-0400 SaO2% (BldA) [Mass fraction] 94 % Pcp Unknown [facility] 03-17-2022 14:56-0400 Systolic blood pressure 111 mm[Hg] Pcp Unknown [facility] Encounters Encounter Date Encounter Type Care Provider Facility Start: 03-17-2022 End: 03-17-2022 Emergency department patient visit Carl Cruz [facility] Payers Date Payer Category Payer Unknown Social History Date Type Detail Facility [facility] Tobacco smoking consumption unknown [facility] Summary Purpose Family History No Family History [...] BE BASED ON THE PRIMARY CLINICAL RECORDS. [facility]. provides no warranty or guarantee of the accuracy or completeness of information in this document.
[2023-09-25] MEDS: 0.9% Saline Lock 10 ML Syringe IV ×2 (15:33→21:50)
[2023-09-25] MEDS: Azithromycin 250 MG Tablet 500 MG PO (15:33)
[2023-09-25] MEDS: hydroCHLOROthiazide 25 MG Tablet PO (15:34)
[2023-09-25] MEDS: Phytonadione (Vit K) 5 MG in 0.9% Normal Saline (50mL Bag) 50 ML 150 MG IV (15:34)
[2023-09-25 17:02] LABS: Troponin-I HS 109 pg/mL (3.0-78.0)
[2023-09-25] MEDS: Gabapentin 300 MG Capsule PO (17:04)
--- NOTE | 2023-09-25 17:17 | ECHOCS_ITS ---
Version 2 Reason For Study: , Murmur Procedure This was a 2D Doppler, Color Flow transthoracic echocardiogram. Exam performed portable in patient room. Left Ventricle Normal LV size. Mild concentric left ventricular hypertrophy. The estimated ejection fraction is 65 %. No regional wall motion abnormalities noted. Right Ventricle Normal RV size. Normal systolic function. Atria Normal left atrium. Normal right atrium. Mitral Valve Moderate mitral annular calcification. Mild diffuse mitral valve thickening. The mitral valve chordae are thickened and/or calcified. There is no mitral valve stenosis. Mild (1+) mitral valve insufficiency. Tricuspid Valve Normal tricuspid valve. Trivial tricuspid valve insufficiency. Aortic Valve Moderate to severe aortic stenosis. Peak aortic valve gradient 66 mmHg. Mean aortic valve gradient 40 mmHg. Trivial aortic valve insufficiency. Pulmonic Valve Normal pulmonic valve. Great Vessels Normal aortic root. Pericardium/Pleural No pericardial effusion. MMode/2D Measurements & Calculations LVIDd: 4.6 cm IVSd: 1.3 cm LVOT diam: 2.0 cm LVIDs: 2.7 cm LVPWd: 1.2 cm LVOT area: 3.2 cm2 RVDd: 3.1 cm FS: 41.0 % Ao root diam: 2.7 cm LAV(MOD-bp): 32.8 ml LVAd ap4: 32.7 cm2 LAV(MOD-bp) Indexed: 15.1 ml/m2 LVLd ap4: 8.1 cm LAV(MOD-sp2): 31.4 ml EDV(MOD-sp4): 107.6 ml LAV(MOD-sp4): 31.9 ml EDV(sp4-el): 112.4 ml LVAs ap4: 15.3 cm2 LVLs ap4: 6.6 cm ESV(MOD-sp4): 31.2 ml ESV(sp4-el): 30.1 ml EF(MOD-sp4): 71.0 % EF(sp4-el): 73.2 % LVAd ap2: 35.8 cm2 SV(MOD-sp4): 76.4 ml SV(MOD-sp2): 83.7 ml LVLd ap2: 8.5 cm EDV(MOD-sp2): 122.8 ml EDV(sp2-el): 127.5 ml LVAs ap2: 18.3 cm2 LVLs ap2: 7.1 cm ESV(MOD-sp2): 39.1 ml ESV(sp2-el): 40.1 ml EF(MOD-sp2): 68.2 % SV(sp4-el): 82.3 ml LA dimension(2D): 4.1 cm LA A4 area: 13.7 cm2 RA A4 area: 15.3 cm2 TAPSE: 2.9 cm Time Measurements MV dec time: 0.23 sec Doppler Measurements & Calculations MV E max al: 141.1 cm/sec Lat Peak E' Al: 7.4 cm/sec Med Peak E' Al: 9.1 cm/sec MV A max al: 121.3 cm/sec E/E' lat: 19.0 E/E' med: 15.6 MV E/A: 1.2 Ao V2 max: 405.7 cm/sec LV V1 max: 118.7 cm/sec MV dec slope: 637.8 cm/sec2 Ao max P.8 mmHg LV V1 max P.9 mmHg Ao V2 mean: 306.5 cm/sec LV V1 mean P.4 mmHg Ao mean P.4 mmHg LV V1 mean: 88.9 cm/sec Ao V2 VTI: 109.2 cm LV V1 VTI: 31.9 cm AV (velocity ratio): 0.29 ANTONINA(I,D): 0.92 cm2 ANTONINA(V,D): 0.93 cm2 SV(LVOT): 100.9 ml PA V2 max: 122.7 cm/sec PA V2 mean: 85.3 cm/sec ECHO/Echo Complete Interpretation Summary The estimated ejection fraction is 65 %. Mild concentric left ventricular hypertrophy. Mild diffuse mitral valve thickening. Moderate mitral annular calcification. Mild (1+) mitral valve insufficiency. Mean aortic valve gradient 40 mmHg. Moderate to severe aortic stenosis. Ordering Physician: Ghassan Johnson Referring Physician: Wade Padilla Performed By: Deana Downey, SABRINA, RVT
[2023-09-25] MEDS: DiphenhydrAMINE 25 MG Capsule PO (21:43)
[2023-09-25] MEDS: Famotidine 20 MG Tablet PO (21:44)
[2023-09-26] VITALS (17 sets, daily range): BP systolic 114–139; BP diastolic 57–75; PULSE 60–78; RESP 14–20; TEMP 36.3–36.7; O2SAT 91–98
[2023-09-26] MEDS: Ipratropium/Albuterol Sulfate 3 ML AMPUL.NEB INHALATION ×4 (00:33→19:23)
[2023-09-26] MEDS: 0.9% Saline Lock 10 ML Syringe IV ×2 (05:47→15:14)
--- NOTE | 2023-09-26 05:55 | EKG12_ITS ---
Test Reason : PRE-OP Blood Pressure : / mmHG Vent. Rate : 056 BPM Atrial Rate : 056 BPM P-R Int : 136 ms QRS Dur : 088 ms QT Int : 446 ms P-R-T Axes : 074 071 065 degrees QTc Int : 430 ms Sinus bradycardia Otherwise normal ECG When compared with ECG of 25-SEP-2023 09:46, MANUAL COMPARISON REQUIRED, DATA IS UNCONFIRMED Confirmed by ISABEL GUNDERSON, BON ([id number]), story editor ISIDRA CARLOS ([id number]) on 09/27/2023 10:40:19 AM Referred By: VICTORINO Confirmed By:BON HALL MD
[2023-09-26 06:39] LABS: International Normalized Ratio 1.4; Prothrombin Time (Protime)PT. 17.3 SECONDS (11.7-14.9)
[2023-09-26 06:47] LABS: Troponin-I HS 71 pg/mL (3.0-78.0)
[2023-09-26] MEDS: Aspirin E.C. 81 MG Tablet PO (07:59)
[2023-09-26] MEDS: Famotidine 20 MG Tablet PO ×2 (07:59→21:38)
[2023-09-26] MEDS: Gabapentin 300 MG Capsule PO ×2 (07:59→17:15)
[2023-09-26] MEDS: hydroCHLOROthiazide 25 MG Tablet PO (07:59)
[2023-09-26] MEDS: DiphenhydrAMINE 25 MG Capsule PO (07:59)
[2023-09-26] MEDS: Azithromycin 250 MG Tablet 500 MG PO (08:00)
--- NOTE | 2023-09-26 09:02 | HP.PCM.HOS_ITS ---
HPI - General General Date of Admission: 09/25/23 Date of Service: 09/25/23 Chief Complaint: Cough, shortness of breath HPI Narrative The date of this encounter is: 09/25/2023-NAKUL BASSETT, is a 72 M who presents to the emergency room at [facility] with complaints of cough with yellow and green sputum production along with sinus congestion over the last 2 weeks, he has been treated as an outpatient for bronchitis with antibiotics, patient has a history of COPD, he is not on any oxygen. Patient is currently a smoker. Patient denies any fever at home, he states he has felt chills but these are minor. Patient denied any chest pain to this examiner. Workup in the emergency room included a CBC which revealed a normal white blood cell count, hemoglobin was 12.2 chemistry panel was unremarkable, patient had a troponin drawn and this was abnormal with a troponin of 212. Patient had an EKG which showed a sinus bradycardia without evidence of ST-T wave abnormality. CTA of the chest was performed and showed no evidence of pulmonary embolism, there were scattered interstitial fibrotic scarring both lungs, there is no infiltrate noted, there is no evidence of pulmonary edema or CHF. I contacted cardiology and discussed the case with them, the scientific process operator agreeted see the patient in consultation, cardiology stated that they would perform a cardiac catheterization on the patient tomorrow if he was stable. Luis E lora will be admitted to PCU for exacerbation of COPD, bronchitis, and type II non-STEMI. Cardiac enzymes will be cycled, echocardiogram will be obtained, he will be treated with IV corticosteroids and p.o. antibiotics. Aerosol treatments will be administered. Patient is currently on Coumadin secondary to a VTE in the past, he will be given IV vitamin K and INR tomorrow will be rechecked. Patient does see Dr. Chandler for aortic valvular disease.-aortic stenosis. 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 Lymphadenopathy Nail avulsion, toe Nonrheumatic aortic (valve) stenosis with insufficiency Obesity Oral thrush Orthostasis LIZA (obstructive sleep apnea) Peripheral neuropathy Post-phlebitic syndrome Recurrent epistaxis Shortness of breath Sinusitis Skin lesion Upper respiratory tract infection Urinary frequency Home Medications calcium carbonate 600 mg calcium (1,500 mg) tablet (Calcium) 600 mg PO DAILY SUPPLEMENT 08/24/19 [History Last Taken 12/24/19 08:00] ascorbic acid (vitamin C) 1,000 mg tablet 1 g PO DAILY SUPPLEMENT 03/23/20 [History Last Taken Unknown] leg brace (Ankle Brace) #1 ea 02/09/21 [Rx Last Taken Unknown] leg brace (Knee Support Brace) #1 ea 02/09/21 [Rx Last Taken Unknown] rosuvastatin 20 mg tablet 20 mg PO DAILY CHOLESTEROL #90 tabs 11/05/22 [Rx Last Taken Unknown] gabapentin 300 mg capsule 300 mg PO BID NERVE PAIN 3 months #180 caps 05/10/23 [Rx Last Taken Unknown] warfarin 4 mg tablet 4 mg PO 5XW previous blood clots #90 tabs 09/16/23 [Rx Last Taken 09/24/23] benzonatate 100 mg capsule 100 mg PO BID-TID PRN cough #90 caps 09/19/23 [Rx Last Taken Unknown] cholecalciferol (vitamin D3) 25 mcg (1,000 unit) tablet (Vitamin D3) 25 mcg PO DAILY SUPPLEMENT 09/25/23 [History Last Taken Unknown] hydrochlorothiazide 25 mg tablet 25 mg PO DAILY BLOOD PRESSURE 09/25/23 [History Last Taken Unknown] warfarin 2 mg tablet 6 mg PO .mondays and fridays previous blood clots 09/25/23 [History Last Taken Unknown] zinc sulfate 50 mg zinc (220 mg) capsule 50 mg PO DAILY PRN SUPPLEMENT 09/25/23 [History Last Taken Unknown] Allergy/AdvReac Type Severity Reaction Status Date / Time Iodinated Contrast Media AdvReac Intermediate Unknown Verified 09/18/23 11:13 [Iodinated Contrast Media - IV Dye] oxycodone AdvReac Other Verified 09/18/23 11:13 Family History Father Lung cancer Uncle Cancer Grandfather Myocardial infarction Grandmother Myocardial infarction Mother Myocardial infarction, Onset Age: 90 Surgical History History of arthroscopy of left knee History of back surgery History of nasal polypectomy History of transurethral resection of prostate (~01/2020) History of umbilical hernia repair History of wisdom tooth extraction Status post hammer toe correction Social History Smoking Status: Current every day smoker tobacco type: cigarettes Tobacco: How many years used: 50 second hand exposure: Yes quit status: considering quitting alcohol intake: current alcohol intake frequency: holidays/special occasions only substance use type: does not use caffeine: Yes Type: coffee Number of servings: 2 and tea Number of servings: 1 what type of physical activity do you participate in: none ROS Constitutional Constitutional: Reports chills and fatigue; Denies anorexia, change in weight, fever(s), night sweats or weakness Eyes Eyes: Denies blurry vision, change in vision, discharge from eye(s) or eye pain Cardiovascular Cardiovascular: Denies chest pain, claudication, edema or palpitations Respiratory/Chest Respiratory/Chest: Reports productive cough; Denies cough, hemoptysis, shortness of breath at rest or shortness of breath with exertion Gastrointestinal Gastrointestinal: Denies abdominal pain, constipation, diarrhea, hematemesis, hematochezia, melena, nausea or vomiting Genitourinary Genitourinary: Denies dysuria, hematuria, urinary frequency, urinary hesitancy, urinary incontinence or urinary urgency Musculoskeletal Musculoskeletal: Denies back pain, joint pain, joint stiffness, joint swelling, myalgias or neck pain Neurologic Neurologic: Denies abnormal gait, abnormal speech, dizziness, focal weakness, headache(s), loss of vision, numbness, other visual disturbances, paresthesias, syncope or tingling Psychiatric Psychiatric: Denies anxiety, cognitive impairment, depression, irritability, mood swings or suicidal ideation Endocrine Endocrinology: Denies change in body appearance, cold intolerance, excessive sweating, heat intolerance, polydipsia or polyuria Hematologic/Lymphatic Hematologic/Lymphatic: Denies none, anemia, easy bleeding, easy bruising or lymphadenopathy Allergic/Immunologic Allergic/Immunologic: Denies rhinitis, urticaria, eczemia or asthma Vital Signs Vital Signs Vital Signs: 09/25/23 09:42 09/25/23 10:04 09/25/23 10:04 Temperature Temperature Source Pulse Rate 76 56 L Pulse Strength Respiratory Rate 22 H 20 H Respiratory Effort Short of Breath Labored Respiratory Depth Normal Respiratory Pattern Tachypnea Tachypnea Blood Pressure Blood Pressure Mean Blood Pressure Source Blood Pressure Position Blood Pressure Location Pulse Ox 94 Oxygen Delivery Method Room Air Room Air Oxygen Flow Rate (L/min) 09/25/23 13:24 09/25/23 13:47 09/25/23 14:00 Temperature 97.8 F Temperature Source Temporal Pulse Rate 73 55 L Pulse Strength Respiratory Rate 16 20 H Respiratory Effort Short of Breath Respiratory Depth Normal Respiratory Pattern Tachypnea Blood Pressure 160/71 H Blood Pressure Mean 100 Blood Pressure Source Monitor Blood Pressure Position Semi-Fowlers Blood Pressure Location Right Arm Pulse Ox 98 Oxygen Delivery Method Room Air Room Air Oxygen Flow Rate (L/min) 09/25/23 17:00 09/25/23 19:14 09/25/23 21:40 Temperature 97.7 F L Temperature Source Oral Pulse Rate 75 63 Pulse Strength Respiratory Rate 18 16 Respiratory Effort Respiratory Depth Respiratory Pattern Normal Blood Pressure 143/59 H Blood Pressure Mean 87 Blood Pressure Source Monitor Blood Pressure Position Semi-Fowlers Blood Pressure Location Right Arm Pulse Ox 94 96 Oxygen Delivery Method Room Air Room Air Oxygen Flow Rate (L/min) 09/26/23 00:33 09/25/23 22:00 09/25/23 22:00 Temperature Temperature Source Pulse Rate 62 Pulse Strength Normal (2+) Respiratory Rate 20 H Respiratory Effort Normal Non-Labored Respiratory Depth Normal Respiratory Pattern Normal Normal Blood Pressure Blood Pressure Mean Blood Pressure Source Blood Pressure Position Blood Pressure Location Pulse Ox Oxygen Delivery Method Room Air Oxygen Flow Rate (L/min) 09/26/23 03:49 09/26/23 03:57 09/26/23 07:57 Temperature 97.7 F L 97.7 F L Temperature Source Oral Oral Pulse Rate 64 64 Pulse Strength Respiratory Rate 18 16 Respiratory Effort Normal Non-Labored Respiratory Depth Normal Respiratory Pattern Normal Blood Pressure 132/57 H 137/68 H Blood Pressure Mean 82 91 Blood Pressure Source Monitor Monitor Blood Pressure Position Semi-Fowlers Semi-Fowlers Blood Pressure Location Right Arm Right Arm Pulse Ox 96 96 Oxygen Delivery Method Nasal Cannula Nasal Cannula Room Air Oxygen Flow Rate (L/min) 2 2 Weight Weight: 100.6 kg Body Mass Index (BMI) 31.8 Physical Exam Const alert, oriented x3, no apparent distress and healthy appearing General Appearance: cooperative, well kempt and well developed Orientation / Consciousness: awake, oriented to person, oriented to place and oriented to time HEENT normocephalic, head/scalp atraumatic, hearing grossly normal bilaterally and moist oral mucous membranes Eyes PERRL, EOMs intact bilaterally and conjunctivae normal Neck supple, no JVD, thyroid normal and no carotid bruits General: trachea midline Resp normal respiratory effort Auscultation: wheezes expiratory wheezes, scattered wheezes and throughout; Negative for rales or rhonchi Cardio regular rate, regular rhythm, S1 normal heart sound, S2 normal heart sound, no murmurs, no rub and no gallops GI normal to inspection, nondistended, normoactive bowel sounds, soft to palpation, non-tender and non-distended Extremity no clubbing, cyanosis or edema Skin no rashes or lesions noted General Skin Exam: no breakdown Neuro oriented x3, CN's II-XII intact bilaterally, moves all extremities, no focal motor deficits and no sensory deficits noted Sensorium / Orientation: awake and alert Speech: speech normal Psych affect normal Results Lab / Micro Data 09/25/23 10:09 09/25/23 10:09 Labs: Laboratory Results - last 24 hr 09/25/23 10:00: PT 33.1 H, INR 3.2 09/25/23 10:09: WBC 10.4, RBC 3.77 L, Hgb 12.6 L, Hct 38.8 L, MCV 102.9 H, MCH 33.4 H, MCHC 32.5, RDW Std Deviation 56.0 H, RDW Coeff of Marcelle 14.7 H, Plt Count 168, MPV 9.4, Immature Gran % (Auto) 0.500, Neut % (Auto) 64.4, Lymph % (Auto) 21.9, Murray % (Auto) 12.1 H, Eos % (Auto) 0.8, Baso % (Auto) 0.3, Absolute Neuts (auto) 6.7, Absolute Lymphs (auto) 2.28, Nucleated RBC % 0, Sodium 136, Potassium 4.2, Chloride 103, Carbon Dioxide 29.0, Anion Gap 4 L, BUN 22 H, Creatinine 1.07, Estim Creat Clear Calc 74.63, Est GFR (MDRD) Af Amer 87, Est GFR (MDRD) Non-Af 72, BUN/Creatinine Ratio 20.6 H, Glucose 108 H, Calcium 8.8, Troponin I High Sens 212 H*, B-Natriuretic Peptide 147.1 H 09/25/23 12:20: Troponin I High Sens 175 H* 09/25/23 13:06: PT 29.6 H, INR 2.8 09/25/23 16:27: Troponin I High Sens 109 H 09/26/23 06:00: PT 17.3 H, INR 1.4, Troponin I High Sens 71 Micro: Microbiology 09/25/23 10:00 Mucosa - Nasopharyngeal SARS-CoV-2, Influenza & RSV (PCR) - Final Imagaing Radiology Impression Chest CTA 09/25/23 09:32 IMPRESSION: 1. No demonstrated pulmonary embolism or arterial dissection. 2. Scattered interstitial fibrotic scarring is present in both lungs. There is no demonstrated pneumonic consolidation or infiltrates. No pulmonary edema or pleural effusion is seen Electronically Signed: Danyel Hargrove MD at 12:33 EST Reading Location ID and State: [facility] / [place] , Service support , Facial/Sinus 09/25/23 09:[address]: [address] of the facial bones without contrast. 2. There is diffuse polypoid formation/lobularity of the bilateral nasal turbinates and mild hypertrophy of the turbinates. Electronically Signed: Danyel Hargrove MD at 12:16 EST Reading Location ID and State: / [place] , Service support , Assessment & Plan Assessment/Plan (1) COPD exacerbation: PLAN: Plan 1. Exacerbation of COPD with bronchitis-patient will be admitted to PCU, he will receive IV corticosteroids and aerosol treatments. I will place him on oral Zithromax, pulse ox will be monitored #2 type II [id number] will see the patient in consultation, he will undergo cardiac catheterization tomorrow if he remains stable, echocardiogram was ordered #3 hyperlipidemia-patient is on a statin #4 chronic use of 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s due to past history of VTE-patient will be given IV vitamin K due to his impending cardiac cath tomorrow. #5 aortic stenosis-patient follows with cardiology for this, complicates care, medical course, recovery, and prognosis #6 essential hypertension-patient is on hydrochlorothiazide Total clinical time spent by myself addressing patient's medical issues, reviewing all of his data, and collaborating with patient's care team: 75 minutes Charges/Coding Visit Charges Inpatient E&M: 92894 Init Hosp L3
--- NOTE | 2023-09-26 10:29 | CASEMGMT ---
Insurance review for hospitals In-network with?[facility] AARP insurance if transfer is recommended is as follows:?[facility], [place], [facility], [facility], [facility], [facility], [facility] ([facility]), [facility], [facility], and . Ladi German, Discharge Planning Asst.
--- NOTE | 2023-09-26 11:28 | PCM.OP.PRO ---
Procedure Report Left heart catheterization 1. Moderate sedation 2. Selective left coronary angiography 3. Selective right coronary angiography 4. Placement of TR band to close the right radial artery arteriotomy site. Consent; Risk and benefit of the procedure explained in detail to the patient elected to proceed informed consent obtained. Diagnostic catheter used 1. 5 Lebanese JL 3.5 2. 5 Lebanese JR4 Preprocedure diagnosis; 72-year-old patient, presented to the ER at [facility] with complaint of cough yellow and green sputum along with sinus congestion this has been over the last 2 weeks. Also had symptoms of chest pain Cardiac consultation requested as he has elevated cardiac markers with troponin level up to 212. Has an EKG which showed sinus bradycardia there is no significant ST?T abnormality noted in the EKG. And a CT of the chest was performed and showed no evidence of pulm embolism. There were scattered interstitial fibrotic scarring lesions both lungs. Based on the clinical presentation patient has further evaluation by echocardiogram which showed LV function preserved, with moderate aortic valve stenosis he had a history of mitral valve stenosis and on clinical exam had an ejection systolic murmur heard in the aortic valve area. Based on his clinical presentation with the diagnosis of non-ST elevation LA his medication has been changed and warfarin has been discontinued INR has been checked. Will proceed with cardiac catheterization today. Procedure in detail; Patient brought to the Admitting Clerk in fasting state Right radial artery area prepped and draped in the usual sterile fashion 6 Lebanese sheath placed in the right radial artery Will proceed with the 5 Lebanese JL 3 5 diagnostic catheter under fluoroscopic guidance We cannulated the left main Multiple views of the left coronary system were obtained Noted that he had bradycardia and ventricularization of the pressure with injection of the contrast. All the images were reviewed Following this we proceed with 5 Lebanese JR4 and selective angiographic view of the right coronary system were obtained which is 2 views in ANGOLAN cranial and BONDS cranial views. Following this all catheter removed Hemostasis maintained with the placement of TR band to the right radial artery arteriotomy site. Coronary angiographic findings; 1. Left main normal angiographically multiple views, bifurcating into left anterior descending has,around 30% and D2-diagonal branch had ostial lesion of around 50 to 60% The LAD is a large vessel and reach all the way to the apex with abundant septal branches 3. Left circumflex large vessel with ostium and proximal circumflex had nonobstructive sclerosis of around 30 5. RCA large dominant mid RCA has nonobstructive atherosclerosis of around 20-30%, RCA bifurcating into posterolateral and PDA. This patient has clear evidence of contrast allergy with injection of the contrast noted ventricularization of the pressure as well as bradycardia and patient has symptoms of cough he was premedicated with Solu-Medrol. Pepcid and Benadryl. He has nonobstructive CAD with moderate aortic stenosis by the echocardiogram, LV function is normal by echocardiogram Conclusion recommendation; Patient to continue medical therapy with risk factor control. He has been on warfarin for pulmonary embolism would recommend to resume his warfarin and to follow-up with his primary care physician as well to follow-up with shot examiner, Dr. Rhodes I discussed the finding of cardiac catheterization with the patient as well as with his family. Ghassan Johnson MD,FACC,[facility]
--- NOTE | 2023-09-26 12:10 | CHAPLAIN ---
Type of Pastoral Visit _x__ Initial Visit ___ Follow-up Visit ___ On-call Visit ___ General Patient Visit ___ Spiritual Assessment ___ Family Conference ___ Bereavement ___ Rapid Response ___ Code Blue ___ Other (describe below) Pastoral Care Referral From _x__ Patient ___ Family ___ Nurse ___ Physician ___ Vitamin Manager ___ Regulatory Affairs Coordinator ___ Other (describe below) Sacrament/Intervention _x__ Active listening ___ Anointing ___ Confucianist ___ Bereavement ___ Communion _x__ Lawanda exploration ___ _x__ Life review _x__ Prayer ___ Reconciliation ___ Sacrament of Sick ___ Supportive presence ___ Wedding ___ Other (describe below) Pastoral Comments 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
--- NOTE | 2023-09-26 13:43 | PCM.PN.CARD ---
Subjective Subjective Pt seen and examined today. No issues last night. Objective Data Vital Signs: Vital Signs Temp Pulse Resp BP Pulse Ox O2 Del Method O2 Flow Rate 97.8 F 75 20 H 114/61 96 Nasal Cannula 2 09/26/23 13:15 09/26/23 13:15 09/26/23 13:15 09/26/23 13:15 09/26/23 13:15 09/26/23 13:15 09/26/23 13:15 Oxygen Flow Rate (L/min) 2 Oxygen Delivery Method Nasal Cannula Weight: 221 lb 12.56 oz Body Mass Index (BMI) 31.8 Intake & Output: Intake and Output for Last 24 Hours 09/24/23 09/25/23 09/26/23 23:59 23:59 23:59 Intake Total 1350.5 / 1350.5 0 / 0 Balance 1350.5 / 1350.5 0 / 0 Lab / Micro Data 09/25/23 10:09 09/25/23 10:09 Labs: Laboratory Results - last 24 hr 09/25/23 16:27: Troponin I High Sens 109 H 09/26/23 06:00: PT 17.3 H, INR 1.4, Troponin I High Sens 71 Micro: Microbiology 09/25/23 10:00 Mucosa - Nasopharyngeal SARS-CoV-2, Influenza & RSV (PCR) - Final Cardiology Labs/Tests 09/26/23 06:00: PT 17.3 H, INR 1.4 Physical Exam Const alert, oriented x3, no apparent distress and healthy appearing HEENT normocephalic, head/scalp atraumatic, hearing grossly normal bilaterally, external ears normal, external nose normal and moist oral mucous membranes Eyes PERRL, EOMs intact bilaterally, conjunctivae normal and no scleral icterus Neck no lymphadenopathy, supple and no JVD Resp normal respiratory effort and clear to auscultation bilaterally Cardio regular rate, regular rhythm, S1 normal heart sound, S2 normal heart sound, no rub, no gallops, no clicks, no JVD and peripheral pulses 2+ throughout Heart Sounds: murmur systolic II/ harsh GI normal to inspection, nondistended, normoactive bowel sounds, soft to palpation, non-tender and non-distended Extremity normal to inspection, normal capillary refill, no clubbing, cyanosis or edema and no pedal edema Neuro oriented x3, CN's II-XII intact bilaterally, moves all extremities and no focal motor deficits Psych cooperative and affect normal Assessment & Plan Assessment/Plan (1) Elevated troponin: (2) Nonrheumatic aortic (valve) stenosis with insufficiency: (3) Essential hypertension: (4) Hyperlipidemia: QUALIFIERS: Hyperlipidemia type: unspecified Qualified Code(s): E78.5 - Hyperlipidemia, unspecified PLAN: Plan echocardiogram was similar to previous He did undergo a heart cath today for his elevated troponin, this demonstrated Left main normal angiographically multiple views, bifurcating into left anterior descending has,around 30% and D2-diagonal branch had ostial lesion of around 50 to 60% The LAD is a large vessel and reach all the way to the apex with abundant septal branches Left circumflex large vessel with ostium and proximal circumflex had nonobstructive sclerosis of around 30 RCA large dominant mid RCA has nonobstructive atherosclerosis of around 20-30%, RCA bifurcating into posterolateral and PDA. He has nonobstructive CAD with moderate aortic stenosis by the echocardiogram, LV function is normal by echocardiogram No changes in his cardiac management. His coumadin can be resumed for his PE. will continue to follow in the office. Capacity Legal Jewel Hole Driller Reflex Medical hold order details:: IF a medical hold is selected below, a suggested order for a MEDICAL HOLD will reflex upon signing the document. Next of kin: [place] law dictates a PRIORITY LIST for identifying legal decision-maker/legal next of kin in the following order (LNOK): 1st: The patient?s legal guardian, if any 2nd: The patient's spouse (if status is questionable, consult Risk Management) 3rd: The patient?s adult child(chandler) (majority, if multiple children) 4th: The patient?s parents 5th: The patient?s adult siblings (majority, if multiple children siblings) Charges/Coding Visit Charges Inpatient E&M: 69338 Subs Hosp L3
--- NOTE | 2023-09-26 17:45 | CASEMGMT ---
RN?CM?UPPER SHAPER?CM?to room to meet with patient for initial transition planning/care coordination?assessment.?RN?CM?introduced self and role at [facility].? Pt voices understanding and consents to?assessment?at this time.? Pt resting in bed in no distress at this time.? Pt is A/O at this time and answers all questions appropriately.?? Care providers, pharmacy, and demographics verified/updated at this time. PCP: Dr Padilla Specialists: Dr Carranza-ENT, Dr Rhodes-cardiology, Dr La-pulmonology, Dr Arechiga-urology Preferred Pharmacy: [facility] Retail @ discharge Insurance: AARP [facility] Prescription Benefit:?yes Living Will/HPOA: Pt does not currently have LW/HCPOA and would like to to complete. SW referral placed. Pt made aware if SW unable to meet w/him prior to discharge, that he can make an appt w/SW as an out-pt. LNOK: , [place] Living Arrangements: Lives w/his in 2-story home w/basement (where family room is) w/1 step to enter. FFSU, but does go to family room often. Denies difficulty w/stairs. Transportation:?Pt states drives self and states no transportation concerns at this time.? also drives. DME: States has the following DME:?pulse ox, BP machine, several canes (uses only occasionally). He does have a walker available, but does not use. ?Pt states no need for further DME at this time.? HHC/SNF: No hx of either. Denies needs and no needs identified. Pt wishes to return home and states has no concerns with going home at time of discharge.? CM?to follow for any discharge planning/needs.? Pt voices no concerns/needs at this time.? Advised pt to ask for?CM?if any questions/concerns/needs arise.? Voices understanding. PLAN:??Home Jerry ADKINSN?RN?CM
--- NOTE | 2023-09-26 19:00 | PN.HOSP_ITS ---
Reason for Visit Reason for Visit: Diagnoses Hyperlipidemia, unspecified (09/25/23) Essential (primary) hypertension (09/25/23) Nonrheumatic aortic (valve) stenosis with insufficiency (09/25/23) Chronic obstructive pulmonary disease with (acute) exacerbation (09/25/23) Other specified abnormal findings of blood chemistry (09/25/23) Subjective Subjective Patient was seen and examined today, he underwent a cardiac catheterization which showed nonobstructive coronary disease. Patient is still having expiratory wheezes today Objective Data Objective Data Vital Signs: Vital Signs Temp Pulse Resp BP Pulse Ox O2 Del Method O2 Flow Rate 97.4 F L 72 16 117/59 L 94 Nasal Cannula 2 09/26/23 16:00 09/26/23 16:00 09/26/23 16:00 09/26/23 16:00 09/26/23 16:00 09/26/23 16:00 09/26/23 16:00 Oxygen Flow Rate (L/min) 2 Oxygen Delivery Method Nasal Cannula Weight: 100.6 kg Body Mass Index (BMI) 31.8 Intake & Output: Intake and Output for Last 24 Hours 09/24/23 09/25/23 09/26/23 23:59 23:59 23:59 Intake Total 1350.5 / 1350.5 0 / 0 Balance 1350.5 / 1350.5 0 / 0 Lab / Micro Data 09/25/23 10:09 09/25/23 10:09 Labs: Laboratory Results - last 24 hr 09/26/23 06:00: PT 17.3 H, INR 1.4, Troponin I High Sens 71 Micro: Microbiology 09/25/23 10:00 Mucosa - Nasopharyngeal SARS-CoV-2, Influenza & RSV (PCR) - Final Physical Exam Const alert, oriented x3, no apparent distress and healthy appearing HEENT normocephalic, head/scalp atraumatic, hearing grossly normal bilaterally, external ears normal, external nose normal and moist oral mucous membranes Eyes PERRL, EOMs intact bilaterally, conjunctivae normal and no scleral icterus Neck no lymphadenopathy, supple and no JVD Resp normal respiratory effort, no retractions and no use of accessory muscles Resp Narrative: There are marked expiratory wheezes bilaterally Cardio regular rate, regular rhythm, S1 normal heart sound, S2 normal heart sound, no murmurs, no rub, no gallops, no clicks, no JVD and peripheral pulses 2+ throughout Heart Sounds: murmur systolic II/ harsh GI normal to inspection, nondistended, normoactive bowel sounds, soft to palpation, non-tender and non-distended Extremity normal to inspection, normal capillary refill, no clubbing, cyanosis or edema and no pedal edema Neuro oriented x3, CN's II-XII intact bilaterally, moves all extremities and no focal motor deficits Psych cooperative and affect normal Assessment & Plan Assessment/Plan (1) COPD exacerbation: PLAN: Plan 1. 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 Next of kin: [place] law dictates a PRIORITY LIST for identifying legal decision-maker/legal n ext of kin in the following order (LNOK): 1st: The patient?s legal guardian, if any 2nd: The patient's spouse (if status is questionable, consult Risk Management) 3rd: The patient?s adult child(chandler) (majority, if multiple children) 4th: The patient?s parents 5th: The patient?s adult siblings (majority, if multiple children siblings) Charges/Coding Visit Charges Inpatient E&M: 00994 Subs Hosp L2
[2023-09-27] VITALS (11 sets, daily range): BP systolic 112–149; BP diastolic 59–72; PULSE 56–79; RESP 15–20; TEMP 36.6–36.8; O2SAT 93–98
[2023-09-27] MEDS: Ipratropium/Albuterol Sulfate 3 ML AMPUL.NEB INHALATION ×4 (01:05→19:02)
[2023-09-27] MEDS: Albuterol 2.5 MG/3 ML VIAL.NEB. INHALATION (05:36)
[2023-09-27] MEDS: Famotidine 20 MG Tablet PO ×2 (08:12→21:07)
[2023-09-27] MEDS: Aspirin E.C. 81 MG Tablet PO (08:12)
[2023-09-27] MEDS: hydroCHLOROthiazide 25 MG Tablet PO (08:12)
[2023-09-27] MEDS: Azithromycin 250 MG Tablet 500 MG PO (08:12)
[2023-09-27] MEDS: Gabapentin 300 MG Capsule PO ×2 (09:59→16:39)
[2023-09-27] MEDS: 0.9% Saline Lock 10 ML Syringe IV (14:05)
[2023-09-27] MEDS: BENZOCAINE/MENTHOL 1 LOZENGE MUCOUS MEM ×2 (14:32→16:43)
[2023-09-27] MEDS: guaiFENesin Dm 10 ML UDC PO (14:32)
--- NOTE | 2023-09-27 15:35 | CASEMGMT ---
SW was informed patient would like to complete Healthcare Power of Shoe Stitcher and Healthcare Living Will. SW completed documents with patient. Copies were made and given to patient along with originals. SW also placed a copy of each in patient's chart. Camille ABDULLAHI
--- NOTE | 2023-09-27 19:37 | PN.HOSP_ITS ---
Reason for Visit Reason for Visit: Diagnoses Hyperlipidemia, unspecified (09/25/23) Essential (primary) hypertension (09/25/23) Nonrheumatic aortic (valve) stenosis with insufficiency (09/25/23) Chronic obstructive pulmonary disease with (acute) exacerbation (09/25/23) Other specified abnormal findings of blood chemistry (09/25/23) Subjective Subjective Patient was seen and examined today, he has been walking in the [place] and complains of some shortness of breath but the patient is on room air currently. Patient is still having marked expiratory wheezes. Objective Data Objective Data Vital Signs: Vital Signs Temp Pulse Resp BP Pulse Ox O2 Del Method O2 Flow Rate 97.9 F 71 15 129/70 H 97 Room Air 2 09/27/23 16:35 09/27/23 16:35 09/27/23 16:35 09/27/23 16:35 09/27/23 16:35 09/27/23 16:46 09/27/23 16:35 Oxygen Flow Rate (L/min) 2 Oxygen Delivery Method Room Air Weight: 100.6 kg Body Mass Index (BMI) 31.8 Intake & Output: Intake and Output for Last 24 Hours 09/25/23 09/26/23 09/27/23 23:59 23:59 23:59 Intake Total 1350.5 / 1350.5 0 / 0 1270 / 1270 Balance 1350.5 / 1350.5 0 / 0 1270 / 1270 Lab / Micro Data 09/25/23 10:09 09/25/23 10:09 Micro: Microbiology 09/25/23 10:00 Mucosa - Nasopharyngeal SARS-CoV-2, Influenza & RSV (PCR) - Final Radiography Diagnostic Testing: Radiology Impression Echocardiogram 09/25/23 17:17 Interpretation Summary The estimated ejection fraction is 65 %. Mild concentric left ventricular hypertrophy. Mild diffuse mitral valve thickening. Moderate mitral annular calcification. Mild (1+) mitral valve insufficiency. Mean aortic valve gradient 40 mmHg. Moderate to severe aortic stenosis. Ordering Physician: Ghassan Johnson Referring Physician: Wade Padilla Performed By: Deana Downey, SABRINA, RVT Physical Exam Const alert, oriented x3, no apparent distress and healthy appearing HEENT normocephalic, head/scalp atraumatic, hearing grossly normal bilaterally, external ears normal, external nose normal and moist oral mucous membranes Eyes PERRL, EOMs intact bilaterally, conjunctivae normal and no scleral icterus Neck no lymphadenopathy, supple and no JVD Resp normal respiratory effort, no retractions and no use of accessory muscles Resp Narrative: There are marked expiratory wheezes bilaterally Cardio regular rate, regular rhythm, S1 normal heart sound, S2 normal heart sound, no murmurs, no rub, no gallops, no clicks, no JVD and peripheral pulses 2+ throughout Heart Sounds: murmur systolic II/ harsh GI normal to inspection, nondistended, normoactive bowel sounds, soft to palpation, non-tender and non-distended Extremity normal to inspection, normal capillary refill, no clubbing, cyanosis or edema and no pedal edema Neuro oriented x3, CN's II-XII intact bilaterally, moves all extremities and no focal motor deficits Psych cooperative and affect normal Assessment & Plan Assessment/Plan (1) COPD exacerbation: PLAN: Plan 1. 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
[2023-09-28] VITALS (7 sets, daily range): BP systolic 139–144; BP diastolic 60–65; PULSE 61–83; RESP 16–18; TEMP 36.5–36.7; O2SAT 95–96
[2023-09-28] MEDS: Ipratropium/Albuterol Sulfate 3 ML AMPUL.NEB INHALATION ×3 (01:44→13:08)
[2023-09-28] MEDS: BENZOCAINE/MENTHOL 1 LOZENGE MUCOUS MEM ×2 (02:09→13:09)
[2023-09-28] MEDS: guaiFENesin Dm 10 ML UDC PO (02:09)
[2023-09-28 08:58] LABS: Hematocrit 38.6 % (40-54); Hemoglobin 12.6 g/dL (13.0-16.5); Mean Corp Hgb Conc 32.6 g/dL (32-36); Mean Corpuscular Hgb 33.3 pg (27.0-32.0); Mean Corpuscular Volume 102.1 fL (80-94); Mean Platelet Vol. 9.6 fl (6.2-12.0); Platelet Count 190 K/mm3 (150-450); RBC Distribution Width CV 14.9 % (11.6-14.6); Red Blood Count 3.78 M/mm3 (4.6-6.2); White Blood Count 14.6 K/mm3 (4.4-11.0)
[2023-09-28] MEDS: Aspirin E.C. 81 MG Tablet PO (09:00)
[2023-09-28] MEDS: Gabapentin 300 MG Capsule PO (09:00)
[2023-09-28] MEDS: hydroCHLOROthiazide 25 MG Tablet PO (09:00)
[2023-09-28] MEDS: Azithromycin 250 MG Tablet 500 MG PO (09:00)
[2023-09-28] MEDS: Famotidine 20 MG Tablet PO (09:01)
[2023-09-28 09:10] LABS: Anion Gap 5 (5-15); BUN 40 mg/dL (7-18); Calcium,Total 8.9 mg/dL (8.5-10.1); Chloride 104 mmol/L (98-107); Creatinine, Serum 1.11 mg/dL (0.70-1.30); EST Glomerular Filtration Rate 69 mL/min (>60); Est Glom Filt Rate - Afr Amer 84 mL/min (>60); Estimated Creatinine Clearance 71.51 ml/min; Glucose 148 mg/dL (74-106); Potassium 4.1 mmol/L (3.5-5.1); Sodium Level 136 mmol/L (136-145)
--- NOTE | 2023-09-28 12:49 | PCM.PN.HOSP ---
Reason for Visit Reason for Visit: Diagnoses Hyperlipidemia, unspecified (09/25/23) Essential (primary) hypertension (09/25/23) Nonrheumatic aortic (valve) stenosis with insufficiency (09/25/23) Chronic obstructive pulmonary disease with (acute) exacerbation (09/25/23) Other specified abnormal findings of blood chemistry (09/25/23) Subjective Subjective Patient seen at bedside this morning. Sitting up comfortably in bed, conversing normally, no acute distress. Patient on room air satting well at rest, no increased work of breathing noted. Nursing staff note that patient was walking on the floor this morning without supplemental oxygen, no shortness of breath noted. Patient states this morning that he feels somewhat improved from yesterday but continues to have significant cough and sore throat. States his sore throat has been improved by as needed benzocaine lozenges. Has had significant sputum production over the last few days, states sputum production is slowing down this morning. Denies any fevers or chills. States he has not been sleeping very well due to continued cough and a degree of jitteriness while on steroids. No other acute concerns morning. Objective Data Objective Data Vital Signs: Vital Signs Temp Pulse Resp BP Pulse Ox O2 Del Method O2 Flow Rate 97.7 F L 65 18 139/61 H 96 Room Air 0 09/28/23 08:57 09/28/23 08:57 09/28/23 08:57 09/28/23 08:57 09/28/23 10:20 09/28/23 08:57 09/28/23 10:20 Oxygen Flow Rate (L/min) [ 0 AMBULATING on Room Air] Oxygen Flow Rate (L/min) [At 0 REST on Room Air] Oxygen Flow Rate (L/min) 2 Oxygen Delivery Method Room Air Weight: 100.6 kg Body Mass Index (BMI) 31.8 Intake & Output: Intake and Output for Last 24 Hours 09/26/23 09/27/23 09/28/23 23:59 23:59 23:59 Intake Total 0 / 0 1270 / 1270 Balance 0 / 0 1270 / 1270 Lab / Micro Data 09/28/23 08:44 09/28/23 08:44 Labs: Laboratory Results - last 24 hr 09/28/23 08:44: WBC 14.6 H, RBC 3.78 L, Hgb 12.6 L, Hct 38.6 L, MCV 102.1 H, MCH 33.3 H, MCHC 32.6, RDW Std Deviation 56.0 H, RDW Coeff of Marcelle 14.9 H, Plt Count 190, MPV 9.6, Sodium 136, Potassium 4.1, Chloride 104, Carbon Dioxide 27.0, Anion Gap 5, BUN 40 H, Creatinine 1.11, Estim Creat Clear Calc 71.51, Est GFR (MDRD) Af Amer 84, Est GFR (MDRD) Non-Af 69, BUN/Creatinine Ratio 36.0 H, Glucose 148 H, Calcium 8.9 Micro: Microbiology 09/25/23 10:00 Mucosa - Nasopharyngeal SARS-CoV-2, Influenza & RSV (PCR) - Final Physical Exam Const alert, oriented x3 and no apparent distress Constitutional Narrative: Pleasant elderly male, obese, sitting comfortably in bed, conversing normally, no acute distress. General Appearance: cooperative and comfortable HEENT normocephalic, head/scalp atraumatic, hearing grossly normal bilaterally, nasal mucous membranes and turbinates normal and moist oral mucous membranes Eyes PERRL, EOMs intact bilaterally and conjunctivae normal Neck full ROM, no lymphadenopathy and supple Lymph Lymphatic: no lymphadenopathy noted Chest inspection of chest normal Resp Resp Narrative: Satting well on room air at rest, no increased work of breathing noted. Continues to have mild to moderate expiratory wheezes on exam. Otherwise good air movement throughout. No crackles noted. Cardio regular rate, regular rhythm, no murmurs and peripheral pulses 2+ throughout GI normal to inspection, nondistended, normoactive bowel sounds, soft to palpation, non-tender and non-distended Back/Spine normal ROM Extremity normal to inspection, full ROM and no pedal edema Skin no rashes or lesions noted Neuro no focal motor deficits and no sensory deficits noted Speech: speech normal Psych mental status grossly normal Assessment & Plan Assessment/Plan (1) COPD exacerbation: (2) Elevated troponin: PLAN: Plan Patient is a 72-year-old male who presented to [facility] ED on 09/25/2023 with worsening cough with sputum production and shortness of breath. 1. Acute exacerbation of COPD with bronchitis Presented with worsening cough with greenish sputum production for 2 weeks with shortness of breath. Known history of COPD, not on home O2. Current smoker as noted below. CTA chest on admit showed scattered interstitial fibrotic scarring, no pneumonic consolidation or infiltrates, no pulmonary edema or effusions. COVID, flu, RSV negative. Sputum culture negative. ? Continue DuoNebs every 6 hours scheduled. De-escalated to p.o. prednisone on 09/28, continue p.o. azithromycin with plan for 5-day courses of both. Continue guaifenesin, benzocaine lozenges as needed. Will need home O2 evaluation prior to discharge. 2. Elevated troponins ? Cardiology followed. TTE 09/26 showed EF 65%, mild concentric LV hypertrophy, moderate to severe aortic stenosis; essentially unchanged from echo in 05/2023. 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 Continue home aspirin, statin, hydrochlorothiazide. Continue home warfarin. Chronic medical conditions: ? CAD, hypertension, hyperlipidemia: Continue home aspirin, statin, hydrochlorothiazide. ? Obesity: BMI 31 on admit. Encouraged lifestyle modifications. Complicates hospital course, care and prognosis. ? Current smoker: Encouraged cessation. Denied need for nicotine replacement therapy while inpatient. ? 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 ? Aortic stenosis: Outpatient management per cardiology. DVT prophylaxis: Warfarin CODE STATUS: Full code, unverified Expected disposition: Home, 1 to 2 days Total clinical time spent by myself addressing the patient's medical issues, reviewing all the data, and collaborating with patient's care team: 35 minutes. Charges/Coding Visit Charges Inpatient E&M: 32063 Subs Hosp L2
--- NOTE | 2023-09-28 15:27 | DCINST_ITS ---
Discharge Instructions Diet Discharge Diet: No restrictions Activity Discharge Activity: No Restrictions Weight Bearing Status: Full weight bearing Follow Up Care Test Results: Test results from this visit will be discussed in further detail at your follow- up appointment, if applicable. Discharge Plan Admission Admit Date/Time: 09/25/23 12:38 Primary Reason for Your Visit: COPD exacerbation Attending Provider: Delvin Reyes Primary Care Provider: Wade Padilla Consulting Providers: Ghassan Johnson; Chris Pete Instructions Additional Instructions / Restrictions: Complete antibiotic and steroid course as noted below. Take medications as prescribed below. Follow-up with your primary care doctor as needed. Discharge Orders/Prescriptions Prescriptions: New aspirin 81 mg Tablet,Delayed Release (Dr/Ec) 81 mg PO BREAKFAST Qty: 30 0RF hydrochlorothiazide 25 mg Tablet 25 mg PO DAILY Qty: 30 0RF azithromycin 250 mg Tablet 500 mg PO Q24 2 Days Qty: 4 0RF prednisone 20 mg Tablet 40 mg PO BREAKFAST 3 Days Qty: 6 0RF albuterol sulfate 90 mcg/actuation HFA aerosol inhaler 1 inh inhalation Q6H PRN (Reason: shortness of breath or wheezing) Qty: 8.5 2RF Continued calcium carbonate [Calcium 600] 600 mg calcium (1,500 mg) tablet 600 mg PO DAILY ascorbic acid (vitamin C) 1,000 mg tablet 1 g PO DAILY (DME) Ankle Brace Misc See Rx Instructions .ROUTE .MEDSUPPLY Qty: 1 0RF Rx Instructions: As directed (DME) Knee Support Brace Misc See Rx Instructions .ROUTE .MEDSUPPLY Qty: 1 0RF Rx Instructions: As directed cholecalciferol (vitamin D3) [Vitamin D3] 25 mcg (1,000 unit) tablet 25 mcg PO DAILY zinc sulfate 50 mg zinc (220 mg) capsule 50 mg PO DAILY PRN (Reason: SUPPLEMENT) hydrochlorothiazide 25 mg tablet 25 mg PO DAILY warfarin 2 mg tablet 6 mg PO .mondays and fridays Patient Comments: TAKE 3 TABLETS BY MOUTH TWICE A WEEK MONDAYS AND FRIDAYS ONLY rosuvastatin 20 mg tablet 20 mg PO DAILY Qty: 90 3RF gabapentin 300 mg capsule 300 mg PO BID 90 Days Qty: 180 1RF warfarin 4 mg tablet 4 mg PO 5XW Qty: 90 1RF Protocol: Dose Management Protocol Text: Patient Instructed to take: warfarin 4 mg (1 Tab) on [place], [place], , , [place], [place] warfarin 4 mg (1.5 Tabs) on [place] Rx Instructions: Coumadin 4mg daily except Mon and Fri benzonatate 100 mg capsule 100 mg PO BID-TID PRN (Reason: cough) Qty: 90 3RF Referrals / Follow Up: Wade Padilla MD [Primary Care Provider] - Disposition Disposition (needs filled in before D/C Order can be placed): Home, Self Care
--- NOTE | 2023-09-28 15:34 | DS.PCM_ITS ---
Providers Date of Admission: 09/25/23 Date of Discharge: 09/28/23 Primary Care Physician: Dr. Wade Padilla MD Consultations 09/25/23 14:22 Consult: Cardiology Routine Consulting Provider: Ghassan Johnson Reason for Consult: NSTEMI EMERGENT Consult: No MD Notified: Yes Date Notified: 09/25/23 Time Notified: 12:46 Method of Notification: Verbal Reason For Visit: NSTEMI, EXAC OF COPD Diagnosis Discharge Diagnosis (1) COPD exacerbation: Status: Chronic Code(s): J44.1 - Chronic obstructive pulmonary disease with (acute) exacerbation (2) Elevated troponin: Status: Acute Code(s): R79.89 - Other specified abnormal findings of blood chemistry Medications at Discharge Home Medications calcium carbonate 600 mg calcium (1,500 mg) tablet (Calcium) 600 mg PO DAILY SUPPLEMENT 08/24/19 ascorbic acid (vitamin C) 1,000 mg tablet 1 g PO DAILY SUPPLEMENT 03/23/20 leg brace (Ankle Brace) #1 ea 02/09/21 leg brace (Knee Support Brace) #1 ea 02/09/21 rosuvastatin 20 mg tablet 20 mg PO DAILY CHOLESTEROL #90 tabs 11/05/22 gabapentin 300 mg capsule 300 mg PO BID NERVE PAIN 3 months #180 caps 05/10/23 warfarin 4 mg tablet 4 mg PO 5XW previous blood clots #90 tabs 09/16/23 benzonatate 100 mg capsule 100 mg PO BID-TID PRN cough #90 caps 09/19/23 cholecalciferol (vitamin D3) 25 mcg (1,000 unit) tablet (Vitamin D3) 25 mcg PO DAILY SUPPLEMENT 09/25/23 hydrochlorothiazide 25 mg tablet 25 mg PO DAILY BLOOD PRESSURE 09/25/23 warfarin 2 mg tablet 6 mg PO .mondays and fridays previous blood clots 09/25/23 zinc sulfate 50 mg zinc (220 mg) capsule 50 mg PO DAILY PRN SUPPLEMENT 09/25/23 albuterol sulfate 90 mcg/actuation aerosol inhaler 1 inh inhalation Q6H PRN shortness of breath or wheezing #8.5 grams 09/28/23 aspirin 81 mg tablet,delayed release 81 mg PO BREAKFAST #30 tabs 09/28/23 azithromycin 250 mg tablet 500 mg (2 x 250 mg) PO Q24 2 days #4 tabs 09/28/23 hydrochlorothiazide 25 mg tablet 25 mg PO DAILY #30 tabs 09/28/23 prednisone 20 mg tablet 40 mg (2 x 20 mg) PO BREAKFAST 3 days #6 tabs 09/28/23 Hospital Course Operations None Procedures EKG, Transthoracic echo and - ( CTA chest, CT facial bones without contrast) Summary of Care Provided Minutes Spent on Discharge: 35 Hospital Course: Patient is a 72-year-old male who presented to [facility] ED on 09/25/2023 with worsening cough with sputum production and shortness of breath. Hospital course as noted below. Discharged home in stable condition on 09/28/2023. 1. Acute exacerbation of COPD with bronchitis Presented with worsening cough with greenish sputum production for 2 weeks with shortness of breath. Known history of COPD, not on home O2. Current smoker as noted below. CTA chest on admit showed scattered interstitial fibrotic scarring, no pneumonic consolidation or infiltrates, no pulmonary edema or effusions. COVID, flu, RSV negative. Sputum culture negative. ? Improved with IV steroids, azithromycin and scheduled DuoNebs. Discharged home on p.o. prednisone and p.o. azithromycin with plan to complete 5-day course for both, stop date 09/30. 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 Prescribed short acting albuterol inhaler on discharge. Recommend the patient follows up with outpatient pulmonology for further management of COPD. 2. Elevated troponins ? Cardiology followed. TTE 09/26 showed EF 65%, mild concentric LV hypertrophy, moderate to severe aortic stenosis; essentially unchanged from echo in 05/2023. 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 Continue home aspirin, statin, hydrochlorothiazide. Continue home warfarin. Chronic medical conditions: ? CAD, hypertension, hyperlipidemia: Continue home aspirin, statin, hydrochlorothiazide. ? Obesity: BMI 31 on admit. Encouraged lifestyle modifications. Complicates hospital course, care and prognosis. ? Current smoker: Encouraged cessation. Denied need for nicotine replacement therapy while inpatient. ? 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 ? Aortic stenosis: Outpatient management per cardiology. Total clinical time spent by myself addressing the patient's discharge needs: 35 minutes. Physical Exam Const alert, oriented x3 and no apparent distress Constitutional Narrative: Pleasant elderly male, obese, sitting comfortably in bed, conversing normally, no acute distress. General Appearance: cooperative and comfortable HEENT normocephalic, head/scalp atraumatic, hearing grossly normal bilaterally, nasal mucous membranes and turbinates normal and moist oral mucous membranes Eyes PERRL, EOMs intact bilaterally and conjunctivae normal Neck full ROM, no lymphadenopathy and supple Lymph Lymphatic: no lymphadenopathy noted Chest inspection of chest normal Resp Resp Narrative: Satting well on room air at rest, no increased work of breathing noted. Continues to have mild to moderate expiratory wheezes on exam. Otherwise good air movement throughout. No crackles noted. Cardio regular rate, regular rhythm, no murmurs and peripheral pulses 2+ throughout GI normal to inspection, nondistended, normoactive bowel sounds, soft to palpation, non-tender and non-distended Back/Spine normal ROM Extremity normal to inspection, full ROM and no pedal edema Skin no rashes or lesions noted Neuro no focal motor deficits and no sensory deficits noted Speech: speech normal Psych mental status grossly normal Weight / BMI Weight Weight: 100.6 kg Body Mass Index (BMI) 31.8 ABG / Lab / Microbiology Data 09/28/23 08:44 09/28/23 08:44 Laboratory: Laboratory Results - last 24 hr 09/28/23 08:44: WBC 14.6 H, RBC 3.78 L, Hgb 12.6 L, Hct 38.6 L, MCV 102.1 H, MCH 33.3 H, MCHC 32.6, RDW Std Deviation 56.0 H, RDW Coeff of Marcelle 14.9 H, Plt Count 190, MPV 9.6, Sodium 136, Potassium 4.1, Chloride 104, Carbon Dioxide 27.0, Anion Gap 5, BUN 40 H, Creatinine 1.11, Estim Creat Clear Calc 71.51, Est GFR (MDRD) Af Amer 84, Est GFR (MDRD) Non-Af 69, BUN/Creatinine Ratio 36.0 H, Glucose 148 H, Calcium 8.9 Microbiology: Microbiology 09/25/23 10:00 Mucosa - Nasopharyngeal SARS-CoV-2, Influenza & RSV (PCR) - Final D/C Instructions Discharge Diet: No restrictions Weight Bearing Status: Full weight bearing Meaningful Use Info Meaningful Use Diagnoses (Choose all that apply): None applicable Discharge Plan Admission Admit Date/Time: 09/25/23 12:38 Primary Reason for Your Visit: COPD exacerbation Attending Provider: Delvin Reyes Primary Care Provider: Wade Pdailla Consulting Providers: Ghassan Johnson; Chris Pete Instructions Additional Instructions / Restrictions: Complete antibiotic and steroid course as noted below. Take medications as prescribed below. Follow-up with your primary care doctor as needed. Discharge Orders/Prescriptions Prescriptions: New aspirin 81 mg Tablet,Delayed Release (Dr/Ec) 81 mg PO BREAKFAST Qty: 30 0RF hydrochlorothiazide 25 mg Tablet 25 mg PO DAILY Qty: 30 0RF azithromycin 250 mg Tablet 500 mg PO Q24 2 Days Qty: 4 0RF prednisone 20 mg Tablet 40 mg PO BREAKFAST 3 Days Qty: 6 0RF albuterol sulfate 90 mcg/actuation HFA aerosol inhaler 1 inh inhalation Q6H PRN (Reason: shortness of breath or wheezing) Qty: 8.5 2RF Continued calcium carbonate [Calcium 600] 600 mg calcium (1,500 mg) tablet 600 mg PO DAILY ascorbic acid (vitamin C) 1,000 mg tablet 1 g PO DAILY (DME) Ankle Brace Misc See Rx Instructions .ROUTE .MEDSUPPLY Qty: 1 0RF Rx Instructions: As directed (DME) Knee Support Brace Misc See Rx Instructions .ROUTE .MEDSUPPLY Qty: 1 0RF Rx Instructions: As directed cholecalciferol (vitamin D3) [Vitamin D3] 25 mcg (1,000 unit) tablet 25 mcg PO DAILY zinc sulfate 50 mg zinc (220 mg) capsule 50 mg PO DAILY PRN (Reason: SUPPLEMENT) hydrochlorothiazide 25 mg tablet 25 mg PO DAILY warfarin 2 mg tablet 6 mg PO .mondays and fridays Patient Comments: TAKE 3 TABLETS BY MOUTH TWICE A WEEK MONDAYS AND FRIDAYS ONLY rosuvastatin 20 mg tablet 20 mg PO DAILY Qty: 90 3RF gabapentin 300 mg capsule 300 mg PO BID 90 Days Qty: 180 1RF warfarin 4 mg tablet 4 mg PO 5XW Qty: 90 1RF Protocol: Dose Management Protocol Text: Patient Instructed to take: warfarin 4 mg (1 Tab) on [place], [place], , , FR, SA warfarin 4 mg (1.5 Tabs) on WE Rx Instructions: Coumadin 4mg daily except Sat and Fri benzonatate 100 mg capsule 100 mg PO BID-TID PRN (Reason: cough) Qty: 90 3RF Referrals / Follow Up: Wade Padilla MD [Primary Care Provider] - Disposition Disposition (needs filled in before D/C Order can be placed): Home, Self Care Charges/Coding Visit Charges Inpatient E&M: 80485 Disch Hosp >30min
== END 2023-09-28 17:55 | disposition home or self-care (01) | DRG 190 ==
LOC: ED 13:15 → PCU 13:43
PROVIDERS: Internal Medicine Interventional Cardiology; Admitting Provider Internal Medicine; Emergency Provider Emergency Medicine; PCP Internal Medicine; Visit Provider Hospitalist
DX: J44.1 Chronic obstructive pulmonary disease with (acute) exacerbation (principal); I21.A1 Myocardial infarction type 2; J44.0 Chronic obstructive pulmonary disease with (acute) lower respiratory infection; I10 Essential (primary) hypertension; I35.0 Nonrheumatic aortic (valve) stenosis; E78.5 Hyperlipidemia, unspecified; F17.210 Nicotine dependence, cigarettes, uncomplicated; I25.10 Atherosclerotic heart disease of native coronary artery without angina pectoris; G47.30 Sleep apnea, unspecified; J40 Bronchitis, not specified as acute or chronic; E66.9 Obesity, unspecified; Z68.31 Body mass index [BMI] 31.0-31.9, adult; Z11.52 Encounter for screening for COVID-19; Z79.01 Long term (current) use of 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s; Z79.82 Long term (current) use of aspirin; Z79.899 Other long term (current) drug therapy; Z86.16 Personal history of COVID-19
CPT/HCPCS: 36415; 70486; 71275; 80048; 83880; 84484; 85025; 85027; 85610; 87631; 93005; 93306; 93454; 94640; 97161; 99152; 99153; 99284; 99406; J7030; J7040; Q9967; A4216; C1769; C1894; J3490

== ENCOUNTER → 2023-10-04 | Outpatient (CLI) | payer MEDICARE, SELFPAY ==
--- OUTSIDE RECORDS SUMMARY | 2023-10-04 09:43 | XMS RPT_ITS | CCD ---
Author Name Unknown Address [address] [place] [address] Organization [facility] Care Team Providers Care Information Operator Name Role Phone Unknown, Pcp Unavailable Unavailable Carl Cruz Unavailable Unavailable Allergies Allergy Classification Reported Allergen(s) Allergy Type Date of Onset Reaction(s) Facility (1 source) Iodine Drug Allergy Unknown [facility] Medications Completed/Discontinued Medications Medication Drug Class(es) Dates [...] 14:56-0400 Body height 177.8 cm Pcp Unknown [facility] 03-17-2022 14:56-0400 Body temperature 97.88 [degF] Pcp Unknown [facility] 03-17-2022 14:56-0400 Diastolic blood pressure 59 mm[Hg] Pcp Unknown [facility] 03-17-2022 14:56-0400 Heart rate 74 /min Pcp Unknown [facility] 03-17-2022 14:56-0400 SaO2% (BldA) [Mass fraction] 94 % Pcp Unknown [facility] 03-17-2022 14:56-0400 Systolic blood pressure 111 mm[Hg] Pcp Unknown [facility] Encounters Encounter Date Encounter Type Care Provider Facility Start: 03-17-2022 End: 03-17-2022 Emergency department patient visit Carl Cruz [facility] Payers Date Payer Category Payer Unknown Social History Date Type Detail Facility [facility] Tobacco smoking consumption unknown [facility] Summary Purpose Family History No Family History [...] BE BASED ON THE PRIMARY CLINICAL RECORDS. [employer] [facility]. provides no warranty or guarantee of the accuracy or completeness of information in this document.
== END | disposition home or self-care (01) ==
LOC: LABSPEC 09:24
PROVIDERS: PCP Internal Medicine; Visit Provider Internal Medicine
DX: J06.9 Acute upper respiratory infection, unspecified (principal); R05.9 Cough, unspecified; Z11.52 Encounter for screening for COVID-19
CPT/HCPCS: 87634; 87635

== ENCOUNTER 2023-10-10 10:02 | Emergency (ER) | payer MEDICARE, SELFPAY ==
[2023-10-10 10:03] VITALS: BP 160/64; PULSE 57; RESP 16; TEMP 36.3; O2SAT 97; BMI 30.2
[2023-10-10 10:19] VITALS: BP 162/63; PULSE 62; RESP 16; O2SAT 95
--- NOTE | 2023-10-10 10:42 | EDS_ITS ---
HPI History of Present Illness Chief Complaint: General Illness Informant: patient Narrative Narrative: Patient returns with increasing diarrhea again. It took quite a bit of questioning. But for this patient his flu symptoms are diarrhea and malaise. This patient has been having a chronic cough since before Thanks. It still not better or gone. He was admitted for COPD exacerbation. He finally did quit smoking. But it sounds like this cough is not worsening and that is not why he is here now. Patient also was admitted not long ago for COPD exacerbation. He got out of the hospital on a Saturday. He states that they had a card game with multiple family members on Saturday. Saturday people started getting sick and Saturday he started getting sick about 8-9 days ago. His illness was diarrhea. He states he saw his doctor and was checked for influenza. He does not know which type he had. But he was started on Tamiflu. Things seem to be getting better. Tamiflu ended yesterday but the diarrhea is coming back. It is watery. It is not notably malodorous. But I do note that he has been on several doses of antibiotics even predating his hospital admission. Patient also has discussions regarding his upset with the fact that insurance will not cover oxygen that he would benefit from at times. He is also very upset that they will not cover a nebulizer since he does have significant COPD. [facility] Medical History Acute sinusitis, unspecified Arterial insufficiency BPH (benign prostatic hyperplasia) Bronchitis Carotid artery stenosis Chronic sinusitis Colon cancer screening Cough COVID-19 (07/2021) Dysuria Essential hypertension 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 reflux disease) Health care maintenance Hemorrhoids Hernia Hyperlipidemia Hypersomnia Hypotensive episode Intermittent claudication custodial current use of 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 Lymphadenopathy Nail avulsion, toe Nonrheumatic aortic (valve) stenosis with insufficiency Obesity Oral thrush Orthostasis LIZA (obstructive sleep apnea) Peripheral neuropathy Post-phlebitic syndrome Recurrent epistaxis Shortness of breath Sinusitis Skin lesion Upper respiratory tract infection Urinary frequency Home Medications calcium carbonate 600 mg calcium (1,500 mg) tablet (Calcium) 600 mg PO DAILY SUPPLEMENT 08/24/19 [History Last Taken 12/24/19 08:00] ascorbic acid (vitamin C) 1,000 mg tablet 1 g PO DAILY SUPPLEMENT 03/23/20 [History Last Taken Unknown] leg brace (Ankle Brace) #1 ea 02/09/21 [Rx Last Taken Unknown] leg brace (Knee Support Brace) #1 ea 02/09/21 [Rx Last Taken Unknown] rosuvastatin 20 mg tablet 20 mg PO DAILY CHOLESTEROL #90 tabs 11/05/22 [Rx Last Taken Unknown] gabapentin 300 mg capsule 300 mg PO BID NERVE PAIN 3 months #180 caps 05/10/23 [Rx Last Taken Unknown] warfarin 4 mg tablet 4 mg PO 5XW previous blood clots #90 tabs 09/16/23 [Rx Last Taken 09/24/23] benzonatate 100 mg capsule 100 mg PO BID-TID PRN cough #90 caps 09/19/23 [Rx Last Taken Unknown] cholecalciferol (vitamin D3) 25 mcg (1,000 unit) tablet (Vitamin D3) 25 mcg PO DAILY SUPPLEMENT 09/25/23 [History Last Taken Unknown] warfarin 2 mg tablet 6 mg PO .mondays and fridays previous blood clots 09/25/23 [History Last Taken Unknown] zinc sulfate 50 mg zinc (220 mg) capsule 50 mg PO DAILY PRN SUPPLEMENT 09/25/23 [History Last Taken Unknown] albuterol sulfate 90 mcg/actuation aerosol inhaler 1 inh inhalation Q6H PRN shortness of breath or wheezing #8.5 grams 09/28/23 [Rx Last Taken Unknown] aspirin 81 mg tablet,delayed release 81 mg PO BREAKFAST #30 tabs 09/28/23 [Rx Last Taken Unknown] hydrochlorothiazide 25 mg tablet 25 mg PO DAILY #30 tabs 09/28/23 [Rx Last Taken Unknown] Allergy/AdvReac Type Severity Reaction Status Date / Time Iodinated Contrast Media AdvReac Severe Other Verified 10/10/23 10:05 [Iodinated Contrast Media - IV Dye] oxycodone AdvReac Other Verified 10/10/23 10:05 Family History Father Lung cancer Uncle Cancer Grandfather Myocardial infarction Grandmother Myocardial infarction Mother Myocardial infarction, Onset Age: 90 Surgical History History of arthroscopy of left knee History of back surgery History of nasal polypectomy History of transurethral resection of prostate (~01/2020) History of umbilical hernia repair History of wisdom tooth extraction Status post hammer toe correction Social History Smoking Status: Former smoker Tobacco: How many years used: 50 second hand exposure: Yes quit status: considering quitting alcohol intake: current alcohol intake frequency: holidays/special occasions only substance use type: does not use caffeine: Yes Type: coffee Number of servings: 2 and tea Number of servings: 1 what type of physical activity do you participate in: none ROS ROS ED ROS Narrative A complete review of systems was performed and is negative except as documented in the history of present illness. Some specific details below. Constitutional: No recent fevers or chills. He does have some malaise but no myalgias now. EYE: No visual complaints or pain. ENT: No difficulty swallowing. No swelling. No pain. No GERD. CV: No chest pain or palpitations. Respiratory: See history of present illness. The symptoms are not worsening. No hemoptysis. He is on Coumadin already. GI: Please see history of present illness. : No frequency dysuria or hematuria. Musculoskeletal: No recent trauma. No myalgias at this time. Skin: No rash. Nondiaphoretic. Neuro: No weakness or numbness. He does have generalized weakness. Endocrine: No polyuria or polydipsia. EXAM Physical Exam Narrative Exam Narrative: CONSTITUTIONAL: Patient is nontoxic in appearance. The patient looks comfortable. HEENT: No notable trauma. Mucous membranes still do look moist. No sinus tenderness. No indication of pain with swallowing. EYES: No conjunctival injection. No proptosis. CARDIOVASCULAR: Regular rate. Regular rhythm. No notable murmur. No JVD. RESPIRATORY: No respiratory distress. Breathing is unlabored. But he does have some mild expiratory wheeze. He is due for treatment and this will be provided. Saturations are normal at 97% on room air showing no hypoxia. GASTROINTESTINAL: Not distended. Bowel sounds are normal. No tenderness. No guarding. No rebound. No palpable mass. No bruit. Overall very benign abdomen. GENITOURINARY: No tenderness over the bladder. No CVA tenderness. MUSCULOSKELETAL: Atraumatic. No peripheral edema. No cord. No tenderness along the deep venous system. No asymmetry. NEUROLOGICAL: Patient is alert and appropriate. No focal deficit noted. SKIN: No noted rashes. No diaphoresis. PSYCHIATRIC: Patient is calm. Mood is appropriate. Const Vital Signs: 10/10/23 10:03 10/10/23 10:19 10/10/23 11:11 Temperature 97.4 F L Temperature Source Temporal Pulse Rate 57 L 62 57 L Respiratory Rate 16 16 20 H Respiratory Pattern Blood Pressure 160/64 H 162/63 H 119/91 H Blood Pressure Mean 96 96 100 Pulse Ox 97 95 94 Oxygen Delivery Method Room Air Room Air Room Air 10/10/23 11:19 Temperature Temperature Source Pulse Rate 49 L Respiratory Rate 19 H Respiratory Pattern Tachypnea Blood Pressure Blood Pressure Mean Pulse Ox Oxygen Delivery Method MDM MDM MDM Narrative Medical decision making narrative: Patient CBC is overall normal. Platelets are minimally low but there is no bleeding. His INR is therapeutic at 2.8. Patient's electrolytes are overall normal. Glucose is minimally elevated 138. Patient's liver function test are normal. Patient his been here for a little less than 2 hours. No bowel movement yet. I did state that we would like to get C. difficile and other studies because he has been on at least a couple courses of antibiotics in the last few months. He is now saying that the stool does have somewhat of a strong odor. But I think the lack of an elevated white count leans against C. difficile is the likely source of this. But I still think it is important to get that checked. He states he thinks he can maybe give a stool sample here. But this patient is eating and drinking. He has normal saturations. His x-ray is unchanged. His labs look good. I do not think he needs to stay in the hospital. If he has further episodes of diarrhea I think is reasonable to try Imodium which she has not tried. I am hoping that his diarrhea will stop since he has done with Tamiflu and he is on day 8-9 of influenza. Patient was also walked in the department. His lowest saturation was 94%. Lab Data Attestation: I reviewed the patient's lab results. Labs: Laboratory Results - last 24 hr 10/10/23 10:30 WBC 5.9 RBC 3.97 L Hgb 13.1 Hct 40.4 MCV 101.8 H MCH 33.0 H MCHC 32.4 RDW Std Deviation 53.7 H RDW Coeff of Marcelle 14.1 Plt Count 146 L MPV 10.3 Immature Gran % (Auto) 0.300 Neut % (Auto) 59.9 Lymph % (Auto) 30.5 Ness % (Auto) 7.1 Eos % (Auto) 1.7 Baso % (Auto) 0.5 Absolute Neuts (auto) 3.5 Absolute Lymphs (auto) 1.80 Nucleated RBC % 0 Differential Comment SCANNED Reactive Lymphocytes 1+ PT 30.1 H INR 2.8 Sodium 133 L Potassium 3.8 Chloride 104 Carbon Dioxide 28.0 Anion Gap 1 L BUN 12 Creatinine 0.94 Estim Creat Clear Calc 82.38 Est GFR (MDRD) Af Amer 101 Est GFR (MDRD) Non-Af 83 BUN/Creatinine Ratio 12.7 Glucose 138 H Calcium 8.4 L Total Bilirubin 0.50 AST 24 ALT 33 Alkaline Phosphatase 54 Total Protein 6.8 Albumin 2.7 L Globulin 4.1 Albumin/Globulin Ratio 0.7 L Radiography Diagnostic Testing: Clinical Impression(s) from Imaging Studies Chest X-Ray 10/10/23 11:04 IMPRESSION: No acute cardiopulmonary abnormality. No interval change. Electronically Signed: Valdemar Luke MD at 11:21 EST , EKG Initial EKG: Comments: My independent interpretation of the patient's EKG shows normal sinus rhythm with bradycardic rate at 55. No ectopy. No acute ST elevation or depression. IN interval, QRS duration and QTc are all normal. Discharge Plan Triage Chief Complaint: General Illness ED Provider: Juan Bolanos Dx/Rx/DC Orders Clinical Impression: History of COPD, History of influenza, Diarrhea, Medication adverse effect Instructions: Treating Diarrhea Prescriptions: No Action calcium carbonate [Calcium 600] 600 mg calcium (1,500 mg) tablet 600 mg PO DAILY ascorbic acid (vitamin C) 1,000 mg tablet 1 g PO DAILY (DME) Ankle Brace Misc See Rx Instructions .ROUTE .MEDSUPPLY Qty: 1 0RF Rx Instructions: As directed (DME) Knee Support Brace Misc See Rx Instructions .ROUTE .MEDSUPPLY Qty: 1 0RF Rx Instructions: As directed cholecalciferol (vitamin D3) [Vitamin D3] 25 mcg (1,000 unit) tablet 25 mcg PO DAILY zinc sulfate 50 mg zinc (220 mg) capsule 50 mg PO DAILY PRN (Reason: SUPPLEMENT) warfarin 2 mg tablet 6 mg PO .mondays and fridays Patient Comments: TAKE 3 TABLETS BY MOUTH TWICE A WEEK MONDAYS AND FRIDAYS ONLY aspirin 81 mg Tablet,Delayed Release (Dr/Ec) 81 mg PO BREAKFAST Qty: 30 0RF hydrochlorothiazide 25 mg Tablet 25 mg PO DAILY Qty: 30 0RF albuterol sulfate 90 mcg/actuation HFA aerosol inhaler 1 inh inhalation Q6H PRN (Reason: shortness of breath or wheezing) Qty: 8.5 2RF rosuvastatin 20 mg tablet 20 mg PO DAILY Qty: 90 3RF gabapentin 300 mg capsule 300 mg PO BID 90 Days Qty: 180 1RF warfarin 4 mg tablet 4 mg PO 5XW Qty: 90 1RF Protocol: Dose Management Protocol Text: Patient Instructed to take: warfarin 4 mg (1 Tab) on [place], , , , FR, SA warfarin 4 mg (1.5 Tabs) on WE Rx Instructions: Coumadin 4mg daily except Sat and Fri benzonatate 100 mg capsule 100 mg PO BID-TID PRN (Reason: cough) Qty: 90 3RF Primary Care Provider: Wade Padilla Referrals: Wade Padilla MD [Primary Care Provider] - 3-5 Days if not improving Disposition Disposition: Home, Self Care
[2023-10-10] MEDS: 0.9% Normal Saline (1000mL) 1,000 ML 1000 ML IV (10:48)
[2023-10-10 11:01] LABS: Absolute Neutrophil Count 3.5 X10^3/uL (2.0-7.7); Basophil# 0.03 X10^3/uL; Basophil% 0.5 % (0-1); Eosinophils% 1.7 % (0-5); Hematocrit 40.4 % (40-54); Hemoglobin 13.1 g/dL (13.0-16.5); Lymphocyte % 30.5 % (19-41); Mean Corp Hgb Conc 32.4 g/dL (32-36); Mean Corpuscular Volume 101.8 fL (80-94); Mean Platelet Vol. 10.3 fl (6.2-12.0); Monocyte# 0.42 X10^3/uL; Monocyte% 7.1 % (0-10); NRBC Flagged by Analyzer 0 % (0-5); Neutrophil # 3.53 X10^3/uL (2.7-7.7); Neutrophil % 59.9 % (47-70); POSITIVE MORPHOLOGY YES; Platelet Count 146 K/mm3 (150-450); RBC Distribution Width CV 14.1 % (11.6-14.6); RBC Distribution Width SD 53.7 fl (35.1-43.9); Red Blood Count 3.97 M/mm3 (4.6-6.2); White Blood Count 5.9 K/mm3 (4.4-11.0)
--- NOTE | 2023-10-10 11:04 | RAD_ITS ---
EXAM: XR CHEST, 2 VIEWS CLINICAL INDICATION: cough TECHNIQUE: Frontal and lateral views of the chest. COMPARISON: XR Chest dated 09/18/2023 FINDINGS: LUNGS AND PLEURAL SPACES: Linear scarring/atelectasis projecting over the right hilum. Lungs are otherwise clear. HEART: Normal heart size. MEDIASTINUM: No mediastinal or hilar mass. BONES/JOINTS: No acute abnormality. RAD/Chest PA and Lateral IMPRESSION: No acute cardiopulmonary abnormality. No interval change. Electronically Signed: Valdemar Luke MD at 11:21 EST ,
[2023-10-10 11:10] LABS: Differential Indicated SCAN CRITERIA MET
[2023-10-10 11:11] VITALS: BP 119/91; PULSE 57; RESP 20; O2SAT 94
[2023-10-10 11:16] LABS: ALB/GLOB Ratio 0.7 RATIO (0.9-2.4); AST(SGOT) 24 U/L (15-37); Alanine Aminotransfer ALT/SGPT 33 U/L (16-61); Albumin, Serum 2.7 g/dL (3.2-5.0); Alkaline Phosphatase 54 U/L (45-117); Anion Gap 1 (5-15); BUN 12 mg/dL (7-18); BUN/Creat Ratio 12.7 RATIO (10-20); Calcium,Total 8.4 mg/dL (8.5-10.1); Chloride 104 mmol/L (98-107); Creatinine, Serum 0.94 mg/dL (0.70-1.30); EST Glomerular Filtration Rate 83 mL/min (>60); Est Glom Filt Rate - Afr Amer 101 mL/min (>60); Estimated Creatinine Clearance 82.38 ml/min; Globulin 4.1 g/dL (2.2-4.2); Glucose 138 mg/dL (74-106); Potassium 3.8 mmol/L (3.5-5.1); Protein, Total 6.8 g/dL (6.4-8.2); Sodium Level 133 mmol/L (136-145)
[2023-10-10 11:17] LABS: International Normalized Ratio 2.8; Prothrombin Time (Protime)PT. 30.1 SECONDS (11.7-14.9)
[2023-10-10] MEDS: Ipratropium/Albuterol Sulfate 3 ML AMPUL.NEB INHALATION (11:18)
[2023-10-10 11:19] VITALS: PULSE 49; RESP 19
[2023-10-10 11:40] LABS: Differential Comment SCANNED; Reactive Lymphocyte 1+
[2023-10-10 12:04] VITALS: O2SAT 94
== END 2023-10-10 12:57 | disposition home or self-care (01) ==
PROVIDERS: Emergency Provider Emergency Medicine; PCP Internal Medicine; Visit Provider Emergency Medicine
DX: K52.1 Toxic gastroenteritis and colitis (principal); J44.9 Chronic obstructive pulmonary disease, unspecified; T37.5X5A Adverse effect of antiviral drugs, initial encounter; R73.9 Hyperglycemia, unspecified; N40.0 Benign prostatic hyperplasia without lower urinary tract symptoms; I10 Essential (primary) hypertension; K21.9 Gastro-esophageal reflux disease without esophagitis; E78.5 Hyperlipidemia, unspecified; Z79.82 Long term (current) use of aspirin; Z79.01 Long term (current) use of 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s; Z79.899 Other long term (current) drug therapy; Z87.891 Personal history of nicotine dependence
CPT/HCPCS: 71046; 80053; 85025; 85610; 93005; 94640; 96360; 96361; 99283; J7030; A4216

== ENCOUNTER 2023-10-11 10:24 | Emergency (ER) | payer MEDICARE, SELFPAY ==
[2023-10-11] VITALS (7 sets, daily range): BP systolic 133–147; BP diastolic 52–80; PULSE 59–65; RESP 16–22; TEMP 36.6; O2SAT 93–100
--- NOTE | 2023-10-11 11:30 | RAD_ITS ---
STUDY: X-RAY CHEST REASON FOR EXAM: Male, 72 years old. Cough. TECHNIQUE: Single AP portable view of the chest. COMPARISON: October 10, 2023. FINDINGS: The lungs are clear and expanded. There is no demonstrated pleural abnormality. Normal size heart. Normal mediastinum and cher. Normal visualized pulmonary arteries. Normal visualized aortic arch and descending thoracic aorta. Normal visualized thoracic spine. Normal visualized ribs, clavicles, and shoulders. There is no demonstrated abnormality of the visualized soft tissue structures of the upper abdomen. RAD/Chest 1 View (Portable) IMPRESSION: Normal x-ray examination of the chest. Electronically Signed: Rashid Lehman MD at 11:54 EST ,
--- NOTE | 2023-10-11 11:30 | EDS_ITS ---
HPI <QUANG Muhammad - Last Filed: 10/11/23 12:49> History of Present Illness Chief Complaint: Chest Pain Narrative Narrative: Patient is a 72-year-old male with history of past tobacco use, COPD, history of blood clots on Coumadin GERD, BPH who presents to the emergency department for multiple complaints. Patient was seen here yesterday for malaise, diarrhea. Once patient was here, he was unable to provide a stool sample yesterday. Patient states he did go home, and took stool from the toilet and brought it to the lab however they would not take it because there is no order, he then returned to the ER. Patient states he has worsening cough and congestion is more short of breath. He had difficulty sleeping last evening because of his cough. Patient states he does have intermittent chest pain however this has been ongoing with the cough. He denies any significant fever or chills. He states that his diarrhea is black however he did use Pepto-Bismol 2 to 3 days ago. On a side note. Patient is overall frustrated. He is not happy with his primary care provider, there is an issue with him not being able to have a nebulizer machine that is covered. I believe that this problem has been ongoing. Patient did mention this in my examination today. He also mention this yesterday as well. [facility] <QUANG Muhammad - Last Filed: 10/11/23 12:49> [facility] Medical History Acute sinusitis, unspecified Arterial insufficiency BPH (benign prostatic hyperplasia) Bronchitis Carotid artery stenosis Chronic sinusitis Colon cancer screening Cough COVID-19 (07/2021) Dysuria Essential hypertension 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 reflux disease) Health care maintenance Hemorrhoids Hernia Hyperlipidemia Hypersomnia Hypotensive episode Intermittent claudication prison current use of 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 Lymphadenopathy Nail avulsion, toe Nonrheumatic aortic (valve) stenosis with insufficiency Obesity Oral thrush Orthostasis LIZA (obstructive sleep apnea) Peripheral neuropathy Post-phlebitic syndrome Recurrent epistaxis Shortness of breath Sinusitis Skin lesion Upper respiratory tract infection Urinary frequency Home Medications calcium carbonate 600 mg calcium (1,500 mg) tablet (Calcium) 600 mg PO DAILY SUPPLEMENT 08/24/19 [History Last Taken 12/24/19 08:00] ascorbic acid (vitamin C) 1,000 mg tablet 1 g PO DAILY SUPPLEMENT 03/23/20 [History Last Taken Unknown] leg brace (Ankle Brace) #1 ea 02/09/21 [Rx Last Taken Unknown] leg brace (Knee Support Brace) #1 ea 02/09/21 [Rx Last Taken Unknown] rosuvastatin 20 mg tablet 20 mg PO DAILY CHOLESTEROL #90 tabs 11/05/22 [Rx Last Taken Unknown] warfarin 4 mg tablet 4 mg PO 5XW previous blood clots #90 tabs 09/16/23 [Rx Last Taken 09/24/23] benzonatate 100 mg capsule 100 mg PO BID-TID PRN cough #90 caps 09/19/23 [Rx Last Taken Unknown] cholecalciferol (vitamin D3) 25 mcg (1,000 unit) tablet (Vitamin D3) 25 mcg PO DAILY SUPPLEMENT 09/25/23 [History Last Taken Unknown] warfarin 2 mg tablet 6 mg PO .mondays and fridays previous blood clots 09/25/23 [History Last Taken Unknown] zinc sulfate 50 mg zinc (220 mg) capsule 50 mg PO DAILY PRN SUPPLEMENT 09/25/23 [History Last Taken Unknown] albuterol sulfate 90 mcg/actuation aerosol inhaler 1 inh inhalation Q6H PRN shortness of breath or wheezing #8.5 grams 09/28/23 [Rx Last Taken Unknown] aspirin 81 mg tablet,delayed release 81 mg PO BREAKFAST #30 tabs 09/28/23 [Rx Last Taken Unknown] hydrochlorothiazide 25 mg tablet 25 mg PO DAILY #30 tabs 09/28/23 [Rx Last Taken Unknown] budesonide 160 mcg-glycopyr 9 mcg-formot 4.8 mcg/actuation HFA inhaler (Breztri Aerosphere) inh inhalation 10/11/23 [History Last Taken Unknown] gabapentin 300 mg capsule 300 mg PO DAILY NERVE PAIN 10/11/23 [History Last Taken Unknown] ipratropium 0.5 mg-albuterol 3 mg (2.5 mg base)/3 mL nebulization soln 3 ml inhalation Q6H PRN shortness of breath or wheezing #90 mL 10/11/23 [Rx Last Taken Unknown] prednisone 50 mg tablet 50 mg PO DAILY #5 tabs 10/11/23 [Rx Last Taken Unknown] Allergy/AdvReac Type Severity Reaction Status Date / Time Iodinated Contrast Media AdvReac Severe Other Verified 10/10/23 10:05 [Iodinated Contrast Media - IV Dye] oxycodone AdvReac Other Verified 10/10/23 10:05 Family History Father Lung cancer Uncle Cancer Grandfather Myocardial infarction Grandmother Myocardial infarction Mother Myocardial infarction, Onset Age: 90 Surgical History History of arthroscopy of left knee History of back surgery History of nasal polypectomy History of transurethral resection of prostate (~01/2020) History of umbilical hernia repair History of wisdom tooth extraction Status post hammer toe correction Social History Smoking Status: Former smoker Tobacco: How many years used: 50 second hand exposure: Yes quit status: considering quitting alcohol intake: current alcohol intake frequency: holidays/special occasions only substance use type: does not use caffeine: Yes Type: coffee Number of servings: 2 and tea Number of servings: 1 what type of physical activity do you participate in: none ROS <QUANG Muhammad - Last Filed: 10/11/23 12:49> ROS ED ROS Narrative Constitutional: Negative for fever, chills, weight loss. Positive for weakness Eyes: Negative for vision loss, vision change, double vision ENT: Negative for any sore throat, ear pain, congestion Cardiovascular: Negative for any palpitations. Positive chest pain, tightness Respiratory: Negative for any hemoptysis.positive for cough, sputum production, dyspnea, dyspnea on exertion, orthopnea Gastrointestinal: Negative for any abdominal pain, nausea, vomiting, diarrhea, constipation, blood in vomit. Positive for dark stools. : Negative for any urinary frequency, dysuria, retention, blood in urine Muscle skeletal: Negative for any myalgias, arthralgias, neck pain, back pain Neurological: Negative for any headache, syncope, paresthesias, dizziness Skin: Negative for any rashes, lumps, itching, abrasions, lacerations Psychiatric: Negative for any depression, anxiety, stress, suicidal ideation, homicidal ideation Hematologic: Negative for any easy bruising, excessive bruising, easy bleeding Allergies: Negative for any eczema, hives, rash EXAM <QUANG Muhammad - Last Filed: 10/11/23 12:49> Physical Exam Narrative Exam Narrative: Vital signs reviewed. HEET: Head normocephalic atraumatic, TMs clear bilaterally. Posterior pharynx is clear, moist mucous membranes. Nares clear bilaterally. Neck: Supple with no lymphadenopathy or tenderness. No signs of meningismus. Cardiac: Regular rate and rhythm no murmurs gallops or rubs, equal peripheral pulses bilaterally. Respiratory: Patient does have expiratory wheeze to the right lower, left lower lung bases.. No chest tenderness. Abdomen: Soft, nontender, nondistended. No abdominal bruit or pulsatile masses. No hepatosplenomegaly Extremities: No peripheral edema, no signs of gross trauma or deformity. Active full range of motion of all extremities. Neuro: Cranial nerves II through XII intact, no focal neurological deficits. Skin: Clean dry and intact with no rash, purpura, petechiae, vesicles or pustules. Backs/flank: No CVA tenderness, no midline spinal tenderness, no deformity. Psych: Normal mood and affect. No SI, HI or acute psychosis. Rectal: Rectal exam was completed with a female nurse dinkey locomotive engineer Nuvia. There was black stool around the anus, soft stool in the rectal vault. There is no hemorrhage, no acute or chronic hemorrhoids. Const Vital Signs: 10/11/23 10:24 10/11/23 10:52 10/11/23 10:55 Temperature 97.8 F Temperature Source Temporal Pulse Rate 65 61 Respiratory Rate 22 H 20 H Respiratory Pattern Normal Blood Pressure 143/70 H 133/70 H Blood Pressure Mean 94 91 Pulse Ox 100 93 Oxygen Delivery Method Room Air 10/11/23 11:24 10/11/23 11:40 10/11/23 11:29 Temperature Temperature Source Pulse Rate 59 L 59 L Respiratory Rate 18 16 Respiratory Pattern Blood Pressure 147/52 H Blood Pressure Mean 83 Pulse Ox 95 Oxygen Delivery Method Room Air Room Air 10/11/23 12:00 Temperature Temperature Source Pulse Rate 60 Respiratory Rate 22 H Respiratory Pattern Blood Pressure 133/80 H Blood Pressure Mean 97 Pulse Ox 94 Oxygen Delivery Method Room Air <Dr. Obinna Coles MD - Last Filed: 10/11/23 12:09> Physical Exam Const Vital Signs: 10/11/23 10:24 10/11/23 10:52 10/11/23 10:55 Temperature 97.8 F Temperature Source Temporal Pulse Rate 65 61 Respiratory Rate 22 H 20 H Respiratory Pattern Normal Blood Pressure 143/70 H 133/70 H Blood Pressure Mean 94 91 Pulse Ox 100 93 Oxygen Delivery Method Room Air 10/11/23 11:24 10/11/23 11:40 10/11/23 11:29 Temperature Temperature Source Pulse Rate 59 L 59 L Respiratory Rate 18 16 Respiratory Pattern Blood Pressure 147/52 H Blood Pressure Mean 83 Pulse Ox 95 Oxygen Delivery Method Room Air Room Air 10/11/23 12:00 Temperature Temperature Source Pulse Rate 60 Respiratory Rate 22 H Respiratory Pattern Blood Pressure 133/80 H Blood Pressure Mean 97 Pulse Ox 94 Oxygen Delivery Method Room Air MDM <QUANG Muhammad - Last Filed: 10/11/23 12:49> [facility] Lab Data Labs: Laboratory Results - last 24 hr 10/11/23 10:49 WBC 5.9 RBC 3.54 L Hgb 11.7 L Hct 35.3 L MCV 99.7 H MCH 33.1 H MCHC 33.1 RDW Std Deviation 52.0 H RDW Coeff of Marcelle 14.0 Plt Count 162 MPV 10.1 Immature Gran % (Auto) 0.300 Neut % (Auto) 64.2 Lymph % (Auto) 25.8 [place] % (Auto) 8.0 Eos % (Auto) 1.4 Baso % (Auto) 0.3 Absolute Neuts (auto) 3.8 Absolute Lymphs (auto) 1.51 Nucleated RBC % 0 PT 35.7 H INR 3.5 Sodium 138 Potassium 4.3 Chloride 107 Carbon Dioxide 28.0 Anion Gap 3 L BUN 29 H Creatinine 0.83 Est GFR (MDRD) Af Amer 117 Est GFR (MDRD) Non-Af 97 BUN/Creatinine Ratio 34.9 H Glucose 106 Calcium 9.5 Total Bilirubin 0.30 AST 18 ALT 30 Alkaline Phosphatase 50 Troponin I High Sens 12 Total Protein 6.8 Albumin 2.7 L Globulin 4.1 Albumin/Globulin Ratio 0.7 L Radiography Diagnostic Testing: Clinical Impression(s) from Imaging Studies Chest X-Ray 10/11/23 11:30 IMPRESSION: Normal x-ray examination of the chest. Electronically Signed: Rashid Lehman MD at 11:54 EST , EKG Normal sinus rhythm: Attestation: I personally reviewed and interpreted this EKG as follows: Interpretation: Sinus Rhythm Comments: Normal sinus rhythm, rate of 61 bpm, GA interval 132 ms, QRS duration 82 ms, no acute ST elevation, no acute infarct noted. Treatment and Re-Evaluation :: Patient appears to be in no obvious distress, vital signs are stable. Patient is frustrated however patient presents to the emerged part with dark tarry stools, as well as worsening shortness of breath. Differential diagnosis in cludes GI bleed secondary to Coumadin, C. difficile, viral gastritis, COPD exacerbation, ACS or KS. Patient was given full cardiac workup as well as a stool study and fecal stool occult. Patient will be given breathing treatment as well as steroids. Chest x-ray to be completed to rule out a pneumonia. Patient will receive some laboratory values CBC to rule out leukocytosis, electrolytes, PT/INR to ensure that he is therapeutic, patient be reevaluated. All radiologic examinations were read, reviewed by the emergency department attending. From these reads, a plan of care will be put in place. Patient responded well to the breathing treatments patient's stool occult was negative. Chest x-ray inter by ER physician shows no acute cardiopulmonary process. Laboratory values showed slight anemia with hemoglobin 11.7, PT/INR showed a INR 3.5, patient is on Coumadin. Chemistries were unremarkable, troponin was negative. At this time, is no evidence of ACS or KS. Patient did have stool sent to the lab, this does take 24 to 48 hours. After the breathing treatments, he did feel better and had better ease of breathing. Patient was ambulated around the department, was able to maintain his saturation 92% and felt well. Patient will be given 5 days of prednisone, as well as DuoNeb nebulizers for home. He is happy with the plan of care, he was given strict return precaution. All questions were answered, patient stable for discharge. <Dr. Obinna Coles MD - Last Filed: 10/11/23 12:09> [facility] Narrative Medical decision making narrative: I have personally performed a face to face assessment of the patient and have reviewed the ISABEL Note. I performed a substantive portion of the visit including all aspects of the following. My olivier findings include: History is 70-year-old male states he is having shortness of breath secondary to COPD he is also recently had black stool, recent hospitalization. And diarrhea. Is never had a GI bleed. He is on Coumadin. Denies any fever or hemoptysis. Said that the diarrhea has resolved. Exam is [ pulse ox is 93% on room air no signs hypoxia.well-appearing 72-year-old male. Vital signs are stable. He is afebrile. He does not look septic or toxic. H EENT exam unremarkable. Neck nontender. Lungs scattered expiratory wheezes no rales or rhonchi. He was already treated with aerosols today. Heart regular rhythm rate about 60 no murmur. Chest wall nontender. Abdomen soft nontender. Moving all 4 extremities. Nontender no edema. Neurologically is awake alert. Answer questions following commands.] Medical Decision Making [72-year-old short of breath screening labs and aerosols.] Other additions or changes: [None] History & Record Review Discussion w/independent historian: Patient Additional record(s) reviewed:: Prior inpatient record, Prior outpatient record, Prior ED visit and Prior labs Lab Data Attestation: I reviewed the patient's lab results. Lab results narrative: CBC shows a white count of 5. H&H 11.7 and 35 which is baseline anemia. Platelets 162. Patient is on Coumadin his INR is 3.5. Electrolytes show a gap of 3. BUN 29 creatinine 0.8. Liver enzymes are unremarkable. Chest x-ray chronic changes. Labs: Laboratory Results - last 24 hr 10/11/23 10:49 WBC 5.9 RBC 3.54 L Hgb 11.7 L Hct 35.3 L MCV 99.7 H MCH 33.1 H MCHC 33.1 RDW Std Deviation 52.0 H RDW Coeff of Marcelle 14.0 Plt Count 162 MPV 10.1 Immature Gran % (Auto) 0.300 Neut % (Auto) 64.2 Lymph % (Auto) 25.8 [place] % (Auto) 8.0 Eos % (Auto) 1.4 Baso % (Auto) 0.3 Absolute Neuts (auto) 3.8 Absolute Lymphs (auto) 1.51 Nucleated RBC % 0 PT 35.7 H INR 3.5 Sodium 138 Potassium 4.3 Chloride 107 Carbon Dioxide 28.0 Anion Gap 3 L BUN 29 H Creatinine 0.83 Est GFR (MDRD) Af Amer 117 Est GFR (MDRD) Non-Af 97 BUN/Creatinine Ratio 34.9 H Glucose 106 Calcium 9.5 Total Bilirubin 0.30 AST 18 ALT 30 Alkaline Phosphatase 50 Troponin I High Sens 12 Total Protein 6.8 Albumin 2.7 L Globulin 4.1 Albumin/Globulin Ratio 0.7 L Radiography Chest X-Ray - ED: 1 View, Read by ED Physician, Read by Radiologist, Normal, Heart, Lungs, Mediastinum, Bony Structures, No Acute Disease and Chronic Changes Diagnostic Testing: Clinical Impression(s) from Imaging Studies Chest X-Ray 10/11/23 11:30 IMPRESSION: Normal x-ray examination of the chest. Electronically Signed: Rashid Lehman MD at 11:54 EST , Discharge Plan Triage Chief Complaint: Chest Pain ED Midlevel Provider: Howard Dumont ED Provider: Obinna Coles Dx/Rx/DC Orders Clinical Impression: Diarrhea, Acute exacerbation of chronic obstructive pulmonary disease Instructions: Asthma and COPD, ED Diarrhea, Unknown Cause Prescriptions: New ipratropium-albuterol 0.5 mg-3 mg(2.5 mg base)/3 mL solution for nebulization 3 ml inhalation Q6H PRN (Reason: shortness of breath or wheezing) Qty: 90 0RF prednisone 50 mg tablet 50 mg PO DAILY Qty: 5 0RF No Action calcium carbonate [Calcium 600] 600 mg calcium (1,500 mg) tablet 600 mg PO DAILY ascorbic acid (vitamin C) 1,000 mg tablet 1 g PO DAILY (DME) Ankle Brace Misc See Rx Instructions .ROUTE .MEDSUPPLY Qty: 1 0RF Rx Instructions: As directed (DME) Knee Support Brace Misc See Rx Instructions .ROUTE .MEDSUPPLY Qty: 1 0RF Rx Instructions: As directed cholecalciferol (vitamin D3) [Vitamin D3] 25 mcg (1,000 unit) tablet 25 mcg PO DAILY zinc sulfate 50 mg zinc (220 mg) capsule 50 mg PO DAILY PRN (Reason: SUPPLEMENT) Patient Comments: pt states takes zinc periodically warfarin 2 mg tablet 6 mg PO .mondays and fridays Patient Comments: TAKE 3 TABLETS BY MOUTH TWICE A WEEK MONDAYS AND FRIDAYS ONLY aspirin 81 mg Tablet,Delayed Release (Dr/Ec) 81 mg PO BREAKFAST Qty: 30 0RF hydrochlorothiazide 25 mg Tablet 25 mg PO DAILY Qty: 30 0RF albuterol sulfate 90 mcg/actuation HFA aerosol inhaler 1 inh inhalation Q6H PRN (Reason: shortness of breath or wheezing) Qty: 8.5 2RF gabapentin 300 mg capsule 300 mg PO DAILY Patient Comments: pt states supposed to take BID but only takes once a day rosuvastatin 20 mg tablet 20 mg PO DAILY Qty: 90 3RF warfarin 4 mg tablet 4 mg PO 5XW Qty: 90 1RF Protocol: Dose Management Protocol Text: Patient Instructed to take: warfarin 4 mg (1 Tab) on , , , , , SA warfarin 4 mg (1.5 Tabs) on WE Rx Instructions: Coumadin 4mg daily except Sat and Sat benzonatate 100 mg capsule 100 mg PO BID-TID PRN (Reason: cough) Qty: 90 3RF Primary Care Provider: Wade Padilla Referrals: Wade Padilla MD [Primary Care Provider] - Activity Restrictions/Additional Instructions: Please follow-up outpatient. Take the prednisone until finished. Disposition Disposition: Home, Self Care
[2023-10-11] MEDS: Albuterol 2.5 MG/3 ML VIAL.NEB. INHALATION (11:38)
[2023-10-11] MEDS: Ipratropium/Albuterol Sulfate 3 ML AMPUL.NEB INHALATION (11:38)
[2023-10-11 11:41] LABS: Absolute Lymphocyte Count 1.51 X10^3/uL (0.83-4.51); Absolute Neutrophil Count 3.8 X10^3/uL (2.0-7.7); Basophil# 0.02 X10^3/uL; Basophil% 0.3 % (0-1); Eosinophil# 0.08 X10^3/uL; Eosinophils% 1.4 % (0-5); Hematocrit 35.3 % (40-54); Hemoglobin 11.7 g/dL (13.0-16.5); Lymphocyte # 1.51 X10^3/ul (0.83-4.51); Lymphocyte % 25.8 % (19-41); Mean Corp Hgb Conc 33.1 g/dL (32-36); Mean Corpuscular Hgb 33.1 pg (27.0-32.0); Mean Corpuscular Volume 99.7 fL (80-94); Mean Platelet Vol. 10.1 fl (6.2-12.0); Monocyte# 0.47 X10^3/uL; NRBC Flagged by Analyzer 0 % (0-5); Neutrophil # 3.75 X10^3/uL (2.7-7.7); Neutrophil % 64.2 % (47-70); Platelet Count 162 K/mm3 (150-450); Red Blood Count 3.54 M/mm3 (4.6-6.2); White Blood Count 5.9 K/mm3 (4.4-11.0)
[2023-10-11] MEDS: predniSONE 20 MG Tablet 60 MG PO (11:53)
[2023-10-11 11:54] LABS: International Normalized Ratio 3.5; Prothrombin Time (Protime)PT. 35.7 SECONDS (11.7-14.9)
[2023-10-11 11:55] LABS: ALB/GLOB Ratio 0.7 RATIO (0.9-2.4); AST(SGOT) 18 U/L (15-37); Alanine Aminotransfer ALT/SGPT 30 U/L (16-61); Albumin, Serum 2.7 g/dL (3.2-5.0); Alkaline Phosphatase 50 U/L (45-117); Anion Gap 3 (5-15); BUN 29 mg/dL (7-18); BUN/Creat Ratio 34.9 RATIO (10-20); Calcium,Total 9.5 mg/dL (8.5-10.1); Chloride 107 mmol/L (98-107); Creatinine, Serum 0.83 mg/dL (0.70-1.30); EST Glomerular Filtration Rate 97 mL/min (>60); Est Glom Filt Rate - Afr Amer 117 mL/min (>60); Globulin 4.1 g/dL (2.2-4.2); Glucose 106 mg/dL (74-106); Potassium 4.3 mmol/L (3.5-5.1); Protein, Total 6.8 g/dL (6.4-8.2); Sodium Level 138 mmol/L (136-145); Troponin-I HS 12 pg/mL (3.0-78.0)
--- OUTSIDE RECORDS SUMMARY | 2023-10-11 15:29 | XMS RPT_ITS | CCD ---
Author Name Unknown Address [address] [place] [address] Organization [facility] Care Team Providers Care Community Chest Officer Name Role Phone Unknown, Pcp Unavailable Unavailable Carl Cruz Unavailable Unavailable Allergies Allergy Classification Reported Allergen(s) Allergy Type Date of Onset Reaction(s) Facility (1 source) Iodine Drug Allergy Unknown [facility] Medications Completed/Discontinued Medications Medication Drug [...] 14:56-0400 Body height 177.8 cm Pcp Unknown [facility] 03-17-2022 14:56-0400 Body temperature 97.88 [degF] Pcp Unknown [facility] 03-17-2022 14:56-0400 Diastolic blood pressure 59 mm[Hg] Pcp Unknown [facility] 03-17-2022 14:56-0400 Heart rate 74 /min Pcp Unknown [facility] 03-17-2022 14:56-0400 SaO2% (BldA) [Mass fraction] 94 % Pcp Unknown [facility] 03-17-2022 14:56-0400 Systolic blood pressure 111 mm[Hg] Pcp Unknown [facility] Encounters Encounter Date Encounter Type Care Provider Facility Start: 03-17-2022 End: 03-17-2022 Emergency department patient visit Carl Cruz [facility] Payers Date Payer Category Payer Unknown Social History Date Type Detail Facility [facility] Tobacco smoking consumption unknown [facility] Summary Purpose Family History No [...] BE BASED ON THE PRIMARY CLINICAL RECORDS. [facility]. provides no warranty or guarantee of the accuracy or completeness of information in this document.
== END 2023-10-11 13:09 | disposition home or self-care (01) ==
PROVIDERS: Nurse Practitioner; Emergency Provider Emergency Medicine; PCP Internal Medicine; Visit Provider Emergency Medicine
DX: J44.1 Chronic obstructive pulmonary disease with (acute) exacerbation (principal); R19.7 Diarrhea, unspecified; Z79.01 Long term (current) use of 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s; Z79.82 Long term (current) use of aspirin; Z79.899 Other long term (current) drug therapy; Z86.718 Personal history of other venous thrombosis and embolism; Z87.891 Personal history of nicotine dependence
CPT/HCPCS: 99285; 71045; 80053; 82274; 84484; 85025; 85610; 87506; 93005; 94640; A4216

== ENCOUNTER 2023-10-14 08:06 | Outpatient (RCR) | payer MEDICARE, SELFPAY ==
[2023-10-10 00:37] VITALS: BMI 30.4
[2023-10-14 08:32] LABS: Prothrombin Time (Protime)PT. 44.2 SECONDS (11.7-14.9)
[2023-10-14 08:36] LABS: International Normalized Ratio 4.6
== END 2023-11-07 18:00 | disposition home or self-care (01) ==
LOC: LAB 08:06
PROVIDERS: Family Provider Internal Medicine; PCP Internal Medicine; Referring Provider Internal Medicine; Visit Provider Internal Medicine
DX: Z79.01 Long term (current) use of 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s (principal)
CPT/HCPCS: 36415; 85610

== ENCOUNTER 2023-10-14 08:23 | Inpatient (IN) | payer MEDICARE, SELFPAY ==
[2023-10-14] VITALS (7 sets, daily range): BP systolic 124–166; BP diastolic 55–78; PULSE 62–75; RESP 16–20; TEMP 36.4–37.6; O2SAT 92–99; BMI 31.6; BMI 29.5
--- NOTE | 2023-10-14 08:57 | CT_ITS ---
STUDY: CT ABDOMEN AND PELVIS WITHOUT CONTRAST REASON FOR EXAM: Male, 72 years old. Abdominal pain RADIATION DOSAGE (If Supplied By Facility): CTDIvol = ( 17.38 ) mGy, DLP = ( 686.60 ) mGycm TECHNIQUE: Transaxial images were obtained from the dome of the diaphragm to the symphysis pubis without oral contrast, and without intravenous contrast. Sagittal and coronal images were reconstructed. Individualized dose optimization techniques were used for this CT. COMPARISON: None. FINDINGS: Findings suggestive of focal scarring with bronchiectasis in the posterior aspect of the lingular segment of the left upper lobe. Coronary artery calcification. Normal liver. Normal gallbladder and extrahepatic biliary system. Normal spleen. Normal pancreas. There is a small, circumscribed, smooth, low attenuation right adrenal mass, consistent with an adrenal adenoma. This measures 9.2 mm. Normal left adrenal gland. Normal right kidney. Normal left kidney. Incidental note is made of a retroaortic left renal vein. Normal visualized stomach. Normal small intestine. Normal colon. The appendix is visualized and appears normal. There is diffuse atherosclerotic calcification of the abdominal aorta and its major visceral branches., without a demonstrated aneurysm. Normal inferior vena cava. Normal retroperitoneum. Normal urinary bladder. The patient is status post TURP. There is a small umbilical hernia containing fat. Disc space narrowing at the L2-L3 and L3-L4 levels. CT/Abdomen/Pelvis without Cont IMPRESSION: Focal bronchiectasis and scarring in the posterior aspect of the lingula somewhat of the left upper lobe. Prior TURP. No acute abnormality is seen. 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 Electronically Signed: Grzegorz Delong MD at 9:53 EST ,
[2023-10-14] MEDS: 0.9% Normal Saline (1000mL) 1,000 ML 1000 ML IV (09:05)
--- NOTE | 2023-10-14 09:06 | ED.VIS.GI ---
HPI HPI - GI History of Present Illness Chief Complaint: GI Bleed Narrative Narrative: 72-year-old male presenting with abdominal pain, dark stools. Patient states that he was seen a couple days ago for similar symptoms. Had supratherapeutic INR which he believes is 3.5. He had black stools then. States he had a rectal exam and was ultimately Hemoccult negative. He states stool still black. He has some epigastric pain but also some right lower quadrant pain. Denies fevers but has had some chills. Patient is on Coumadin. Patient states he did get offered a stool study when he last however he brought in from because he could not initially give a stool study in the ER and had been treated for the toilet so was not a good sample. Patient states he feels generally weak and a little lightheaded when he walks. Denies any bloody stools. No hematemesis or coffee-ground emesis. Denies any history of peptic ulcer disease. He states his diarrhea is improving however. Had 1 episode today. It is not as frequent. 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 Lymphadenopathy Nail avulsion, toe Nonrheumatic aortic (valve) stenosis with insufficiency Obesity Oral thrush Orthostasis LIZA (obstructive sleep apnea) Peripheral neuropathy Post-phlebitic syndrome Recurrent epistaxis Shortness of breath Sinusitis Skin lesion Upper respiratory tract infection Urinary frequency Home Medications calcium carbonate 600 mg calcium (1,500 mg) tablet (Calcium) 600 mg PO DAILY SUPPLEMENT 08/24/19 [History Last Taken 12/24/19 08:00] ascorbic acid (vitamin C) 1,000 mg tablet 1 g PO DAILY SUPPLEMENT 03/23/20 [History Last Taken Unknown] leg brace (Ankle Brace) #1 ea 02/09/21 [Rx Last Taken Unknown] leg brace (Knee Support Brace) #1 ea 02/09/21 [Rx Last Taken Unknown] rosuvastatin 20 mg tablet 20 mg PO DAILY CHOLESTEROL #90 tabs 11/05/22 [Rx Last Taken Unknown] warfarin 4 mg tablet 4 mg PO 5XW previous blood clots #90 tabs 09/16/23 [Rx Last Taken 09/24/23] benzonatate 100 mg capsule 100 mg PO BID-TID PRN cough #90 caps 09/19/23 [Rx Last Taken Unknown] cholecalciferol (vitamin D3) 25 mcg (1,000 unit) tablet (Vitamin D3) 25 mcg PO DAILY SUPPLEMENT 09/25/23 [History Last Taken Unknown] warfarin 2 mg tablet 6 mg PO .mondays and fridays previous blood clots 09/25/23 [History Last Taken Unknown] zinc sulfate 50 mg zinc (220 mg) capsule 50 mg PO DAILY PRN SUPPLEMENT 09/25/23 [History Last Taken Unknown] albuterol sulfate 90 mcg/actuation aerosol inhaler 1 inh inhalation Q6H PRN shortness of breath or wheezing #8.5 grams 09/28/23 [Rx Last Taken Unknown] aspirin 81 mg tablet,delayed release 81 mg PO BREAKFAST #30 tabs 09/28/23 [Rx Last Taken Unknown] hydrochlorothiazide 25 mg tablet 25 mg PO DAILY #30 tabs 09/28/23 [Rx Last Taken Unknown] budesonide 160 mcg-glycopyr 9 mcg-formot 4.8 mcg/actuation HFA inhaler (Breztri Aerosphere) 2 inh inhalation BID 10/11/23 [History Last Taken Unknown] gabapentin 300 mg capsule 300 mg PO DAILY NERVE PAIN 10/11/23 [History Last Taken Unknown] ipratropium 0.5 mg-albuterol 3 mg (2.5 mg base)/3 mL nebulization soln 3 ml inhalation Q6H PRN shortness of breath or wheezing #90 mL 10/11/23 [Rx Last Taken Unknown] prednisone 50 mg tablet 50 mg PO DAILY #5 tabs 10/11/23 [Rx Last Taken Unknown] Allergy/AdvReac Type Severity Reaction Status Date / Time Iodinated Contrast Media AdvReac Severe Other Verified 10/14/23 08:26 [Iodinated Contrast Media - IV Dye] oxycodone AdvReac Other Verified 10/14/23 08:26 Family History Father Lung cancer Uncle Cancer Grandfather Myocardial infarction Grandmother Myocardial infarction Mother Myocardial infarction, Onset Age: 90 Surgical History History of arthroscopy of left knee History of back surgery History of nasal polypectomy History of transurethral resection of prostate (~01/2020) History of umbilical hernia repair History of wisdom tooth extraction Status post hammer toe correction Social History Smoking Status: Former smoker Tobacco: How many years used: 50 second hand exposure: Yes quit status: considering quitting alcohol intake: current alcohol intake frequency: holidays/special occasions only substance use type: does not use caffeine: Yes Type: coffee Number of servings: 2 and tea Number of servings: 1 what type of physical activity do you participate in: none ROS ROS ED Constitutional Constitutional ED: Denies chills, fever(s) or sweats Eyes Eyes: Denies blurry vision or change in vision ENT ENT ED: Denies ear pain or sore throat Cardiovascular Cardiovascular: Denies chest pain, palpitations or racing heartbeat Respiratory/Chest Respiratory/Chest: Denies cough, dyspnea or sputum Gastrointestinal Gastrointestinal: Reports abdominal pain and diarrhea; Denies constipation, nausea or vomiting Genitourinary Genitourinary ED: Denies dysuria, hematuria or urinary frequency Musculoskeletal Musculoskeletal: Denies arthralgias, myalgias or neck pain Integumentary Denies abscess, Abrasions or rash Neurologic Neurologic: Denies headache(s), paresthesias or weakness Psychiatric Psychiatric: Denies anxiety, depression, suicidal ideation or suicidal thoughts Endocrine Endocrinology: Denies polydipsia or polyuria EXAM Physical Exam Const Vital Signs: 10/14/23 08:24 10/14/23 10:00 Temperature 99.6 F H Temperature Source Temporal Pulse Rate 73 72 Respiratory Rate 16 20 H Blood Pressure 166/63 H 124/65 H Blood Pressure Mean 97 84 Pulse Ox 96 Oxygen Delivery Method Room Air Positive well nourished General Appearance ED: NAD; Negative for pallor HEENT Reports moist mucous membranes normocephalic and atraumatic Eyes PERRL and EOMs intact bilaterally General Eye ED: Negative for pale conjunctiva or scleral icterus Neck no lymphadenopathy Resp normal respiratory effort and clear to auscultation bilaterally Auscultation: Negative for rales, rhonchi or wheezes Cardio regular rate and regular rhythm GI Palpation: tender epigastric, RLQ and periumbilical Neuro CN's II-XII intact bilaterally Sensorium / Orientation: alert Motor Exam: strength 5/5 throughout Psych mental status grossly normal Skin no wounds General Skin Exam: Negative for jaundice or pallor MDM MDM MDM Narrative Medical decision making narrative: Patient presenting with dark stools, generalized weakness, lightheadedness. Differential includes dehydration, anemia, electrolyte abnormalities, infectious diarrhea, anemia, GI bleed, supratherapeutic INR. CBC will be obtained to assess white blood cell count, hemoglobin, platelets. BMP to assess renal function electrolytes. LFTs to assess liver function. Lipase to assess for pancreatitis. Urinalysis to assess for UTI. INR to assess for coagulopathy. Patient given a liter of normal saline. He is requesting something for pain. He was given fentanyl and Zofran. Review of the medical record shows that he was recently treated for influenza and was on Tamiflu. This was his initial visit on the first. He was also back on the second and was discharged home at that point. CBC shows no leukocytosis but his hemoglobin is dropped to 10.7 from 13.1 which is a significant change given the black stools. He is Hemoccult negative but his stool is black and tarry. This is his second black stool sample that has been negative by Hemoccult. INR is 4.5 and therefore supratherapeutic. BUN is not significantly elevated and renal function is normal. LFTs are unremarkable. Lipase is normal. Patient given initial dose of fentanyl as his blood pressure was slightly low on arrival however after IV fluid resuscitation his blood pressure is now at 124/65. Patient given dose of morphine as he is still having pain. CT of the abdomen pelvis without contrast was obtained given the patient's allergy to contrast. Patient states that even with pre-medication he is significantly symptomatic. Review of the medical record shows that he gets hypotensive and bradycardic with IV contrast. This is even with premedication. CT of the abdomen pelvis does not show anything acute. Discussed the case with Dr. Otto as the hemoglobin is trending downward even the occult stools is normal and he recommended admission. Will hold the patient's Coumadin. He will be on Protonix [address] Otto placed to scope him. Discussed with the hospitalist for admission. Impression: 1. Acute blood loss anemia 2. Upper GI bleed 3. Abdominal pain 4. Supratherapeutic INR Lab Data Labs: Laboratory Results - last 24 hr 10/14/23 10/14/23 08:42 09:00 WBC 9.4 RBC 3.21 L Hgb 10.7 L Hct 32.3 L MCV 100.6 H MCH 33.3 H MCHC 33.1 RDW Std Deviation 53.1 H RDW Coeff of Marcelle 14.4 Plt Count 220 MPV 9.6 Immature Gran % (Auto) 0.500 Neut % (Auto) 85.0 H Lymph % (Auto) 8.1 L [place] % (Auto) 6.2 Eos % (Auto) 0.1 Baso % (Auto) 0.1 Absolute Neuts (auto) 8.0 H Absolute Lymphs (auto) 0.76 L Nucleated RBC % 0 PT 43.2 H INR 4.5 H* Sodium 138 Potassium 4.0 Chloride 106 Carbon Dioxide 28.0 Anion Gap 4 L BUN 24 H Creatinine 1.07 Estim Creat Clear Calc 73.90 Est GFR (MDRD) Af Amer 87 Est GFR (MDRD) Non-Af 72 BUN/Creatinine Ratio 22.4 H Glucose 112 H Calcium 9.5 Lipase 43 Urine Color Yellow Urine Clarity Clear Urine pH 6.0 Ur Specific [place] 1.020 Urine Protein 30 H Urine Glucose (UA) Normal Urine Ketones Negative Urine Occult Blood Negative Urine Nitrite Negative Urine Bilirubin Negative Urine Urobilinogen 1 H Ur Leukocyte Esterase 25 H Urine RBC 0 SEEN Urine WBC 0-5 SEEN Ur Squamous Epith Cells 0-5 SEEN Urine Bacteria 0 SEEN Urine Mucus 0 SEEN Radiography Diagnostic Testing: Clinical Impression(s) from Imaging Studies Abdomen/Pelvis CT 10/14/23 08:57 IMPRESSION: Focal bronchiectasis and scarring in the posterior aspect of the lingula somewhat of the left upper lobe. Prior TURP. No acute abnormality is seen. 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 Electronically Signed: Grzegorz Delong MD at 9:53 EST , Discharge Plan Triage Chief Complaint: GI Bleed ED Provider: Ganesh Reyes Dx/Rx/DC Orders Prescriptions: No Action calcium carbonate [Calcium 600] 600 mg calcium (1,500 mg) tablet 600 mg PO DAILY ascorbic acid (vitamin C) 1,000 mg tablet 1 g PO DAILY (DME) Ankle Brace Misc See Rx Instructions .ROUTE .MEDSUPPLY Qty: 1 0RF Rx Instructions: As directed (DME) Knee Support Brace Misc See Rx Instructions .ROUTE .MEDSUPPLY Qty: 1 0RF Rx Instructions: As directed cholecalciferol (vitamin D3) [Vitamin D3] 25 mcg (1,000 unit) tablet 25 mcg PO DAILY zinc sulfate 50 mg zinc (220 mg) capsule 50 mg PO DAILY PRN (Reason: SUPPLEMENT) Patient Comments: pt states takes zinc periodically warfarin 2 mg tablet 6 mg PO .mondays and fridays Patient Comments: TAKE 3 TABLETS BY MOUTH TWICE A WEEK MONDAYS AND FRIDAYS ONLY aspirin 81 mg Tablet,Delayed Release (Dr/Ec) 81 mg PO BREAKFAST Qty: 30 0RF hydrochlorothiazide 25 mg Tablet 25 mg PO DAILY Qty: 30 0RF albuterol sulfate 90 mcg/actuation HFA aerosol inhaler 1 inh inhalation Q6H PRN (Reason: shortness of breath or wheezing) Qty: 8.5 2RF gabapentin 300 mg capsule 300 mg PO DAILY Patient Comments: pt states supposed to take BID but only takes once a day Breztri Aerosphere 160-9-4.8 mcg/actuation HFA aerosol inhaler 2 inh INHALATION BID Patient Comments: INHALE 2 (TWO) INHALATION EVERY MORNING and EVERY EVENING ipratropium-albuterol 0.5 mg-3 mg(2.5 mg base)/3 mL solution for nebulization 3 ml inhalation Q6H PRN (Reason: shortness of breath or wheezing) Qty: 90 0RF prednisone 50 mg tablet 50 mg PO DAILY Qty: 5 0RF rosuvastatin 20 mg tablet 20 mg PO DAILY Qty: 90 3RF warfarin 4 mg tablet 4 mg PO 5XW Qty: 90 1RF Protocol: Dose Management Protocol Text: Patient Instructed to take: warfarin 4 mg (1 Tab) on [place], [place], , [place], [place], SA warfarin 4 mg (1.5 Tabs) on [place] Rx Instructions: Coumadin 4mg daily except Mon and Fri benzonatate 100 mg capsule 100 mg PO BID-TID PRN (Reason: cough) Qty: 90 3RF Primary Care Provider: Wade Padilal Referrals: Wade Padilla MD [Primary Care Provider] -
[2023-10-14] MEDS: Ondansetron 4 MG/2 ML Vial IV (09:15)
[2023-10-14] MEDS: fentaNYL 100 MCG/2 ML Ampul 25 MCG IV ×2 (09:16→11:41)
[2023-10-14 09:17] LABS: Bacteria 0 SEEN /hpf (None Seen); Mucous, Urine 0 SEEN /hpf (<or=2+); Red Blood Cells-Urine 0 SEEN /hpf (0-5)
[2023-10-14 09:20] LABS: Absolute Lymphocyte Count 0.76 X10^3/uL (0.83-4.51); Basophil# 0.01 X10^3/uL; Basophil% 0.1 % (0-1); Eosinophil# 0.01 X10^3/uL; Eosinophils% 0.1 % (0-5); Hematocrit 32.3 % (40-54); Hemoglobin 10.7 g/dL (13.0-16.5); Lymphocyte # 0.76 X10^3/ul (0.83-4.51); Lymphocyte % 8.1 % (19-41); Mean Corp Hgb Conc 33.1 g/dL (32-36); Mean Corpuscular Hgb 33.3 pg (27.0-32.0); Mean Corpuscular Volume 100.6 fL (80-94); Mean Platelet Vol. 9.6 fl (6.2-12.0); Monocyte# 0.58 X10^3/uL; Monocyte% 6.2 % (0-10); NRBC Flagged by Analyzer 0 % (0-5); Neutrophil # 7.97 X10^3/uL (2.7-7.7); Platelet Count 220 K/mm3 (150-450); RBC Distribution Width CV 14.4 % (11.6-14.6); RBC Distribution Width SD 53.1 fl (35.1-43.9); Red Blood Count 3.21 M/mm3 (4.6-6.2); White Blood Count 9.4 K/mm3 (4.4-11.0)
[2023-10-14 09:29] LABS: Prothrombin Time (Protime)PT. 43.2 SECONDS (11.7-14.9)
[2023-10-14 09:31] LABS: International Normalized Ratio 4.5
[2023-10-14 09:33] LABS: Anion Gap 4 (5-15); BUN 24 mg/dL (7-18); BUN/Creat Ratio 22.4 RATIO (10-20); Calcium,Total 9.5 mg/dL (8.5-10.1); Chloride 106 mmol/L (98-107); Creatinine, Serum 1.07 mg/dL (0.70-1.30); EST Glomerular Filtration Rate 72 mL/min (>60); Est Glom Filt Rate - Afr Amer 87 mL/min (>60); Glucose 112 mg/dL (74-106); Lipase 43 U/L (13-75); Sodium Level 138 mmol/L (136-145)
[2023-10-14 09:41] LABS: Color, Urine Yellow (Yellow); Glucose, Dipstick Normal (Normal); Ketone-Dipstick Negative (Negative); Leukocyte Esterase-Dipstick 25 /ul (Negative); Nitrite-Dipstick Negative (Negative); Occult Blood-Urine Negative /ul (Negative); Protein-Dipstick 30 mg/dl (Negative); Urine Bilirubin Dipstick Negative (Negative); Urine Clarity Clear (Clear); Urine Urobilinogen 1 mg/dl (Normal)
[2023-10-14 09:48] LABS: Squamous Epithelial Cells - UA 0-5 SEEN /hpf (0-5); White Blood Cells 0-5 SEEN /hpf (0-5)
--- NOTE | 2023-10-14 11:17 | NURSING ---
DR ISRAEL CABAN
--- NOTE | 2023-10-14 11:29 | PCM.HP.STD ---
[facility] - General General Date of Admission: 10/14/23 Date of Service: 10/14/23 Chief Complaint: Dark stools [facility] Narrative NAKUL BASSETT, is a 72 M who presents with black tarry stools. Patient symptoms started 5 days prior to his admission. 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 He did notice black tarry stools following initiation of the prednisone. He also did experience progressive generalized weakness. He subsequently presented to the emergency department as a result. Hemoglobin was found to be 10.7. His hemoglobin was 12.6 on 09/28/2023. INR was elevated, 4.5 on admission. 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 Lymphadenopathy Nail avulsion, toe Nonrheumatic aortic (valve) stenosis with insufficiency Obesity Oral thrush Orthostasis LIZA (obstructive sleep apnea) Peripheral neuropathy Post-phlebitic syndrome Recurrent epistaxis Shortness of breath Sinusitis Skin lesion Upper respiratory tract infection Urinary frequency Home Medications calcium carbonate 600 mg calcium (1,500 mg) tablet (Calcium) 600 mg PO DAILY SUPPLEMENT 08/24/19 [History Last Taken 12/24/19 08:00] ascorbic acid (vitamin C) 1,000 mg tablet 1 g PO DAILY SUPPLEMENT 03/23/20 [History Last Taken Unknown] leg brace (Ankle Brace) #1 ea 02/09/21 [Rx Last Taken Unknown] leg brace (Knee Support Brace) #1 ea 02/09/21 [Rx Last Taken Unknown] rosuvastatin 20 mg tablet 20 mg PO DAILY CHOLESTEROL #90 tabs 11/05/22 [Rx Last Taken Unknown] warfarin 4 mg tablet 4 mg PO 5XW previous blood clots #90 tabs 09/16/23 [Rx Last Taken 09/24/23] benzonatate 100 mg capsule 100 mg PO BID-TID PRN cough #90 caps 09/19/23 [Rx Last Taken Unknown] cholecalciferol (vitamin D3) 25 mcg (1,000 unit) tablet (Vitamin D3) 25 mcg PO DAILY SUPPLEMENT 09/25/23 [History Last Taken Unknown] warfarin 2 mg tablet 6 mg PO .mondays and fridays previous blood clots 09/25/23 [History Last Taken Unknown] zinc sulfate 50 mg zinc (220 mg) capsule 50 mg PO DAILY PRN SUPPLEMENT 09/25/23 [History Last Taken Unknown] albuterol sulfate 90 mcg/actuation aerosol inhaler 1 inh inhalation Q6H PRN shortness of breath or wheezing #8.5 grams 09/28/23 [Rx Last Taken Unknown] aspirin 81 mg tablet,delayed release 81 mg PO BREAKFAST #30 tabs 09/28/23 [Rx Last Taken Unknown] hydrochlorothiazide 25 mg tablet 25 mg PO DAILY #30 tabs 09/28/23 [Rx Last Taken Unknown] budesonide 160 mcg-glycopyr 9 mcg-formot 4.8 mcg/actuation HFA inhaler (Breztri Aerosphere) 2 inh inhalation BID 10/11/23 [History Last Taken Unknown] gabapentin 300 mg capsule 300 mg PO DAILY NERVE PAIN 10/11/23 [History Last Taken Unknown] ipratropium 0.5 mg-albuterol 3 mg (2.5 mg base)/3 mL nebulization soln 3 ml inhalation Q6H PRN shortness of breath or wheezing #90 mL 10/11/23 [Rx Last Taken Unknown] prednisone 50 mg tablet 50 mg PO DAILY #5 tabs 10/11/23 [Rx Last Taken Unknown] Allergy/AdvReac Type Severity Reaction Status Date / Time Iodinated Contrast Media AdvReac Severe Other Verified 10/14/23 08:26 [Iodinated Contrast Media - IV Dye] oxycodone AdvReac Other Verified 10/14/23 08:26 Family History Father Lung cancer Uncle Cancer Grandfather Myocardial infarction Grandmother Myocardial infarction Mother Myocardial infarction, Onset Age: 90 Surgical History History of arthroscopy of left knee History of back surgery History of nasal polypectomy History of transurethral resection of prostate (~01/2020) History of umbilical hernia repair History of wisdom tooth extraction Status post hammer toe correction Social History Smoking Status: Former smoker Tobacco: How many years used: 50 second hand exposure: Yes quit status: considering quitting alcohol intake: current alcohol intake frequency: holidays/special occasions only substance use type: does not use caffeine: Yes Type: coffee Number of servings: 2 and tea Number of servings: 1 what type of physical activity do you participate in: none ROS ROS Narrative GENERAL: denies fever, chills, night sweats, weight loss, anorexia HEENT: denies headache, sinus congestion, or drainage, dysphagia RESPIRATORY: shortness of breath, dyspnea on exertion CARDIAC: denies chest pain, palpitations, orthopnea, PND GASTROINTESTINAL: melena, GENITOURINARY: denies dysuria, urgency, frequency, EXTREMITY: denies swelling MUSCULOSKELETAL: denies current joint pain or tenderness NEUROLOGIC: denies focal numbness, weakness, tingling HEMATOLOGIC: denies easy bruising and/or hemorrhage INTEGUMENT: denies rashes PSYCHIATRIC: denies suicidal or homicidal ideation Vital Signs Vital Signs Vital Signs: 10/14/23 08:24 10/14/23 10:00 Temperature 99.6 F H Temperature Source Temporal Pulse Rate 73 72 Respiratory Rate 16 20 H Blood Pressure 166/63 H 124/65 H Blood Pressure Mean 97 84 Pulse Ox 96 Oxygen Delivery Method Room Air Weight Weight: 99.8 kg Body Mass Index (BMI) 31.6 Physical Exam Narrative GENERAL: cooperative HEENT: Atraumatic; normocephalic EYES; Anicteric, Normal Conjunctiva NECK; supple, normal thyroid, RESPIRATORY: Diminished to auscultation CARDIOVASCULAR: Regular S1 S2, GI: soft, normoactive bowel sounds, : No Renal angle tenderness; EXTREMITIES: No edema, no clubbing, MUSCULOSKELETAL: no muscle wasting NEURO: Awake; no lateralizing signs. SKIN: No Rash PSYCH; Flat affect Results Lab / Micro Data 10/14/23 08:42 10/14/23 08:42 Labs: Laboratory Results - last 24 hr 10/14/23 08:42: WBC 9.4, RBC 3.21 L, Hgb 10.7 L, Hct 32.3 L, MCV 100.6 H, MCH 33.3 H, MCHC 33.1, RDW Std Deviation 53.1 H, RDW Coeff of Marcelle 14.4, Plt Count 220, MPV 9.6, Immature Gran % (Auto) 0.500, Neut % (Auto) 85.0 H, Lymph % (Auto) 8.1 L, [place] % (Auto) 6.2, Eos % (Auto) 0.1, Baso % (Auto) 0.1, Absolute Neuts (auto) 8.0 H, Absolute Lymphs (auto) 0.76 L, Nucleated RBC % 0, PT 43.2 H, INR 4.5 H*, Sodium 138, Potassium 4.0, Chloride 106, Carbon Dioxide 28.0, Anion Gap 4 L, BUN 24 H, Creatinine 1.07, Estim Creat Clear Calc 73.90, Est GFR (MDRD) Af Amer 87, Est GFR (MDRD) Non-Af 72, BUN/Creatinine Ratio 22.4 H, Glucose 112 H, Calcium 9.5, Lipase 43 10/14/23 09:00: Urine Color Yellow, Urine Clarity Clear, Urine pH 6.0, Ur Specific [place] 1.020, Urine Protein 30 H, Urine Glucose (UA) Normal, Urine Ketones Negative, Urine Occult Blood Negative, Urine Nitrite Negative, Urine Bilirubin Negative, Urine Urobilinogen 1 H, Ur Leukocyte Esterase 25 H, Urine RBC 0 SEEN, Urine WBC 0-5 SEEN, Ur Squamous Epith Cells 0-5 SEEN, Urine Bacteria 0 SEEN, Urine Mucus 0 SEEN Micro: Microbiology 10/14/23 09:05 Stool Stool Occult Blood (NICK) - Final Imaging Radiology Impression Abdomen/Pelvis CT 10/14/23 08:57 IMPRESSION: Focal bronchiectasis and scarring in the posterior aspect of the lingula somewhat of the left upper lobe. Prior TURP. No acute abnormality is seen. 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 Electronically Signed: Grzegorz Delong MD at 9:53 EST , Assessment & Plan Assessment/Plan (1) Gastrointestinal hemorrhage with melena: PLAN: Plan Patient is a 72-year-old gentleman presenting with melenic stools 1. Acute gastrointestinal hemorrhage with melena ? Patient has been admitted to a monitored bed started on Protonix drip. Patient was typed and crossmatched for 1 unit PRBC consult placed to GI for possible endoscopic evaluation. Patient is on systemic anticoagulation for recurrent DVTs which are supratherapeutic INR this was held on admission 2. Coagulopathy ? Patient is on Coumadin for recurrent DVTs INR on admission was 4.5. Patient presented with GI bleed patient was given 5 mg of vitamin K 3. Anemia ? Secondary to acute blood loss anemia. Patient was typed and crossmatched for 1 unit PRBC plan is to transfuse if hemoglobin falls below 7 4. COPD ? With recent exacerbation patient was discharged on bronchodilator treatment as well as prednisone. Prednisone discontinued given patient presentation 5. History of recurrent DVTs ? Patient is on systemic anticoagulation with Coumadin which is being held 6. Left heart disease ? Patient has history of aortic stenosis?moderate followed by cardiology 7. Peripheral arterial disease ? Patient is on antiplatelet therapy with aspirin held 8. Dyslipidemia -Patient is on statin therapy, continued at home dose 9. Class I obesity with BMI of 31.6 ? Complicating care weight loss advised 10. Obstructive sleep apnea ? PAP therapy at night 11. DVT prophylaxis ? Patient is on Coumadin presented with GI bleed as well as supratherapeutic INR no need for additional measures Time spent in the patient's overall evaluation,decision-making process, review of diagnostic data, adjustment of management, discussion with other providers, nursing nursing and ancillary staff involved in patient's care documentation, 75 Minutes Advance planning; did discuss with the patient regarding advanced directives as well as CODE STATUS. Did explain the various scenarios involved ( FULL CODE, DNR CCA, DNR CCA with no intubation, and DNR CC and what each meant) patient elected to remain full code with CPR and intubation. Order was placed. Time spent on discussion 18 minutes. Charges/Coding Visit Charges Inpatient E&M: 17626 Init Hosp L3 Procedures Hospitalists Procedures: 94796 Advncd Care Plan 30 Min
--- NOTE | 2023-10-14 11:30 | NURSING ---
MED SURG FRIEND GI BLEED
[2023-10-14] MEDS: Pantoprazole Sodium 40 MG in 0.9% Normal Saline (100mL MB+) 100 ML 330 MG IV (11:41)
[2023-10-14] MEDS: Lactated Ringers 1,000 ML 100 ML IV ×2 (13:04→21:26)
[2023-10-14] MEDS: 0.9% Saline Lock 10 ML Syringe IV (13:08)
[2023-10-14 13:25] LABS: Hematocrit 31.3 % (40-54)
[2023-10-14] MEDS: Phytonadione (Vit K1) 5 MG TABLET PO (14:50)
[2023-10-14] MEDS: Pantoprazole Sodium 80 MG in 0.9% Normal Saline (50mL Bag) 15 ML 420 MG IV BOLUS (14:51)
[2023-10-14] MEDS: Pantoprazole Sodium 80 MG in 0.9% Normal Saline (100mL Bag) 80 ML 10 MG CONT INF ×2 (14:51→22:43)
[2023-10-14] MEDS: Acetaminophen 325 MG Tablet 650 MG PO (17:23)
[2023-10-14 18:32] LABS: Hemoglobin 9.8 g/dL (13.0-16.5)
[2023-10-14] MEDS: Ipratropium/Albuterol Sulfate 3 ML AMPUL.NEB INHALATION (21:01)
[2023-10-14] MEDS: Atorvastatin Calcium 40 MG Tablet PO (21:24)
[2023-10-14] MEDS: Dicyclomine 10 MG Capsule 20 MG PO (21:24)
--- NOTE | 2023-10-14 23:00 | EX.PCM.CON.G ---
HPI Consult Data Date of Consult: 10/14/23 HPI Narrative HPI Narrative: NAKUL BASSETT, is a 72-year-old male presenting with abdominal pain, dark stools. Patient states that he was seen a couple days ago for similar symptoms. Had supratherapeutic INR which he believes is 3.5. He had black stools then. States he had a rectal exam and was ultimately Hemoccult negative. He states stool still black. He has some epigastric pain but also some right lower quadrant pain. Denies fevers but has had some chills. Patient is on Coumadin. Patient states he did get offered a stool study when he last however he brought in from because he could not initially give a stool study in the ER and had been treated for the toilet so was not a good sample. Patient states he feels generally weak and a little lightheaded when he walks. Denies any bloody stools. No hematemesis or coffee-ground emesis. Denies any history of peptic ulcer disease. He states his diarrhea is improving however. Had 1 episode today. It is not as frequent. Laboratory analysis shows a hemoglobin of 9.8 with a hematocrit of 30%. His MCV is 101.1 with a platelet count of 206. His hemoglobin did drift down to 9.3 on repeat with a hematocrit of 28.3. His BUN was elevated 19 and creatinine 8.9 CO2 at 29. His LFTs were within normal limits. His INR did increase from 3.4 up until 5. His warfarin is being held. 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 Lymphadenopathy Nail avulsion, toe Nonrheumatic aortic (valve) stenosis with insufficiency Obesity Oral thrush Orthostasis LIZA (obstructive sleep apnea) Peripheral neuropathy Post-phlebitic syndrome Recurrent epistaxis Shortness of breath Sinusitis Skin lesion Upper respiratory tract infection Urinary frequency Home Medications calcium carbonate 600 mg calcium (1,500 mg) tablet (Calcium) 600 mg PO DAILY SUPPLEMENT 08/24/19 [History Last Taken 12/24/19 08:00] ascorbic acid (vitamin C) 1,000 mg tablet 1 g PO DAILY SUPPLEMENT 03/23/20 [History Last Taken Unknown] rosuvastatin 20 mg tablet 20 mg PO DAILY CHOLESTEROL #90 tabs 11/05/22 [Rx Last Taken Unknown] warfarin 4 mg tablet 4 mg PO 5XW previous blood clots #90 tabs 09/16/23 [Rx Last Taken 09/24/23] benzonatate 100 mg capsule 100 mg PO BID-TID PRN cough #90 caps 09/19/23 [Rx Last Taken Unknown] cholecalciferol (vitamin D3) 25 mcg (1,000 unit) tablet (Vitamin D3) 25 mcg PO DAILY SUPPLEMENT 09/25/23 [History Last Taken Unknown] warfarin 2 mg tablet 6 mg PO .mondays and fridays previous blood clots 09/25/23 [History Last Taken Unknown] zinc sulfate 50 mg zinc (220 mg) capsule 50 mg PO DAILY PRN SUPPLEMENT 09/25/23 [History Last Taken Unknown] albuterol sulfate 90 mcg/actuation aerosol inhaler 1 inh inhalation Q6H PRN shortness of breath or wheezing #8.5 grams 09/28/23 [Rx Last Taken Unknown] aspirin 81 mg tablet,delayed release 81 mg PO BREAKFAST #30 tabs 09/28/23 [Rx Last Taken Unknown] hydrochlorothiazide 25 mg tablet 25 mg PO DAILY #30 tabs 09/28/23 [Rx Last Taken Unknown] budesonide 160 mcg-glycopyr 9 mcg-formot 4.8 mcg/actuation HFA inhaler (Breztri Aerosphere) 2 inh inhalation BID Flu 10/11/23 [History Last Taken Unknown] gabapentin 300 mg capsule 300 mg PO DAILY NERVE PAIN 10/11/23 [History Last Taken Unknown] ipratropium 0.5 mg-albuterol 3 mg (2.5 mg base)/3 mL nebulization soln 3 ml inhalation Q6H PRN shortness of breath or wheezing #90 mL 10/11/23 [Rx Last Taken Unknown] prednisone 50 mg tablet 50 mg PO DAILY #5 tabs 10/11/23 [Rx Last Taken Unknown] Allergy/AdvReac Type Severity Reaction Status Date / Time Iodinated Contrast Media AdvReac Severe Other Verified 10/14/23 08:26 [Iodinated Contrast Media - IV Dye] oxycodone AdvReac Other Verified 10/14/23 08:26 Family History Father Lung cancer Uncle Cancer Grandfather Myocardial infarction Grandmother Myocardial infarction Mother Myocardial infarction, Onset Age: 90 Surgical History History of arthroscopy of left knee History of back surgery History of nasal polypectomy History of transurethral resection of prostate (~01/2020) History of umbilical hernia repair History of wisdom tooth extraction Status post hammer toe correction Social History Smoking Status: Former smoker Tobacco: How many years used: 50 second hand exposure: Yes quit status: considering quitting alcohol intake: current alcohol intake frequency: holidays/special occasions only substance use type: does not use caffeine: Yes Type: coffee Number of servings: 2 and tea Number of servings: 1 what type of physical activity do you participate in: none ROS ROS Narrative GENERAL: denies fever, chills, night sweats, weight loss, anorexia HEENT: denies headache, sinus congestion, or drainage, dysphagia RESPIRATORY: shortness of breath, dyspnea on exertion CARDIAC: denies chest pain, palpitations, orthopnea, PND GASTROINTESTINAL: melena, GENITOURINARY: denies dysuria, urgency, frequency, EXTREMITY: denies swelling MUSCULOSKELETAL: denies current joint pain or tenderness NEUROLOGIC: denies focal numbness, weakness, tingling HEMATOLOGIC: denies easy bruising and/or hemorrhage INTEGUMENT: denies rashes PSYCHIATRIC: denies suicidal or homicidal ideation Physical Exam Narrative GENERAL: cooperative HEENT: Atraumatic; normocephalic EYES; Anicteric, Normal Conjunctiva NECK; supple, normal thyroid, RESPIRATORY: Diminished to auscultation CARDIOVASCULAR: Regular S1 S2, GI: soft, normoactive bowel sounds, : No Renal angle tenderness; EXTREMITIES: No edema, no clubbing, MUSCULOSKELETAL: no muscle wasting NEURO: Awake; no lateralizing signs. SKIN: No Rash PSYCH; Flat affect Lab / Micro Data 10/15/23 04:49 10/15/23 08:25 Labs: Laboratory Results - last 24 hr 10/14/23 18:25: Hgb 9.8 L, Hct 30.0 L 02/06/24 00:27: Hgb 9.3 L, Hct 28.3 L 10/15/23 04:49: WBC 6.9, RBC 2.78 L, Hgb 9.2 L, Hct 28.1 L, MCV 101.1 H, MCH 33.1 H, MCHC 32.7, RDW Std Deviation 52.8 H, RDW Coeff of Marcelle 14.4, Plt Count 206, MPV 9.6, Immature Gran % (Auto) 0.400, Neut % (Auto) 56.7, Lymph % (Auto) 31.3, Putnam % (Auto) 11.4 H, Eos % (Auto) 0.1, Baso % (Auto) 0.1, Absolute Neuts (auto) 3.9, Absolute Lymphs (auto) 2.17, Nucleated RBC % 0, PT 47.0 H, INR 5.0 H*, APTT 45.3 H, Sodium 136, Potassium 3.9, Chloride 106, Carbon Dioxide 29.0, Anion Gap 1 L, BUN 19 H, Creatinine 0.97, Estim Creat Clear Calc 79.33, Est GFR (MDRD) Af Amer 98, Est GFR (MDRD) Non-Af 81, BUN/Creatinine Ratio 19.6, Glucose 93, Calcium 8.7, Magnesium 2.2 10/15/23 08:25: Sodium 138, Potassium 3.7, Chloride 107, Carbon Dioxide 26.0, Anion Gap 5, BUN 18, Creatinine 1.03, Estim Creat Clear Calc 74.71, Est GFR (MDRD) Af Amer 91, Est GFR (MDRD) Non-Af 75, BUN/Creatinine Ratio 17.5, Glucose 93, Calcium 8.8, Total Bilirubin 0.40, AST 14 L, ALT 24, Alkaline Phosphatase 42 L, Total Protein 6.8, Albumin 2.6 L, Globulin 4.2, Albumin/Globulin Ratio 0.6 L 10/15/23 13:00: PT 37.6 H, INR 3.7 Assessment & Plan Assessment/Plan (1) Gastrointestinal hemorrhage with melena: PLAN: Plan Patient is a 72-year-old gentleman presenting with melenic stools on Coumadin Acute gastrointestinal hemorrhage with melena ? The differential diagnosis does include peptic ulcer disease, angiodysplasia with his history of heart disease, hiatal hernia with Jhonatan's erosions, gastritis. Also there is a diagnosis does include bleeding and small bowel. He will need to undergo an upper endoscopy to evaluate his upper GI tract. He was explained alternatives, risk, benefits include not withstanding bleeding, infection, sepsis, perforation, need for emergent urgent . He will have an ASA of 3. ? Patient is on Coumadin for recurrent DVTs INR on admission was 4.5. Patient presented with GI bleed patient was given 5 mg of vitamin K INR actually did go up even after administration of vitamin K 5.0 this morning additional vitamin K given -Continue PPI therapy and maintain n.p.o. status. Charges/Coding Visit Charges Inpatient E&M: 12970 Init Hosp L3
[2023-10-15] VITALS (16 sets, daily range): BP systolic 97–135; BP diastolic 46–87; PULSE 52–88; RESP 16–20; TEMP 36.4–37; O2SAT 92–97; BMI 29.7
[2023-10-15 00:44] LABS: Hematocrit 28.3 % (40-54); Hemoglobin 9.3 g/dL (13.0-16.5)
[2023-10-15] MEDS: Acetaminophen 325 MG Tablet 650 MG PO ×2 (01:46→20:13)
[2023-10-15 05:24] LABS: Absolute Lymphocyte Count 2.17 X10^3/uL (0.83-4.51); Absolute Neutrophil Count 3.9 X10^3/uL (2.0-7.7); Basophil# 0.01 X10^3/uL; Basophil% 0.1 % (0-1); Eosinophil# 0.01 X10^3/uL; Eosinophils% 0.1 % (0-5); Hematocrit 28.1 % (40-54); Hemoglobin 9.2 g/dL (13.0-16.5); Lymphocyte # 2.17 X10^3/ul (0.83-4.51); Lymphocyte % 31.3 % (19-41); Mean Corp Hgb Conc 32.7 g/dL (32-36); Mean Corpuscular Hgb 33.1 pg (27.0-32.0); Mean Corpuscular Volume 101.1 fL (80-94); Mean Platelet Vol. 9.6 fl (6.2-12.0); Monocyte# 0.79 X10^3/uL; Monocyte% 11.4 % (0-10); NRBC Flagged by Analyzer 0 % (0-5); Neutrophil # 3.92 X10^3/uL (2.7-7.7); Neutrophil % 56.7 % (47-70); Platelet Count 206 K/mm3 (150-450); RBC Distribution Width CV 14.4 % (11.6-14.6); RBC Distribution Width SD 52.8 fl (35.1-43.9); Red Blood Count 2.78 M/mm3 (4.6-6.2); White Blood Count 6.9 K/mm3 (4.4-11.0)
[2023-10-15 05:33] LABS: Partial Thromboplast Time 45.3 Seconds (24.1-36.2)
[2023-10-15 05:45] LABS: Anion Gap 1 (5-15); BUN 19 mg/dL (7-18); BUN/Creat Ratio 19.6 RATIO (10-20); Calcium,Total 8.7 mg/dL (8.5-10.1); Chloride 106 mmol/L (98-107); Creatinine, Serum 0.97 mg/dL (0.70-1.30); EST Glomerular Filtration Rate 81 mL/min (>60); Est Glom Filt Rate - Afr Amer 98 mL/min (>60); Estimated Creatinine Clearance 79.33 ml/min; Glucose 93 mg/dL (74-106); Magnesium 2.2 mg/dL (1.6-2.6); Potassium 3.9 mmol/L (3.5-5.1); Sodium Level 136 mmol/L (136-145)
[2023-10-15] MEDS: Lactated Ringers 1,000 ML 100 ML IV ×2 (06:35→17:07)
[2023-10-15] MEDS: Ipratropium/Albuterol Sulfate 3 ML AMPUL.NEB INHALATION ×4 (07:17→19:34)
[2023-10-15 08:58] LABS: ALB/GLOB Ratio 0.6 RATIO (0.9-2.4); AST(SGOT) 14 U/L (15-37); Alanine Aminotransfer ALT/SGPT 24 U/L (16-61); Albumin, Serum 2.6 g/dL (3.2-5.0); Alkaline Phosphatase 42 U/L (45-117); Anion Gap 5 (5-15); BUN 18 mg/dL (7-18); BUN/Creat Ratio 17.5 RATIO (10-20); Calcium,Total 8.8 mg/dL (8.5-10.1); Chloride 107 mmol/L (98-107); Creatinine, Serum 1.03 mg/dL (0.70-1.30); EST Glomerular Filtration Rate 75 mL/min (>60); Est Glom Filt Rate - Afr Amer 91 mL/min (>60); Estimated Creatinine Clearance 74.71 ml/min; Globulin 4.2 g/dL (2.2-4.2); Glucose 93 mg/dL (74-106); Potassium 3.7 mmol/L (3.5-5.1); Protein, Total 6.8 g/dL (6.4-8.2); Sodium Level 138 mmol/L (136-145)
[2023-10-15] MEDS: Pantoprazole Sodium 80 MG in 0.9% Normal Saline (100mL Bag) 80 ML 10 MG CONT INF ×2 (09:19→19:50)
[2023-10-15] MEDS: Phytonadione (Vit K1) 5 MG TABLET PO (09:20)
--- NOTE | 2023-10-15 10:42 | PCM.PN.HOSP ---
Reason for Visit Reason for Visit: Diagnoses Melena (10/14/23) Subjective Subjective Patient is a 72-year-old gentleman presenting with melenic stools Objective Data Objective Data Vital Signs: Vital Signs Temp Pulse Resp BP Pulse Ox O2 Del Method 98.0 F 72 20 H 129/65 H 92 Room Air 10/15/23 07:47 10/15/23 07:47 10/15/23 07:47 10/15/23 07:47 10/15/23 07:47 10/15/23 09:34 Oxygen Delivery Method Room Air Weight: 94.2 kg Body Mass Index (BMI) 29.7 Intake & Output: Intake and Output for Last 24 Hours 10/13/23 10/14/23 10/15/23 23:59 23:59 23:59 Intake Total 2060.34 / 2060.34 1015 / 1015 Output Total 1200 / 1200 Balance 2060.34 / 1510.34 -185 / -185 Lab / Micro Data 10/15/23 04:49 10/15/23 08:25 Labs: Laboratory Results - last 24 hr 10/14/23 08:42: Blood Type A POSITIVE, Antibody Screen NEGATIVE, Crossmatch See Detail 10/14/23 13:03: Hgb 10.0 L, Hct 31.3 L 10/14/23 18:25: Hgb 9.8 L, Hct 30.0 L 10/15/23 00:27: Hgb 9.3 L, Hct 28.3 L 10/15/23 04:49: WBC 6.9, RBC 2.78 L, Hgb 9.2 L, Hct 28.1 L, MCV 101.1 H, MCH 33.1 H, MCHC 32.7, RDW Std Deviation 52.8 H, RDW Coeff of Marcelle 14.4, Plt Count 206, MPV 9.6, Immature Gran % (Auto) 0.400, Neut % (Auto) 56.7, Lymph % (Auto) 31.3, [place] % (Auto) 11.4 H, Eos % (Auto) 0.1, Baso % (Auto) 0.1, Absolute Neuts (auto) 3.9, Absolute Lymphs (auto) 2.17, Nucleated RBC % 0, PT 47.0 H, INR 5.0 H*, APTT 45.3 H, Sodium 136, Potassium 3.9, Chloride 106, Carbon Dioxide 29.0, Anion Gap 1 L, BUN 19 H, Creatinine 0.97, Estim Creat Clear Calc 79.33, Est GFR (MDRD) Af Amer 98, Est GFR (MDRD) Non-Af 81, BUN/Creatinine Ratio 19.6, Glucose 93, Calcium 8.7, Magnesium 2.2 10/15/23 08:25: Sodium 138, Potassium 3.7, Chloride 107, Carbon Dioxide 26.0, Anion Gap 5, BUN 18, Creatinine 1.03, Estim Creat Clear Calc 74.71, Est GFR (MDRD) Af Amer 91, Est GFR (MDRD) Non-Af 75, BUN/Creatinine Ratio 17.5, Glucose 93, Calcium 8.8, Total Bilirubin 0.40, AST 14 L, ALT 24, Alkaline Phosphatase 42 L, Total Protein 6.8, Albumin 2.6 L, Globulin 4.2, Albumin/Globulin Ratio 0.6 L Micro: Microbiology 10/14/23 09:05 Stool Stool Occult Blood (NICK) - Final Physical Exam Narrative GENERAL: cooperative HEENT: Atraumatic; normocephalic EYES; Anicteric, Normal Conjunctiva NECK; supple, normal thyroid, RESPIRATORY: Diminished to auscultation CARDIOVASCULAR: Regular S1 S2, GI: soft, normoactive bowel sounds, : No Renal angle tenderness; EXTREMITIES: No edema, no clubbing, MUSCULOSKELETAL: no muscle wasting NEURO: Awake; no lateralizing signs. SKIN: No Rash PSYCH; Flat affect Assessment & Plan Assessment/Plan (1) Gastrointestinal hemorrhage with melena: PLAN: Plan Patient is a 72-year-old gentleman presenting with melenic stools 1. Acute gastrointestinal hemorrhage with melena ? Patient has been admitted to a monitored bed started on Protonix drip. Patient was typed and crossmatched for 1 unit PRBC consult placed to GI for possible endoscopic evaluation. Patient is on systemic anticoagulation for recurrent DVTs which are supratherapeutic INR this was held on admission - 10/15/2021; consult was placed to GI on admission 2. Coagulopathy ? Patient is on Coumadin for recurrent DVTs INR on admission was 4.5. Patient presented with GI bleed patient was given 5 mg of vitamin K ?10/15/2023; INR actually did go up even after administration of vitamin K 5.0 this morning additional vitamin K given 3. Anemia ? Secondary to acute blood loss anemia. Patient was typed and crossmatched for 1 unit PRBC plan is to transfuse if hemoglobin falls below 7 ? 10/15/2023 hemoglobin up to 9.2 4. COPD ? With recent exacerbation patient was discharged on bronchodilator treatment as well as prednisone. Prednisone discontinued given patient presentation 5. History of recurrent DVTs ? Patient is on systemic anticoagulation with Coumadin which is being held 6. Left heart disease ? Patient has history of aortic stenosis?moderate followed by cardiology 7. Peripheral arterial disease ? Patient is on antiplatelet therapy with aspirin held 8. Dyslipidemia -Patient is on statin therapy, continued at home dose 9. Class I obesity with BMI of 31.6 ? Complicating care weight loss advised 10. Obstructive sleep apnea ? PAP therapy at night 11. DVT prophylaxis ? Patient is on Coumadin presented with GI bleed as well as supratherapeutic INR no need for additional measures Time spent in the patient's overall evaluation,decision-making process, review of diagnostic data, adjustment of management, discussion with other providers, nursing nursing and ancillary staff involved in patient's care documentation, 50 minutes Charges/Coding Visit Charges Inpatient E&M: 77995 [facility] Hosp L3
[2023-10-15] MEDS: Gabapentin 300 MG Capsule PO (11:10)
[2023-10-15] MEDS: Calcium Carbonate 500 MG Tablet PO (11:10)
--- NOTE | 2023-10-15 12:22 | CASEMGMT ---
Readmission Note: Index: 09/25-09/28/23. Dx: NSTEMI, COPD Exacerbation Readmission: 10/14/23. Dx: GI Bleed Pt with CAD, HTN, Hyperlipidemia, Obesity, Current smoker, VTE, and aortic stenosis was admitted on the above noted dates for the corresponding dx?s. On index admission, pt was having problems with elevated troponin levels and COPD and was advised to manage these medically and was prescribed Aspirin, hydrochlorothiazide, azithromycin, prednisone, and an albuterol inhaler. Pt was advised to quit smoking. Pt was to see his Pulmonary doctor for his COPD. Pt returned to [facility] with Black tarry stools that started 5 days prior to admission. Pt was also having generalized weakness. Face to face with pt at this time. Pt is resting comfortably in bed and is A&Ox4. 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 Pt states that he quit smoking (after 50 years) 1 and a half weeks ago. Pt states that he was compliant with all of his drug prescriptions. Dr. Ruiz placed a GI Consult to see the pt. Pt states that it is too early to tell what I will need after DC. Pt 6-Click score is 24. No PT order in at this time. Pt states that he is getting a scope done today. Will follow for any potential needs. Reza NOE RN CM
[2023-10-15 13:36] LABS: International Normalized Ratio 3.7; Prothrombin Time (Protime)PT. 37.6 SECONDS (11.7-14.9)
[2023-10-15] MEDS: Lactated Ringers 1,000 ML 15 ML IV (14:12)
--- NOTE | 2023-10-15 14:45 | EGD_PTH ---
PATHOLOGY RESULTS PATIENT: NAKUL BASSETT LOC: [facility] U#:[id number] AGE/SX: 72/M ROOM: [facility] RE10/14/[address]: Dr. Joaquin Ruiz MD : 1950 BED: 1 DIS: 10/17/2023 SPEC #: [id number] RECD: 10/16/23 10:03 STATUS: BOB NOGUEIRA #: [id number] CALOS: 10/15/23 14:[address]: Donavon Otto DEPT: SURGICAL PATHOLOGY RECD BY: Kelly Gonzalez ENTERED: 10/16/23 10:03 SP TYPE: EGD BIOPSY OTHR DR: MD Dr. Wade Overton MD Tissues: Duodenum, NOS Procedures: Surgery Specimen Level IV Comments: @ Ordering doctor for SUIV edited from to @ by RGOOD at 10/16/23 1524 @ Submitting doctor edited from to @ by RGOOD at 10/16/23 1524 HEADER OPERATION: EGD with biopsy and electrohemostasis and clip PRE-OP DIAGNOSIS: Gastrointestinal hemorrhage with melena TISSUE SUBMITTED: Duodenal ulcer biopsy MICROSCOPIC DIAGNOSIS Duodenal ulcer, biopsy: Fragments of duodenal mucosa with focal ulceration, acute and chronic inflammation, congestion, hemorrhage and reactive changes. NEERAJ:arie 10/17/2023 MICROSCOPIC DESCRIPTION Slides are reviewed. GROSS DESCRIPTION Received in fixative is one container labeled with the patient's name and designated duodenal ulcer biopsy. The specimen consists of two irregular fragments of light luna soft tissue that in aggregate measure 0.8 x 0.4 x 0.1 cm. The specimen is totally submitted in one cassette. / NEERAJ:arie 10/16/2023 TC:2 CPT: 41034
--- NOTE | 2023-10-15 15:24 | OP.CCLET_ITS ---
10/15/2023 Wade Padilla MD [address] [place] [address] [place] [address] Re : Upper GI endoscopy procedure for Cliff Lindquist Dear Dr. Padilla This procedure was performed on Sunday, October 15, 2023. My impressions and recommendations are as follows: Impressions : - Non-severe erosive esophagitis with no bleeding. - Medium-sized hiatal hernia. - Non-bleeding duodenal ulcer with no stigmata of bleeding. Biopsied. - Oozing duodenal ulcer with pigmented material. Injected. Treated with a heater probe. Recommendations : - [facility] care. - Full liquid diet. - Continue present medications. - Await pathology results. - Repeat upper endoscopy in 2 years for surveillance. My findings are described in the full procedure note, which is enclosed. If I can be of further assistance, please feel free to contact me at . Sincerely, Donavon Otto, 10/15/2023 3:24:24 PM This report has been signed electronically.
--- NOTE | 2023-10-15 15:24 | OP.EGD_ITS ---
Patient Name: Cliff Lindquist Procedure Date: 10/15/2023 3:02 PM Date of : 1950 Age: 72 Procedure: Upper GI endoscopy Indications: Epigastric abdominal pain, Dyspepsia, Melena Providers: Donavon Otto DO Medicines: Monitored Anesthesia Care Patient Profile: This is a 72 year old male. Refer to note in patient chart for documentation of history and physical. Patient has symptoms. Complications: No immediate complications. Procedure: Pre-Anesthesia Assessment: - Prior to the procedure, a History and Physical was performed, and patient medications and allergies were reviewed. The patient is competent. The risks and benefits of the procedure and the sedation options and risks were discussed with the patient. All questions were answered and informed consent was obtained. Patient identification and proposed procedure were verified by the physician in the pre-procedure area. Mental Status Examination: alert and oriented. Airway Examination: normal oropharyngeal airway and neck mobility. Respiratory Examination: clear to auscultation. CV Examination: normal. Prophylactic Antibiotics: The patient does not require prophylactic antibiotics. Prior Anticoagulants: The patient has taken no 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 or antiplatelet agents. ASA Grade Assessment: III - A patient with severe systemic disease. After reviewing the risks and benefits, the patient was deemed in satisfactory condition to undergo the procedure. The anesthesia plan was to use monitored anesthesia care (MAC). Immediately prior to administration of medications, the patient was re-assessed for adequacy to receive sedatives. The heart rate, respiratory rate, oxygen saturations, blood pressure, adequacy of pulmonary ventilation, and response to care were monitored throughout the procedure. The physical status of the patient was re-assessed after the procedure. After obtaining informed consent, the endoscope was passed under direct vision. Throughout the procedure, the patient's blood pressure, pulse, and oxygen saturations were monitored continuously. The Endoscope was introduced through the mouth, and advanced to the second part of duodenum. The upper GI endoscopy was accomplished without difficulty. The patient tolerated the procedure well. Scope In: 3:08:57 PM Scope Out: 3:17:54 PM Total Procedure Duration Time 0 hours 8 minutes 57 seconds Findings: Non-severe esophagitis with no bleeding was found 35 to 38 cm from the incisors. A medium-sized hiatal hernia was present. No other significant abnormalities were identified in a careful examination of the stomach. One non-bleeding linear duodenal ulcer with no stigmata of bleeding was found in the duodenal bulb. The lesion was 5 mm in largest dimension. Biopsies were taken with a cold forceps for histology. Verification of patient identification for the specimen was done. Estimated blood loss was minimal. One oozing cratered duodenal ulcer with pigmented material was found in the first portion of the duodenum. The lesion was 15 mm in largest dimension. Area was successfully injected with 5 mL of a 0.1 mg/mL solution of epinephrine for drug delivery. Coagulation for hemostasis using heater probe was successful. Estimated blood loss was minimal. To stop active bleeding, two hemostatic clips were successfully placed. Clip pvc loader: [employer]. There was no bleeding at the end of the procedure. Impression: - Non-severe erosive esophagitis with no bleeding. - Medium-sized hiatal hernia. - Non-bleeding duodenal ulcer with no stigmata of bleeding. Biopsied. - Oozing duodenal ulcer with pigmented material. Injected. Treated with a heater probe. Recommendation: - [facility] patient to [facility] ongoing care. - Full liquid diet. - Continue present medications. - Await pathology results. - Repeat upper endoscopy in 2 years for surveillance. Procedure Code(s): --- Professional --- 18554, 59, Esophagogastroduodenoscopy, flexible, transoral; with control of bleeding, any method 44899, 51, Esophagogastroduodenoscopy, flexible, transoral; with biopsy, single or multiple 77919, 59, Esophagogastroduodenoscopy, flexible, transoral; with directed submucosal injection(s), any substance CPT copyright 2021 [employer]. All rights reserved. The codes documented in this report are preliminary and upon javascript developer review may be revised to meet current compliance requirements. Donavon Otto DO 10/15/2023 3:24:24 PM This report has been signed electronically. Number of Addenda: 0 Note Initiated On: 10/15/2023 3:02 PM
--- NOTE | 2023-10-15 16:17 | CHAPLAIN ---
Type of Pastoral Visit _x__ Initial Visit ___ Follow-up Visit ___ On-call Visit ___ General Patient Visit ___ Spiritual Assessment ___ Family Conference ___ Bereavement ___ Rapid Response ___ Code Blue ___ Other (describe below) Pastoral Care Referral From _x_ Patient ___ Family ___ Nurse ___ Physician ___ Locker Room Attendant ___ Sales Representative Door To Door ___ Other (describe below) Sacrament/Intervention ___ Active listening ___ Anointing ___ Temple ___ Bereavement ___ Communion ___ Lawanda exploration ___ ___ Life review _x__ Prayer ___ Reconciliation ___ Sacrament of Sick _x__ Supportive presence ___ Wedding ___ Other (describe below) Pastoral Comments patient has been seen before and reports on recent developments that brought him back to hospital; pt is being readied to go for a procedure but there is time for some encouragement, offer of support to family, and a prayer; family members admit to concern and worry
[2023-10-15] MEDS: Dicyclomine 10 MG Capsule 20 MG PO (17:07)
[2023-10-15] MEDS: Atorvastatin Calcium 40 MG Tablet PO (21:55)
[2023-10-16] VITALS (10 sets, daily range): BP systolic 147–163; BP diastolic 57–63; PULSE 55–71; RESP 15–20; TEMP 36.4; O2SAT 92–95
[2023-10-16] MEDS: Lactated Ringers 1,000 ML 100 ML IV (06:08)
[2023-10-16] MEDS: Pantoprazole Sodium 80 MG in 0.9% Normal Saline (100mL Bag) 80 ML 10 MG CONT INF ×2 (06:08→15:54)
--- NOTE | 2023-10-16 07:06 | NURSING ---
pt expressed frustration over the quality of care he's receiving. states he went without water from the time he received his pills at night until 0430 am. states my nightmare began with dinner yesterday when he failed to receive broth and tea on his dinner tray after his procedure and instead received jello and other clear liquids. This rn repeatedly apologized for his experience. reminded pt to please make staff aware of his needs, so we can attempt to meet them. pt stated repeatedly that the quality of care he has received this admission has decreased significantly from my stay two weeks ago. After additional conversation pt expresses concerns over his unknown diagnosis and prognosis. expresses concerns with the care he's been receiving from his pcp. expresses concerns with the rapid changes in staffing at his pcp's office. pt became tearful. provided emotional support to pt. reminded him that his care is our priority and to call if he needed anything.
[2023-10-16] MEDS: Ipratropium/Albuterol Sulfate 3 ML AMPUL.NEB INHALATION ×2 (07:08→20:37)
[2023-10-16 08:24] LABS: Absolute Lymphocyte Count 1.64 X10^3/uL (0.83-4.51); Absolute Neutrophil Count 3.6 X10^3/uL (2.0-7.7); Basophil# 0.01 X10^3/uL; Basophil% 0.2 % (0-1); Eosinophil# 0.05 X10^3/uL; Eosinophils% 0.8 % (0-5); Hemoglobin 9.7 g/dL (13.0-16.5); Lymphocyte # 1.64 X10^3/ul (0.83-4.51); Lymphocyte % 27.6 % (19-41); Mean Corp Hgb Conc 32.3 g/dL (32-36); Mean Corpuscular Hgb 32.8 pg (27.0-32.0); Mean Corpuscular Volume 101.4 fL (80-94); Mean Platelet Vol. 9.6 fl (6.2-12.0); Monocyte# 0.58 X10^3/uL; Monocyte% 9.8 % (0-10); NRBC Flagged by Analyzer 0 % (0-5); Neutrophil # 3.64 X10^3/uL (2.7-7.7); Neutrophil % 61.3 % (47-70); Platelet Count 222 K/mm3 (150-450); RBC Distribution Width CV 14.5 % (11.6-14.6); RBC Distribution Width SD 53.1 fl (35.1-43.9); Red Blood Count 2.96 M/mm3 (4.6-6.2); White Blood Count 5.9 K/mm3 (4.4-11.0)
[2023-10-16 08:37] LABS: International Normalized Ratio 2.4; Prothrombin Time (Protime)PT. 26.7 SECONDS (11.7-14.9)
[2023-10-16] MEDS: Calcium Carbonate 500 MG Tablet PO (08:37)
[2023-10-16 10:25] LABS: Anion Gap 4 (5-15); BUN 16 mg/dL (7-18); BUN/Creat Ratio 16.1 RATIO (10-20); Calcium,Total 8.9 mg/dL (8.5-10.1); Chloride 104 mmol/L (98-107); Creatinine, Serum 0.99 mg/dL (0.70-1.30); EST Glomerular Filtration Rate 79 mL/min (>60); Est Glom Filt Rate - Afr Amer 95 mL/min (>60); Estimated Creatinine Clearance 77.73 ml/min; Glucose 92 mg/dL (74-106); Potassium 3.8 mmol/L (3.5-5.1); Sodium Level 135 mmol/L (136-145)
[2023-10-16] MEDS: Gabapentin 300 MG Capsule PO (10:27)
--- NOTE | 2023-10-16 10:41 | PN.HOSP_ITS ---
Reason for Visit Reason for Visit: Diagnoses Melena (10/14/23) Subjective Subjective Patient underwent EGD on 10/15/2023 findings and treatment as below ? Non-severe erosive esophagitis with no bleeding. Medium-sized hiatal hernia. Non-bleeding duodenal ulcer with no stigmata of bleeding. Biopsied. - Oozing duodenal ulcer with pigmented material. Injected. Treated with a heater probe. Objective Data Objective Data Vital Signs: Vital Signs Temp Pulse Resp BP Pulse Ox O2 Del Method O2 Flow Rate 97.5 F L 66 20 H 151/63 H 93 Room Air 2 10/16/23 08:36 10/16/23 08:36 10/16/23 09:50 10/16/23 08:36 10/16/23 08:36 10/16/23 09:50 10/15/23 19:34 Oxygen Flow Rate (L/min) 2 Oxygen Delivery Method Room Air Weight: 94.2 kg Body Mass Index (BMI) 29.7 Intake & Output: Intake and Output for Last 24 Hours 10/14/23 10/15/23 10/16/23 23:59 23:59 23:59 Intake Total 2060.34 / 2060.34 2208.5 / 2808.5 1900 / 1900 Output Total 1200 / 2000 1200 / 1200 Balance 2060.34 / 1510.34 1008.5 / 808.5 700 / 700 Lab / Micro Data 10/16/23 08:00 10/16/23 08:00 Labs: Laboratory Results - last 24 hr 10/15/23 13:00: PT 37.6 H, INR 3.7 10/16/23 08:00: WBC 5.9, RBC 2.96 L, Hgb 9.7 L, Hct 30.0 L, MCV 101.4 H, MCH 32.8 H, MCHC 32.3, RDW Std Deviation 53.1 H, RDW Coeff of Marcelle 14.5, Plt Count 222, MPV 9.6, Immature Gran % (Auto) 0.300, Neut % (Auto) 61.3, Lymph % (Auto) 27.6, [place] % (Auto) 9.8, Eos % (Auto) 0.8, Baso % (Auto) 0.2, Absolute Neuts (auto) 3.6, Absolute Lymphs (auto) 1.64, Nucleated RBC % 0, PT 26.7 H, INR 2.4, Sodium 135 L, Potassium 3.8, Chloride 104, Carbon Dioxide 27.0, Anion Gap 4 L, BUN 16, Creatinine 0.99, Estim Creat Clear Calc 77.73, Est GFR (MDRD) Af Amer 95, Est GFR (MDRD) Non-Af 79, BUN/Creatinine Ratio 16.1, Glucose 92, Calcium 8.9 Micro: Microbiology 10/14/23 09:05 Stool Stool Occult Blood (NICK) - Final Physical Exam Narrative GENERAL: cooperative HEENT: Atraumatic; normocephalic EYES; Anicteric, Normal Conjunctiva NECK; supple, normal thyroid, RESPIRATORY: Diminished to auscultation CARDIOVASCULAR: Regular S1 S2, GI: soft, normoactive bowel sounds, : No Renal angle tenderness; EXTREMITIES: No edema, no clubbing, MUSCULOSKELETAL: no muscle wasting NEURO: Awake; no lateralizing signs. SKIN: No Rash PSYCH; Flat affect Assessment & Plan Assessment/Plan (1) Gastrointestinal hemorrhage with melena: PLAN: Plan Patient is a 72-year-old gentleman presenting with melenic stools 1. Acute gastrointestinal hemorrhage with melena ? Patient has been admitted to a monitored bed started on Protonix drip. Patient was typed and crossmatched for 1 unit PRBC consult placed to GI for possible endoscopic evaluation. Patient is on systemic anticoagulation for recurrent DVTs which are supratherapeutic INR this was held on admission - 10/15/2023; consult was placed to GI on admission ? 10/16/2023;Patient underwent EGD on 10/15/2023 findings and treatment as below ? Non-severe erosive esophagitis with no bleeding. Medium-sized hiatal hernia. Non-bleeding duodenal ulcer with no stigmata of bleeding. Biopsied. - Oozing duodenal ulcer with pigmented material. Injected. Treated with a heater probe. 2. Coagulopathy ? Patient is on Coumadin for recurrent DVTs INR on admission was 4.5. Patient p resented with GI bleed patient was given 5 mg of vitamin K ?10/15/2023; INR actually did go up even after administration of vitamin K 5.0 this morning additional vitamin K given ? 10/16/2023 INR remains elevated but therapeutic at 2.4 3. Anemia ? Secondary to acute blood loss anemia. Patient was typed and crossmatched for 1 unit PRBC plan is to transfuse if hemoglobin falls below 7 ? 10/15/2023 hemoglobin up to 9.2 4. COPD ? With recent exacerbation patient was discharged on bronchodilator treatment as well as prednisone. Prednisone discontinued given patient presentation 5. History of recurrent DVTs ? Patient is on systemic anticoagulation with Coumadin which is being held 6. Left heart disease ? Patient has history of aortic stenosis?moderate followed by cardiology 7. Peripheral arterial disease ? Patient is on antiplatelet therapy with aspirin held 8. Dyslipidemia -Patient is on statin therapy, continued at home dose 9. Class I obesity with BMI of 31.6 ? Complicating care weight loss advised 10. Obstructive sleep apnea ? PAP therapy at night 11. DVT prophylaxis ? Patient is on Coumadin presented with GI bleed as well as supratherapeutic INR no need for additional measures 12. Chest pain ? Patient EKG did not reveal any ischemic changes pain did resolve with Tums Time spent in the patient's overall evaluation,decision-making process, review of diagnostic data, adjustment of management, discussion with other providers, nursing nursing and ancillary staff involved in patient's care documentation, 35 minutes Charges/Coding Visit Charges Inpatient E&M: 28428 Subs Hosp L2
[2023-10-16] MEDS: Dicyclomine 10 MG Capsule 20 MG PO (10:45)
[2023-10-16] MEDS: Acetaminophen 325 MG Tablet 650 MG PO (13:31)
--- NOTE | 2023-10-16 14:49 | CHAPLAIN ---
Type of Pastoral Visit ___ Initial Visit _x__ Follow-up Visit ___ On-call Visit ___ General Patient Visit ___ Spiritual Assessment ___ Family Conference ___ Bereavement ___ Rapid Response ___ Code Blue ___ Other (describe below) Pastoral Care Referral From _x__ Patient ___ Family ___ Nurse ___ Physician ___ Restorative Aide ___ Wire Drawing Setter ___ Other (describe below) Sacrament/Intervention _x__ Active listening ___ Anointing ___ Judaism ___ Bereavement ___ Communion _x__ Lawanda exploration ___ _x__ Life review _x__ Prayer ___ Reconciliation ___ Sacrament of Sick _x__ Supportive presence ___ Wedding ___ Other (describe below) Pastoral Comments Initially the patient is alone in the room and expresses his feelings of some relief but moreso of sense of urgency to know wht is going on in his body; pt is also concerned for family members and especially for his son who is to be in February; at times the patient is tearful in the conversation especiall when asked about personal things, how he is coping, and his familly'
--- NOTE | 2023-10-16 16:46 | CASEMGMT ---
Pt states that he would like a nebulizer at [place]. Local list of in network DME companies provided and the pt chooses [employer] for DME.
[2023-10-16] MEDS: Atorvastatin Calcium 40 MG Tablet PO (21:10)
[2023-10-17] MEDS: Pantoprazole Sodium 80 MG in 0.9% Normal Saline (100mL Bag) 80 ML 10 MG CONT INF ×2 (01:36→11:22)
[2023-10-17 05:39] VITALS: BP 139/71; PULSE 73; RESP 18; TEMP 36.6; O2SAT 95
[2023-10-17] MEDS: Ipratropium/Albuterol Sulfate 3 ML AMPUL.NEB INHALATION (06:53)
[2023-10-17 06:54] VITALS: PULSE 70; RESP 18; O2SAT 94
[2023-10-17 07:13] LABS: Absolute Lymphocyte Count 1.59 X10^3/uL (0.83-4.51); Absolute Neutrophil Count 2.9 X10^3/uL (2.0-7.7); Basophil# 0.02 X10^3/uL; Basophil% 0.4 % (0-1); Eosinophils% 1.9 % (0-5); Hematocrit 33.1 % (40-54); Hemoglobin 10.6 g/dL (13.0-16.5); Lymphocyte # 1.59 X10^3/ul (0.83-4.51); Lymphocyte % 30.6 % (19-41); Mean Corpuscular Hgb 32.7 pg (27.0-32.0); Mean Corpuscular Volume 102.2 fL (80-94); Monocyte% 11.6 % (0-10); NRBC Flagged by Analyzer 0 % (0-5); Neutrophil # 2.85 X10^3/uL (2.7-7.7); Neutrophil % 54.9 % (47-70); Platelet Count 252 K/mm3 (150-450); RBC Distribution Width CV 14.4 % (11.6-14.6); RBC Distribution Width SD 53.5 fl (35.1-43.9); Red Blood Count 3.24 M/mm3 (4.6-6.2); White Blood Count 5.2 K/mm3 (4.4-11.0)
[2023-10-17 07:23] LABS: International Normalized Ratio 2.1; Prothrombin Time (Protime)PT. 23.3 SECONDS (11.7-14.9)
[2023-10-17 07:45] LABS: Anion Gap 2 (5-15); BUN 11 mg/dL (7-18); BUN/Creat Ratio 9.2 RATIO (10-20); Chloride 107 mmol/L (98-107); EST Glomerular Filtration Rate 63 mL/min (>60); Est Glom Filt Rate - Afr Amer 76 mL/min (>60); Estimated Creatinine Clearance 64.13 ml/min; Glucose 104 mg/dL (74-106); Sodium Level 138 mmol/L (136-145)
--- NOTE | 2023-10-17 08:03 | PN.HOSP_ITS ---
Reason for Visit Reason for Visit: Diagnoses Melena (10/14/23) Subjective Subjective Patient seen hemoglobin remained stable plan is for patient to be discharged home Objective Data Objective Data Vital Signs: Vital Signs Temp Pulse Resp BP Pulse Ox O2 Del Method O2 Flow Rate 97.8 F 70 18 139/71 H 94 Room Air 2 10/17/23 05:39 10/17/23 06:54 10/17/23 06:54 10/17/23 05:39 10/17/23 06:54 10/17/23 06:54 10/15/23 19:34 Oxygen Flow Rate (L/min) 2 Oxygen Delivery Method Room Air Weight: 94.2 kg Body Mass Index (BMI) 29.7 Intake & Output: Intake and Output for Last 24 Hours 10/15/23 10/16/23 10/17/23 23:59 23:59 23:59 Intake Total 2208.5 / 2808.5 2974.34 / 2974.34 97 / 97 Output Total 1200 / 2000 2000 / 4180 3180 / 3180 Balance 1008.5 / 808.5 974.34 / -1205.66 -3083 / -3083 Lab / Micro Data 10/17/23 06:50 10/17/23 06:50 Labs: Laboratory Results - last 24 hr 10/16/23 08:00: WBC 5.9, RBC 2.96 L, Hgb 9.7 L, Hct 30.0 L, MCV 101.4 H, MCH 32.8 H, MCHC 32.3, RDW Std Deviation 53.1 H, RDW Coeff of Marcelle 14.5, Plt Count 222, MPV 9.6, Immature Gran % (Auto) 0.300, Neut % (Auto) 61.3, Lymph % (Auto) 27.6, [place] % (Auto) 9.8, Eos % (Auto) 0.8, Baso % (Auto) 0.2, Absolute Neuts (auto) 3.6, Absolute Lymphs (auto) 1.64, Nucleated RBC % 0, PT 26.7 H, INR 2.4, Sodium 135 L, Potassium 3.8, Chloride 104, Carbon Dioxide 27.0, Anion Gap 4 L, BUN 16, Creatinine 0.99, Estim Creat Clear Calc 77.73, Est GFR (MDRD) Af Amer 95, Est GFR (MDRD) Non-Af 79, BUN/Creatinine Ratio 16.1, Glucose 92, Calcium 8.9 10/17/23 06:50: WBC 5.2, RBC 3.24 L, Hgb 10.6 L, Hct 33.1 L, MCV 102.2 H, MCH 32.7 H, MCHC 32.0, RDW Std Deviation 53.5 H, RDW Coeff of Marcelle 14.4, Plt Count 252, MPV 9.0, Immature Gran % (Auto) 0.600, Neut % (Auto) 54.9, Lymph % (Auto) 30.6, [place] % (Auto) 11.6 H, Eos % (Auto) 1.9, Baso % (Auto) 0.4, Absolute Neuts (auto) 2.9, Absolute Lymphs (auto) 1.59, Nucleated RBC % 0, PT 23.3 H, INR 2.1, Sodium 138, Potassium 4.0, Chloride 107, Carbon Dioxide 29.0, Anion Gap 2 L, BUN 11, Creatinine 1.20, Estim Creat Clear Calc 64.13, Est GFR (MDRD) Af Amer 76, Est GFR (MDRD) Non-Af 63, BUN/Creatinine Ratio 9.2 L, Glucose 104, Calcium 9.0 Micro: Microbiology 10/14/23 09:05 Stool Stool Occult Blood (NICK) - Final Physical Exam Narrative GENERAL: cooperative HEENT: Atraumatic; normocephalic EYES; Anicteric, Normal Conjunctiva NECK; supple, normal thyroid, RESPIRATORY: Diminished to auscultation CARDIOVASCULAR: Regular S1 S2, GI: soft, normoactive bowel sounds, : No Renal angle tenderness; EXTREMITIES: No edema, no clubbing, MUSCULOSKELETAL: no muscle wasting NEURO: Awake; no lateralizing signs. SKIN: No Rash PSYCH; Flat affect Assessment & Plan Assessment/Plan (1) Gastrointestinal hemorrhage with melena: PLAN: Plan Patient is a 72-year-old gentleman presenting with melenic stools 1. Acute gastrointestinal hemorrhage with melena ? Patient has been admitted to a monitored bed started on Protonix drip. Patient was typed and crossmatched for 1 unit PRBC consult placed to GI for possible endoscopic evaluation. Patient is on systemic anticoagulation for recurrent DVTs which are supratherapeutic INR this was held on admission - 10/15/2023; consult was placed to GI on admission ? 10/16/2023;Patient underwent EGD on 10/15/2023 findings and treatment as below ? Non-severe erosive esophagitis with no bleeding. Medium-sized hiatal hernia. Non-bleeding duodenal ulcer with no stigmata of bleeding. Biopsied. - Oozing duodenal ulcer with pigmented material. Injected. Treated with a heater probe. ? 10/17/2023 hemoglobin remained stable plan is for patient to be assessed for discharge 2. Coagulopathy ? Patient is on Coumadin for recurrent DVTs INR on admission was 4.5. Patient presented with GI bleed patient was given 5 mg of vitamin K ?10/15/2023; INR actually did go up even after administration of vitamin K 5.0 this morning additional vitamin K given ? 10/16/2023 INR remains elevated but therapeutic at 2.4 3. Anemia ? Secondary to acute blood loss anemia. Patient was typed and crossmatched for 1 unit PRBC plan is to transfuse if hemoglobin falls below 7 ? 10/15/2023 hemoglobin up to 9.2 4. COPD ? With recent exacerbation patient was discharged on bronchodilator treatment as well as prednisone. Prednisone discontinued given patient presentation 5. History of recurrent DVTs ? Patient is on systemic anticoagulation with Coumadin which is being held 6. Left heart disease ? Patient has history of aortic stenosis?moderate followed by cardiology 7. Peripheral arterial disease ? Patient is on antiplatelet therapy with aspirin held 8. Dyslipidemia -Patient is on statin therapy, continued at home dose 9. Class I obesity with BMI of 31.6 ? Complicating care weight loss advised 10. Obstructive sleep apnea ? PAP therapy at night 11. DVT prophylaxis ? Patient is on Coumadin presented with GI bleed as well as supratherapeutic INR no need for additional measures 12. Chest pain ? Patient EKG did not reveal any ischemic changes pain did resolve with Tums Time spent in the patient's overall evaluation,decision-making process, review of diagnostic data, adjustment of management, discussion with other providers, nursing nursing and ancillary staff involved in patient's care documentation, 35 minutes Charges/Coding Visit Charges Inpatient E&M: 43919 Subs Hosp L2
[2023-10-17] MEDS: Gabapentin 300 MG Capsule PO (08:42)
[2023-10-17] MEDS: Calcium Carbonate 500 MG Tablet PO (08:42)
[2023-10-17 08:48] VITALS: BP 113/88; PULSE 78; RESP 17; TEMP 36.7; O2SAT 98
[2023-10-17] MEDS: Acetaminophen 325 MG Tablet 650 MG PO (11:02)
[2023-10-17] MEDS: Albuterol 2.5 MG/3 ML VIAL.NEB. INHALATION (11:10)
[2023-10-17 11:20] VITALS: BP 129/61; PULSE 76; RESP 17; TEMP 36.5; O2SAT 93
[2023-10-17 11:22] VITALS: BP 129/61; PULSE 66
[2023-10-17] MEDS: Nitroglycerin (INPATIENT USE) 0.4 MG TAB.SUBL 0.400000000000000022 MG SL (11:22)
[2023-10-17] MEDS: Furosemide 40 MG/4 ML Vial IV (11:45)
--- NOTE | 2023-10-17 12:21 | PCM.DC.SUM ---
Providers Date of Admission: 10/14/23 Date of Discharge: 10/17/23 Primary Care Physician: Dr. Wade Padilla MD Consultations 10/14/23 12:22 Consult: Gastroenterology Routine Consulting Provider: [facility] Reason for Consult: GI bleed EMERGENT Consult: Yes Notified: Yes Date Notified: 10/14/23 Time Notified: 11:24 Method of Notification: ED Physician Initiated Reason For Visit: GI BLEED Diagnosis Discharge Diagnosis (1) Gastrointestinal hemorrhage with melena: Status: Acute Code(s): K92.1 - Melena Plan Patient is a 72-year-old gentleman presenting with melenic stools 1. Acute gastrointestinal hemorrhage with melena ? Patient has been admitted to a monitored bed started on Protonix drip. Patient was typed and crossmatched for 1 unit PRBC consult placed to GI for possible endoscopic evaluation. Patient is on systemic anticoagulation for recurrent DVTs which are supratherapeutic INR this was held on admission - 10/15/2023; consult was placed to GI on admission ? 10/16/2023;Patient underwent EGD on 10/15/2023 findings and treatment as below ? Non-severe erosive esophagitis with no bleeding. Medium-sized hiatal hernia. Non-bleeding duodenal ulcer with no stigmata of bleeding. Biopsied. - Oozing duodenal ulcer with pigmented material. Injected. Treated with a heater probe. ? 10/17/2023 hemoglobin remained stable plan is for patient to be assessed for discharge 2. Coagulopathy ? Patient is on Coumadin for recurrent DVTs INR on admission was 4.5. Patient presented with GI bleed patient was given 5 mg of vitamin K ?10/15/2023; INR actually did go up even after administration of vitamin K 5.0 this morning additional vitamin K given ? 10/16/2023 INR remains elevated but therapeutic at 2.4 3. Anemia ? Secondary to acute blood loss anemia. Patient was typed and crossmatched for 1 unit PRBC plan is to transfuse if hemoglobin falls below 7 ? 10/15/2023 hemoglobin up to 9.2 4. COPD ? With recent exacerbation patient was discharged on bronchodilator treatment as well as prednisone. Prednisone discontinued given patient presentation 5. History of recurrent DVTs ? Patient is on systemic anticoagulation with Coumadin which is being held 6. Left heart disease ? Patient has history of aortic stenosis?moderate followed by cardiology 7. Peripheral arterial disease ? Patient is on antiplatelet therapy with aspirin held 8. Dyslipidemia -Patient is on statin therapy, continued at home dose 9. Class I obesity with BMI of 31.6 ? Complicating care weight loss advised 10. Obstructive sleep apnea ? PAP therapy at night 11. DVT prophylaxis ? Patient is on Coumadin presented with GI bleed as well as supratherapeutic INR no need for additional measures 12. Chest pain ? Patient EKG did not reveal any ischemic changes pain did resolve with Tums Time spent in the patient's overall evaluation,decision-making process, review of diagnostic data, adjustment of management, discussion with other providers, nursing nursing and ancillary staff involved in patient's care documentation, 35 minutes Medications at Discharge Home Medications calcium carbonate 600 mg calcium (1,500 mg) tablet (Calcium) 600 mg PO DAILY SUPPLEMENT 08/24/19 ascorbic acid (vitamin C) 1,000 mg tablet 1 g PO DAILY SUPPLEMENT 03/23/20 rosuvastatin 20 mg tablet 20 mg PO DAILY CHOLESTEROL #90 tabs 11/05/22 benzonatate 100 mg capsule 100 mg PO BID-TID PRN cough #90 caps 09/19/23 cholecalciferol (vitamin D3) 25 mcg (1,000 unit) tablet (Vitamin D3) 25 mcg PO DAILY SUPPLEMENT 09/25/23 zinc sulfate 50 mg zinc (220 mg) capsule 50 mg PO DAILY PRN SUPPLEMENT 09/25/23 albuterol sulfate 90 mcg/actuation aerosol inhaler 1 inh inhalation Q6H PRN shortness of breath or wheezing #8.5 grams 09/28/23 hydrochlorothiazide 25 mg tablet 25 mg PO DAILY #30 tabs 09/28/23 budesonide 160 mcg-glycopyr 9 mcg-formot 4.8 mcg/actuation HFA inhaler (Breztri Aerosphere) 2 inh inhalation BID Flu 10/11/23 gabapentin 300 mg capsule 300 mg PO DAILY NERVE PAIN 10/11/23 ipratropium 0.5 mg-albuterol 3 mg (2.5 mg base)/3 mL nebulization soln 3 ml inhalation Q6H PRN shortness of breath or wheezing #90 mL 10/11/23 pantoprazole 40 mg tablet,delayed release (Protonix) 40 mg PO DAILY #90 tabs 10/17/23 polysaccharide iron complex 150 mg iron capsule (Ferrex) 150 mg PO DAILY #60 caps 10/17/23 sennosides 8.6 mg-docusate sodium 50 mg tablet (Senna with Docusate Sodium) 1 tab-cap PO QHS #60 tabs 10/17/23 warfarin 4 mg tablet 4 mg PO DAILY previous blood clots #90 tabs 10/17/23 Physical Exam Narrative GENERAL: cooperative HEENT: Atraumatic; normocephalic EYES; Anicteric, Normal Conjunctiva NECK; supple, normal thyroid, RESPIRATORY: Diminished to auscultation CARDIOVASCULAR: Regular S1 S2, GI: soft, normoactive bowel sounds, : No Renal angle tenderness; EXTREMITIES: No edema, no clubbing, MUSCULOSKELETAL: no muscle wasting NEURO: Awake; no lateralizing signs. SKIN: No Rash PSYCH; Flat affect Weight / BMI Weight Weight: 94.2 kg Body Mass Index (BMI) 29.7 ABG / Lab / Microbiology Data 10/17/23 06:50 10/17/23 06:50 Laboratory: Laboratory Results - last 24 hr 10/17/23 06:50: WBC 5.2, RBC 3.24 L, Hgb 10.6 L, Hct 33.1 L, MCV 102.2 H, MCH 32.7 H, MCHC 32.0, RDW Std Deviation 53.5 H, RDW Coeff of Marcelle 14.4, Plt Count 252, MPV 9.0, Immature Gran % (Auto) 0.600, Neut % (Auto) 54.9, Lymph % (Auto) 30.6, [place] % (Auto) 11.6 H, Eos % (Auto) 1.9, Baso % (Auto) 0.4, Absolute Neuts (auto) 2.9, Absolute Lymphs (auto) 1.59, Nucleated RBC % 0, PT 23.3 H, INR 2.1, Sodium 138, Potassium 4.0, Chloride 107, Carbon Dioxide 29.0, Anion Gap 2 L, BUN 11, Creatinine 1.20, Estim Creat Clear Calc 64.13, Est GFR (MDRD) Af Amer 76, Est GFR (MDRD) Non-Af 63, BUN/Creatinine Ratio 9.2 L, Glucose 104, Calcium 9.0 Microbiology: Microbiology 10/14/23 09:05 Stool Stool Occult Blood (NICK) - Final D/C Instructions Discharge Diet: No restrictions Discharge Activity: Return to Normal Activity Call your doctor if you observe: Fever of 101 or Higher, Shortness of breath, Fainting spells and Chest pain Meaningful Use Info Meaningful Use Diagnoses (Choose all that apply): None applicable Discharge Plan Admission Admit Date/Time: 10/14/23 11:18 Attending Provider: Joaquin Ruiz Primary Care Provider: Wade Padilla Discharge Orders/Prescriptions Prescriptions: New polysaccharide iron complex [Ferrex 150] 150 mg iron capsule 150 mg PO DAILY Qty: 60 0RF sennosides-docusate sodium [Senna with Docusate Sodium] 8.6-50 mg tablet 1 tab-cap PO QHS Qty: 60 0RF pantoprazole [Protonix] 40 mg tablet,delayed release (DR/EC) 40 mg PO DAILY Qty: 90 0RF Continued calcium carbonate [Calcium 600] 600 mg calcium (1,500 mg) tablet 600 mg PO DAILY ascorbic acid (vitamin C) 1,000 mg tablet 1 g PO DAILY cholecalciferol (vitamin D3) [Vitamin D3] 25 mcg (1,000 unit) tablet 25 mcg PO DAILY zinc sulfate 50 mg zinc (220 mg) capsule 50 mg PO DAILY PRN (Reason: SUPPLEMENT) Patient Comments: pt states takes zinc periodically hydrochlorothiazide 25 mg Tablet 25 mg PO DAILY Qty: 30 0RF albuterol sulfate 90 mcg/actuation HFA aerosol inhaler 1 inh inhalation Q6H PRN (Reason: shortness of breath or wheezing) Qty: 8.5 2RF gabapentin 300 mg capsule 300 mg PO DAILY Patient Comments: pt states supposed to take BID but only takes once a day Breztri Aerosphere 160-9-4.8 mcg/actuation HFA aerosol inhaler 2 inh INHALATION BID Patient Comments: INHALE 2 (TWO) INHALATION EVERY MORNING and EVERY EVENING ipratropium-albuterol 0.5 mg-3 mg(2.5 mg base)/3 mL solution for nebulization 3 ml inhalation Q6H PRN (Reason: shortness of breath or wheezing) Qty: 90 0RF rosuvastatin 20 mg tablet 20 mg PO DAILY Qty: 90 3RF benzonatate 100 mg capsule 100 mg PO BID-TID PRN (Reason: cough) Qty: 90 3RF Changed warfarin 4 mg tablet 4 mg PO DAILY Qty: 90 1RF Protocol: Dose Management Protocol Text: Patient Instructed to take: warfarin 4 mg (1 Tab) on , , , , FR, SA warfarin 4 mg (1.5 Tabs) on WE Rx Instructions: Coumadin 4mg daily except Sat and Sat Discontinued warfarin 2 mg tablet 6 mg PO .mondays and fridays Patient Comments: TAKE 3 TABLETS BY MOUTH TWICE A WEEK MONDAYS AND FRIDAYS ONLY aspirin 81 mg Tablet,Delayed Release (Dr/Ec) 81 mg PO BREAKFAST Qty: 30 0RF prednisone 50 mg tablet 50 mg PO DAILY Qty: 5 0RF Referrals / Follow Up: Wade Padilla MD [Primary Care Provider] - Within 1 Week (For PT/INR check on 10/21/2023) Disposition Disposition (needs filled in before D/C Order can be placed): Home, Self Care Charges/Coding Visit Charges Inpatient E&M: 89780 Disch Hosp >30min
--- NOTE | 2023-10-17 12:49 | CASEMGMT ---
TOREY VICKERS F/U: This RN CM noted pt to be discharged with nebulizer. Per pt's preference, facilitated 2d2c quick script with Dr. Ruiz and submitted referral via [facility]. Call placed to [facility] liaison who states she will deliver to pt's room after 2pm. Will notify pt. Noted pt has been on RA and no home O2 need. Pt also continuing on warfarin for anticoagulation. Mak Alex RN ACM.
[2023-10-17 14:48] VITALS: BP 136/64; PULSE 71; RESP 17; TEMP 36.6; O2SAT 97
== END 2023-10-17 16:12 | disposition home or self-care (01) | DRG 378 ==
LOC: ED 11:21 → PCU 11:41
PROVIDERS: Anesthesiology; Family Medicine; Internal Medicine Gastroenterology; Admitting Provider Internal Medicine; Emergency Provider Student in an Organized Health Care Education/Training Program; PCP Internal Medicine; Visit Provider Internal Medicine
PROC: 0DJ08ZZ Inspection of Upper Intestinal Tract, Via Natural or Artificial Opening Endoscopic (ICD-10-PCS; CPT 43235; principal; 2023-10-15 14:40)
DX: K26.4 Chronic or unspecified duodenal ulcer with hemorrhage (principal); D62 Acute posthemorrhagic anemia; K22.10 Ulcer of esophagus without bleeding; J44.9 Chronic obstructive pulmonary disease, unspecified; I73.9 Peripheral vascular disease, unspecified; I10 Essential (primary) hypertension; E78.5 Hyperlipidemia, unspecified; K44.9 Diaphragmatic hernia without obstruction or gangrene; G47.33 Obstructive sleep apnea (adult) (pediatric); E66.9 Obesity, unspecified; R79.1 Abnormal coagulation profile; Z68.31 Body mass index [BMI] 31.0-31.9, adult; Z91.041 Radiographic dye allergy status; Z79.82 Long term (current) use of aspirin; Z79.01 Long term (current) use of 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s; Z79.899 Other long term (current) drug therapy; Z86.16 Personal history of COVID-19; Z87.891 Personal history of nicotine dependence
CPT/HCPCS: 36415; 71045; 74176; 80048; 80053; 81001; 82274; 83690; 83735; 84484; 85014; 85018; 85025; 85610; 85730; 86850; 86900; 86901; 86920; 86922; 87506; 88305; 93005; 94640; 94668; 99284; 99285; 99406; J7030; J7120; A4216; J1940; J2405; J3490

== ENCOUNTER 2023-10-26 05:06 | Emergency (ER) | payer MEDICARE, SELFPAY ==
[2023-10-26] VITALS (8 sets, daily range): BP systolic 114–165; BP diastolic 55–79; PULSE 63–81; RESP 18–26; TEMP 36.2–37.1; O2SAT 92–97; BMI 29.0
--- NOTE | 2023-10-26 05:25 | CT_ITS ---
EXAM: CT ABDOMEN AND PELVIS WITHOUT INTRAVENOUS CONTRAST CLINICAL INDICATION: lower abdominal pain TECHNIQUE: Helically acquired images were obtained of the abdomen and pelvis without intravenous contrast. This CT exam was performed using one or more of the following dose reduction techniques: automated exposure control, adjustment of the mA and/or kV according to patient size, and/or use of iterative reconstruction technique. RADIATION DOSE: CTDIvol = 20.21 mGy, DLP = 1045.11 mGy-cm COMPARISON: 10/14/2023. FINDINGS: LOWER THORAX: Coronary artery calcifications. Lung bases are clear. No cardiomegaly. No significant pericardial effusion. ABDOMEN: LIVER: Unremarkable. Homogeneous. GALLBLADDER AND BILE DUCTS: Unremarkable. No calcified gallstones. No gallbladder distention or wall edema. No intra- or extrahepatic biliary ductal dilation. PANCREAS: Unremarkable. No focal cystic mass. SPLEEN: Unremarkable. Normal size without focal cystic or solid mass. ADRENALS: Unremarkable. No nodules. KIDNEYS AND URETERS: Unremarkable. Normal renal size and position. No hydronephrosis. STOMACH AND BOWEL: Unremarkable. No stomach or bowel distention. No focal inflammatory change. PELVIS: APPENDIX: Normal appendix. BLADDER: Transurethral resection of the prostate. REPRODUCTIVE: See above. ABDOMEN and PELVIS: INTRAPERITONEAL SPACE: Unremarkable. No ascites or other fluid collection. No free air. BONES/JOINTS: Unremarkable. No suspicious lytic or blastic abnormality. SOFT TISSUES: Unremarkable. No discrete abdominal or pelvic wall hernia. VASCULATURE: See above. LYMPH NODES: Unremarkable. No enlarged lymph nodes. CT/Abdomen/Pelvis without Cont IMPRESSION: 1. Coronary artery disease. 2. No acute abdominal pelvic abnormality. 3. Transurethral resection of the prostate. Electronically Signed: Yang Arellano MD at 7:10 EST ,
--- NOTE | 2023-10-26 05:25 | CT_ITS ---
EXAM: CT HEAD WITHOUT INTRAVENOUS CONTRAST CLINICAL INDICATION: trauma TECHNIQUE: Multiple axial images were obtained of the head without intravenous contrast. This CT exam was performed using one or more of the following dose reduction techniques: automated exposure control, adjustment of the mA and/or kV according to patient size, and/or use of iterative reconstruction technique. RADIATION DOSE: CTDIvol = 44.99 mGy, DLP = 1727.20 mGy-cm COMPARISON: 01/16/2023. FINDINGS: BRAIN AND EXTRA-AXIAL SPACES: Mild generalized atrophy. Mild low density bilaterally in the deep white matter. No intra- or extra-axial hemorrhage. No evidence of acute infarct. No intracranial mass or mass effect. There is preservation of the tovar/white matter interface. Posterior fossa structures are unremarkable. No hydrocephalus. Basal cisterns are patent. BONES/JOINTS: Unremarkable. No discrete lytic or blastic abnormalities. SINUSES: Unremarkable as visualized. Clear. MASTOID AIR CELLS: Unremarkable. Clear. ORBITS: Visualized globes, extraocular muscles, optic nerves and retrobulbar fat appear unremarkable. CT/Brain/Head without Contrast IMPRESSION: Mild generalized atrophy. Mild low density bilaterally in the deep white matter. This likely represents chronic small vessel ischemic changes in the deep white matter. Electronically Signed: Yang Arellano MD at 6:33 EST ,
--- NOTE | 2023-10-26 05:25 | EKG12_ITS ---
Test Reason : Blood Pressure : / mmHG Vent. Rate : 069 BPM Atrial Rate : 069 BPM P-R Int : 146 ms QRS Dur : 090 ms QT Int : 404 ms P-R-T Axes : 066 067 058 degrees QTc Int : 432 ms Poor data quality, interpretation may be adversely affected Normal sinus rhythm Normal ECG Confirmed by ISABEL GUNDERSON, BON ([id number]), purchasing expeditor ISIDRA CARLOS ([id number]) on 10/28/2023 10:12:00 AM Referred By: Confirmed By:BON HALL MD
--- OUTSIDE RECORDS SUMMARY | 2023-10-26 05:41 | XMS RPT_ITS | CCD ---
Author Name Unknown Address [address] [place] [address] Organization [facility] Care Team Providers Care Deicer Repairer Name Role Phone Unknown, Pcp Unavailable Unavailable Carl Cruz Unavailable Unavailable Wade Padilla MD Primary Care Provider [phone] Allergies Allergy Classification Reported Allergen(s) Allergy Type Date of Onset Reaction(s) Facility (2 sources) Iodine Drug Allergy 11-09-2016 Unknown [facility] Medications Completed/Discontinued Medications Medication Drug Class(es) Dates Sig (Normalized) Sig (Original) acetaminophen 325 mg oral tablet (1 source) take 2 tablets by mouth every six hours as needed acetaminophen (TYLENOL) 325 mg tablet Take 650 mg by mouth every 6 hours as needed. 0 Active Problems Active Problems Problem Classification Problem Date Documented Date Episodic/Chronic Other diseases of veins and lymphatics (1 source) Postthrombotic syndrome; Translations: [Postthrombotic syndrome without complications of unspecified extremity] Onset: 01-18-2020 01-18-2020 Chronic Other injuries and conditions due to external causes (2 sources) Tear of skin 03-17-2022 Episodic Past or Other Problems Problem Classification Problem Date Documented Da te Episodic/Chronic Other aftercare (1 source) Patient encounter status; Translations: [Encounter for therapeutic drug level monitoring] Onset: 01-18-2020 01-18-2020 Episodic Other diseases of veins and lymphatics (1 source) Peripheral venous insufficiency; Translations: [Venous insufficiency (chronic) (peripheral)] Onset: 01-18-2020 01-18-2020 Episodic Phlebitis; thrombophlebitis and thromboembolism (1 source) H/O: Deep vein thrombosis; Translations: [Personal history of other venous thrombosis and embolism] Onset: 01-18-2020 01-18-2020 Episodic Residual codes; unclassified (1 source) Tobacco use and exposure - finding; Translations: [Tobacco use] Onset: 01-18-2020 01-18-2020 Episodic Results Test Name Value Interpretation Reference Range Facil ity Vital Signs Date Time Vital Sign Value Performing Clinician Facility 03-17-2022 14:56-0400 Body height 177.8 cm Pcp Unknown [facility] 03-17-2022 14:56-0400 Body temperature 97.88 [degF] Pcp Unknown [facility] 03-17-2022 14:56-0400 Diastolic blood pressure 59 mm[Hg] Pcp Unknown [facility] 03-17-2022 14:56-0400 Heart rate 74 /min Pcp Unknown [facility] 03-17-2022 14:56-0400 SaO2% (BldA) [Mass fraction] 94 % Pcp Unknown [facility] 03-17-2022 14:56-0400 Systolic blood pressure 111 mm[Hg] Pcp Unknown [facility] Encounters Encounter Date Encounter Type Care Provider Facility Start: 10-14-2023 ambulatory Spring Tomas RN NURSE COO Plan of Treatment Date Care Activity Detail Author Start: 09-09-2023 Advance Directive Discussion Advance Directive Discussion [facility] Start: 09-09-2023 Depression Assessment Depression Ass essment [facility] Start: 05-10-2023 Influenza vaccination Influenza Vacc ine (#1) [facility] Start: 01-17-2023 Diabetes Screening Diabetes Screenin g [facility] Start: 06-24-2020 Pneumococcal Vaccine : 65+ (2 of 2 - PPSV23 or PCV20) Pneumococcal Vaccine: 65+ (2 of 2 - PPSV23 or PCV20) [facility] Start: 2010 RSV Vaccine (1 - 1-d ose 60+ series) RSV Vaccine (1 - 1-dose 60+ series) [facility] Start: 02-03-2005 Urine microalbumin profile DTaP,Tdap,Td Vaccine (1 - Tdap) [facility] Start: 2000 Shingrix Vaccine (1 of 2) Shingrix V accine (1 of 2) [facility] Start: 11-30-1995 Screening for malign ant neoplasm of colon [facility] Start: 1985 Lipid panel Lipid Screening [facility] Start: 1968 Hepatitis C screening Hepatitis C René pelayo [facility] Start: 06-01-1951 Covid-19 Vaccine (#1) Covid-19 Vacci ne (#1) [facility] Start: 1950 Abdominal aortic ane urysm screening Abdominal Aortic Aneurysm Screening [facility] Payers Date Payer Category Payer Private Health Insurance [facility] AARP SUPPLEMENT [id number] 2016-Present [phone] [address] [place] [address] Indemnity [id number] 2015 Medicare MEDICARE MEDICAR E A AND B [id number] 2015-Present [phone] [address] [address] [place] [address] Medicare [id number] 2015 Unknown Social History Date Type Detail Facility [facility] Tobacco smoking consumption unknown [facility] Start: 1968 Tobacco smoking status NHIS Smokes tobacco daily [facility] Work Phone: Start: 1968 History of tobacco use Cigarette Smoker [facility] Work Phone: Start: 01-18-2020 End: 08-15-2020 Cigarettes smoked current (pack per day) - Reported 0.5 [facility] Work Phone: Start: 01-18-2020 Tobacco use and exposure Smokeless tobacco non-user [facility] Work Phone: Start: 05-11-2020 Alcohol intake Current drinker of alcohol (finding) [facility] Start: 01-18-2020 End: 08-15-2020 Alcohol Use Disorder Identification Test - Consumption [AUDIT-C] [facility] Work Phone: How often to you hav e a drink containing alcohol? Monthly or less [facility] Work Phone: How many standard dr inks containing alcohol do you have on a typical day? 1 or 2 [facility] Work Phone: How often do you hav e 6 or more drinks on 1 occasion? Never [facility] Work Phone: National Score (1-10 0), lower number is lower risk Not on file [facility] Start: 01-18-2020 Tobacco Comment ~0.5 packs per day [facility] Start: 11-09-2016 Alcohol Comment occasional [facility] Start: 1950 Sex Assigned At Not on file [facility] Note 10-14-2023 Telephone Encounter - Spring Tomas RN - 10/14/2023 6:45 AM EST Note Date & Type Note Facility 10-14-2023 Miscellaneous Notes Formattin g of this note might be different from the original. Reason for Call: Dark, foul smelling bowel movements Outcome: Go to ED now. Patient acknowledges understanding. Reason for Disposition Black or tarry bowel movements (Exception: Chronic-unchanged black-wilson BMs AND is taking iron pills or Pepto-Bismol.) Protocols used: Rectal [id number] Patient states he has had blackish green, foul smelling bowel movements. He states he is on Coumadin. documented in this encounter [facility] Summary Purpose Family History No [...] INFORMATION SOURCE (unrecogn ized section and content) Source Comments (unrecognize d section and content) In the event this informatio n is protected by the Federal Confidentiality of Alcohol and Drug Abuse Patient Records regulations: The Federal rules restrict any use of the information to criminally investigate or prosecute any alcohol or drug abuse patient.[facility] Reason for Visit (unrecogniz ed section and content) Care Teams (unrecognized sec tion and content) FOR RECORDS PERTAINING TO PATIENTS [...] BE BASED ON THE PRIMARY CLINICAL RECORDS. [facility] [employer] [facility]. provides no warranty or guarantee of the accuracy or completeness of information in this document.
--- NOTE | 2023-10-26 05:53 | EX.ED.DYSGE1 ---
HPI History of Present Illness Chief Complaint: Abd Pain Informant: patient and spouse/S.O. Narrative Narrative: Patient presents via EMS secondary to multiple complaints. states that he was recently here in the emergency room for chest pain. He then returned on October 14 secondary to a GI bleed. He was admitted October 14 through . His Coumadin dose was decreased as he was supratherapeutic on arrival. He had an EGD on October 16 that revealed esophagitis and bleeding duodenal ulcers that were treated. states since his discharge she has not been himself. He has drastic mood swings and is frequently tearful. He has been complaining of lower abdominal pain. Tonight he was having shaking in his legs so this prompted a call to 911. It does appear the patient was prescribed hydroxyzine on October 18 by primary care physician. He had a follow-up visit with her in the office on the and this note is also reviewed. [facility] Medical History Acute sinusitis, unspecified Arterial insufficiency BPH (benign prostatic hyperplasia) Bronchitis Carotid artery stenosis Chronic sinusitis Colon cancer screening Cough COVID-19 (07/2021) Dysuria Essential hypertension Generalized anxiety disorder 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 reflux disease) GI bleed Health care maintenance Hemorrhoids Hernia Hyperlipidemia Hypersomnia Hypotensive episode Intermittent claudication group home current use of 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 Lymphadenopathy Nail avulsion, toe Nonrheumatic aortic (valve) stenosis with insufficiency Obesity Oral thrush Orthostasis LIZA (obstructive sleep apnea) Peripheral neuropathy Post-phlebitic syndrome Recurrent epistaxis Shortness of breath Sinusitis Skin lesion Upper respiratory tract infection Urinary frequency Home Medications calcium carbonate 600 mg calcium (1,500 mg) tablet (Calcium) 600 mg PO DAILY SUPPLEMENT 08/24/19 [History Last Taken 12/24/19 08:00] ascorbic acid (vitamin C) 1,000 mg tablet 1 g PO DAILY SUPPLEMENT 03/23/20 [History Last Taken Unknown] rosuvastatin 20 mg tablet 20 mg PO DAILY CHOLESTEROL #90 tabs 11/05/22 [Rx Last Taken Unknown] benzonatate 100 mg capsule 100 mg PO BID-TID PRN cough #90 caps 09/19/23 [Rx Last Taken Unknown] cholecalciferol (vitamin D3) 25 mcg (1,000 unit) tablet (Vitamin D3) 25 mcg PO DAILY SUPPLEMENT 09/25/23 [History Last Taken Unknown] zinc sulfate 50 mg zinc (220 mg) capsule 50 mg PO DAILY PRN SUPPLEMENT 09/25/23 [History Last Taken Unknown] albuterol sulfate 90 mcg/actuation aerosol inhaler 1 inh inhalation Q6H PRN shortness of breath or wheezing #8.5 grams 09/28/23 [Rx Last Taken Unknown] hydrochlorothiazide 25 mg tablet 25 mg PO DAILY #30 tabs 09/28/23 [Rx Last Taken Unknown] budesonide 160 mcg-glycopyr 9 mcg-formot 4.8 mcg/actuation HFA inhaler (Breztri Aerosphere) 2 inh inhalation BID Flu 10/11/23 [History Last Taken Unknown] gabapentin 300 mg capsule 300 mg PO DAILY NERVE PAIN 10/11/23 [History Last Taken Unknown] ipratropium 0.5 mg-albuterol 3 mg (2.5 mg base)/3 mL nebulization soln 3 ml inhalation Q6H PRN shortness of breath or wheezing #90 mL 10/11/23 [Rx Last Taken Unknown] polysaccharide iron complex 150 mg iron capsule (Ferrex) 150 mg PO DAILY #60 caps 10/17/23 [Rx Last Taken Unknown] sennosides 8.6 mg-docusate sodium 50 mg tablet (Senna with Docusate Sodium) 1 tab-cap PO QHS #60 tabs 10/17/23 [Rx Last Taken Unknown] warfarin 4 mg tablet 4 mg PO DAILY previous blood clots #90 tabs 10/17/23 [Rx Last Taken 09/24/23] hydroxyzine HCl 25 mg tablet 25 mg PO BID PRN anxiety #20 tabs 10/18/23 [Rx Last Taken Unknown] essential oil 1 drp .Route PRN PRN calming 10/21/23 [History Last Taken Unknown] pantoprazole 40 mg tablet,delayed release 40 mg PO DAILY 10/22/23 [History Last Taken Unknown] Allergy/AdvReac Type Severity Reaction Status Date / Time Iodinated Contrast Media AdvReac Severe Other Verified 10/22/23 09:35 [Iodinated Contrast Media - IV Dye] oxycodone AdvReac Other Verified 10/22/23 09:35 Family History Father Lung cancer Uncle Cancer Grandfather Myocardial infarction Grandmother Myocardial infarction Mother Myocardial infarction, Onset Age: 90 Surgical History History of arthroscopy of left knee History of back surgery History of nasal polypectomy History of transurethral resection of prostate (~01/2020) History of umbilical hernia repair History of wisdom tooth extraction Status post hammer toe correction Social History Smoking Status: Former smoker Tobacco: How many years used: 50 second hand exposure: Yes quit status: considering quitting alcohol intake: current alcohol intake frequency: holidays/special occasions only substance use type: does not use caffeine: Yes Type: coffee Number of servings: 2 and tea Number of servings: 1 what type of physical activity do you participate in: none ROS ROS ED Constitutional Constitutional ED: Denies chills or fever(s) Eyes Eyes: Denies change in vision or discharge from eye(s) ENT ENT ED: Denies discharge from eye(s), rhinorrhea or sore throat Cardiovascular Cardiovascular: Denies chest pain Respiratory/Chest Respiratory/Chest: Denies cough or dyspnea Gastrointestinal Gastrointestinal: Reports abdominal pain and constipation; Denies diarrhea, nausea or vomiting Genitourinary Genitourinary ED: Denies difficulty urinating or dysuria Musculoskeletal Musculoskeletal: Denies back pain or extremity pain Integumentary Denies Abrasions or rash Neurologic Neurologic: Reports other Details: Tremors bilateral lower extremities ; Denies headache(s) or weakness Psychiatric Psychiatric: Reports anxiety Allergic/Immunologic Allergic/Immunologic ED: Denies lip swelling or urticaria EXAM Physical Exam Const Vital Signs: 10/26/23 05:07 10/26/23 05:22 10/26/23 05:37 Temperature 97.2 F L 97.2 F L 97.1 F L Temperature Source Temporal Temporal Temporal Pulse Rate 75 81 68 Respiratory Rate 20 H 25 H 21 H Blood Pressure 165/66 H 138/68 H 137/59 H Blood Pressure Mean 99 91 85 Pulse Ox 94 95 92 Oxygen Delivery Method Room Air Room Air Room Air 10/26/23 06:34 Temperature 98.8 F Temperature Source Oral Pulse Rate 63 Respiratory Rate 26 H Blood Pressure 137/59 H Blood Pressure Mean 85 Pulse Ox 97 Oxygen Delivery Method Room Air Positive well nourished and well developed General Appearance ED: well developed HEENT HEENT Narrative: Superficial abrasion over the top of the scalp. Eyes EOMs intact bilaterally Chest Wall inspection of chest normal and palpation of chest normal Resp normal respiratory effort and clear to auscultation bilaterally Cardio regular rate and regular rhythm GI GI Narrative: Abdomen soft with lower abdominal tenderness. No guarding or rebound. No palpable masses. Abdomen is distended. Extremity Extremity Narrative: Tremors noted to the bilateral lower extremities. These can for the most part be controlled voluntarily by him. Neuro Neuro Narrative: Patient is alert and will answer questions appropriately when asked. He moves all 4 extremities. Psych Attitude: agitated Mood & Affect: anxious Skin Skin Narrative: Scalp abrasion as noted above. MDM MDM MDM Narrative Medical decision making narrative: Patient's recent hospital admission and follow-up visit are reviewed. Patient placed on cardiac monitor technician. EKG obtained to evaluate for cardiac arrhythmia/ischemia. IV line established. Labwork obtained to evaluate for leukocytosis, anemia, and electrolyte derangement. Urinalysis obtained to evaluate for infection/hematuria. IV fluids given. CT scan of the head obtained given patient's personality changes. He has an allergy to IV contrast even when premedicated so this will be done noncontrast. CT scan of flank will be also obtained secondary to his lower abdominal pain. History & Record Review Discussion w/independent historian: Patient and Family Additional record(s) reviewed:: Prior inpatient record, Prior ED visit and Prior labs Lab Data Attestation: I reviewed the patient's lab results. Labs: Laboratory Results - last 24 hr 10/26/23 10/26/23 05:52 07:15 WBC 5.4 RBC 3.02 L Hgb 9.8 L Hct 30.1 L MCV 99.7 H MCH 32.5 H MCHC 32.6 RDW Std Deviation 52.9 H RDW Coeff of Marcelle 14.6 Plt Count 220 MPV 8.9 Immature Gran % (Auto) 0.200 Neut % (Auto) 56.1 Lymph % (Auto) 28.0 Gillespie % (Auto) 13.7 H Eos % (Auto) 1.3 Baso % (Auto) 0.7 Absolute Neuts (auto) 3.0 Absolute Lymphs (auto) 1.51 Nucleated RBC % 0 PT 20.9 H INR 1.8 Sodium 138 Potassium 3.7 Chloride 106 Carbon Dioxide 27.0 Anion Gap 5 BUN 13 Creatinine 1.02 Estim Creat Clear Calc 74.59 Est GFR (MDRD) Af Amer 92 Est GFR (MDRD) Non-Af 76 BUN/Creatinine Ratio 12.7 Glucose 109 H Calcium 8.7 Total Bilirubin 0.40 Direct Bilirubin 0.15 AST 27 ALT 26 Alkaline Phosphatase 46 Troponin I High Sens 26 Total Protein 6.5 Albumin 3.0 L Globulin 3.5 Lipase 32 Urine Color Yellow Urine Clarity Clear Urine pH 7.0 Ur Specific [place] 1.010 Urine Protein Negative Urine Glucose (UA) Normal Urine Ketones Negative Urine Occult Blood Negative Urine Nitrite Negative Urine Bilirubin Negative Urine Urobilinogen Normal Ur Leukocyte Esterase Negative Urine RBC 0 SEEN Urine WBC 0 SEEN Ur Squamous Epith Cells 0 SEEN Urine Bacteria 0 SEEN Urine Mucus 0 SEEN Radiography Diagnostic Testing: Clinical Impression(s) from Imaging Studies Abdomen/Pelvis CT 10/26/23 05:25 IMPRESSION: 1. Coronary artery disease. 2. No acute abdominal pelvic abnormality. 3. Transurethral resection of the prostate. Electronically Signed: Yang Arellano MD at 7:10 EST , Brain CT 10/26/23 05:25 IMPRESSION: Mild generalized atrophy. Mild low density bilaterally in the deep white matter. This likely represents chronic small vessel ischemic changes in the deep white matter. Electronically Signed: Yang Arellano MD at 6:33 EST , EKG Initial EKG: Attestation: I personally reviewed and interpreted this EKG as follows: Interpretation: Sinus Rhythm (Sinus at 69 with no acute ischemia.) Treatment and Re-Evaluation :: CBC was normal white count 5.4 with a hemoglobin of 9.8. Hemoglobin at discharge was 10.6 and had been as low as 9.2 during his hospitalization. INR slightly subtherapeutic at 1.8. Chemistry studies unremarkable. LFTs are normal and lipase is normal. Urinalysis reveals no evidence of acute infection. CT scan of the head reveals mild generalized atrophy. CT scan of the abdomen and pelvis reveals coronary artery disease with no acute abdominal abnormality. I initially question as to whether hydroxyzine could have been responsible for the patient's symptoms and he was having some urinary retention which was causing his lower abdominal pain. James catheter was placed with approximately 600 cc out. This did not improve his pain. He was given a small dose of fentanyl along with 0.5 mg of p.o. Ativan. At this time patient is sitting in the bed more comfortably. He continues to focus on his treatment when he was in the hospital and will quickly become agitated or tearful. Family as well as the patient himself admits that this is not him and he needs to get some help. I spoke with outside the room. She states that his personality has completely changed since his last hospital admission. He is very quick to snap at people and yell at them. She states that he has deemed his office as a place that only he can enter and no one else can be there. She states that they were afraid to leave him alone this past week and at one point he was talking about suicide as well. I did ask the patient if it would be okay to have a counselor/older adult social work specialist from the counseling center, and speak with him. He actually wants this and states it was supposed to happen the last 2 days of his admission and nobody ever showed up for him. Patient be signed out to oncoming physician for further observation while awaiting crisis evaluation. Discharge Plan Triage Chief Complaint: Abd Pain ED Provider: Corazon Watson Dx/Rx/DC Orders Prescriptions: No Action calcium carbonate [Calcium 600] 600 mg calcium (1,500 mg) tablet 600 mg PO DAILY ascorbic acid (vitamin C) 1,000 mg tablet 1 g PO DAILY pantoprazole 40 mg tablet,delayed release (DR/EC) 40 mg PO DAILY essential oil 1 drp oil 1 drp .Route PRN PRN (Reason: calming) Rx Instructions: 1 drp as needed PRN; rub on skin prn jojoba, smoking sensation craving relief cholecalciferol (vitamin D3) [Vitamin D3] 25 mcg (1,000 unit) tablet 25 mcg PO DAILY zinc sulfate 50 mg zinc (220 mg) capsule 50 mg PO DAILY PRN (Reason: SUPPLEMENT) Patient Comments: pt states takes zinc periodically hydrochlorothiazide 25 mg Tablet 25 mg PO DAILY Qty: 30 0RF albuterol sulfate 90 mcg/actuation HFA aerosol inhaler 1 inh inhalation Q6H PRN (Reason: shortness of breath or wheezing) Qty: 8.5 2RF gabapentin 300 mg capsule 300 mg PO DAILY Patient Comments: pt states supposed to take BID but only takes once a day Breztri Aerosphere 160-9-4.8 mcg/actuation HFA aerosol inhaler 2 inh INHALATION BID Patient Comments: INHALE 2 (TWO) INHALATION EVERY MORNING and EVERY EVENING ipratropium-albuterol 0.5 mg-3 mg(2.5 mg base)/3 mL solution for nebulization 3 ml inhalation Q6H PRN (Reason: shortness of breath or wheezing) Qty: 90 0RF polysaccharide iron complex [Ferrex 150] 150 mg iron capsule 150 mg PO DAILY Qty: 60 0RF sennosides-docusate sodium [Senna with Docusate Sodium] 8.6-50 mg tablet 1 tab-cap PO QHS Qty: 60 0RF warfarin 4 mg tablet 4 mg PO DAILY Qty: 90 1RF Protocol: Dose Management Protocol Text: Patient Instructed to take: warfarin 4 mg (1 Tab) on [place], [place], , TH, [place], SA warfarin 4 mg (1.5 Tabs) on WE Rx Instructions: Coumadin 4mg daily except Mon and Fri rosuvastatin 20 mg tablet 20 mg PO DAILY Qty: 90 3RF benzonatate 100 mg capsule 100 mg PO BID-TID PRN (Reason: cough) Qty: 90 3RF hydroxyzine HCl 25 mg tablet 25 mg PO BID PRN (Reason: anxiety) Qty: 20 0RF Primary Care Provider: Wade Padilla Referrals: Wade Padilla MD [Primary Care Provider] -
[2023-10-26 06:02] LABS: Absolute Lymphocyte Count 1.51 X10^3/uL (0.83-4.51); Basophil# 0.04 X10^3/uL; Basophil% 0.7 % (0-1); Eosinophil# 0.07 X10^3/uL; Eosinophils% 1.3 % (0-5); Hematocrit 30.1 % (40-54); Hemoglobin 9.8 g/dL (13.0-16.5); Lymphocyte # 1.51 X10^3/ul (0.83-4.51); Mean Corp Hgb Conc 32.6 g/dL (32-36); Mean Corpuscular Hgb 32.5 pg (27.0-32.0); Mean Corpuscular Volume 99.7 fL (80-94); Mean Platelet Vol. 8.9 fl (6.2-12.0); Monocyte# 0.74 X10^3/uL; Monocyte% 13.7 % (0-10); NRBC Flagged by Analyzer 0 % (0-5); Neutrophil # 3.02 X10^3/uL (2.7-7.7); Neutrophil % 56.1 % (47-70); Platelet Count 220 K/mm3 (150-450); RBC Distribution Width CV 14.6 % (11.6-14.6); RBC Distribution Width SD 52.9 fl (35.1-43.9); Red Blood Count 3.02 M/mm3 (4.6-6.2); White Blood Count 5.4 K/mm3 (4.4-11.0)
[2023-10-26 06:11] LABS: International Normalized Ratio 1.8; Prothrombin Time (Protime)PT. 20.9 SECONDS (11.7-14.9)
[2023-10-26 06:23] LABS: AST(SGOT) 27 U/L (15-37); Alanine Aminotransfer ALT/SGPT 26 U/L (16-61); Alkaline Phosphatase 46 U/L (45-117); Anion Gap 5 (5-15); BUN 13 mg/dL (7-18); BUN/Creat Ratio 12.7 RATIO (10-20); Bilirubin, Direct 0.15 mg/dL (0.00-0.30); Calcium,Total 8.7 mg/dL (8.5-10.1); Chloride 106 mmol/L (98-107); Creatinine, Serum 1.02 mg/dL (0.70-1.30); EST Glomerular Filtration Rate 76 mL/min (>60); Est Glom Filt Rate - Afr Amer 92 mL/min (>60); Estimated Creatinine Clearance 74.59 ml/min; Globulin 3.5 g/dL (2.2-4.2); Glucose 109 mg/dL (74-106); Lipase 32 U/L (13-75); Potassium 3.7 mmol/L (3.5-5.1); Protein, Total 6.5 g/dL (6.4-8.2); Sodium Level 138 mmol/L (136-145); Troponin-I HS 26 pg/mL (3.0-78.0)
[2023-10-26] MEDS: 0.9% Normal Saline (1000mL) 1,000 ML 150 ML IV (06:26)
[2023-10-26] MEDS: Lidocaine Jelly 2% 20 ML Syringe (URO-JET) 1 APPLIC TOPICAL (07:03)
[2023-10-26 07:25] LABS: Bacteria 0 SEEN /hpf (None Seen); Mucous, Urine 0 SEEN /hpf (<or=2+); Red Blood Cells-Urine 0 SEEN /hpf (0-5); Squamous Epithelial Cells - UA 0 SEEN /hpf (0-5); White Blood Cells 0 SEEN /hpf (0-5)
[2023-10-26 07:27] LABS: Color, Urine Yellow (Yellow); Glucose, Dipstick Normal (Normal); Ketone-Dipstick Negative (Negative); Leukocyte Esterase-Dipstick Negative /ul (Negative); Nitrite-Dipstick Negative (Negative); Occult Blood-Urine Negative /ul (Negative); Protein-Dipstick Negative (Negative); Urine Bilirubin Dipstick Negative (Negative); Urine Clarity Clear (Clear); Urine Urobilinogen Normal (Normal)
[2023-10-26] MEDS: fentaNYL 100 MCG/2 ML Ampul 25 MCG IV (07:34)
[2023-10-26] MEDS: LORazepam 0.5 MG Tablet PO (07:38)
--- NOTE | 2023-10-26 08:24 | NURSING ---
FAXED CHART TO CRISIS
--- NOTE | 2023-10-26 08:50 | NURSING ---
CRISIS IN ROOM
--- NOTE | 2023-10-26 10:52 | ED.RN ---
went in room to offer patient lunch, denied at this time. wants to speak with counselor about why he is needing to stay. at bedside.
[2023-10-26] MEDS: Albuterol Sulfate 8 gm Inhaler (60 puffs) 1 PUFF INHALATION (14:56)
[2023-10-26] MEDS: hydrOXYzine PAM 25 MG Capsule PO (14:57)
[2023-10-26] MEDS: Pantoprazole Sodium 40 MG Tablet PO (14:57)
[2023-10-26] MEDS: Gabapentin 300 MG Capsule PO (14:57)
[2023-10-26] MEDS: hydroCHLOROthiazide 25 MG Tablet PO (15:02)
[2023-10-26] MEDS: Iron Polysaccharide Complex 150 MG CAPSULE PO (15:03)
--- NOTE | 2023-10-26 15:30 | ED.RN ---
Pt provided with medications as requested by patient. While in room pt began conversation regarding previous stay here at [facility] inpatient and being unhappy with that situation. This RN offered patient advocate info and pt stated he spoke with him already. Pt began to attempt to explain why he had been upset but couldn't clarify, became admittedly confused and eventually irrate asking this RN to leave his room. This RN made every attempt to listen to pt complaint for extended period of time however pt was having difficulty understanding. This RN eventually excused herself from the room as pt was not capable of remaining calm.
--- NOTE | 2023-10-26 15:31 | NURSING ---
CALLED [facility], ETA IS WITHIN THE HOUR
== END 2023-10-26 16:24 ==
LOC: ED 05:39
PROVIDERS: Emergency Provider Emergency Medicine; PCP Internal Medicine; Visit Provider Emergency Medicine
DX: R10.30 Lower abdominal pain, unspecified (principal); R45.851 Suicidal ideations; F68.8 Other specified disorders of adult personality and behavior; I10 Essential (primary) hypertension; E78.5 Hyperlipidemia, unspecified; Z79.01 Long term (current) use of 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s; Z79.899 Other long term (current) drug therapy; Z87.891 Personal history of nicotine dependence; Z91.041 Radiographic dye allergy status
CPT/HCPCS: 51702; 70450; 74176; 80048; 80076; 81001; 83690; 84484; 85025; 85610; 87426; 93005; 94640; 96361; 96374; 99285; J7030; A4216

== ENCOUNTER 2023-11-06 11:26 | Outpatient (RCR) | payer MEDICARE, SELFPAY ==
[2023-10-21 12:37] LABS: Absolute Lymphocyte Count 1.08 X10^3/uL (0.83-4.51); Absolute Neutrophil Count 3.2 X10^3/uL (2.0-7.7); Basophil# 0.04 X10^3/uL; Basophil% 0.7 % (0-1); Eosinophil# 0.11 X10^3/uL; Eosinophils% 2.1 % (0-5); Hematocrit 32.6 % (40-54); Hemoglobin 10.5 g/dL (13.0-16.5); Lymphocyte # 1.08 X10^3/ul (0.83-4.51); Lymphocyte % 20.2 % (19-41); Mean Corp Hgb Conc 32.2 g/dL (32-36); Mean Corpuscular Volume 102.5 fL (80-94); Mean Platelet Vol. 9.5 fl (6.2-12.0); Monocyte# 0.85 X10^3/uL; Monocyte% 15.9 % (0-10); NRBC Flagged by Analyzer 0 % (0-5); Neutrophil # 3.23 X10^3/uL (2.7-7.7); Neutrophil % 60.5 % (47-70); Platelet Count 292 K/mm3 (150-450); RBC Distribution Width CV 14.6 % (11.6-14.6); RBC Distribution Width SD 54.2 fl (35.1-43.9); Red Blood Count 3.18 M/mm3 (4.6-6.2); White Blood Count 5.3 K/mm3 (4.4-11.0)
[2023-10-21 13:53] LABS: Bacteria 0 SEEN /hpf (None Seen); Mucous, Urine 0 SEEN /hpf (<or=2+); Red Blood Cells-Urine 0 SEEN /hpf (0-5); White Blood Cells 0 SEEN /hpf (0-5)
[2023-10-21 14:06] LABS: ALB/GLOB Ratio 0.8 RATIO (0.9-2.4); AST(SGOT) 19 U/L (15-37); Alanine Aminotransfer ALT/SGPT 24 U/L (16-61); Albumin, Serum 3.1 g/dL (3.2-5.0); Alkaline Phosphatase 52 U/L (45-117); Anion Gap 7 (5-15); BUN 11 mg/dL (7-18); BUN/Creat Ratio 11.2 RATIO (10-20); Calcium,Total 8.9 mg/dL (8.5-10.1); Chloride 103 mmol/L (98-107); Creatinine, Serum 0.98 mg/dL (0.70-1.30); EST Glomerular Filtration Rate 79 mL/min (>60); Est Glom Filt Rate - Afr Amer 96 mL/min (>60); Globulin 3.9 g/dL (2.2-4.2); Glucose 79 mg/dL (74-106); Potassium 3.9 mmol/L (3.5-5.1); Sodium Level 137 mmol/L (136-145)
[2023-10-21 14:53] LABS: International Normalized Ratio 2.1; Prothrombin Time (Protime)PT. 23.3 SECONDS (11.7-14.9)
[2023-10-21 15:42] LABS: Color, Urine Yellow (Yellow); Glucose, Dipstick Normal (Normal); Ketone-Dipstick Negative (Negative); Leukocyte Esterase-Dipstick Negative /ul (Negative); Nitrite-Dipstick Negative (Negative); Occult Blood-Urine Negative /ul (Negative); Protein-Dipstick Negative (Negative); Urine Bilirubin Dipstick Negative (Negative); Urine Clarity Clear (Clear); Urine Urobilinogen Normal (Normal)
[2023-10-21 15:55] LABS: Squamous Epithelial Cells - UA 0-5 SEEN /hpf (0-5)
[2023-11-06 12:33] LABS: International Normalized Ratio 1.9; Prothrombin Time (Protime)PT. 21.5 SECONDS (11.7-14.9)
== END 2023-11-07 23:59 ==
LOC: BIMLAB 11:26
PROVIDERS: PCP Internal Medicine; Referring Provider Internal Medicine; Visit Provider Internal Medicine
DX: Z79.01 Long term (current) use of 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s (principal); J44.9 Chronic obstructive pulmonary disease, unspecified; R10.9 Unspecified abdominal pain
CPT/HCPCS: 36415; 80053; 81001; 85025; 85610

== ENCOUNTER → 2023-11-25 | Outpatient (CLI) | payer MEDICARE, SELFPAY ==
--- NOTE | 2023-11-25 08:55 | CDU_ITS ---
Reason For Study: Carotid Bruit Rt. Velocities/BP Lt. Velocities/BP Prox CCA 88/9 cm/sec. Prox CCA 77/13 cm/sec. Mid CCA 62/12 cm/sec. Mid CCA 83/14 cm/sec. Dist CCA 63/12 cm/sec. Dist CCA 73/15 cm/sec. Prox ICA 159/28 cm/sec. Prox ICA 96/16 cm/sec. Mid ICA 125/27 cm/sec. Mid ICA 145/28 cm/sec. Dist ICA 124/27 cm/sec. Dist ICA 145/32 cm/sec. Rt. ICA/CCA = 2.6. Lt. ICA/CCA = 1.7. Prox ECA 179/12 cm/sec. Prox ECA 116/11 cm/sec. Rt. Vert. 107/18 cm/sec. Lt. Vert. 21/4 cm/sec. Right Extracranial There is heterogeneous, irregular atherosclerotic plaque noted in the right common carotid artery. There is heterogeneous, irregular atherosclerotic plaque noted in the right internal carotid artery. There is heterogeneous, irregular atherosclerotic plaque noted in the right external carotid artery. Antegrade flow is noted in the right vertebral artery. Left Extracranial There is heterogeneous, smooth atherosclerotic plaque noted in the left common carotid artery. There is heterogeneous, irregular atherosclerotic plaque noted in the left internal carotid artery. There is intimal thickening but no significant atherosclerotic plaque noted in the left external carotid artery. Pre Steal waveform noted Lt Vert A. Procedure Carotid Duplex 44240. This is a Carotid Duplex examination using B-mode, color flow and specral Doppler. Exam performed in department. VL/Carotid Duplex Ultrasound Interpretation Summary Irregular plaque at the proximal right internal carotid artery with 50 to 69% s tenosis Less than 50% stenosis right external carotid artery Irregular plaque at the proximal left internal carotid artery with 50 to 69% st enosis Less than 50% stenosis left external carotid artery Patent antegrade vertebrals bilaterally although there appears to be a presteal waveform noted on the left There is progression of stenosis involving the right internal carotid artery fr om a previous examination of May 31, 2021 Ordering Physician: Hetal Garcia Referring Physician: Hetal Garcia Performed By: Vanna Quintana RDCS, RVT
== END | disposition home or self-care (01) ==
LOC: CVS 08:55
PROVIDERS: PCP Internal Medicine; Referring Provider Physician Assistant Medical; Visit Provider Physician Assistant Medical
DX: R09.89 Other specified symptoms and signs involving the circulatory and respiratory systems (principal)
CPT/HCPCS: 93880

== ENCOUNTER 2023-11-29 09:12 | Outpatient (RCR) | payer MEDICARE, SELFPAY ==
[2023-11-13 09:15] LABS: International Normalized Ratio 2.3; Prothrombin Time (Protime)PT. 24.9 SECONDS (11.7-14.9)
[2023-11-22 13:02] LABS: International Normalized Ratio 1.7; Prothrombin Time (Protime)PT. 20.1 SECONDS (11.7-14.9)
[2023-11-29 12:08] LABS: International Normalized Ratio 3.4; Prothrombin Time (Protime)PT. 33.8 SECONDS (11.7-14.9)
== END 2023-12-08 23:59 ==
LOC: BIMLAB 09:12
PROVIDERS: PCP Internal Medicine; Referring Provider Internal Medicine; Visit Provider Internal Medicine
DX: Z79.01 Long term (current) use of 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s (principal)
CPT/HCPCS: 36415; 85610

== ENCOUNTER 2023-12-10 08:45 | Outpatient (RCR) | payer MEDICARE, SELFPAY ==
[2023-12-10 11:08] LABS: International Normalized Ratio 2.7; Prothrombin Time (Protime)PT. 28.1 SECONDS (11.7-14.9)
[2023-12-10 13:46] LABS: Absolute Lymphocyte Count 2.06 X10^3/uL (0.83-4.51); Absolute Neutrophil Count 3.6 X10^3/uL (2.0-7.7); Basophil# 0.04 X10^3/uL; Basophil% 0.6 % (0-1); Eosinophil# 0.11 X10^3/uL; Eosinophils% 1.7 % (0-5); Hematocrit 39.2 % (40-54); Hemoglobin 12.5 g/dL (13.0-16.5); Lymphocyte # 2.06 X10^3/ul (0.83-4.51); Lymphocyte % 31.2 % (19-41); Mean Corp Hgb Conc 31.9 g/dL (32-36); Mean Corpuscular Hgb 32.1 pg (27.0-32.0); Mean Corpuscular Volume 100.5 fL (80-94); Mean Platelet Vol. 10.1 fl (6.2-12.0); Monocyte# 0.82 X10^3/uL; Monocyte% 12.4 % (0-10); NRBC Flagged by Analyzer 0 % (0-5); Neutrophil # 3.56 X10^3/uL (2.7-7.7); Neutrophil % 53.8 % (47-70); Platelet Count 195 K/mm3 (150-450); RBC Distribution Width CV 15.2 % (11.6-14.6); RBC Distribution Width SD 56.4 fl (35.1-43.9); White Blood Count 6.6 K/mm3 (4.4-11.0)
[2023-12-10 14:25] LABS: ALB/GLOB Ratio 0.9 RATIO (0.9-2.4); AST(SGOT) 21 U/L (15-37); Alanine Aminotransfer ALT/SGPT 22 U/L (16-61); Albumin, Serum 3.5 g/dL (3.2-5.0); Alkaline Phosphatase 53 U/L (45-117); Anion Gap 6 (5-15); BUN 17 mg/dL (7-18); BUN/Creat Ratio 17.9 RATIO (10-20); Calcium,Total 8.9 mg/dL (8.5-10.1); Chloride 107 mmol/L (98-107); Creatinine, Serum 0.95 mg/dL (0.70-1.30); EST Glomerular Filtration Rate 82 mL/min (>60); Est Glom Filt Rate - Afr Amer 100 mL/min (>60); Globulin 3.7 g/dL (2.2-4.2); Glucose 90 mg/dL (74-106); Potassium 3.7 mmol/L (3.5-5.1); Protein, Total 7.2 g/dL (6.4-8.2); Sodium Level 138 mmol/L (136-145)
== END 2024-01-07 23:42 | disposition home or self-care (01) ==
LOC: LAB 08:45
PROVIDERS: PCP Internal Medicine; Referring Provider Internal Medicine; Visit Provider Internal Medicine
DX: Z79.01 Long term (current) use of 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s (principal); R19.5 Other fecal abnormalities; K92.2 Gastrointestinal hemorrhage, unspecified
CPT/HCPCS: 36415; 80053; 85025; 85610

== ENCOUNTER → 2023-12-11 | Outpatient (CLI) | payer MEDICARE, SELFPAY | END | disposition home or self-care (01) | LOC: LAB 08:07 | PROVIDERS: PCP Internal Medicine; Referring Provider Internal Medicine; Visit Provider Internal Medicine | DX: K92.2 Gastrointestinal hemorrhage, unspecified (principal) | CPT/HCPCS: 82274 ==

== ENCOUNTER → 2023-12-12 | Outpatient (CLI) | payer MEDICARE, SELFPAY | END | disposition home or self-care (01) | LOC: LABSPEC 07:07 | PROVIDERS: PCP Internal Medicine; Referring Provider Internal Medicine; Visit Provider Internal Medicine | DX: K92.2 Gastrointestinal hemorrhage, unspecified (principal) | CPT/HCPCS: 82274 ==

== ENCOUNTER → 2023-12-13 | Outpatient (CLI) | payer MEDICARE, SELFPAY | END | disposition home or self-care (01) | LOC: LAB 07:26 → LABSPEC 07:27 | PROVIDERS: PCP Internal Medicine; Referring Provider Internal Medicine; Visit Provider Internal Medicine | DX: K92.2 Gastrointestinal hemorrhage, unspecified (principal) | CPT/HCPCS: 82274 ==

== ENCOUNTER → 2023-12-23 | Outpatient (CLI) | payer MEDICARE, SELFPAY ==
--- NOTE | 2023-12-23 08:58 | [place]OT[place]_ITS ---
Reason For Study: afib Medication HILARY probe 6VT-D (SN [id number]) passed without difficulty. No complications were noted. Cetacaine Topical [place] given X3 orally. Versed 2 mg given slow IVP. Fentanyl 50 mcg given slow IVP. Performed a rapid injection of agitated mix of 9 cc saline and 1cc air to assess for atrial septal defect. Left Ventricle Normal LV size. Left ventricular systolic function is normal. The estimated ejection fraction is 60 %. No regional wall motion abnormalities noted. Right Ventricle Normal RV size. Normal systolic function. The right ventricular wall motion is normal. Atria Normal atrial septum. Bubble contrast study negative for right to left interatrial shunt. Normal left atrium. No thrombus is detected in the left atrial appendage. Normal right atrium. Mitral Valve Mild diffuse mitral valve thickening. Mild (1+) eccentric mitral valve insufficiency. Tricuspid Valve Normal tricuspid valve. Mild tricuspid valve insufficiency. Aortic Valve Trisinus/trileaflet aortic valve. Moderate diffuse aortic valve calcification. Peak aortic valve gradient 87 mmHg. Mean aortic valve gradient 48 mmHg. Severe aortic stenosis. Mild (1+) aortic valve insufficiency. Pulmonic Valve Normal pulmonic valve. Vessels Normal aortic root. Normal arch. The pulmonary artery is normal size. Pulmonary venous flow normal. Pericardium No pericardial effusion. MMode/2D Measurements & Calculations LVOT diam: 2.1 cm LVOT area: 3.4 cm2 Doppler Measurements & Calculations Ao V2 max: 465.7 cm/sec AI max josephine: 360.7 cm/sec LV V1 max: 129.0 cm/sec Ao max P.8 mmHg AI max P.0 mmHg LV V1 max P.7 mmHg Ao V2 mean: 326.8 cm/sec AI dec slope: 171.9 cm/sec2 LV V1 mean P.7 mmHg Ao mean P.9 mmHg AI P1/2t: 614.5 msec LV V1 mean: 89.6 cm/sec Ao V2 VTI: 123.2 cm LV V1 VTI: 31.8 cm AV (velocity ratio): 0.26 ANTONINA(I,D): 0.89 cm2 ANTONINA(V,D): 0.95 cm2 SV(LVOT): 109.8 ml ECHO/Echo Transesophageal (HILARY) Interpretation Summary Normal LV size. Left ventricular systolic function is normal. The estimated ejection fraction is 60 %. Bubble contrast study negative for right to left interatrial shunt. No thrombus is detected in the left atrial appendage. Moderate diffuse aortic valve calcification. Mean aortic valve gradient 48 mmHg. Mild (1+) aortic valve insufficiency. Severe aortic stenosis. Ordering Physician: Hetal Garcia Referring Physician: Hetal Garcia Performed By: Marga Walls RCS
== END | disposition home or self-care (01) ==
LOC: CVS 08:58
PROVIDERS: PCP Internal Medicine; Referring Provider Physician Assistant Medical; Visit Provider Physician Assistant Medical
DX: R06.02 Shortness of breath (principal); I48.91 Unspecified atrial fibrillation; I48.92 Unspecified atrial flutter; I35.0 Nonrheumatic aortic (valve) stenosis
CPT/HCPCS: 93312; 93320; 93325; J7040; A4216

== ENCOUNTER → 2024-01-14 | Outpatient (CLI) | payer MEDICARE, SELFPAY | END | disposition home or self-care (01) | LOC: PSN 06:53 | PROVIDERS: PCP Internal Medicine; Visit Provider Internal Medicine Critical Care Medicine | DX: J44.9 Chronic obstructive pulmonary disease, unspecified (principal) | CPT/HCPCS: 94060; 94726; 94729 ==

== ENCOUNTER → 2024-01-16 | Outpatient (CLI) | payer MEDICARE, SELFPAY ==
[2024-01-16 08:15] VITALS: PULSE 63; PULSE 64; PULSE 71; PULSE 80; PULSE 81; PULSE 83; PULSE 94; O2SAT 96; O2SAT 97; O2SAT 98; O2SAT 99
--- NOTE | 2024-01-17 09:55 | PCM.PSN.6M ---
PSN 6 Minute Walk Test 6 Minute Walk Test 6 Minute Walk Test: 6 Minute Walk Test PSN:6-Minute Walk Test Start: 01/16/24 08:57 Freq: Status: Active Protocol: [id number].[id number] Document 01/16/24 08:15 EW (Rec: 01/16/24 09:03 EW Desktop) 6 Minute Walk Test Date Performed 01/16/24 Time Performed 08:15 Height 6 ft Weight: 212 lb Weight in Pounds 212.0 lbs Assistive device used: None Pre-test Oxygen Delivery Method Room Air Pulse Ox 98 Pulse Rate (60-100) 63 Dyspnea David Scale (0-10) 0 Exertion David Scale (6-20) 6 1st minute Oxygen Delivery Method Room Air Pulse Ox 96 Pulse Rate (60-100) 71 2nd minute Oxygen Delivery Method Room Air Pulse Ox 97 Pulse Rate (60-100) 80 3rd minute Oxygen Delivery Method Room Air Pulse Ox 98 Pulse Rate (60-100) 83 4th minute Oxygen Delivery Method Room Air Pulse Ox 98 Pulse Rate (60-100) 94 5th minute Oxygen Delivery Method Room Air Pulse Ox 99 Pulse Rate (60-100) 81 6th minute Oxygen Delivery Method Room Air Pulse Ox 98 Pulse Rate (60-100) 81 Post-test Oxygen Delivery Method Room Air Pulse Ox 99 Pulse Rate (60-100) 64 Dyspnea David Scale (0-10) 4 Exertion David Scale (6-20) 13 Full Laps Walked 16 Partial Lap, Number of Tiles Walked 35 Total Distance Walked (ft) 979 Interpretation Interpretation: The patient ambulated 979 feet over the course of 6 minutes beginning on room air without assistive devices. Pretesting oxygen saturation was noted to be 98% on room air. With ambulation, the bonny oxygen saturation was 96%. There was no significant exertional oxygen desaturation. Recommendations Recommendations: There is no indication for the use of supplemental oxygen at this time.
== END | disposition home or self-care (01) ==
LOC: PSN 08:06
PROVIDERS: PCP Internal Medicine; Referring Provider Internal Medicine Critical Care Medicine; Visit Provider Internal Medicine Critical Care Medicine
DX: J44.9 Chronic obstructive pulmonary disease, unspecified (principal)
CPT/HCPCS: 94618

== ENCOUNTER → 2024-01-17 | Outpatient (CLI) | payer MEDICARE, SELFPAY ==
[2024-01-17 11:39] LABS: Anion Gap 5 (5-15); BUN 14 mg/dL (7-18); Calcium,Total 9.2 mg/dL (8.5-10.1); Chloride 107 mmol/L (98-107); Creatinine, Serum 0.94 mg/dL (0.70-1.30); EST Glomerular Filtration Rate 84 mL/min (>60); Est Glom Filt Rate - Afr Amer 102 mL/min (>60); Glucose 96 mg/dL (74-106); Potassium 3.6 mmol/L (3.5-5.1); Sodium Level 138 mmol/L (136-145)
== END | disposition home or self-care (01) ==
LOC: LAB 11:07
PROVIDERS: PCP Internal Medicine; Referring Provider Nurse Practitioner Adult Health; Visit Provider Nurse Practitioner Adult Health
DX: I35.0 Nonrheumatic aortic (valve) stenosis (principal)
CPT/HCPCS: 80048

== ENCOUNTER 2024-01-22 08:27 | Outpatient (RCR) | payer MEDICARE, SELFPAY ==
[2024-01-16 10:21] LABS: Hematocrit 42.6 % (40-54); Hemoglobin 14.2 g/dL (13.0-16.5); Mean Corp Hgb Conc 33.3 g/dL (32-36); Mean Corpuscular Hgb 33.3 pg (27.0-32.0); Mean Corpuscular Volume 99.8 fL (80-94); Mean Platelet Vol. 10.9 fl (6.2-12.0); Platelet Count 246 K/mm3 (150-450); RBC Distribution Width CV 14.9 % (11.6-14.6); RBC Distribution Width SD 55.2 fl (35.1-43.9); Red Blood Count 4.27 M/mm3 (4.6-6.2); White Blood Count 5.6 K/mm3 (4.4-11.0)
[2024-01-16 10:28] LABS: International Normalized Ratio 3.4; Prothrombin Time (Protime)PT. 34.4 SECONDS (11.7-14.9)
[2024-01-22 12:52] LABS: International Normalized Ratio 2.9
== END 2024-02-07 23:59 ==
LOC: BIMLAB 08:27
PROVIDERS: PCP Internal Medicine; Referring Provider Internal Medicine; Visit Provider Internal Medicine
DX: Z79.01 Long term (current) use of 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s (principal); I35.0 Nonrheumatic aortic (valve) stenosis
CPT/HCPCS: 36415; 85027; 85610

== ENCOUNTER 2024-03-02 08:40 | Outpatient (RCR) | payer MEDICARE, SELFPAY ==
[2024-02-24 12:20] LABS: International Normalized Ratio 1.9; Prothrombin Time (Protime)PT. 21.5 SECONDS (11.7-14.9)
[2024-03-02 12:26] LABS: International Normalized Ratio 2.4; Prothrombin Time (Protime)PT. 25.6 SECONDS (11.7-14.9)
== END 2024-03-08 23:59 ==
LOC: BIMLAB 08:40
PROVIDERS: PCP Internal Medicine; Referring Provider Internal Medicine; Visit Provider Internal Medicine
DX: Z79.01 Long term (current) use of 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s (principal)
CPT/HCPCS: 36415; 85610

== ENCOUNTER → 2024-04-28 | Outpatient (CLI) | payer MEDICARE, SELFPAY ==
[2024-04-28 12:20] LABS: Prothrombin Time (Protime)PT. 39.2 SECONDS (11.7-14.9)
[2024-04-28 12:27] LABS: International Normalized Ratio 4.1
== END | disposition home or self-care (01) ==
LOC: BIMLAB 11:12
PROVIDERS: PCP Internal Medicine; Visit Provider Internal Medicine
DX: Z79.01 Long term (current) use of 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s (principal)
CPT/HCPCS: 36415; 85610

== ENCOUNTER 2024-05-01 08:56 | Outpatient (RCR) | payer MEDICARE, SELFPAY ==
[2024-04-24 09:33] LABS: International Normalized Ratio 3.8; Prothrombin Time (Protime)PT. 37.5 SECONDS (11.7-14.9)
[2024-05-01 12:28] LABS: International Normalized Ratio 1.9; Prothrombin Time (Protime)PT. 21.4 SECONDS (11.7-14.9)
== END 2024-05-09 23:59 ==
LOC: BIMLAB 08:56
PROVIDERS: PCP Internal Medicine; Referring Provider Internal Medicine; Visit Provider Internal Medicine
DX: Z79.01 Long term (current) use of 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s (principal)
CPT/HCPCS: 36415; 85610

== ENCOUNTER 2024-06-03 09:13 | Outpatient (RCR) | payer MEDICARE, SELFPAY ==
[2024-06-03 10:36] LABS: International Normalized Ratio 2.7; Prothrombin Time (Protime)PT. 28.5 SECONDS (11.7-14.9)
[2024-06-03 10:59] LABS: AST(SGOT) 19 U/L (15-37); Alanine Aminotransfer ALT/SGPT 21 U/L (16-61); Albumin, Serum 3.5 g/dL (3.2-5.0); Alkaline Phosphatase 56 U/L (45-117); Bilirubin, Direct 0.12 mg/dL (0.00-0.30); Cholesterol 164 mg/dL (200); Globulin 3.8 g/dL (2.2-4.2); High Density Lipoprotein 42 mg/dL; Protein, Total 7.3 g/dL (6.4-8.2); Triglycerides 170 mg/dL; Very Low Density Lipoprotein 34 mg/dL (5-40)
[2024-06-03 11:04] LABS: Hemoglobin A1c 5.9 % (3.8-5.6)
== END 2024-06-03 18:00 | disposition home or self-care (01) ==
LOC: LAB 09:13
PROVIDERS: Physician Assistant Medical; PCP Internal Medicine; Referring Provider Internal Medicine; Visit Provider Internal Medicine
DX: Z79.01 Long term (current) use of 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s (principal); E78.5 Hyperlipidemia, unspecified; R73.09 Other abnormal glucose
CPT/HCPCS: 36415; 80061; 80076; 83036; 85610

== ENCOUNTER → 2024-06-09 | Outpatient (CLI) | payer MEDICARE, SELFPAY ==
--- NOTE | 2024-06-09 08:13 | CR.HP_ITS ---
CR - History & Physical General Arrival date:: 06/09/24 Arrival time:: 08:15 Date of Referral:: 05/27/24 Date of CR Evaluation:: 06/09/24 Referring Physician: Dr. Rhodes Primary Diagnosis: Heart valve replacement History of Present Cardiac Event Onset Date Heart valve replacement or repair:: Yes (onset 02/17/24) Medications Ambulatory Orders ?Medication ?Instructions ?Recorded calcium carbonate (Calcium 600) 600 mg PO DAILY SUPPLEMENT 08/24/19 benzonatate 100 mg capsule 100 mg PO BID-TID PRN cough #90 09/19/23 caps zinc sulfate 50 mg zinc (220 mg) 50 mg PO DAILY PRN SUPPLEMENT 09/25/23 capsule albuterol sulfate 90 mcg/actuation 1 inh inhalation Q6H PRN shortness 09/28/23 aerosol inhaler of breath or wheezing #8.5 grams budesonide 160 mcg-glycopyr 9 2 inh inhalation BID Flu 10/11/23 mcg-formot 4.8 mcg/actuation HFA inhaler (JobConvoztri Aerosphere) essential oil 1 drp .Route PRN PRN calming 10/21/23 pantoprazole 40 mg tablet,delayed 40 mg PO DAILY 10/22/23 release ipratropium 0.5 mg-albuterol 3 mg 3 ml inhalation Q6H PRN shortness 11/22/23 (2.5 mg base)/3 mL nebulization of breath or wheezing #90 mL soln Handicap Placard #1 ea 12/09/23 rosuvastatin 20 mg tablet 20 mg PO DAILY CHOLESTEROL #90 12/26/23 tabs warfarin 6 mg tablet 6 mg PO 2XW 04/28/24 hydrochlorothiazide 25 mg tablet 25 mg PO DAILY #60 tabs 05/15/24 warfarin 4 mg tablet 4 mg PO .COMPLEX previous blood 05/15/24 clots #60 tabs gabapentin 300 mg capsule 300 mg PO DAILY NERVE PAIN #90 caps 05/25/24 Allergies Allergies Iodinated Contrast Media (Iodinated Contrast Media - IV Dye) Adverse Reaction (Severe, Verified 06/03/24 08:21) Other bradycardia, hypotension (even with pre-meds) oxycodone Adverse Reaction (Verified 06/03/24 08:21) Other 'OFF THE WALL' Sleep Disorder Evaluation Hx of Sleep Apnea: Yes Do you snore loudly (louder than talking or can be heard through closed doors)?: No Do you often feel tired/ fatigued/ sleepy during daytime?: No Has anyone observed you stop breathing during sleep?: No History of Hypertension (for STOP score): Yes STOP Results: Negative Advanced Directives Advanced Directives Power of County Surveyor: Yes Living Will: Yes Advance Directives Information Provided: Yes Advance Directives on File: Yes DNR Order?:: No Past Medical History Covid-19 Screening Physicial Symptoms Other Clinical Concerns Exposure Risk Pertinent Comorbidities 65 years or older:: Yes Has a serious heart condition:: Yes Past Medical Illness Past Medical History (Updated 06/03/24 @ 08:51 by Hetal ARAMBULA, PA) Hyperlipidemia E78.5 Dark stools R19.5 Generalized anxiety disorder F41.1 GI bleed K92.2 Cough R05.9 Shortness of breath R06.02 Acute sinusitis, unspecified J01.90 Arterial insufficiency I77.1 NGOC- Interpretation Summary Right NGOC 0.85, moderate arterial insufficiency. Doppler/PVR waveforms of the right ankle moderately diminished. Left NGOC 0.91, mild arterial insufficiency. Doppler/PVR waveforms of the left ankle mildly diminished. Orthostasis I95.1 Hypotensive episode I95.9 Recurrent epistaxis R04.0 Lymphadenopathy R59.1 Nonrheumatic aortic (valve) stenosis with insufficiency I35.2 Essential hypertension I10 Health care maintenance Z00.00 Colon cancer screening Z12.11 Oral thrush B37.0 Upper respiratory tract infection J06.9 COVID-19 (07/2021) U07.1 Nail avulsion, toe S91.209A Sinusitis J32.9 Urinary frequency R35.0 Dysuria R30.0 Post-phlebitic syndrome I87.009 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 reflux disease) K21.9 retirement current use of 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 Z79.01 Skin lesion L98.9 Intermittent claudication I73.9 Hernia K46.9 Patient had a [address] for umbilical hernia Carotid artery stenosis I65.29 BPH (benign prostatic hyperplasia) N40.0 Hemorrhoids K64.9 Obesity E66.9 Peripheral neuropathy G62.9 LIZA (obstructive sleep apnea) G47.33 CPAP 9cm Bronchitis J40 Chronic sinusitis J32.9 Hypersomnia G47.10 Past Surgical History Past Surgical History S/P TAVR (transcatheter aortic valve replacement) (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 Surgical History: herniorrhaphy and - Family History Summary Family History Father Lung cancer Uncle Cancer Grandfather Myocardial infarction Grandmother Myocardial infarction Mother Myocardial infarction, Onset Age: 90 Social History Smoking History Smoking Status: Current every day smoker Years Smokin Packs Smoked per Day: 0.5 Hx Tobacco Use: Yes Alcohol Use Alcohol Usage: Yes (socially) Substance Abuse Hx Substance Use: No Occupation Occupation (List type of work in comments):: Retired Hobbies, Recreation, Social Activities Hobbies: Other (crafts, gardening, roman catholic) Recreational Activities: I am able to engage in all my recreational activities Social Environment Status Marital Status: Current Living Arrangements Living Environment:: Spouse Children How many children do you have?: 2 Do any of your children live nearby?: Yes Safety Do you feel safe in your surroundings?: Yes Assistance Do you need any assistance at home?: no Review of Systems Review of Systems Hints Review of Present Symptoms: Reports Shortness of Breath with Exertion, PVD, Angina, Dizziness/Lightheadedness, Fatigue, Appetite - Normal and Sleep - Normal; Denies Shortness of Breath at Rest, Operative Discomfort, Wound Healing, Heart Arrhythmia/Irregularities, Appetite - Special Diet or Sexual Changes Pain Pain Location: lower extremity and other Pain Level: 06/18 Risk Factor Assessment Chief Complaint Chief Complaint: heart valve replacement Vital Signs Pulse Ox: 95 Blood Pressure: 127/76 Pulse Pulse Rate: 52 Hypertension Blood Pressure Sitting - Right Arm: 127/76 Obesity Height: 6 ft Weight:: 222 lb Weight in Pounds: 222.0 lbs Body Mass Index (BMI): 30.1 Nutritional Referral for Obesity: No (declines) Physical Inactivity Physical Inactivity: Recreational activity Risk Stratification Risk Guidelines: Moderate Risk: Risk Factor for Diabetes, Risk Factor for Sedent gerard Lifestyle and Risk Factor for Depression and Highest Risk: Risk Factor for Smoking, Risk Factor for Dyslipidemia, Risk Factor for Obesity and Risk Factor for Hypertension For Smoking Smoking Risk Guidelines For Dyslipidemia Dyslipidemia Risk Guidelines For Diabetes Mellitus Diabetes Risk Guidelines For Obesity/Overweight Obesity/Overweight Risk Guidelines For Hypertension Hypertension Risk Guidelines For Sedentary Lifestyle Sedentary Lifestyle Risk Guidelines For Depression Depression Risk Guidelines Family History Family History Father Lung cancer Uncle Cancer Grandfather Myocardial infarction Grandmother Myocardial infarction Mother Myocardial infarction, Onset Age: 90 Motivation Motivation to Participate On a scale of 1 to 10, how prepared are you to commit to attending program?: 8 What do you see as barriers to successfully being able to complete the program?: nothing What do you see as the benefits of succesfully completing the program? In other words, what do you hope to get out of participating in the program?: more energy Are there issues you are dealing with that will interfere with completing the program?: no Do you have a spouse or signficant other, family or friends who will help support you to complete the program?: yes
[2024-06-09 08:20] VITALS: BP 127/76; PULSE 52; O2SAT 95
--- NOTE | 2024-06-09 08:20 | PCM.CR.ITP ---
Diagnosis General Information Admitting Diagnosis: heart valve replacement Personal Learning Style:: Audio/Visual Barriers to Learning: No Barriers Stage of change r/t lifestyle modifications:: Contemplation Gave educational material for:: Treating Heart Disease, How The Heart Works, What it means to have Heart Disease, How Coronary Artery Disease is Diagnosed, Heart Procedures, What Heart Medications Do, Risk Factors & Modifications, Living an Active Life, Nutrition, Emotions & Heart Disease, Stress Management & Relaxation and Sleep Disorders & Heart Disease Education/Goals Cardiac Rehabilitation Goals Personal Goals: Initial Assessment: Improve energy level, Get back to work, or to resume activities faster, Improve muscle strength and endurance, Improve diet and eating habits (eat healthier) and Control risk factors (learn risk factor modification) Scale for measuring improvement of personal goals Diagnosis & Disease Process Outcomes/Goals: Pt IDs own risk factors & lifestyle modifications by Session 10, Verbalizes symptoms of angina & response by session 3., Pt independently manages and Other Additional Outcomes/Goals: Plan/Interventions: Assist Pt to ID & engage in lifestyle modification to reduce CVD risk, Instruct on individual risk factors, Review symptoms of angina & emergency actions, Review secondary diagnosis & identify educational needs. and Other see comment 30 day Reassessments:: Not Met 30 day Reassessments:: Not Met 30 day Reassessments:: Not Met 30 day Reassessments:: Not Met Final Reassessments:: Not Met Safety Referral to Physical Therapy: No Referral to 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 Frequency: 3x/week for 12 weeks [36 sessions] Intensity: 60-80% of age predicted maximum heart rate reserve Duration: 30 - 45 minutes Current METSs:: 3 Target Heart Rate:: 88-110 Resting Blood Pressure: 127/76 EKG Type: NSR Outcomes & Goals Goals:: Verbalizes understanding of THR, RPE & goal METS by session 6, Documents in home exercise log/reports 30 min aerobic 5 day/wk by DC, Demonstrates accurate pulse taking by DC and Other additional outcome/goals: see below Intervention & Plan Exercise Program Goals: Instruct on personal THR & RPE, Instruct on MET level & personal MET goal, Show patient to take own pulse /validate performance until accurate, Instruct on home exercise and Other additional plan/int Physical Activity Home Exercise Physical Activity - Home Exercise: Safe Exercise, Warm-up, Self-monitoring, Cool-Down, Home Exercise > 30 min Daily and Sitting Time <3 hours/daily Outcomes & Goals Outcomes/Goals: Demonstrates correct Warm-up/exercise Cool-Down (S3) if = 2.5 METs, Verbalizes symptoms of exercise intolerance by Session 3 (S3), Demonstrate safe equipment use (S3) & follows exercise prescrition (6) and Other: See below Intervention & Plan Plan/Intervention: Instruct warm-up & cool-down if exercising at > 2 METs, Instruct on symptoms of exercise intolerance & actions to take, Instruct & monitor on saf, Assess intial functional capacity & safety risk and Other See below Nutrition - Initial Assessment Program Goals Nutrition Program Goals Patient has diagnosis of Hyperlipidemia (ICD E78)?: Yes Visit Date of Eval: 06/09/24 (initial eval ) Cholesterol/Lipids (Other Core Measures) Determine presence & major risk factors that modify LDL goal: Cigarette smoking, Hypertension or hypertensive medication, Low HDL cholesterol <40 mg/dL*, Family history of premature CHD in Male < 55 years: female <65 yearsFa and Age men > 45 years; women >/= 55 years Outcomes/Goals: Pt IDs own risk factors & lifestyle modifications by Session 10, Verbalizes symptoms of angina & response by session 3., Pt independently manages and Other Additional Outcomes/Goals: Intervention/Plan: Advocate for lipid panel cholesterol medication if applicable, Instruct on personal lipid levels & lipid goals/NCEP guidelines, Instruct on cholesterol and Other additional plan/int Diabetes (Other Core Measures) Diabetes Type: Not Applicable Weight Mgt (Other Care) Height: 6 ft Weight:: 222 lb BMI: 30.1 Diagnosis Overweight/Obesity BMI> 30% ICD-10 E66: Yes Diagnosis High BMI/Morbid Obesity BMI> 35% ICD-10 Z68: No Outcomes/Goals: Pt sets, maintains & shows weight loss goal & trend during rehab and Other additional outcomes/goals Intervention/Plan: Instruct on ideal BMI & set weight loss goal w/patient, Assist pt to ID & incorporate diet changes for weight loss by S9, Refer to Structured Weight Loss program as appropriate, Encourage goal of using 250-300dcal per session for weight loss and Other additional plan/interventions Healthy Eating Habits Will attend diet classes:: Yes Outcomes/Goals:: Consume diet rich in vegs,fruits,whole grain/high fiber,fish,lean meat, Limit sat/trans fats,cholesterol & added salts & sugars and Other additional outcome/goals: Intervention/Plan:: Assess current eating habits and Other Additional plan/interventions Education Gave educational materials for:: Signs & symptoms of hypoglycemia, Signs & symptoms of hyperglycemia, Relate diabetes to coronary artery disease and Healthy eating Core - Initial Assessment Visit Date of Eval: 06/09/24 (initial eval ) Medication Compliance Preventative Medication(s):: Statin/lipid and Warfarin/Coumadin H/O mental health issues: depression, anxiety, or addiction?: No Doesn?t believe in the benefits of treatment?: No Believes medications are unnecessary or harmful?: No Has a concern about medication side effects?: No Expresses concern over the cost of medications?: No Outcomes/Goals: Verbalizes medications,desired effect & common side effects @ DC, Pt self-reports following medication regimen, Keeps card in wallet w/medications listed by DC and Other additional outcome/goals: Interventions/plans: Instruct on medication effects & side effects, Review medication list w/patient every two weeks, Instruct importance of taking meds as ordered & assist problem solving and Other additional Tobacco Use Tobacco Use: Cigarettes How many cigarettes do you smoke per day?: 10 Years Smokin Outcomes/Goals: Smoking cessation achieved or maintained by discharge, Identify aids/strategies for achieving smoking cessation by session 6 and Other additional outcome/goals Interventions/plan: Instruct on effects of smoking & provide smoking cessation resource, Assist pt to set quit date & provide encouragement, Assist pt to develop strategies to achieve/maintain quit date, Assist pt w/nicotine replacement & medication for cessation success and Other additional plan/interventions Hypertension Hypertension Diagnosis:: Hypertension ICD-10 I10 Resting Blood Pressure:: 127/76 [employer] Hypertension Guidelines Outcomes/Goals: Able to verbalize/achieve optimal blood pressure <130/80, Incorporates diet changes & exercise for blood pressure control by DC and Other additional outcomes/goals Interventions/plan: Instruct on optimal blood pressure, hypertension & medications, Instruct on effects of sodium, alcohol, stress, exercise &hypertension and Other additional plan/interventions Tobacco Cessation Referral Smoking Cessation Referral:: Yes Individual Education/Counseling:: No Education Schedule Given:: Yes Psychosocial - Initial Assess VIsit Date of Eval: 06/09/24 (initial eval ) History of previous Mental disease:: No Target Goals Target Goals Psychosocial Test Tool Used:: [employer] QOL Cardiac and PHQ-9 Questionnaire phq-9 Severity Referral to Behavioral Health PS - Interventions: Yes: Attend Stress Management Classes Outcomes/Goals: See list Psychosocial Outcomes/Goals:: ID's personal stressors & 2 strategies to manage stress by discharge and Other Additional outcome/goals: Intervention/Plan: See List Interventions/Plan:: Assess stressors,coping strategies & signs of derpression on admission, Instruct/assist pt to develop coping & personal stress Mgt strategies, Refer to Behavioral Health if appropriate, Refer to Physician if appropriate, Instruct patient to recognize signs & symptoms of depression, Instruct patient to recog and Other additional plan/intervention Patient Health Questionnaire PHQ-9 Screening Initial Assessment: 1. Little interest or pleasure in doing things: Several days 2. Feeling down, depressed, or hopeless: Not at all 3. Trouble falling or staying asleep, or sleeping too much: Not at all 4. Feeling tired or having little energy: More than half the days 5. Poor appetite or overeating: Nearly every day 6. Feeling bad about yourself -- or that you are a failure or have let yourself or your family down: Not at all 7. Trouble concentrating on things, such as reading the newspaper or watching television: Not at all 8. Moving or speaking so slowly that other people could have noticed. Or the opposite - being so fidgety or restless that you have been moving around a lot more than usual: Not at all 9. Thoughts that you would be better off , or of hurting yourself in some way: Not at all How difficult have these problems made it for you to do your work, take care of things at home, or get along with other people?: Somewhat difficult Total Score: 6 MARIUSZ-Q SV Test Statements CAD is a disease of the arteries in the heart: True Examples of risk factors for heart disease: True Angina is chest pain or discomfort: True The benefits of resistance training include: True Eating more meat and dairy products: I Don't Know Anti-platelet medications such as aspirin are important: True The only effective way to manage stress: False An exercise warm-up slowly increases heart rate: I Don't Know Prepared, processed foods usually have high sodium: True Depression is common after a heart attack: True The statin medications lower cholesterol: True To control blood pressure, lower the amount of sodium: True If someone gets chest discomfort during walking: False Transfats are partially hydrogenated vegetable oils: True Sleep apnea that is not treated increases the risk: I Don't Know To control cholesterol, one should become a vegetarian: False Someone knows if he/she is exercising at the right level: True Diabetes cannot be prevented with exercise & health eating: False Stress is a large risk for heart attack: True A diet that can help lower blood pressure is rich in: True Total Score Total Correct Responses: 16 Self-Efficacy 6-Item Scale Initial Assessment: We would like to know how confident you are in doing certain activities. Please select your confidence level for: Fatigue Select Number: 10 Physical Discomfort or Pain Select Number: 7 Emotional Distress Select Number: 10 Other Symptoms or Health Problems Select Number: 7 Different Tasks and Activities Select Number: 7 Medication Select Number: 10 Total Score:: 8 Nutrition Survey Nutrition Survey Instructions Scoring Instructions Nutrition Survey Initial: Have you lost >10 lbs over the past 2 months without trying?: No Are you following a special diet at home for diabetes, low fat, or low salt?: No Are you interested in meeting with a dietitian for help understanding your diet?: No Do you eat less than 3 meals a day?: No Do you eat fatty meats (stallings, sausage, ribs, etc), fried foods, desserts, large amounts of salad dressings, margarine, butter, or cheese most days?: Yes Do you have food allergies? [Enter types in comment field]: No Do you eat in restaurants more than 3 times a week?: No Do you season food with salt, seasoning salt, or garlic salt?: Yes Do you used canned, boxed, frozen meals, or soups, seasoning packets?: Yes Total Score:: 3 Exercise - 30-day Assessment Physician Prescribed Exercise Modalities: Treadmill, Schwinn Airdyne AD-7, SciFit Stepper, SciFit Pro-II Ergometer and SciFit Lateral [place] Exercise - 60-day Assessment Physician Prescribed Exercise Modalities: Treadmill, Schwinn Airdyne AD-7, SciFit Stepper, SciFit Pro-II Ergometer and SciFit Lateral [place] Exercise - 90-day Assessment Physician Prescribed Exercise Modalities: Treadmill, Schwinn Airdyne AD-7, SciFit Stepper, SciFit Pro-II Ergometer 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 Exercise - Final/Discharge Physician Prescribed Exercise Modalities: Treadmill, Schwinn Airdyne AD-7, SciFit Stepper, SciFit Pro-II Ergometer and SciFit Lateral [place] Frequency: 3x/week for 12 weeks [36 sessions] Intensity: 60-80% of age predicted maximum heart rate reserve Current METSs:: 3 Target Heart Rate:: 88-110 Nutrition - 30-Day Assessment Weight Mgt (Other Care) Height: 6 ft Weight:: 222 lb BMI: 30.1 Nutrition - 60-Day Assessment Weight Mgt (Other Care) Height: 6 ft Weight:: 222 lb BMI: 30.1 Core - 30-Day Assessment Tobacco Use Years Smokin Core - Final Assessment Hypertension Resting Blood Pressure:: 127/76 [employer] Hypertension Guidelines Core - 60-Day Assessment Hypertension Resting Blood Pressure:: 127/76 [employer] Hypertension Guidelines Psychosocial - 30-Day Assess Target Goals Target Goals Referral to Behavioral Health PS - Interventions: Yes: Attend Stress Management Classes Psychosocial - 60-Day Assess Target Goals Target Goals Referral to Behavioral Health PS - Interventions: Yes: Attend Stress Management Classes Psychosocial - 90-Day Assess Target Goals Target Goals Referral to Behavioral Health PS - Interventions: Yes: Attend Stress Management Classes Psychosocial - Final Assessmen Target Goals Target Goals Referral to Behavioral Health PS - Interventions: Yes: Attend Stress Management Classes Nutrition - 90-Day Assessment Weight Mgt (Other Care) Height: 6 ft Weight:: 222 lb BMI: 30.1 Nutrition - Final Assessment Program Goals Patient has diagnosis of Hyperlipidemia (ICD E78)?: Yes Weight Mgt (Other Care) Height: 6 ft Weight:: 222 lb BMI: 30.1
[2024-06-09 08:29] VITALS: BP 127/76
[2024-06-09 09:10] VITALS: BMI 30.1
[2024-06-09 09:12] VITALS: BMI 30.1
== END | disposition home or self-care (01) ==
LOC: CR 08:06
PROVIDERS: PCP Internal Medicine; Referring Provider Internal Medicine Cardiovascular Disease; Visit Provider Internal Medicine Cardiovascular Disease
DX: Z95.2 Presence of prosthetic heart valve (principal)

== ENCOUNTER 2024-07-03 10:32 | Outpatient (RCR) | payer MEDICARE, SELFPAY ==
[2024-06-09 09:12] VITALS: BMI 30.1
[2024-06-19 12:33] LABS: International Normalized Ratio 3.8; Prothrombin Time (Protime)PT. 36.9 SECONDS (11.7-14.9)
[2024-06-22 12:28] LABS: International Normalized Ratio 2.8; Prothrombin Time (Protime)PT. 29.4 SECONDS (11.7-14.9)
[2024-06-24 12:20] LABS: International Normalized Ratio 3.2; Prothrombin Time (Protime)PT. 32.8 SECONDS (11.7-14.9)
[2024-06-24 12:22] LABS: Absolute Lymphocyte Count 1.55 X10^3/uL (0.83-4.51); Absolute Neutrophil Count 3.1 X10^3/uL (2.0-7.7); Basophil# 0.04 X10^3/uL; Basophil% 0.7 % (0-1); Eosinophil# 0.13 X10^3/uL; Eosinophils% 2.3 % (0-5); Lymphocyte # 1.55 X10^3/ul (0.83-4.51); Mean Corp Hgb Conc 33.3 g/dL (32-36); Mean Corpuscular Hgb 33.5 pg (27.0-32.0); Mean Corpuscular Volume 100.5 fL (80-94); Mean Platelet Vol. 10.2 fl (6.2-12.0); Monocyte% 12.6 % (0-10); NRBC Flagged by Analyzer 0 % (0-5); Platelet Count 145 K/mm3 (150-450); RBC Distribution Width CV 14.5 % (11.6-14.6); Red Blood Count 4.18 M/mm3 (4.6-6.2); White Blood Count 5.5 K/mm3 (4.4-11.0)
[2024-06-24 12:49] LABS: Anion Gap 6 (5-15); BUN 13 mg/dL (7-18); BUN/Creat Ratio 12.5 RATIO (10-20); Calcium,Total 9.2 mg/dL (8.5-10.1); Chloride 107 mmol/L (98-107); Creatinine, Serum 1.04 mg/dL (0.70-1.30); EST Glomerular Filtration Rate 74 mL/min (>60); Est Glom Filt Rate - Afr Amer 90 mL/min (>60); Glucose 110 mg/dL (74-106); Potassium 4.1 mmol/L (3.5-5.1); Sodium Level 140 mmol/L (136-145)
[2024-06-29 12:29] LABS: International Normalized Ratio 1.8
[2024-07-03 11:37] LABS: International Normalized Ratio 2.8; Prothrombin Time (Protime)PT. 29.3 SECONDS (11.7-14.9)
== END 2024-07-03 18:00 | disposition home or self-care (01) ==
LOC: LAB 10:32
PROVIDERS: PCP Internal Medicine; Referring Provider Internal Medicine; Visit Provider Internal Medicine
DX: Z79.01 Long term (current) use of 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s (principal); I10 Essential (primary) hypertension
CPT/HCPCS: 36415; 80048; 85025; 85610

== ENCOUNTER 2024-07-08 09:15 | Outpatient (RCR) | payer MEDICARE, SELFPAY ==
[2024-06-09 09:12] VITALS: BMI 30.1
--- NOTE | 2024-07-09 13:34 | PCM.CR.ITP ---
Exercise - Initial Assessment Visit Session #:: 13 Physician Prescribed Exercise Modalities: Treadmill, SciFit Stepper and SciFit Lateral Design Engineering Specialist Nutrition - Initial Assessment Weight Mgt (Other Care) Height: 6 ft Weight:: 219 lb BMI: 29.7 Core - Initial Assessment Tobacco Use Years Smokin Psychosocial - Initial Assess Target Goals Target Goals Referral to Behavioral Health PS - Interventions: Yes: Attend Stress Management Classes Nutrition Survey Nutrition Survey Instructions Scoring Instructions Exercise - 30-day Assessment Visit Date of Eval: 07/09/24 Session #:: 13 Physician Prescribed Exercise Modalities: Treadmill, SciFit Stepper and SciFit Lateral Design Engineering Specialist Frequency: 3x/week for 12 weeks [36 sessions] Intensity: 60-80% of age predicted maximum heart rate reserve Duration: 30 - 45 minutes Current METSs:: 2.9 Target Heart Rate:: 88-110 Current RPE:: 12-13 Maximum Excercise HR:: 91 Resting Blood Pressure: 148/70 Maximum Exercise Blood Pressure: 148/70 EKG Type: SB-NSR with rare pac's, pvc. One run of ectopic atrial tachycardia. Outcomes & Goals Goals:: Verbalizes understanding of THR, RPE & goal METS by session 6, Documents in home exercise log/reports 30 min aerobic 5 day/wk by DC, Demonstrates accurate pulse taking by DC and Other additional outcome/goals: see below Intervention & Plan Exercise Program Goals: Instruct on personal THR & RPE, Instruct on MET level & personal MET goal, Show patient to take own pulse /validate performance until accurate, Instruct on home exercise and Other additional plan/int 30-day Reassessments 30 day Reassessments:: Progressing Reassessment Notes & Comments:: RPE explained to pt. Pt is able to demonstrate understanding. Physical Activity Home Exercise Physical Activity - Home Exercise: Safe Exercise, Warm-up, Self-monitoring, Cool-Down, Home Exercise > 30 min Daily and Sitting Time <3 hours/daily Outcomes & Goals Outcomes/Goals: Demonstrates correct Warm-up/exercise Cool-Down (S3) if = 2.5 METs, Verbalizes symptoms of exercise intolerance by Session 3 (S3), Demonstrate safe equipment use (S3) & follows exercise prescrition (6) and Other: See below Intervention & Plan Plan/Intervention: Instruct warm-up & cool-down if exercising at > 2 METs, Instruct on symptoms of exercise intolerance & actions to take, Instruct & monitor on saf, Assess intial functional capacity & safety risk and Other See below 30-day Reassessments 30 day Reassessments:: Progressing Reassessment Notes & Comments:: Exercise equipment function and safety explained to the pt. Pt is able to demonstrate understanding. Exercise - 60-day Assessment Physician Prescribed Exercise Modalities: Treadmill, SciFit Stepper and SciFit Lateral Design Engineering Specialist Exercise - 90-day Assessment Physician Prescribed Exercise Modalities: Treadmill, SciFit Stepper and SciFit Lateral Design Engineering Specialist Exercise - Final/Discharge Physician Prescribed Exercise Modalities: Treadmill, SciFit Stepper and SciFit Lateral [place] Nutrition - 30-Day Assessment Program Goals Nutrition Program Goals Patient has diagnosis of Hyperlipidemia (ICD E78)?: Yes Visit Date of Eval: 07/09/24 Session #:: 13 Cholesterol/Lipids (Other Core Measures) Determine presence & major risk factors that modify LDL goal: Cigarette smoking, Hypertension or hypertensive medication, Low HDL cholesterol <40 mg/dL*, Family history of premature CHD in Male < 55 years: female <65 yearsFa and Age men > 45 years; women >/= 55 years Outcomes/Goals: Pt IDs own risk factors & lifestyle modifications by Session 10, Verbalizes symptoms of angina & response by session 3., Pt independently manages and Other Additional Outcomes/Goals: Intervention/Plan: Advocate for lipid panel cholesterol medication if applicable, Instruct on personal lipid levels & lipid goals/NCEP guidelines, Instruct on cholesterol and Other additional plan/int 30-day Reassessments:: Progressing Reassessment Notes & Comments:: Risk factors and steps to minimize risk factors explained to pt. Pt demonstrates understanding. Diabetes (Other Core Measures) Diabetes Type: Not Applicable Weight Mgt (Other Care) Height: 6 ft Weight:: 219 lb BMI: 29.7 Diagnosis Overweight/Obesity BMI> 30% ICD-10 E66: No Diagnosis High BMI/Morbid Obesity BMI> 35% ICD-10 Z68: No Outcomes/Goals: Pt sets, maintains & shows weight loss goal & trend during rehab and Other additional outcomes/goals Intervention/Plan: Instruct on ideal BMI & set weight loss goal w/patient, Assist pt to ID & incorporate diet changes for weight loss by S9, Refer to Structured Weight Loss program as appropriate, Encourage goal of using 250-300dcal per session for weight loss and Other additional plan/interventions 30 day Reassessments:: Progressing Reassessment Notes & Comments:: Pt has lost 4 lbs since 06/12/24. Pt is encouraged to continue to work towards his goals. Pt is to attend nutrition class next week. Healthy Eating Habits Will attend diet classes:: Yes Outcomes/Goals:: Consume diet rich in vegs,fruits,whole grain/high fiber,fish,lean meat, Limit sat/trans fats,cholesterol & added salts & sugars and Other additional outcome/goals: Intervention/Plan:: Assess current eating habits and Other Additional plan/interventions 30-day Reassessments:: Progressing Reassessment Notes & Comments:: Pt is to attend nutrition class next week. Ptis encouraged to meet with on air announcer 1 on 1. Education Gave educational materials for:: Signs & symptoms of hypoglycemia, Signs & symptoms of hyperglycemia, Relate diabetes to coronary artery disease and Healthy eating Nutrition - 60-Day Assessment Weight Mgt (Other Care) Height: 6 ft Weight:: 219 lb BMI: 29.7 Core - 30-Day Assessment Visit Date of Eval: 07/09/24 Session #:: 13 Medication Compliance Preventative Medication(s):: Statin/lipid and Warfarin/Coumadin H/O mental health issues: depression, anxiety, or addiction?: No Doesn?t believe in the benefits of treatment?: No Believes medications are unnecessary or harmful?: No Has a concern about medication side effects?: No Expresses concern over the cost of medications?: No Outcomes/Goals: Verbalizes medications,desired effect & common side effects @ DC, Pt self-reports following medication regimen, Keeps card in wallet w/medications listed by DC and Other additional outcome/goals: Interventions/plans: Instruct on medication effects & side effects, Review medication list w/patient every two weeks, Instruct importance of taking meds as ordered & assist problem solving and Other additional 30-day Reassessments:: Progressing Reassessment Notes & Comments:: Pt is encouraged to take his meds as prescribed by his physician. Tobacco Use Tobacco Use: Cigarettes How many cigarettes do you smoke per day?: 10 Years Smokin Outcomes/Goals: Smoking cessation achieved or maintained by discharge, Identify aids/strategies for achieving smoking cessation by session 6 and Other additional outcome/goals Interventions/plan: Instruct on effects of smoking & provide smoking cessation resource, Assist pt to set quit date & provide encouragement, Assist pt to develop strategies to achieve/maintain quit date, Assist pt w/nicotine replacement & medication for cessation success and Other additional plan/interventions 30-day Reassessments:: Progressing Reassessment Notes & Comments:: Pt is referred to smoking cessation counseling. Hypertension Hypertension Diagnosis:: Hypertension ICD-10 I10 Resting Blood Pressure:: 148/70 [place] [employer] Hypertension Guidelines Peak Exercise Blood Pressure:: 148/70 Outcomes/Goals: Able to verbalize/achieve optimal blood pressure <130/80, Incorporates diet changes & exercise for blood pressure control by DC and Other additional outcomes/goals Interventions/plan: Instruct on optimal blood pressure, hypertension & medications, Instruct on effects of sodium, alcohol, stress, exercise &hypertension and Other additional plan/interventions 30 day Reassessments:: Progressing Reassessment Notes & Comments:: Will continue to monitor pt's bp's. Will send report to pt's physician if pressures continue to be elevated. Tobacco Cessation Referral Smoking Cessation Referral:: Yes Individual Education/Counseling:: No Education Schedule Given:: No Psychosocial - 30-Day Assess VIsit Date of Eval: 07/09/24 Session #:: 13 History of previous Mental disease:: No Target Goals Target Goals Psychosocial Test Tool Used:: [employer] QOL Cardiac and PHQ-9 Questionnaire phq-9 Severity Referral to Behavioral Health PS - Interventions: Yes: Attend Stress Management Classes Outcomes/Goals: See list Psychosocial Outcomes/Goals:: ID's personal stressors & 2 strategies to manage stress by discharge and Other Additional outcome/goals: Intervention/Plan: See List Interventions/Plan:: Assess stressors,coping strategies & signs of derpression on admission, Instruct/assist pt to develop coping & personal stress Mgt strategies, Refer to Behavioral Health if appropriate, Refer to Physician if appropriate, Instruct patient to recognize signs & symptoms of depression, Instruct patient to recog and Other additional plan/intervention 30-day Reassessments: 30 day Reassessments:: Progressing Reassessment Notes & Comments:: Pt denies any psychosocial issues at this time. Will continue to monitor. Psychosocial - 60-Day Assess Target Goals Target Goals Referral to Behavioral Health PS - Interventions: Yes: Attend Stress Management Classes Outcomes/Goals: See list Psychosocial Outcomes/Goals:: ID's personal stressors & 2 strategies to manage stress by discharge and Other Additional outcome/goals: Psychosocial - 90-Day Assess Target Goals Target Goals Referral to Behavioral Health PS - Interventions: Yes: Attend Stress Management Classes Psychosocial - Final Assessmen Target Goals Target Goals Referral to Behavioral Health PS - Interventions: Yes: Attend Stress Management Classes Nutrition - 90-Day Assessment Weight Mgt (Other Care) Height: 6 ft Weight:: 219 lb BMI: 29.7 Nutrition - Final Assessment Weight Mgt (Other Care) Height: 6 ft Weight:: 219 lb BMI: 29.7
[2024-07-09 13:54] VITALS: BP 148/70; BMI 29.7
== END 2024-07-09 23:59 ==
LOC: CR 09:15
PROVIDERS: PCP Internal Medicine; Referring Provider Internal Medicine Cardiovascular Disease; Visit Provider Internal Medicine Cardiovascular Disease
DX: Z95.2 Presence of prosthetic heart valve (principal); I10 Essential (primary) hypertension; I35.0 Nonrheumatic aortic (valve) stenosis; J44.9 Chronic obstructive pulmonary disease, unspecified; G47.33 Obstructive sleep apnea (adult) (pediatric)
CPT/HCPCS: 93798

== ENCOUNTER 2024-07-25 08:37 | Emergency (ER) | payer MEDICARE, SELFPAY ==
[2024-07-25 08:00] VITALS: BMI 29.7
[2024-07-25 08:38] VITALS: BP 151/79; PULSE 60; RESP 20; TEMP 36.4; O2SAT 95; O2SAT 97; BMI 31.1
[2024-07-25 08:42] VITALS: BP 151/79; PULSE 55; RESP 18; TEMP 36.4; O2SAT 96
[2024-07-25] MEDS: Famotidine 20 MG Tablet PO (09:51)
--- NOTE | 2024-07-25 09:52 | EX.ED.DYSGE1 ---
HPI History of Present Illness Chief Complaint: Rash Narrative Narrative: Patient is a very pleasant 73-year-old male who is presenting by EMS today with chief complaint of allergic reaction, urticaria from a urgent care. Patient wears CPAP at nighttime. Patient sometimes has cough and congestion at nighttime from his CPAP. Patient took a few Sudafed this morning. Patient is taking the same Sudafed multiple times in the past. Patient approxi-30 minutes after he took medication, develop with itching and urticaria and rash. Patient went to the urgent care. Patient was evaluated, it was noted that patient's oxygen level was 89 to 90%. Patient had some nasal congestion. Patient states he also has a mild to moderate headache to the top of his head and the back of his head, pain headache. Patient does often get headaches, this is not acute or new. Patient despite having lower oxygen at the urgent care, he does not feel short of breath. EMS was called at the urgent care and patient was brought to the ER. IV was attempted, unsuccessful. Patient was given IM injection of Benadryl 50 mg and brought to the ER. Patient is not hypoxic in the ER, he is sitting with room air. Patient also states that the rash urticaria has dissipated completely, patient's diffuse itching is almost completely resolved as well. Patient has nothing new to eat or drink, no new solutions, soaps, shampoos, products, nothing the patient can recall that may have caused this reaction. Patient did take the Sudafed this morning, however patient has the box of Sudafed with him, he is taken over half the box previously with no reactions. Patient looks well, no nausea or vomiting. No airway impedance. No angioedema. No acute complaints. 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 Skin lesion Intermittent claudication Hernia Carotid artery stenosis BPH (benign prostatic hyperplasia) Hemorrhoids Obesity Peripheral neuropathy LIZA (obstructive sleep apnea) Bronchitis Chronic sinusitis Hypersomnia Home Medications ?Medication ?Instructions ?Recorded ?Last Taken ?Type calcium carbonate (Calcium 600) 600 mg PO DAILY SUPPLEMENT 08/24/19 12/23/23 History benzonatate 100 mg capsule 100 mg PO BID-TID PRN cough #90 09/19/23 10/25/23 Rx caps zinc sulfate 50 mg zinc (220 mg) 50 mg PO DAILY PRN SUPPLEMENT 09/25/23 Unknown History capsule albuterol sulfate 90 mcg/actuation 1 inh inhalation Q6H PRN shortness 09/28/23 10/25/23 Rx aerosol inhaler of breath or wheezing #8.5 grams budesonide 160 mcg-glycopyr 9 2 inh inhalation BID Flu 10/11/23 12/23/23 History mcg-formot 4.8 mcg/actuation HFA inhaler (Breztri Aerosphere) essential oil 1 drp .Route PRN PRN calming 10/21/23 Unknown History pantoprazole 40 mg tablet,delayed 40 mg PO DAILY 10/22/23 10/25/23 History release ipratropium 0.5 mg-albuterol 3 mg 3 ml inhalation Q6H PRN shortness 11/22/23 Unknown Rx (2.5 mg base)/3 mL nebulization of breath or wheezing #90 mL soln Handicap Placard #1 ea 12/09/23 Unknown Rx rosuvastatin 20 mg tablet 20 mg PO DAILY CHOLESTEROL #90 12/26/23 Unknown Rx tabs warfarin 6 mg tablet 6 mg PO MO 04/28/24 Unknown History hydrochlorothiazide 25 mg tablet 25 mg PO DAILY #60 tabs 05/15/24 Unknown Rx warfarin 4 mg tablet 4 mg PO .COMPLEX previous blood 05/15/24 Unknown Rx clots #60 tabs gabapentin 300 mg capsule 300 mg PO DAILY NERVE PAIN #90 caps 05/25/24 Unknown Rx hydroxyzine pamoate 25 mg capsule 50 mg (2 x 25 mg) PO TID PRN PRN 07/25/24 Unknown Rx Anxiety #30 CAPSULES Allergy/AdvReac Type Severity Reaction Status Date / Time pseudoephedrine (From Allergy Severe Rash Verified 07/25/24 08:45 Sudafed) Iodinated Contrast Media AdvReac Severe Other Verified 07/25/24 08:45 (Iodinated Contrast Media - IV Dye) oxycodone AdvReac Other Verified 07/25/24 08:45 Family History Father Lung cancer Uncle Cancer Grandfather Myocardial infarction Grandmother Myocardial infarction Mother Myocardial infarction, Onset Age: 90 Surgical History S/P TAVR (transcatheter aortic valve replacement) (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) History of transurethral resection of prostate (~01/2020) History of wisdom tooth extraction History of arthroscopy of left knee Status post hammer toe correction History of nasal polypectomy History of umbilical hernia repair History of back surgery Social History Smoking Status: Current every day smoker tobacco type: cigarettes Tobacco: How many years used: 50 second hand exposure: Yes quit status: considering quitting alcohol intake: current alcohol intake frequency: holidays/special occasions only substance use type: does not use caffeine: Yes Type: coffee Number of servings: 2 and tea Number of servings: 1 what type of physical activity do you participate in: none ROS ROS ED ROS Narrative REVIEW OF SYSTEMS: Unless otherwise stated in this report the patient's positive and negative responses for review of systems for constitutional, eyes, ENT, cardiovascular, respiratory, gastrointestinal, neurological, , musculoskeletal, and integument systems and related systems to the presenting problem are either stated in the history of present illness or were not pertinent or were negative for the symptoms and/or complaints related to the presenting medical problem. EXAM Physical Exam Narrative Exam Narrative: Vital signs reviewed and patient is not hypoxic. General: The patient appears well and in no apparent distress. Patient is resting comfortably on cart. Not toxic, lethargic, or listless. Skin: Warm, dry, no pallor noted. There is no rash noted. Patient had been here for approximately 3040 minutes before is able to see and evaluate the patient. Patient's urticarial rash is completely dissipated. Patient has minimal itching. Patient has no angioedema. Head: Normocephalic, atraumatic Eye: Normal conjunctiva, no drainage, EOMI. PERRL. Ears, Nose, Mouth, and Throat: oral mucosa is moist. Nares patent. Mouth without vesicles. Patient has clear drainage to the posterior pharynx, no unilateral swelling. No angioedema. Airway patent and open. No difficulty breathing. No stridor. Cardiovascular: Regular Rate and Rhythm, no murmurs, gallops, or rubs Respiratory: Patient is in no distress, no accessory muscle use, lungs are clear to auscultation, no wheezing, rales or rhonchi Back: non-tender, no CVA tenderness bilaterally to percussion. NO CTLS midline or paraspinal tenderness to palpation. GI: Soft, obese, no rash noted. No tenderness to palpation, no masses appreciated. No rebound, guarding, or rigidity noted. Musculoskeletal: The patient has full range of motion of all extremities and joints with no difficulty. Patient has no motor, no sensory deficits. Neurological: A&O x4, normal speech, no focal neurological deficits. Psychiatric: Cooperative Const Vital Signs: 07/25/24 08:38 07/25/24 08:42 Temperature 97.6 F L 97.6 F L Temperature Source Oral Oral Pulse Rate 60 55 L Respiratory Rate 20 H 18 Blood Pressure 151/79 H 151/79 H Blood Pressure Mean 103 103 Pulse Ox 97 96 Oxygen Delivery Method Room Air Room Air MDM MDM MDM Narrative Medical decision making narrative: Patient was given Benadryl 50 mg IM from EMS staff. Patient was given 20 mg of Pepcid in the ER along with Tylenol for headache. Patient's headache was not the worse headache of her life, not sudden onset, not thunderclap in nature. Education of Benadryl, Claritin or Zyrtec was done at bedside and discharge paperwork. Patient was given Pepcid in the ER, and I will take another 1 today. Patient says he just recently had cortisone injections on , questionable whether that is related to his symptoms or not. Patient also has had right cataract surgery previously, patient is due to have left cataract surgery on Saturday. He is currently on steroid drops for his left eye, he does not want to be placed on steroids orally and I agree. Strict return precautions were discussed at bedside and discharge paper. No question at discharge Discharge Plan Triage Chief Complaint: Rash ED Provider: Yazan Rodrigues Dx/Rx/DC Orders Clinical Impression: Allergic reaction, Pruritus Instructions: Allergy Medicines: [id number], ED General Allergic Reactions Prescriptions: New hydroxyzine pamoate 25 mg capsule 50 mg PO TID PRN PRN (Reason: Anxiety) Qty: 30 0RF No Action calcium carbonate [Calcium 600] 600 mg calcium (1,500 mg) tablet 600 mg PO DAILY pantoprazole 40 mg tablet,delayed release (DR/EC) 40 mg PO DAILY Patient Comments: takes prn now essential oil 1 drp oil 1 drp .Route PRN PRN (Reason: calming) Rx Instructions: 1 drp as needed PRN; rub on skin prn jojoba, smoking sensation craving relief ipratropium-albuterol 0.5 mg-3 mg(2.5 mg base)/3 mL solution for nebulization 3 ml inhalation Q6H PRN (Reason: shortness of breath or wheezing) Qty: 90 3RF zinc sulfate 50 mg zinc (220 mg) capsule 50 mg PO DAILY PRN (Reason: SUPPLEMENT) Patient Comments: pt states takes zinc periodically albuterol sulfate 90 mcg/actuation HFA aerosol inhaler 1 inh inhalation Q6H PRN (Reason: shortness of breath or wheezing) Qty: 8.5 2RF Breztri Aerosphere 160-9-4.8 mcg/actuation HFA aerosol inhaler 2 inh INHALATION BID Patient Comments: INHALE 2 (TWO) INHALATION EVERY MORNING and EVERY EVENING benzonatate 100 mg capsule 100 mg PO BID-TID PRN (Reason: cough) Qty: 90 3RF (DME) Handicap Placard See Rx Instructions .ROUTE .MEDSUPPLY Qty: 1 0RF Rx Instructions: As directed, length of time 3 years rosuvastatin 20 mg tablet 20 mg PO DAILY Qty: 90 3RF warfarin 6 mg tablet 6 mg PO MO Rx Instructions: 04/28/24 :Hold tomorrow and next. Resume on Saturday but take 4 mg. Repeat INR on Saturday. hydrochlorothiazide 25 mg tablet 25 mg PO DAILY Qty: 60 1RF warfarin 4 mg tablet 4 mg PO .COMPLEX Qty: 60 1RF Protocol: Dose Management Protocol Text: Patient Instructed to take: warfarin 4 mg (1 Tab) on [place], [place], , , [place], [place] warfarin 4 mg (1.5 Tabs) on [place] Rx Instructions: Take as directed gabapentin 300 mg capsule 300 mg PO DAILY Qty: 90 1RF Primary Care Provider: Wade Padilla Referrals: Wade Padilla MD [Primary Care Provider] - Activity Restrictions/Additional Instructions: Use [id number] either Claritin, Zyrtec, or Benadryl. You are given a dose of Benadryl this morning by EMS. Did not repeat Benadryl for 6 hours after the initial dose. If Benadryl is making you tired, use either Claritin or Zyrtec. You can take Claritin or Zyrtec in the morning and at nighttime. Use Pepcid [id number] 20 mg, take this twice a day, you are given 1 dose in the ER today. Take your second dose this evening. Use Vistaril as needed for itching or burning, this might make you slightly sleepy. Any other acute concerns return back to the ER, other follow-up with PCP as needed. Enjoy your event tonight!!!!!!!!!!!!! Print Language: Green[place]ic Disposition Disposition: Home, Self Care
[2024-07-25 09:53] VITALS: BP 145/75; PULSE 53; RESP 18; TEMP 36.1; O2SAT 98
[2024-07-25 09:54] VITALS: BP 145/75; PULSE 59; RESP 18; TEMP 36.1; O2SAT 97
== END 2024-07-25 09:59 | disposition home or self-care (01) ==
PROVIDERS: Emergency Provider Emergency Medicine; PCP Internal Medicine; Visit Provider Emergency Medicine
DX: L50.0 Allergic urticaria (principal); I10 Essential (primary) hypertension; E78.5 Hyperlipidemia, unspecified; F17.210 Nicotine dependence, cigarettes, uncomplicated; Z79.899 Other long term (current) drug therapy; Z86.16 Personal history of COVID-19
CPT/HCPCS: 99284

== ENCOUNTER 2024-08-05 09:15 | Outpatient (RCR) | payer MEDICARE, SELFPAY ==
[2024-07-09 20:46] VITALS: BMI 30.1
[2024-07-10 00:49] VITALS: BP 148/70
--- NOTE | 2024-08-07 07:20 | PCM.CR.ITP ---
Exercise - Initial Assessment Physician Prescribed Exercise Modalities: Treadmill, Schwinn Airdyne AD-7 and SciFit Stepper Nutrition - Initial Assessment Weight Mgt (Other Care) Height: 6 ft Weight:: 216 lb BMI: 29.2 Core - Initial Assessment Hypertension Resting Blood Pressure:: 136/72 [place] [employer] Hypertension Guidelines Psychosocial - Initial Assess Target Goals Target Goals Referral to Behavioral Health PS - Interventions: Yes: Attend Stress Management Classes Patient Health Questionnaire PHQ-9 Screening 60-Day Re-eval Assessment: 1. Little interest or pleasure in doing things: Several days 2. Feeling down, depressed, or hopeless: Not at all 3. Trouble falling or staying asleep, or sleeping too much: Not at all 4. Feeling tired or having little energy: More than half the days 5. Poor appetite or overeating: Nearly every day 6. Feeling bad about yourself -- or that you are a failure or have let yourself or your family down: Not at all 7. Trouble concentrating on things, such as reading the newspaper or watching television: Not at all 8. Moving or speaking so slowly that other people could have noticed. Or the opposite - being so fidgety or restless that you have been moving around a lot more than usual: Not at all 9. Thoughts that you would be better off , or of hurting yourself in some way: Not at all How difficult have these problems made it for you to do your work, take care of things at home, or get along with other people?: Somewhat difficult Total Score: 6 Self-Efficacy 6-Item Scale 60-Day Re-eval Assessment: We would like to know how confident you are in doing certain activities. Please select your confidence level for: Fatigue Select Number: 10 Physical Discomfort or Pain Select Number: 7 Emotional Distress Select Number: 10 Other Symptoms or Health Problems Select Number: 7 Different Tasks and Activities Select Number: 7 Medication Select Number: 10 Total Score:: 8 Nutrition Survey Nutrition Survey Instructions Scoring Instructions Exercise - 30-day Assessment Physician Prescribed Exercise Modalities: Treadmill, Schwinn Airdyne AD-7 and SciFit Stepper Exercise - 60-day Assessment Visit Date of Eval: 08/07/24 Session #:: 22 Physician Prescribed Exercise Modalities: Treadmill, Schwinn Airdyne AD-7 and SciFit Stepper Frequency: 2x/week for 18 weeks [36 sessions] and 3x/week for 12 weeks [36 sessions] Intensity: 60-80% of age predicted maximum heart rate reserve Duration: 30 - 45 minutes Current METSs:: 4 Target Heart Rate:: 88-110 Current RPE:: 12-13 Maximum Excercise HR:: 95 Resting Blood Pressure: 150/72 Maximum Exercise Blood Pressure: 160/74 EKG Type: NSR to ST with rare pacs, pvc Outcomes & Goals Goals:: Verbalizes understanding of THR, RPE & goal METS by session 6, Documents in home exercise log/reports 30 min aerobic 5 day/wk by DC, Demonstrates accurate pulse taking by DC and Other additional outcome/goals: see below Intervention & Plan Exercise Program Goals: Instruct on personal THR & RPE, Instruct on MET level & personal MET goal, Show patient to take own pulse /validate performance until accurate, Instruct on home exercise and Other additional plan/int 30-day Reassessments 30 day Reassessments:: Progressing Reassessment Notes & Comments:: THR explained in exercise class. Pt demonstrates understanding Physical Activity Home Exercise Physical Activity - Home Exercise: Safe Exercise, Warm-up, Self-monitoring, Cool-Down, Home Exercise > 30 min Daily and Sitting Time <3 hours/daily Outcomes & Goals Outcomes/Goals: Demonstrates correct Warm-up/exercise Cool-Down (S3) if = 2.5 METs, Verbalizes symptoms of exercise intolerance by Session 3 (S3), Demonstrate safe equipment use (S3) & follows exercise prescrition (6) and Other: See below Intervention & Plan Plan/Intervention: Instruct warm-up & cool-down if exercising at > 2 METs, Instruct on symptoms of exercise intolerance & actions to take, Instruct & monitor on saf, Assess intial functional capacity & safety risk and Other See below 30-day Reassessments 30 day Reassessments:: Progressing Reassessment Notes & Comments:: cool down explained and demonstrated. Pt is able to return demonstration. Exercise - 90-day Assessment Physician Prescribed Exercise Modalities: Treadmill, Schwinn Airdyne AD-7 and SciFit Stepper Exercise - Final/Discharge Physician Prescribed Exercise Modalities: Treadmill, Schwinn Airdyne AD-7 and SciFit Stepper Nutrition - 30-Day Assessment Weight Mgt (Other Care) Height: 6 ft Weight:: 216 lb BMI: 29.2 Nutrition - 60-Day Assessment Program Goals Nutrition Program Goals Patient has diagnosis of Hyperlipidemia (ICD E78)?: Yes Visit Date of Eval: 08/07/24 Session #:: 22 Cholesterol/Lipids (Other Core Measures) Determine presence & major risk factors that modify LDL goal: Cigarette smoking, Hypertension or hypertensive medication, Low HDL cholesterol <40 mg/dL*, Family history of premature CHD in Male < 55 years: female <65 yearsFa and Age men > 45 years; women >/= 55 years Outcomes/Goals: Pt IDs own risk factors & lifestyle modifications by Session 10, Verbalizes symptoms of angina & response by session 3., Pt independently manages and Other Additional Outcomes/Goals: Intervention/Plan: Advocate for lipid panel cholesterol medication if applicable, Instruct on personal lipid levels & lipid goals/NCEP guidelines, Instruct on cholesterol and Other additional plan/int 30-day Reassessments:: Progressing Reassessment Notes & Comments:: Angina and use of nitro explained in education. Pt demonstrates understanding Diabetes (Other Core Measures) Diabetes Type: Not Applicable Weight Mgt (Other Care) Height: 6 ft Weight:: 216 lb BMI: 29.2 Diagnosis Overweight/Obesity BMI> 30% ICD-10 E66: No Diagnosis High BMI/Morbid Obesity BMI> 35% ICD-10 Z68: No Outcomes/Goals: Pt sets, maintains & shows weight loss goal & trend during rehab and Other additional outcomes/goals Intervention/Plan: Instruct on ideal BMI & set weight loss goal w/patient, Assist pt to ID & incorporate diet changes for weight loss by S9, Refer to Structured Weight Loss program as appropriate, Encourage goal of using 250-300dcal per session for weight loss and Other additional plan/interventions 30 day Reassessments:: Progressing Reassessment Notes & Comments:: Pt has set weight loss goals. Pt is using knowledge from nutrition class. Pt has lost 4.5 lbs. Healthy Eating Habits Will attend diet classes:: Yes Outcomes/Goals:: Consume diet rich in vegs,fruits,whole grain/high fiber,fish,lean meat, Limit sat/trans fats,cholesterol & added salts & sugars and Other additional outcome/goals: Intervention/Plan:: Assess current eating habits and Other Additional plan/interventions 30-day Reassessments:: Progressing Reassessment Notes & Comments:: Pt has set weight loss goals. Pt is using knowledge from nutrition class. Pt has lost 4.5 lbs. Education Gave educational materials for:: Signs & symptoms of hypoglycemia, Signs & symptoms of hyperglycemia, Relate diabetes to coronary artery disease and Healthy eating Core - Final Assessment Tobacco Use How many cigarettes do you smoke per day?: 10 Years Smokin Hypertension Resting Blood Pressure:: 136/72 [place] [employer] Hypertension Guidelines Core - 60-Day Assessment Visit Date of Eval: 08/07/24 Session #:: 22 Medication Compliance Preventative Medication(s):: Statin/lipid and Warfarin/Coumadin H/O mental health issues: depression, anxiety, or addiction?: No Doesn?t believe in the benefits of treatment?: No Believes medications are unnecessary or harmful?: No Has a concern about medication side effects?: No Expresses concern over the cost of medications?: No Outcomes/Goals: Verbalizes medications,desired effect & common side effects @ DC, Pt self-reports following medication regimen, Keeps card in wallet w/medications listed by DC and Other additional outcome/goals: Interventions/plans: Instruct on medication effects & side effects, Review medication list w/patient every two weeks, Instruct importance of taking meds as ordered & assist problem solving and Other additional 30-day Reassessments:: Progressing Reassessment Notes & Comments:: Importance of med compliance explained in education. Pt is currently taking meds as prescribed. Will continue to monitor. Tobacco Use Tobacco Use: Cigarettes How long ago did you quit using tobacco products?: Greater than or equal to 6 months ago How many cigarettes do you smoke per day?: 10 Years Smokin Outcomes/Goals: Smoking cessation achieved or maintained by discharge, Identify aids/strategies for achieving smoking cessation by session 6 and Other additional outcome/goals Interventions/plan: Instruct on effects of smoking & provide smoking cessation resource, Assist pt to set quit date & provide encouragement, Assist pt to develop strategies to achieve/maintain quit date, Assist pt w/nicotine replacement & medication for cessation success and Other additional plan/interventions 30-day Reassessments:: Progressing Reassessment Notes & Comments:: Continue to encourage pt to stop smoking. Encourage smoking cessation class. Hypertension Hypertension Diagnosis:: Hypertension ICD-10 I10 Resting Blood Pressure:: 150/72 Resting Blood Pressure:: 136/72 [place] [employer] Hypertension Guidelines Peak Exercise Blood Pressure:: 160/74 Outcomes/Goals: Able to verbalize/achieve optimal blood pressure <130/80, Incorporates diet changes & exercise for blood pressure control by DC and Other additional outcomes/goals Interventions/plan: Instruct on optimal blood pressure, hypertension & medications, Instruct on effects of sodium, alcohol, stress, exercise &hypertension and Other additional plan/interventions 30 day Reassessments:: Progressing Reassessment Notes & Comments:: Low sodium diet and weight loss encouraged to help lower BP's. Pt has lost 4 lbs. Will continue to monitor. Tobacco Cessation Referral Education Schedule Given:: Yes Psychosocial - 30-Day Assess Target Goals Target Goals Referral to Behavioral Health PS - Interventions: Yes: Attend Stress Management Classes Outcomes/Goals: See list Psychosocial Outcomes/Goals:: ID's personal stressors & 2 strategies to manage stress by discharge and Other Additional outcome/goals: Psychosocial - 60-Day Assess VIsit Date of Eval: 08/07/24 Session #:: 22 History of previous Mental disease:: No Target Goals Target Goals Psychosocial Test Tool Used:: [employer] QOL Cardiac and PHQ-9 Questionnaire phq-9 Severity Referral to Behavioral Health PS - Interventions: Yes: Attend Stress Management Classes Outcomes/Goals: See list Psychosocial Outcomes/Goals:: ID's personal stressors & 2 strategies to manage stress by discharge and Other Additional outcome/goals: Intervention/Plan: See List Interventions/Plan:: Assess stressors,coping strategies & signs of derpression on admission, Instruct/assist pt to develop coping & personal stress Mgt strategies, Refer to Behavioral Health if appropriate, Refer to Physician if appropriate, Instruct patient to recognize signs & symptoms of depression, Instruct patient to recog and Other additional plan/intervention 30-day Reassessments: 30 day Reassessments:: Met Reassessment Notes & Comments:: Pt denies psychosocial issues at this time. Psychosocial - 90-Day Assess Target Goals Target Goals Referral to Behavioral Health PS - Interventions: Yes: Attend Stress Management Classes Psychosocial - Final Assessmen Target Goals Target Goals Referral to Behavioral Health PS - Interventions: Yes: Attend Stress Management Classes Nutrition - 90-Day Assessment Weight Mgt (Other Care) Height: 6 ft Weight:: 216 lb BMI: 29.2 Nutrition - Final Assessment Weight Mgt (Other Care) Height: 6 ft Weight:: 216 lb BMI: 29.2
[2024-08-07 07:36] VITALS: BP 136/72; BP 150/72; BMI 29.2
== END 2024-08-08 23:59 ==
LOC: CR 09:15
PROVIDERS: PCP Internal Medicine; Referring Provider Internal Medicine Cardiovascular Disease; Visit Provider Internal Medicine Cardiovascular Disease
DX: Z95.2 Presence of prosthetic heart valve (principal); I10 Essential (primary) hypertension; I35.0 Nonrheumatic aortic (valve) stenosis; J44.9 Chronic obstructive pulmonary disease, unspecified; G47.33 Obstructive sleep apnea (adult) (pediatric)
CPT/HCPCS: 93798

== ENCOUNTER 2024-09-07 09:15 | Outpatient (RCR) | payer MEDICARE, SELFPAY ==
[2024-08-09 00:51] VITALS: BP 136/72; BP 148/70; BP 150/72; BMI 30.1
--- NOTE | 2024-09-04 08:10 | PCM.CR.ITP ---
Exercise - Initial Assessment Physician Prescribed Exercise Modalities: Treadmill, SciFit Stepper and SciFit Lateral [place]ie Nutrition - Initial Assessment Weight Mgt (Other Care) Height: 6 ft Weight:: 212 lb 8 oz BMI: 28.8 Psychosocial - Initial Assess Target Goals Target Goals Referral to Behavioral Health PS - Interventions: Yes: Attend Stress Management Classes Patient Health Questionnaire PHQ-9 Screening 90-Day Re-eval Assessment: 1. Little interest or pleasure in doing things: Several days 2. Feeling down, depressed, or hopeless: Not at all 3. Trouble falling or staying asleep, or sleeping too much: Not at all 4. Feeling tired or having little energy: More than half the days 5. Poor appetite or overeating: Nearly every day 6. Feeling bad about yourself -- or that you are a failure or have let yourself or your family down: Not at all 7. Trouble concentrating on things, such as reading the newspaper or watching television: Not at all 8. Moving or speaking so slowly that other people could have noticed. Or the opposite - being so fidgety or restless that you have been moving around a lot more than usual: Not at all 9. Thoughts that you would be better off , or of hurting yourself in some way: Not at all How difficult have these problems made it for you to do your work, take care of things at home, or get along with other people?: Somewhat difficult Total Score: 6 Self-Efficacy 6-Item Scale 90-Day Re-eval Assessment: We would like to know how confident you are in doing certain activities. 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 Pt plans on returning today. Physician Prescribed Exercise Modalities: Treadmill, SciFit Stepper and SciFit Lateral [place]ie Frequency: 3x/week for 12 weeks [36 sessions] Intensity: 60-80% of age predicted maximum heart rate reserve Duration: 30 - 45 minutes Current METSs:: 4 Target Heart Rate:: 88-118 Current RPE:: 12 Maximum Excercise HR:: 101 Resting Blood Pressure: 130/80 Maximum Exercise Blood Pressure: 140/72 EKG Type: NSR to ST with rare pac's and pvc Outcomes & Goals Goals:: Verbalizes understanding of THR, RPE & goal METS by session 6, Documents in home exercise log/reports 30 min aerobic 5 day/wk by DC, Demonstrates accurate pulse taking by DC and Other additional outcome/goals: see below Intervention & Plan Exercise Program Goals: Instruct on personal THR & RPE, Instruct on MET level & personal MET goal, Show patient to take own pulse /validate performance until accurate, Instruct on home exercise and Other additional plan/int Physical Activity Home Exercise Physical Activity - Home Exercise: Safe Exercise, Warm-up, Self-monitoring, Cool-Down, Home Exercise > 30 min Daily and Sitting Time <3 hours/daily Outcomes & Goals Outcomes/Goals: Demonstrates correct Warm-up/exercise Cool-Down (S3) if = 2.5 METs, Verbalizes symptoms of exercise intolerance by Session 3 (S3), Demonstrate safe equipment use (S3) & follows exercise prescrition (6) and Other: See below Intervention & Plan Plan/Intervention: Instruct warm-up & cool-down if exercising at > 2 METs, Instruct on symptoms of exercise intolerance & actions to take, Instruct & monitor on saf, Assess intial functional capacity & safety risk and Other See below 30-day Reassessments 30 day Reassessments:: Progressing Reassessment Notes & Comments:: Proper cool down demonstrated and explained to pt. Pt is able to return demonstration. 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 Encouraged smoking cessation class. Will continue to monitor. Core - Final Assessment Hypertension [place] [employer] Hypertension Guidelines Reassessment Notes & Comments:: Pt encouraged to stop smoking. Encouraged smoking cessation class. Will continue to monitor. Core - 90 Day Assessment Visit Date of Evirina: 09/04/24 Session #:: 25 Medication Compliance Preventative Medication(s):: Statin/lipid and Warfarin/Coumadin H/O mental health issues: depression, anxiety, or addiction?: No Doesn?t believe in the benefits of treatment?: No Believes medications are unnecessary or harmful?: No Has a concern about medication side effects?: No Expresses concern over the cost of medications?: No Outcomes/Goals: Verbalizes medications,desired effect & common side effects @ DC, Pt self-reports following medication regimen, Keeps card in wallet w/medications listed by DC and Other additional outcome/goals: Interventions/plans: Instruct on medication effects & side effects, Review medication list w/patient every two weeks, Instruct importance of taking meds as ordered & assist problem solving and Other additional Tobacco Use Tobacco Use: Cigarettes How long ago did you quit using tobacco products?: Greater than or equal to 6 months ago How many cigarettes do you smoke per day?: 10 Years Smokin Outcomes/Goals: Smoking cessation achieved or maintained by discharge, Identify aids/strategies for achieving smoking cessation by session 6 and Other additional outcome/goals Interventions/plan: Instruct on effects of smoking & provide smoking cessation resource, Assist pt to set quit date & provide encouragement, Assist pt to develop strategies to achieve/maintain quit date, Assist pt w/nicotine replacement & medication for cessation success and Other additional plan/interventions Hypertension Hypertension Diagnosis:: Hypertension ICD-10 I10 Resting Blood Pressure:: 130/80 [place] [employer] Hypertension Guidelines Peak Exercise Blood Pressure:: 140/72 Outcomes/Goals: Able to verbalize/achieve optimal blood pressure <130/80, Incorporates diet changes & exercise for blood pressure control by DC and Other additional outcomes/goals Interventions/plan: Instruct on optimal blood pressure, hypertension & medications, Instruct on effects of sodium, alcohol, stress, exercise &hypertension and Other additional plan/interventions 30 day Reassessments:: Progressing Reassessment Notes & Comments:: Pt encouraged to stop smoking. Encouraged smoking cessation class. Will continue to monitor. Tobacco Cessation Referral Education Schedule Given:: Yes Psychosocial - 30-Day Assess Target Goals Target Goals Referral to Behavioral Health PS - Interventions: Yes: Attend Stress Management Classes Psychosocial - 60-Day Assess Target Goals Target Goals Referral to Behavioral Health PS - Interventions: Yes: Attend Stress Management Classes Psychosocial - 90-Day Assess VIsit Date of Eval: 09/04/24 Session #:: 25 History of previous Mental disease:: No Target Goals Target Goals Psychosocial Test Tool Used:: [employer] QOL Cardiac and PHQ-9 Questionnaire phq-9 Severity Referral to Behavioral Health PS - Interventions: Yes: Attend Stress Management Classes Outcomes/Goals: See list Psychosocial Outcomes/Goals:: ID's personal stressors & 2 strategies to manage stress by discharge and Other Additional outcome/goals: Intervention/Plan: See List Interventions/Plan:: Assess stressors,coping strategies & signs of derpression on admission, Instruct/assist pt to develop coping & personal stress Mgt strategies, Refer to Behavioral Health if appropriate, Refer to Physician if appropriate, Instruct patient to recognize signs & symptoms of depression, Instruct patient to recog and Other additional plan/intervention 30-day Reassessments: 30 day Reassessments:: Met Reassessment Notes & Comments:: Pt denies psychosocial issues at this time. Psychosocial - Final Assessmen Target Goals Target Goals Referral to Behavioral Health PS - Interventions: Yes: Attend Stress Management Classes Nutrition - 90-Day Assessment Program Goals Nutrition Program Goals Patient has diagnosis of Hyperlipidemia (ICD E78)?: Yes Visit Date of Eval: 09/04/24 Session #:: 25 Cholesterol/Lipids (Other Core Measures) Determine presence & major risk factors that modify LDL goal: Cigarette smoking, Hypertension or hypertensive medication, Low HDL cholesterol <40 mg/dL*, Family history of premature CHD in Male < 55 years: female <65 yearsFa and Age men > 45 years; women >/= 55 years Outcomes/Goals: Pt IDs own risk factors & lifestyle modifications by Session 10, Verbalizes symptoms of angina & response by session 3., Pt independently manages and Other Additional Outcomes/Goals: Intervention/Plan: Advocate for lipid panel cholesterol medication if applicable, Instruct on personal lipid levels & lipid goals/NCEP guidelines, Instruct on cholesterol and Other additional plan/int Diabetes (Other Core Measures) Diabetes Type: Not Applicable Weight Mgt (Other Care) Height: 6 ft Weight:: 212 lb 8 oz BMI: 28.8 Diagnosis Overweight/Obesity BMI> 30% ICD-10 E66: No Diagnosis High BMI/Morbid Obesity BMI> 35% ICD-10 Z68: No Outcomes/Goals: Pt sets, maintains & shows weight loss goal & trend during rehab and Other additional outcomes/goals Intervention/Plan: Instruct on ideal BMI & set weight loss goal w/patient, Assist pt to ID & incorporate diet changes for weight loss by S9, Refer to Structured Weight Loss program as appropriate, Encourage goal of using 250-300dcal per session for weight loss and Other additional plan/interventions Healthy Eating Habits Will attend diet classes:: Yes Outcomes/Goals:: Consume diet rich in vegs,fruits,whole grain/high fiber,fish,lean meat, Limit sat/trans fats,cholesterol & added salts & sugars and Other additional outcome/goals: Intervention/Plan:: Assess current eating habits and Other Additional plan/interventions 30-day Reassessments:: Met Reassessment Notes & Comments:: Pt has attended nutrition class. Pt has lost 7.5 lbs. Pt is encouraged to keep a food log. Pt understands the importance of a low sodium heart healthy diet. Will continue to weigh pt weekly. Education Gave educational materials for:: Signs & symptoms of hypoglycemia, Signs & symptoms of hyperglycemia, Relate diabetes to coronary artery disease and Healthy eating Nutrition - Final Assessment Weight Mgt (Other Care) Height: 6 ft Weight:: 212 lb 8 oz BMI: 28.8
[2024-09-04 08:16] VITALS: BP 130/80
[2024-09-04 08:27] VITALS: BP 130/80; BMI 28.8
== END 2024-09-08 23:59 ==
LOC: CR 09:15
PROVIDERS: PCP Internal Medicine; Referring Provider Internal Medicine Cardiovascular Disease; Visit Provider Internal Medicine Cardiovascular Disease
DX: Z95.2 Presence of prosthetic heart valve (principal); I10 Essential (primary) hypertension; I35.0 Nonrheumatic aortic (valve) stenosis; J44.9 Chronic obstructive pulmonary disease, unspecified; G47.33 Obstructive sleep apnea (adult) (pediatric)
CPT/HCPCS: 93798

== ENCOUNTER 2024-09-07 09:57 | Outpatient (RCR) | payer MEDICARE, SELFPAY ==
[2024-07-09 20:46] VITALS: BMI 30.1
[2024-09-04 08:27] VITALS: BMI 28.8
[2024-09-04 10:27] LABS: International Normalized Ratio 3.6; Prothrombin Time (Protime)PT. 35.7 SECONDS (11.7-14.9)
[2024-09-07 10:24] LABS: International Normalized Ratio 1.4; Prothrombin Time (Protime)PT. 16.9 SECONDS (11.7-14.9)
== END 2024-09-07 18:00 | disposition home or self-care (01) ==
LOC: LAB 09:57
PROVIDERS: PCP Internal Medicine; Referring Provider Internal Medicine; Visit Provider Internal Medicine
DX: Z79.01 Long term (current) use of 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s (principal); J44.9 Chronic obstructive pulmonary disease, unspecified; R10.9 Unspecified abdominal pain
CPT/HCPCS: 36415; 85610

== ENCOUNTER 2024-09-15 19:22 | Inpatient (IN) | payer MEDICARE, SELFPAY ==
[2024-09-15] VITALS (11 sets, daily range): BP systolic 119–164; BP diastolic 62–82; PULSE 66–92; RESP 18–24; TEMP 36.6–36.7; O2SAT 88–95; BMI 28.8; BMI 29.6
--- NOTE | 2024-09-15 19:26 | RAD_ITS ---
INDICATION: SOB EXAMINATION/TECHNIQUE: X-RAY - XR Chest 1 View COMPARISON: 10/11/2023. FINDINGS: The lungs are clear. Tortuous and calcified thoracic aorta. The heart is not enlarged. No pleural effusion or pneumothorax. No acute osseous abnormalities. RAD/Chest 1 View (Portable) IMPRESSION: No acute radiographic abnormalities. Electronically Signed: Alen Bravo MD at 20:55 EST ,
[2024-09-15 19:41] LABS: Absolute Lymphocyte Count 1.77 X10^3/uL (0.83-4.51); Basophil# 0.03 X10^3/uL; Basophil% 0.4 % (0-1); Eosinophil# 0.13 X10^3/uL; Eosinophils% 1.9 % (0-5); Hematocrit 42.6 % (40-54); Hemoglobin 14.1 g/dL (13.0-16.5); Lymphocyte # 1.77 X10^3/ul (0.83-4.51); Lymphocyte % 26.4 % (19-41); Mean Corp Hgb Conc 33.1 g/dL (32-36); Mean Corpuscular Hgb 32.9 pg (27.0-32.0); Mean Corpuscular Volume 99.3 fL (80-94); Mean Platelet Vol. 9.4 fl (6.2-12.0); Monocyte# 0.73 X10^3/uL; Monocyte% 10.9 % (0-10); NRBC Flagged by Analyzer 0 % (0-5); Neutrophil # 4.03 X10^3/uL (2.7-7.7); Neutrophil % 60.1 % (47-70); Platelet Count 198 K/mm3 (150-450); RBC Distribution Width CV 15.1 % (11.6-14.6); RBC Distribution Width SD 55.4 fl (35.1-43.9); Red Blood Count 4.29 M/mm3 (4.6-6.2); White Blood Count 6.7 K/mm3 (4.4-11.0)
[2024-09-15 19:56] LABS: Anion Gap 5 (5-15); BUN 15 mg/dL (7-18); BUN/Creat Ratio 13.2 RATIO (10-20); Calcium,Total 9.4 mg/dL (8.5-10.1); Chloride 107 mmol/L (98-107); Creatinine, Serum 1.14 mg/dL (0.70-1.30); EST Glomerular Filtration Rate 67 mL/min (>60); Est Glom Filt Rate - Afr Amer 81 mL/min (>60); Estimated Creatinine Clearance 66.35 ml/min; Glucose 137 mg/dL (74-106); Potassium 3.6 mmol/L (3.5-5.1); Sodium Level 141 mmol/L (136-145)
--- NOTE | 2024-09-15 20:14 | CM.ED ---
Social Work SW was able to verify that patient has both HPOA and Living Will on file with [facility]. No further needs identified. Rosalinda Henry, [employer], [employer]
--- NOTE | 2024-09-15 20:15 | EDS_ITS ---
HPI History of Present Illness Chief Complaint: Shortness of Breath Informant: patient Onset/Context/Timing Onset: Weeks (2) Context: gradual Timing: Continuous Quality: Positive for Dyspnea on exertion and Wheezing Worsened by: Exertion and Lying flat Relieved by: Albuterol Associated Symptoms cough, post nasal drip, ear pain, sore throat and white sputum; Negative for rhinorrhea, fever, chills, sweats, clear sputum, yellow sputum or green sputum Chest Pain: Positive for Tightness (Substernal) Narrative Narrative: Patient presents with shortness of breath that has been getting worse over the past 2 weeks. Patient states his breathing is worse with any exertion. Patient states he feels like he is wheezing. Patient states he is coughing up some thick white sputum. Patient states that albuterol aerosol seems to be helping at home. Patient is states some postnasal drainage and ear pain. Patient also admits to a sore throat. Patient states he completed a course of prednisone and an antibiotic. Patient states that he started Keflex and doxycycline last night for cellulitis in his legs. Patient denies any fevers or chills. 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 of 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 Skin lesion Intermittent claudication Hernia Carotid artery stenosis BPH (benign prostatic hyperplasia) Hemorrhoids Obesity Peripheral neuropathy LIZA (obstructive sleep apnea) Bronchitis Chronic sinusitis Hypersomnia Home Medications ?Medication ?Instructions ?Recorded ?Last Taken ?Type calcium carbonate (Calcium 600) 600 mg PO DAILY SUPPLEMENT 08/24/19 12/23/23 History zinc sulfate 50 mg zinc (220 mg) 50 mg PO DAILY PRN SUPPLEMENT 09/25/23 Unknown History capsule albuterol sulfate 90 mcg/actuation 1 inh inhalation Q6H PRN shortness 09/28/23 10/25/23 Rx aerosol inhaler of breath or wheezing #8.5 grams budesonide 160 mcg-glycopyr 9 2 inh inhalation BID Flu 10/11/23 12/23/23 History mcg-formot 4.8 mcg/actuation HFA inhaler (Breztri Aerosphere) essential oil 1 drp .Route PRN PRN calming 10/21/23 Unknown History ipratropium 0.5 mg-albuterol 3 mg 3 ml inhalation Q6H PRN shortness 11/22/23 Unknown Rx (2.5 mg base)/3 mL nebulization of breath or wheezing #90 mL soln Handicap Placard #1 ea 12/09/23 Unknown Rx rosuvastatin 20 mg tablet 20 mg PO DAILY CHOLESTEROL #90 12/26/23 Unknown Rx tabs warfarin 6 mg tablet 6 mg PO MO 04/28/24 Unknown History hydrochlorothiazide 25 mg tablet 25 mg PO DAILY #60 tabs 05/15/24 Unknown Rx pantoprazole 40 mg tablet,delayed 40 mg PO DAILY PRN indigestion 07/27/24 Unknown History release cephalexin 500 mg capsule 500 mg PO TID #21 caps 09/14/24 Unknown Rx doxycycline monohydrate 100 mg 100 mg PO BID #14 tabs 09/14/24 Unknown Rx tablet ascorbic acid (vitamin C) 1,000 mg 1 g PO DAILY 09/15/24 Unknown History tablet (Vitamin C) cholecalciferol (vitamin D3) 25 1,000 unit PO DAILY 09/15/24 Unknown History mcg (1,000 unit) tablet (Vitamin D3) gabapentin 300 mg capsule 300 mg PO Q12H NERVE PAIN 09/15/24 Unknown History warfarin 4 mg tablet 4 mg PO SUTUWETHFRSA previous 09/15/24 Unknown History blood clots Allergy/AdvReac Type Severity Reaction Status Date / Time pseudoephedrine (From Allergy Severe Rash Verified 09/15/24 19:23 Sudafed) Iodinated Contrast Media AdvReac Severe Other Verified 09/15/24 19:23 (Iodinated Contrast Media - IV Dye) oxycodone AdvReac Other Verified 09/15/24 19:23 Family History Father Lung cancer Uncle Cancer Grandfather Myocardial infarction Grandmother Myocardial infarction Mother Myocardial infarction, Onset Age: 90 Surgical History S/P TAVR (transcatheter aortic valve replacement) (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) History of transurethral resection of prostate (~01/2020) History of wisdom tooth extraction History of arthroscopy of left knee Status post hammer toe correction History of nasal polypectomy History of umbilical hernia repair History of back surgery Social History Smoking Status: Current every day smoker tobacco type: cigarettes Tobacco: How many years used: 50 second hand exposure: Yes quit status: considering quitting alcohol intake: current alcohol intake frequency: holidays/special occasions only substance use type: does not use caffeine: Yes Type: coffee Number of servings: 2 and tea Number of servings: 1 what type of physical activity do you participate in: none ROS ROS ED Constitutional Constitutional ED: Denies chills or fever(s) Eyes Eyes: Denies blurry vision or change in vision ENT ENT ED: Reports ear pain bilateral and sore throat; Denies rhinorrhea Cardiovascular Cardiovascular: Reports chest pain; Denies palpitations Respiratory/Chest Respiratory/Chest: Reports cough and dyspnea Gastrointestinal Gastrointestinal: Denies nausea or vomiting Genitourinary Genitourinary ED: Denies dysuria or hematuria Musculoskeletal Musculoskeletal: Reports back pain and neck pain Integumentary Denies abscess or rash Neurologic Neurologic: Reports headache(s); Denies weakness Allergic/Immunologic Allergic/Immunologic ED: Denies mouth swelling or urticaria EXAM Physical Exam Const Vital Signs: 09/15/24 19:23 09/15/24 20:00 09/15/24 20:00 Temperature 98.1 F Temperature Source Oral Pulse Rate 92 Respiratory Rate 24 H 20 H Respiratory Effort Respiratory Depth Respiratory Pattern Blood Pressure 164/78 H Blood Pressure Mean 106 Pulse Ox 93 92 Oxygen Delivery Method Room Air Room Air Room Air Oxygen Flow Rate (L/min) 09/15/24 20:00 09/15/24 20:00 09/15/24 20:51 Temperature 98.1 F Temperature Source Oral Pulse Rate 87 Respiratory Rate 20 H Respiratory Effort Short of Breath Labored Respiratory Depth Normal Respiratory Pattern Normal Blood Pressure 122/75 H Blood Pressure Mean 90 Pulse Ox 92 88 Oxygen Delivery Method Room Air Room Air Room Air Oxygen Flow Rate (L/min) 09/15/24 20:51 09/15/24 20:53 09/15/24 21:00 Temperature 98.0 F Temperature Source Oral Pulse Rate 67 Respiratory Rate 20 H Respiratory Effort Respiratory Depth Respiratory Pattern Blood Pressure 135/66 H Blood Pressure Mean 89 Pulse Ox 92 92 94 Oxygen Delivery Method Nasal Cannula Nasal Cannula Nasal Cannula Oxygen Flow Rate (L/min) 2 2 2 09/15/24 22:00 09/15/24 23:00 09/15/24 23:15 Temperature 98.0 F 97.9 F Temperature Source Oral Oral Pulse Rate 67 70 66 Respiratory Rate 18 18 22 H Respiratory Effort Respiratory Depth Respiratory Pattern Tachypnea Blood Pressure 142/82 H 119/62 Blood Pressure Mean 102 81 Pulse Ox 94 93 Oxygen Delivery Method Nasal Cannula Nasal Cannula Oxygen Flow Rate (L/min) 2 2 09/15/24 23:29 Temperature 98.0 F Temperature Source Pulse Rate 70 Respiratory Rate 18 Respiratory Effort Respiratory Depth Respiratory Pattern Blood Pressure 119/62 Blood Pressure Mean 81 Pulse Ox 93 Oxygen Delivery Method Oxygen Flow Rate (L/min) Positive well nourished and well developed General Appearance ED: well developed and NAD HEENT Reports moist mucous membranes Neck supple and no JVD Resp normal respiratory effort Auscultation: wheezes expiratory wheezes and throughout Cardio regular rate and regular rhythm GI non-tender and non-distended Palpation: soft Extremity Extremity Narrative: There is some mild erythema of the lower extremities bilaterally. There is no warmth. There is no discharge or drainage noted. Neuro oriented x3, CN's II-XII intact bilaterally and no sensory deficits noted [place] Coma Scale: document GCS findings Spontaneous Obeys Commands Oriented 15 Sensorium / Orientation: alert Speech: speech normal Motor Exam: strength 5/5 throughout Psych mental status grossly normal MDM MDM MDM Narrative Medical decision making narrative: Differential diagnosis includes pneumonia, viral illness, bronchitis, pneumothorax, cardiac dysrhythmia, COPD exacerbation, and electrolyte abnormality. EKG will be obtained to assess for cardiac dysrhythmia and cardiac ischemia. Chest x-ray will be obtained to assess for pneumonia and pneumothorax. COVID-19, influenza, and RSV PCR will be obtained to assess for viral illness. CBC will be obtained to assess for leukocytosis and anemia. Basic metabolic profile will be obtained to assess for electrolyte abnormality and renal function. PT with INR and PTT will be obtained to assess for coagulopathy. Lab Data Attestation: I reviewed the patient's lab results. Lab results narrative: CBC was reviewed and was within normal limits. Basic metabolic profile was reviewed and was within normal limits. COVID-19 PCR was reviewed and was negative. Influenza PCR was reviewed and was negative for influenza A and influenza B. RSV PCR was reviewed and was negative. Labs: Laboratory Results - last 24 hr 09/15/24 19:30 WBC 6.7 RBC 4.29 L Hgb 14.1 Hct 42.6 MCV 99.3 H MCH 32.9 H MCHC 33.1 RDW Std Deviation 55.4 H RDW Coeff of Marcelle 15.1 H Plt Count 198 MPV 9.4 Immature Gran % (Auto) 0.300 Neut % (Auto) 60.1 Lymph % (Auto) 26.4 [place] % (Auto) 10.9 H Eos % (Auto) 1.9 Baso % (Auto) 0.4 Absolute Neuts (auto) 4.0 Absolute Lymphs (auto) 1.77 Nucleated RBC % 0 Sodium 141 Potassium 3.6 Chloride 107 Carbon Dioxide 29.0 Anion Gap 5 BUN 15 Creatinine 1.14 Estim Creat Clear Calc 66.35 Est GFR (MDRD) Af Amer 81 Est GFR (MDRD) Non-Af 67 BUN/Creatinine Ratio 13.2 Glucose 137 H Calcium 9.4 Radiography Chest X-Ray - ED: 1 View, Read by ED Physician, Read by Radiologist and No Acute Disease Diagnostic Testing: Clinical Impression(s) from Imaging Studies Chest X-Ray 09/15/24 19:26 IMPRESSION: No acute radiographic abnormalities. Electronically Signed: Alen Bravo MD at 20:55 EST , Portable 1 view chest x-ray was obtained. On my independent interpretation, lung fuller are clear. There is normal cardiac silhouette. Bony thorax is normal. There is no acute process noted. Radiologist also interpreted the x- ray and agrees. EKG Initial EKG: Attestation: I personally reviewed and interpreted this EKG as follows: Interpretation: Sinus Rhythm (63) and No Acute Injury Pattern Comments: EKG was obtained. On my independent interpretation, it showed a normal sinus rhythm with a rate of 63. AK interval, QRS interval, and QTc intervals were all normal. [place] was normal. There are no acute ST or T wave changes. Prior EKG tracings: available for review Prior: Unchanged (10/26/2023) Management Discussion w/another healthcare provider: Hospitalist Treatment and Re-Evaluation :: Patient was given a DuoNeb aerosol here. Patient ambulated here in the emergency department and his pulse ox 100 dropped to 88% on room air. Patient is not on home oxygen. Because of this, I recommended admission to the hospital for COPD exacerbation. Case was discussed with the hospitalist. He will admit the patient to his service. Patient understood and was agreeable with the plan. All questions were answered. Discharge Plan Triage Chief Complaint: Shortness of Breath Other Complaint: Cellulitis ED Provider: Cruzito Goff Dx/Rx/DC Orders Clinical Impression: COPD exacerbation, Essential hypertension, S/P TAVR (transcatheter aortic valve replacement) Prescriptions: No Action calcium carbonate [Calcium 600] 600 mg calcium (1,500 mg) tablet 600 mg PO DAILY pantoprazole 40 mg tablet,delayed release (DR/EC) 40 mg PO DAILY PRN (Reason: indigestion) Patient Comments: takes prn now essential oil 1 drp oil 1 drp .Route PRN PRN (Reason: calming) Rx Instructions: 1 drp as needed PRN; rub on skin prn jojoba, smoking sensation craving relief ipratropium-albuterol 0.5 mg-3 mg(2.5 mg base)/3 mL solution for nebulization 3 ml inhalation Q6H PRN (Reason: shortness of breath or wheezing) Qty: 90 3RF cephalexin 500 mg capsule 500 mg PO TID Qty: 21 0RF doxycycline monohydrate 100 mg tablet 100 mg PO BID Qty: 14 0RF zinc sulfate 50 mg zinc (220 mg) capsule 50 mg PO DAILY PRN (Reason: SUPPLEMENT) Patient Comments: pt states takes zinc periodically albuterol sulfate 90 mcg/actuation HFA aerosol inhaler 1 inh inhalation Q6H PRN (Reason: shortness of breath or wheezing) Qty: 8.5 2RF Breztri Aerosphere 160-9-4.8 mcg/actuation HFA aerosol inhaler 2 inh INHALATION BID Patient Comments: INHALE 2 (TWO) INHALATION EVERY MORNING and EVERY EVENING cholecalciferol (vitamin D3) [Vitamin D3] 25 mcg (1,000 unit) tablet 1,000 unit PO DAILY ascorbic acid (vitamin C) [Vitamin C] 1,000 mg tablet 1 g PO DAILY warfarin 4 mg tablet 4 mg PO SUTUWETHFRSA Protocol: Dose Management Protocol Text: Patient Instructed to take: warfarin 4 mg (1 Tab) on [place], [place], , TH, FR, SA warfarin 4 mg (1.5 Tabs) on WE Rx Instructions: Take as directed gabapentin 300 mg capsule 300 mg PO Q12H (DME) Handicap Placard See Rx Instructions .ROUTE .MEDSUPPLY Qty: 1 0RF Rx Instructions: As directed, length of time 3 years rosuvastatin 20 mg tablet 20 mg PO DAILY Qty: 90 3RF warfarin 6 mg tablet 6 mg PO MO hydrochlorothiazide 25 mg tablet 25 mg PO DAILY Qty: 60 1RF Primary Care Provider: Wade Padilla Referrals: Wade Padilla MD [Primary Care Provider] - Print Language: Greek Disposition Disposition: Acute Care Hospital [facility]
--- NOTE | 2024-09-15 23:10 | EKG12_ITS ---
Test Reason : DYSRHYTHMIA Blood Pressure : */* mmHG Vent. Rate : 63 BPM Atrial Rate : 63 BPM P-R Int : 128 ms QRS Dur : 72 ms QT Int : 414 ms P-R-T Axes : 38 72 70 degrees QTcB Int : 423 ms Normal sinus rhythm Normal ECG Confirmed by Yang Wood ([id number]), supervising editor news reel ISIDRA CARLOS ([id number]) on 09/17/2024 10:16:21 AM Referred By: Confirmed By: Yang Wood
[2024-09-15] MEDS: Ipratropium/Albuterol Sulfate 3 ML AMPUL.NEB INHALATION (23:15)
--- NOTE | 2024-09-15 23:30 | HP.PCM.HOS_ITS ---
HPI - General General Date of Admission: 09/15/24 Date of Service: 09/15/24 Chief Complaint: Worsening shortness of breath with wheezing HPI Narrative NAKUL BASSETT, is a 73 M who presented to [facility] ED on 09/15/2024 with worsening shortness of breath and wheezing. Patient has history of COPD, does not wear any home oxygen. His symptoms started a few weeks ago and he completed a course of prednisone and an antibiotic with only mild improvement. He was seen by his PCP yesterday for concern for left lower extremity cellulitis and was started on Keflex and doxycycline for this. He noted to his PCP that he was having some shortness of breath with wheezing but he was satting well and breathing comfortably on room air there. On arrival to the ED he was mildly hypertensive and oxygen saturations were in the low 90s on room air. He desaturated to the mid to high 80s with exertion on room air. Chest x-ray was unremarkable. Labs were unremarkable. COVID/flu/RSV negative. Patient was given a breathing treatment with some improvement. Given the presumed COPD exacerbation with hypoxia, hospitalist was contacted for admission. I saw the patient at bedside in the ED, was present. Patient was mildly fatigued appearing but otherwise sitting up comfortably in bed and in no acute distress. He was breathing comfortably on 2 L nasal cannula at rest. On exam he did have moderate wheezing noted in upper airways bilaterally with reduced breath sounds bilaterally throughout. He did have multiple coughing episodes during my encounter with him as well. He does report feeling better after the breathing treatment here. States he has been using his inhalers at home with some improvement in his symptoms. He denies any fevers or chills. States the left leg has felt slightly more swollen and tender to touch over the past several days. Notably is on warfarin and INR was therapeutic at 2.8. No other acute concerns at this time. [facility] Medical History Sinusitis Left leg cellulitis Asthmatic bronchitis with exacerbation Allergic reaction Hyperlipidemia Dark stools Generalized anxiety disorder GI bleed Cough Shortness of breath Acute sinusitis, unspecified Arterial insufficiency Orthostasis Hypotensive episode Recurrent epistaxis Lymphadenopathy Nonrheumatic aortic (valve) stenosis with insufficiency Essential hypertension Health care maintenance Colon cancer screening Oral thrush Upper respiratory tract infection COVID-19 (07/2021) Nail avulsion, toe Urinary frequency Dysuria Post-phlebitic syndrome 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 reflux disease) correction current use of 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 Skin lesion Intermittent claudication Hernia Carotid artery stenosis BPH (benign prostatic hyperplasia) Hemorrhoids Obesity Peripheral neuropathy LIZA (obstructive sleep apnea) Bronchitis Chronic sinusitis Hypersomnia Home Medications ?Medication ?Instructions ?Recorded ?Last Taken ?Type calcium carbonate (Calcium 600) 600 mg PO DAILY SUPPLEMENT 08/24/19 12/23/23 History zinc sulfate 50 mg zinc (220 mg) 50 mg PO DAILY PRN SUPPLEMENT 09/25/23 Unknown History capsule albuterol sulfate 90 mcg/actuation 1 inh inhalation Q6H PRN shortness 09/28/23 10/25/23 Rx aerosol inhaler of breath or wheezing #8.5 grams budesonide 160 mcg-glycopyr 9 2 inh inhalation BID Flu 10/11/23 12/23/23 History mcg-formot 4.8 mcg/actuation HFA inhaler (Breztri Aerosphere) essential oil 1 drp .Route PRN PRN calming 10/21/23 Unknown History ipratropium 0.5 mg-albuterol 3 mg 3 ml inhalation Q6H PRN shortness 11/22/23 Unknown Rx (2.5 mg base)/3 mL nebulization of breath or wheezing #90 mL soln Handicap Placard #1 ea 12/09/23 Unknown Rx rosuvastatin 20 mg tablet 20 mg PO DAILY CHOLESTEROL #90 12/26/23 Unknown Rx tabs warfarin 6 mg tablet 6 mg PO MO 04/28/24 Unknown History hydrochlorothiazide 25 mg tablet 25 mg PO DAILY #60 tabs 05/15/24 Unknown Rx pantoprazole 40 mg tablet,delayed 40 mg PO DAILY PRN indigestion 07/27/24 Unknown History release cephalexin 500 mg capsule 500 mg PO TID #21 caps 09/14/24 Unknown Rx doxycycline monohydrate 100 mg 100 mg PO BID #14 tabs 09/14/24 Unknown Rx tablet ascorbic acid (vitamin C) 1,000 mg 1 g PO DAILY 09/15/24 Unknown History tablet (Vitamin C) cholecalciferol (vitamin D3) 25 1,000 unit PO DAILY 09/15/24 Unknown History mcg (1,000 unit) tablet (Vitamin D3) gabapentin 300 mg capsule 300 mg PO Q12H NERVE PAIN 09/15/24 Unknown History warfarin 4 mg tablet 4 mg PO SUTUWETHFRSA previous 09/15/24 Unknown History blood clots Allergy/AdvReac Type Severity Reaction Status Date / Time pseudoephedrine (From Allergy Severe Rash Verified 09/15/24 19:23 Sudafed) Iodinated Contrast Media AdvReac Severe Other Verified 09/15/24 19:23 (Iodinated Contrast Media - IV Dye) oxycodone AdvReac Other Verified 09/15/24 19:23 Family History Father Lung cancer Uncle Cancer Grandfather Myocardial infarction Grandmother Myocardial infarction Mother Myocardial infarction, Onset Age: 90 Surgical History S/P TAVR (transcatheter aortic valve replacement) (02/17/24) History of transurethral resection of prostate (~01/2020) History of wisdom tooth extraction History of arthroscopy of left knee Status post hammer toe correction History of nasal polypectomy History of umbilical hernia repair History of back surgery Social History Smoking Status: Current every day smoker tobacco type: cigarettes Tobacco: How many years used: 50 second hand exposure: Yes quit status: considering quitting alcohol intake: current alcohol intake frequency: holidays/special occasions only substance use type: does not use caffeine: Yes Type: coffee Number of servings: 2 and tea Number of servings: 1 what type of physical activity do you participate in: none ROS Constitutional Constitutional: Reports fatigue; Denies chills, fever(s) or weakness ENT HEENT: Reports nasal congestion and nasal discharge; Denies sinus pressure or sore throat Cardiovascular Cardiovascular: Denies chest pain, edema, lightheadedness or palpitations Respiratory/Chest Respiratory/Chest: Reports cough, productive cough, shortness of breath at rest, shortness of breath with exertion and wheezing Gastrointestinal Gastrointestinal: Denies abdominal pain Genitourinary Genitourinary: Denies dysuria Neurologic Neurologic: Denies dizziness, focal weakness or headache(s) Vital Signs Vital Signs Vital Signs: 09/15/24 19:23 09/15/24 20:00 09/15/24 20:00 Temperature 98.1 F Temperature Source Oral Pulse Rate 92 Respiratory Rate 24 H 20 H Respiratory Effort Respiratory Depth Respiratory Pattern Blood Pressure 164/78 H Blood Pressure Mean 106 Pulse Ox 93 92 Oxygen Delivery Method Room Air Room Air Room Air Oxygen Flow Rate (L/min) 09/15/24 20:00 09/15/24 20:00 09/15/24 20:51 Temperature 98.1 F Temperature Source Oral Pulse Rate 87 Respiratory Rate 20 H Respiratory Effort Short of Breath Labored Respiratory Depth Normal Respiratory Pattern Normal Blood Pressure 122/75 H Blood Pressure Mean 90 Pulse Ox 92 88 Oxygen Delivery Method Room Air Room Air Room Air Oxygen Flow Rate (L/min) 09/15/24 20:51 09/15/24 20:53 09/15/24 21:00 Temperature 98.0 F Temperature Source Oral Pulse Rate 67 Respiratory Rate 20 H Respiratory Effort Respiratory Depth Respiratory Pattern Blood Pressure 135/66 H Blood Pressure Mean 89 Pulse Ox 92 92 94 Oxygen Delivery Method Nasal Cannula Nasal Cannula Nasal Cannula Oxygen Flow Rate (L/min) 2 2 2 09/15/24 22:00 09/15/24 23:00 09/15/24 23:15 Temperature 98.0 F 97.9 F Temperature Source Oral Oral Pulse Rate 67 70 66 Respiratory Rate 18 18 22 H Respiratory Effort Respiratory Depth Respiratory Pattern Tachypnea Blood Pressure 142/82 H 119/62 Blood Pressure Mean 102 81 Pulse Ox 94 93 Oxygen Delivery Method Nasal Cannula Nasal Cannula Oxygen Flow Rate (L/min) 2 2 Weight Weight: 93.7 kg Body Mass Index (BMI) 29.6 Physical Exam Const alert, oriented x3 and no apparent distress Constitutional Narrative: Elderly male, overweight, mildly fatigued appearing, otherwise sitting up comfortably in bed, conversing normally and in no acute distress. General Appearance: cooperative and comfortable HEENT normocephalic, head/scalp atraumatic, hearing grossly normal bilaterally, nasal mucous membranes and turbinates normal and moist oral mucous membranes Eyes PERRL, EOMs intact bilaterally and conjunctivae normal Neck full ROM Chest inspection of chest normal Resp normal respiratory effort and no use of accessory muscles Resp Narrative: Breathing comfortably on 2 L nasal cannula at rest. Moderate wheezing noted in bilateral upper airways with reduced breath sounds bilaterally throughout. No crackles noted. Cardio regular rate, regular rhythm, no murmurs and peripheral pulses 2+ throughout GI normal to inspection, nondistended, normoactive bowel sounds, soft to palpation, non-tender and non-distended Back/Spine normal ROM Extremity normal to inspection, full ROM and no pedal edema Skin no rashes or lesions noted Neuro moves all extremities and no focal motor deficits Psych mental status grossly normal Results Lab / Micro Data 09/15/24 19:30 09/15/24 19:30 Labs: Laboratory Results - last 24 hr 09/15/24 19:30: WBC 6.7, RBC 4.29 L, Hgb 14.1, Hct 42.6, MCV 99.3 H, MCH 32.9 H, MCHC 33.1, RDW Std Deviation 55.4 H, RDW Coeff of Marcelle 15.1 H, Plt Count 198, MPV 9.4, Immature Gran % (Auto) 0.300, Neut % (Auto) 60.1, Lymph % (Auto) 26.4, [place] % (Auto) 10.9 H, Eos % (Auto) 1.9, Baso % (Auto) 0.4, Absolute Neuts (auto) 4.0, Absolute Lymphs (auto) 1.77, Nucleated RBC % 0, Sodium 141, Potassium 3.6, Chloride 107, Carbon Dioxide 29.0, Anion Gap 5, BUN 15, Creatinine 1.14, Estim Creat Clear Calc 66.35, Est GFR (MDRD) Af Amer 81, Est GFR (MDRD) Non-Af 67, BUN/Creatinine Ratio 13.2, Glucose 137 H, Calcium 9.4 Micro: Microbiology 09/15/24 20:20 Mucosa - Nasopharyngeal SARS-CoV-2, Influenza & RSV (PCR) - Final Imaging Radiology Impression Chest X-Ray 09/15/24 19:26 IMPRESSION: No acute radiographic abnormalities. Electronically Signed: Alen Bravo MD at 20:55 EST , Assessment & Plan Assessment/Plan (1) COPD exacerbation: (2) Hypoxia: PLAN: Plan Patient is a 73-year-old male who presented [facility] ED on 09/15/2024 with worsening shortness of breath with wheezing. 1. COPD exacerbation with hypoxia ? Admit under inpatient status to [facility]. Unclear etiology for exacerbation. COVID/flu/RSV negative and afebrile with normal WBC count, low concern for bacterial infection. Chest x-ray unremarkable. Will treat with scheduled DuoNebs and steroids for now. Of note, patient states he had significant confusion with delirium with prolonged IV steroids during a previous admission. Will give 2 doses of IV Solu-Medrol and then transition to p.o. prednisone. Continue home long-acting inhaler. Wean supplemental oxygen as able. 2. Mild left lower extremity cellulitis ? Left lower extremity with mild warmth, erythema and tenderness to palpation with small wound noted on somers. Has had left lower extremity DVTs in the past but this is unlikely with patient on warfarin and INR therapeutic range. Okay to continue treatment with p.o. doxycycline. Does not need Keflex in addition to this so this will not be ordered. Chronic medical conditions: ? 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 Continue home warfarin. ? Hypertension, hyperlipidemia, carotid artery stenosis, history of aortic stenosis s/p TAVR: Continue home hydrochlorothiazide and rosuvastatin. ? GERD: Continue home PPI. ? Neuropathy: Continue home gabapentin. DVT prophylaxis: Not indicated, on warfarin CODE STATUS: Full code, verified Expected disposition: Home, 2 to 3 days Total clinical time spent by myself addressing the patient's medical issues, reviewing all the data, and collaborating with patient's care team: 55 minutes. Charges/Coding Visit Charges Inpatient E&M: 29852 Init Hosp L2
[2024-09-15 23:49] LABS: International Normalized Ratio 2.8; Prothrombin Time (Protime)PT. 30.5 SECONDS (11.7-14.9)
[2024-09-16] VITALS (13 sets, daily range): BP systolic 126–145; BP diastolic 59–77; PULSE 62–86; RESP 18–20; TEMP 36.1–36.7; O2SAT 93–96; BMI 29.0
[2024-09-16] MEDS: Doxycycline 100 MG CAPSULE PO ×3 (01:38→22:55)
[2024-09-16] MEDS: 0.9% Saline Lock 10 ML Syringe IV ×2 (05:47→14:37)
[2024-09-16] MEDS: Ipratropium/Albuterol Sulfate 3 ML AMPUL.NEB INHALATION ×4 (07:14→20:36)
[2024-09-16 07:59] LABS: Hematocrit 41.7 % (40-54); Hemoglobin 13.6 g/dL (13.0-16.5); Mean Corp Hgb Conc 32.6 g/dL (32-36); Mean Corpuscular Hgb 32.7 pg (27.0-32.0); Mean Corpuscular Volume 100.2 fL (80-94); Platelet Count 185 K/mm3 (150-450); RBC Distribution Width CV 15.2 % (11.6-14.6); RBC Distribution Width SD 55.9 fl (35.1-43.9); Red Blood Count 4.16 M/mm3 (4.6-6.2); White Blood Count 5.4 K/mm3 (4.4-11.0)
[2024-09-16 08:28] LABS: Anion Gap 7 (5-15); BUN 17 mg/dL (7-18); BUN/Creat Ratio 16.3 RATIO (10-20); Calcium,Total 9.4 mg/dL (8.5-10.1); Chloride 105 mmol/L (98-107); Creatinine, Serum 1.04 mg/dL (0.70-1.30); EST Glomerular Filtration Rate 74 mL/min (>60); Est Glom Filt Rate - Afr Amer 90 mL/min (>60); Estimated Creatinine Clearance 72.08 ml/min; Glucose 147 mg/dL (74-106); Potassium 4.1 mmol/L (3.5-5.1); Sodium Level 137 mmol/L (136-145)
[2024-09-16] MEDS: Calcium Carbonate 500 MG Tablet PO (09:47)
[2024-09-16] MEDS: Gabapentin 300 MG Capsule PO ×2 (09:48→22:55)
[2024-09-16] MEDS: Ascorbic Acid 500 MG Tablet 1000 MG PO (09:48)
[2024-09-16] MEDS: Cholecalciferol (VIT D3) 25 MCG TABLET (1,000 UNITS) PO (09:48)
--- NOTE | 2024-09-16 11:45 | CASEMGMT ---
RN RANCHO Face to Face with patient for initial transition planning/care coordination assessment. RN CM introduced self and role at [facility]. Patient lying in bed, alert and oriented. Patient willing to participate in assessment and is able to answer all questions appropriately. Care providers, pharmacy, and demographics verified. Strata: 3 PCP: Randy Specialists: Meagan, press clippings cutter and paster; Mario Oconnor, manuscript reader; Hawk, urologsit; Preferred Pharmacy: [facility] Insurance: [facility] Prescription Benefit: yes Living Will/HPOA: yes, son in law Ramy Walker LNOK: , son in law Living Arrangements: Patient lives with in 2 story home with bed and bath on first floor. Patient is independent at home. Transportation: self, DME/HHC: Patient has raised toilet, cane, walker, grab bars, nebulizer, pulse ox, and cpap at home. Will monitor for home oxygen, prefers [employer]. No previous HHC or SNF Patient wishes to discharge home, denies need for home health at this time. Patient states he has no further needs or concerns at this time. CM to follow for discharge planning needs that may arise. Disposition Plan: Patient to discharge home with family support and follow-up plans in place. Will monitor for home oxygen. Kerry COBB, RN, CM
[2024-09-16 12:38] LABS: International Normalized Ratio 2.9; Prothrombin Time (Protime)PT. 30.7 SECONDS (11.7-14.9)
--- NOTE | 2024-09-16 14:47 | CHAPLAIN ---
Type of Pastoral Visit _x__ Initial Visit ___ Follow-up Visit ___ On-call Visit ___ General Patient Visit ___ Spiritual Assessment ___ Family Conference ___ Bereavement ___ Rapid Response ___ Code Blue ___ Other (describe below) Pastoral Care Referral From _x__ Patient ___ Family ___ Nurse ___ Physician ___ Document Controller ___ Tmd Teacher ___ Other (describe below) Sacrament/Intervention _x__ Active listening ___ Anointing ___ Mu-Ism ___ Bereavement ___ Communion ___ Lawanda exploration ___ _x__ Life review _x__ Prayer ___ Reconciliation ___ Sacrament of Sick _x__ Supportive presence ___ Wedding ___ Other (describe below) Pastoral Comments patient is welcoming and 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
--- NOTE | 2024-09-16 16:37 | PCM.PN.HOSP ---
Reason for Visit Reason for Visit: Diagnoses Chronic obstructive pulmonary disease with (acute) exacerbation (09/15/24) Hypoxemia (09/15/24) Subjective Subjective Patient still short of breath but feeling little bit better today, does have a cough, leg still somewhat bothersome and swollen, possibly little bit better Objective Data Objective Data Vital Signs: Vital Signs Temp Pulse Resp BP Pulse Ox O2 Del Method O2 Flow Rate 98.0 F 72 18 126/59 H 94 Nasal Cannula 2 09/16/24 15:30 09/16/24 15:30 09/16/24 15:30 09/16/24 15:30 09/16/24 15:30 09/16/24 15:30 09/16/24 15:30 Oxygen Flow Rate (L/min) 2 Oxygen Delivery Method Nasal Cannula Weight: 91.9 kg Body Mass Index (BMI) 29.0 Intake & Output: Intake and Output for Last 24 Hours 09/14/24 09/15/24 09/16/24 23:59 23:59 23:59 Intake Total 360 / 360 Balance 360 / 360 Lab / Micro Data 09/16/24 07:04 09/16/24 07:04 Labs: Laboratory Results - last 24 hr 09/15/24 19:30: WBC 6.7, RBC 4.29 L, Hgb 14.1, Hct 42.6, MCV 99.3 H, MCH 32.9 H, MCHC 33.1, RDW Std Deviation 55.4 H, RDW Coeff of Marcelle 15.1 H, Plt Count 198, MPV 9.4, Immature Gran % (Auto) 0.300, Neut % (Auto) 60.1, Lymph % (Auto) 26.4, [place] % (Auto) 10.9 H, Eos % (Auto) 1.9, Baso % (Auto) 0.4, Absolute Neuts (auto) 4.0, Absolute Lymphs (auto) 1.77, Nucleated RBC % 0, Sodium 141, Potassium 3.6, Chloride 107, Carbon Dioxide 29.0, Anion Gap 5, BUN 15, Creatinine 1.14, Estim Creat Clear Calc 66.35, Est GFR (MDRD) Af Amer 81, Est GFR (MDRD) Non-Af 67, BUN/Creatinine Ratio 13.2, Glucose 137 H, Calcium 9.4 09/15/24 23:28: PT 30.5 H, INR 2.8, APTT 37.0 H 09/16/24 07:04: WBC 5.4, RBC 4.16 L, Hgb 13.6, Hct 41.7, MCV 100.2 H, MCH 32.7 H, MCHC 32.6, RDW Std Deviation 55.9 H, RDW Coeff of Marcelle 15.2 H, Plt Count 185, MPV 10.0, PT 30.7 H, INR 2.9, Sodium 137, Potassium 4.1, Chloride 105, Carbon Dioxide 25.0, Anion Gap 7, BUN 17, Creatinine 1.04, Estim Creat Clear Calc 72.08, Est GFR (MDRD) Af Amer 90, Est GFR (MDRD) Non-Af 74, BUN/Creatinine Ratio 16.3, Glucose 147 H, Calcium 9.4 Micro: Microbiology 09/15/24 20:20 Mucosa - Nasopharyngeal SARS-CoV-2, Influenza & RSV (PCR) - Final Radiography Diagnostic Testing: Radiology Impression Chest X-Ray 09/15/24 19:26 IMPRESSION: No acute radiographic abnormalities. Electronically Signed: Alen Bravo MD at 20:55 EST Reading Location ID and State: [address] [place] [address] Tel , Service support , Physical Exam Narrative General: Alert, oriented, no apparent distress HEENT: Atraumatic, normocephalic Eyes: Anicteric, normal conjunctiva, extraocular movements grossly intact Neck: Supple Respiratory: No increased respiratory effort at time of exam, scattered wheezes Cardiovascular: Regular rate GI: Soft, nontender, nondistended Extremities: 1+ left lower extremity edema Musculoskeletal: Moving all extremities Neuro: No overt focal neurological deficits Skin: Left somers wound covered without drainage on bandage Psych: Cooperative Assessment & Plan Assessment/Plan (1) Acute exacerbation of chronic obstructive pulmonary disease: PLAN: Plan #Acute exacerbation of COPD -Admit to floor, continuous O2 monitoring -Chest x-ray: Unremarkable COVID/flu/RSV negative -O2 in place, wean as tolerated -P.o. prednisone -Scheduled DuoNebs -Albuterol prn -Antibiotics: Doxy -Incentive spirometer -Mucinex # Left lower extremity cellulitis -Continue doxycycline # History of multiple VTE's -On Coumadin -INR therapeutic -Continue to monitor INR #LIZA -Continue home NIPPV if applicable #GERD -Patient takes PPI as needed # History of aortic stenosis status post TAVR -Noted #DVT ppx: Therapeutic on Coumadin Nevin Woodward MD Time spent in the patient's overall evaluation, decision-making process, review of diagnostic data, adjustment of management, discussion with other providers, nursing and ancillary staff involved in patient's care documentation, 37 Minutes Charges/Coding Visit Charges Inpatient E&M: 79956 Subs Hosp L2
[2024-09-16] MEDS: Atorvastatin Calcium 40 MG Tablet PO (22:55)
[2024-09-16] MEDS: guaiFENesin 1,200 MG Tablet 1200 MG PO (22:55)
[2024-09-17] VITALS (12 sets, daily range): BP systolic 110–152; BP diastolic 59–100; PULSE 62–82; RESP 16–20; TEMP 35.8–37; O2SAT 93–97
[2024-09-17] MEDS: Pantoprazole Sodium 40 MG Tablet PO (00:21)
[2024-09-17] MEDS: Ipratropium/Albuterol Sulfate 3 ML AMPUL.NEB INHALATION ×5 (07:28→22:35)
[2024-09-17 08:05] LABS: Absolute Lymphocyte Count 1.43 X10^3/uL (0.83-4.51); Absolute Neutrophil Count 16.6 X10^3/uL (2.0-7.7); Basophil# 0.02 X10^3/uL; Basophil% 0.1 % (0-1); Eosinophil# 0.01 X10^3/uL; Eosinophils% 0.1 % (0-5); Hematocrit 40.3 % (40-54); Lymphocyte # 1.43 X10^3/ul (0.83-4.51); Lymphocyte % 7.4 % (19-41); Mean Corp Hgb Conc 32.3 g/dL (32-36); Mean Corpuscular Hgb 32.3 pg (27.0-32.0); Mean Corpuscular Volume 100.2 fL (80-94); Mean Platelet Vol. 9.8 fl (6.2-12.0); Monocyte# 1.22 X10^3/uL; Monocyte% 6.3 % (0-10); NRBC Flagged by Analyzer 0 % (0-5); Neutrophil # 16.62 X10^3/uL (2.7-7.7); Neutrophil % 85.6 % (47-70); Platelet Count 177 K/mm3 (150-450); RBC Distribution Width CV 15.4 % (11.6-14.6); RBC Distribution Width SD 57.1 fl (35.1-43.9); Red Blood Count 4.02 M/mm3 (4.6-6.2); White Blood Count 19.4 K/mm3 (4.4-11.0)
[2024-09-17 08:23] LABS: Anion Gap 5 (5-15); BUN 21 mg/dL (7-18); BUN/Creat Ratio 21.6 RATIO (10-20); Calcium,Total 9.1 mg/dL (8.5-10.1); Chloride 106 mmol/L (98-107); Creatinine, Serum 0.97 mg/dL (0.70-1.30); EST Glomerular Filtration Rate 81 mL/min (>60); Est Glom Filt Rate - Afr Amer 97 mL/min (>60); Estimated Creatinine Clearance 77.28 ml/min; Glucose 131 mg/dL (74-106); Potassium 4.2 mmol/L (3.5-5.1); Sodium Level 137 mmol/L (136-145)
[2024-09-17 09:15] LABS: International Normalized Ratio 2.9; Prothrombin Time (Protime)PT. 31.3 SECONDS (11.7-14.9)
[2024-09-17] MEDS: guaiFENesin 1,200 MG Tablet 1200 MG PO ×2 (09:58→20:38)
[2024-09-17] MEDS: Famotidine 200 MG/20 ML MDV 20 MG in 0.9% Normal Saline (Pres. free 8 ML 300 MG IV (09:58)
[2024-09-17] MEDS: Doxycycline 100 MG CAPSULE PO ×2 (09:58→20:38)
[2024-09-17] MEDS: Calcium Carbonate 500 MG Tablet PO (09:58)
[2024-09-17] MEDS: 0.9% Saline Lock 10 ML Syringe IV (09:59)
[2024-09-17] MEDS: Ascorbic Acid 500 MG Tablet 1000 MG PO (10:01)
[2024-09-17] MEDS: Gabapentin 300 MG Capsule PO ×2 (10:01→20:38)
[2024-09-17] MEDS: predniSONE 20 MG Tablet 40 MG PO (10:01)
[2024-09-17] MEDS: DiphenhydrAMINE 25 MG Capsule 50 MG PO (10:01)
[2024-09-17] MEDS: Cholecalciferol (VIT D3) 25 MCG TABLET (1,000 UNITS) PO (10:01)
--- NOTE | 2024-09-17 16:49 | PN.HOSP_ITS ---
Reason for Visit Reason for Visit: Diagnoses Chronic obstructive pulmonary disease with (acute) exacerbation (09/15/24) Hypoxemia (09/15/24) Subjective Subjective Patient respiratory status improved however this a.m. when he was eating breakfast he became itchy first on his palms and then the rest of his body with some itchiness on his lips when he developed red rash and hives. Patient denied having any medications before this, denied having any foods that he has not had before and denies any other thing that could be associated this morning with this reaction. Did have a similar reaction to Sudafed a couple weeks ago except much worse for which she went to the ED and ultimately resolved. Patient not have any difficulty swallowing or swelling in his throat Objective Data Objective Data Vital Signs: Vital Signs Temp Pulse Resp BP Pulse Ox O2 Del Method O2 Flow Rate 97.3 F L 65 18 145/65 H 93 Room Air 2 09/17/24 13:43 09/17/24 15:05 09/17/24 15:05 09/17/24 13:43 09/17/24 13:43 09/17/24 13:43 09/17/24 13:43 Oxygen Flow Rate (L/min) 2 Oxygen Delivery Method Room Air Weight: 91.9 kg Body Mass Index (BMI) 29.0 Intake & Output: Intake and Output for Last 24 Hours 09/15/24 09/16/24 09/17/24 23:59 23:59 23:59 Intake Total 840 / 840 770 / 770 Balance 840 / 840 770 / 770 Lab / Micro Data 09/17/24 07:35 09/17/24 07:35 Labs: Laboratory Results - last 24 hr 09/17/24 07:35: WBC 19.4 H, RBC 4.02 L, Hgb 13.0, Hct 40.3, MCV 100.2 H, MCH 32.3 H, MCHC 32.3, RDW Std Deviation 57.1 H, RDW Coeff of Marcelle 15.4 H, Plt Count 177, MPV 9.8, Immature Gran % (Auto) 0.500, Neut % (Auto) 85.6 H, Lymph % (Auto) 7.4 L, [place] % (Auto) 6.3, Eos % (Auto) 0.1, Baso % (Auto) 0.1, Absolute Neuts (auto) 16.6 H, Absolute Lymphs (auto) 1.43, Nucleated RBC % 0, PT 31.3 H, INR 2.9, Sodium 137, Potassium 4.2, Chloride 106, Carbon Dioxide 26.0, Anion Gap 5, BUN 21 H, Creatinine 0.97, Estim Creat Clear Calc 77.28, Est GFR (MDRD) Af Amer 97, Est GFR (MDRD) Non-Af 81, BUN/Creatinine Ratio 21.6 H, Glucose 131 H, Calcium 9.1 Micro: Microbiology 09/15/24 20:20 Mucosa - Nasopharyngeal SARS-CoV-2, Influenza & RSV (PCR) - Final Physical Exam Narrative General: Alert, oriented HEENT: Atraumatic, normocephalic Eyes: Anicteric, normal conjunctiva, extraocular movements grossly intact Neck: Supple Respiratory: Clear to auscultation bilaterally, normal respiratory effort Cardiovascular: Regular rate and rhythm GI: Soft, nontender, nondistended Extremities: No edema Musculoskeletal: Moving all extremities Neuro: No overt focal neurological deficits Skin: Patient with various welts/hives over back and arms, no swelling in the throat Psych: Cooperative Assessment & Plan Assessment/Plan (1) Acute exacerbation of chronic obstructive pulmonary disease: PLAN: Plan # Acute allergic reaction -Unclear etiology given patient reporting he was eating at the time and had not taken any medications and is not eating anything new or unusual -He responded fairly well to Benadryl, oral steroids, and famotidine however on reevaluation he still had some rash though continued to be resolving -Given it was slow to resolve and still somewhat present feel it is reasonable to watch patient until tomorrow -No respiratory compromise or need for intubation or epinephrine at this time #Acute exacerbation of COPD -Admit to floor, continuous O2 monitoring -Chest x-ray: Unremarkable COVID/flu/RSV negative -O2 in place, wean as tolerated -P.o. prednisone -Scheduled DuoNebs -Albuterol prn -Antibiotics: Doxy -Incentive spirometer -Mucinex -09/17: Significantly improved, suspect patient will be able to be discharged tomorrow from respiratory standpoint # Left lower extremity cellulitis -Continue doxycycline -09/17: Continue with wound care Chronic medical problems: # History of multiple VTE's -On Coumadin -INR therapeutic -Continue to monitor INR #LIZA -Continue home NIPPV if applicable #GERD -Patient takes PPI as needed # History of aortic stenosis status post TAVR -Noted #DVT ppx: Therapeutic on Coumadin Nevin Woodward MD Time spent in the patient's overall evaluation, decision-making process, review of diagnostic data, adjustment of management, discussion with other providers, nursing and ancillary staff involved in patient's care documentation, 40 Minutes Charges/Coding Visit Charges Inpatient E&M: 31197 Subs Hosp L2
[2024-09-17] MEDS: Atorvastatin Calcium 40 MG Tablet PO (20:38)
[2024-09-18] VITALS (8 sets, daily range): BP systolic 126–152; BP diastolic 68–70; PULSE 68–80; RESP 18–20; TEMP 35.7–36.8; O2SAT 91–96
[2024-09-18] MEDS: Ipratropium/Albuterol Sulfate 3 ML AMPUL.NEB INHALATION ×2 (07:40→10:41)
[2024-09-18 08:34] LABS: Absolute Neutrophil Count 11.5 X10^3/uL (2.0-7.7); Basophil# 0.02 X10^3/uL; Basophil% 0.1 % (0-1); Hematocrit 40.6 % (40-54); Hemoglobin 13.3 g/dL (13.0-16.5); Lymphocyte % 10.7 % (19-41); Mean Corp Hgb Conc 32.8 g/dL (32-36); Mean Corpuscular Hgb 33.1 pg (27.0-32.0); Monocyte# 0.99 X10^3/uL; Monocyte% 7.1 % (0-10); NRBC Flagged by Analyzer 0 % (0-5); Neutrophil # 11.46 X10^3/uL (2.7-7.7); Neutrophil % 81.6 % (47-70); Platelet Count 186 K/mm3 (150-450); RBC Distribution Width CV 15.9 % (11.6-14.6); Red Blood Count 4.02 M/mm3 (4.6-6.2)
[2024-09-18 08:59] LABS: Anion Gap 7 (5-15); BUN 18 mg/dL (7-18); BUN/Creat Ratio 18.8 RATIO (10-20); Calcium,Total 9.1 mg/dL (8.5-10.1); Chloride 108 mmol/L (98-107); Creatinine, Serum 0.96 mg/dL (0.70-1.30); EST Glomerular Filtration Rate 82 mL/min (>60); Est Glom Filt Rate - Afr Amer 99 mL/min (>60); Estimated Creatinine Clearance 78.09 ml/min; Glucose 104 mg/dL (74-106); Potassium 3.9 mmol/L (3.5-5.1); Sodium Level 139 mmol/L (136-145)
[2024-09-18] MEDS: Ascorbic Acid 500 MG Tablet 1000 MG PO (09:08)
[2024-09-18] MEDS: Cholecalciferol (VIT D3) 25 MCG TABLET (1,000 UNITS) PO (09:08)
[2024-09-18] MEDS: predniSONE 20 MG Tablet 40 MG PO (09:08)
[2024-09-18] MEDS: Doxycycline 100 MG CAPSULE PO (09:08)
[2024-09-18] MEDS: Gabapentin 300 MG Capsule PO (09:08)
[2024-09-18] MEDS: Calcium Carbonate 500 MG Tablet PO (09:08)
[2024-09-18] MEDS: guaiFENesin 1,200 MG Tablet 1200 MG PO (09:08)
[2024-09-18 10:08] LABS: International Normalized Ratio 3.9; Prothrombin Time (Protime)PT. 39.2 SECONDS (11.7-14.9)
--- NOTE | 2024-09-18 13:31 | PCM.DC ---
Discharge Instructions Diet Discharge Diet: No restrictions DC O2, CPAP, BIPAP needs Home O2 Discharge instructions: No Dressing / Incision Discharge Activity: - (Increase activity as tolerated) Follow Up Care Test Results: Test results from this visit will be discussed in further detail at your follow-up appointment, if applicable. Discharge Plan Admission Admit Date/Time: 09/15/24 23:34 Primary Reason for Your Visit: COPD exacerbation Attending Provider: Nevin Woodward Primary Care Provider: Wade Padilla Consulting Providers: Delvin Reyes Instructions Patient Instructions: ED General Allergic Reactions Additional Instructions / Restrictions: DISCHARGE INSTRUCTIONS PLEASE READ *Please take this with you to your next doctors appointment* -Continue doxycycline as previously prescribed but your Keflex was discontinued -You will be discharged on 5 days of prednisone -You had an allergic reaction while you are in the hospital but it was unclear the cause, would recommend keeping [id number] Benadryl on hand and following up with your primary care physician as you may need referral to an superintendent gas distribution for further allergy testing on an outpatient basis. If you begin to have any signs or symptoms of an allergic reaction recommend immediately proceeding with the closest emergency department -You will need to continue having your INR checked, would recommend holding 1 dose and having your INR rechecked in 2 to 3 days through your prescribing physicians office -Please call your primary care provider's office upon discharge to schedule a hospital follow up within 1 week. -For any concerning signs or symptoms please call 911 or proceed to the nearest emergency department Discharge Orders/Prescriptions Prescriptions: New prednisone 20 mg tablet 40 mg PO DAILY 5 Days Qty: 10 0RF Continued calcium carbonate [Calcium 600] 600 mg calcium (1,500 mg) tablet 600 mg PO DAILY pantoprazole 40 mg tablet,delayed release (DR/EC) 40 mg PO DAILY PRN (Reason: indigestion) Patient Comments: takes prn now essential oil 1 drp oil 1 drp .Route PRN PRN (Reason: calming) Rx Instructions: 1 drp as needed PRN; rub on skin prn jojoba, smoking sensation craving relief ipratropium-albuterol 0.5 mg-3 mg(2.5 mg base)/3 mL solution for nebulization 3 ml inhalation Q6H PRN (Reason: shortness of breath or wheezing) Qty: 90 3RF doxycycline monohydrate 100 mg tablet 100 mg PO BID Qty: 14 0RF zinc sulfate 50 mg zinc (220 mg) capsule 50 mg PO DAILY PRN (Reason: SUPPLEMENT) Patient Comments: pt states takes zinc periodically albuterol sulfate 90 mcg/actuation HFA aerosol inhaler 1 inh inhalation Q6H PRN (Reason: shortness of breath or wheezing) Qty: 8.5 2RF Breztri Aerosphere 160-9-4.8 mcg/actuation HFA aerosol inhaler 2 inh INHALATION BID Patient Comments: INHALE 2 (TWO) INHALATION EVERY MORNING and EVERY EVENING cholecalciferol (vitamin D3) [Vitamin D3] 25 mcg (1,000 unit) tablet 1,000 unit PO DAILY ascorbic acid (vitamin C) [Vitamin C] 1,000 mg tablet 1 g PO DAILY warfarin 4 mg tablet 4 mg PO SUTUWETHFRSA Protocol: Dose Management Protocol Text: Patient Instructed to take: warfarin 4 mg (1 Tab) on DHILLON, MO, TU, TH, FR, SA warfarin 4 mg (1.5 Tabs) on WE Rx Instructions: Take as directed gabapentin 300 mg capsule 300 mg PO Q12H (DME) Handicap Placard See Rx Instructions .ROUTE .MEDSUPPLY Qty: 1 0RF Rx Instructions: As directed, length of time 3 years rosuvastatin 20 mg tablet 20 mg PO DAILY Qty: 90 3RF warfarin 6 mg tablet 6 mg PO MO hydrochlorothiazide 25 mg tablet 25 mg PO DAILY Qty: 60 1RF Discontinued cephalexin 500 mg capsule 500 mg PO TID Qty: 21 0RF Referrals / Follow Up: Wade Padilla MD [Primary Care Provider] - Within 1 Week Disposition Disposition (needs filled in before D/C Order can be placed): Home, Self Care
--- NOTE | 2024-09-18 13:40 | DS.PCM_ITS ---
Providers Date of Admission: 09/15/24 Date of Discharge: 09/18/24 Primary Care Physician: Dr. Wade Padilla MD Reason For Visit: COPD EXACERBATION WITH HYPOXIA Diagnosis Discharge Diagnosis (1) Acute exacerbation of chronic obstructive pulmonary disease: Status: Chronic Code(s): J44.1 - Chronic obstructive pulmonary disease with (acute) exacerbation Plan #Acute exacerbation of COPD # Acute allergic reaction # Left lower extremity cellulitis # History of multiple VTE's #LIZA #GERD # History of aortic stenosis status post TAVR Medications at Discharge Home Medications calcium carbonate (Calcium 600) 600 mg PO DAILY SUPPLEMENT 08/24/19 zinc sulfate 50 mg zinc (220 mg) capsule 50 mg PO DAILY PRN SUPPLEMENT 09/25/23 albuterol sulfate 90 mcg/actuation aerosol inhaler 1 inh inhalation Q6H PRN shortness of breath or wheezing #8.5 grams 09/28/23 budesonide 160 mcg-glycopyr 9 mcg-formot 4.8 mcg/actuation HFA inhaler (Breztri Aerosphere) 2 inh inhalation BID Flu 10/11/23 essential oil 1 drp .Route PRN PRN calming 10/21/23 ipratropium 0.5 mg-albuterol 3 mg (2.5 mg base)/3 mL nebulization soln 3 ml inhalation Q6H PRN shortness of breath or wheezing #90 mL 11/22/23 Handicap Placard #1 ea 12/09/23 rosuvastatin 20 mg tablet 20 mg PO DAILY CHOLESTEROL #90 tabs 12/26/23 warfarin 6 mg tablet 6 mg PO MO blood thinner 04/28/24 hydrochlorothiazide 25 mg tablet 25 mg PO DAILY diuretic #60 tabs 05/15/24 pantoprazole 40 mg tablet,delayed release 40 mg PO DAILY PRN indigestion 07/27/24 doxycycline monohydrate 100 mg tablet 100 mg PO BID infection #14 tabs 09/14/24 ascorbic acid (vitamin C) 1,000 mg tablet (Vitamin C) 1 g PO DAILY vitamin 09/15/24 cholecalciferol (vitamin D3) 25 mcg (1,000 unit) tablet (Vitamin D3) 1,000 unit PO DAILY vitamin 09/15/24 gabapentin 300 mg capsule 300 mg PO Q12H NERVE PAIN 09/15/24 warfarin 4 mg tablet 4 mg PO SUTUWETHFRSA previous blood clots 09/15/24 prednisone 20 mg tablet 40 mg (2 x 20 mg) PO DAILY 5 days #10 tabs 09/18/24 Hospital Course Summary of Care Provided Minutes Spent on Discharge: 28 Hospital Course: #Acute exacerbation of COPD # Acute allergic reaction # Left lower extremity cellulitis # History of multiple VTE's #LIZA #GERD # History of aortic stenosis status post TAVR 73-year-old male with problem list as above who presented to [facility] ED 09/15/2024 with worsening shortness of breath and breathing. He was admitted and started on nebulizers and IV steroids, breathing significantly improved and patient was ready for discharge from respiratory standpoint 09/16/2024 however on that day he had an acute allergic reaction. Patient respiratory status improved however this a.m. when he was eating breakfast he became itchy first on his palms and then the rest of his body with some itchiness on his lips when he developed red rash and hives. Patient denied having any medications before this, denied having any foods that he has not had before and denies any other thing that could be associated this morning with this reaction. Did have a similar reaction to Sudafed a couple weeks ago except much worse for which she went to the ED and ultimately resolved. Patient not have any difficulty swallowing or swelling in his throat. Patient was given Benadryl, his steroid, and famotidine and progressively improved, was slow to improve so he was kept an additional night for observation but rash completely resolved and patient's breathing doing well with no new or acute complaints. Discharge instructions as follows: -Continue doxycycline as previously prescribed but your Keflex was discontinued -You will be discharged on 5 days of prednisone -You had an allergic reaction while you are in the hospital but it was unclear the cause, would recommend keeping [id number] Benadryl on hand and following up with your primary care physician as you may need referral to an marketing project specialist for further allergy testing on an outpatient basis. If you begin to have any signs or symptoms of an allergic reaction recommend immediately proceeding with the closest emergency department -You will need to continue having your INR checked, would recommend holding 1 dose and having your INR rechecked in 2 to 3 days through your prescribing physicians office -Please call your primary care provider's office upon discharge to schedule a hospital follow up within 1 week. -For any concerning signs or symptoms please call 911 or proceed to the nearest emergency department Physical Exam Narrative General: Alert, oriented, no apparent distress HEENT: Atraumatic, normocephalic Eyes: Anicteric, normal conjunctiva, extraocular movements grossly intact Neck: Supple Respiratory: Clear to auscultation bilaterally, normal respiratory effort Cardiovascular: Regular rate GI: Soft, nontender, nondistended Extremities: No edema Musculoskeletal: Moving all extremities Neuro: No overt focal neurological deficits Skin: No rashes appreciated Psych: Cooperative Weight / BMI Weight Weight: 91.9 kg Body Mass Index (BMI) 29.0 ABG / Lab / Microbiology Data 09/18/24 07:33 09/18/24 07:33 Laboratory: Laboratory Results - last 24 hr 09/18/24 07:33: WBC 14.0 H, RBC 4.02 L, Hgb 13.3, Hct 40.6, MCV 101.0 H, MCH 33.1 H, MCHC 32.8, RDW Std Deviation 59.0 H, RDW Coeff of Marcelle 15.9 H, Plt Count 186, MPV 10.0, Immature Gran % (Auto) 0.500, Neut % (Auto) 81.6 H, Lymph % (Auto) 10.7 L, [place] % (Auto) 7.1, Eos % (Auto) 0.0, Baso % (Auto) 0.1, Absolute Neuts (auto) 11.5 H, Absolute Lymphs (auto) 1.50, Nucleated RBC % 0, PT 39.2 H, INR 3.9, Sodium 139, Potassium 3.9, Chloride 108 H, Carbon Dioxide 24.0, Anion Gap 7, BUN 18, Creatinine 0.96, Estim Creat Clear Calc 78.09, Est GFR (MDRD) Af Amer 99, Est GFR (MDRD) Non-Af 82, BUN/Creatinine Ratio 18.8, Glucose 104, Calcium 9.1 Microbiology: Microbiology 09/15/24 20:20 Mucosa - Nasopharyngeal SARS-CoV-2, Influenza & RSV (PCR) - Final D/C Instructions Discharge Diet: No restrictions DC O2, CPAP, BIPAP Needs RN Home O2 Qualification: Home O2 Qualification: Is the patient on home oxygen No 09/18/24 13:52 Home O2 Qualification: AT REST 1- Pulse Ox at rest 95 09/18/24 13:52 Home O2 Qualification: WITH AMBULATION 1- Pulse Ox with ambulation 92 09/18/24 13:52 1- Oxygen Flow Rate with 0 09/18/24 13:52 ambulation Home O2 Discharge instructions: No Meaningful Use Info Meaningful Use Meaningful Use Diagnoses (Choose all that apply): None applicable Ischemic Stroke Statin Dosing Therapy Reference: STATIN DOSE THERAPY REFERENCE: * Patients > 75 years receive moderate or high dose statin therapy. * Patients 75 years or YOUNGER should receive HIGH intensity statin dose unless contraindicated. You will be required to document reason for non-treatment if statin daily dose does not meet guidelines. HIGH DOSE STATIN THERAPY DAILY Atorvastatin > than or = to 40 mg Rosuvastatin > than or = to 20 mg Amlodipine + Atorvastatin > than or = to 2.5/40 mg Ezetimibe + Simvastatin 10/80 mg Simvastatin 80mg Discharge Plan Admission Admit Date/Time: 09/15/24 23:34 Primary Reason for Your Visit: COPD exacerbation Attending Provider: Nevin Woodward Primary Care Provider: Wade Padilla Consulting Providers: Delvin Reyes Instructions Patient Instructions: ED General Allergic Reactions Additional Instructions / Restrictions: DISCHARGE INSTRUCTIONS PLEASE READ *Please take this with you to your next doctors appointment* -Continue doxycycline as previously prescribed but your Keflex was discontinued -You will be discharged on 5 days of prednisone -You had an allergic reaction while you are in the hospital but it was unclear the cause, would recommend keeping [id number] Benadryl on hand and following up with your primary care physician as you may need referral to an marketing project specialist for further allergy testing on an outpatient basis. If you begin to have any signs or symptoms of an allergic reaction recommend immediately proceeding with the closest emergency department -You will need to continue having your INR checked, would recommend holding 1 dose and having your INR rechecked in 2 to 3 days through your prescribing physicians office -Please call your primary care provider's office upon discharge to schedule a hospital follow up within 1 week. -For any concerning signs or symptoms please call 911 or proceed to the nearest emergency department Discharge Orders/Prescriptions Prescriptions: New prednisone 20 mg tablet 40 mg PO DAILY 5 Days Qty: 10 0RF Continued calcium carbonate [Calcium 600] 600 mg calcium (1,500 mg) tablet 600 mg PO DAILY pantoprazole 40 mg tablet,delayed release (DR/EC) 40 mg PO DAILY PRN (Reason: indigestion) Patient Comments: takes prn now essential oil 1 drp oil 1 drp .Route PRN PRN (Reason: calming) Rx Instructions: 1 drp as needed PRN; rub on skin prn jojoba, smoking sensation craving relief ipratropium-albuterol 0.5 mg-3 mg(2.5 mg base)/3 mL solution for nebulization 3 ml inhalation Q6H PRN (Reason: shortness of breath or wheezing) Qty: 90 3RF doxycycline monohydrate 100 mg tablet 100 mg PO BID Qty: 14 0RF zinc sulfate 50 mg zinc (220 mg) capsule 50 mg PO DAILY PRN (Reason: SUPPLEMENT) Patient Comments: pt states takes zinc periodically albuterol sulfate 90 mcg/actuation HFA aerosol inhaler 1 inh inhalation Q6H PRN (Reason: shortness of breath or wheezing) Qty: 8.5 2RF Breztri Aerosphere 160-9-4.8 mcg/actuation HFA aerosol inhaler 2 inh INHALATION BID Patient Comments: INHALE 2 (TWO) INHALATION EVERY MORNING and EVERY EVENING cholecalciferol (vitamin D3) [Vitamin D3] 25 mcg (1,000 unit) tablet 1,000 unit PO DAILY ascorbic acid (vitamin C) [Vitamin C] 1,000 mg tablet 1 g PO DAILY warfarin 4 mg tablet 4 mg PO SUTUWETHFRSA Protocol: Dose Management Protocol Text: Patient Instructed to take: warfarin 4 mg (1 Tab) on DHILLON, MO, TU, TH, FR, SA warfarin 4 mg (1.5 Tabs) on WE Rx Instructions: Take as directed gabapentin 300 mg capsule 300 mg PO Q12H (DME) Handicap Placard See Rx Instructions .ROUTE .MEDSUPPLY Qty: 1 0RF Rx Instructions: As directed, length of time 3 years rosuvastatin 20 mg tablet 20 mg PO DAILY Qty: 90 3RF warfarin 6 mg tablet 6 mg PO MO hydrochlorothiazide 25 mg tablet 25 mg PO DAILY Qty: 60 1RF Discontinued cephalexin 500 mg capsule 500 mg PO TID Qty: 21 0RF Referrals / Follow Up: Wade Padilla MD [Primary Care Provider] - Within 1 Week Disposition Disposition (needs filled in before D/C Order can be placed): Home, Self Care Charges/Coding Visit Charges Inpatient E&M: 27821 Disch Hosp
== END 2024-09-18 14:43 | disposition home or self-care (01) | DRG 191 ==
LOC: ED 23:33 → PCU 23:53
PROVIDERS: Admitting Provider Hospitalist; Emergency Provider Emergency Medicine; PCP Internal Medicine; Visit Provider Internal Medicine
DX: J44.1 Chronic obstructive pulmonary disease with (acute) exacerbation (principal); L03.116 Cellulitis of left lower limb; I10 Essential (primary) hypertension; Z95.2 Presence of prosthetic heart valve; E78.5 Hyperlipidemia, unspecified; K21.9 Gastro-esophageal reflux disease without esophagitis; G47.33 Obstructive sleep apnea (adult) (pediatric); F17.210 Nicotine dependence, cigarettes, uncomplicated; G62.9 Polyneuropathy, unspecified; L50.0 Allergic urticaria; T78.40XA Allergy, unspecified, initial encounter; X58.XXXA Exposure to other specified factors, initial encounter; Z79.01 Long term (current) use of 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s; Z79.899 Other long term (current) drug therapy; Z86.16 Personal history of COVID-19; Z86.718 Personal history of other venous thrombosis and embolism
CPT/HCPCS: 36415; 71045; 80048; 85025; 85027; 85610; 85730; 87631; 93005; 94640; 94668; 94760; 99252; 99285; A4216; G0463

== ENCOUNTER 2024-10-02 10:01 | Outpatient (RCR) | payer MEDICARE, SELFPAY ==
[2024-09-15 19:22] VITALS: BMI 28.8
[2024-09-21 12:02] LABS: International Normalized Ratio 3.1
[2024-09-23 12:43] LABS: International Normalized Ratio 3.9; Prothrombin Time (Protime)PT. 39.4 SECONDS (11.7-14.9)
[2024-09-28 10:41] LABS: International Normalized Ratio 1.4; Prothrombin Time (Protime)PT. 17.3 SECONDS (11.7-14.9)
[2024-10-02 11:19] LABS: International Normalized Ratio 2.1; Prothrombin Time (Protime)PT. 24.2 SECONDS (11.7-14.9)
== END 2024-10-02 18:00 | disposition home or self-care (01) ==
LOC: LAB 10:01
PROVIDERS: PCP Internal Medicine; Referring Provider Internal Medicine; Visit Provider Internal Medicine
DX: Z79.01 Long term (current) use of 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s (principal)
CPT/HCPCS: 36415; 85610

== ENCOUNTER 2024-10-09 09:15 | Outpatient (RCR) | payer MEDICARE, SELFPAY ==
[2024-09-09 00:47] VITALS: BP 130/80; BP 136/72; BP 148/70; BP 150/72; BMI 30.1
--- NOTE | 2024-10-05 11:12 | CR.ITP_ITS ---
Nutrition - Initial Assessment Program Goals Nutrition Program Goals Patient has diagnosis of Hyperlipidemia (ICD E78)?: Yes Weight Mgt (Other Care) Height: 6 ft Weight:: 211 lb 8 oz BMI: 28.6 Core - Initial Assessment Hypertension Resting Blood Pressure:: 124/58 [employer] Hypertension Guidelines Psychosocial - Initial Assess Target Goals Target Goals Psychosocial Test phq-9 Severity See PHQ-9 Score: 6 Referral to Behavioral Health PS - Interventions: No: Referral to Behavioral Health if PHQ-9 score >9:, No: Referral to [facility], No: Referral to Physician if PHQ-9 if score is 5-9: and No: Attend Stress Management Classes Patient Health Questionnaire PHQ-9 Screening Discharge Assessment: 1. Little interest or pleasure in doing things: Several days 2. Feeling down, depressed, or hopeless: Not at all 3. Trouble falling or staying asleep, or sleeping too much: Not at all 4. Feeling tired or having little energy: More than half the days 5. Poor appetite or overeating: Nearly every day 6. Feeling bad about yourself -- or that you are a failure or have let yourself or your family down: Not at all 7. Trouble concentrating on things, such as reading the newspaper or watching television: Not at all 8. Moving or speaking so slowly that other people could have noticed. Or the opposite - being so fidgety or restless that you have been moving around a lot more than usual: Not at all 9. Thoughts that you would be better off , or of hurting yourself in some way: Not at all Total Score: 6 Self-Efficacy 6-Item Scale Discharge Assessment: We would like to know how confident you are in doing certain activities. Please select your confidence level for: Fatigue Select Number: 10 Physical Discomfort or Pain Select Number: 7 Emotional Distress Select Number: 10 Other Symptoms or Health Problems Select Number: 7 Different Tasks and Activities Select Number: 7 Medication Select Number: 10 Total Score:: 8 Nutrition Survey Nutrition Survey Instructions Scoring Instructions Exercise - 90-day Assessment Physician Prescribed Exercise Target Heart Rate:: 88-118 30-day Reassessments 30 day Reassessments:: Progressing Exercise - Final/Discharge Visit Date of Eval: 10/05/24 (still has 5 sessions to complete) Session #:: 31 Physician Prescribed Exercise Frequency: 3x/week for 12 weeks [36 sessions] Intensity: 60-80% of age predicted maximum heart rate reserve Duration: 30 - 45 minutes METs - Progression 0.5-1.0 weekly:: 0.5 Current METSs:: 4.1 Target Heart Rate:: 88-118 Target RPE 12-16:: 12-16 Current RPE:: 12 Maximum Heart Rate:: 104 Resting Blood Pressure: 124/58 Maximum Exercise Blood Pressure: 146/60 EKG Type: NSR Current Physical Activity or Exercising minutes: 30 mins per session Outcomes & Goals Goals:: Verbalizes understanding of THR, RPE & goal METS by session 6, Documents in home exercise log/reports 30 min aerobic 5 day/wk by DC and Demonstrates accurate pulse taking by DC Intervention & Plan Exercise Program Goals: Instruct on personal THR & RPE, Instruct on MET level & personal MET goal, Show patient to take own pulse /validate performance until accurate and Instruct on home exercise 30-day Reassessments 30 day Reassessments:: Met Reassessment Notes & Comments:: Patient is continuing to increase exercise workloads, temporarily decreased workloads due to sickness, but is back to prescribed levels. Physical Activity Home Exercise Physical Activity - Home Exercise: Safe Exercise, Warm-up, Self-monitoring, Cool-Down, Home Exercise > 30 min Daily and Sitting Time <3 hours/daily Outcomes & Goals Outcomes/Goals: Demonstrates correct Warm-up/exercise Cool-Down (S3) if = 2.5 METs, Verbalizes symptoms of exercise intolerance by Session 3 (S3) and Demonstrate safe equipment use (S3) & follows exercise prescrition (6) Intervention & Plan Plan/Intervention: Instruct warm-up & cool-down if exercising at > 2 METs, Instruct on symptoms of exercise intolerance & actions to take, Instruct & monitor on saf and Assess intial functional capacity & safety risk 30-day Reassessments 30 day Reassessments:: Met Reassessment Notes & Comments:: Patient demonstrates understanding of importance of warm up and cool down during exercise. continuing to work toward increasing workloads at a safe level. Nutrition - 30-Day Assessment Weight Mgt (Other Care) Height: 6 ft Weight:: 211 lb 8 oz BMI: 28.6 Nutrition - 60-Day Assessment Weight Mgt (Other Care) Height: 6 ft Weight:: 211 lb 8 oz BMI: 28.6 Core - 30-Day Assessment Hypertension [employer] Hypertension Guidelines Reassessment Notes & Comments:: Pt BP's are WNL while exercising. Core - Final Assessment Visit Date of Eval: 10/05/24 (pt has 5 more sessions left) Medication Compliance Preventative Medication(s):: Statin/lipid and Warfarin/Coumadin H/O mental health issues: depression, anxiety, or addiction?: No Doesn?t believe in the benefits of treatment?: No Believes medications are unnecessary or harmful?: No Has a concern about medication side effects?: No Expresses concern over the cost of medications?: No Outcomes/Goals: Verbalizes medications,desired effect & common side effects @ DC, Pt self-reports following medication regimen and Keeps card in wallet w/medications listed by DC Interventions/plans: Instruct on medication effects & side effects, Review medication list w/patient every two weeks and Instruct importance of taking meds as ordered & assist problem solving 30-day Reassessments:: Met Reassessment Notes & Comments:: taking medication as prescribed. no concerns of side effects at this time. Tobacco Use Tobacco Use: Cigarettes How many cigarettes do you smoke per day?: 10 Years Smokin Do you use smokeless tobacco?: No Outcomes/Goals: Smoking cessation achieved or maintained by discharge and Identify aids/strategies for achieving smoking cessation by session 6 Interventions/plan: Instruct on effects of smoking & provide smoking cessation resource, Assist pt to set quit date & provide encouragement, Assist pt to develop strategies to achieve/maintain quit date and Assist pt w/nicotine replacement & medication for cessation success 30 day Reassessments:: Progressing Reassessment Notes & Comments:: continue to encourage patient to quit smoking, attended smoking cessation education class. Hypertension Hypertension Diagnosis:: Hypertension ICD-10 I10 Resting Blood Pressure:: 124/58 [employer] Hypertension Guidelines Peak Exercise Blood Pressure:: 146/60 Outcomes/Goals: Able to verbalize/achieve optimal blood pressure <130/80 and Incorporates diet changes & exercise for blood pressure control by DC Interventions/plan: Instruct on optimal blood pressure, hypertension & medications, Instruct on effects of sodium, alcohol, stress, exercise &hypertension and Other additional plan/interventions 30 day Reassessments:: Progressing Reassessment Notes & Comments:: Pt BP's are WNL while exercising. Tobacco Cessation Referral Individual Education/Counseling:: No Education Schedule Given:: Yes Core - 90 Day Assessment Hypertension [employer] Hypertension Guidelines Reassessment Notes & Comments:: Pt BP's are WNL while exercising. Core - 60-Day Assessment Tobacco Use How many cigarettes do you smoke per day?: 10 Years Smokin Reassessment Notes & Comments:: continue to encourage patient to quit smoking, attended smoking cessation education class. Hypertension Resting Blood Pressure:: 124/58 [employer] Hypertension Guidelines Psychosocial - 30-Day Assess Target Goals Target Goals Referral to Behavioral Health PS - Interventions: No: Referral to Behavioral Health if PHQ-9 score >9:, No: Referral to [facility], No: Referral to Physician if PHQ-9 if score is 5-9: and No: Attend Stress Management Classes Psychosocial - 60-Day Assess Target Goals Target Goals Referral to Behavioral Health PS - Interventions: No: Referral to Behavioral Health if PHQ-9 score >9:, No: Referral to [facility], No: Referral to Physician if PHQ-9 if score is 5-9: and No: Attend Stress Management Classes Psychosocial - 90-Day Assess Target Goals Target Goals Referral to Behavioral Health PS - Interventions: No: Referral to Behavioral Health if PHQ-9 score >9:, No: Referral to [facility], No: Referral to Physician if PHQ-9 if score is 5-9: and No: Attend Stress Management Classes Psychosocial - Final Assessmen VIsit Date of Eval: 10/05/24 History of previous Mental disease:: No Target Goals Target Goals Psychosocial Test Tool Used:: PHQ-9 Questionnaire phq-9 Severity See PHQ-9 Score: 6 Referral to Behavioral Health PS - Interventions: No: Referral to Behavioral Health if PHQ-9 score >9:, No: Referral to [facility], No: Referral to Physician if PHQ-9 if score is 5-9: and No: Attend Stress Management Classes Outcomes/Goals: See list Psychosocial Outcomes/Goals:: ID's personal stressors & 2 strategies to manage stress by discharge and Other Additional outcome/goals: Intervention/Plan: See List Interventions/Plan:: Assess stressors,coping strategies & signs of derpression on admission, Instruct/assist pt to develop coping & personal stress Mgt strategies, Refer to Behavioral Health if appropriate, Refer to Physician if appropriate, Instruct patient to recognize signs & symptoms of depression and Instruct patient to recog 30-day Reassessments: 30 day Reassessments:: Met Reassessment Notes & Comments:: patient attends stress management education classes, voices no mental health concerns at this time. has hobbies that he does with family that he enjoys. Nutrition - 90-Day Assessment Weight Mgt (Other Care) Height: 6 ft Weight:: 211 lb 8 oz BMI: 28.6 Nutrition - Final Assessment Program Goals Patient has diagnosis of Hyperlipidemia (ICD E78)?: Yes Visit Date of Assessment:: 10/05/24 (pt still has 5 sessions to complete) Cholesterol/Lipids (Other Core Measures) Determine presence & major risk factors that modify LDL goal: Cigarette smoking (former), Hypertension or hypertensive medication, Family history of premature CHD in Male < 55 years: female <65 yearsFa and Age men > 45 years; women >/= 55 years Outcomes/Goals: Pt IDs own risk factors & lifestyle modifications by Session 10, Verbalizes symptoms of angina & response by session 3. and Pt independently manages Intervention/Plan: Advocate for lipid panel cholesterol medication if applicable, Instruct on personal lipid levels & lipid goals/NCEP guidelines and Instruct on cholesterol 30-day Reassessments:: Met Reassessment Notes & Comments:: attended dietary class, continuing to work toward weight loss goal. he is down 11lbs. Diabetes (Other Core Measures) Diabetes Type: Not Applicable Weight Mgt (Other Care) Height: 6 ft Weight:: 211 lb 8 oz BMI: 28.6 Outcomes/Goals: Pt sets, maintains & shows weight loss goal & trend during rehab Intervention/Plan: Instruct on ideal BMI & set weight loss goal w/patient, Assist pt to ID & incorporate diet changes for weight loss by S9, Refer to Structured Weight Loss program as appropriate and Encourage goal of using 250- 300dcal per session for weight loss 30 day Reassessments:: Met Reassessment Notes & Comments:: continues to work toward weight loss goal. Healthy Eating Habits Will attend diet classes:: Yes Outcomes/Goals:: Consume diet rich in vegs,fruits,whole grain/high fiber,fish,lean meat, Limit sat/trans fats,cholesterol & added salts & sugars and Other additional outcome/goals: Intervention/Plan:: Assess current eating habits and Other Additional plan/interventions 30-day Reassessments:: Met Reassessment Notes & Comments:: attended dietary class. working on heart healthy diet. Education Gave educational materials for:: Signs & symptoms of hypoglycemia, Signs & symptoms of hyperglycemia, Relate diabetes to coronary artery disease and Healthy eating
[2024-10-05 11:20] VITALS: BP 124/58
[2024-10-05 11:35] VITALS: BP 124/58; BMI 28.6
== END 2024-10-09 23:59 ==
LOC: CR 09:15
PROVIDERS: PCP Internal Medicine; Referring Provider Internal Medicine Cardiovascular Disease; Visit Provider Internal Medicine Cardiovascular Disease
DX: Z95.2 Presence of prosthetic heart valve (principal); I10 Essential (primary) hypertension; I35.0 Nonrheumatic aortic (valve) stenosis; J44.9 Chronic obstructive pulmonary disease, unspecified; G47.33 Obstructive sleep apnea (adult) (pediatric)

== ENCOUNTER 2024-11-06 10:01 | Outpatient (RCR) | payer MEDICARE, SELFPAY ==
[2024-10-10 02:57] VITALS: BMI 28.8
[2024-10-23 12:46] LABS: International Normalized Ratio 2.3
[2024-11-06 12:36] LABS: International Normalized Ratio 2.2; Prothrombin Time (Protime)PT. 24.9 SECONDS (11.7-14.9)
== END 2024-11-06 23:59 ==
LOC: BIMLAB 10:01
PROVIDERS: PCP Internal Medicine; Referring Provider Internal Medicine; Visit Provider Internal Medicine
DX: Z79.01 Long term (current) use of 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s (principal); J44.9 Chronic obstructive pulmonary disease, unspecified; R10.9 Unspecified abdominal pain
CPT/HCPCS: 36415; 85610

== ENCOUNTER → 2024-11-11 | Outpatient (CLI) | payer MEDICARE, SELFPAY ==
[2024-11-07 02:39] VITALS: BMI 28.6
[2024-11-11 12:34] LABS: Absolute Neutrophil Count 3.5 X10^3/uL (2.0-7.7); Basophil# 0.03 X10^3/uL; Basophil% 0.5 % (0-1); Eosinophil# 0.13 X10^3/uL; Eosinophils% 2.1 % (0-5); Hematocrit 47.1 % (40-54); Hemoglobin 15.4 g/dL (13.0-16.5); Lymphocyte % 30.7 % (19-41); Mean Corp Hgb Conc 32.7 g/dL (32-36); Mean Corpuscular Volume 101.1 fL (80-94); Mean Platelet Vol. 10.2 fl (6.2-12.0); Monocyte# 0.65 X10^3/uL; Monocyte% 10.5 % (0-10); NRBC Flagged by Analyzer 0 % (0-5); Neutrophil # 3.45 X10^3/uL (2.7-7.7); Neutrophil % 55.9 % (47-70); Platelet Count 148 K/mm3 (150-450); RBC Distribution Width CV 15.1 % (11.6-14.6); Red Blood Count 4.66 M/mm3 (4.6-6.2); White Blood Count 6.2 K/mm3 (4.4-11.0)
[2024-11-11 13:01] LABS: Anion Gap 12 (5-15); BUN 12 mg/dL (4-19); BUN/Creat Ratio 12.2 RATIO (10-20); Calcium,Total 9.7 mg/dL (7.6-11.0); Carbon Dioxide 24.4 mmol/L (21.0-32.0); Chloride 102 mmol/L (98-108); Creatinine, Serum 0.99 mg/dL (0.70-1.20); EST Glomerular Filtration Rate 81 (>60); Glucose 100 mg/dL (70-99); PSA,Total - Annual Screen 0.29 ng/mL (0.02-4.00); Potassium 4.2 mmol/L (3.3-5.1); Sodium Level 138 mmol/L (133-145)
== END | disposition home or self-care (01) ==
LOC: BIMLAB 11:19
PROVIDERS: PCP Internal Medicine; Referring Provider Internal Medicine; Visit Provider Internal Medicine
DX: Z12.5 Encounter for screening for malignant neoplasm of prostate (principal); J44.9 Chronic obstructive pulmonary disease, unspecified; N40.0 Benign prostatic hyperplasia without lower urinary tract symptoms; K21.9 Gastro-esophageal reflux disease without esophagitis
CPT/HCPCS: 36415; 80048; 84153; 85025; G0103

== ENCOUNTER → 2024-12-29 | Outpatient (CLI) | payer MEDICARE, SELFPAY ==
[2024-11-07 02:39] VITALS: BMI 28.6
--- NOTE | 2024-12-29 07:11 | CT_ITS ---
PROCEDURE: LOW DOSE CT LUNG SCREENING 12/29/2024 REASON FOR EXAM: SMOKER TECHNIQUE: Low Dose CT Lung screening without contrast. Coronal and Sagittal reconstruction series were provided. One or more dose reduction techniques were used (e.g., Automated exposure control, adjustment of the mA and/or kV according to patient size, use of iterative reconstruction technique). REFERENCE LINK: [facility] Lung-RADS RADIATION DOSE SUMMARY: CTDlvol: 4 mGy DLP: 150 mGycm COMPARISON: None. FINDINGS: PULMONARY NODULES: (Only nodules >3mm are reported). No pulmonary nodule or mass lesion is noted. Subsegmental atelectatic changes are noted in the right middle lobe and bilateral lower lobes. Status post TAVR. Moderate coronary artery calcifications. Normal unenhanced main pulmonary artery and right and left pulmonary arteries. Normal bilateral peripheral pulmonary arteries. Normal thoracic aorta and visualized great vessels. There is no demonstrated aortic aneurysm. Normal heart and pericardium. Normal mediastinum. Normal hilar regions. Normal visualized trachea and bronchi. Normal pleura. Normal visualized upper abdomen. CT/Low Dose CT Lung Screening IMPRESSION: Coronary artery calcification (CAC) is is present Lung-RADS Category: 2 BENIGN (BASED ON IMAGING FEATURES OR INDOLENT BEHAVIOR). RECOMMEND 12-MONTH SCREENING LDCT. Other Significant Findings: None. Reading Location[facility] [id number]
== END | disposition home or self-care (01) ==
LOC: CT 07:11
PROVIDERS: PCP Internal Medicine; Referring Provider Nurse Practitioner Acute Care; Visit Provider Nurse Practitioner Acute Care
DX: Z12.2 Encounter for screening for malignant neoplasm of respiratory organs (principal); F17.210 Nicotine dependence, cigarettes, uncomplicated
CPT/HCPCS: 71271

== ENCOUNTER 2025-02-05 09:43 | Outpatient (RCR) | payer MEDICARE, SELFPAY ==
[2024-11-07 02:39] VITALS: BMI 28.6
[2025-02-05 12:52] LABS: International Normalized Ratio 2.2; Prothrombin Time (Protime)PT. 25.3 SECONDS (11.7-14.9)
== END 2025-02-06 23:59 ==
LOC: BIMLAB 09:43
PROVIDERS: PCP Internal Medicine; Referring Provider Internal Medicine; Visit Provider Internal Medicine
DX: Z79.01 Long term (current) use of 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s (principal)
CPT/HCPCS: 36415; 85610

== ENCOUNTER 2025-03-18 13:50 | Outpatient (RCR) | payer MEDICARE, SELFPAY ==
[2024-11-07 02:39] VITALS: BMI 28.6
[2025-03-18 15:53] LABS: Prothrombin Time (Protime)PT. 27.1 SECONDS (11.7-14.9)
== END 2025-04-08 23:59 ==
LOC: BIMLAB 13:50
PROVIDERS: PCP Internal Medicine; Referring Provider Internal Medicine; Visit Provider Internal Medicine
DX: Z79.01 Long term (current) use of 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s (principal)
CPT/HCPCS: 36415; 85610

== ENCOUNTER 2025-04-23 10:42 | Emergency (ER) | payer MEDICARE, SELFPAY ==
[2024-11-07 02:39] VITALS: BMI 28.6
[2025-04-23 10:44] VITALS: BP 126/73; PULSE 63; RESP 16; TEMP 36.7; O2SAT 98
[2025-04-23 10:47] VITALS: BP 144/75; PULSE 49; RESP 16; TEMP 36.4; O2SAT 97; BMI 30.9
[2025-04-23 12:47] VITALS: BP 142/73; PULSE 60; RESP 18; TEMP 36.6; O2SAT 97
--- NOTE | 2025-04-23 12:57 | EDS_ITS ---
HPI <TYESHA Augustine - Last Filed: 04/23/25 17:56> History of Present Illness Chief Complaint: Cellulitis Narrative Narrative: 74-year-old male with PMH of HTN, COPD, GERD, DVT, TAVR on warfarin states about 2 weeks ago he developed redness and swelling of his left lower leg. He states has gotten recurrent cellulitis in this leg yesterday. He started doxycycline and Keflex 2 days ago and was told to present to the ED if it worsened after 48 hours. He does not feel like it is improving and it feels more painful. There is a small scrape on his somers which she is not sure how he acquired. He denies fever or chills. He has a history of blood clots in the left leg after knee surgery and states he is compliant with warfarin. PFSH <TYESHA Augustine - Last Filed: 04/23/25 17:56> [facility], LATER [facility] Medical History Sinusitis Left leg cellulitis Asthmatic bronchitis with exacerbation Allergic reaction Hyperlipidemia Dark stools Generalized anxiety disorder GI bleed Cough Shortness of breath Acute sinusitis, unspecified Arterial insufficiency Orthostasis Hypotensive episode Recurrent epistaxis Lymphadenopathy Nonrheumatic aortic (valve) stenosis with insufficiency Essential hypertension Health care maintenance Colon cancer screening Oral thrush Upper respiratory tract infection COVID-19 (07/2021) Nail avulsion, toe Urinary frequency Dysuria Post-phlebitic syndrome 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 reflux disease) [facility]CC current use of 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 Skin lesion Intermittent claudication Hernia Carotid artery stenosis BPH (benign prostatic hyperplasia) Hemorrhoids Obesity Peripheral neuropathy LIZA (obstructive sleep apnea) Bronchitis Chronic sinusitis Hypersomnia Home Medications ?Medication ?Instructions ?Recorded ?Last Taken ?Type calcium carbonate (Calcium 600) 600 mg PO DAILY SUPPLE MENT 08/24/19 12/23/23 History zinc sulfate 50 mg zinc (220 mg) 50 mg PO DAILY PRN DHILLON PPLEMENT 09/25/23 Unknown History capsule albuterol sulfate 90 mcg/actuation 1 inh inhalation Q6 H PRN shortness 09/28/23 10/25/23 Rx aerosol inhaler of breath or wheezing #8.5 g nba essential oil 1 drp .Route PRN PRN calming 10/21/23 Unknown History ipratropium 0.5 mg-albuterol 3 mg 3 ml inhalation Q6H PRN shortness 11/22/23 Unknown Rx (2.5 mg base)/3 mL nebulization of breath or wheezing #90 mL soln Handicap Placard #1 ea 12/09/23 Unknown Rx warfarin 6 mg tablet 6 mg PO MO blood thinner Unknown History pantoprazole 40 mg tablet,delayed 40 mg PO DAILY PRN i ndigestion 07/27/24 Unknown History release ascorbic acid (vitamin C) 1,000 mg 1 g PO DAILY vitami n 09/15/24 Unknown History tablet (Vitamin C) cholecalciferol (vitamin D3) 25 1,000 unit PO DAILY vi tamin 09/15/24 Unknown History mcg (1,000 unit) tablet (Vitamin D3) budesonide 160 mcg-glycopyr 9 2 inh inhalation BID Flu #10.7 12/16/24 Unknown Rx mcg-formot 4.8 mcg/actuation HFA grams inhaler (Breztri Aerosphere) gabapentin 300 mg capsule 300 mg PO BID NERVE PAIN #60 caps 12/28/24 Unknown Rx rosuvastatin 20 mg tablet 20 mg PO DAILY CHOLESTEROL #90 12/28/24 Unknown Rx tabs hydrochlorothiazide 25 mg tablet 25 mg PO DAILY diuret ic #60 tabs 04/09/25 Unknown Rx warfarin 4 mg tablet 4 mg PO SUTUWETHFRSA previou s 04/09/25 Unknown Rx blood clots #90 tabs cephalexin 500 mg capsule 500 mg PO TID 7 days #21 cap s 04/21/25 Unknown Rx doxycycline monohydrate 100 mg 100 mg PO BID #14 tabs 04/21/25 Unknown Rx tablet Allergy/AdvReac Type Severity Reaction Status Date / Time pseudoephedrine (From Allergy Severe Rash Verified 04/23/25 10:47 Sudafed) Iodinated Contrast Media AdvReac Severe Other Verified 04/23/25 10:47 (Iodinated Contrast Media - IV Dye) oxycodone AdvReac Other Verified 04/23/25 10:47 Family History Father Lung cancer Uncle Cancer Grandfather Myocardial infarction Grandmother Myocardial infarction Mother Myocardial infarction, Onset Age: 90 Surgical History S/P TAVR (transcatheter aortic valve replacement) (02/17/24) History of transurethral resection of prostate (~01/2020) History of wisdom tooth extraction History of arthroscopy of left knee Status post hammer toe correction History of nasal polypectomy History of umbilical hernia repair History of back surgery Social History Smoking Status: Current every day smoker tobacco type: cigarettes Tobacco: How many years used: 50 second hand exposure: Yes quit status: considering quitting alcohol intake: current alcohol intake frequency: holidays/special occasions only substance use type: does not use caffeine: Yes Type: coffee Number of servings: 2 and tea Number of servings: 1 what type of physical activity do you participate in: none ROS <TYESHA Augustine - Last Filed: 04/23/25 17:56> ROS ED ROS Narrative Constitutional: Negative for fever, chills, malaise. CVS: Negative for chest pain. Respiratory: Negative for shortness of breath. EXAM <TYESHA Augustine - Last Filed: 04/23/25 17:56> Physical Exam Narrative Exam Narrative: CONST: Patient sitting in no acute distress. EYES: Normal inspection. NECK: Normal inspection. RESP: No respiratory distress, CTAB. CVS: Regular rate and rhythm, no murmur, no gallop. SKIN: Color normal, no rash, warm, dry, intact. EXTREMITIES: Left leg is swollen from the knee down. There is dark reddish/purple discoloration of the anterior somers and 1 on the foot. No warmth or tenderness. NEURO: Alert and answering questions appropriately. PSYCH: Normal affect. Const Vital Signs: 04/23/25 10:44 04/23/25 10:47 04/23/25 12:47 Temperature 98.1 F 97.6 F L 97.8 F Temperature Source Oral Oral Oral Pulse Rate 63 49 L 60 Respiratory Rate 16 16 18 Blood Pressure 126/73 H 144/75 H 142/73 H Blood Pressure Mean 90 98 96 Pulse Ox 98 97 97 Oxygen Delivery Method Room Air Room Air Room Air 04/23/25 14:00 04/23/25 15:06 Temperature 98.2 F Temperature Source Pulse Rate 56 L 60 Respiratory Rate 18 18 Blood Pressure 147/104 H 140/78 H Blood Pressure Mean 118 98 Pulse Ox 96 94 Oxygen Delivery Method <Dr. Wayne Boone MD - Last Filed: 04/24/25 06:57> Physical Exam Const Vital Signs: 04/23/25 10:44 04/23/25 10:47 04/23/25 12:47 Temperature 98.1 F 97.6 F L 97.8 F Temperature Source Oral Oral Oral Pulse Rate 63 49 L 60 Respiratory Rate 16 16 18 Blood Pressure 126/73 H 144/75 H 142/73 H Blood Pressure Mean 90 98 96 Pulse Ox 98 97 97 Oxygen Delivery Method Room Air Room Air Room Air 04/23/25 14:00 04/23/25 15:06 Temperature 98.2 F Temperature Source Pulse Rate 56 L 60 Respiratory Rate 18 18 Blood Pressure 147/104 H 140/78 H Blood Pressure Mean 118 98 Pulse Ox 96 94 Oxygen Delivery Method MDM <TYESHA Augustine - Last Filed: 04/23/25 17:56> MDM MDM Narrative Medical decision making narrative: History from: Patient and spouse Consults: Spoke with his primary care office 74-year-old male presents with concern for left leg cellulitis. He appears well and nontoxic and is afebrile with normal vital signs. His left leg is swollen from the knee down with discoloration that is dark reddish/purple. There is no warmth, fluctuance or crepitus. 2+ DP pulses intact. He has no focal joint swelling or tenderness of not concern for septic joint. Ultrasound is negative for acute DVT. CBC and BMP are unremarkable. He has a normal white count of 6.3 and no left shift. INR is 2.2. Clinically I think this more looks like ve nous stasis dermatitis. Patient is very concerned at cellulitis but his labs are reassuring that there is no sign of major infection. He can continue with outpatient doxycycline and Keflex. At this time there is no indication for admission for IV antibiotics. He request that I contact his primary care office PA from Dr. Robles's office called back and I relayed the visit summary. Patient was given return precautions and discharged in stable condition. I have personally performed a face to face assessment of the patient and have reviewed the ISABEL Note. I performed a substantive portion of the visit including all aspects of the following. My olivier findings include: History is remarkable for pain and swelling that started April 12. He was seen by his PCP and treated with antibiotics for presumed cellulitis. He does have a small wound noted mid anterior left leg. Patient denies fever, chills night sweats. Patient denies drainage. Patient has no history of VTE HILARY. Patient has chronic edema. He does have history of venous insufficiency. Exam is remarkable for a swollen left leg from the knee down. There is discoloration. There is tenderness on the deep venous system. There is no warmth, lymphangitis or popliteal lymphadenopathy. There is no fullness in the popliteal fossa. Medical Decision Making differential diagnosis would be unilateral lymphedema, venous stasis dermatitis, DVT, findings are not consistent with cellulitis or failed outpatient therapy. Patient is on Coumadin. Will obtain PT/INR as well as CBC and electrolyte panel. Other additions or changes: Venous duplex study reveals chronic DVT at the TP trunk/junction. There is no acute DVT. History & Record Review Discussion w/independent historian: Patient and Family Additional record(s) reviewed:: Prior labs Lab Data Attestation: I reviewed the patient's lab results. Labs: Laboratory Results - last 24 hr 04/23/25 13:13 WBC 6.3 RBC 4.47 L Hgb 15.0 Hct 44.8 MCV 100.2 H MCH 33.6 H MCHC 33.5 RDW Std Deviation 55.0 H RDW Coeff of Marcelle 14.8 H Plt Count 193 MPV 10.3 Immature Gran % (Auto) 0.200 Neut % (Auto) 61.2 Lymph % (Auto) 26.6 [place] % (Auto) 10.2 H Eos % (Auto) 1.3 Baso % (Auto) 0.5 Absolute Neuts (auto) 3.8 Absolute Lymphs (auto) 1.66 Nucleated RBC % 0 PT 24.8 H INR 2.2 Sodium 135 Potassium 4.6 Chloride 99 Carbon Dioxide 24.6 Anion Gap 11 BUN 16 Creatinine 0.99 Estim Creat Clear Calc 76.70 Est GFR (MDRD) Non-Af 80 BUN/Creatinine Ratio 15.8 Glucose 99 Calcium 9.4 Radiography Diagnostic Testing: Clinical Impression(s) from Imaging Studies Venous Doppler Study 04/23/25 13:55 Interpretation Summary Chronic venous changes are noted in the left popliteal vein. The remainder of the left lower extremity deep venous system is patent and compressible. Valvular competence appears intact within the proximal deep venous system on the left . The left great saphenous vein appears patent and compressible segmentally. The right femoral vein is patent and compressible. Pulsatile flow is noted in the left lower extremity deep venous system, which may be indicative of elevated central venous pressure (i.e. congestive heart failure, pulmonary hypertension, etc.). Clinical correlation is advised. Ordering Physician: Wayne Boone Referring Physician: Wade Padilla Performed By: Laith Blankenship RVT <Dr. Wayne Boone MD - Last Filed: 04/24/25 06:57> [facility] Narrative Medical decision making narrative: I have personally performed a face to face assessment of the patient and have reviewed the ISABEL Note. I performed a substantive portion of the visit including all aspects of the following. My olivier findings include: History is remarkable for pain and swelling that started April 12. He was seen by his PCP and treated with antibiotics for presumed cellulitis. He does have a small wound noted mid anterior left leg. Patient denies fever, chills night sweats. Patient denies drainage. Patient has no history of VTE HILARY. Patient has chronic edema. He does have history of venous insufficiency. Exam is remarkable for a swollen left leg from the knee down. There is discoloration. There is tenderness on the deep venous system. There is no warmth, lymphangitis or popliteal lymphadenopathy. There is no fullness in the popliteal fossa. Medical Decision Making differential diagnosis would be unilateral lymphedema, venous stasis dermatitis, DVT, findings are not consistent with cellulitis or failed outpatient therapy. Patient is on Coumadin. Will obtain PT/INR as well as CBC and electrolyte panel. Other additions or changes: Venous duplex study reveals chronic DVT at the TP trunk/junction. There is no acute DVT. Lab Data Labs: Laboratory Results - last 24 hr 04/23/25 13:13 WBC 6.3 RBC 4.47 L Hgb 15.0 Hct 44.8 MCV 100.2 H MCH 33.6 H MCHC 33.5 RDW Std Deviation 55.0 H RDW Coeff of Marcelle 14.8 H Plt Count 193 MPV 10.3 Immature Gran % (Auto) 0.200 Neut % (Auto) 61.2 Lymph % (Auto) 26.6 [place] % (Auto) 10.2 H Eos % (Auto) 1.3 Baso % (Auto) 0.5 Absolute Neuts (auto) 3.8 Absolute Lymphs (auto) 1.66 Nucleated RBC % 0 PT 24.8 H INR 2.2 Sodium 135 Potassium 4.6 Chloride 99 Carbon Dioxide 24.6 Anion Gap 11 BUN 16 Creatinine 0.99 Estim Creat Clear Calc 76.70 Est GFR (MDRD) Non-Af 80 BUN/Creatinine Ratio 15.8 Glucose 99 Calcium 9.4 Radiography Diagnostic Testing: Clinical Impression(s) from Imaging Studies Venous Doppler Study 04/23/25 13:55 Interpretation Summary Chronic venous changes are noted in the left popliteal vein. The remainder of the left lower extremity deep venous system is patent and compressible. Valvular competence appears intact within the proximal deep venous system on the left . The left great saphenous vein appears patent and compressible segmentally. The right femoral vein is patent and compressible. Pulsatile flow is noted in the left lower extremity deep venous system, which may be indicative of elevated central venous pressure (i.e. congestive heart failure, pulmonary hypertension, etc.). Clinical correlation is advised. Ordering Physician: Wayne Boone Referring Physician: Wade Padilla Performed By: Laith Blankenship RVT Discharge Plan Triage Chief Complaint: Cellulitis ED Midlevel Provider: Marisela Emerson ED Provider: Wayne Boone Dx/Rx/DC Orders Clinical Impression: Acute venous stasis dermatitis of left lower extremity, Anticoagulant long-term use, Hyperlipidemia, Peripheral neuropathy, Chronic deep vein thrombosis (DVT) Instructions: CVI Prescriptions: No Action calcium carbonate [Calcium 600] 600 mg calcium (1,500 mg) tablet 600 mg PO DAILY pantoprazole 40 mg tablet,delayed release (DR/EC) 40 mg PO DAILY PRN (Reason: indigestion) Patient Comments: takes prn now essential oil 1 drp oil 1 drp .Route PRN PRN (Reason: calming) Rx Instructions: 1 drp as needed PRN; rub on skin prn jojoba, smoking sensation craving relief ipratropium-albuterol 0.5 mg-3 mg(2.5 mg base)/3 mL solution for nebulization 3 ml inhalation Q6H PRN (Reason: shortness of breath or wheezing) Qty: 90 3RF cephalexin 500 mg capsule 500 mg PO TID 7 Days Qty: 21 0RF doxycycline monohydrate 100 mg tablet 100 mg PO BID Qty: 14 0RF zinc sulfate 50 mg zinc (220 mg) capsule 50 mg PO DAILY PRN (Reason: SUPPLEMENT) Patient Comments: pt states takes zinc periodically albuterol sulfate 90 mcg/actuation HFA aerosol inhaler 1 inh inhalation Q6H PRN (Reason: shortness of breath or wheezing) Qty: 8.5 2RF cholecalciferol (vitamin D3) [Vitamin D3] 25 mcg (1,000 unit) tablet 1,000 unit PO DAILY ascorbic acid (vitamin C) [Vitamin C] 1,000 mg tablet 1 g PO DAILY (DME) Handicap Placard See Rx Instructions .ROUTE .MEDSUPPLY Qty: 1 0RF Rx Instructions: As directed, length of time 3 years warfarin 6 mg tablet 6 mg PO MO Breztri Aerosphere 160-9-4.8 mcg/actuation HFA aerosol inhaler 2 inh INHALATION BID Qty: 10.7 1RF gabapentin 300 mg capsule 300 mg PO BID Qty: 60 3RF rosuvastatin 20 mg tablet 20 mg PO DAILY Qty: 90 3RF hydrochlorothiazide 25 mg tablet 25 mg PO DAILY Qty: 60 1RF warfarin 4 mg tablet 4 mg PO SUTUWETHFRSA Qty: 90 1RF Protocol: Dose Management Protocol Text: Patient Instructed to take: warfarin 4 mg (1 Tab) on [place], [place], , , [place], [place] warfarin 4 mg (1.5 Tabs) on WE Rx Instructions: Take as directed Primary Care Provider: Wade Padilla Referrals: Wade Padilla MD [Primary Care Provider] - Activity Restrictions/Additional Instructions: The ultrasound showed no new blood clots. Blood work does not show any signs of infection. I think this could be swelling and skin discoloration from venous stasis which was treated with compression hose during the day and elevation of your legs above the level of your heart. You can continue the antibiotics prescribed by your doctor since you have had skin infections in the past to cover for potential cellulitis. Print Language: Malay Disposition Disposition: Home, Self Care Discharge Date/Time: 04/23/25 15:12
[2025-04-23 13:21] LABS: Hematocrit 44.8 % (40-54); Hemoglobin 15.0 g/dL (13.0-16.5); Immature Granulocytes Count 0.010 X10^3/uL (0.0-0.0); Mean Corp Hgb Conc 33.5 g/dL (32-36); Mean Corpuscular Volume 100.2 fL (80-94); Mean Platelet Vol. 10.3 fl (6.2-12.0); NRBC Flagged by Analyzer 0 % (0-5); Platelet Count 193 K/mm3 (150-450); RBC Distribution Width CV 14.8 % (11.6-14.6); RBC Distribution Width SD 55.0 fl (35.1-43.9); Red Blood Count 4.47 M/mm3 (4.6-6.2); White Blood Count 6.3 K/mm3 (4.4-11.0)
[2025-04-23 13:33] LABS: Prothrombin Time (Protime)PT. 24.8 SECONDS (11.7-14.9)
[2025-04-23 13:38] LABS: Anion Gap 11 (5-15); BUN 16 mg/dL (4-19); BUN/Creat Ratio 15.8 RATIO (10-20); Calcium,Total 9.4 mg/dL (7.6-11.0); Carbon Dioxide 24.6 mmol/L (21.0-32.0); Chloride 99 mmol/L (98-108); Estimated Creatinine Clearance 76.70 ml/min (50-250); Glucose 99 mg/dL (70-99); Potassium 4.6 mmol/L (3.3-5.1)
--- NOTE | 2025-04-23 13:55 | VDLE_ITS ---
Reason For Study Reason For Study: LLE Swelling / Pain RIGHT LEFT FV is compressible, spontaneous, phasic, competent GSV is normal. and demonstrates normal augmentation. CFV is compressible, spontaneous, competent, and Procedure demonstrates pulsatile venous flow. This is a venous duplex using B-mode, color flow and FV is compressible, spontaneous, competent and spectral Doppler. demonstrates pulsatile venous flow. Exam performed portable in ED. POP V is PARTIALLY COMPRESSIBLE, spontaneous, The exam was diagnostic. competent and demonstrates pulsatile venous flow. A preliminary report was called and/or faxed to Dr Jara intraluminal echoes are noted. Finding is Boone. consistent with CHRONIC DVT. T/P Trunk is compressible. PTV is compressible. LT PerV is compressible. VL/Venous Duplex US, Unilateral Interpretation Summary Chronic venous changes are noted in the left popliteal vein. The remainder of t he left lower extremity deep venous system is patent and compressible. Valvular competence appears intact within th e proximal deep venous system on the left . The left great saphenous vein appears patent and compressible segmentall y. The right femoral vein is patent and compressible. Pulsatile flow is noted in the left lower extremity deep venous s ystem, which may be indicative of elevated central venous pressure (i.e. congestive heart failure, pulmonary hype rtension, etc.). Clinical correlation is advised. Ordering Physician: Wayne Boone Referring Physician: Wade Padilla Performed By: Laith Blankenship, RVT
[2025-04-23 14:00] VITALS: BP 147/104; PULSE 56; RESP 18; O2SAT 96
[2025-04-23 15:06] VITALS: BP 140/78; PULSE 60; RESP 18; TEMP 36.8; O2SAT 94
== END 2025-04-23 15:12 | disposition home or self-care (01) ==
PROVIDERS: Physician Assistant; Emergency Provider Emergency Medicine; PCP Internal Medicine; Visit Provider Emergency Medicine
DX: I87.2 Venous insufficiency (chronic) (peripheral) (principal); J44.9 Chronic obstructive pulmonary disease, unspecified; I82.592 Chronic embolism and thrombosis of other specified deep vein of left lower extremity; E78.5 Hyperlipidemia, unspecified; I10 Essential (primary) hypertension; Z79.01 Long term (current) use of 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s; K21.9 Gastro-esophageal reflux disease without esophagitis; Z79.899 Other long term (current) drug therapy; Z79.51 Long term (current) use of inhaled steroids; Z95.5 Presence of coronary angioplasty implant and graft; F17.210 Nicotine dependence, cigarettes, uncomplicated
CPT/HCPCS: 80048; 85025; 85610; 93971; 99283; A4216

== ENCOUNTER 2025-04-28 09:23 | Outpatient (RCR) | payer MEDICARE, SELFPAY ==
[2024-11-07 02:39] VITALS: BMI 28.6
[2025-04-21 12:29] LABS: Prothrombin Time (Protime)PT. 27.3 SECONDS (11.7-14.9)
[2025-04-28 10:38] LABS: Prothrombin Time (Protime)PT. 26.9 SECONDS (11.7-14.9)
== END 2025-04-28 18:00 | disposition home or self-care (01) ==
LOC: LAB 09:23
PROVIDERS: PCP Internal Medicine; Referring Provider Internal Medicine; Visit Provider Internal Medicine
DX: Z79.01 Long term (current) use of 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s (principal)
CPT/HCPCS: 36415; 85610

== ENCOUNTER → 2025-05-19 | Outpatient (CLI) | payer MEDICARE, SELFPAY ==
[2024-11-07 02:39] VITALS: BMI 28.6
[2025-05-19 12:59] LABS: Prothrombin Time (Protime)PT. 26.5 SECONDS (11.7-14.9)
[2025-05-19 13:15] LABS: Cholesterol 138 mg/dL (<=200); Low Density Lipoprotein Calc. 83 mg/dL; Triglycerides 90 mg/dL; Very Low Density Lipoprotein 18 mg/dL (5-40); cholesterol:hdl ratio screen 3.71
== END | disposition home or self-care (01) ==
LOC: BIMLAB 08:51
PROVIDERS: PCP Internal Medicine; Referring Provider Internal Medicine; Visit Provider Internal Medicine
DX: Z79.01 Long term (current) use of 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s (principal); E78.5 Hyperlipidemia, unspecified
CPT/HCPCS: 36415; 80061; 85610

== ENCOUNTER 2025-05-31 13:15 | Inpatient (IN) | payer MEDICARE, SELFPAY ==
[2024-11-07 02:39] VITALS: BMI 28.6
[2025-05-31] VITALS (8 sets, daily range): BP systolic 99–159; BP diastolic 57–73; PULSE 63–97; RESP 16–19; TEMP 36.9–38.1; O2SAT 63–98; BMI 29.5; BMI 29.0; BMI 28.8
--- NOTE | 2025-05-31 15:05 | EDS_ITS ---
HPI History of Present Illness Chief Complaint: Lower Extremity Injury [facility] Medical History (Updated 05/19/25 @ 12:[address] Wade Padilla MD) Shoulder pain Sinusitis Left leg cellulitis Asthmatic bronchitis with exacerbation Allergic reaction Hyperlipidemia Dark stools Generalized anxiety disorder GI bleed Cough Shortness of breath Acute sinusitis, unspecified Arterial insufficiency Orthostasis Hypotensive episode Recurrent epistaxis Lymphadenopathy Nonrheumatic aortic (valve) stenosis with insufficiency Essential hypertension Health care maintenance Colon cancer screening Oral thrush Upper respiratory tract infection COVID-19 (07/2021) Nail avulsion, toe Urinary frequency Dysuria Post-phlebitic syndrome 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 reflux disease) [facility] current use of 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 Skin lesion Intermittent claudication Hernia Carotid artery stenosis BPH (benign prostatic hyperplasia) Hemorrhoids Obesity Peripheral neuropathy LIZA (obstructive sleep apnea) Bronchitis Chronic sinusitis Hypersomnia Home Medications ?Medication ?Instructions ?Recorded ?Last Taken ?Type calcium carbonate (Calcium 600) 600 mg PO DAILY SUPPLE MENT 08/24/19 12/23/23 History zinc sulfate 50 mg zinc (220 mg) 50 mg PO DAILY PRN DHILLON PPLEMENT 09/25/23 Unknown History capsule albuterol sulfate 90 mcg/actuation 1 inh inhalation Q6 H PRN shortness 09/28/23 10/25/23 Rx aerosol inhaler of breath or wheezing #8.5 g nba essential oil 1 drp .Route PRN PRN calming 10/21/23 Unknown History ipratropium 0.5 mg-albuterol 3 mg 3 ml inhalation Q6H PRN shortness 11/22/23 Unknown Rx (2.5 mg base)/3 mL nebulization of breath or wheezing #90 mL soln Handicap Placard #1 ea 12/09/23 Unknown Rx warfarin 6 mg tablet 6 mg PO MO blood thinner Unknown History pantoprazole 40 mg tablet,delayed 40 mg PO DAILY PRN i ndigestion 07/27/24 Unknown History release ascorbic acid (vitamin C) 1,000 mg 1 g PO DAILY vitami n 09/15/24 Unknown History tablet (Vitamin C) cholecalciferol (vitamin D3) 25 1,000 unit PO DAILY vi tamin 09/15/24 Unknown History mcg (1,000 unit) tablet (Vitamin D3) rosuvastatin 20 mg tablet 20 mg PO DAILY CHOLESTEROL #90 12/28/24 Unknown Rx tabs hydrochlorothiazide 25 mg tablet 25 mg PO DAILY diuret ic #60 tabs 04/09/25 Unknown Rx budesonide 160 mcg-glycopyr 9 2 inh inhalation BID PRN Flu 05/19/25 Unknown History mcg-formot 4.8 mcg/actuation HFA inhaler (Breztri Quorumphere) comp.stocking,thigh,long,large #2 ea 05/19/25 Unknown Rx gabapentin 300 mg capsule 300 mg PO QDAY NERVE PAIN Unknown History warfarin 4 mg tablet 4 mg PO DAILY previous blood clots 05/19/25 Unknown History Allergy/AdvReac Type Severity Reaction Status Date / Time pseudoephedrine (From Allergy Severe Rash Verified 05/31/25 13:15 Sudafed) Iodinated Contrast Media AdvReac Severe Other Verified 05/31/25 13:15 (Iodinated Contrast Media - IV Dye) oxycodone AdvReac Other Verified 05/31/25 13:15 Family History Father Lung cancer Uncle Cancer Grandfather Myocardial infarction Grandmother Myocardial infarction Mother Myocardial infarction, Onset Age: 90 Surgical History S/P TAVR (transcatheter aortic valve replacement) (02/17/24) History of transurethral resection of prostate (~01/2020) History of wisdom tooth extraction History of arthroscopy of left knee Status post hammer toe correction History of nasal polypectomy History of umbilical hernia repair History of back surgery Social History Smoking Status: Current every day smoker tobacco type: cigarettes Tobacco: How many years used: 50 second hand exposure: Yes quit status: considering quitting alcohol intake: current alcohol intake frequency: holidays/special occasions only substance use type: does not use caffeine: Yes Type: coffee Number of servings: 2 and tea Number of servings: 1 what type of physical activity do you participate in: none EXAM Physical Exam Const Vital Signs: 05/31/25 13:15 05/31/25 13:29 Temperature 99.4 F H 99.7 F H Temperature Source Oral Oral Pulse Rate 97 Respiratory Rate 16 Blood Pressure 159/73 H Blood Pressure Mean 101 Pulse Ox 96 Oxygen Delivery Method Room Air [facility] Narr[place] Medical decision making narrative: HISTORY OF PRESENT ILLNESS: Chief complaint: Leg pain 74year-old male presents concern for leg pain. History of cellulitis, anxiety, lipidemia, hypertension, status post TAVR, patient is on antibiotics per his report 2 weeks ago however per chart review is on antibiotics 1 month ago. At this time it was noted he was on doxycycline and Keflex. Patient notes over the last day symptoms have worsened. Complains of fever and chills. Remains of nausea but no vomiting. Patient is compliant to warfarin. REVIEW OF SYSTEMS: Pertinent positives: Left leg pain, nausea, fever, chills Pertinent negatives: Vomiting PHYSICAL EXAM: Nursing triage notes reviewed, Vital signs reviewed Constitutional: please see [facility] HENT: MMM Eyes: Pupils equal round and reactive to light, Extraocular muscles intact Neck: No stridor, no JVD, full neck ROM Lungs: Clear to auscultation, No wheezing or rales. No increased work of breathing, no conversational dyspnea, no accessory muscle use, no nasal flaring. No respiratory distress noted Heart: Regular rate and rhythm, No murmurs, No rubs and No gallops, 2+ distal pulses (radial, femoral, posterior tibial) in all extremities Abdomen: Soft, there is no tenderness, rigidity, rebound or guarding, no obvious peritoneal signs, no palpable pulsatile abdominal masses, no auscultated abdominal bruit : No CVAT Extremities: N slight swelling of left lower extremity, no calf tenderness Neuro: Intact sensation L1-S1 dermatomal distributions. Intact 5/5 strength in hip flexion (T12-L3). Knee extension (L2-L4). Ankle dorsiflexion (L4-L5). Ankle plantar flexion (S1). Great toe extension (L5). 2+ patellar and Achilles DTRs. Skin: Erythema noted from the left ankle up into the proximal tibia. There is some lymphangitic streaking as well. No crepitus or bullae noted. No palpable abscess noted. MEDICAL DECISION MAKING: Chief Complaint: please see HPI External records reviewed: Reviewed prior imaging studies: Reviewed venous duplex from April 2025 Show chronic venous changes left popliteal vein. There is no obvious left lower extremity DVT on the study factors affecting care: none [] Social determinants of health: History of tobacco use History obtained from others: none Consults: none [] MDM Narrative: Patient was initially hemodynamically stable, afebrile and nontoxic-appearing. Exam consistent with likely cellulitis. I considered the following differential diagnosis: Cellulitis, VTE, necrotizing fasciitis I obtained labs and images to further determine if the patient was suffering from a life-threatening etiology. Initially treat the patient with IV fluids, 4 mg IV Zofran, IV morphine, IV Toradol as well as vancomycin for empiric MRSA coverage. ALL IMAGES (IF OBTAINED) HAVE BEEN PERSONALLY REVIEWED AND INTERPRETED BY MYSELF. [] The patient and/or family, caregivers express understanding. The patient and/or family, caregivers agrees with the plan. Shared decision making: I will have a discussion with the patient and or visitors regarding risk/benefits of further testing or admission. They will be made aware of of the risk/benefits inherent in this decision they will be given the opportunity to voice understanding. Total critical care time today provided was at least 0 [] minutes. This excludes separately billable procedures. Critical care time (if documented) is secondary to the patient having high probability of clinically significant/life threatening deterioration in the patient's condition which required my urgent intervention. Impression: 1. Acute cellulitis 2. [] [] Dispo: [] This note was generated with [employer] dictation software. It may contain incorrect words, spelling, and punctuation that were not noted in review of the chart prior to signing. Discharge Plan Triage Chief Complaint: Lower Extremity Injury ED Provider: Michelet Clements Dx/Rx/DC Orders Prescriptions: No Action calcium carbonate [Calcium 600] 600 mg calcium (1,500 mg) tablet 600 mg PO DAILY pantoprazole 40 mg tablet,delayed release (DR/EC) 40 mg PO DAILY PRN (Reason: indigestion) Patient Comments: takes prn now essential oil 1 drp oil 1 drp .Route PRN PRN (Reason: calming) Rx Instructions: 1 drp as needed PRN; rub on skin prn jojoba, smoking sensation craving relief ipratropium-albuterol 0.5 mg-3 mg(2.5 mg base)/3 mL solution for nebulization 3 ml inhalation Q6H PRN (Reason: shortness of breath or wheezing) Qty: 90 3RF Breztri Aerosphere 160-9-4.8 mcg/actuation HFA aerosol inhaler 2 inh INHALATION BID PRN (Reason: Flu) gabapentin 300 mg capsule 300 mg PO QDAY warfarin 4 mg tablet 4 mg PO DAILY Protocol: Dose Management Protocol Text: Patient Instructed to take: warfarin 4 mg (1 Tab) on DHILLON, MO, TU, TH, FR, SA warfarin 4 mg (1.5 Tabs) on WE Rx Instructions: Take as directed (DME) comp.stocking,thigh,long,large Misc See Rx Instructions .Route Qty: 2 3RF Rx Instructions: As directed. 20 - 30 mmHg zinc sulfate 50 mg zinc (220 mg) capsule 50 mg PO DAILY PRN (Reason: SUPPLEMENT) Patient Comments: pt states takes zinc periodically albuterol sulfate 90 mcg/actuation HFA aerosol inhaler 1 inh inhalation Q6H PRN (Reason: shortness of breath or wheezing) Qty: 8.5 2RF cholecalciferol (vitamin D3) [Vitamin D3] 25 mcg (1,000 unit) tablet 1,000 unit PO DAILY ascorbic acid (vitamin C) [Vitamin C] 1,000 mg tablet 1 g PO DAILY (DME) Handicap Placard See Rx Instructions .ROUTE .MEDSUPPLY Qty: 1 0RF Rx Instructions: As directed, length of time 3 years warfarin 6 mg tablet 6 mg PO MO rosuvastatin 20 mg tablet 20 mg PO DAILY Qty: 90 3RF hydrochlorothiazide 25 mg tablet 25 mg PO DAILY Qty: 60 1RF Primary Care Provider: Wade Padilla Referrals: Wade Padilla MD [Primary Care Provider, Internal Medicine] Print Language: Belizean
--- NOTE | 2025-05-31 15:27 | VDLE_ITS ---
Reason For Study Reason For Study: Swelling LLE RIGHT LEFT CFV is compressible, spontaneous, phasic, competent GSV is normal. and demonstrates normal augmentation. CFV is compressible, spontaneous, phasic, competent, Procedure and demonstrates normal augmentation. This is a venous duplex using B-mode, color flow and FV is compressible, spontaneous, phasic, competent spectral Doppler. and demonstrates normal augmentation. Exam performed portable in ED. Lt PopV is partially compressible with bright A preliminary report was called and/or faxed to intraluminal echoes consistent with chronic DVT Patients RN. Lymph node noted Lt Groin measuring 0.87cm x 2.31cm. T/P Trunk is compressible. PTV is compressible. LT PerV is compressible. VL/Venous Duplex US, Unilateral Interpretation Summary Chronic venous changes are noted in the left popliteal vein, which is partially compressible and demonstrates bright intraluminal echogenicity. The remainder of the left lower extremity deep venou s system is patent and compressible. There is no evidence of left lower extremity acute deep vein thrombosis. Valvul ar competence appears intact within the proximal deep venous system on the left . The left great saphenous vein appears patent and compressible segmentally. The right common femoral vein is patent and compressible . A lymph node is noted in the left groin measuring 0.87 cm x 2.31 cm. Ordering Physician: Michelet Clements Referring Physician: Wade Padilla Performed By: Vanna Quintana, RDCS, RVT
[2025-05-31] MEDS: 0.9% Normal Saline (500mL Bag) 500 ML 999 ML IV (16:00)
[2025-05-31] MEDS: Vancomycin HCl 1,500 MG in 0.9% Normal Saline (500mL Bag) 500 ML 250 MG IV (16:00)
[2025-05-31 16:14] LABS: Hematocrit 46.4 % (40-54); Hemoglobin 15.6 g/dL (13.0-16.5); Immature Granulocytes Count 0.360 X10^3/uL (0.0-0.0); Mean Corp Hgb Conc 33.6 g/dL (32-36); Mean Corpuscular Volume 101.1 fL (80-94); Mean Platelet Vol. 9.7 fl (6.2-12.0); NRBC Flagged by Analyzer 0 % (0-5); POSITIVE DIFFERENTIAL YES; Platelet Count 142 K/mm3 (150-450); RBC Distribution Width CV 14.6 % (11.6-14.6); RBC Distribution Width SD 54.5 fl (35.1-43.9); Red Blood Count 4.59 M/mm3 (4.6-6.2); White Blood Count 13.9 K/mm3 (4.4-11.0)
--- NOTE | 2025-05-31 16:20 | RAD_ITS ---
PROCEDURE: TIBIA FIBULA 2 VIEWS 05/31/2025 REASON FOR EXAM: LEFT LEG PAIN TECHNIQUE: Procedure Code: RADTF Modality: DX Procedure: TIBIA FIBULA 2 VIEWS Laterality: FINDINGS: Possible lucency through the distal fibula. Dedicated ankle radiographs are recommended. The soft tissues are unremarkable. RAD/Tibia & Fibula 2 Views IMPRESSION: Osseous findings as above. Reading Location: [id number]
[2025-05-31 17:09] LABS: Prothrombin Time (Protime)PT. 29.3 SECONDS (11.7-14.9)
[2025-05-31 17:22] LABS: AST(SGOT) 49 U/L (<=37); Alanine Aminotransfer ALT/SGPT 21 U/L (<=46); Albumin, Serum 3.7 g/dL (3.4-4.8); Alkaline Phosphatase 57 U/L (40-129); Anion Gap 15 (5-15); BUN 14 mg/dL (4-19); BUN/Creat Ratio 13.0 RATIO (10-20); Calcium,Total 9.3 mg/dL (7.6-11.0); Carbon Dioxide 18.0 mmol/L (21.0-32.0); Chloride 98 mmol/L (98-108); Estimated Creatinine Clearance 70.94 ml/min (50-250); Globulin 3.7 g/dL (2.2-4.2); Glucose 82 mg/dL (70-99); Potassium 4.7 mmol/L (3.3-5.1)
[2025-05-31] MEDS: HYDROmorphone 0.5 MG/0.5 ML SYRINGE IV (17:35)
--- NOTE | 2025-05-31 17:40 | RAD_ITS ---
PROCEDURE: ANKLE MIN 3 VIEWS 05/31/2025 REASON FOR EXAM: LEFT DISTAL FIBULA ?LUCENCY TECHNIQUE: Procedure Code: RADANK Modality: DX Procedure: ANKLE MIN 3 VIEWS COMPARISON: None RAD/Ankle min 3 Views IMPRESSION: No acute fracture or dislocations. No significant degenerative changes. No large joint effusion. Mild diffuse soft tissue edema. No radiographic foreign body. Reading Location: [facility]
--- NOTE | 2025-05-31 18:18 | HP.PCM.HOS_ITS ---
HPI - General General Date of Admission: 05/31/25 Date of Service: 05/31/25 Chief Complaint: Left lower extremity pain and erythema HPI Narrative NAKUL BASSETT, is a 74-year-old male with a history of GERD, COPD, LIZA, VTE on Coumadin, previous TAVR presented [facility] ED 05/31/2025 due to leg pain. He was on doxycycline and Keflex for cellulitis several weeks ago but is now off and reports over the past day symptoms have worsened and now is having fevers and chills. In the ED temp up to 100.5, blood pressure 159/73 respirate 16, patient ended up being placed on 4 L nasal cannula saturating 93% after he was given pain medication. White blood cell count 13.9, lactic of 2.1, INR 2.1. Sodium 131 with a BUN of 14 creatinine 1.04. Tib-fib x-ray with possible lucency, through distal fibula so dedicated ankle xray. Given patient's worsening lower extremity cellulitis that progressed while he was in the ED hospitalist contacted for admission. Patient evaluated with family members at bedside. Reportedly patient's had chronic problems with his left lower extremity however since yesterday he has had increased redness and pain and a fever earlier today. Notes that yesterday he was needs deep and a [place] pond cleaning it and they are worried that that may have caused this. Notes chronic problems with shortness of breath and cough, intermittent headaches, some nausea. Aside from the fever and the increased lower extremity edema no other new or acute complaints [facility], [facility] Medical History (Updated 05/31/25 @ 18:56 by Heather Blanca) Acute sinusitis, unspecified Allergic reaction Arterial insufficiency Asthmatic bronchitis with exacerbation BPH (benign prostatic hyperplasia) Bronchitis Carotid artery stenosis Chronic sinusitis Colon cancer screening Cough COVID-19 (07/2021) CPAP (continuous positive airway pressure) dependence Dark stools DVT (deep venous thrombosis) Dysuria Essential hypertension Generalized anxiety disorder 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 reflux disease) GI bleed Health care maintenance Hemorrhoids Hernia Hyperlipidemia Hypersomnia Hypotensive episode Intermittent claudication Left leg cellulitis [facility] current use of 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 Lymphadenopathy Nail avulsion, toe Nonrheumatic aortic (valve) stenosis with insufficiency Obesity Oral thrush Orthostasis LIZA (obstructive sleep apnea) Peripheral neuropathy Post-phlebitic syndrome Recurrent epistaxis Shortness of breath Shoulder pain Sinusitis Skin lesion Sleep apnea Smoker Upper respiratory tract infection Urinary frequency Home Medications ?Medication ?Instructions ?Recorded ?Last Taken ?Type calcium carbonate (Calcium 600) 600 mg PO DAILY SUPPLE MENT 08/24/19 12/23/23 History zinc sulfate 50 mg zinc (220 mg) 50 mg PO DAILY PRN DHILLON PPLEMENT 09/25/23 Unknown History capsule albuterol sulfate 90 mcg/actuation 1 inh inhalation Q6 H PRN shortness 09/28/23 10/25/23 Rx aerosol inhaler of breath or wheezing #8.5 g nba essential oil 1 drp .Route PRN PRN calming 10/21/23 Unknown History ipratropium 0.5 mg-albuterol 3 mg 3 ml inhalation Q6H PRN shortness 11/22/23 Unknown Rx (2.5 mg base)/3 mL nebulization of breath or wheezing #90 mL soln Handicap Placard #1 ea 12/09/23 Unknown Rx warfarin 6 mg tablet 6 mg PO MO blood thinner Unknown History pantoprazole 40 mg tablet,delayed 40 mg PO DAILY PRN i ndigestion 07/27/24 Unknown History release ascorbic acid (vitamin C) 1,000 mg 1 g PO DAILY vitami n 09/15/24 Unknown History tablet (Vitamin C) cholecalciferol (vitamin D3) 25 1,000 unit PO DAILY vi tamin 09/15/24 Unknown History mcg (1,000 unit) tablet (Vitamin D3) rosuvastatin 20 mg tablet 20 mg PO DAILY CHOLESTEROL #90 12/28/24 Unknown Rx tabs hydrochlorothiazide 25 mg tablet 25 mg PO DAILY diuret ic #60 tabs 04/09/25 Unknown Rx comp.stocking,thigh,long,large #2 ea 05/19/25 Unknown Rx gabapentin 300 mg capsule 300 mg PO QDAY NERVE PAIN Unknown History warfarin 4 mg tablet 4 mg PO DAILY previous blood clots 05/19/25 Unknown History Allergy/AdvReac Type Severity Reaction Status Date / Time pseudoephedrine (From Allergy Severe Rash Verified 05/31/25 13:15 Sudafed) Iodinated Contrast Media AdvReac Severe Other Verified 05/31/25 13:15 (Iodinated Contrast Media - IV Dye) oxycodone AdvReac Other Verified 05/31/25 13:15 Family History Father Lung cancer Uncle Cancer Grandfather Myocardial infarction Grandmother Myocardial infarction Mother Myocardial infarction, Onset Age: 90 Surgical History History of arthroscopy of left knee History of back surgery History of nasal polypectomy History of transurethral resection of prostate (~01/2020) History of umbilical hernia repair History of wisdom tooth extraction S/P TAVR (transcatheter aortic valve replacement) (02/17/24) Status post hammer toe correction Social History Smoking Status: Current every day smoker tobacco type: cigarettes Tobacco: How many years used: 50 second hand exposure: Yes quit status: considering quitting alcohol intake: current alcohol intake frequency: holidays/special occasions only substance use type: does not use caffeine: Yes Type: coffee Number of servings: 2 and tea Number of servings: 1 what type of physical activity do you participate in: none ROS ROS Narrative General: Fever earlier today HENT: Intermittently some headaches, denies stuffy nose, denies sore throat EYES: Sensitivity to light after cataract surgery Resp: Chronic shortness of breath and cough with no change Cardiac: Denies chest pain GI: Denies abdominal pain, denies changes in bowel, blood but no nausea : Denies changes in urination Extremity: Chronic swelling in lower extremities MSK: Denies weakness Neuro: Denies any numbness/tingling Heme: Denies any bleeding or bruising Skin: Left lower extremity erythema and warmth Psychiatric: No complaints voiced Vital Signs Vital Signs Vital Signs: 05/31/25 13:15 05/31/25 13:29 05/31/25 15:48 Temperature 99.4 F H 99.7 F H 100.5 F H Temperature Source Oral Oral Oral Pulse Rate 97 Respiratory Rate 16 Blood Pressure 159/73 H Blood Pressure Mean 101 Pulse Ox 96 Oxygen Delivery Method Room Air Oxygen Flow Rate (L/min) 05/31/25 16:01 05/31/25 16:01 Temperature Temperature Source Pulse Rate Respiratory Rate Blood Pressure Blood Pressure Mean Pulse Ox 63 93 Oxygen Delivery Method Room Air Nasal Cannula Oxygen Flow Rate (L/min) 4 Weight Weight: 91.7 kg Body Mass Index (BMI) 29.0 Physical Exam Narrative General: Alert, oriented, no apparent distress HEENT: Atraumatic, normocephalic Eyes: Anicteric, normal conjunctiva, extraocular movements grossly intact Neck: Supple Respiratory: Diffuse wheezes, normal respiratory effort Cardiovascular: Regular rate and rhythm GI: Soft, nontender, nondistended Extremities: No edema Musculoskeletal: Moving all extremities Neuro: No overt focal neurological deficits Skin: No rashes appreciated Psych: Cooperative Results Lab / Micro Data 05/31/25 15:55 05/31/25 15:55 Labs: Laboratory Results - last 24 hr 05/31/25 15:55: WBC 13.9 H, RBC 4.59 L, Hgb 15.6, Hct 46.4, MCV 101.1 H, MCH 34.0 H, MCHC 33.6, RDW Std Deviation 54.5 H, RDW Coeff of Marcelle 14.6, Plt Count 142 L, MPV 9.7, Immature Gran % (Auto) 2.600 H, Neut % (Auto) 87.6 H, Lymph % (Auto) 4.2 L, [place] % (Auto) 5.3, Eos % (Auto) 0.1, Baso % (Auto) 0.2, Absolute Neuts (auto) 12.2 H, Absolute Lymphs (auto) 0.59 L, Nucleated RBC % 0, PT 29.3 H , INR 2.7, Sodium 131 L, Potassium 4.7, Chloride 98, Carbon Dioxide 18.0 L, Anion Gap 15, BUN 14, Creatinine 1.04, Estim Creat Clear Calc 70.94, Est GFR (MDRD) Non-Af 75, BUN/Creatinine Ratio 13.0, Glucose 82, Lactic Acid 2.1 H*, Calcium 9.3, Total Bilirubin 0.58, AST 49 H, ALT 21, Alkaline Phosphatase 57, Total Protein 7.4, Albumin 3.7, Globulin 3.7, Albumin/Globulin Ratio 1.0 Imaging Radiology Impression Venous Doppler Study 05/31/25 15:27 Interpretation Summary Chronic venous changes are noted in the left popliteal vein, which is partially compressible and demonstrates bright intraluminal echogenicity. The remainder of the left lower extremity deep venous system is patent and compressible. There is no evidence of left lower extremity acute deep vein thrombosis. Valvular competence appears intact within the proximal deep venous system on the left . The left great saphenous vein appears patent and compressible segmentally. The right common femoral vein is patent and compressible . A lymph node is noted in the left groin measuring 0.87 cm x 2.31 cm. Ordering Physician: Michelet Clements Referring Physician: Wade Padilla Performed By: Vanna Quintana, JATINCS, RVT Tibia/Fibula X-Ray 05/31/25 16:20 IMPRESSION: Osseous findings as above. Reading Location: [facility] Assessment & Plan Assessment/Plan (1) Left leg cellulitis: PLAN: Plan # Recurrent left lower extremity cellulitis -No draining lesions, somewhat generally tender -Tib-fib x-ray questioned a lucency in distal fibula and recommended dedicated imaging -Ankle x-ray obtained, unclear significance -Continue antibiotics, given patient said symptoms started after he was waiting in dirty quite pond water for several hours will cover broadly -Elevate lower extremity # Hypoxia in setting of history of COPD -pt placed on O2 after receiving pain medications -Is diffusely wheezing - Scheduled nebs and inhaled budesonide -Incentive spirometer # History of VTE -Patient chronically on Coumadin, INR 2.7 #GERD -Continue PPI #LIZA -Continue home NIPPV if applicable #Tobacco use -Advise cessation -Nicotine replacement available if desired #Hypertension - Patient with soft BP in the ED, hold hydrochlorothiazide #DVT ppx: Therapeutic on Coumadin Nevin Woodward MD Charges/Coding Visit Charges Inpatient E&M: 78286 Init Hosp L2
[2025-05-31 20:00] LABS: Reflex Lactate? Y
--- NOTE | 2025-05-31 20:04 | PCM.RX.CS ---
Consult Antibiotic Management Pharmacy has been consulted to manage selected antibiotic: Vancomycin Type of Intervention Type of Consult: New start Suspected Infection Suspected Infection: Skin/Soft tissue Labs Labs: Sodium 131 mmol/L (133-145) L 05/31/25 15:55 Potassium 4.7 mmol/L (3.3-5.1) 05/31/25 15:55 Chloride 98 mmol/L (98-108) 05/31/25 15:55 Carbon Dioxide 18.0 mmol/L (21.0-32.0) L 05/31/25 15:55 Anion Gap 15 (5-15) 05/31/25 15:55 BUN 14 mg/dL (4-19) 05/31/25 15:55 Creatinine 1.04 mg/dL (0.70-1.20) 05/31/25 15:55 Est GFR (MDRD) Non-Af 75 (>60) 05/31/25 15:55 BUN/Creatinine Ratio 13.0 RATIO (10-20) 05/31/25 15:55 Glucose 82 mg/dL (70-99) 05/31/25 15:55 Dosing Weight Weight used for dosin.3 kg Estimated Creatinine Clearance Estimated Creatinine Clearance: 70.9 Goal Trough Goal Trough: 15-20 mcg/mL Pharmacy Plan for Drug Dosing Pharmacy Plan for Drug Dosing: Pharmacy Service will continue to monitor and adjust dosing as required. NEW START IV VANCOMYCIN Consulting Physician: Dr. Woodward Indication: Left leg cellulitis Goal Trough: 15-20 SrCr: 1.04 CrCl: 70.9 Comments: Adjusted body weight: 80.3 kg Vancomycin Dose: 1250 mg Q12H with first dose 06/01 @ 0400 Pending Level: 06/02/25 @ 0330 Date/Time Labs Ordered Labs to be done on [date and time ordered]: 06/02/25 @ 0335
[2025-05-31] MEDS: 0.9% Saline Lock 10 ML Syringe IV ×2 (20:10→21:55)
[2025-05-31] MEDS: 0.9% Normal Saline (1000mL) 1,000 ML 50 ML IV (20:10)
[2025-05-31] MEDS: Warfarin (PBKC) 6 MG Tablet PO (20:11)
[2025-05-31] MEDS: Piperacil/Tazobactam 3.375 GM in 0.9% Normal Saline (50mL MB+) 50 ML IV (21:55)
[2025-06-01] VITALS (10 sets, daily range): BP systolic 96–119; BP diastolic 58–66; PULSE 50–81; RESP 14–20; TEMP 36.3–36.7; O2SAT 93–97
[2025-06-01] MEDS: HYDROmorphone 0.5 MG/0.5 ML SYRINGE IV ×2 (00:15→20:46)
[2025-06-01] MEDS: Vancomycin HCl 1,250 MG in 0.9% Normal Saline (250mL Bag) 250 ML 167 MG IV ×2 (03:38→17:05)
[2025-06-01] MEDS: Piperacil/Tazobactam 3.375 GM in 0.9% Normal Saline (50mL MB+) 50 ML IV ×3 (05:44→21:13)
[2025-06-01 06:20] LABS: Hematocrit 39.6 % (40-54); Hemoglobin 13.0 g/dL (13.0-16.5); Immature Granulocytes Count 0.090 X10^3/uL (0.0-0.0); Mean Corp Hgb Conc 32.8 g/dL (32-36); Mean Corpuscular Volume 103.4 fL (80-94); Mean Platelet Vol. 9.5 fl (6.2-12.0); NRBC Flagged by Analyzer 0 % (0-5); Platelet Count 123 K/mm3 (150-450); RBC Distribution Width CV 15.0 % (11.6-14.6); RBC Distribution Width SD 57.1 fl (35.1-43.9); Red Blood Count 3.83 M/mm3 (4.6-6.2); White Blood Count 14.5 K/mm3 (4.4-11.0)
[2025-06-01 06:27] LABS: Prothrombin Time (Protime)PT. 38.4 SECONDS (11.7-14.9)
[2025-06-01 06:45] LABS: Anion Gap 9 (5-15); BUN 24 mg/dL (4-19); BUN/Creat Ratio 17.2 RATIO (10-20); Calcium,Total 8.4 mg/dL (7.6-11.0); Carbon Dioxide 23.3 mmol/L (21.0-32.0); Chloride 102 mmol/L (98-108); Estimated Creatinine Clearance 52.94 ml/min (50-250); Glucose 109 mg/dL (70-99); Potassium 4.1 mmol/L (3.3-5.1)
--- NOTE | 2025-06-01 07:47 | PN.HOSP_ITS ---
Reason for Visit Chief Complaint: Left lower extremity pain and erythema Subjective Subjective Leg feels better. Objective Data Objective Data Vital Signs: Vital Signs Temp Pulse Resp BP Pulse Ox O2 Del Method O2 Flow Rate 36.6 C 56 L 14 108/58 L 96 Nasal Cannula 2 06/01/25 02:00 06/01/25 03:00 06/01/25 03:00 06/01/25 02:00 06/01/25 03:00 06/01/25 02:00 06/01/25 02:00 FiO2 21 06/01/25 03:00 Oxygen Flow Rate (L/min) 2 Oxygen Delivery Method Nasal Cannula Weight: 91.172 kg Body Mass Index (BMI) 28.8 Intake & Output: Intake and Output for Last 24 Hours 05/30/25 05/31/25 06/01/25 23:59 23:59 23:59 Intake Total 1030 / 1030 325 / 325 Output Total 450 / 450 Balance 1030 / 780 -125 / -125 Lab / Micro Data 06/01/25 05:54 06/01/25 05:54 Labs: Laboratory Results - last 24 hr 05/31/25 15:55: WBC 13.9 H, RBC 4.59 L, Hgb 15.6, Hct 46.4, MCV 101.1 H, MCH 34.0 H, MCHC 33.6, RDW Std Deviation 54.5 H, RDW Coeff of Marcelle 14.6, Plt Count 142 L, MPV 9.7, Immature Gran % (Auto) 2.600 H, Neut % (Auto) 87.6 H, Lymph % (Auto) 4.2 L, [place] % (Auto) 5.3, Eos % (Auto) 0.1, Baso % (Auto) 0.2, Absolute Neuts (auto) 12.2 H, Absolute Lymphs (auto) 0.59 L, Nucleated RBC % 0, PT 29.3 H , INR 2.7, Sodium 131 L, Potassium 4.7, Chloride 98, Carbon Dioxide 18.0 L, Anion Gap 15, BUN 14, Creatinine 1.04, Estim Creat Clear Calc 70.94, Est GFR (MDRD) Non-Af 75, BUN/Creatinine Ratio 13.0, Glucose 82, Lactic Acid 2.1 H*, Calcium 9.3, Total Bilirubin 0.58, AST 49 H, ALT 21, Alkaline Phosphatase 57, Total Protein 7.4, Albumin 3.7, Globulin 3.7, Albumin/Globulin Ratio 1.0 05/31/25 20:37: Lactic Acid 1.7 06/01/25 05:54: WBC 14.5 H, RBC 3.83 L, Hgb 13.0, Hct 39.6 L, MCV 103.4 H, MCH 33.9 H, MCHC 32.8, RDW Std Deviation 57.1 H, RDW Coeff of Marcelle 15.0 H, Plt Count 123 L, MPV 9.5, Immature Gran % (Auto) 0.600, Neut % (Auto) 82.8 H, Lymph % (Auto) 8.4 L, [place] % (Auto) 7.7, Eos % (Auto) 0.3, Baso % (Auto) 0.2, Absolute Neuts (auto) 12.0 H, Absolute Lymphs (auto) 1.22, Nucleated RBC % 0, PT 38.4 H, INR 3.8, Sodium 134, Potassium 4.1, Chloride 102, Carbon Dioxide 23.3, Anion Gap 9, BUN 24 H, Creatinine 1.39 H, Estim Creat Clear Calc 52.94, Est GFR (MDRD) Non-Af 53 L, BUN/Creatinine Ratio 17.2, Glucose 109 H, Calcium 8.4 Micro: Microbiology 05/31/25 16:07 Blood Culture (Wb) - Left Hand Blood Culture - Preliminary Radiography Diagnostic Testing: Radiology Impression Venous Doppler Study 05/31/25 15:27 Interpretation Summary Chronic venous changes are noted in the left popliteal vein, which is partially compressible and demonstrates bright intraluminal echogenicity. The remainder of the left lower extremity deep venous system is patent and compressible. There is no evidence of left lower extremity acute deep vein thrombosis. Valvular competence appears intact within the proximal deep venous system on the left . The left great saphenous vein appears patent and compressible segmentally. The right common femoral vein is patent and compressible . A lymph node is noted in the left groin measuring 0.87 cm x 2.31 cm. Ordering Physician: Michelet Clements Referring Physician: Wade Padilla Performed By: Vanna Quintana, SABRINA, RVT Tibia/Fibula X-Ray 05/31/25 16:20 IMPRESSION: Osseous findings as above. Reading Location: [facility] Ankle X-Ray 05/31/25 17:40 IMPRESSION: No acute fracture or dislocations. No significant degenerative changes. No large joint effusion. Mild diffuse soft tissue edema. No radiographic foreign body. Reading Location: [facility] Physical Exam Const alert and no apparent distress HEENT head/scalp atraumatic and moist oral mucous membranes Resp normal respiratory effort, no retractions, no use of accessory muscles and clear to auscultation bilaterally Cardio regular rate, regular rhythm, S1 normal heart sound and S2 normal heart sound GI normal to inspection, nondistended, normoactive bowel sounds, soft to palpation, non-tender and non-distended Extremity Extremity Narrative: left leg edematous TTP distal anterior somers. no induration. Neuro Sensorium / Orientation: awake and alert Assessment & Plan Assessment/Plan (1) Left leg cellulitis: PLAN: Plan Recurrent left lower extremity cellulitis * No draining lesions, somewhat generally tender * Tib-fib x-ray questioned a lucency in distal fibula and recommended dedicated imaging. Ankle xray showed no foreign body/fracture. * Abx w pip/tazo and vancomycin * Elevate lower extremity Hypoxia in setting of history of COPD * pulse ox down to 63%. 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 Hold warfarin for now. * GERD-Continue PPI * LIZA-Continue home NIPPV if applicable * Tobacco use-Advise cessation-Nicotine replacement available if desired * Hypertension- Patient with soft BP in the ED, hold hydrochlorothiazide DVT ppx: Therapeutic on Coumadin Charges/Coding Visit Charges Inpatient E&M: 44561 Subs Hosp L2
--- NOTE | 2025-06-01 07:51 | RAD_ITS ---
PROCEDURE: CHEST 1 VIEW (PORTABLE) 06/01/2025 REASON FOR EXAM: HYPOXIA TECHNIQUE: Frontal view of the chest. COMPARISON: Prior study dated September 15, 2024. FINDINGS: Hardware: None Heart: The heart size is normal. Lungs: Hyperinflation. Stable mild increased markings in the lingular segment of the left upper lobe suggestive of scarring. No acute infiltrate is seen. Bones: Degenerative changes are identified within the thoracic spine. Other: RAD/Chest 1 View (Portable) IMPRESSION: Hyperinflation. Stable mild increased markings in the lingular segment of the left upper lobe s uggestive of scarring. Reading Location: [place] [id number]
--- NOTE | 2025-06-01 11:30 | CASEMGMT ---
TOREY VICKERS Assessment: Face to Face with pt for initial transition planning/care coordination assessment. TOREY VICKERS introduced self and role at [facility], pt voices understanding and consents to assessment. Pt is A&O x4 and answers all questions appropriately at this time. Pt sitting up in bed in no distress on RA. Care providers, pharmacy, and demographics verified/updated. Admitting Dx: LLE cellulitis Strata Score: 3 PCP:Randy Specialists:Meagan, cardio; Cruz Oconnor, pulm; Paloma, cardiac OR; Friend, GI Preferred Pharmacy: [facility] Prescription Benefit: yes LNOK: Taylor Lindquist, ; Ramy Hartley, son in law Living Arrangements: Pt lives with in a two story home with a ramp to enter in the front. Pt reports he is I in ADL and IADLs at home. Pt works so pt does the laundry, dishes and meals. Pt denies concerns at home. Transportation: Pt drives self and denies concerns with transportation. DME:crutches, canes, walker, nebulizer, CPAP HHC/SNF: Denies hx of. Pt states his insurance has a nurse that comes for an assessment every now and then. Pt states no concerns with going home at time of dc. Noted 6 clicks =17. Pt states normally he does not ambulate with a device but due to the swelling and pain with his cellulitis, it is affecting his gait. Pt states his strength is good. 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 Pt states no further concerns/needs. CM to follow. Advised pt to ask CM if any further questions/concerns/needs arise, voices understanding. Pt Goal: Home Plan: Home Chapis LEMA CM
--- NOTE | 2025-06-01 16:30 | CHAPLAIN ---
Type of Pastoral Visit ___ Initial Visit ___ Follow-up Visit ___ On-call Visit ___ General Patient Visit ___ Spiritual Assessment ___ Family Conference ___ Bereavement ___ Rapid Response ___ Code Blue ___ Other (describe below) Pastoral Care Referral From ___ Patient ___ Family ___ Nurse ___ Physician ___ Abattoir Supervisor ___ Fleet Operations Manager ___ Other (describe below) Sacrament/Intervention ___ Active listening ___ Anointing ___ Hindu ___ Bereavement ___ Communion ___ Lawanda exploration ___ ___ Life review ___ Prayer ___ Reconciliation ___ Sacrament of Sick ___ Supportive presence ___ Wedding ___ Other (describe below) Pastoral Comments patient was sound asleep; daughter was in the room and acknowledged offer of support but desire to allow pt to remain sleeping; offered to come back at another time
[2025-06-01] MEDS: Senna/Docusate Sodium 1 Tablet 2 TABLET PO (20:47)
[2025-06-01] MEDS: 0.9% Normal Saline (250mL Bag) 250 ML 15 ML IV (21:13)
[2025-06-02] VITALS (8 sets, daily range): BP systolic 115–149; BP diastolic 61–76; PULSE 59–88; RESP 15–22; TEMP 36.3–36.8; O2SAT 94–96
[2025-06-02] MEDS: HYDROmorphone 0.5 MG/0.5 ML SYRINGE IV ×2 (02:31→09:02)
[2025-06-02 02:34] LABS: Mucous, Urine 0 SEEN /hpf (<or=2+); Squamous Epithelial Cells - UA 0 SEEN /hpf (0-5)
[2025-06-02 02:36] LABS: Color, Urine Yellow (Yellow); Glucose, Dipstick Normal (Normal); Ketone-Dipstick Negative (Negative); Leukocyte Esterase-Dipstick Negative /ul (Negative); Nitrite-Dipstick Negative (Negative); Occult Blood-Urine 50 /ul (Negative); Protein-Dipstick 15 mg/dl (Negative); Specific Gravity, Urine 1.015 (1.002-1.030); Urine Bilirubin Dipstick Negative (Negative)
[2025-06-02 03:51] LABS: Hematocrit 40.5 % (40-54); Hemoglobin 13.6 g/dL (13.0-16.5); Immature Granulocytes Count 0.030 X10^3/uL (0.0-0.0); Mean Corp Hgb Conc 33.6 g/dL (32-36); Mean Corpuscular Volume 102.5 fL (80-94); Mean Platelet Vol. 9.4 fl (6.2-12.0); NRBC Flagged by Analyzer 0 % (0-5); Platelet Count 110 K/mm3 (150-450); RBC Distribution Width CV 14.9 % (11.6-14.6); RBC Distribution Width SD 56.1 fl (35.1-43.9); Red Blood Count 3.95 M/mm3 (4.6-6.2); White Blood Count 11.2 K/mm3 (4.4-11.0)
[2025-06-02 04:06] LABS: Prothrombin Time (Protime)PT. 46.4 SECONDS (11.7-14.9)
[2025-06-02 04:09] LABS: Red Blood Cells-Urine 0-5 SEEN /hpf (0-5)
[2025-06-02 04:13] LABS: Anion Gap 11 (5-15); BUN 23 mg/dL (4-19); BUN/Creat Ratio 18.8 RATIO (10-20); Calcium,Total 8.5 mg/dL (7.6-11.0); Carbon Dioxide 22.1 mmol/L (21.0-32.0); Chloride 102 mmol/L (98-108); Estimated Creatinine Clearance 59.34 ml/min (50-250); Glucose 113 mg/dL (70-99); Potassium 3.9 mmol/L (3.3-5.1)
[2025-06-02 04:19] LABS: Vancomycin, Trough Level 16.0 ug/mL (5.0-15.0)
[2025-06-02] MEDS: Vancomycin Trough/Random Due 1 LAB MC (04:47)
[2025-06-02] MEDS: Vancomycin HCl 1,250 MG in 0.9% Normal Saline (250mL Bag) 250 ML 167 MG IV ×2 (04:47→19:00)
--- NOTE | 2025-06-02 05:32 | PCM.RX.CS ---
Consult Antibiotic Management Pharmacy has been consulted to manage selected antibiotic: Vancomycin Type of Intervention Type of Consult: Follow-up Labs Labs: Sodium 134 mmol/L (133-145) 06/02/25 03:40 Potassium 3.9 mmol/L (3.3-5.1) 06/02/25 03:40 Chloride 102 mmol/L (98-108) 06/02/25 03:40 Carbon Dioxide 22.1 mmol/L (21.0-32.0) 06/02/25 03:40 Anion Gap 11 (5-15) 06/02/25 03:40 BUN 23 mg/dL (4-19) H 06/02/25 03:40 Creatinine 1.24 mg/dL (0.70-1.20) H 06/02/25 03:40 Est GFR (MDRD) Non-Af 61 (>60) 06/02/25 03:40 BUN/Creatinine Ratio 18.8 RATIO (10-20) 06/02/25 03:40 Glucose 113 mg/dL (70-99) H 06/02/25 03:40 Vancomycin Trough 16.0 ug/mL (5.0-15.0) H 06/02/25 03:40 Microbiology Microbiology: Microbiology 05/31/25 16:07 Blood Culture (Wb) - Left Hand Blood Culture - Preliminary Goal Trough Goal Trough: 15-20 mcg/mL Pharmacy Plan for Drug Dosing Pharmacy Plan for Drug Dosing: Pharmacy Service will continue to monitor and adjust dosing as required. TROUGH 16.0 @ 10.5 HOURS. NO CHANGES, FOLLOW UP TROUGH IN 2 DAYS Follow-Up Labs Follow-Up Labs: Trough: Vancomycin Date/Time Labs Ordered Labs to be done on [date and time ordered]: 06/04 @ 9640
[2025-06-02] MEDS: Piperacil/Tazobactam 3.375 GM in 0.9% Normal Saline (50mL MB+) 50 ML IV ×3 (06:30→23:24)
--- NOTE | 2025-06-02 07:33 | PN.HOSP_ITS ---
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 Difficulty urinating and had a PVR of >500cc. Objective Data Objective Data Vital Signs: Vital Signs Temp Pulse Resp BP Pulse Ox O2 Del Method O2 Flow Rate 36.6 C 60 18 136/73 H 95 Nasal Cannula 2 06/02/25 02:00 06/02/25 02:00 06/02/25 02:00 06/02/25 02:00 06/02/25 02:00 06/02/25 02:00 06/02/25 02:00 FiO2 21 06/02/25 05:42 Oxygen Flow Rate (L/min) 2 Oxygen Delivery Method Nasal Cannula Weight: 91.172 kg Body Mass Index (BMI) 28.8 Intake & Output: Intake and Output for Last 24 Hours 05/31/25 06/01/25 06/02/25 23:59 23:59 23:59 Intake Total 1030 / 1030 1700 / 1700 325 / 325 Output Total 1200 / 1200 750 / 750 Balance 1030 / 780 500 / 500 -425 / -425 Lab / Micro Data 06/02/25 03:40 06/02/25 03:40 Labs: Laboratory Results - last 24 hr 06/02/25 02:25: Urine Color Yellow, Urine Clarity Clear, Urine pH 6.0, Ur Specific [place] 1.015, Urine Protein 15 H, Urine Glucose (UA) Normal, Urine Ketones Negative, Urine Occult Blood 50 H, Urine Nitrite Negative, Urine Bilirubin Negative, Urine Urobilinogen Normal, Ur Leukocyte Esterase Negative, Urine RBC 0-5 SEEN, Urine WBC 0 SEEN, Ur Squamous Epith Cells 0 SEEN, Urine Bacteria 0 SEEN, Urine Mucus 0 SEEN 06/02/25 03:40: WBC 11.2 H, RBC 3.95 L, Hgb 13.6, Hct 40.5, MCV 102.5 H, MCH 34.4 H, MCHC 33.6, RDW Std Deviation 56.1 H, RDW Coeff of Marcelle 14.9 H, Plt Count 110 L, MPV 9.4, Immature Gran % (Auto) 0.300, Neut % (Auto) 82.0 H, Lymph % (Auto) 9.4 L, [place] % (Auto) 7.5, Eos % (Auto) 0.6, Baso % (Auto) 0.2, Absolute Neuts (auto) 9.2 H, Absolute Lymphs (auto) 1.06, Nucleated RBC % 0, PT 46.4 H, I NR 4.8 H*, Sodium 134, Potassium 3.9, Chloride 102, Carbon Dioxide 22.1, Anion Gap 11, BUN 23 H, Creatinine 1.24 H, Estim Creat Clear Calc 59.34, Est GFR (MDRD) Non-Af 61, BUN/Creatinine Ratio 18.8, Glucose 113 H, Calcium 8.5, V ancomycin Trough 16.0 H Micro: Microbiology 05/31/25 16:07 Blood Culture (Wb) - Left Hand Blood Culture - Preliminary Gram negative meño Radiography Diagnostic Testing: Radiology Impression Chest X-Ray 06/01/25 07:51 IMPRESSION: Hyperinflation. Stable mild increased markings in the lingular segment of the left upper lobe suggestive of scarring. Reading Location: [place] [address] Physical Exam Const alert and no apparent distress HEENT head/scalp atraumatic and moist oral mucous membranes Resp normal respiratory effort, no retractions, no use of accessory muscles and clear to auscultation bilaterally Cardio regular rate, regular rhythm, S1 normal heart sound and S2 normal heart sound GI normal to inspection, nondistended, normoactive bowel sounds, soft to palpation, non-tender and non-distended Neuro Sensorium / Orientation: awake and alert Assessment & Plan Assessment/Plan (1) Left leg cellulitis: PLAN: Plan Recurrent left lower extremity cellulitis * No draining lesions, somewhat generally tender * Tib-fib x-ray questioned a lucency in distal fibula and recommended dedicated imaging. Ankle xray showed no foreign body/fracture. * Abx w pip/tazo and vancomycin * Elevate lower extremity * CT showed left calf cellulitis into the ankle and foot. No abscess nor osteomyelitis. Bacteremia * GNR Urinary retention * guillen catheters attempted last night, but were unsuccessful. Placed today. Will continue upon discharge and have him follow up with as outpt. * Pt is s/p prostate surgery. Will start tamsulosin. Explained that low likelihood of angioedema. He agreed to proceed. * UA negative for UTI. Hypoxia * resolved. * pulse ox down to 63%. wean oxygen as tolerated * pt placed on O2 after receiving pain medications * Is diffusely wheezing * Scheduled nebs and inhaled budesonide * Incentive spirometer * CXR negative. 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 Continue to hold warfarin for now. * GERD-Continue PPI * LIZA-Continue home NIPPV if applicable * Tobacco use-Advise cessation-Nicotine replacement available if desired * Hypertension- hydrochlorothiazide held DVT ppx: INR Therapeutic on Coumadin Charges/Coding Visit Charges Inpatient E&M: 75960 Subs Hosp L2
[2025-06-02] MEDS: 0.9% Saline Lock 10 ML Syringe IV ×4 (09:01→23:23)
--- NOTE | 2025-06-02 10:00 | CT_ITS ---
PROCEDURE: EXTREMITY LOWER WITHOUT CONTRA 06/02/2025 REASON FOR EXAM: LEFT LEG CELLULITIS TECHNIQUE: Procedure Code: CTELWO Modality: CT Procedure: EXTREMITY LOWER WITHOUT CONTRA Coronal and Sagittal reconstruction series were provided. CONTRAST: None One or more dose reduction techniques were used (e.g., Automated exposure control, adjustment of the mA and/or kV according to patient size, use of iterative reconstruction technique). RADIATION DOSE SUMMARY: CTDlvol: 15.4 mGy DLP: 971.6 mGycm COMPARISON: None FINDINGS: Bones: Knee articulation negative. Tibia and fibula negative. No evidence of erosive changes. No fractures. Tarsals metatarsals and phalanges negative. Joints: Normal for age. Soft Tissues: Diffuse subcutaneous edema throughout the calf most prominent in the lateral distal calf extends into the ankle. At the ankle extends throughout the foot with diffuse subcutaneous edema. No focal fluid collections or definitive abscess. Again no evidence of ulcerations or osteomyelitis. CT/Extremity Lower without Contra IMPRESSION: Left calf cellulitis extends into the ankle and foot. No definitive abscess or osteomyelitis. Reading Location: [place] [address]
[2025-06-02] MEDS: Lidocaine Jelly 2% 20 ML Syringe (URO-JET) 1 APPLIC TOPICAL (10:32)
[2025-06-02] MEDS: 0.9% Normal Saline (250mL Bag) 250 ML 15 ML IV (21:57)
[2025-06-03] VITALS (9 sets, daily range): BP systolic 126–142; BP diastolic 61–77; PULSE 62–92; RESP 16–22; TEMP 36.6–36.9; O2SAT 92–98
[2025-06-03] MEDS: HYDROmorphone 0.5 MG/0.5 ML SYRINGE IV (03:50)
[2025-06-03] MEDS: Vancomycin HCl 1,250 MG in 0.9% Normal Saline (250mL Bag) 250 ML 167 MG IV (04:08)
[2025-06-03] MEDS: Piperacil/Tazobactam 3.375 GM in 0.9% Normal Saline (50mL MB+) 50 ML IV (06:14)
[2025-06-03 07:12] LABS: Hematocrit 40.1 % (40-54); Hemoglobin 13.2 g/dL (13.0-16.5); Immature Granulocytes Count 0.030 X10^3/uL (0.0-0.0); Mean Corp Hgb Conc 32.9 g/dL (32-36); Mean Corpuscular Volume 101.8 fL (80-94); Mean Platelet Vol. 9.5 fl (6.2-12.0); NRBC Flagged by Analyzer 0 % (0-5); Platelet Count 118 K/mm3 (150-450); RBC Distribution Width CV 15.1 % (11.6-14.6); RBC Distribution Width SD 57.1 fl (35.1-43.9); Red Blood Count 3.94 M/mm3 (4.6-6.2); White Blood Count 8.6 K/mm3 (4.4-11.0)
[2025-06-03 07:20] LABS: Prothrombin Time (Protime)PT. 34.2 SECONDS (11.7-14.9)
[2025-06-03 08:03] LABS: Anion Gap 10 (5-15); BUN 14 mg/dL (4-19); BUN/Creat Ratio 13.2 RATIO (10-20); Calcium,Total 8.5 mg/dL (7.6-11.0); Carbon Dioxide 20.9 mmol/L (21.0-32.0); Chloride 107 mmol/L (98-108); Estimated Creatinine Clearance 68.13 ml/min (50-250); Glucose 94 mg/dL (70-99); Potassium 4.3 mmol/L (3.3-5.1)
[2025-06-03] MEDS: Senna/Docusate Sodium 1 Tablet 2 TABLET PO ×2 (08:14→21:40)
--- NOTE | 2025-06-03 08:21 | PN.HOSP_ITS ---
Reason for Visit Chief Complaint: Left lower extremity pain and erythema Subjective Subjective Still with swelling of his left lower extremity. Has difficulty putting weight on that leg but overall is doing better. Objective Data Objective Data Vital Signs: Vital Signs Temp Pulse Resp BP Pulse Ox O2 Del Method O2 Flow Rate 36.7 C 76 18 142/74 H 97 Room Air 2 06/03/25 04:08 06/03/25 07:04 06/03/25 07:04 06/03/25 04:08 06/03/25 07:04 06/03/25 07:04 06/02/25 02:00 FiO2 21 06/03/25 00:15 Oxygen Flow Rate (L/min) 2 Oxygen Delivery Method Room Air Weight: 91.172 kg Body Mass Index (BMI) 28.8 Intake & Output: Intake and Output for Last 24 Hours 06/01/25 06/02/25 06/03/25 23:59 23:59 23:59 Intake Total 1700 / 1700 945 / 945 325 / 325 Output Total 1200 / 1200 2775 / 2775 450 / 450 Balance 500 / 500 -1830 / -1830 -125 / -125 Lab / Micro Data 06/03/25 06:40 06/03/25 06:40 Labs: Laboratory Results - last 24 hr 06/03/25 06:40: WBC 8.6, RBC 3.94 L, Hgb 13.2, Hct 40.1, MCV 101.8 H, MCH 33.5 H , MCHC 32.9, RDW Std Deviation 57.1 H, RDW Coeff of Marcelle 15.1 H, Plt Count 118 L, MPV 9.5, Immature Gran % (Auto) 0.300, Neut % (Auto) 78.7 H, Lymph % (Auto) 12.9 L, [place] % (Auto) 7.0, Eos % (Auto) 0.9, Baso % (Auto) 0.2, Absolute Neuts (auto) 6.8, Absolute Lymphs (auto) 1.11, Nucleated RBC % 0, PT 34.2 H, INR 3.3, Sodium 138, Potassium 4.3, Chloride 107, Carbon Dioxide 20.9 L, Anion Gap 10, BUN 14, Creatinine 1.08, Estim Creat Clear Calc 68.13, Est GFR (MDRD) Non-Af 72, BUN/Creatinine Ratio 13.2, Glucose 94, Calcium 8.5 Micro: Microbiology 05/31/25 16:07 Blood Culture (Wb) - Left Hand Blood Culture - Preliminary Aeromonas sobria Radiography Diagnostic Testing: Radiology Impression Lower Extremity CT 06/02/25 10:00 IMPRESSION: Left calf cellulitis extends into the ankle and foot. No definitive abscess or osteomyelitis. Reading Location: [place] [address] Physical Exam Const alert and no apparent distress Resp normal respiratory effort and no retractions Extremity Extremity Narrative: Swelling redness reduced from previous. Less warmth. Neuro Sensorium / Orientation: awake and alert Assessment & Plan Assessment/Plan (1) Left leg cellulitis: PLAN: Plan Recurrent left lower extremity cellulitis * No draining lesions, somewhat generally tender * Tib-fib x-ray questioned a lucency in distal fibula and recommended dedicated imaging. Ankle xray showed no foreign body/fracture. * Abx w pip/tazo and vancomycin * Elevate lower extremity * CT showed left calf cellulitis into the ankle and foot. No abscess nor osteomyelitis. Bacteremia * Aeromonas sobria sensitive to CTX and pip/tazo * DC pip/tazo and start CTX. * suspect the cause of his cellulitis given that he was wading in brackish water. * ID input appreciated. Plan for Cipro for discharge. Urinary retention * guillen catheters attempted last night, but were unsuccessful. Placed today. Will continue upon discharge and have him follow up with as outpt. * Pt is s/p prostate surgery. Will start tamsulosin. Explained that low likelihood of angioedema. He agreed to proceed. * UA negative for UTI. Hypoxia * resolved. * pulse ox down to 63%. wean oxygen as tolerated * pt placed on O2 after receiving pain medications * Is diffusely wheezing * Scheduled nebs and inhaled budesonide * Incentive spirometer * CXR negative. 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 Continue to hold warfarin for now. * GERD-Continue PPI * LIZA-Continue home NIPPV if applicable * Tobacco use-Advise cessation-Nicotine replacement available if desired * Hypertension- hydrochlorothiazide held DVT ppx: INR Therapeutic on Coumadin Discussed with Rosales member at bedside. Charges/Coding Visit Charges Inpatient E&M: 28915 Subs Hosp L2
[2025-06-03] MEDS: guaiFENesin 10 ML UDC (200MG/10ML) PO ×2 (09:02→13:52)
[2025-06-03] MEDS: Ceftriaxone 2 GM in 0.9% Normal Saline (50mL MB+) 50 ML IV (09:42)
[2025-06-03] MEDS: 0.9% Normal Saline (250mL Bag) 250 ML 15 ML IV (09:42)
[2025-06-03] MEDS: 0.9% Saline Lock 10 ML Syringe IV (09:45)
--- NOTE | 2025-06-03 10:27 | PCM.CONS.GEN ---
Assessment & Plan Assessment/Plan (1) Left leg cellulitis: (2) Sepsis: PLAN: Sepsis due to aeromonas bacteremia from LLE cellulitis - had freshwater pond exposure. Will stop vanc, cover with ceftriaxone. Plan for home will be 7 days po cipro 500mg bid. Last QTC was less than 450. Bactrim would be another reliable oral option depending on kidney function. Will follow, thank you, d/w Dr. Montoya. (3) Bacteremia due to Gram-negative bacteria: HPI Consult Data Date of Consult: 06/03/25 HPI Narrative Reason for Consultation: bacteremia HPI Narrative: ANKUL BASSETT, is a 74 M with h/o COPD, TAVR, presented to ED 05/31 with acute onset that day of lower R leg pain, redness, swelling. Pain worse with weight bearing. No drainage. Had associated shaking chills. Has had recurrent cellulitis in the past. Now admitted here on vanc/zosyn, feeling better, redness improved, chills resolved. 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 Full ROS performed and neg except as noted above. [facility] Medical History Smoker CPAP (continuous positive airway pressure) dependence Sleep apnea DVT (deep venous thrombosis) Shoulder pain Left leg cellulitis Asthmatic bronchitis with exacerbation Allergic reaction Dark stools Generalized anxiety disorder GI bleed Cough Shortness of breath Acute sinusitis, unspecified Arterial insufficiency Orthostasis Hypotensive episode Recurrent epistaxis Lymphadenopathy Nonrheumatic aortic (valve) stenosis with insufficiency Essential hypertension Health care maintenance Colon cancer screening Oral thrush Upper respiratory tract infection COVID-19 (07/2021) Nail avulsion, toe Sinusitis Urinary frequency Dysuria Post-phlebitic syndrome 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 Skin lesion Intermittent claudication Hernia Carotid artery stenosis BPH (benign prostatic hyperplasia) Hemorrhoids Obesity Peripheral neuropathy Hyperlipidemia LIZA (obstructive sleep apnea) Bronchitis Chronic sinusitis Hypersomnia Home Medications ?Medication ?Instructions ?Recorded ?Last Taken ?Type calcium carbonate (Calcium 600) 600 mg PO DAILY SUPPLEMENT 08/24/19 12/23/23 History zinc sulfate 50 mg zinc (220 mg) 50 mg PO DAILY PRN SUPPLEMENT 09/25/23 Unknown History capsule albuterol sulfate 90 mcg/actuation 1 inh inhalation Q6H PRN shortness 09/28/23 10/25/23 Rx aerosol inhaler of breath or wheezing #8.5 grams essential oil 1 drp .Route PRN PRN calming 10/21/23 Unknown History ipratropium 0.5 mg-albuterol 3 mg 3 ml inhalation Q6H PRN shortness 11/22/23 Unknown Rx (2.5 mg base)/3 mL nebulization of breath or wheezing #90 mL soln Handicap Placard #1 ea 12/09/23 Unknown Rx warfarin 6 mg tablet 6 mg PO MO blood thinner 04/28/24 Unknown History pantoprazole 40 mg tablet,delayed 40 mg PO DAILY PRN indigestion 07/27/24 Unknown History release ascorbic acid (vitamin C) 1,000 mg 1 g PO DAILY vitamin 09/15/24 Unknown History tablet (Vitamin C) cholecalciferol (vitamin D3) 25 1,000 unit PO DAILY vitamin 09/15/24 Unknown History mcg (1,000 unit) tablet (Vitamin D3) rosuvastatin 20 mg tablet 20 mg PO DAILY CHOLESTEROL #90 12/28/24 Unknown Rx tabs hydrochlorothiazide 25 mg tablet 25 mg PO DAILY diuretic #60 tabs 04/09/25 Unknown Rx comp.stocking,thigh,long,large #2 ea 05/19/25 Unknown Rx gabapentin 300 mg capsule 300 mg PO QDAY NERVE PAIN 05/19/25 Unknown History warfarin 4 mg tablet 4 mg PO DAILY previous blood clots 05/19/25 Unknown History Allergy/AdvReac Type Severity Reaction Status Date / Time pseudoephedrine (From Allergy Severe Rash Verified 05/31/25 13:15 Sudafed) Iodinated Contrast Media AdvReac Severe Other Verified 05/31/25 13:15 (Iodinated Contrast Media - IV Dye) oxycodone AdvReac Other Verified 05/31/25 13:15 Family History Father Lung cancer Uncle Cancer Grandfather Myocardial infarction Grandmother Myocardial infarction Mother Myocardial infarction, Onset Age: 90 Surgical History S/P TAVR (transcatheter aortic valve replacement) (02/17/24) History of transurethral resection of prostate (~01/2020) History of wisdom tooth extraction History of arthroscopy of left knee Status post hammer toe correction History of nasal polypectomy History of umbilical hernia repair History of back surgery Social History Smoking Status: Current every day smoker tobacco type: cigarettes Tobacco: How many years used: 50 second hand exposure: Yes quit status: considering quitting alcohol intake: current alcohol intake frequency: holidays/special occasions only substance use type: does not use caffeine: Yes Type: coffee Number of servings: 2 and tea Number of servings: 1 what type of physical activity do you participate in: none Physical Exam Const alert, oriented x3 and no apparent distress General Appearance: cooperative Eyes PERRL and EOMs intact bilaterally Neck supple and No nodes Resp Auscultation: wheezes Cardio regular rate and regular rhythm GI soft to palpation, non-tender and non-distended Extremity General Extremity: edema Skin Skin Narrative: L lower leg redness, warmth, mild tenderness Neuro CN's II-XII intact bilaterally Lab / Micro Data Attestation: I reviewed the patient's lab results. 06/03/25 06:40 06/03/25 06:40 Labs: Laboratory Results - last 24 hr 06/03/25 06:40: WBC 8.6, RBC 3.94 L, Hgb 13.2, Hct 40.1, MCV 101.8 H, MCH 33.5 H, MCHC 32.9, RDW Std Deviation 57.1 H, RDW Coeff of Marcelle 15.1 H, Plt Count 118 L, MPV 9.5, Immature Gran % (Auto) 0.300, Neut % (Auto) 78.7 H, Lymph % (Auto) 12.9 L, [place] % (Auto) 7.0, Eos % (Auto) 0.9, Baso % (Auto) 0.2, Absolute Neuts (auto) 6.8, Absolute Lymphs (auto) 1.11, Nucleated RBC % 0, PT 34.2 H, INR 3.3, Sodium 138, Potassium 4.3, Chloride 107, Carbon Dioxide 20.9 L, Anion Gap 10, BUN 14, Creatinine 1.08, Estim Creat Clear Calc 68.13, Est GFR (MDRD) Non-Af 72, BUN/Creatinine Ratio 13.2, Glucose 94, Calcium 8.5 Micro: Microbiology 05/31/25 16:07 Blood Culture (Wb) - Left Hand Blood Culture - Preliminary Aeromonas sobria Imaging Radiology Impression Lower Extremity CT 06/02/25 10:00 IMPRESSION: Left calf cellulitis extends into the ankle and foot. No definitive abscess or osteomyelitis. Reading Location: [place] [id number]
--- NOTE | 2025-06-03 14:07 | CHAPLAIN ---
Type of Pastoral Visit _x__ Initial Visit ___ Follow-up Visit ___ On-call Visit ___ General Patient Visit ___ Spiritual Assessment ___ Family Conference ___ Bereavement ___ Rapid Response ___ Code Blue ___ Other (describe below) Pastoral Care Referral From _x__ Patient ___ Family ___ Nurse ___ Physician ___ Director Of Employee Development ___ Records Manager ___ Other (describe below) Sacrament/Intervention __x_ Active listening ___ Anointing ___ Druze ___ Bereavement ___ Communion ___ Lawanda exploration ___ _x__ Life review _x__ Prayer ___ Reconciliation ___ Sacrament of Sick _x__ Supportive presence ___ Wedding ___ Other (describe below) Pastoral Comments 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
--- NOTE | 2025-06-03 14:45 | NURSING ---
Per Dr. Montoya, okay to have [place] cough drops at bedside.
--- NOTE | 2025-06-03 15:14 | CASEMGMT ---
Noted no therapy recommended from PT eval. Noted pt ambulating halls with walker and aide.
[2025-06-04] VITALS (8 sets, daily range): BP systolic 129–160; BP diastolic 66–75; PULSE 60–77; RESP 16–18; TEMP 36.2–36.6; O2SAT 94–99
[2025-06-04] MEDS: guaiFENesin 10 ML UDC (200MG/10ML) PO ×2 (05:35→23:21)
[2025-06-04 06:23] LABS: Prothrombin Time (Protime)PT. 29.4 SECONDS (11.7-14.9)
[2025-06-04] MEDS: Senna/Docusate Sodium 1 Tablet 2 TABLET PO (08:08)
--- NOTE | 2025-06-04 08:51 | PN.HOSP_ITS ---
Reason for Visit Chief Complaint: Left lower extremity pain and erythema Subjective Subjective His leg is improved. Improved pain. Able to walk w aide. Objective Data Objective Data Vital Signs: Vital Signs Temp Pulse Resp BP Pulse Ox O2 Del Method O2 Flow Rate 36.5 C L 71 18 160/74 H 95 Room Air 2 06/04/25 08:00 06/04/25 08:00 06/04/25 08:00 06/04/25 08:00 06/04/25 08:00 06/04/25 08:00 06/02/25 02:00 FiO2 21 06/03/25 23:31 Oxygen Flow Rate (L/min) 2 Oxygen Delivery Method Room Air Weight: 91.172 kg Body Mass Index (BMI) 28.8 Intake & Output: Intake and Output for Last 24 Hours 06/02/25 06/03/25 06/04/25 23:59 23:59 23:59 Intake Total 945 / 945 999.79 / 999.79 250 / 250 Output Total 2775 / 2775 1950 / 1950 750 / 750 Balance -1830 / -1830 -950.21 / -950.21 -500 / -500 Lab / Micro Data 06/03/25 06:40 06/03/25 06:40 Labs: Laboratory Results - last 24 hr 06/04/25 05:40: PT 29.4 H, INR 2.7 Micro: Microbiology 05/31/25 16:07 Blood Culture (Wb) - Left Hand Blood Culture - Final Aeromonas sobria 06/03/25 10:53 Mucosa - Nasopharyngeal Respiratory Panel (PCR) - Final 06/03/25 10:53 Mucosa - Nasopharyngeal Coronavirus COVID-19 PCR - Final Physical Exam Const alert and no apparent distress HEENT head/scalp atraumatic and moist oral mucous membranes Resp normal respiratory effort, no retractions and no use of accessory muscles Extremity Extremity Narrative: decreased edema of lle. no warmth of lle. no fluctuance. Assessment & Plan Assessment/Plan (1) Left leg cellulitis: PLAN: Plan Recurrent left lower extremity cellulitis * No draining lesions, somewhat generally tender * Tib-fib x-ray questioned a lucency in distal fibula and recommended dedicated imaging. Ankle xray showed no foreign body/fracture. * Abx w pip/tazo and vancomycin * Elevate lower extremity * CT showed left calf cellulitis into the ankle and foot. No abscess nor osteomyelitis. * improving Bacteremia * Aeromonas sobria sensitive to CTX and pip/tazo * DC pip/tazo and start CTX. * suspect the cause of his cellulitis given that he was wading in brackish water. * ID input appreciated. Plan for Cipro for discharge. Urinary retention * guillen catheters attempted last night, but were unsuccessful. Placed today. Will continue upon discharge and have him follow up with as outpt. * Pt is s/p prostate surgery. Will start tamsulosin. Explained that low likelihood of angioedema. He agreed to proceed. * UA negative for UTI. Hypoxia * resolved. * pulse ox down to 63%. wean oxygen as tolerated * pt placed on O2 after receiving pain medications * Is diffusely wheezing * Scheduled nebs and inhaled budesonide * Incentive spirometer * CXR negative. 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 * GERD-Continue PPI * LIZA-Continue home NIPPV if applicable * Tobacco use-Advise cessation-Nicotine replacement available if desired * Hypertension- hydrochlorothiazide held DVT ppx: INR Therapeutic on Coumadin DW patient he is till having pain in LLE and uncomfortable. He is hesitant about going home today given his prior h/o cellulitis. Greater than 35 minutes spent discussing with patient about cellulitis. Charges/Coding Visit Charges Inpatient E&M: 51988 Subs Hosp L2
--- NOTE | 2025-06-04 10:07 | PCM.PN.ID ---
Physical Exam Narrative Feeling better, leg less sore/red. No fever, mild nausea. Const alert and no apparent distress General Appearance: cooperative Resp normal air movement and clear to auscultation bilaterally Cardio regular rate and regular rhythm Heart Sounds: murmur GI soft to palpation, non-tender and non-distended Extremity General Extremity: edema Skin Skin Narrative: improved LLE redness, swelling, warmth, tenderness ID ID: Route of nutrition/ use of supplements: [] Nutritional Intake: [] IV Site: [] James Catheter: [] Assessment & Plan Assessment/Plan (1) Left leg cellulitis: (2) Sepsis: PLAN: Sepsis due to aeromonas bacteremia from LLE cellulitis - had freshwater pond exposure. Will cont ceftriaxone. Plan for home will be 7 days po cipro 500mg bid. Last QTC was less than 450. Will follow (3) Bacteremia due to Gram-negative bacteria:
[2025-06-04] MEDS: Ceftriaxone 2 GM in 0.9% Normal Saline (50mL MB+) 50 ML IV (10:18)
[2025-06-04] MEDS: 0.9% Saline Lock 10 ML Syringe IV (10:18)
--- NOTE | 2025-06-04 10:41 | CASEMGMT ---
TC to scientific research manager to request quality to meet with pt per hospitalist request.
--- NOTE | 2025-06-04 11:47 | CASEMGMT ---
Addendum entered by Hanna Franco 06/04/25 14:06: TOREY VICKERS into pt room, pt aware that ID has not responded back but read a portion of the note with his home recommendation. Pt aware that this TOREY VICKERS will update hospitalist and will notify pt if he will be dc'd this date or not. Spoke with hospitalist, he is aware of the discussions with pt and interventions completed. He states pt will not be dc'd this date and will be re evaluated tomorrow for dc readiness. TOREY VICKERS into pt room, he is aware that he will not be dc'd today and will be re evaluated tomorrow. He asks if wound dr will see him tomorrow. He is aware that is ID and he does not round on the weekends. He states he would like it in writing his recommendations. Pt made aware TOREY VICKERS can provide him with medical records phone number. Pt states he wants his whole medical record. Provided pt the phone number at this time. Addendum entered by Hanna Franco 06/04/25 11:59: TOREY VICKERS spoke with PT and ACADEMIC SUPPORT DIRECTOR regarding pt ability to ambulate on own. Per PT, pt able to ambulate on own with walker safely if pt does not have the IV pole to maneuver. If pt has an IV pole, recommend staff to ambulate with pt to manage pole. TOREY VICKERS into pt room, pt dtr present. Pt is aware of the above. Pt aware that at home he will not have an IV pole and therapy feels pt is safe to ambulate on own with walker. Original Note: Met with pt with Sabrina Ceballos sales and production manager regarding pt concerns of dc. Discussion with pt regarding his concerns. Plan to reach out to ID to confirm pt is ready to dc on po atb and relay the answer back to pt. If indeed, ID feels pt is ready for dc, pt may appeal dc once the order is placed. Will reach out to therapy to confirm if pt able to ambulate with walker on own or if needs to have staff member present. TOREY VICKERS messaged ID at this time.
[2025-06-04] MEDS: Warfarin (PBKC) 4 MG Tablet PO (17:29)
[2025-06-05] VITALS (8 sets, daily range): BP systolic 128–151; BP diastolic 61–74; PULSE 59–69; RESP 15–20; TEMP 36.4–36.8; O2SAT 92–96
[2025-06-05 05:45] LABS: Hematocrit 40.1 % (40-54); Hemoglobin 13.2 g/dL (13.0-16.5); Immature Granulocytes Count 0.020 X10^3/uL (0.0-0.0); Mean Corp Hgb Conc 32.9 g/dL (32-36); Mean Corpuscular Volume 101.5 fL (80-94); Mean Platelet Vol. 9.5 fl (6.2-12.0); NRBC Flagged by Analyzer 0 % (0-5); Platelet Count 142 K/mm3 (150-450); RBC Distribution Width CV 14.6 % (11.6-14.6); RBC Distribution Width SD 55.5 fl (35.1-43.9); Red Blood Count 3.95 M/mm3 (4.6-6.2); White Blood Count 5.4 K/mm3 (4.4-11.0)
[2025-06-05 05:57] LABS: Prothrombin Time (Protime)PT. 22.4 SECONDS (11.7-14.9)
[2025-06-05 06:26] LABS: Anion Gap 11 (5-15); BUN 17 mg/dL (4-19); BUN/Creat Ratio 17.0 RATIO (10-20); Calcium,Total 9.1 mg/dL (7.6-11.0); Carbon Dioxide 21.6 mmol/L (21.0-32.0); Chloride 104 mmol/L (98-108); Estimated Creatinine Clearance 72.14 ml/min (50-250); Glucose 97 mg/dL (70-99); Potassium 4.5 mmol/L (3.3-5.1)
[2025-06-05] MEDS: Ceftriaxone 2 GM in 0.9% Normal Saline (50mL MB+) 50 ML IV (08:21)
--- NOTE | 2025-06-05 08:22 | PN.HOSP_ITS ---
Reason for Visit Chief Complaint: Left lower extremity pain and erythema Subjective Subjective Able to walk with walker. Still with pain in LLE. Objective Data Objective Data Vital Signs: Vital Signs Temp Pulse Resp BP Pulse Ox O2 Del Method O2 Flow Rate 36.4 C L 69 16 151/69 H 95 Room Air 2 06/05/25 05:16 06/05/25 06:56 06/05/25 06:56 06/05/25 05:16 06/05/25 07:11 06/05/25 07:11 06/02/25 02:00 FiO2 21 06/05/25 00:29 Oxygen Flow Rate (L/min) 2 Oxygen Delivery Method Room Air Weight: 91.172 kg Body Mass Index (BMI) 28.8 Intake & Output: Intake and Output for Last 24 Hours 06/03/25 06/04/25 06/05/25 23:59 23:59 23:59 Intake Total 999.79 / 999.79 1520 / 1520 200 / 200 Output Total 1950 / 1950 3150 / 3150 800 / 800 Balance -950.21 / -950.21 -1630 / -1630 -600 / -600 Lab / Micro Data 06/05/25 05:14 06/05/25 05:14 Labs: Laboratory Results - last 24 hr 06/05/25 05:14: WBC 5.4, RBC 3.95 L, Hgb 13.2, Hct 40.1, MCV 101.5 H, MCH 33.4 H , MCHC 32.9, RDW Std Deviation 55.5 H, RDW Coeff of Marcelle 14.6, Plt Count 142 L, MPV 9.5, Immature Gran % (Auto) 0.400, Neut % (Auto) 65.0, Lymph % (Auto) 20.5, [place] % (Auto) 10.9 H, Eos % (Auto) 2.6, Baso % (Auto) 0.6, Absolute Neuts (auto) 3.5, Absolute Lymphs (auto) 1.11, Nucleated RBC % 0, PT 22.4 H, INR 1.9, Sodium 136, Potassium 4.5, Chloride 104, Carbon Dioxide 21.6, Anion Gap 11, BUN 17, Creatinine 1.02, Estim Creat Clear Calc 72.14, Est GFR (MDRD) Non-Af 77, BUN/Creatinine Ratio 17.0, Glucose 97, Calcium 9.1 Micro: Microbiology 06/02/25 02:25 Urine, Clean Catch Urine Culture - Final Culture exhibits no growth. 05/31/25 16:07 Blood Culture (Wb) - Left Hand Blood Culture - Final Aeromonas sobria 06/03/25 10:53 Mucosa - Nasopharyngeal Respiratory Panel (PCR) - Final 06/03/25 10:53 Mucosa - Nasopharyngeal Coronavirus COVID-19 PCR - Final Physical Exam Const alert and no apparent distress Constitutional Narrative: stable gait with walker. afebrile. non-toxic. HEENT head/scalp atraumatic and moist oral mucous membranes Resp normal respiratory effort and no retractions Extremity Extremity Narrative: Edema of left lower extremity with some swelling and tender to palpation anteriorly. Assessment & Plan Assessment/Plan (1) Left leg cellulitis: PLAN: Plan Recurrent left lower extremity cellulitis * No draining lesions, somewhat generally tender * Tib-fib x-ray questioned a lucency in distal fibula and recommended dedicated imaging. Ankle xray showed no foreign body/fracture. * Abx w pip/tazo and vancomycin * Elevate lower extremity * CT showed left calf cellulitis into the ankle and foot. No abscess nor osteomyelitis. * improving overall though today seems to be slightly more swollen and tender. Will observe the patient on ongoing IV antibiotics and if it is feeling worse and I would repeat a CAT scan imaging on the . Bacteremia * Aeromonas sobria sensitive to CTX and pip/tazo * DC pip/tazo and start CTX. * suspect the cause of his cellulitis given that he was wading in brackish water. * ID input appreciated. Plan for Cipro for discharge. Urinary retention * guillen catheters attempted last night, but were unsuccessful. Placed today. Will continue upon discharge and have him follow up with as outpt. * Pt is s/p prostate surgery. Will start tamsulosin. Explained that low likelihood of angioedema. He agreed to proceed. * UA negative for UTI. Hypoxia * resolved. * pulse ox down to 63%. wean oxygen as tolerated * pt placed on O2 after receiving pain medications * Is diffusely wheezing * Scheduled nebs and inhaled budesonide * Incentive spirometer * CXR negative. 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 Will give 5mg today (up from 4) * GERD-Continue PPI * LIZA-Continue home NIPPV if applicable * Tobacco use-Advise cessation-Nicotine replacement available if desired * Hypertension- hydrochlorothiazide held DVT ppx: INR Therapeutic on Coumadin Charges/Coding Visit Charges Inpatient E&M: 11689 Subs Hosp L2
[2025-06-05] MEDS: 0.9% Normal Saline (250mL Bag) 250 ML 100 ML IV (08:26)
[2025-06-05] MEDS: 0.9% Saline Lock 10 ML Syringe IV (08:27)
[2025-06-05] MEDS: Warfarin (PBKC) 5 MG Tablet PO (17:50)
[2025-06-06] VITALS (7 sets, daily range): BP systolic 125–160; BP diastolic 65–83; PULSE 60–84; RESP 15–19; TEMP 36.6–37.1; O2SAT 93–96
[2025-06-06 04:53] LABS: Hematocrit 36.7 % (40-54); Hemoglobin 11.9 g/dL (13.0-16.5); Immature Granulocytes Count 0.010 X10^3/uL (0.0-0.0); Mean Corp Hgb Conc 32.4 g/dL (32-36); Mean Corpuscular Volume 102.8 fL (80-94); Mean Platelet Vol. 9.7 fl (6.2-12.0); NRBC Flagged by Analyzer 0 % (0-5); Platelet Count 141 K/mm3 (150-450); RBC Distribution Width CV 14.6 % (11.6-14.6); RBC Distribution Width SD 55.8 fl (35.1-43.9); Red Blood Count 3.57 M/mm3 (4.6-6.2); White Blood Count 4.6 K/mm3 (4.4-11.0)
[2025-06-06 04:56] LABS: Anion Gap 9 (5-15); BUN 19 mg/dL (4-19); BUN/Creat Ratio 17.3 RATIO (10-20); Calcium,Total 8.7 mg/dL (7.6-11.0); Carbon Dioxide 23.3 mmol/L (21.0-32.0); Chloride 104 mmol/L (98-108); Estimated Creatinine Clearance 67.50 ml/min (50-250); Glucose 106 mg/dL (70-99); Potassium 4.4 mmol/L (3.3-5.1)
[2025-06-06 06:10] LABS: Prothrombin Time (Protime)PT. 20.8 SECONDS (11.7-14.9)
--- NOTE | 2025-06-06 08:49 | PN.HOSP_ITS ---
Reason for Visit Chief Complaint: Left lower extremity pain and erythema Subjective Subjective Still with pain and swelling in his left lower extremity. Objective Data Objective Data Vital Signs: Vital Signs Temp Pulse Resp BP Pulse Ox O2 Del Method O2 Flow Rate 37.1 C 60 16 154/83 H 96 Room Air 2 06/06/25 01:59 06/06/25 06:58 06/06/25 06:58 06/06/25 06:31 06/06/25 06:31 06/06/25 06:31 06/02/25 02:00 FiO2 21 06/06/25 03:15 Oxygen Flow Rate (L/min) 2 Oxygen Delivery Method Room Air Weight: 91.172 kg Body Mass Index (BMI) 28.8 Intake & Output: Intake and Output for Last 24 Hours 06/04/25 06/05/25 06/06/25 23:59 23:59 23:59 Intake Total 1520 / 1520 500 / 500 Output Total 3150 / 3150 2800 / 3100 925 / 925 Balance -1630 / -1630 -2300 / -2600 -925 / -925 Lab / Micro Data 06/06/25 04:21 06/06/25 04:21 Labs: Laboratory Results - last 24 hr 06/06/25 04:21: WBC 4.6, RBC 3.57 L, Hgb 11.9 L, Hct 36.7 L, MCV 102.8 H, MCH 33.3 H, MCHC 32.4, RDW Std Deviation 55.8 H, RDW Coeff of Marcelle 14.6, Plt Count 141 L, MPV 9.7, Immature Gran % (Auto) 0.200, Neut % (Auto) 53.0, Lymph % (Auto) 30.5, [place] % (Auto) 12.7 H, Eos % (Auto) 3.0, Baso % (Auto) 0.6, Absolute Neuts (auto) 2.5, Absolute Lymphs (auto) 1.41, Nucleated RBC % 0, PT 20.8 H, INR 1.7, Sodium 137, Potassium 4.4, Chloride 104, Carbon Dioxide 23.3, Anion Gap 9, BUN 19, Creatinine 1.09, Estim Creat Clear Calc 67.50, Est GFR (MDRD) Non-Af 71, BUN/Creatinine Ratio 17.3, Glucose 106 H, Calcium 8.7 Micro: Microbiology 06/02/25 02:25 Urine, Clean Catch Urine Culture - Final Culture exhibits no growth. 05/31/25 16:07 Blood Culture (Wb) - Left Hand Blood Culture - Final Aeromonas sobria 06/03/25 10:53 Mucosa - Nasopharyngeal Respiratory Panel (PCR) - Final 06/03/25 10:53 Mucosa - Nasopharyngeal Coronavirus COVID-19 PCR - Final Physical Exam Const alert and no apparent distress Constitutional Narrative: Uses a walker and has been walking in the hallways but is favoring his left leg. HEENT head/scalp atraumatic and moist oral mucous membranes Resp normal respiratory effort and no retractions Extremity Extremity Narrative: Swelling of left anterior leg with tenderness to palpation on the distal somers anteriorly. No fluctuance appreciated. Neuro moves all extremities Sensorium / Orientation: awake and alert Assessment & Plan Assessment/Plan (1) Left leg cellulitis: PLAN: Plan Recurrent left lower extremity cellulitis * Elevate lower extremity * CT showed left calf cellulitis into the ankle and foot. No abscess nor osteomyelitis. * More swollen and painful today on the . Given that his antibiotics were changed to cover the Aeromonas species, Riyad the vancomycin and check a repeat CAT scan to ensure he does not have any development of any abscess since his last CAT scan. Bacteremia * Aeromonas sobria sensitive to CTX and pip/tazo * DC pip/tazo and start CTX. * suspect the cause of his cellulitis given that he was wading in brackish water. * ID input appreciated. Plan for Cipro for discharge. Urinary retention * guillen catheters attempted last night, but were unsuccessful. Placed today. Will continue upon discharge and have him follow up with as outpt. * Pt is s/p prostate surgery. Will start tamsulosin. Explained that low likelihood of angioedema. He agreed to proceed. * UA negative for UTI. Hypoxia * resolved. * pulse ox down to 63%. wean oxygen as tolerated * pt placed on O2 after receiving pain medications * Is diffusely wheezing * Scheduled nebs and inhaled budesonide * Incentive spirometer * CXR negative. 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 Down from 1.9. Will give 7.5 mg today and then resume 5 mg starting on the . * GERD-Continue PPI * LIZA-Continue home NIPPV if applicable * Tobacco use-Advise cessation-Nicotine replacement available if desired * Hypertension- hydrochlorothiazide held DVT ppx: INR Therapeutic on Coumadin Charges/Coding Visit Charges Inpatient E&M: 31465 Subs Hosp L2
[2025-06-06] MEDS: Ceftriaxone 2 GM in 0.9% Normal Saline (50mL MB+) 50 ML IV (09:57)
[2025-06-06] MEDS: 0.9% Saline Lock 10 ML Syringe IV ×2 (09:57→11:53)
[2025-06-06] MEDS: guaiFENesin 10 ML UDC (200MG/10ML) PO ×3 (10:11→18:26)
--- NOTE | 2025-06-06 10:27 | CT_ITS ---
PROCEDURE: EXTREMITY LOWER WITHOUT CONTRA 06/06/2025 REASON FOR EXAM: LLE CELLULITIS TECHNIQUE: Procedure Code: CTELWO Modality: CT Procedure: EXTREMITY LOWER WITHOUT CONTRA Coronal and Sagittal reconstruction series were provided. CONTRAST: None One or more dose reduction techniques were used (e.g., Automated exposure control, adjustment of the mA and/or kV according to patient size, use of iterative reconstruction technique). RADIATION DOSE SUMMARY: DLP: 887 mGycm COMPARISON: None FINDINGS: There is no fracture or dislocation there is no suspicious lytic or blastic lesion. Vascular calcifications and phleboliths are noted. There is circumferential subcutaneous edema with no organized or drainable collection identified. There is no visible mass or adenopathy. The distal Achilles appears intact. There is no visible radiopaque foreign body or soft tissue air. CT/Extremity Lower without Contra IMPRESSION: There is circumferential subcutaneous edema with no organized or drainable brooks ection identified. The differential includes cellulitis and venous stasis. Reading Location: [place]
[2025-06-06] MEDS: Vancomycin HCl 2,000 MG in 0.9% Normal Saline (500mL Bag) 500 ML 250 MG IV (11:52)
--- NOTE | 2025-06-06 12:31 | PCM.RX.CS ---
Consult Antibiotic Management Pharmacy has been consulted to manage selected antibiotic: Vancomycin Type of Intervention Type of Consult: New start Suspected Infection Suspected Infection: Skin/Soft tissue Prior Doses of Antibiotics Prior Doses of Antibiotics Received/Current Regimen: Vancomycin 2000 mg IV x 1 given 06/06/25 @ 1152 Labs Labs: Sodium 137 mmol/L (133-145) 06/06/25 04:21 Potassium 4.4 mmol/L (3.3-5.1) 06/06/25 04:21 Chloride 104 mmol/L (98-108) 06/06/25 04:21 Carbon Dioxide 23.3 mmol/L (21.0-32.0) 06/06/25 04:21 Anion Gap 9 (5-15) 06/06/25 04:21 BUN 19 mg/dL (4-19) 06/06/25 04:21 Creatinine 1.09 mg/dL (0.70-1.20) 06/06/25 04:21 Est GFR (MDRD) Non-Af 71 (>60) 06/06/25 04:21 BUN/Creatinine Ratio 17.3 RATIO (10-20) 06/06/25 04:21 Glucose 106 mg/dL (70-99) H 06/06/25 04:21 Vancomycin Trough 16.0 ug/mL (5.0-15.0) H 06/02/25 03:40 Microbiology Microbiology: Microbiology 06/02/25 02:25 Urine, Clean Catch Urine Culture - Final Culture exhibits no growth. 05/31/25 16:07 Blood Culture (Wb) - Left Hand Blood Culture - Final Aeromonas sobria 06/03/25 10:53 Mucosa - Nasopharyngeal Respiratory Panel (PCR) - Final 06/03/25 10:53 Mucosa - Nasopharyngeal Coronavirus COVID-19 PCR - Final Dosing Weight Weight used for dosin kg Estimated Creatinine Clearance Estimated Creatinine Clearance: ~ 68 Goal Trough Goal Trough: 15-20 mcg/mL Pharmacy Plan for Drug Dosing Pharmacy Plan for Drug Dosing: Vancomycin 2000 mg IV x 1 followed by 1000 mg Q12H Pharmacy Service will continue to monitor and adjust dosing as required. Follow-Up Labs Follow-Up Labs: Trough: Vancomycin Date/Time Labs Ordered Labs to be done on [date and time ordered]: 06/07/25 @ 6081
[2025-06-06] MEDS: WARFARIN 7.5 MG PO (18:23)
[2025-06-06] MEDS: Vancomycin HCl 1,000 MG in 0.9% Normal Saline (250mL Bag) 250 ML 250 MG IV (23:30)
[2025-06-07] VITALS (7 sets, daily range): BP systolic 122–140; BP diastolic 56–73; PULSE 63–89; RESP 15–18; TEMP 36.6–36.8; O2SAT 92–98
[2025-06-07 06:12] LABS: Hematocrit 38.3 % (40-54); Hemoglobin 12.7 g/dL (13.0-16.5); Immature Granulocytes Count 0.020 X10^3/uL (0.0-0.0); Mean Corp Hgb Conc 33.2 g/dL (32-36); Mean Corpuscular Volume 100.3 fL (80-94); Mean Platelet Vol. 9.5 fl (6.2-12.0); NRBC Flagged by Analyzer 0 % (0-5); Platelet Count 153 K/mm3 (150-450); RBC Distribution Width CV 14.6 % (11.6-14.6); RBC Distribution Width SD 54.6 fl (35.1-43.9); Red Blood Count 3.82 M/mm3 (4.6-6.2); White Blood Count 4.1 K/mm3 (4.4-11.0)
[2025-06-07 06:31] LABS: Prothrombin Time (Protime)PT. 21.0 SECONDS (11.7-14.9)
[2025-06-07 06:52] LABS: Anion Gap 10 (5-15); BUN 16 mg/dL (4-19); BUN/Creat Ratio 17.6 RATIO (10-20); Calcium,Total 8.9 mg/dL (7.6-11.0); Carbon Dioxide 22.9 mmol/L (21.0-32.0); Chloride 104 mmol/L (98-108); Estimated Creatinine Clearance 79.12 ml/min (50-250); Glucose 136 mg/dL (70-99); Potassium 4.2 mmol/L (3.3-5.1)
[2025-06-07] MEDS: Ceftriaxone 2 GM in 0.9% Normal Saline (50mL MB+) 50 ML IV (09:43)
--- NOTE | 2025-06-07 10:32 | VDLE_ITS ---
Reason For Study Reason For Study: LLE Pain and Swelling RIGHT LEFT CFV is compressible, spontaneous, phasic, competent GSV is normal. and demonstrates normal augmentation. CFV is compressible, spontaneous, phasic, competent, Procedure and demonstrates normal augmentation. This is a venous duplex using B-mode, color flow and FV is compressible, spontaneous, phasic, competent spectral Doppler. and demonstrates normal augmentation. Exam performed portable in patient room. POP V is compressible, phasic, and INCOMPETENT for A preliminary report was called and/or faxed to greater than 1.0 second. Patients RN. Lt T/P Trunk and Lt GastrocV are partially compressible with bright intraluminal echoes consistent with Chronic DVT. PTV is compressible. LT PerV is compressible. VL/Venous Duplex US, Unilateral Interpretation Summary Chronic venous changes are noted in the left tibio-peroneal trunk and gastrocne mius vein, which are partially compressible and demonstrate bright intraluminal echogenicity. The remainder of the left lower extremity deep venous system is patent and compressible. There is no evidence of acute venous thrombo sis. The left popliteal vein is incompetent. The left great saphenous vein appears patent and compressible segm entally. The right common femoral vein is patent and compressible . Ordering Physician: Loli Crow Referring Physician: Wade Padilla Performed By: Vanna Quintana, RDCS, RVT
--- NOTE | 2025-06-07 11:20 | CASEMGMT ---
Addendum entered by Hanna Franco 06/09/25 14:23: Late entry for 06/07/25 TOREY VICKERS into pt room, pt sitting up in bed with family members present. Pt states he is going to have a meeting with the physician. Pt aware that TOREY VICKERS was just checking in on him to see how he was doing and if he had any needs. Pt denies needs at this time. Original Note: Leena in registration made TOREY VICKERS that pt was teary when signing IMM. She states pt reported he was going to appeal his dc.
[2025-06-07] MEDS: Vancomycin HCl 1,000 MG in 0.9% Normal Saline (250mL Bag) 250 ML 250 MG IV (12:04)
--- NOTE | 2025-06-07 14:23 | PCM.PN.ID ---
Physical Exam Narrative Some chills, leg with increased swelling, warmth, redness. No n/v/d. Const alert and no apparent distress General Appearance: cooperative Resp normal air movement and clear to auscultation bilaterally Cardio regular rate and regular rhythm GI soft to palpation, non-tender and non-distended Extremity General Extremity: edema Skin Skin Narrative: L lower leg increased warmth, tenderness, redness, swelling ID ID: Route of nutrition/ use of supplements: [] Nutritional Intake: [] IV Site: [] James Catheter: [] Assessment & Plan Assessment/Plan (1) Left leg cellulitis: (2) Sepsis: PLAN: Sepsis due to aeromonas bacteremia from LLE cellulitis - had freshwater pond exposure. Sx worsened after initial improvement. On ceftriaxone. Vanc added 06/06. CT repeated. Doppler repeated today. Will change ceftriaxone to zosyn. D/w nursing and primary team. Will follow (3) Bacteremia due to Gram-negative bacteria:
[2025-06-07] MEDS: Warfarin (PBKC) 5 MG Tablet PO (16:28)
--- NOTE | 2025-06-07 16:51 | NURSING ---
This RN and Dr. Crow rounded with patient this morning around [address] Crow informed patient that due to the patient stating the swelling is getting worse in his leg that she wanted a doppler ordered and for infectious disease to see patient before implementing anything new to the patients plan of care. Patient seemed agitated with his plan of care, stating that he wanted to be transferred if nothing new was going to be done for him. Infectious disease seen patient and changed the IV antiobitc to zosyn and the doppler was performed showing no new blood clots. Dr Crow then called to gather the patients family (his advoates) to be present to go over results and new plan of care. Pt was visibly upset calling some of staff incompetent due to having problems inserting a guillen catheter last week, and liars, stating how he has been displeased with parts of his care. Dr. Crow assured patient that the staff here is competent. Dr. Crow spent over an hour discussing with the patient and family the new plan of care.
--- NOTE | 2025-06-07 17:18 | PN_ITS ---
Subjective Subjective Patient seen and examined. I saw the patient with his nurse by his bedside. Patient still complained of left lower extremity swelling. He was very concerned about the swelling and said he did not want to be discharged until the swelling had fully resolved. He admitted to some pain but denied any fever or chills, nausea or vomiting or any significant redness of the left lower extremity. Review of systems otherwise negative. WBCs 4.1. Objective Data Objective Data Vital Signs: Vital Signs Temp Pulse Resp BP Pulse Ox O2 Del Method O2 Flow Rate 97.9 F 88 18 140/59 H 97 Room Air 2 06/07/25 09:00 06/07/25 15:48 06/07/25 15:48 06/07/25 09:00 06/07/25 09:00 06/07/25 09:00 06/02/25 02:00 FiO2 21 06/07/25 04:11 Oxygen Flow Rate (L/min) 2 Oxygen Delivery Method Room Air Weight: 201 lb Body Mass Index (BMI) 28.8 Intake & Output: Intake and Output for Last 24 Hours 06/05/25 06/06/25 06/07/25 23:59 23:59 23:59 Intake Total 500 / 500 1310 / 1310 990 / 990 Output Total 2800 / 3100 2125 / 2725 3200 / 3200 Balance -2300 / -2600 -815 / -1415 -2210 / -2210 Lab / Micro Data 06/07/25 05:52 06/07/25 05:52 Labs: Laboratory Results - last 24 hr 06/07/25 05:52: WBC 4.1 L, RBC 3.82 L, Hgb 12.7 L, Hct 38.3 L, MCV 100.3 H, MCH 33.2 H, MCHC 33.2, RDW Std Deviation 54.6 H, RDW Coeff of Marcelle 14.6, Plt Count 153, MPV 9.5, Immature Gran % (Auto) 0.500, Neut % (Auto) 57.6, Lymph % (Auto) 27.6, [place] % (Auto) 10.2 H, Eos % (Auto) 3.4, Baso % (Auto) 0.7, Absolute Neuts (auto) 2.4, Absolute Lymphs (auto) 1.13, Nucleated RBC % 0, PT 21.0 H, INR 1.8, Sodium 136, Potassium 4.2, Chloride 104, Carbon Dioxide 22.9, Anion Gap 10, BUN 16, Creatinine 0.93, Estim Creat Clear Calc 79.12, Est GFR (MDRD) Non-Af 87, BUN/Creatinine Ratio 17.6, Glucose 136 H, Calcium 8.9 Micro: Microbiology 06/02/25 02:25 Urine, Clean Catch Urine Culture - Final Culture exhibits no growth. 05/31/25 16:07 Blood Culture (Wb) - Left Hand Blood Culture - Final Aeromonas sobria 06/03/25 10:53 Mucosa - Nasopharyngeal Respiratory Panel (PCR) - Final 06/03/25 10:53 Mucosa - Nasopharyngeal Coronavirus COVID-19 PCR - Final Radiography Diagnostic Testing: Radiology Impression Lower Extremity CT 06/06/25 10:27 IMPRESSION: There is circumferential subcutaneous edema with no organized or drainable collection identified. The differential includes cellulitis and venous stasis. Reading Location: [facility] Venous Doppler Study 06/07/25 10:32 Interpretation Summary Chronic venous changes are noted in the left tibio-peroneal trunk and gastrocnemius vein, which are partially compressible and demonstrate bright intraluminal echogenicity. The remainder of the left lower extremity deep venous system is patent and compressible. There is no evidence of acute venous thrombosis. The left popliteal vein is incompetent. The left great saphenous vein appears patent and compressible segmentally. The right common femoral vein is patent and compressible . Ordering Physician: Loli Crow Referring Physician: Wade Padilla Performed By: Vanna Quintana, RDCS, RVT Physical Exam Const alert, oriented x3 and no apparent distress General Appearance: cooperative HEENT normocephalic, head/scalp atraumatic, moist oral mucous membranes and oropharynx normal Eyes EOMs intact bilaterally Neck supple and no JVD Lymph Lymphatic: no lymphedema noted Resp normal respiratory effort, normal air movement and clear to auscultation bilaterally Cardio regular rate, regular rhythm, S1 normal heart sound, S2 normal heart sound and no murmurs GI normal to inspection, nondistended, normoactive bowel sounds, soft to palpation and non-tender Extremity normal capillary refill Extremity Narrative: LLE has moderate swelling from calf to thigh. Minimal differential warmth. Minimal erythema. Has chronic venous stasis changes on right lower extremity. No calf tenderness. Skin Skin Narrative: Is on the extremities. Neuro CN's II-XII intact bilaterally and no focal motor deficits Motor Exam: strength 5/5 throughout Psych thought process normal Psych Narrative: argumentative, upset about his care Activity / Motor Behavior: restless Assessment & Plan Assessment/Plan (1) Bacteremia due to Gram-negative bacteria: (2) Left leg cellulitis: PLAN: Plan #LLE cellulitis * Patient still complains of the left lower extremity being swollen. I did get a duplex of the right lower extremity today which showed chronic DVT of the left lower extremity. * ID reviewed patient today and felt that the left lower extremity was more swollen. Blood cultures did grow Aeromonas which was thought to be due to his exposure to aquatic environment from [place] in his backyard. * On IV ceftriaxone. ID broaden antibiotics to IV Zosyn today. Repeat blood cultures obtained. * I had an extensive discussion with patient and his as well as daughter and son-in-law. Their questions were answered and concerns assuaged. Patient advocate was also called to speak to patient. Patient was given the option of getting another doctor to look after him since patient's did not seem to have trust in his medical team and felt that the team was lying to him. Patient and family after 30-minute discussion agreeable to have this hospitalist continue taking care of them and expressed confidence in the medical team. * #Bacteremia due to Aeromonas sobria: As above. #Urinary retention: * James catheter in situ. Patient will need follow-up with urology on outpatient basis. Patient states he does not want to see Dr. Arechiga and preferred to follow-up with someone in [place]. * Patient said he had selected urologist he wanted to follow and wanted the medical team to call and make the appointment for him. Patient counseled that it would be advisable for him to make the appointment himself so that he could select a day and a time that would work best for him. * Patient was upset about this initially but his family calmed him down and family said they will call to make the appointment for him. On Flomax. #Hypoxia: Resolved #History of chronic DVT in the left lower extremity: On Coumadin. INR today is 1.8. On 5 mg of Coumadin. Will continue this. Did receive 7.5 mg of Coumadin yesterday. #GERD: On PPI #Nicotine dependence: Counseled to quit. Nicotine patch daily #Hypertension: On hydrochlorothiazide DVT prophylaxis: On Coumadin. INR was 1.8 today. Goal is between 2 and 3. Charges/Coding Visit Charges Inpatient E&M: 80408 Subs Hosp L2
[2025-06-07] MEDS: Piperacil/Tazobactam 3.375 GM in 0.9% Normal Saline (50mL MB+) 50 ML IV (18:03)
[2025-06-08] VITALS (7 sets, daily range): BP systolic 126–137; BP diastolic 60–76; PULSE 61–80; RESP 15–18; TEMP 36.4–36.6; O2SAT 92–96
[2025-06-08 00:36] LABS: Vancomycin, Trough Level 14.3 ug/mL (5.0-15.0)
--- NOTE | 2025-06-08 00:53 | PCM.RX.CS ---
Consult Antibiotic Management Pharmacy has been consulted to manage selected antibiotic: Vancomycin Type of Intervention Type of Consult: Follow-up Suspected Infection Suspected Infection: Skin/Soft tissue Labs Labs: Sodium 136 mmol/L (133-145) 06/07/25 05:52 Potassium 4.2 mmol/L (3.3-5.1) 06/07/25 05:52 Chloride 104 mmol/L (98-108) 06/07/25 05:52 Carbon Dioxide 22.9 mmol/L (21.0-32.0) 06/07/25 05:52 Anion Gap 10 (5-15) 06/07/25 05:52 BUN 16 mg/dL (4-19) 06/07/25 05:52 Creatinine 0.93 mg/dL (0.70-1.20) 06/07/25 05:52 Est GFR (MDRD) Non-Af 87 (>60) 06/07/25 05:52 BUN/Creatinine Ratio 17.6 RATIO (10-20) 06/07/25 05:52 Glucose 136 mg/dL (70-99) H 06/07/25 05:52 Vancomycin Trough 14.3 ug/mL (5.0-15.0) 06/07/25 23:33 Microbiology Microbiology: Microbiology 06/02/25 02:25 Urine, Clean Catch Urine Culture - Final Culture exhibits no growth. 05/31/25 16:07 Blood Culture (Wb) - Left Hand Blood Culture - Final Aeromonas sobria 06/03/25 10:53 Mucosa - Nasopharyngeal Respiratory Panel (PCR) - Final 06/03/25 10:53 Mucosa - Nasopharyngeal Coronavirus COVID-19 PCR - Final Dosing Weight Weight used for dosin kg Estimated Creatinine Clearance Estimated Creatinine Clearance: 79 Goal Trough Goal Trough: 15-20 mcg/mL Pharmacy Plan for Drug Dosing Pharmacy Plan for Drug Dosing: Vancomycin trough level of 14.3, drawn 11.5hrs post-dose, was a little below the target range of 15-20. Will increase dose to 1250mg q12h, and will draw another trough prior to fourth dose of the new regimen. Pharmacy Service will continue to monitor and adjust dosing as required. Follow-Up Labs Follow-Up Labs: Trough: Vancomycin Date/Time Labs Ordered Labs to be done on [date and time ordered]: 06/09/25 @1230
[2025-06-08] MEDS: Vancomycin HCl 1,250 MG in 0.9% Normal Saline (250mL Bag) 250 ML 167 MG IV (00:54)
[2025-06-08] MEDS: Piperacil/Tazobactam 3.375 GM in 0.9% Normal Saline (50mL MB+) 50 ML IV ×3 (02:44→18:12)
[2025-06-08 06:36] LABS: Anion Gap 10 (5-15); BUN 19 mg/dL (4-19); BUN/Creat Ratio 19.8 RATIO (10-20); Calcium,Total 8.8 mg/dL (7.6-11.0); Carbon Dioxide 23.5 mmol/L (21.0-32.0); Chloride 104 mmol/L (98-108); Estimated Creatinine Clearance 75.86 ml/min (50-250); Glucose 97 mg/dL (70-99); Potassium 4.3 mmol/L (3.3-5.1)
[2025-06-08 06:44] LABS: Prothrombin Time (Protime)PT. 24.1 SECONDS (11.7-14.9)
[2025-06-08 06:46] LABS: Hematocrit 39.8 % (40-54); Hemoglobin 13.0 g/dL (13.0-16.5); Immature Granulocytes Count 0.010 X10^3/uL (0.0-0.0); Mean Corp Hgb Conc 32.7 g/dL (32-36); Mean Corpuscular Volume 103.1 fL (80-94); Mean Platelet Vol. 9.8 fl (6.2-12.0); NRBC Flagged by Analyzer 0 % (0-5); Platelet Count 172 K/mm3 (150-450); RBC Distribution Width CV 14.4 % (11.6-14.6); RBC Distribution Width SD 55.1 fl (35.1-43.9); Red Blood Count 3.86 M/mm3 (4.6-6.2); White Blood Count 4.6 K/mm3 (4.4-11.0)
[2025-06-08] MEDS: 0.9% Saline Lock 10 ML Syringe IV ×3 (09:29→18:12)
[2025-06-08] MEDS: 0.9% Normal Saline (250mL Bag) 250 ML 15 ML IV (09:34)
--- NOTE | 2025-06-08 09:56 | PCM.PN.ID ---
Physical Exam Narrative Feeling better, leg a little less sore/red. No fever. Resp normal air movement and clear to auscultation bilaterally Cardio regular rate and regular rhythm GI soft to palpation, non-tender and non-distended Extremity General Extremity: edema Skin Skin Narrative: LLE improved redness/swelling ID ID: Route of nutrition/ use of supplements: [] Nutritional Intake: [] IV Site: [] James Catheter: [] Assessment & Plan Assessment/Plan (1) Left leg cellulitis: (2) Sepsis: PLAN: Sepsis due to aeromonas bacteremia from LLE cellulitis - had freshwater pond exposure. Sx worsened after initial improvement. On zosyn, improving. Will stop vanc. D/w primary team. Will follow (3) Bacteremia due to Gram-negative bacteria:
--- NOTE | 2025-06-08 12:05 | PN_ITS ---
Subjective Subjective Patient seen and examined today. His daughter was by his bedside. He said he felt his lower extremity swelling had improved slightly. Review of systems is otherwise negative. He has remained hemodynamically stable. Objective Data Objective Data Vital Signs: Vital Signs Temp Pulse Resp BP Pulse Ox O2 Del Method O2 Flow Rate 97.5 F L 61 16 126/76 H 94 Room Air 2 06/08/25 07:54 06/08/25 07:54 06/08/25 07:54 06/08/25 07:54 06/08/25 07:54 06/08/25 07:54 06/02/25 02:00 FiO2 21 06/08/25 00:25 Oxygen Flow Rate (L/min) 2 Oxygen Delivery Method Room Air Weight: 201 lb Body Mass Index (BMI) 28.8 Intake & Output: Intake and Output for Last 24 Hours 06/06/25 06/07/25 06/08/25 23:59 23:59 23:59 Intake Total 1310 / 1310 1640 / 1640 325 / 325 Output Total 2125 / 2725 5900 / 5900 500 / 500 Balance -815 / -1415 -4260 / -4260 -175 / -175 Lab / Micro Data 06/08/25 05:25 06/08/25 05:25 Labs: Laboratory Results - last 24 hr 06/07/25 23:33: Vancomycin Trough 14.3 06/08/25 05:25: WBC 4.6, RBC 3.86 L, Hgb 13.0, Hct 39.8 L, MCV 103.1 H, MCH 33.7 H, MCHC 32.7, RDW Std Deviation 55.1 H, RDW Coeff of Marcelle 14.4, Plt Count 172, MPV 9.8, Immature Gran % (Auto) 0.200, Neut % (Auto) 55.8, Lymph % (Auto) 28.7, [place] % (Auto) 12.0 H, Eos % (Auto) 2.6, Baso % (Auto) 0.7, Absolute Neuts (auto) 2.6, Absolute Lymphs (auto) 1.32, Nucleated RBC % 0, PT 24.1 H, INR 2.1, Sodium 138, Potassium 4.3, Chloride 104, Carbon Dioxide 23.5, Anion Gap 10, BUN 19, Creatinine 0.97, Estim Creat Clear Calc 75.86, Est GFR (MDRD) Non-Af 82, BUN/Creatinine Ratio 19.8, Glucose 97, Calcium 8.8 Micro: Microbiology 06/02/25 02:25 Urine, Clean Catch Urine Culture - Final Culture exhibits no growth. 05/31/25 16:07 Blood Culture (Wb) - Left Hand Blood Culture - Final Aeromonas sobria 06/03/25 10:53 Mucosa - Nasopharyngeal Respiratory Panel (PCR) - Final 06/03/25 10:53 Mucosa - Nasopharyngeal Coronavirus COVID-19 PCR - Final Radiography Diagnostic Testing: Radiology Impression Venous Doppler Study 06/07/25 10:32 Interpretation Summary Chronic venous changes are noted in the left tibio-peroneal trunk and gastrocnemius vein, which are partially compressible and demonstrate bright intraluminal echogenicity. The remainder of the left lower extremity deep venous system is patent and compressible. There is no evidence of acute venous thrombosis. The left popliteal vein is incompetent. The left great saphenous vein appears patent and compressible segmentally. The right common femoral vein is patent and compressible . Ordering Physician: Loli Crow Referring Physician: Wade Padilla Performed By: Vanna Quintana, JATINCS, RVT Physical Exam Const alert, oriented x3 and no apparent distress General Appearance: cooperative HEENT normocephalic, head/scalp atraumatic, moist oral mucous membranes and oropharynx normal Eyes EOMs intact bilaterally Neck supple and no JVD Lymph Lymphatic: no lymphedema noted Resp normal respiratory effort, normal air movement, no retractions, no use of accessory muscles and clear to auscultation bilaterally Cardio regular rate, regular rhythm, S1 normal heart sound, S2 normal heart sound and no murmurs GI normal to inspection, nondistended, normoactive bowel sounds, soft to palpation, non-tender and non-distended Extremity normal capillary refill Extremity Narrative: LLE still has moderate swelling from calf to thigh. Minimal differential warmth. Minimal erythema. Has chronic venous stasis changes on right lower extremity. No calf tenderness. Skin Skin Narrative: Is on the extremities. Neuro CN's II-XII intact bilaterally, moves all extremities and no focal motor deficits Sensorium / Orientation: awake and alert Motor Exam: strength 5/5 throughout and general weakness Psych thought process normal and cooperative Appearance: appropriate Assessment & Plan Assessment/Plan (1) Bacteremia due to Gram-negative bacteria: (2) Left leg cellulitis: PLAN: Plan #LLE cellulitis * He feels his left lower extremity swelling has improved slightly. I did get a duplex of the right lower extremity yesterday which showed chronic DVT of the left lower extremity. * ID reviewed patient today and felt that the left lower extremity was more swollen. Blood cultures did grow Aeromonas which was thought to be due to his exposure to aquatic environment from [place] pond in his backyard. * On IV ceftriaxone. ID broaden antibiotics to IV Zosyn today. Repeat blood cultures obtained. * on IV zosyn. Repeat Blood cultures pending. * #Bacteremia due to Aeromonas sobria: As above. #Urinary retention: * James catheter in situ. Patient will need follow-up with urology on outpatient basis. Patient states he does not want to see Dr. Arechiga and preferred to follow-up with someone in [place]. * to follow up with urology on outpatient basis #Hypoxia: Resolved #History of chronic DVT in the left lower extremity: On Coumadin. INR today is 2.1. On 5 mg of Coumadin. Target INR is 2-3 #GERD: On PPI #Nicotine dependence: Counseled to quit. Nicotine patch daily #Hypertension: On hydrochlorothiazide DVT prophylaxis: On Coumadin. INR was 2.1 today. Goal is between 2 and 3. Charges/Coding Visit Charges Inpatient E&M: 05716 Subs Hosp L2
[2025-06-08] MEDS: guaiFENesin 10 ML UDC (200MG/10ML) PO ×2 (14:19→21:11)
[2025-06-08] MEDS: Warfarin (PBKC) 5 MG Tablet PO (18:11)
[2025-06-08] MEDS: Senna/Docusate Sodium 1 Tablet 2 TABLET PO (21:07)
[2025-06-09] MEDS: Piperacil/Tazobactam 3.375 GM in 0.9% Normal Saline (50mL MB+) 50 ML IV ×2 (02:06→09:33)
[2025-06-09] MEDS: 0.9% Saline Lock 10 ML Syringe IV ×2 (02:06→09:31)
[2025-06-09 02:15] VITALS: BP 127/63; PULSE 84; RESP 16; TEMP 36.6; O2SAT 94
[2025-06-09 06:10] LABS: Hematocrit 37.7 % (40-54); Hemoglobin 12.3 g/dL (13.0-16.5); Immature Granulocytes Count 0.010 X10^3/uL (0.0-0.0); Mean Corp Hgb Conc 32.6 g/dL (32-36); Mean Corpuscular Volume 103.9 fL (80-94); Mean Platelet Vol. 9.5 fl (6.2-12.0); NRBC Flagged by Analyzer 0 % (0-5); Platelet Count 168 K/mm3 (150-450); RBC Distribution Width CV 14.6 % (11.6-14.6); RBC Distribution Width SD 56.2 fl (35.1-43.9); Red Blood Count 3.63 M/mm3 (4.6-6.2); White Blood Count 4.3 K/mm3 (4.4-11.0)
[2025-06-09 06:58] LABS: Anion Gap 8 (5-15); BUN 21 mg/dL (4-19); BUN/Creat Ratio 19.4 RATIO (10-20); Calcium,Total 8.8 mg/dL (7.6-11.0); Carbon Dioxide 25.3 mmol/L (21.0-32.0); Chloride 104 mmol/L (98-108); Estimated Creatinine Clearance 68.13 ml/min (50-250); Glucose 100 mg/dL (70-99); Potassium 4.6 mmol/L (3.3-5.1)
[2025-06-09] MEDS: guaiFENesin 10 ML UDC (200MG/10ML) PO (09:32)
[2025-06-09 10:24] VITALS: BP 144/52; PULSE 62; RESP 15; TEMP 36.7; O2SAT 95
[2025-06-09 10:47] LABS: Prothrombin Time (Protime)PT. 25.8 SECONDS (11.7-14.9)
--- NOTE | 2025-06-09 13:13 | PCM.PN.ID ---
Physical Exam Narrative Feeling better, leg less sore, no fever, no n/v/d. Const alert and no apparent distress General Appearance: cooperative Resp normal air movement and clear to auscultation bilaterally Cardio regular rate and regular rhythm GI soft to palpation, non-tender and non-distended Skin Skin Narrative: LLE less red/swollen/warm/tender ID ID: Route of nutrition/ use of supplements: [] Nutritional Intake: [] IV Site: [] James Catheter: [] Assessment & Plan Assessment/Plan (1) Left leg cellulitis: (2) Sepsis: PLAN: Sepsis due to aeromonas bacteremia from LLE cellulitis - had freshwater pond exposure. Sx worsened after initial improvement. On zosyn, improving. Will write for one week po levaquin and flagyl at discharge. D/w primary team. Will follow prn (3) Bacteremia due to Gram-negative bacteria:
--- NOTE | 2025-06-09 14:20 | DS.PCM_ITS ---
Providers Date of Admission: 05/31/25 Date of Discharge: 06/09/25 Primary Care Physician: Dr. Wade Padilla MD Consultations 06/03/25 09:44 Consult: Infectious Disease Routine Consulting Provider: Fredo Ybarra Reason for Consult: bacteremia EMERGENT Consult: No Notified: Yes Date Notified: 06/03/25 Time Notified: 09:53 Method of Notification: Text Reason For Visit: LLE CELLULITIS Diagnosis Discharge Diagnosis (1) Left leg cellulitis: Status: Acute Code(s): L03.116 - Cellulitis of left lower limb (2) Sepsis: Status: Acute Code(s): A41.9 - Sepsis, unspecified organism (3) Bacteremia due to Gram-negative bacteria: Status: Acute Code(s): R78.81 - Bacteremia Plan #LLE cellulitis * He feels his left lower extremity swelling has improved slightly. I did get a duplex of the right lower extremity yesterday which showed chronic DVT of the left lower extremity. * ID reviewed patient today and felt that the left lower extremity was more swollen. Blood cultures did grow Aeromonas which was thought to be due to his exposure to aquatic environment from his pond in his backyard. * On IV ceftriaxone. ID broaden antibiotics to IV Zosyn today. Repeat blood cultures obtained. * on IV zosyn. Repeat Blood cultures pending. * #Bacteremia due to Aeromonas sobria: As above. #Urinary retention: * James catheter in situ. Patient will need follow-up with urology on outpatient basis. Patient states he does not want to see Dr. Arechiga and preferred to follow-up with someone in [place]. * to follow up with urology on outpatient basis #Hypoxia: Resolved #History of chronic DVT in the left lower extremity: On Coumadin. INR today is 2.1. On 5 mg of Coumadin. Target INR is 2-3 #GERD: On PPI #Nicotine dependence: Counseled to quit. Nicotine patch daily #Hypertension: On hydrochlorothiazide DVT prophylaxis: On Coumadin. INR was 2.1 today. Goal is between 2 and 3. Medications at Discharge Home Medications calcium carbonate (Calcium 600) 600 mg PO DAILY SUPPLEMENT 08/24/19 zinc sulfate 50 mg zinc (220 mg) capsule 50 mg PO DAILY PRN SUPPLEMENT 09/25/23 albuterol sulfate 90 mcg/actuation aerosol inhaler 1 inh inhalation Q6H PRN shortness of breath or wheezing #8.5 grams 09/28/23 essential oil 1 drp .Route PRN PRN calming 10/21/23 ipratropium 0.5 mg-albuterol 3 mg (2.5 mg base)/3 mL nebulization soln 3 ml inhalation Q6H PRN shortness of breath or wheezing #90 mL 11/22/23 Handicap Placard #1 ea 12/09/23 warfarin 6 mg tablet 6 mg PO MO blood thinner 04/28/24 pantoprazole 40 mg tablet,delayed release 40 mg PO DAILY PRN indigestion 07/27/24 ascorbic acid (vitamin C) 1,000 mg tablet (Vitamin C) 1 g PO DAILY vitamin 09/15/24 cholecalciferol (vitamin D3) 25 mcg (1,000 unit) tablet (Vitamin D3) 1,000 unit PO DAILY vitamin 09/15/24 rosuvastatin 20 mg tablet 20 mg PO DAILY CHOLESTEROL #90 tabs 12/28/24 hydrochlorothiazide 25 mg tablet 25 mg PO DAILY diuretic #60 tabs 04/09/25 comp.stocking,thigh,long,large #2 ea 05/19/25 gabapentin 300 mg capsule 300 mg PO QDAY NERVE PAIN 05/19/25 warfarin 4 mg tablet 4 mg PO DAILY previous blood clots 05/19/25 levofloxacin 500 mg tablet 500 mg PO DAILY #7 tabs 06/09/25 metronidazole 500 mg tablet 500 mg PO TID #20 tabs 06/09/25 Hospital Course Operations None Procedures None Summary of Care Provided Minutes Spent on Discharge: 42 Hospital Course: Patient is a 74-year-old male with a past medical history as outlined was admitted to the ED on 05/31/2025 with complaint of left lower extremity pain and redness. He had been on doxycycline and Keflex for cellulitis several weeks prior to admission but said his symptoms had recurred and he had associated fever and chills. On admission he was febrile 100.5 Fahrenheit. WBC was 13.9 and lactic acid was 2.1. INR was 2.1. X-ray of the tibia and fibula showed possible lucency through the distal fibula. He was admitted to be managed for cellulitis of the left lower extremity. Patient had been at a pond cleaning it out and so they were concerned that he may have had a cellulitis from this. He was admitted and managed for cellulitis of the left lower extremity. He was started on IV antibiotics. Patient did have a prolonged and protracted course in the hospital as the leg remains swollen. ID was consulted. Patient blood cultures grew Aeromonas so. Which was thought to be due to aquatic environment exposure. His antibiotics were broadened from IV ceftriaxone to IV Zosyn. Duplex of the lower extremity done did show a chronic DVT in the left lower extremity for which he was already on Coumadin. Patient's lower extremity redness and swelling did gradually improve and he felt better. He was therefore discharged home on 06/09/2025 on p.o. levofloxacin and metronidazole per ID for 7-day course. He is to follow-up with his primary care doctor within 1 to 2 weeks. Patient was seen and examined prior to discharge. He has no active complaints. He had an uneventful night. Review of systems otherwise negative. Labs and vitals reviewed. Home medication reviewed and reconciled. Physical Exam Const alert, oriented x3 and no apparent distress General Appearance: cooperative HEENT normocephalic, head/scalp atraumatic, hearing grossly normal bilaterally, moist oral mucous membranes and oropharynx normal Mouth: oral and palatal mucosa normal Eyes EOMs intact bilaterally and conjunctivae normal Neck supple and no JVD Lymph Lymphatic: no lymphedema noted Resp normal respiratory effort, normal air movement, no retractions, no use of accessory muscles and clear to auscultation bilaterally Cardio regular rate, regular rhythm, S1 normal heart sound, S2 normal heart sound and no murmurs GI normal to inspection, nondistended, normoactive bowel sounds, soft to palpation, non-tender and non-distended Extremity normal capillary refill Extremity Narrative: LLE still has moderate swelling from calf to thigh. Minimal differential warmth. Minimal erythema. Has chronic venous stasis changes on right lower extremity. No calf tenderness. Skin Skin Narrative: As under the extremities. Neuro CN's II-XII intact bilaterally, moves all extremities and no focal motor deficits Sensorium / Orientation: awake and alert Motor Exam: strength 5/5 throughout and general weakness Psych thought process normal and cooperative Appearance: appropriate Activity / Motor Behavior: restless Weight / BMI Weight Weight: 201 lb Body Mass Index (BMI) 28.8 ABG / Lab / Microbiology Data 06/09/25 05:23 06/09/25 05:23 Laboratory: Laboratory Results - last 24 hr 06/09/25 05:23: WBC 4.3 L, RBC 3.63 L, Hgb 12.3 L, Hct 37.7 L, MCV 103.9 H, MCH 33.9 H, MCHC 32.6, RDW Std Deviation 56.2 H, RDW Coeff of Marcelle 14.6, Plt Count 168, MPV 9.5, Immature Gran % (Auto) 0.200, Neut % (Auto) 54.8, Lymph % (Auto) 28.8, [place] % (Auto) 12.9 H, Eos % (Auto) 2.8, Baso % (Auto) 0.5, Absolute Neuts (auto) 2.3, Absolute Lymphs (auto) 1.23, Nucleated RBC % 0, Sodium 138, Potassium 4.6, Chloride 104, Carbon Dioxide 25.3, Anion Gap 8, BUN 21 H, Creatinine 1.08, Estim Creat Clear Calc 68.13, Est GFR (MDRD) Non-Af 72, BUN/Creatinine Ratio 19.4, Glucose 100 H, Calcium 8.8 06/09/25 10:25: PT 25.8 H, INR 2.3 Microbiology: Microbiology 06/07/25 17:53 Blood Culture (Wb) - Right Hand Blood Culture - Preliminary No growth in 48 hours. 06/07/25 17:46 Blood Culture (Wb) - Right Wrist Blood Culture - Preliminary No growth in 48 hours. 06/02/25 02:25 Urine, Clean Catch Urine Culture - Final Culture exhibits no growth. 05/31/25 16:07 Blood Culture (Wb) - Left Hand Blood Culture - Final Aeromonas sobria 06/03/25 10:53 Mucosa - Nasopharyngeal Respiratory Panel (PCR) - Final 06/03/25 10:53 Mucosa - Nasopharyngeal Coronavirus COVID-19 PCR - Final D/C Instructions Discharge Activity: Return to Normal Activity Weight Bearing Status: Weight bearing as tolerated Call your doctor if you observe: Fever of 101 or Higher, Shortness of breath, Dizziness, Swelling in the ankles, Chest pain and Uncontrolled pain DC O2, CPAP, BIPAP Needs Home O2 Discharge instructions: No Meaningful Use Info Meaningful Use Meaningful Use Diagnoses (Choose all that apply): None applicable Discharge Plan Admission Admit Date/Time: 05/31/25 18:21 Primary Reason for Your Visit: cellulitis of the LLE Attending Provider: Loli Crow Primary Care Provider: Wade Padilla Consulting Providers: Nevin Woodward; Fredo Ybarra; Cruzito Montoya Instructions Patient Instructions: Cellulitis, Urinary Catheter Bag Care, Indwelling Urinary Catheter Dc, James Catheter Male Ch Discharge Orders/Prescriptions Prescriptions: New levofloxacin 500 mg tablet 500 mg PO DAILY Qty: 7 0RF metronidazole 500 mg tablet 500 mg PO TID Qty: 20 0RF Continued calcium carbonate [Calcium 600] 600 mg calcium (1,500 mg) tablet 600 mg PO DAILY pantoprazole 40 mg tablet,delayed release (DR/EC) 40 mg PO DAILY PRN (Reason: indigestion) Patient Comments: takes prn now essential oil 1 drp oil 1 drp .Route PRN PRN (Reason: calming) Rx Instructions: 1 drp as needed PRN; rub on skin prn jojoba, smoking sensation craving relief ipratropium-albuterol 0.5 mg-3 mg(2.5 mg base)/3 mL solution for nebulization 3 ml inhalation Q6H PRN (Reason: shortness of breath or wheezing) Qty: 90 3RF gabapentin 300 mg capsule 300 mg PO QDAY warfarin 4 mg tablet 4 mg PO DAILY Protocol: Dose Management Protocol Text: Patient Instructed to take: warfarin 4 mg (1 Tab) on [place], [place], , [place], [place], SA warfarin 4 mg (1.5 Tabs) on WE Rx Instructions: Take as directed (DME) comp.stocking,thigh,long,large Misc See Rx Instructions .Route Qty: 2 3RF Rx Instructions: As directed. 20 - 30 mmHg zinc sulfate 50 mg zinc (220 mg) capsule 50 mg PO DAILY PRN (Reason: SUPPLEMENT) Patient Comments: pt states takes zinc periodically albuterol sulfate 90 mcg/actuation HFA aerosol inhaler 1 inh inhalation Q6H PRN (Reason: shortness of breath or wheezing) Qty: 8.5 2RF cholecalciferol (vitamin D3) [Vitamin D3] 25 mcg (1,000 unit) tablet 1,000 unit PO DAILY ascorbic acid (vitamin C) [Vitamin C] 1,000 mg tablet 1 g PO DAILY (DME) Handicap Placard See Rx Instructions .ROUTE .MEDSUPPLY Qty: 1 0RF Rx Instructions: As directed, length of time 3 years warfarin 6 mg tablet 6 mg PO MO rosuvastatin 20 mg tablet 20 mg PO DAILY Qty: 90 3RF hydrochlorothiazide 25 mg tablet 25 mg PO DAILY Qty: 60 1RF Referrals / Follow Up: Wade Padilla MD [Primary Care Provider, Internal Medicine] - Within 1 Week Dejon Carlson MD [Non-Staff, Medical] - 06/10/25 7:30 am Disposition Disposition (needs filled in before D/C Order can be placed): Home, Self Care Charges/Coding Visit Charges Inpatient E&M: 50763 Disch Hosp >30min
--- NOTE | 2025-06-09 14:23 | CASEMGMT ---
Pt seen ambulating halls with family member. Plan for dc this date.
[2025-06-09 14:53] VITALS: BP 139/69; PULSE 56; RESP 16; TEMP 36.6; O2SAT 94
--- NOTE | 2025-06-09 16:10 | PHA.DC_ITS ---
Pharmacy [facility] Counseling Pharmacy Service has performed discharge medication reconciliation and counseling for this patient. 1. LEVOFLOXACIN 500MG PO DAILY X 7 DAYS 2. METRONIDAZOLE 500MG PO TID X 7 DAYS The patient's discharge medication list was reviewed for discrepancies and discrepancies were resolved. The patient was counseled on the following discharge medications and changes in medications for homegoing were reviewed. The Reason for Use, instructions for use, and potential side effects were reviewed for all new medications. The patient's questions regarding all of their medications were answered. The patient was able to verbally demonstrate an understanding of their discharge medications. Medications at Discharge Home Medications calcium carbonate (Calcium 600) 600 mg PO DAILY SUPPLEMENT 08/24/19 zinc sulfate 50 mg zinc (220 mg) capsule 50 mg PO DAILY PRN SUPPLEMENT 09/25/23 albuterol sulfate 90 mcg/actuation aerosol inhaler 1 inh inhalation Q6H PRN shortness of breath or wheezing #8.5 grams 09/28/23 essential oil 1 drp .Route PRN PRN calming 10/21/23 ipratropium 0.5 mg-albuterol 3 mg (2.5 mg base)/3 mL nebulization soln 3 ml inhalation Q6H PRN shortness of breath or wheezing #90 mL 11/22/23 Handicap Placard #1 ea 12/09/23 warfarin 6 mg tablet 6 mg PO MO blood thinner 04/28/24 pantoprazole 40 mg tablet,delayed release 40 mg PO DAILY PRN indigestion 07/27/24 ascorbic acid (vitamin C) 1,000 mg tablet (Vitamin C) 1 g PO DAILY vitamin 09/15/24 cholecalciferol (vitamin D3) 25 mcg (1,000 unit) tablet (Vitamin D3) 1,000 unit PO DAILY vitamin 09/15/24 rosuvastatin 20 mg tablet 20 mg PO DAILY CHOLESTEROL #90 tabs 12/28/24 hydrochlorothiazide 25 mg tablet 25 mg PO DAILY diuretic #60 tabs 04/09/25 comp.stocking,thigh,long,large #2 ea 05/19/25 gabapentin 300 mg capsule 300 mg PO QDAY NERVE PAIN 05/19/25 warfarin 4 mg tablet 4 mg PO DAILY previous blood clots 05/19/25 levofloxacin 500 mg tablet 500 mg PO DAILY #7 tabs 06/09/25 metronidazole 500 mg tablet 500 mg PO TID #20 tabs 06/09/25
== END 2025-06-09 16:15 | disposition home or self-care (01) | DRG 603 ==
LOC: ED 15:48 → MS3 18:34
PROVIDERS: Internal Medicine; Internal Medicine Infectious Disease; Admitting Provider Internal Medicine; Emergency Provider Emergency Medicine; PCP Internal Medicine; Visit Provider Student in an Organized Health Care Education/Training Program
DX: L03.116 Cellulitis of left lower limb (principal); R78.81 Bacteremia; I82.502 Chronic embolism and thrombosis of unspecified deep veins of left lower extremity; J44.9 Chronic obstructive pulmonary disease, unspecified; I10 Essential (primary) hypertension; E78.5 Hyperlipidemia, unspecified; G47.33 Obstructive sleep apnea (adult) (pediatric); K21.9 Gastro-esophageal reflux disease without esophagitis; F17.210 Nicotine dependence, cigarettes, uncomplicated; R09.02 Hypoxemia; R45.1 Restlessness and agitation; Z79.01 Long term (current) use of 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s; Z79.899 Other long term (current) drug therapy; B96.89 Other specified bacterial agents as the cause of diseases classified elsewhere; R33.9 Retention of urine, unspecified
CPT/HCPCS: 36415; 71045; 73590; 73610; 73700; 80048; 80053; 80202; 81001; 83605; 85025; 85610; 87040; 87077; 87086; 87186; 87633; 87635; 93971; 94003; 94640; 94660; 94668; 97161; 97530; 99284; 99406; A4216; J0696; J2405

== ENCOUNTER → 2025-06-19 | Outpatient (CLI) | payer MEDICARE, SELFPAY ==
[2024-11-07 02:39] VITALS: BMI 28.6
--- NOTE | 2025-06-19 11:31 | US_ITS ---
PROCEDURE: POST VOID RESIDUAL BLADDER 06/19/2025 REASON FOR EXAM: URINARY RETENTION TECHNIQUE: Procedure Code: USPVU Modality: US Procedure: POST VOID RESIDUAL BLADDER COMPARISON: None FINDINGS: Prevoid volume of 153 mL and postvoid volume of 20 mL. Urinary bladder wall thickness is within normal limits measuring 0.5 cm. No bladder mass or stone is noted. No James catheter is noted. US/Post Void Residual Bladder IMPRESSION: No urinary retention. Unremarkable urinary bladder wall thickness. Reading Location: [id number]
[2025-06-19 12:28] LABS: Prothrombin Time (Protime)PT. 27.3 SECONDS (11.7-14.9)
== END | disposition home or self-care (01) ==
PROVIDERS: PCP Internal Medicine; Referring Provider Physician Assistant; Visit Provider Physician Assistant
DX: R33.9 Retention of urine, unspecified (principal); Z79.01 Long term (current) use of 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s
CPT/HCPCS: 36415; 51798; 85610

== ENCOUNTER 2025-07-09 09:33 | Outpatient (RCR) | payer MEDICARE, SELFPAY ==
[2024-11-07 02:39] VITALS: BMI 28.6
[2025-06-11 12:48] LABS: Prothrombin Time (Protime)PT. 20.9 SECONDS (11.7-14.9)
[2025-06-14 10:39] LABS: Prothrombin Time (Protime)PT. 23.5 SECONDS (11.7-14.9)
[2025-06-16 18:18] LABS: Prothrombin Time (Protime)PT. 28.1 SECONDS (11.7-14.9)
[2025-07-02 13:00] LABS: Prothrombin Time (Protime)PT. 26.1 SECONDS (11.7-14.9)
[2025-07-05 10:34] LABS: Prothrombin Time (Protime)PT. 27.4 SECONDS (11.7-14.9)
[2025-07-07 09:43] LABS: Prothrombin Time (Protime)PT. 31.1 SECONDS (11.7-14.9)
[2025-07-09 10:15] LABS: Prothrombin Time (Protime)PT. 31.0 SECONDS (11.7-14.9)
== END 2025-07-09 18:00 | disposition home or self-care (01) ==
LOC: LAB 09:33
PROVIDERS: PCP Internal Medicine; Referring Provider Physician Assistant; Visit Provider Internal Medicine
DX: Z79.01 Long term (current) use of 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s (principal); R33.9 Retention of urine, unspecified; I87.2 Venous insufficiency (chronic) (peripheral)
CPT/HCPCS: 36415; 85610; 87086

== ENCOUNTER → 2025-08-04 | Outpatient (CLI) | payer MEDICARE, SELFPAY ==
[2024-11-07 02:39] VITALS: BMI 28.6
--- NOTE | 2025-08-04 07:58 | VDLE_ITS ---
Reason For Study Reason For Study: LLE Swelling RIGHT LEFT CFV is compressible, spontaneous, phasic, competent CFV is compressible, spontaneous, phasic, competent, and demonstrates normal augmentation. and demonstrates normal augmentation. Procedure FV is compressible, spontaneous, phasic, competent This is a venous duplex using B-mode, color flow and and demonstrates normal augmentation. spectral Doppler. POP V is compressible, phasic, and INCOMPETENT for Exam performed in department. greater than 1.0 second. The exam was diagnostic. Lt T/P Trunk and Lt GastrocV are partially compressible with bright intraluminal echoes consistent with Chronic DVT. PTV is compressible. LT PerV is compressible. SFJ is competent and measures 0.66 cm. GSV proximal thigh measures 0.46 x 0.44 cm. GSV at knee measures 0.47x 0.49 cm. GSV is competent throughout. SSV mid calf is competent and measures 0.33 x 0.35 cm. Perforating Vessel mid calf is INCOMPETENT for greater than 0.5 seconds and measures 0.22 cm. VL/Venous Duplex US, Unilateral Interpretation Summary Chronic post thrombotic changes noted in the left tibioperoneal trunk vein, gas trocnemius vein. Positive for reflux in the left popliteal vein, communications instructor vein in calf. Ordering Physician: Renate Sesay Referring Physician: Wade Padilla Performed By: Laith Blankenship RVT
== END | disposition home or self-care (01) ==
LOC: CVS 07:57
PROVIDERS: PCP Internal Medicine; Referring Provider Physician Assistant; Visit Provider Physician Assistant
DX: M79.89 Other specified soft tissue disorders (principal); I87.2 Venous insufficiency (chronic) (peripheral)
CPT/HCPCS: 93971

== ENCOUNTER 2025-08-30 10:07 | Outpatient (RCR) | payer MEDICARE, SELFPAY ==
[2024-11-07 02:39] VITALS: BMI 28.6
[2025-08-20 09:06] LABS: Prothrombin Time (Protime)PT. 18.5 SECONDS (11.7-14.9)
[2025-08-25 08:36] LABS: Prothrombin Time (Protime)PT. 22.0 SECONDS (11.7-14.9)
[2025-08-30 11:06] LABS: Prothrombin Time (Protime)PT. 23.1 SECONDS (11.7-14.9)
== END 2025-08-30 18:00 | disposition home or self-care (01) ==
LOC: LAB 10:07
PROVIDERS: PCP Internal Medicine; Referring Provider Internal Medicine; Visit Provider Internal Medicine
DX: Z79.01 Long term (current) use of 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s
CPT/HCPCS: 36415; 85610